=== PATIENT | male | born 1945 | race Caucasian/White ===

== ENCOUNTER → 2017-01-07 | Outpatient (CLI) | payer MEDICARE, BC ==
[2017-01-07 09:23] LABS: CH 30.9; CHCM 33.9; HCT 36.5 % (39.0-53.0); HGB 12.7 gm/dL (13.0-17.5); MCH 31.8 pg (25.0-35.0); MCHC 34.7 g/dL (31.0-37.0); MCV 91.6 fL (80.0-100.0); RBC 3.99 m/uL (4.30-5.90); WBC 5.8 k/uL (3.8-10.6)
[2017-01-07 09:44] LABS: Hemoglobin A1C 7.8 % (4.2-6.1)
== END | disposition home or self-care (01) ==
LOC: LABWHC1 08:05
PROVIDERS: ATTEND Psychiatry & Neurology Psychiatry
DX: Z51.81 Encounter for therapeutic drug level monitoring (principal); Z79.899 Other long term (current) drug therapy; E11.9 Type 2 diabetes mellitus without complications
CPT/HCPCS: 36415; 80164; 83036; 84460; 85027

== ENCOUNTER → 2017-04-18 | Outpatient (CLI) | payer MEDICARE, BC ==
--- NOTE | 2017-04-18 21:21 | CONS ---
DATE OF CONSULTATION: 04/18/2017 CONSULTATION/NEW PATIENT EVALUATION 71-year-old gentleman who has been evaluated in the sleep center for obstructive sleep apnea-hypopnea syndrome. HISTORY OF PRESENT ILLNESS/SLEEP-WAKE EVALUATION: Patient had been diagnosed with obstructive sleep apnea in [facility] around 35 years ago, after that underwent surgery on the throat and then was started on treatment with CPAP. Patient continued to have treatment CPAP last sleep study was done around 30 years ago. SLEEP SCHEDULE: The patient usual sleep scheduled from around 10:30 p.m. until 7:30 a.m. FALLING ASLEEP: Usually no problem with falling asleep. No TV in bedroom. DURING SLEEP: He sleeps on the side position. He wakes up from sleep 2 times with nocturia. DURING THE DAY/WAKE STATE: No significant sleepiness during the day. PAST MEDICAL HISTORY: Positive for Parkinson disease, bipolar disorder, hyperlipidemia, cervical spondylosis, diabetes and ( ). Medications: 1. Lamictal. 2. Depakote. 3. Tamsulosin. 4. Synthroid. 5. Drisdol. 6. Lovastatin. 7. Dulera. 8. Glimepiride. 9. Sinemet. 10. Tramadol. SOCIAL HISTORY: Negative for smoking. History of alcohol abuse in the past. Not using alcohol at the present time. FAMILY HISTORY: Heart problems, arthritis, cancer, snoring, bronchitis, diabetes, thyroid problems, and during the sleep, mental illness. REVIEW OF SYSTEMS: No fevers. No double vision. No recent chest pain. No shortness of breath. No abdominal pain. No bleeding episodes. No blood in urine. No seizure episodes. During physical exam, gentleman without distress. VITAL SIGNS: BP 143/75, HR 70, RR 16. Height 5 feet 11 inches. Weight 231.6. BMI 32.2. Neck 16 2/3 inches in circumference. HEENT: PERRLA, EOMI evaluation of oropharynx showed moderately low position of soft palate. No uvula. Very short distance between soft palate and posterior pharyngeal wall. Nasal septum slightly isometric. NECK: Supple. No JVD. Thyroid is not palpable. LUNGS: Clear to percussion and to auscultation. Good air exchange. No wheezing or rhonchi. HEART: Systolic murmur on aorta. ABDOMEN: Obese. Soft and nontender. Bowel sounds are present. No organomegaly appreciated. EXTREMITIES: 1+ bilateral ankle edema. No clubbing or cyanosis. Very minimal tremor of the fingers. FLANGE TURNER: Awake, alert, and oriented x3. Cranial nerves 2 to 7 intact. There is no fasciculation or atrophy noted. No focal deficits observed. Tfwzzd-[id number] normal at the present time. IMPRESSION: 1. Obstructive sleep apnea-hypopnea syndrome. Patient is on treatment with CPAP. Last study done about 30 years ago. Patient significantly changed his weight since previous study. Awakenings from sleep with nocturia. 2. Obesity. 3. Parkinson disease. 4. Status post uvulaectomy. 5. Status post tonsillectomy. 6. Hyperlipidemia. 7. Obesity. 8. Cervical spondylosis. 9. Diabetes mellitus. 10. Bipolar disorder. 11. Hypothyroidism. PLAN: 1. CPAP titration for re-evaluation of effective CPAP pressure at the present time. 2. Losing weight. 3. Sleep hygiene with regular time in bed for at least 8 hours. 4. No driving if feeling any sleepiness. Thank you very much for allowing me to participate in the management of your patient Sincerely, Anil Vargas MD, PhD, FAASM. Diplomat of [place] [employer], Sleep Medicine Board by [place] [employer] [place] [employer] Culinary Worker of [facility] [place]
== END ==
LOC: SLEEP 15:24
PROVIDERS: ATTEND Internal Medicine
DX: G47.33 Obstructive sleep apnea (adult) (pediatric) (principal); E66.9 Obesity, unspecified; E78.5 Hyperlipidemia, unspecified; M47.812 Spondylosis without myelopathy or radiculopathy, cervical region; E11.9 Type 2 diabetes mellitus without complications; E03.9 Hypothyroidism, unspecified; F31.9 Bipolar disorder, unspecified; G20 Parkinson's disease; Z98.890 Other specified postprocedural states; Z79.899 Other long term (current) drug therapy
CPT/HCPCS: 99211

== ENCOUNTER → 2017-05-24 | Outpatient (CLI) | payer MEDICARE, BC ==
[2017-05-24 08:36] LABS: Calcium 9.1 mg/dL (8.4-10.2); Potassium 4.7 mmol/L (3.5-5.1); Total Bilirubin 0.2 mg/dL (0.2-1.3)
[2017-05-24 08:44] LABS: CH 30.9; CHCM 33.8; HCT 36.1 % (39.0-53.0); HDW 2.83; MCH 30.5 pg (25.0-35.0); MCHC 33.2 g/dL (31.0-37.0); MCV 91.7 fL (80.0-100.0); RBC 3.94 m/uL (4.30-5.90); RDW 14.5 % (11.5-15.5); WBC 5.2 k/uL (3.8-10.6)
[2017-05-24 09:00] LABS: Appearance,Urine Clear (Clear); Bilirubin,Urine Negative (Negative); Glucose,Urine (UA) Negative (Negative); Ketones,Urine Negative (Negative); Leukocyte Esterase,Urine Negative (Negative); Nitrite,Urine Negative (Negative); PH, Urine 5.5 (5.0-8.0); Protein,Urine Negative (Negative); Specific Gravity,Urine 1.008 (1.001-1.035); UA Billing (MACRO vs. MICRO) CHEM; Urobilinogen,Urine <2.0 mg/dL (<2.0)
[2017-05-24 22:14] LABS: Hemoglobin A1C 6.5 % (4.2-6.1)
== END | disposition home or self-care (01) ==
LOC: LABWHC1 07:50
PROVIDERS: ATTEND Psychiatry & Neurology Psychiatry
DX: F31.60 Bipolar disorder, current episode mixed, unspecified (principal); E78.5 Hyperlipidemia, unspecified; E03.9 Hypothyroidism, unspecified
CPT/HCPCS: 36415; 80053; 80061; 81003; 83036; 84439; 84443; 85027

== ENCOUNTER → 2017-06-07 | Outpatient (CLI) | payer MEDICARE, BC ==
[2017-06-07 07:38] LABS: Appearance,Urine Clear (Clear); Bilirubin,Urine Negative (Negative); Glucose,Urine (UA) Negative (Negative); Ketones,Urine Negative (Negative); Leukocyte Esterase,Urine Negative (Negative); Nitrite,Urine Negative (Negative); PH, Urine 5.5 (5.0-8.0); Protein,Urine Negative (Negative); Specific Gravity,Urine 1.007 (1.001-1.035); UA Billing (MACRO vs. MICRO) CHEM; Urobilinogen,Urine <2.0 mg/dL (<2.0)
[2017-06-07 08:45] LABS: Basophils % (A) 1 %; CH 30.7; CHCM 33.6; Eosinophils # (A) 0.2 k/uL (0-0.7); Eosinophils % (A) 3 %; HCT 36.4 % (39.0-53.0); HGB 12.3 gm/dL (13.0-17.5); Luc # (Auto) 0.15; Luc % (Auto) 3; Lymphocytes # (A) 2.2 k/uL (1.0-4.8); Lymphocytes % (A) 42 %; MCHC 33.7 g/dL (31.0-37.0); MCV 91.8 fL (80.0-100.0); Mean Platelet Volume 6.9; Monocytes # (A) 0.3 k/uL (0-1.0); Monocytes % (A) 6 %; Neutrophils # (A) 2.4 k/uL (1.3-7.7); Neutrophils % (A) 46 %; RBC 3.96 m/uL (4.30-5.90); RDW 14.7 % (11.5-15.5); WBC 5.2 k/uL (3.8-10.6)
[2017-06-07 11:39] LABS: Calcium 9.4 mg/dL (8.4-10.2); Magnesium 2.2 mg/dL (1.6-2.3); Phosphorous 4.3 mg/dL (2.5-4.5); Potassium 4.9 mmol/L (3.5-5.1); Uric Acid 6.9 mg/dL (3.5-8.5)
[2017-06-07 11:51] LABS: % Iron Saturation 19.4 % (20-50)
== END | disposition home or self-care (01) ==
LOC: LABWHC1 06:53
PROVIDERS: ATTEND Nurse Practitioner Family
DX: N18.4 Chronic kidney disease, stage 4 (severe) (principal); E55.9 Vitamin D deficiency, unspecified; N25.81 Secondary hyperparathyroidism of renal origin; M10.9 Gout, unspecified; N39.0 Urinary tract infection, site not specified
CPT/HCPCS: 36415; 80048; 81003; 82306; 82728; 83540; 83550; 83735; 83970; 84100; 84550; 85025

== ENCOUNTER → 2017-09-20 | Outpatient (CLI) | payer MEDICARE, BC ==
[2017-09-20 08:38] LABS: Basophils % (A) 1 %; CH 30.5; Eosinophils # (A) 0.1 k/uL (0-0.7); Eosinophils % (A) 3 %; HCT 36.6 % (39.0-53.0); HDW 2.94; HGB 12.2 gm/dL (13.0-17.5); Luc # (Auto) 0.12; Luc % (Auto) 3; Lymphocytes # (A) 1.7 k/uL (1.0-4.8); Lymphocytes % (A) 36 %; MCHC 33.3 g/dL (31.0-37.0); Monocytes # (A) 0.3 k/uL (0-1.0); Monocytes % (A) 6 %; Neutrophils # (A) 2.5 k/uL (1.3-7.7); Neutrophils % (A) 53 %; RBC 4.07 m/uL (4.30-5.90); RDW 13.6 % (11.5-15.5); WBC 4.7 k/uL (3.8-10.6); WBC (Perox) 4.98
[2017-09-20 08:41] LABS: Appearance,Urine Clear (Clear); Bilirubin,Urine Negative (Negative); Glucose,Urine (UA) Negative (Negative); Ketones,Urine Negative (Negative); Leukocyte Esterase,Urine Negative (Negative); Nitrite,Urine Negative (Negative); Protein,Urine Negative (Negative); Specific Gravity,Urine 1.007 (1.001-1.035); UA Billing (MACRO vs. MICRO) CHEM; Urobilinogen,Urine <2.0 mg/dL (<2.0)
[2017-09-20 09:02] LABS: Calcium 9.3 mg/dL (8.4-10.2); Magnesium 2.1 mg/dL (1.6-2.3); Phosphorus 3.3 mg/dL (2.5-4.5); Total Bilirubin 0.2 mg/dL (0.2-1.3); Total Protein 6.3 g/dL (6.3-8.2); Uric Acid 6.5 mg/dL (3.5-8.5)
[2017-09-20 09:23] LABS: Prostate Specific Antigen 1.11 ng/mL (0.00-4.00)
[2017-09-20 14:57] LABS: Urine Creatinine 49.1 mg/dL
== END | disposition home or self-care (01) ==
LOC: LABWHC1 08:08
PROVIDERS: ATTEND Psychiatry & Neurology Psychiatry
DX: N18.3 Chronic kidney disease, stage 3 (moderate) (principal); G20 Parkinson's disease; E78.5 Hyperlipidemia, unspecified; E11.9 Type 2 diabetes mellitus without complications; N40.0 Benign prostatic hyperplasia without lower urinary tract symptoms; F31.60 Bipolar disorder, current episode mixed, unspecified; Z79.899 Other long term (current) drug therapy
CPT/HCPCS: 36415; 80053; 80061; 80164; 80175; 81003; 82043; 82306; 82550; 82570; 83036; 83735; 84100; 84153; 84439; 84443; 84550; 85025

== ENCOUNTER → 2017-10-02 | Outpatient (CLI) | payer MEDICARE, BC ==
--- NOTE | 2017-10-02 17:41 | PN ---
PROGRESS NOTE DATE OF SERVICE: 10/02/2017 72-year-old gentleman has been followed in Sleep Center for treatment of obstructive sleep apnea-hypopnea syndrome. The last CPAP titration done in 04/21/2017 and after that, I wrote patient prescription for new CPAP unit. Subsequently, he received new CPAP unit and now he came for followup visit. The patient is able to use his machine without any problems with relation to his mask pressure or humidity. He is using full-face mask. Edwards Sleepiness Scale today is 0. I checked patient's CPAP unit. Usage is 26/30 nights for more than 4 hours average 8.4 hours. Pressure in the range from 5-15. Most of the time pressure is 12 cm of water. Leak is only 4 L/minute which is perfect. Apnea-hypopnea index for the last month is 5.6, for the last 3 months is 5.4, for the last 6 months is 5.4. PHYSICAL EXAM: Patient in no distress. BP 137/69, HR 69, RR 16, weight 236.4, temperature 98.1, oxygen saturation on room 98%. Oropharynx low position of soft palate. ABDOMEN: Obese. Neck Supple, no JVD. Thyroid is not palpable. LUNGS Clear to percussion and to auscultation. Good air exchange. No wheezing or rhonchi. HEART S1, S2 regular. No gallops, or rubs. Slight systolic murmur. ABDOMEN Soft and nontender. Bowel sounds are present. No organomegaly appreciated. EXTREMITIES No clubbing or cyanosis. PAYROLL MANAGER Awake, alert, and oriented X3. Cranial nerves 2 to 7 intact. There is no fasciculation or atrophy. noted. No focal deficits observed. IMPRESSION: 1. Obstructive sleep apnea-hypopnea syndrome on control with CPAP at the pressure of 12 cm of water. Patient demonstrated good compliance with treatment benefitting from treatment. 2. Obesity. 3. Bipolar. 4. Parkinson disease. 5. Diabetes mellitus. 6. Hypothyroidism. 7. History of cervical spondylosis. 8. Status post uvulectomy. 9. Status post tonsillectomy. PLAN: 1. Continue treatment with CPAP every night for the whole night with the same pressure. 2. Losing weight. 3. Sleep hygiene with regular time in bed for at least 8 hours. 4. No driving if feeling sleepiness. Thank you very much for allowing me to participate in management of your patient. Sincerely. Anil Vargas MD, PhD, FAASM Diplomat of [place] [employer] [place] [employer] Flying Teacher of [facility] [place] MMISAK / CARLIE: [id number] /
== END | disposition home or self-care (01) ==
LOC: SLEEP 14:12
PROVIDERS: ATTEND Internal Medicine
DX: G47.33 Obstructive sleep apnea (adult) (pediatric) (principal); E66.9 Obesity, unspecified; F31.9 Bipolar disorder, unspecified; G20 Parkinson's disease; E11.9 Type 2 diabetes mellitus without complications; E03.9 Hypothyroidism, unspecified; Z98.890 Other specified postprocedural states

== ENCOUNTER 2017-10-24 09:33 | Day surgery (SDC) | payer MEDICARE, BC ==
[2017-10-23 13:27] VITALS: BMI 31.1
[2017-10-24 10:28] VITALS: RESP 16; TEMP 97.7
[2017-10-24] MEDS ORDERED: LACTATED RINGERS 1,000 ML IV ONE (10:29)
[2017-10-24 10:33] LABS: Glucose,Whole Blood 135 mg/dL (75-99)
[2017-10-24] MEDS ORDERED: PROPOFOL 10 MG/ML 20 ML VIAL IV ONE (11:04)
[2017-10-24] MEDS ORDERED: LIDOCAINE 1% INJ 10MG/ML (20 ML MDV) ONE (11:04)
--- NOTE | 2017-10-24 11:27 | P.PCN ---
Date of Procedure: 10/24/17 Procedure(s) Performed: BRIEF HISTORY: Patient is a 72-year-old pleasant white male, scheduled for an elective colonoscopy as a part of screening for colorectal neoplasia. PROCEDURE PERFORMED: Colonoscopy. PREOPERATIVE DIAGNOSIS: Screening for colon cancer. IV sedation per Anesthesia. PROCEDURE: After informed consent was obtained, the patient, was brought into the endoscopy unit. IV sedation was administered by Anesthesia under continuous monitoring. Digital rectal examination was normal. Initially the Olympus CF- 160 flexible video colonoscope was then inserted in the rectum, gradually advanced into the cecum without any difficulty. Careful examination was performed as the scope was gradually being withdrawn. Ileocecal valve and the appendiceal orifice were visualized and appeared normal. Prep was excellent. Mucosa of the cecum, appeared normal. In the ascending colon there were 2 polyps measuring 1 cm and 2 cm in size both of which were broad-based removed by piecemeal snare polypectomy. Following polypectomy there was some bleeding identified and hence a resolution clip was placed for good hemostasis. The rest of the ascending colon, appeared normal. In the transverse colon there was another 1 cm polyp removed by snare polypectomy. Rest of the transverse colon, descending colon, sigmoid colon, and rectum appeared normal. Moderate left sided diverticulosis seen. Retroflexion was performed in the rectum and no lesions were seen. The patient tolerated the procedure well. IMPRESSION: 1 cm and 2 cm broad-based polyps in the ascending colon status post piecemeal snare polypectomy, with some oozing status post resolution clip placement for hemostasis 1 cm transverse colon polyp serous was snare polypectomy Moderate left-sided diverticulosis RECOMMENDATIONS: Findings of this examination were discussed with the patient as well as a family. He was advised to follow with the biopsy results. If the biopsy shows an adenoma he can have a repeat colonoscopy in 2-3 years..
[2017-10-24 12:27] VITALS: BP 154/72; PULSE 62
== END 2017-10-24 12:39 | disposition home or self-care (01) ==
LOC: ORWHC2ENDO 09:33
PROVIDERS: ATTEND Internal Medicine Gastroenterology
DX: D12.2 Benign neoplasm of ascending colon (principal); D12.3 Benign neoplasm of transverse colon; K57.30 Diverticulosis of large intestine without perforation or abscess without bleeding; E78.5 Hyperlipidemia, unspecified; G47.33 Obstructive sleep apnea (adult) (pediatric); E07.9 Disorder of thyroid, unspecified; Z79.84 Long term (current) use of oral hypoglycemic drugs; Z79.899 Other long term (current) drug therapy
CPT/HCPCS: 88305; 45385; J2001; J2704; 45382

== ENCOUNTER → 2018-01-09 | Outpatient (CLI) | payer MEDICARE, BC ==
[2018-01-09 08:43] LABS: Basophils % (A) 1 %; Eosinophils # (A) 0.1 k/uL (0-0.7); Eosinophils % (A) 3 %; HCT 35.5 % (39.0-53.0); HGB 11.8 gm/dL (13.0-17.5); Lymphocytes # (A) 1.7 k/uL (1.0-4.8); Lymphocytes % (A) 37 %; MCH 29.5 pg (25.0-35.0); MCHC 33.2 g/dL (31.0-37.0); Mean Platelet Volume 7.1; Monocytes # (A) 0.3 k/uL (0-1.0); Monocytes % (A) 6 %; Neutrophils # (A) 2.4 k/uL (1.3-7.7); Neutrophils % (A) 52 %; Platelet Count 163 k/uL (150-450); RBC 3.99 m/uL (4.30-5.90); WBC 4.6 k/uL (3.8-10.6)
[2018-01-09 08:45] LABS: Appearance,Urine Clear (Clear); Bilirubin,Urine Negative (Negative); Blood,Urine Negative (Negative); Color,Urine Light Yellow; Glucose,Urine (UA) Negative (Negative); Ketones,Urine Negative (Negative); Leukocyte Esterase,Urine Negative (Negative); PH, Urine 5.5 (5.0-8.0); Protein,Urine Trace (Negative); Specific Gravity,Urine 1.009 (1.001-1.035); Urobilinogen,Urine <2.0 mg/dL (<2.0)
[2018-01-09 10:30] LABS: Albumin 3.8 g/dL (3.5-5.0); Calcium 9.7 mg/dL (8.4-10.2); Phosphorus 3.6 mg/dL (2.5-4.5); Potassium 4.7 mmol/L (3.5-5.1); Total Bilirubin 0.2 mg/dL (0.2-1.3); Total Protein 6.4 g/dL (6.3-8.2); Uric Acid 6.7 mg/dL (3.5-8.5)
[2018-01-09 10:36] LABS: Valproic Acid (Depakene) 47.9 ug/mL
[2018-01-09 16:55] LABS: Parathyroid Hormone Intact 126.3 pg/mL (14.0-72.0)
[2018-01-09 16:56] LABS: Iron Saturation 18.62 (15.00-50.00)
== END | disposition home or self-care (01) ==
LOC: LABWHC1 08:10
PROVIDERS: ATTEND Nurse Practitioner Family
DX: F31.9 Bipolar disorder, unspecified (principal); E78.5 Hyperlipidemia, unspecified; E11.22 Type 2 diabetes mellitus with diabetic chronic kidney disease; N18.4 Chronic kidney disease, stage 4 (severe); D63.1 Anemia in chronic kidney disease; M10.9 Gout, unspecified; N39.0 Urinary tract infection, site not specified; E55.9 Vitamin D deficiency, unspecified
CPT/HCPCS: 36415; 80053; 80061; 80164; 80175; 81003; 82550; 82728; 83540; 83550; 83735; 83970; 84100; 84550; 85025

== ENCOUNTER → 2018-04-25 | Outpatient (CLI) | payer MEDICARE, BC ==
[2018-04-25 10:34] LABS: Basophils # (A) 0.1 k/uL (0-0.2); Basophils % (A) 1 %; Eosinophils # (A) 0.1 k/uL (0-0.7); Eosinophils % (A) 2 %; HCT 38.9 % (39.0-53.0); HGB 12.8 gm/dL (13.0-17.5); Lymphocytes # (A) 1.9 k/uL (1.0-4.8); Lymphocytes % (A) 34 %; MCHC 32.9 g/dL (31.0-37.0); MCV 91.2 fL (80.0-100.0); Mean Platelet Volume 6.2; Monocytes # (A) 0.3 k/uL (0-1.0); Monocytes % (A) 6 %; Neutrophils # (A) 3.1 k/uL (1.3-7.7); Neutrophils % (A) 55 %; Platelet Count 183 k/uL (150-450); RBC 4.27 m/uL (4.30-5.90); RDW 14.5 % (11.5-15.5); WBC 5.6 k/uL (3.8-10.6)
[2018-04-25 10:41] LABS: Albumin 3.9 g/dL (3.5-5.0); Calcium 9.6 mg/dL (8.4-10.2); Magnesium 2.1 mg/dL (1.6-2.3); Phosphorus 3.7 mg/dL (2.5-4.5); Total Bilirubin 0.3 mg/dL (0.2-1.3); Total Protein 6.3 g/dL (6.3-8.2); Uric Acid 5.9 mg/dL (3.5-8.5)
[2018-04-25 10:46] LABS: Valproic Acid (Depakene) 41.2 ug/mL
[2018-04-25 10:59] LABS: Appearance,Urine Clear (Clear); Bilirubin,Urine Negative (Negative); Blood,Urine Negative (Negative); Color,Urine Light Yellow; Glucose,Urine (UA) Negative (Negative); Ketones,Urine Negative (Negative); Leukocyte Esterase,Urine Negative (Negative); Nitrite,Urine Negative (Negative); Protein,Urine Trace (Negative); T4, Free (Free Thyroxine) 0.9 ng/dL (0.78-2.19); Urobilinogen,Urine <2.0 mg/dL (<2.0)
[2018-04-25 17:13] LABS: Iron Saturation 30.06 (15.00-50.00)
[2018-04-25 17:21] LABS: Vitamin D 25 Hydroxy 46.4 ng/mL (30.0-100.0)
[2018-04-25 17:37] LABS: Parathyroid Hormone Intact 140.7 pg/mL (14.0-72.0)
[2018-04-25 18:32] LABS: Hemoglobin A1C 7.7 % (4.0-6.0)
== END | disposition home or self-care (01) ==
LOC: LABWHC1 09:32
PROVIDERS: ATTEND Psychiatry & Neurology Psychiatry
DX: E78.5 Hyperlipidemia, unspecified (principal); E11.22 Type 2 diabetes mellitus with diabetic chronic kidney disease; N18.4 Chronic kidney disease, stage 4 (severe); D63.1 Anemia in chronic kidney disease; F31.9 Bipolar disorder, unspecified; E55.9 Vitamin D deficiency, unspecified; N39.0 Urinary tract infection, site not specified; E21.3 Hyperparathyroidism, unspecified; M10.9 Gout, unspecified; F31.60 Bipolar disorder, current episode mixed, unspecified; E03.9 Hypothyroidism, unspecified; Z79.899 Other long term (current) drug therapy
CPT/HCPCS: 36415; 80053; 80061; 80164; 80175; 81003; 82306; 82550; 82728; 83036; 83540; 83550; 83735; 83970; 84100; 84439; 84443; 84550; 85025

== ENCOUNTER → 2018-05-29 | Outpatient (CLI) | payer MEDICARE, BC ==
--- NOTE | 2018-05-29 09:06 | US ---
EXAMINATION TYPE: US kidneys/renal and bladder DATE OF EXAM: 05/29/2018 COMPARISON: CLINICAL HISTORY: N184 CKD. Hx of left kidney simple cyst. abnormal labs. EXAM MEASUREMENTS: Right Kidney: 9.5 x 4.4 x 5.4 cm Left Kidney: 10.4 x 3.9 x 5.4 cm Right Kidney: No hydronephrosis or masses seen Left Kidney: Two cystic appearing lesions seen. 1- Mid cortical simple appearing cyst = 2.9 x 3.0 x 2 .6 cm. 2- lower pole in renal sinus= 1.5 x 1.4 x 1.3 cm Bladder: distended, wnl as visualized Bilateral Jets seen There is no evidence for hydronephrosis at this point in time. No nephrolithiasis is seen. No solid masses are identified. The urinary bladder is anechoic. Bilateral ureteral jets are seen. IMPRESSION: 1. Simple cyst left kidney.
== END | disposition home or self-care (01) ==
LOC: RADUSWWP 08:12
PROVIDERS: ATTEND Internal Medicine Nephrology
DX: N28.1 Cyst of kidney, acquired (principal); N18.4 Chronic kidney disease, stage 4 (severe)
CPT/HCPCS: 76770

== ENCOUNTER → 2018-06-23 | Outpatient (CLI) | payer MEDICARE, BC ==
[2018-06-23 10:14] LABS: HCT 34.3 % (39.0-53.0); HGB 11.8 gm/dL (13.0-17.5); MCH 30.6 pg (25.0-35.0); MCHC 34.4 g/dL (31.0-37.0); MCV 89.2 fL (80.0-100.0); Mean Platelet Volume 6.3; Platelet Count 162 k/uL (150-450); RBC 3.85 m/uL (4.30-5.90); RDW 14.1 % (11.5-15.5); WBC 4.5 k/uL (3.8-10.6)
[2018-06-23 10:30] LABS: Valproic Acid (Depakene) 61.5 ug/mL
== END | disposition home or self-care (01) ==
LOC: LABWHC1 09:16
PROVIDERS: ATTEND Psychiatry & Neurology Psychiatry
DX: F31.60 Bipolar disorder, current episode mixed, unspecified (principal); E03.9 Hypothyroidism, unspecified; Z79.899 Other long term (current) drug therapy
CPT/HCPCS: 36415; 80164; 82565; 84443; 85027

== ENCOUNTER → 2018-08-14 | Outpatient (CLI) | payer MEDICARE, BC ==
[2018-08-14 16:31] LABS: Basophils % (A) 1 %; Eosinophils # (A) 0.1 k/uL (0-0.7); Eosinophils % (A) 2 %; HCT 35.1 % (39.0-53.0); HGB 11.8 gm/dL (13.0-17.5); Lymphocytes # (A) 1.8 k/uL (1.0-4.8); Lymphocytes % (A) 35 %; MCH 29.9 pg (25.0-35.0); MCHC 33.7 g/dL (31.0-37.0); MCV 88.8 fL (80.0-100.0); Mean Platelet Volume 6.7; Monocytes # (A) 0.3 k/uL (0-1.0); Monocytes % (A) 5 %; Neutrophils # (A) 2.9 k/uL (1.3-7.7); Neutrophils % (A) 55 %; Platelet Count 165 k/uL (150-450); RBC 3.96 m/uL (4.30-5.90); RDW 14.2 % (11.5-15.5); WBC 5.3 k/uL (3.8-10.6)
[2018-08-14 16:42] LABS: Calcium 9.4 mg/dL (8.4-10.2)
== END | disposition home or self-care (01) ==
LOC: LABPAT 13:46
PROVIDERS: ATTEND Urology
DX: Z01.812 Encounter for preprocedural laboratory examination (principal); N40.1 Benign prostatic hyperplasia with lower urinary tract symptoms; E11.9 Type 2 diabetes mellitus without complications; N13.8 Other obstructive and reflux uropathy
CPT/HCPCS: 36415; 80048; 85025

== ENCOUNTER 2018-08-21 07:38 | Day surgery (SDC) | payer MEDICARE, BC ==
--- NOTE | 2018-08-17 08:54 | P.GSHP ---
History of Present Illness H&P Date: 08/17/18 Chief Complaint: Weak urinary stream The patient is a 73-year-old male with a long history of BPH. He has become increasingly bothered by his voiding symptoms. He reports a weak urinary stream with postvoid dribbling, hesitancy, and intermittency. Bladder emptying is adequate. He is currently taking Flomax, without benefit. - Cardiovascular Cardiovascular: Reports high blood pressure - Genitourinary (Male) Genitourinary: Reports as per HPI Past Medical History Past Medical History: Diabetes Mellitus, Hyperlipidemia, Sleep Apnea/CPAP/BIPAP , Thyroid Disorder History of Any Multi-Drug Resistant Organisms: None Reported Past Surgical History: Orthopedic Surgery, Tonsillectomy Additional Past Surgical History / Comment(s): left knee arthroscopy, left foot bone spur, cataract(not sure what eye), Past Anesthesia/Blood Transfusion Reactions: No Reported Reaction Smoking Status: Former smoker - Past Family History Father Family Medical History: Cancer Medications and Allergies Home Medications Medication Instructions Recorded Confirmed Type Divalproex [Depakote] 1,000 mg PO HS 01/29/16 10/23/17 History Levothyroxine Sodium [Synthroid] 200 mcg PO DAILY 01/29/16 10/24/17 History Lovastatin [Mevacor] 40 mg PO HS 01/29/16 10/23/17 History lamoTRIgine [LaMICtal] 200 mg PO DAILY 01/29/16 10/24/17 History traMADol HCl [Ultram] 50 mg PO Q6H PRN #30 tab 01/29/16 10/23/17 Rx Januvia(Dose Unknown) 1 tab PO 1200 10/23/17 10/24/17 History Levothyroxine Sodium [Synthroid] 100 mcg PO MOFR 10/23/17 10/24/17 History Sinement(Dose Unknown) 1 tab PO BID 10/23/17 10/23/17 History Tamsulosin [Flomax] 0.4 mg PO HS 10/23/17 10/23/17 History Allergies Allergy/AdvReac Type Severity Reaction Status Date / Time No Known Allergies Allergy Verified 10/23/17 13:20 Surgical - Exam - General well developed, well nourished, no distress - Neck no masses - Respiratory normal respiratory effort, clear to auscultation - Cardiovascular Rhythm: regular Abnormal Heart Sounds: no systolic murmur, no diastolic murmur, no rub, no S3 Gallop, no S4 Gallop, no click, no other - Abdomen Abdomen: soft, non tender, no guarding, no rigid, no rebound - Genitourinary normal penis with no external lesions, testicles non-tender - Rectum Rectum: normal sphincter tone, no masses, other (Prostate moderately enlarged and smooth) - Psychiatric oriented to time, oriented to person, oriented to place, speech is normal, memory intact Assessment and Plan (1) Enlarged prostate with lower urinary tract symptoms (LUTS) Status: Acute Code(s): N40.1 - BENIGN PROSTATIC HYPERPLASIA WITH LOWER URINARY TRACT SYMP SNOMED Code(s): 699911697 Plan: Cystoscopy, TURP: I discussed the options concerning surgery versus medication. I advised him with regard to TURP as opposed to minimally invasive procedures such as TUMT. TURP was also contrasted with TULVP. Potential risks were discussed, including anesthesia, bleeding, infection, retrograde ejaculation, incontinence, erectile dysfunction, and vesical neck contracture. It is anticipated that he may be admitted post-operatively, likely for one night. The patient expressed an understanding with regard to possible complications and outcome.
[2018-08-18 12:48] VITALS: BMI 30.5
[~2018-08-21 07:38] MED LIST: LACTATED RINGERS 1,000 ML IV SCH; ONDANSETRON 4 MG/2 ML VIAL IVP PRN; ceFAZolin IN SWFI 2 GM/20 ML SYRINGE IVP ONE
[2018-08-21] MEDS ORDERED: LIDOCAINE 1% 20 ML VIAL (10MG/ML) FOR IV START INTRADERMA ONE (08:03)
[2018-08-21 08:08] LABS: Glucose,Whole Blood 142 mg/dL (75-99)
[2018-08-21] MEDS ORDERED: SUCCINYLCHOLINE CHLORIDE VIAL 200 MG/10 ML VIAL IV ONE (10:14)
[2018-08-21] MEDS ORDERED: MIDAZOLAM 2 MG/2 ML VIAL ONE (10:14)
[2018-08-21] MEDS ORDERED: GLYCOPYRROLATE 0.2 MG/ML 2 ML VIAL ONE (10:14)
[2018-08-21] MEDS ORDERED: LIDOCAINE 1% INJ 10MG/ML (20 ML MDV) ONE (10:14)
[2018-08-21] MEDS ORDERED: PROPOFOL 10 MG/ML 20 ML VIAL IV ONE (10:14)
[2018-08-21] MEDS ORDERED: fentaNYL (PF) 50 MCG/ML 2 ML AMP ONE (10:14)
[2018-08-21] MEDS ORDERED: LACTATED RINGERS 1,000 ML IV ONE (10:49)
--- NOTE | 2018-08-21 12:18 | P.OP ---
Date of Procedure: 08/21/18 Preoperative Diagnosis: BPH with Obstruction Postoperative Diagnosis: Same Procedure(s) Performed: Cystoscopy, Bipolar Transurethral Resection of Prostate (TURP) Anesthesia: OZZIE Surgeon: Sahil Noguera Estimated Blood Loss (ml): 50 IV fluids (ml): 800 Pathology: other (Prostate chips) Condition: stable Disposition: PACU Indications for Procedure: The patient is a 73-year-old male with a long history of BPH. He has become increasingly bothered by his voiding symptoms. He reports a weak urinary stream with postvoid dribbling, hesitancy, and intermittency. Bladder emptying is adequate. He is currently taking Flomax, without benefit, and he has elected to undergo a TURP. Operative Findings: High median bar, lateral lobe obstruction. Description of Procedure: The patient was taken in the operating room and placed in the dorsolithotomy position. The external genitalia was prepped and draped sterilely. The 25- [place] ACMI resectoscope sheath was introduced into the bladder. The bladder was inspected. Both ureteral orifices were of normal anatomic location and configuration, and clear urine effluxed from both. No tumors or foreign bodies were seen. Examination of the prostate revealed complete obstruction with a bilobar configuration and a high median bar. Using the bipolar cutting loop, the lateral lobes were resected down to the surgical capsule. The floor of the prostate was then resected, proximal to the verumontanum. Lastly, any remaining anterior tissue was resected. The remaining apical tissue was then carefully resected. The resection was carried down to the surgical capsule in all 4 quadrants. The prostatic fossa was then carefully examined, and any areas of bleeding were controlled with electrocautery. A small capsular perforation was noted on the right, but no venous sinuses were exposed. Excellent hemostasis was attained. The resectoscope was withdrawn into the bulbous urethra. The external urinary sphincter remained intact. The prostatic fossa was open. The [employer] evacuator was used to remove all prostate chips from the bladder. These were saved and sent for pathologic examination. The resectoscope was removed, and a 20 [place] [employer] catheter was placed. The return was essentially clear. The patient tolerated the procedure well was taken to the recovery room in stable condition.
[2018-08-21 12:24] VITALS: TEMP 97.4
[2018-08-21 12:36] VITALS: RESP 16
[2018-08-21 12:45] LABS: Glucose,Whole Blood 150 mg/dL (75-99)
[2018-08-21 13:21] VITALS: BP 148/82
[2018-08-21 13:35] VITALS: PULSE 76
== END 2018-08-21 13:54 | disposition home or self-care (01) ==
LOC: OR 07:38
PROVIDERS: ATTEND Urology
DX: N40.1 Benign prostatic hyperplasia with lower urinary tract symptoms (principal); R39.12 Poor urinary stream; N39.43 Post-void dribbling; R39.11 Hesitancy of micturition; E11.9 Type 2 diabetes mellitus without complications; G47.30 Sleep apnea, unspecified; F19.20 Other psychoactive substance dependence, uncomplicated; E07.9 Disorder of thyroid, unspecified; Z87.891 Personal history of nicotine dependence; Z79.890 Hormone replacement therapy; Z79.899 Other long term (current) drug therapy
CPT/HCPCS: 88305; 52601; J2250; J0330; J2405; J2001; J3010; J2704; J0690

== ENCOUNTER → 2018-12-18 | Outpatient (CLI) | payer MEDICARE, BC ==
[2018-12-18 10:15] LABS: Appearance,Urine Clear (Clear); Bilirubin,Urine Negative (Negative); Blood,Urine Negative (Negative); Color,Urine Light Yellow; Glucose,Urine (UA) Negative (Negative); Ketones,Urine Negative (Negative); Leukocyte Esterase,Urine Negative (Negative); Nitrite,Urine Negative (Negative); Protein,Urine Negative (Negative); Specific Gravity,Urine 1.009 (1.001-1.035); Urobilinogen,Urine <2.0 mg/dL (<2.0)
[2018-12-18 10:17] LABS: Basophils % (A) 1 %; Eosinophils # (A) 0.1 k/uL (0-0.7); Eosinophils % (A) 2 %; HCT 37.2 % (39.0-53.0); Lymphocytes # (A) 1.2 k/uL (1.0-4.8); Lymphocytes % (A) 24 %; MCH 29.6 pg (25.0-35.0); MCHC 32.2 g/dL (31.0-37.0); Mean Platelet Volume 6.5; Monocytes # (A) 0.3 k/uL (0-1.0); Monocytes % (A) 7 %; Neutrophils # (A) 3.1 k/uL (1.3-7.7); Neutrophils % (A) 65 %; Platelet Count 160 k/uL (150-450); RBC 4.05 m/uL (4.30-5.90); RDW 14.4 % (11.5-15.5); WBC 4.8 k/uL (3.8-10.6)
[2018-12-18 16:18] LABS: Iron Saturation 21.67 (15.00-50.00)
[2018-12-18 16:24] LABS: Valproic Acid (Depakene) 44.8 ug/mL (50.0-100.0)
[2018-12-18 16:33] LABS: Carbon Dioxide 26.4 mmol/L (21.6-31.8); Magnesium 2.2 mg/dL (1.5-2.4); Phosphorus 4.4 mg/dL (2.4-5.1); Uric Acid 5.6 mg/dL (3.7-8.7)
[2018-12-18 16:34] LABS: Anion Gap 8.6 mmol/L (4.00-12.00); Calcium 9.3 mg/dL (8.7-10.3)
[2018-12-18 17:11] LABS: Parathyroid Hormone Intact 229.8 pg/mL (14.0-72.0)
== END | disposition home or self-care (01) ==
LOC: LABWHC1 09:16
PROVIDERS: ATTEND Nurse Practitioner Family
DX: F31.60 Bipolar disorder, current episode mixed, unspecified (principal); N18.4 Chronic kidney disease, stage 4 (severe); D63.1 Anemia in chronic kidney disease; E55.9 Vitamin D deficiency, unspecified; E21.3 Hyperparathyroidism, unspecified; M10.9 Gout, unspecified; N39.0 Urinary tract infection, site not specified
CPT/HCPCS: 36415; 80048; 80164; 81003; 82728; 83540; 83550; 83735; 83970; 84100; 84460; 84550; 85025

== ENCOUNTER → 2019-06-09 | Outpatient (CLI) | payer MEDICARE, BC ==
[2019-06-09 10:46] LABS: Appearance,Urine Clear (Clear); Bilirubin,Urine Negative (Negative); Blood,Urine Negative (Negative); Color,Urine Light Yellow; Glucose,Urine (UA) Negative (Negative); Ketones,Urine Negative (Negative); Leukocyte Esterase,Urine Negative (Negative); Nitrite,Urine Negative (Negative); Protein,Urine Trace (Negative); Urobilinogen,Urine <2.0 mg/dL (<2.0)
[2019-06-09 10:48] LABS: HCT 35.4 % (39.0-53.0); HGB 11.9 gm/dL (13.0-17.5); MCH 30.4 pg (25.0-35.0); MCHC 33.5 g/dL (31.0-37.0); MCV 90.8 fL (80.0-100.0); Mean Platelet Volume 6.7; Platelet Count 174 k/uL (150-450); RBC 3.89 m/uL (4.30-5.90); RDW 14.8 % (11.5-15.5); WBC 5.5 k/uL (3.8-10.6)
[2019-06-09 15:55] LABS: Iron Saturation 22.29 (15.00-50.00)
[2019-06-09 16:04] LABS: Vitamin D 25 Hydroxy 49.1 ng/mL (30.0-100.0)
[2019-06-09 16:12] LABS: Hemoglobin A1C 7.3 % (4.0-6.0)
[2019-06-09 16:14] LABS: African American GFR (CKD) 24.6 (60.0-200.0); Albumin 3.8 g/dL (3.80-4.90); Albumin/Globulin Ratio 1.9 (1.60-3.17); BUN/Creat Ratio 14.29 Ratio (12.00-20.00); Calcium 9.2 mg/dL (8.7-10.3); LDL Cholesterol,Calculated 78.4 mg/dL (0.0-131.0); Phosphorus 3.4 mg/dL (2.4-5.1); Potassium 4.5 mmol/L (3.5-5.5); Total Bilirubin 0.3 mg/dL (0.3-1.2); Total Protein 5.8 g/dL (6.2-8.2); Uric Acid 7.1 mg/dL (3.7-8.7); VLDL Calculation 60.6 mg/dL (5.00-40.00)
[2019-06-09 16:21] LABS: T4, Free (Free Thyroxine) 1.2 ng/dL (0.80-1.80)
[2019-06-09 17:48] LABS: Creatinine,Urine Random 64.2 mg/dL
[2019-06-09 18:22] LABS: Total Protein,Urine Random 16.2 mg/dL (0.0-13.5)
== END | disposition home or self-care (01) ==
LOC: LABWHC1 09:50
PROVIDERS: ATTEND Internal Medicine
DX: N39.0 Urinary tract infection, site not specified (principal); M10.9 Gout, unspecified; D64.9 Anemia, unspecified; E11.22 Type 2 diabetes mellitus with diabetic chronic kidney disease; N18.4 Chronic kidney disease, stage 4 (severe); E55.9 Vitamin D deficiency, unspecified; R80.9 Proteinuria, unspecified; E78.5 Hyperlipidemia, unspecified; E21.3 Hyperparathyroidism, unspecified; F31.60 Bipolar disorder, current episode mixed, unspecified; Z79.899 Other long term (current) drug therapy
CPT/HCPCS: 36415; 80053; 80061; 80164; 81003; 82306; 82570; 82728; 83036; 83540; 83550; 83735; 83970; 84100; 84156; 84439; 84443; 84550; 85027

== ENCOUNTER → 2019-10-14 | Outpatient (CLI) | payer MEDICARE, BC ==
[2019-10-14 08:59] LABS: Basophils % (A) 1 %; Eosinophils # (A) 0.2 k/uL (0-0.7); Eosinophils % (A) 3 %; HCT 35.6 % (39.0-53.0); HGB 12.1 gm/dL (13.0-17.5); Lymphocytes % (A) 41 %; MCV 91.1 fL (80.0-100.0); Mean Platelet Volume 6.6; Monocytes # (A) 0.2 k/uL (0-1.0); Monocytes % (A) 5 %; Neutrophils # (A) 2.3 k/uL (1.3-7.7); Neutrophils % (A) 48 %; Platelet Count 178 k/uL (150-450); RBC 3.91 m/uL (4.30-5.90); RDW 13.8 % (11.5-15.5); WBC 4.8 k/uL (3.8-10.6)
[2019-10-14 17:20] LABS: African American GFR (CKD) 24.5 (60.0-200.0); Albumin 3.9 g/dL (3.80-4.90); Albumin/Globulin Ratio 2.05 (1.60-3.17); Anion Gap 7.9 mmol/L (4.00-12.00); BUN/Creat Ratio 15.71 Ratio (12.00-20.00); Calcium 9.2 mg/dL (8.7-10.3); Carbon Dioxide 25.1 mmol/L (21.6-31.8); Chol/HDL Ratio 4.82; Globulin 1.9 g/dL (1.6-3.3); LDL Cholesterol,Calculated 77.8 mg/dL (0.0-131.0); Magnesium 2.2 mg/dL (1.5-2.4); Non-African American GFR(CKD) 21.1 (60.0-200.0); Phosphorus 3.8 mg/dL (2.4-5.1); Potassium 4.9 mmol/L (3.5-5.5); Total Bilirubin 0.2 mg/dL (0.3-1.2); Total Protein 5.8 g/dL (6.2-8.2); Uric Acid 6.7 mg/dL (3.7-8.7); VLDL Calculation 52.2 mg/dL (5.00-40.00)
[2019-10-14 17:29] LABS: T4, Free (Free Thyroxine) 0.8 ng/dL (0.80-1.80)
[2019-10-14 19:23] LABS: Hemoglobin A1C 7.5 % (4.0-6.0)
== END | disposition home or self-care (01) ==
LOC: LABWHC1 07:47
PROVIDERS: ATTEND Psychiatry & Neurology Psychiatry
DX: E78.5 Hyperlipidemia, unspecified (principal); E11.9 Type 2 diabetes mellitus without complications; N18.3 Chronic kidney disease, stage 3 (moderate); N40.0 Benign prostatic hyperplasia without lower urinary tract symptoms; E03.9 Hypothyroidism, unspecified
CPT/HCPCS: 36415; 80053; 80061; 80164; 82043; 82550; 82570; 83036; 83735; 83970; 84100; 84153; 84439; 84443; 84550; 85025

== ENCOUNTER 2019-11-11 07:06 | Day surgery (SDC) | payer MEDICARE, BC ==
[2019-11-06 11:26] VITALS: BMI 30.5
[~2019-11-11 07:06] MED LIST changes: +LIDOCAINE 1% 20 ML VIAL (10MG/ML) FOR IV START INTRADERMA PRN; -ONDANSETRON 4 MG/2 ML VIAL IVP PRN; -ceFAZolin IN SWFI 2 GM/20 ML SYRINGE IVP ONE
[2019-11-11 07:36] VITALS: TEMP 98.5
[2019-11-11 07:58] LABS: Glucose,Whole Blood 126 mg/dL (75-99)
[2019-11-11] MEDS ORDERED: PROPOFOL 10 MG/ML 20 ML VIAL IV ONE (08:00)
--- NOTE | 2019-11-11 08:17 | P.PCN ---
Date of Procedure: 11/11/19 Procedure(s) Performed: BRIEF HISTORY: Patient is a 74-year-old pleasant male, scheduled for an elective colonoscopy as a part of evaluation of prior history of colon polyps. Last colonoscopy was 3 years ago. PROCEDURE PERFORMED: Colonoscopy With snare polypectomy PREOPERATIVE DIAGNOSIS: History of colon polyps. IV sedation per Anesthesia. PROCEDURE: After informed consent was obtained, the patient, was brought into the endoscopy unit. IV sedation was administered by Anesthesia under continuous monitoring. Digital rectal examination was normal. Initially the Olympus CF-160 flexible video colonoscope was then inserted in the rectum, gradually advanced into the cecum without any difficulty. Careful examination was performed as the scope was gradually being withdrawn. Ileocecal valve and the appendiceal orifice were visualized and appeared normal. Prep was fair. Mucosa of the cecum, a ppeared normal. Descending colon there was a 1 cm flat polyp that was removed by snare polypectomy. Rest of theascending colon, transverse colon, descending colon, sigmoid colon, and rectum appeared normal. Retroflexion was performed in the rectum and no lesions were seen. The patient tolerated the procedure well. IMPRESSION: 1 cm flat ascending colon polyp status post polypectomy Moderate sigmoidal diverticulosis RECOMMENDATIONS: Findings of this examination were discussed with the patient as well as his family. he was advised to follow with the biopsy results. If the biopsy shows an adenoma he can have a repeat colonoscopy in 3-5 years
[2019-11-11 08:25] VITALS: RESP 18
[2019-11-11 08:57] VITALS: BP 136/77; PULSE 62
== END 2019-11-11 09:11 | disposition home or self-care (01) ==
LOC: ORWHC2ENDO 07:06
PROVIDERS: ATTEND Internal Medicine Gastroenterology
DX: Z12.11 Encounter for screening for malignant neoplasm of colon (principal); D12.2 Benign neoplasm of ascending colon; K57.30 Diverticulosis of large intestine without perforation or abscess without bleeding; Z86.010 Personal history of colon polyps; E78.5 Hyperlipidemia, unspecified; G47.33 Obstructive sleep apnea (adult) (pediatric); E11.9 Type 2 diabetes mellitus without complications; E07.9 Disorder of thyroid, unspecified; M19.90 Unspecified osteoarthritis, unspecified site; F41.9 Anxiety disorder, unspecified; F31.9 Bipolar disorder, unspecified; Z79.890 Hormone replacement therapy; Z87.891 Personal history of nicotine dependence; Z79.84 Long term (current) use of oral hypoglycemic drugs; Z79.899 Other long term (current) drug therapy; Z98.890 Other specified postprocedural states; Z99.89 Dependence on other enabling machines and devices
CPT/HCPCS: 93005; 88305; 45385; J2704

== ENCOUNTER → 2019-12-04 | Outpatient (CLI) | payer MEDICARE, BC ==
[2019-12-04 07:57] LABS: Basophils % (A) 1 %; Eosinophils # (A) 0.1 k/uL (0-0.7); Eosinophils % (A) 3 %; HCT 36.9 % (39.0-53.0); HGB 12.1 gm/dL (13.0-17.5); Lymphocytes % (A) 43 %; MCH 30.1 pg (25.0-35.0); MCHC 32.8 g/dL (31.0-37.0); MCV 91.7 fL (80.0-100.0); Mean Platelet Volume 6.8; Monocytes # (A) 0.3 k/uL (0-1.0); Monocytes % (A) 6 %; Neutrophils # (A) 2.1 k/uL (1.3-7.7); Neutrophils % (A) 45 %; Platelet Count 199 k/uL (150-450); RBC 4.02 m/uL (4.30-5.90); RDW 13.8 % (11.5-15.5); WBC 4.7 k/uL (3.8-10.6)
[2019-12-04 08:02] LABS: Appearance,Urine Clear (Clear); Bilirubin,Urine Negative (Negative); Blood,Urine Negative (Negative); Color,Urine Light Yellow; Glucose,Urine (UA) Negative (Negative); Ketones,Urine Negative (Negative); Leukocyte Esterase,Urine Negative (Negative); Nitrite,Urine Negative (Negative); Protein,Urine Negative (Negative); Specific Gravity,Urine 1.011 (1.001-1.035); Urobilinogen,Urine <2.0 mg/dL (<2.0)
[2019-12-04 11:31] LABS: % Iron Saturation 22.22 (15.00-50.00); African American GFR (CKD) 23.4 (60.0-200.0); Anion Gap 7.9 mmol/L (4.00-12.00); BUN/Creat Ratio 21.38 Ratio (12.00-20.00); Calcium 9.2 mg/dL (8.7-10.3); Carbon Dioxide 28.1 mmol/L (21.6-31.8); Magnesium 2.3 mg/dL (1.5-2.4); Non-African American GFR(CKD) 20.2 (60.0-200.0); Phosphorus 4.6 mg/dL (2.4-5.1); Potassium 4.9 mmol/L (3.5-5.5); Uric Acid 6.6 mg/dL (3.7-8.7)
[2019-12-04 11:41] LABS: Ferritin 88.9 ng/mL (22.0-322.0)
[2019-12-04 15:44] LABS: Creatinine,Urine Random 55.9 mg/dL
[2019-12-04 15:46] LABS: Total Protein,Urine Random 12.2 mg/dL (0.0-13.5)
== END | disposition home or self-care (01) ==
LOC: LABWHC1 07:20
PROVIDERS: ATTEND Nurse Practitioner Family
DX: E55.9 Vitamin D deficiency, unspecified (principal); N25.81 Secondary hyperparathyroidism of renal origin; M10.9 Gout, unspecified; N39.0 Urinary tract infection, site not specified; D63.1 Anemia in chronic kidney disease; N18.4 Chronic kidney disease, stage 4 (severe); R80.9 Proteinuria, unspecified
CPT/HCPCS: 36415; 80048; 81003; 82040; 82306; 82570; 82728; 83540; 83550; 83735; 83970; 84100; 84156; 84550; 85025

== ENCOUNTER 2019-12-31 22:28 | Observation (INO) | payer MEDICARE, BC ==
--- NOTE | 2019-12-31 22:54 | ED ---
Fall HPI - General Chief Complaint: Fall Stated Complaint: Fall Time Seen by Provider: 12/31/19 22:33 Source: EMS, RN notes reviewed, old records reviewed Mode of arrival: EMS - History of Present Illness Initial Comments: This is a 74-year-old male presents today for evaluation of fall. Patient was sent Symptoms appears the bed falling on his right hip he does have his head m ildly on the dresser stands The bed. Patient is complaining of severe right hip pain was initially amateur but the pain is increased and is not amateur now presented by EMS with an inability to walk reasonably left right hip severe right hip pain and no other injuries worsen patient did have a mild little bleeder on the back of his head, patient denies headaches and not on blood thinners MD Complaint: fall -: days(s) Fall From: standing, wheelchair When Fall Occurred: unsure Fall Witnessed: yes, by family Place Fall Occurred: home Loss of Consciousness: none Prolonged Down Time?: no Symptoms Prior to Fall: none Location: head, pelvis Location - Extremities: Right: Thigh Severity: moderate Severity scale (1-10): 5 Quality: burning Context: tripped/slipped Associated Symptoms: denies - Related Data Home Medications Medication Instructions Recorded Confirmed Divalproex [Depakote] 1,500 mg PO HS@1800 01/29/16 01/01/20 Levothyroxine Sodium [Synthroid] 200 mcg PO DAILY@0630 01/29/16 01/01/20 Lovastatin [Mevacor] 40 mg PO HS@1800 01/29/16 01/01/20 Carbidopa-Levodopa 25-100 mg 1 tab PO TID@0700,1200,1800 10/23/17 01/01/20 [Sinemet 25-100 mg] sitaGLIPtin [Januvia] 50 mg PO AC-LUNCH@1200 10/23/17 01/01/20 Glimepiride [Amaryl] 4 mg PO BID@0700,1800 08/20/18 01/01/20 Multivitamins, Thera [Multivitamin 1 tab PO DAILY@0700 08/20/18 01/01/20 (formulary)] lamoTRIgine [LaMICtal] 200 mg PO HS@1800 08/20/18 01/01/20 Escitalopram [Lexapro] 20 mg PO DAILY@0700 11/06/19 01/01/20 Cholecalciferol [Vitamin D3 (25 5,000 unit PO DAILY@0700 01/01/20 01/01/20 Mcg = 1000 Iu)] Previous Rx's Medication Instructions Recorded HYDROcodone/APAP 5-325MG [Rosamond 5] 1 each PO Q6HR PRN #12 tab 01/01/20 Allergies Allergy/AdvReac Type Severity Reaction Status Date / Time No Known Allergies Allergy Verified 01/01/20 07:41 Review of Systems ROS Statement: Those systems with pertinent positive or pertinent negative responses have been documented in the HPI. ROS Other: All systems not noted in ROS Statement are negative. Past Medical History Past Medical History: Diabetes Mellitus, Hyperlipidemia, Osteoarthritis (OA), Sleep Apnea/CPAP/BIPAP, Thyroid Disorder Additional Past Medical History / Comment(s): heart murmer, History of Any Multi-Drug Resistant Organisms: None Reported Past Surgical History: Orthopedic Surgery, Tonsillectomy Additional Past Surgical History / Comment(s): left knee arthroscopy, left foot bone spur, rt cataract, arthroscopy left shoulder, "bad" rt hip Past Anesthesia/Blood Transfusion Reactions: No Reported Reaction Past Psychological History: Anxiety, Bipolar, Depression Smoking Status: Former smoker Past Alcohol Use History: None Reported Past Drug Use History: None Reported - Past Family History Father Family Medical History: Cancer Mother Additional Family Medical History / Comment(s): Mother at age 74 from heart failure. Brother(s) Additional Family Medical History / Comment(s): Patient has one brother and one sister both have diabetes. Patient's 3 children with no major medical problems. General Exam Limitations: no limitations General appearance: alert, in no apparent distress Head exam: Present: atraumatic, normocephalic, normal inspection Eye exam: Present: normal appearance, PERRL, EOMI. Absent: scleral icterus, conjunctival injection, periorbital swelling ENT exam: Present: normal exam, mucous membranes moist Neck exam: Present: normal inspection. Absent: tenderness, meningismus, lymp hadenopathy Respiratory exam: Present: normal lung sounds bilaterally. Absent: respiratory distress, wheezes, rales, rhonchi, stridor Cardiovascular Exam: Present: regular rate, normal rhythm, normal heart sounds. Absent: systolic murmur, diastolic murmur, rubs, gallop, clicks GI/Abdominal exam: Present: soft, normal bowel sounds. Absent: distended, tenderness, guarding, rebound, rigid Extremities exam: Present: normal inspection, full ROM, normal capillary refill. Absent: tenderness, pedal edema, joint swelling, calf tenderness Back exam: Present: normal inspection Neurological exam: Present: alert, oriented X3, CN II-XII intact Psychiatric exam: Present: normal affect, normal mood Skin exam: Present: warm, dry, intact, normal color. Absent: rash Course Vital Signs 12/31/19 01/01/20 22:29 00:05 Temperature 99 F Pulse Rate 64 66 Respiratory 20 20 Rate Blood Pressure 136/71 138/63 O2 Sat by Pulse 97 96 Oximetry - Reevaluation(s) Reevaluation #1: 12/31/19 23:55 medical record is reviewed Reevaluation #2: 01/01/20 00:34 Patient is unable to ambulate - Consultations Consultation #1: Spoke with Dr. Orozco re admission he is agreeable Procedures - Bursa Procedures Consent Obtained: verbal consent Indications: injection only Side of Body: right Site of Procedure: trochanteric bursa XRAY Obtained: normal Antisepsis Used: Chlorhexidine Local Anesthetic Used: Lidocaine 1%, with Epi Amount of Anesthesia Used (mls): 6 Medication Injected: Methylprednisolone Acetate Lidocaine Added to Medication: Yes Patient Tolerated Procedure: well Complications: none - Laceration Laceration #1 Consent Obtained: verbal consent Site: scalp Size (cm): 2 Description: linear Depth: simple, single layer Type of Sutures: other (staple) Technique: simple, interrupted Patient Tolerated Procedure: well Medical Decision Making - Medical Decision Making 74 male DF for evaluation fall and right hip. Patient is CT is questionable hemarthrosis but no significant disease. Arthritis, patient is unable to ambulate will admit for pain control - Lab Data Result diagrams: 01/01/20 00:56 01/01/20 00:56 - EKG Data -: EKG Interpreted by Me (EKG shows sinus rhythm of 67, pO2 60, QRS 84, QTc 431) - Radiology Data Radiology results: report reviewed (X-ray right hip CT right hip negative for significant acute disease), image reviewed Disposition Clinical Impression: Fall, Right hip pain, Intractable pain, Unable to ambulate, Occipital scalp laceration Disposition: ADMITTED IP TO THIS HOSP Condition: Fair Is patient prescribed a controlled substance at d/c from ED?: No
--- NOTE | 2019-12-31 23:13 | XR ---
EXAMINATION TYPE: XR Hip RT and AP Pelvis DATE OF EXAM: 12/31/2019 COMPARISON: NONE HISTORY: Fall. Right hip pain TECHNIQUE: 3 views FINDINGS: Pelvic ring is intact. Proximal right femur and hip joint appear intact. Sacroiliac joints appear normal. There is no evidence of a fracture. IMPRESSION: Negative exam. No fracture.
[2019-12-31] MEDS ORDERED: LIDOCAINE 1%-EPI 1:100,000 20 ML VIAL SQ STA (23:21)
[2019-12-31] MEDS ORDERED: methylPREDNISolone ACETATE 80 MG/ML 1 ML VIAL INTRABURSA STA (23:21)
[2019-12-31] MEDS ORDERED: HYDROcodone/APAP 5-325MG 1 EACH TAB PO STA (23:22)
--- NOTE | 2020-01-01 00:24 | CT ---
EXAMINATION TYPE: CT hip RT wo con DATE OF EXAM: 01/01/2020 COMPARISON: None HISTORY: fall CT DLP: 787.1 mGycm Automated exposure control for dose reduction was used. Multiple axial sections were obtained from the mid ileum to the mid femur without contrast. The proximal femur is intact. There is no evidence of femoral fracture. There is minor spurring of th e acetabulum. Acetabulum is intact. The right sacroiliac joint appears normal. There is no evidence o f hip fracture. There is small hip joint effusion. There is soft tissue air anterior to the greater t rochanter of the femur probably from injection site. IMPRESSION: Minor osteoarthritis in the hip joint. No fracture seen. Small hip joint effusion. Fluid appears to h ave higher attenuation and hemarthrosis is possible.
[2020-01-01] MEDS ORDERED: MORPHINE SULFATE 4 MG/ML SYRINGE IV STA (00:30)
[2020-01-01] MEDS ORDERED: SODIUM CHLORIDE 0.9% 1,000 ML IV ONE (00:30)
[2020-01-01] MEDS ORDERED: SODIUM CHLORIDE 0.9% 1,000 ML IV STA ×2 (00:30)
[2020-01-01] MEDS ORDERED: MORPHINE SULFATE 2 MG/ML SYRINGE IVP PRN (00:30)
[2020-01-01 01:12] LABS: Basophils % (A) 0 %; Eosinophils # (A) 0.1 k/uL (0-0.7); Eosinophils % (A) 2 %; HCT 36.8 % (39.0-53.0); HGB 12.4 gm/dL (13.0-17.5); Lymphocytes # (A) 2.5 k/uL (1.0-4.8); Lymphocytes % (A) 41 %; MCHC 33.6 g/dL (31.0-37.0); MCV 89.5 fL (80.0-100.0); Mean Platelet Volume 6.6; Monocytes # (A) 0.3 k/uL (0-1.0); Monocytes % (A) 5 %; Neutrophils # (A) 2.9 k/uL (1.3-7.7); Neutrophils % (A) 48 %; Platelet Count 198 k/uL (150-450); RBC 4.11 m/uL (4.30-5.90)
[2020-01-01 01:17] LABS: Albumin 4.1 g/dL (3.5-5.0); Calcium 9.4 mg/dL (8.4-10.2); Magnesium 2.3 mg/dL (1.6-2.3); Phosphorus 3.9 mg/dL (2.5-4.5); Potassium 4.6 mmol/L (3.5-5.1); Total Bilirubin 0.1 mg/dL (0.2-1.3); Total Protein 6.8 g/dL (6.3-8.2)
[2020-01-01 01:24] LABS: INR 0.9 (<1.2); Prothrombin Time 9.7 sec (9.0-12.0)
[2020-01-01 01:27] LABS: Partial Thromboplastin Time 20.9 sec (22.0-30.0)
[2020-01-01 07:10] LABS: Glucose,Whole Blood 142 mg/dL (75-99)
[2020-01-01 08:00] VITALS: BP 146/72; PULSE 60; RESP 16; TEMP 98.4
--- NOTE | 2020-01-01 09:30 | P.CNOR ---
History of Present Illness - [facility] Consult date: 01/01/20 Consult reason: joint pain (Right hip) History of present illness: This is a 74-year-old male who is admitted through the emergency department yesterday with complaint of right hip pain. He states that he was playing with his cat while lying in bed and rolled out of the bed landing on his right hip. He had significant right hip pain and was admitted for further evaluation and workup for possible hip fracture. We're consulted for orthopedic evaluation. Past Medical History Past Medical History: Diabetes Mellitus, Hyperlipidemia, Osteoarthritis (OA), Sleep Apnea/CPAP/BIPAP, Thyroid Disorder Additional Past Medical History / Comment(s): heart murmer, diagnosed with DM 2 -3 years ago History of Any Multi-Drug Resistant Organisms: None Reported Past Surgical History: Orthopedic Surgery, Tonsillectomy Additional Past Surgical History / Comment(s): left knee arthroscopy, left foot bone spur, rt cataract, arthroscopy left shoulder, "bad" rt hip Past Anesthesia/Blood Transfusion Reactions: No Reported Reaction Past Psychological History: Anxiety, Bipolar, Depression Smoking Status: Former smoker Past Alcohol Use History: None Reported Additional Past Alcohol Use History / Comment(s): quit smoking 40 yrs ago, smoked for 20 yrs, 1 PPD Past Drug Use History: None Reported Additional Drug Use History / Comment(s): CBC oil daily to rt hip - Past Family History Father Family Medical History: Cancer Additional Family Medical History / Comment(s): lung cancer r/t smoking Medications and Allergies Home Medications Medication Instructions Recorded Confirmed Type Divalproex [Depakote] 1,500 mg PO HS@1800 01/29/16 01/01/20 History Levothyroxine Sodium [Synthroid] 200 mcg PO DAILY@0630 01/29/16 01/01/20 History Lovastatin [Mevacor] 40 mg PO HS@1800 01/29/16 01/01/20 History Carbidopa-Levodopa 25-100 mg 1 tab PO TID@0700,1200,1800 10/23/17 01/01/20 History [Sinemet 25-100] sitaGLIPtin [Januvia] 50 mg PO AC-LUNCH@1200 10/23/17 01/01/20 History Glimepiride [Amaryl] 4 mg PO BID@0700,1800 08/20/18 01/01/20 History Multivitamins, Thera [Multivitamin 1 tab PO DAILY@0700 08/20/18 01/01/20 History (formulary)] lamoTRIgine [LaMICtal] 200 mg PO HS@1800 08/20/18 01/01/20 History Escitalopram [Lexapro] 20 mg PO DAILY@0700 11/06/19 01/01/20 History Cholecalciferol [Vitamin D3 (25 5,000 unit PO DAILY@0700 01/01/20 01/01/20 History Mcg = 1000 Iu)] Allergies Allergy/AdvReac Type Severity Reaction Status Date / Time No Known Allergies Allergy Verified 01/01/20 07:41 Physical Examination This is a pleasant 74-year-old male in no acute distress. He is alert and oriented at this time. Exam of the head neck reveal no obvious deformity. There is one staple in place to the posterior aspect of the right side of the scalp. He has full cervical spine motion without difficulty or pain. No paraspinal musculature tenderness. Exam of the lower extremities reveals no obvious deformity. He does have difficulty raising the right leg in a chair. He is able to straight leg raise that with the left. There is mild hip irritability with internal and external rotation, more so with external rotation. Minimal pain with hip flexion. He has full foot and ankle motion without difficulty or pain. Neurovascular status to the lower extremities intact. Results X-ray and CT of the right hip reveal no obvious fracture. There is slight irregularity noted to the greater trochanter. Very mild, if any joint effusion right hip. - Labs Labs: Abnormal Lab Results - Last 24 Hours (Table) 01/01/20 01/01/20 01/01/20 Range/Units 00:56 00:56 00:56 RBC 4.11 L (4.30-5.90) m/uL Hgb 12.4 L (13.0-17.5) gm/dL Hct 36.8 L (39.0-53.0) % APTT 20.9 L (22.0-30.0) sec BUN 45 H (9-20) mg/dL Creatinine 2.97 H (0.66-1.25) mg/dL Glucose 139 H (74-99) mg/dL POC Glucose (mg/dL) (75-99) mg/dL Total Bilirubin 0.1 L (0.2-1.3) mg/dL AST 16 L (17-59) U/L 01/01/20 Range/Units 07:04 RBC (4.30-5.90) m/uL Hgb (13.0-17.5) gm/dL Hct (39.0-53.0) % APTT (22.0-30.0) sec BUN (9-20) mg/dL Creatinine (0.66-1.25) mg/dL Glucose (74-99) mg/dL POC Glucose (mg/dL) 142 H (75-99) mg/dL Total Bilirubin (0.2-1.3) mg/dL AST (17-59) U/L H & H 01/01/20 Range/Units 00:56 Hgb 12.4 L (13.0-17.5) gm/dL Hct 36.8 L (39.0-53.0) % Coagulation 01/01/20 Range/Units 00:56 INR 0.9 (<1.2) Result Diagrams: 01/01/20 00:56 01/01/20 00:56 Assessment and Plan (1) Fall Current Visit: Yes Status: Acute Code(s): W19.XXXA - UNSPECIFIED FALL, INITIAL ENCOUNTER SNOMED Code(s): 0235950 (2) Intractable pain Current Visit: Yes Status: Acute Code(s): R52 - PAIN, UNSPECIFIED SNOMED Code(s): 11267471 (3) Occipital scalp laceration Current Visit: Yes Status: Acute Code(s): S01.01XA - LACERATION WITHOUT FOREIGN BODY OF SCALP, INITIAL ENCOUNTER SNOMED Code(s): 536972932 (4) Right hip pain Current Visit: Yes Status: Acute Code(s): M25.551 - PAIN IN RIGHT HIP SNOMED Code(s): 33224671 Plan: The clinical and radiographic findings are discussed with the patient. It is discussed that at this time there is no distinct evidence of a hip fracture. Patient is okay with going home today. He will be nonweightbearing with use of a walker. He is to follow-up on Saturday for reevaluation and re-x-ray. It is discussed that if he continues to have pain we'll most likely obtain an MRI for more definitive evaluation.
[2020-01-01 11:50] LABS: Glucose,Whole Blood 144 mg/dL (75-99)
[2020-01-01] MEDS ORDERED: CARBIDOPA-LEVODOPA 25-100 MG 1 EACH TAB PO SCH (12:00)
[2020-01-01] MEDS ORDERED: LINAGLIPTIN 5 MG TABLET PO SCH (12:00)
[2020-01-01] MEDS ORDERED: INSULIN ASPART (NovoLOG) 100 UNIT/ML VIAL SQ SCH (12:30)
--- NOTE | 2020-01-01 12:44 | P.HPIM ---
History of Present Illness H&P Date: 01/01/20 Chief Complaint: Fall HISTORY AND PHYSICAL AND DISCHARGE SUMMARY: This is a 74-year-old male patient of Dr. Gerardo with past medical hi story of Parkinson's, obstructive sleep apnea, diabetes mellitus type 2, hyperlipidemia, hypothyroidism, generalized osteoarthritis. Patient states that he was petting his CAD and then got up to get out of bed and falling onto his right side and hit the right side of his head and right hip. He has had a previous injury to his right hip as well. He states it's difficult to walk due to pain. Patient came into [facility] emergency center for evaluation. EKG sinus rhythm with first-degree AV block and heart rate of 67. Temperature 90.9, heart rate 64, blood pressure 136/71 and pulse ox 97% on room air. Patient underwent a right trochanteric bursa steroid injection. Patient sustained a scalp laceration status post brian. Right hip x-ray and pelvis was negative exam, no fracture. CAT scan of the right hip revealed minor osteoarthritis and hip joint. No fracture seen. Small hip joint effusion. Fluid appears to have higher attenuation and hemarthrosis is possible. No convincing evidence of pathologic hip joint effusion and addendum. Patient placed on the observation unit and consult with orthopedics. Patient has been seen by orthopedics with recommendations for nonweightbearing on the right leg. Patient will have follow-up next week and if still painful, MRI may be done. Patient states he does have a walker for ambulation. He states he will obtain a toilette riser and shower chair as well. He does not feel he needs home care. Patient will be discharged home today in stable condition. Patient will be discharged home on [place] for 3 days. Map score of 110. Review of Systems Constitutional: Denies chills, Denies fatigue, Denies fever, Denies lethargy, Denies malaise, Denies poor appetite, Denies weakness Eyes: denies blurred vision, denies pain Ears, nose, mouth and throat: Denies dysphagia, Denies headache, Denies nasal congestion, Denies nasal discharge, Denies sore throat, Denies vertigo Cardiovascular: Denies chest pain, Denies decreased exercise tolerance, Denies dyspnea on exertion, Denies leg edema, Denies shortness of breath, Denies syncope Respiratory: Denies cough, Denies cough with sputum, Denies dyspnea, Denies excessive sputum, Denies hemoptysis, Denies respiratory infections, Denies wheezing Gastrointestinal: Denies abdominal pain, Denies diarrhea, Denies loss of appetite, Denies nausea, Denies vomiting Genitourinary: Denies dysuria, Denies urinary retention Musculoskeletal: Denies frequent falls, Denies gait dysfunction, Denies muscle weakness, Denies myalgias Musculoskeletal: right: hip pain, hip stiffness Integumentary: Reports wounds, Denies pruritus, Denies rash Neurological: Denies change in mentation, Denies change in speech, Denies numbness, Denies weakness Psychiatric: Denies anxiety, Denies depression Endocrine: Denies fatigue, Denies weight change Past Medical History Past Medical History: Diabetes Mellitus, Hyperlipidemia, Osteoarthritis (OA), Sleep Apnea/CPAP/BIPAP, Thyroid Disorder Additional Past Medical History / Comment(s): heart murmer, diagnosed with DM 2 -3 years ago History of Any Multi-Drug Resistant Organisms: None Reported Past Surgical History: Orthopedic Surgery, Tonsillectomy Additional Past Surgical History / Comment(s): left knee arthroscopy, left foot bone spur, rt cataract, arthroscopy left shoulder, "bad" rt hip Past Anesthesia/Blood Transfusion Reactions: No Reported Reaction Past Psychological History: Anxiety, Bipolar, Depression Smoking Status: Former smoker Past Alcohol Use History: None Reported Additional Past Alcohol Use History / Comment(s): quit smoking 40 yrs ago, smoked for 20 yrs, 1 PPD. Patient denies any alcohol use. Patient is single. Past Drug Use History: None Reported Additional Drug Use History / Comment(s): CBC oil daily to rt hip - Past Family History Father Family Medical History: Cancer Additional Family Medical History / Comment(s): Father at age 71 from lung cancer with history of diabetes. Mother Additional Family Medical History / Comment(s): Mother at age 74 from heart failure. Brother(s) Additional Family Medical History / Comment(s): Patient has one brother and one sister both have diabetes. Patient's 3 children with no major medical problems. Medications and Allergies Home Medications Medication Instructions Recorded Confirmed Type Divalproex [Depakote] 1,500 mg PO HS@1800 01/29/16 01/01/20 History Levothyroxine Sodium [Synthroid] 200 mcg PO DAILY@0630 01/29/16 01/01/20 History Lovastatin [Mevacor] 40 mg PO HS@1800 01/29/16 01/01/20 History Carbidopa-Levodopa 25-100 mg 1 tab PO TID@0700,1200,1800 10/23/17 01/01/20 History [Sinemet 25-100 mg] sitaGLIPtin [Januvia] 50 mg PO AC-LUNCH@1200 10/23/17 01/01/20 History Glimepiride [Amaryl] 4 mg PO BID@0700,1800 08/20/18 01/01/20 History Multivitamins, Thera [Multivitamin 1 tab PO DAILY@0700 08/20/18 01/01/20 History (formulary)] lamoTRIgine [LaMICtal] 200 mg PO HS@1800 08/20/18 01/01/20 History Escitalopram [Lexapro] 20 mg PO DAILY@0700 11/06/19 01/01/20 History Cholecalciferol [Vitamin D3 (25 5,000 unit PO DAILY@0700 01/01/20 01/01/20 History Mcg = 1000 Iu)] HYDROcodone/APAP 5-325MG [[place] 5] 1 each PO Q6HR PRN #12 tab 01/01/20 Rx Allergies Allergy/AdvReac Type Severity Reaction Status Date / Time No Known Allergies Allergy Verified 01/01/20 07:41 Physical Exam Vitals: Vital Signs Temp Pulse Pulse Resp BP BP Pulse Ox 01/01/20 07:00 98.4 F 60 16 146/72 96 01/01/20 02:22 98.0 F 64 18 154/71 97 01/01/20 00:05 66 20 138/63 96 12/31/19 22:29 99 F 64 20 136/71 97 Intake and Output 12/31/19 01/01/20 01/01/20 22:59 06:59 14:59 Other: Voiding Method Toilet Toilet # Voids 1 Weight 98.43 kg 98.43 kg Gen: This is a 74-year-old male. Patient is sitting in recliner appears to be comfortable and in no acute distress. HEENT: Head is atraumatic, normocephalic. Pupils equal, round. Sclerae is anicteric. NECK: Supple. No JVD. No lymphadenopathy. No thyromegaly. LUNGS: Clear to auscultation. No wheezes or rhonchi. No intercostal retractions. HEART: Regular rate and rhythm. No murmur. ABDOMEN: Soft. Bowel sounds are present. No masses. No tenderness. EXTREMITIES: No pedal edema. No calf tenderness. No obvious deformity. No shortening. NEUROLOGICAL: Patient is awake, alert and oriented x3. Cranial nerves 2 through 12 are grossly intact. Results CBC & Chem 7: 01/01/20 00:56 01/01/20 00:56 Labs: Abnormal Lab Results - Last 24 Hours (Table) 01/01/20 01/01/20 01/01/20 Range/Units 00:56 00:56 00:56 RBC 4.11 L (4.30-5.90) m/uL Hgb 12.4 L (13.0-17.5) gm/dL Hct 36.8 L (39.0-53.0) % APTT 20.9 L (22.0-30.0) sec BUN 45 H (9-20) mg/dL Creatinine 2.97 H (0.66-1.25) mg/dL Glucose 139 H (74-99) mg/dL POC Glucose (mg/dL) (75-99) mg/dL Total Bilirubin 0.1 L (0.2-1.3) mg/dL AST 16 L (17-59) U/L 01/01/20 Range/Units 07:04 RBC (4.30-5.90) m/uL Hgb (13.0-17.5) gm/dL Hct (39.0-53.0) % APTT (22.0-30.0) sec BUN (9-20) mg/dL Creatinine (0.66-1.25) mg/dL Glucose (74-99) mg/dL POC Glucose (mg/dL) 142 H (75-99) mg/dL Total Bilirubin (0.2-1.3) mg/dL AST (17-59) U/L Thrombosis Risk Factor Assmnt - DVT/VTE Prophylaxis DVT/VTE Prophylaxis: Low risk, early ambulation encouraged - Choose All That Apply Any of the Below Risk Factors Present?: Yes Each Factor Represents 1 point: Obesity (BMI >25) Other Risk Factors: Yes Each Risk Factor Represents 3 Points: Age 75 years or older Each Risk Factor Represents 5 Points: Hip, pelvis, or leg fracture (< 1 month) Thrombosis Risk Factor Assessment Total Risk Factor Score: 9 Thrombosis Risk Factor Assessment Level: High Risk Assessment and Plan Plan: 1. Fall with right hip pain, occipital scalp laceration. Patient placed on the MedSurg floor. He is status post steroid injection to the right hip and orth opedic consult ordered. 2. Intractable right hip pain. Orthopedic consult appreciated. Patient is to be nonweightbearing patient has a walker and will obtain toilet seat riser, shower chair. He denies need for home care. 3. Scalp laceration status post brian. Keep area clean and dry. 4. Diabetes mellitus type 2. Continue Januvia. 5. Parkinson's. Continue Sinemet. Patient placed as an observation status. Discharge plan: home Impression and plan of care have been directed as dictated by the signing physician. Marci Morrell nurse practitioner acting as scribe for signing ph ysician.
[2020-01-01] MEDS ORDERED: ATORVASTATIN 10 MG TAB PO SCH (18:00)
[2020-01-01] MEDS ORDERED: lamoTRIgine 100 MG TAB PO SCH (18:00)
[2020-01-01] MEDS ORDERED: DIVALPROEX 500 MG TABLET.DR PO SCH (18:00)
[2020-01-02] MEDS ORDERED: LEVOTHYROXINE 100 MCG TAB PO SCH (06:30)
[2020-01-02] MEDS ORDERED: ESCITALOPRAM 20 MG TAB PO SCH (07:00)
== END 2020-01-01 13:23 | disposition home or self-care (01) ==
LOC: EC 22:28 → 4SSUR 01-01 00:32
PROVIDERS: ADMIT Internal Medicine Geriatric Medicine; ATTEND Internal Medicine Geriatric Medicine
DX: M25.551 Pain in right hip (principal); M25.451 Effusion, right hip; S01.01XA Laceration without foreign body of scalp, initial encounter; W18.30XA Fall on same level, unspecified, initial encounter; Y92.009 Unspecified place in unspecified non-institutional (private) residence as the place of occurrence of the external cause; M15.0 Primary generalized (osteo)arthritis; E11.9 Type 2 diabetes mellitus without complications; E78.5 Hyperlipidemia, unspecified; G47.33 Obstructive sleep apnea (adult) (pediatric); Z99.89 Dependence on other enabling machines and devices; I44.0 Atrioventricular block, first degree; E03.9 Hypothyroidism, unspecified; G20 Parkinson's disease; R01.1 Cardiac murmur, unspecified; M77.9 Enthesopathy, unspecified; H26.9 Unspecified cataract; F41.9 Anxiety disorder, unspecified; Z87.891 Personal history of nicotine dependence; F31.9 Bipolar disorder, unspecified; R26.2 Difficulty in walking, not elsewhere classified; Z79.890 Hormone replacement therapy; Z79.84 Long term (current) use of oral hypoglycemic drugs; Z79.899 Other long term (current) drug therapy; Z90.89 Acquired absence of other organs; Z82.49 Family history of ischemic heart disease and other diseases of the circulatory system; Z83.3 Family history of diabetes mellitus; Z80.1 Family history of malignant neoplasm of trachea, bronchus and lung; Z98.41 Cataract extraction status, right eye
CPT/HCPCS: 12001; 20610; 99285; 93005; 97162; 80053; 83735; 84100; 85025; 85610; 85730; 73502; 73700; G0378; J2270; J1040

== ENCOUNTER → 2020-01-22 | Outpatient (CLI) | payer MEDICARE, BC ==
[2020-01-22 11:31] LABS: Basophils % (A) 0 %; Eosinophils % (A) 1 %; HCT 38.8 % (39.0-53.0); HGB 12.5 gm/dL (13.0-17.5); Lymphocytes # (A) 1.9 k/uL (1.0-4.8); Lymphocytes % (A) 51 %; MCH 30.1 pg (25.0-35.0); MCHC 32.3 g/dL (31.0-37.0); MCV 93.4 fL (80.0-100.0); Mean Platelet Volume 6.8; Monocytes # (A) 0.2 k/uL (0-1.0); Monocytes % (A) 6 %; Neutrophils # (A) 1.5 k/uL (1.3-7.7); Neutrophils % (A) 40 %; Platelet Count 116 k/uL (150-450); RBC 4.16 m/uL (4.30-5.90); RDW 14.2 % (11.5-15.5); WBC 3.8 k/uL (3.8-10.6)
[2020-01-22 16:26] LABS: African American GFR (CKD) 25.6 (60.0-200.0); Anion Gap 6.6 mmol/L (4.00-12.00); BUN/Creat Ratio 16.67 Ratio (12.00-20.00); Calcium 8.9 mg/dL (8.7-10.3); Carbon Dioxide 29.4 mmol/L (21.6-31.8); Chol/HDL Ratio 3.15; LDL Cholesterol,Calculated 49.8 mg/dL (0.0-131.0); Non-African American GFR(CKD) 22.1 (60.0-200.0); Potassium 5.4 mmol/L (3.5-5.5); Total Bilirubin 0.3 mg/dL (0.3-1.2); VLDL Calculation 34.2 mg/dL (5.00-40.00)
[2020-01-22 16:27] LABS: Valproic Acid (Depakene) 56.6 ug/mL (50.0-100.0)
[2020-01-22 19:31] LABS: Hemoglobin A1C 7.3 % (4.0-6.0)
== END | disposition home or self-care (01) ==
LOC: LABWHC1 09:53
PROVIDERS: ATTEND Psychiatry & Neurology Psychiatry
DX: E03.9 Hypothyroidism, unspecified (principal); E08.21 Diabetes mellitus due to underlying condition with diabetic nephropathy; E78.5 Hyperlipidemia, unspecified; F31.60 Bipolar disorder, current episode mixed, unspecified; Z79.899 Other long term (current) drug therapy
CPT/HCPCS: 36415; 80053; 80061; 80164; 83036; 84443; 85025

== ENCOUNTER → 2020-04-18 | Outpatient (CLI) | payer MEDICARE, BC ==
[2020-04-18 08:05] LABS: HCT 34.4 % (39.0-53.0); HGB 11.1 gm/dL (13.0-17.5); MCH 30.3 pg (25.0-35.0); MCHC 32.4 g/dL (31.0-37.0); MCV 93.3 fL (80.0-100.0); Mean Platelet Volume 6.7; Platelet Count 157 k/uL (150-450); RBC 3.68 m/uL (4.30-5.90); RDW 14.3 % (11.5-15.5); WBC 5.6 k/uL (3.8-10.6)
[2020-04-18 11:43] LABS: Hemoglobin A1C 6.3 % (4.0-6.0)
[2020-04-18 12:22] LABS: Valproic Acid (Depakene) 46.5 ug/mL (50.0-100.0)
[2020-04-18 12:29] LABS: African American GFR (CKD) 24.5 (60.0-200.0); Anion Gap 8.1 mmol/L (4.00-12.00); BUN/Creat Ratio 15.36 Ratio (12.00-20.00); Calcium 9.1 mg/dL (8.7-10.3); Carbon Dioxide 24.9 mmol/L (21.6-31.8); Non-African American GFR(CKD) 21.1 (60.0-200.0); Potassium 4.8 mmol/L (3.5-5.5)
[2020-04-18 12:37] LABS: T4, Free (Free Thyroxine) 1.1 ng/dL (0.80-1.80)
== END | disposition home or self-care (01) ==
LOC: LABWHC1 07:03
PROVIDERS: ATTEND Psychiatry & Neurology Psychiatry
DX: E11.9 Type 2 diabetes mellitus without complications (principal); F31.60 Bipolar disorder, current episode mixed, unspecified; Z79.899 Other long term (current) drug therapy
CPT/HCPCS: 36415; 80048; 80164; 83036; 84439; 84443; 85027

== ENCOUNTER → 2020-06-30 | Outpatient (CLI) | payer MEDICARE, BC ==
[2020-06-30 14:46] LABS: Appearance,Urine Clear (Clear); Bilirubin,Urine Negative (Negative); Blood,Urine Negative (Negative); Color,Urine Light Yellow; Glucose,Urine (UA) Trace (Negative); Ketones,Urine Negative (Negative); Leukocyte Esterase,Urine Negative (Negative); Nitrite,Urine Negative (Negative); Protein,Urine Negative (Negative); Specific Gravity,Urine 1.009 (1.001-1.035); Urobilinogen,Urine <2.0 mg/dL (<2.0)
[2020-06-30 14:48] LABS: Basophils % (A) 1 %; Eosinophils # (A) 0.1 k/uL (0-0.7); Eosinophils % (A) 2 %; HCT 37.7 % (39.0-53.0); HGB 12.4 gm/dL (13.0-17.5); Lymphocytes # (A) 2.2 k/uL (1.0-4.8); Lymphocytes % (A) 40 %; MCH 30.6 pg (25.0-35.0); MCV 92.8 fL (80.0-100.0); Mean Platelet Volume 6.7; Monocytes # (A) 0.2 k/uL (0-1.0); Monocytes % (A) 4 %; Neutrophils # (A) 2.7 k/uL (1.3-7.7); Neutrophils % (A) 51 %; Platelet Count 189 k/uL (150-450); RBC 4.06 m/uL (4.30-5.90); RDW 13.7 % (11.5-15.5); WBC 5.3 k/uL (3.8-10.6)
[2020-06-30 15:02] LABS: Protein/Creatinine Ratio,Urine 0.34
[2020-06-30 21:59] LABS: % Iron Saturation 17.07 (15.00-50.00); African American GFR (CKD) 20.1 (60.0-200.0); Albumin 3.9 g/dL (3.80-4.90); Anion Gap 8.1 mmol/L (4.00-12.00); BUN/Creat Ratio 12.73 Ratio (12.00-20.00); Calcium 9.2 mg/dL (8.7-10.3); Carbon Dioxide 27.9 mmol/L (21.6-31.8); Magnesium 2.4 mg/dL (1.5-2.4); Non-African American GFR(CKD) 17.3 (60.0-200.0); Phosphorus 3.3 mg/dL (2.4-5.1); Potassium 5.2 mmol/L (3.5-5.5); Uric Acid 6.2 mg/dL (3.7-8.7)
[2020-06-30 22:08] LABS: Ferritin 121.3 ng/mL (22.0-322.0)
== END | disposition home or self-care (01) ==
LOC: LABWHC1 14:08
PROVIDERS: ATTEND Nurse Practitioner Family
DX: N18.4 Chronic kidney disease, stage 4 (severe) (principal); D63.1 Anemia in chronic kidney disease; M10.9 Gout, unspecified; N39.0 Urinary tract infection, site not specified; R80.9 Proteinuria, unspecified
CPT/HCPCS: 36415; 80048; 81003; 82040; 82306; 82570; 82728; 83540; 83550; 83735; 83970; 84100; 84156; 84550; 85025

== ENCOUNTER → 2020-10-11 | Outpatient (CLI) | payer MEDICARE, BC ==
--- NOTE | 2020-10-11 14:33 | US ---
EXAMINATION TYPE: US kidneys/renal and bladder DATE OF EXAM: 10/11/2020 COMPARISON: US CLINICAL HISTORY: N18.4 CKD Stage 4. EXAM MEASUREMENTS: Right Kidney: 9.5 x 5.0 x 6.7 cm Left Kidney: 10.5 x 5.6 x 6.1 cm Right Kidney: Simple appearing exophytic cyst measures 1.3 x 1.2 x 1.3 cm Left Kidney: Simple cyst measures 3.1 x 2.7 x 3.5 cm Bladder: wnl Bilateral Jets seen: No IMPRESSION: Bilateral renal cysts
== END | disposition home or self-care (01) ==
LOC: RADUSWWP 13:11
PROVIDERS: ATTEND Internal Medicine Nephrology
DX: N28.1 Cyst of kidney, acquired (principal); N18.4 Chronic kidney disease, stage 4 (severe)
CPT/HCPCS: 76770

== ENCOUNTER → 2020-12-21 | Outpatient (CLI) | payer MEDICARE, BC ==
[2020-12-21 08:04] LABS: Appearance,Urine Clear (Clear); Bilirubin,Urine Negative (Negative); Blood,Urine Negative (Negative); Color,Urine Light Yellow; Glucose,Urine (UA) Negative (Negative); Ketones,Urine Negative (Negative); Leukocyte Esterase,Urine Negative (Negative); Nitrite,Urine Negative (Negative); Protein,Urine Negative (Negative); Urobilinogen,Urine <2.0 mg/dL (<2.0)
[2020-12-21 09:36] LABS: Creatinine,Urine Random 82.2 mg/dL; Protein/Creatinine Ratio,Urine 0.268
[2020-12-21 11:05] LABS: Basophils # (A) 0.05 X 10*3/uL (0.00-0.10); Basophils % (A) 0.9 %; Eosinophils # (A) 0.16 X 10*3/uL (0.04-0.35); Eosinophils % (A) 2.9 %; HCT 37.5 % (39.6-50.0); HGB 11.9 g/dL (13.0-17.0); Lymphocytes % (A) 46.7 %; MCH 30.2 pg (27.0-32.0); MCHC 31.7 g/dL (32.0-37.0); MCV 95.2 fL (80.0-97.0); Mean Platelet Volume 9.5 fL (9.5-12.2); Monocytes # (A) 0.48 X 10*3/uL (0.20-1.00); Monocytes % (A) 8.6 %; Neutrophils # (A) 2.26 X 10*3/uL (1.80-7.70); Neutrophils % (A) 40.5 %; Platelet Count 208 X 10*3/uL (140-440); RBC 3.94 X 10*6/uL (4.40-5.60); RDW 13.2 % (11.5-14.5); WBC 5.57 X 10*3/uL (4.50-10.00)
[2020-12-21 11:16] LABS: Valproic Acid (Depakene) 59.9 ug/mL (50.0-100.0)
[2020-12-21 11:24] LABS: T4, Free (Free Thyroxine) 1.2 ng/dL (0.80-1.80)
[2020-12-21 11:27] LABS: Ferritin 234.6 ng/mL (22.0-322.0)
[2020-12-21 12:37] LABS: % Iron Saturation 16.15 (15.00-50.00); African American GFR (CKD) 15.8 (60.0-200.0); Albumin 4.1 g/dL (3.80-4.90); Albumin/Globulin Ratio 2.41 (1.60-3.17); Anion Gap 8.7 mmol/L (4.00-12.00); BUN/Creat Ratio 10.5 Ratio (12.00-20.00); Bilirubin, Conjugated 0.2 mg/dL (0.20-0.40); Bilirubin,Unconjugated 0.1 mg/dL; Calcium 9.1 mg/dL (8.7-10.3); Carbon Dioxide 27.3 mmol/L (21.6-31.8); Chol/HDL Ratio 3.15; Globulin 1.7 g/dL (1.6-3.3); LDL Cholesterol,Calculated 58.2 mg/dL (0.0-131.0); Magnesium 2.2 mg/dL (1.5-2.4); Non-African American GFR(CKD) 13.6 (60.0-200.0); Phosphorus 3.6 mg/dL (2.4-5.1); Potassium 4.1 mmol/L (3.5-5.5); Total Bilirubin 0.3 mg/dL (0.2-1.2); Total Protein 5.8 g/dL (6.2-8.2); Uric Acid 6.1 mg/dL (3.7-8.7); VLDL Calculation 29.8 mg/dL (5.00-40.00)
[2020-12-21 16:33] LABS: Hemoglobin A1C 6.8 % (4.0-6.0)
== END | disposition home or self-care (01) ==
LOC: LABWHC1 07:23
PROVIDERS: ATTEND Internal Medicine
DX: E03.9 Hypothyroidism, unspecified (principal); E78.2 Mixed hyperlipidemia; N25.81 Secondary hyperparathyroidism of renal origin; E55.9 Vitamin D deficiency, unspecified; M10.9 Gout, unspecified; I12.9 Hypertensive chronic kidney disease with stage 1 through stage 4 chronic kidney disease, or unspecified chronic kidney disease; N18.4 Chronic kidney disease, stage 4 (severe); N39.0 Urinary tract infection, site not specified; D63.1 Anemia in chronic kidney disease; R80.9 Proteinuria, unspecified; E11.22 Type 2 diabetes mellitus with diabetic chronic kidney disease; F31.60 Bipolar disorder, current episode mixed, unspecified; Z79.899 Other long term (current) drug therapy
CPT/HCPCS: 36415; 80053; 80061; 80164; 80175; 81003; 82248; 82306; 82570; 82728; 83036; 83540; 83550; 83735; 83970; 84100; 84156; 84439; 84443; 84550; 85025

== ENCOUNTER 2020-12-29 06:00 | Emergency (ER) | payer MEDICARE, BC ==
[2020-12-29 06:06] VITALS: TEMP 98.7
[2020-12-29] MEDS ORDERED: DIPH,PERTUS(ACELL)TETVAC-LF 0.5 ML VIAL IM ONE (06:24)
[2020-12-29] MEDS ORDERED: LIDOCAINE 1%-EPI 1:100,000 20 ML VIAL SQ STA (06:24)
--- NOTE | 2020-12-29 06:28 | ED ---
General Adult HPI - General Chief complaint: Head Injury Stated complaint: Fall, head injury Source: patient Mode of arrival: ambulatory Limitations: no limitations - History of Present Illness Initial comments: 75-year-old male with a past medical history of diabetes, hyperlipidemia, presents to the emergency room for a chief of head injury. Patient rolled out of bed and hit his head on the edge of the bedside table. Patient states he caused a laceration to his forehead. He did not lose consciousness. He does not take blood thinners. He does admit to some mild neck stiffness but denies any severe pain. Patient also complains of left great toe pain. states he was unable to get his shoe on because of this. Denies any other injuries. Tetanus is not up-to-date as far as he is aware.Patient has no other complaints at this time including shortness of breath, chest pain, abdominal pain, nausea or vomiting, headache, or visual changes. - Related Data Home Medications Medication Instructions Recorded Confirmed Divalproex [Depakote] 1,500 mg PO HS@1800 01/29/16 01/01/20 Levothyroxine Sodium [Synthroid] 200 mcg PO DAILY@0630 01/29/16 01/01/20 Lovastatin [Mevacor] 40 mg PO HS@1800 01/29/16 01/01/20 Carbidopa-Levodopa 25-100 mg 1 tab PO TID@0700,1200,1800 10/23/17 01/01/20 [Sinemet 25-100 mg] sitaGLIPtin [Januvia] 50 mg PO AC-LUNCH@1200 10/23/17 01/01/20 Glimepiride [Amaryl] 4 mg PO BID@0700,1800 08/20/18 01/01/20 Multivitamins, Thera [Multivitamin 1 tab PO DAILY@0700 08/20/18 01/01/20 (formulary)] lamoTRIgine [LaMICtal] 200 mg PO HS@1800 08/20/18 01/01/20 Escitalopram [Lexapro] 20 mg PO DAILY@0700 11/06/19 01/01/20 Cholecalciferol [Vitamin D3 (25 5,000 unit PO DAILY@0700 01/01/20 01/01/20 Mcg = 1000 Iu)] Previous Rx's Medication Instructions Recorded HYDROcodone/APAP 5-325MG [[place] 5] 1 each PO Q6HR PRN #12 tab 01/01/20 Allergies Allergy/AdvReac Type Severity Reaction Status Date / Time No Known Allergies Allergy Verified 12/29/20 06:06 Review of Systems ROS Statement: Those systems with pertinent positive or pertinent negative responses have been documented in the HPI. ROS Other: All systems not noted in ROS Statement are negative. Past Medical History Past Medical History: Diabetes Mellitus, Hyperlipidemia, Osteoarthritis (OA), Sleep Apnea/CPAP/BIPAP, Thyroid Disorder Additional Past Medical History / Comment(s): heart murmer, History of Any Multi-Drug Resistant Organisms: None Reported Past Surgical History: Orthopedic Surgery, Tonsillectomy Additional Past Surgical History / Comment(s): left knee arthroscopy, left foot bone spur, rt cataract, arthroscopy left shoulder, "bad" rt hip Past Anesthesia/Blood Transfusion Reactions: No Reported Reaction Past Psychological History: Anxiety, Bipolar, Depression Smoking Status: Never smoker Past Alcohol Use History: None Reported Past Drug Use History: None Reported - Past Family History Father Family Medical History: Cancer Mother Additional Family Medical History / Comment(s): Mother at age 74 from heart failure. Brother(s) Additional Family Medical History / Comment(s): Patient has one brother and one sister both have diabetes. Patient's 3 children with no major medical problems. General Exam Limitations: no limitations General appearance: alert, in no apparent distress Head exam: Present: normocephalic. Absent: atraumatic (Patient has a 3 cm laceration noted on the left forehead) Eye exam: Present: normal appearance, PERRL, EOMI. Absent: scleral icterus, co njunctival injection ENT exam: Present: normal exam, mucous membranes moist Neck exam: Present: normal inspection, full ROM. Absent: tenderness Respiratory exam: Present: normal lung sounds bilaterally. Absent: respiratory distress, wheezes Cardiovascular Exam: Present: regular rate, normal rhythm, normal heart sounds GI/Abdominal exam: Present: soft, normal bowel sounds. Absent: distended, tenderness Neurological exam: Present: alert, oriented X3, other (GCS 15) Course Vital Signs 12/29/20 06:02 Temperature 98.7 F Pulse Rate 83 Respiratory 22 Rate Blood Pressure 158/89 O2 Sat by Pulse 97 Oximetry Procedures - Laceration Laceration #1 Consent Obtained: verbal consent Indication: laceration Site: face Size (cm): 4 Description: linear Depth: simple, single layer Anesthetic Used: lidocaine 1%, with epi Anesthesia Technique: local infiltration Amount (mls): 3 Pre-repair: wound explored, irrigated extensively, deep structures intact Type of Sutures: nylon Size of Sutures: 5-0 Number of Sutures: 5 Technique: simple, interrupted Patient Tolerated Procedure: well, no complications Medical Decision Making - Medical Decision Making Laceration was repaired. Tetanus was updated. CT brain shows no acute intracranial hemorrhage or midline shift. No acute fracture or dislocation evident. Suspect underlying DISH. XR shows no acute process of the left toe. At this time discussed care instructions for the laceration including infection prevention. Patient will follow-up with his doctor. He will return for any worsening symptoms. Disposition Clinical Impression: Fall, Laceration, Head injury, Toe pain, left Disposition: HOME SELF-CARE Condition: Good Instructions (If sedation given, give patient instructions): Laceration (ED), Head Injury (ED) Additional Instructions: Please keep the area clean with gentle soap and water. You may apply antibiotic ointment twice daily. Please monitor for signs of infection such as spreading or streaking redness, drainage, or fever and return if these occur. Otherwise return in 5 days for suture removal. Follow-up with your doctor in one to 2 days for a recheck. Is patient prescribed a controlled substance at d/c from ED?: No Referrals: Kimberly Gerardo MD [Primary Care Provider] - 1-2 days Time of Disposition: 07:29
--- NOTE | 2020-12-29 06:56 | CT ---
EXAMINATION TYPE: CT brain cspine wo con DATE OF EXAM: 12/29/2020 COMPARISON: NONE HISTORY: Fall injury with headache and neck pain. CT brain July 24, 2011. MRI brain August 23, 2011. CT DLP: 1504.3 mGycm. Automated Exposure Control for Dose Reduction was Utilized. TECHNIQUE: CT scan of the head and cervical spine are performed without contrast. FINDINGS: There is no acute intracranial hemorrhage or midline shift identified. Fairly moderate ve ntricular and sulcal prominence. Calderon-white matter differentiation maintained. The calvarium is inta ct. The globes are intact and the visualized sinuses are clear. Cervical spine is visualized in its entirety from C1 through upper thoracic levels and demonstrates s atisfactory alignment without evidence of acute fracture or dislocation. Prevertebral soft tissue ap pears within normal limits. The C1-C2 articulation is within normal limits on the coronal images. V ertebral body heights are maintained. Mild to moderate displaced narrowing C5-C6 level. Large anterio r bridging osteophytes noted with ill-defined suspect old osteophyte fracture C4-C5 level. Lung apice s show no pneumothorax. Spinal canal is preserved. Thyroid gland is atrophic or absent. IMPRESSION: 1. There is no acute fracture or dislocation evident in the cervical spine. Suspect underlying DISH. 2. No acute intracranial hemorrhage or midline shift is seen.
--- NOTE | 2020-12-29 07:15 | XR ---
EXAM: XR Left Toes, 2 or More Views CLINICAL HISTORY: ITS.REASON XR Reason: pain TECHNIQUE: Frontal, lateral and oblique views of the toes of the left foot. COMPARISON: No relevant prior studies available. FINDINGS: Bones/joints: Narrowing of the joint space in the first metatarsophalangeal joint. Mild narrowing of the interphalangeal joints. Small sclerotic lesion in the shaft of the fourth proximal phalanx, likely benign. No adjacent cortical irregularity or erosion. Small bony lesions with well corticated margin at the base of the cuboid likely benign and accessory ossicle. Slight deformity in the base of the fifth metatarsal bone likely chronic posttraumatic change No acute fracture. No dislocation. Soft tissues: Unremarkable. No radiopaque foreign body. Other findings: The heel of the foot excluded from the imaging field of view. IMPRESSION: 1. No gross acute bony abnormality. 2. Degenerative changes.
[2020-12-29 07:46] VITALS: BP 151/84; PULSE 75; RESP 18
== END 2020-12-29 07:43 | disposition home or self-care (01) ==
LOC: EC 06:00
DX: S01.81XA Laceration without foreign body of other part of head, initial encounter (principal); M79.675 Pain in left toe(s); Z23 Encounter for immunization; E11.9 Type 2 diabetes mellitus without complications; E78.5 Hyperlipidemia, unspecified; M19.90 Unspecified osteoarthritis, unspecified site; G47.30 Sleep apnea, unspecified; E07.9 Disorder of thyroid, unspecified; F41.9 Anxiety disorder, unspecified; F31.9 Bipolar disorder, unspecified; Z79.890 Hormone replacement therapy; Z79.84 Long term (current) use of oral hypoglycemic drugs; Z79.899 Other long term (current) drug therapy; Z99.89 Dependence on other enabling machines and devices; W22.03XA Walked into furniture, initial encounter; W06.XXXA Fall from bed, initial encounter; Y92.89 Other specified places as the place of occurrence of the external cause
CPT/HCPCS: 12013; 70450; 72125; 90471; 90715; 99284

== ENCOUNTER → 2021-06-26 | Outpatient (CLI) | payer MEDICARE, BC ==
[2021-06-26 15:54] LABS: Appearance,Urine Clear (Clear); Bilirubin,Urine Negative (Negative); Blood,Urine Negative (Negative); Color,Urine Light Yellow; Glucose,Urine (UA) Trace (Negative); Ketones,Urine Negative (Negative); Leukocyte Esterase,Urine Negative (Negative); Nitrite,Urine Negative (Negative); PH, Urine 6.5 (5.0-8.0); Protein,Urine Negative (Negative); Urobilinogen,Urine <2.0 mg/dL (<2.0)
[2021-06-26 16:03] LABS: Creatinine,Urine Random 67.3 mg/dL; Protein/Creatinine Ratio,Urine 0.342
[2021-06-26 22:44] LABS: Basophils # (A) 0.02 X 10*3/uL (0.00-0.10); Basophils % (A) 0.4 %; Eosinophils # (A) 0.04 X 10*3/uL (0.04-0.35); Eosinophils % (A) 0.8 %; HCT 36.3 % (39.6-50.0); HGB 11.7 g/dL (13.0-17.0); Lymphocytes # (A) 1.88 X 10*3/uL (0.90-5.00); Lymphocytes % (A) 36.6 %; MCH 30.3 pg (27.0-32.0); MCHC 32.2 g/dL (32.0-37.0); Mean Platelet Volume 9.3 fL (9.5-12.2); Monocytes # (A) 0.33 X 10*3/uL (0.20-1.00); Monocytes % (A) 6.4 %; Neutrophils # (A) 2.83 X 10*3/uL (1.80-7.70); Neutrophils % (A) 55.2 %; Platelet Count 176 X 10*3/uL (140-440); RBC 3.86 X 10*6/uL (4.40-5.60); RDW 13.3 % (11.5-14.5); WBC 5.13 X 10*3/uL (4.50-10.00)
[2021-06-27 03:44] LABS: % Iron Saturation 25.94 (15.00-50.00); African American GFR (CKD) 16.8 (60.0-200.0); Albumin 3.8 g/dL (3.80-4.90); Anion Gap 9.9 mmol/L (4.00-12.00); BUN/Creat Ratio 14.21 Ratio (12.00-20.00); Calcium 9.2 mg/dL (8.7-10.3); Carbon Dioxide 26.1 mmol/L (21.6-31.8); Magnesium 2.2 mg/dL (1.5-2.4); Non-African American GFR(CKD) 14.5 (60.0-200.0); Phosphorus 3.4 mg/dL (2.4-5.1); Potassium 4.6 mmol/L (3.5-5.5); Uric Acid 6.8 mg/dL (3.7-8.7)
== END | disposition home or self-care (01) ==
LOC: LABWHC1 15:12
PROVIDERS: ATTEND Nurse Practitioner Family
DX: N18.4 Chronic kidney disease, stage 4 (severe) (principal); M10.9 Gout, unspecified; D64.9 Anemia, unspecified; R80.9 Proteinuria, unspecified; R31.29 Other microscopic hematuria
CPT/HCPCS: 36415; 80048; 81003; 82040; 82570; 82728; 83540; 83550; 83735; 84100; 84156; 84550; 85025

== ENCOUNTER → 2021-07-20 | Outpatient (CLI) | payer MEDICARE, BC ==
[2021-07-21 05:11] LABS: African American GFR (CKD) 16.7 (60.0-200.0); Albumin 4.1 g/dL (3.80-4.90); Anion Gap 11.1 mmol/L (4.00-12.00); BUN/Creat Ratio 17.11 Ratio (12.00-20.00); Calcium 9.6 mg/dL (8.7-10.3); Carbon Dioxide 23.9 mmol/L (21.6-31.8); Non-African American GFR(CKD) 14.4 (60.0-200.0); Potassium 4.9 mmol/L (3.5-5.5)
== END | disposition home or self-care (01) ==
LOC: LABWHC1 11:47
PROVIDERS: ATTEND Nurse Practitioner Family
DX: N18.4 Chronic kidney disease, stage 4 (severe) (principal)
CPT/HCPCS: 36415; 80048; 82040

== ENCOUNTER → 2021-08-02 | Outpatient (CLI) | payer MEDICARE, BC ==
[2021-08-02 16:22] LABS: HCT 36.8 % (39.6-50.0); HGB 11.5 g/dL (13.0-17.0); MCH 29.5 pg (27.0-32.0); MCHC 31.3 g/dL (32.0-37.0); MCV 94.4 fL (80.0-97.0); Mean Platelet Volume 9.4 fL (9.5-12.2); Platelet Count 203 X 10*3/uL (140-440); RDW 14.1 % (11.5-14.5); WBC 5.34 X 10*3/uL (4.50-10.00)
== END | disposition home or self-care (01) ==
LOC: LABWHC1 08:09
PROVIDERS: ATTEND Psychiatry & Neurology Psychiatry
DX: F31.60 Bipolar disorder, current episode mixed, unspecified (principal); Z79.899 Other long term (current) drug therapy
CPT/HCPCS: 36415; 80164; 80175; 85027

== ENCOUNTER → 2021-10-04 | Outpatient (CLI) | payer MEDICARE, BC ==
[2021-10-04 11:18] LABS: Appearance,Urine Clear (Clear); Bilirubin,Urine Negative (Negative); Blood,Urine Negative (Negative); Color,Urine Light Yellow; Glucose,Urine (UA) Negative (Negative); Ketones,Urine Negative (Negative); Leukocyte Esterase,Urine Negative (Negative); Nitrite,Urine Negative (Negative); Protein,Urine Negative (Negative); Urobilinogen,Urine <2.0 mg/dL (<2.0)
[2021-10-04 11:37] LABS: Creatinine,Urine Random 57.3 mg/dL; Protein/Creatinine Ratio,Urine 0.401
[2021-10-04 15:03] LABS: Basophils # (A) 0.04 X 10*3/uL (0.00-0.10); Basophils % (A) 0.9 %; Eosinophils # (A) 0.06 X 10*3/uL (0.04-0.35); Eosinophils % (A) 1.4 %; HGB 11.8 g/dL (13.0-17.0); Lymphocytes # (A) 1.87 X 10*3/uL (0.90-5.00); Lymphocytes % (A) 42.4 %; MCH 30.9 pg (27.0-32.0); MCHC 32.8 g/dL (32.0-37.0); MCV 94.2 fL (80.0-97.0); Mean Platelet Volume 9.4 fL (9.5-12.2); Monocytes # (A) 0.39 X 10*3/uL (0.20-1.00); Monocytes % (A) 8.8 %; Neutrophils # (A) 2.01 X 10*3/uL (1.80-7.70); Neutrophils % (A) 45.6 %; Platelet Count 181 X 10*3/uL (140-440); RBC 3.82 X 10*6/uL (4.40-5.60); RDW 13.2 % (11.5-14.5); WBC 4.41 X 10*3/uL (4.50-10.00)
[2021-10-04 16:35] LABS: % Iron Saturation 19.51 (15.00-50.00); ALT 11 U/L (10-49); AST 18 U/L (14-35); African American GFR (CKD) 15.9 (60.0-200.0); Albumin 3.9 g/dL (3.8-4.9); Albumin/Globulin Ratio 1.73 (1.60-3.17); Alkaline Phosphatase 45 U/L (41-126); BUN/Creat Ratio 13.97 Ratio (12.00-20.00); Blood Urea Nitrogen 55.2 mg/dL (9.0-27.0); Calcium 9.6 mg/dL (8.7-10.3); Carbon Dioxide 23.7 mmol/L (20.0-27.5); Chloride 106 mmol/L (96-109); Chol/HDL Ratio 4.16 Ratio; Globulin 2.3 g/dL (1.6-3.3); Glucose 127 mg/dL (70-110); Iron 78 ug/dL (65-175); LDL Cholesterol,Calculated 66.5 mg/dL (0.0-131.0); Magnesium 2.6 mg/dL (1.5-2.4); Non-African American GFR(CKD) 13.7 (60.0-200.0); Phosphorus 4.1 mg/dL (2.4-5.1); Potassium 5.1 mmol/L (3.5-5.5); Sodium 142 mmol/L (135-145); Total Iron Binding Capacity 400 ug/dL (228-460); Total Protein 6.2 g/dL (6.2-8.2); Uric Acid 6.3 mg/dL (3.7-8.7)
[2021-10-04 21:16] LABS: Valproic Acid (Depakene) 48.3 ug/mL (50.0-100.0)
== END | disposition home or self-care (01) ==
LOC: LABWHC1 09:08
PROVIDERS: ATTEND Nurse Practitioner Family
DX: I12.9 Hypertensive chronic kidney disease with stage 1 through stage 4 chronic kidney disease, or unspecified chronic kidney disease (principal); E78.2 Mixed hyperlipidemia; E11.22 Type 2 diabetes mellitus with diabetic chronic kidney disease; F31.12 Bipolar disorder, current episode manic without psychotic features, moderate; M10.9 Gout, unspecified; D64.9 Anemia, unspecified; N25.81 Secondary hyperparathyroidism of renal origin; N18.4 Chronic kidney disease, stage 4 (severe); R31.29 Other microscopic hematuria; R50.9 Fever, unspecified
CPT/HCPCS: 36415; 80053; 80061; 80164; 81003; 82570; 82728; 83036; 83540; 83550; 83735; 83970; 84100; 84156; 84439; 84443; 84550; 85025

== ENCOUNTER → 2022-01-17 | Outpatient (CLI) | payer MEDICARE, BC ==
[2022-01-17 10:06] LABS: Appearance,Urine Clear (Clear); Bilirubin,Urine Negative (Negative); Blood,Urine Negative (Negative); Color,Urine Light Yellow; Glucose,Urine (UA) Negative (Negative); Ketones,Urine Negative (Negative); Leukocyte Esterase,Urine Negative (Negative); Nitrite,Urine Negative (Negative); Protein,Urine Negative (Negative); Urobilinogen,Urine <2.0 mg/dL (<2.0)
[2022-01-17 10:44] LABS: Creatinine,Urine Random 60.4 mg/dL; Protein/Creatinine Ratio,Urine 0.315
[2022-01-17 18:59] LABS: Basophils # (A) 0.05 X 10*3/uL (0.00-0.10); Basophils % (A) 0.8 %; Eosinophils % (A) 1.7 %; HCT 37.2 % (39.6-50.0); HGB 11.6 g/dL (13.0-17.0); Immature Grans, Automated 0.7 %; Lymphocytes # (A) 2.76 X 10*3/uL (0.90-5.00); Lymphocytes % (A) 46.6 %; MCH 30.2 pg (27.0-32.0); MCHC 31.2 g/dL (32.0-37.0); MCV 96.9 fL (80.0-97.0); Mean Platelet Volume 9.5 fL (9.5-12.2); Monocytes # (A) 0.47 X 10*3/uL (0.20-1.00); Monocytes % (A) 7.9 %; NRBC Per 100 WBC 0 /100 WBCS (0.0-0.0); Neutrophils % (A) 42.3 %; Platelet Count 186 X 10*3/uL (140-440); RBC 3.84 X 10*6/uL (4.40-5.60); RDW 13.6 % (11.5-14.5); WBC 5.92 X 10*3/uL (4.50-10.00)
[2022-01-18 00:29] LABS: % Iron Saturation 19.65 (15.00-50.00); African American GFR (CKD) 15.7 (60.0-200.0); Anion Gap 15.5 mmol/L (10.00-18.00); BUN/Creat Ratio 14.9 Ratio (12.00-20.00); Blood Urea Nitrogen 59.6 mg/dL (9.0-27.0); Calcium 10.3 mg/dL (8.7-10.3); Carbon Dioxide 20.3 mmol/L (20.0-27.5); Magnesium 2.5 mg/dL (1.5-2.4); Non-African American GFR(CKD) 13.5 (60.0-200.0); Phosphorus 4.8 mg/dL (2.4-5.1); Potassium 4.5 mmol/L (3.5-5.5); Uric Acid 5.6 mg/dL (3.7-8.7)
[2022-01-18 01:00] LABS: Albumin 3.9 g/dL (3.8-4.9)
== END | disposition home or self-care (01) ==
LOC: LABWHC1 08:54
PROVIDERS: ATTEND Internal Medicine Nephrology
DX: N25.81 Secondary hyperparathyroidism of renal origin (principal); E55.9 Vitamin D deficiency, unspecified; N18.5 Chronic kidney disease, stage 5; N39.0 Urinary tract infection, site not specified; D64.9 Anemia, unspecified; R80.9 Proteinuria, unspecified
CPT/HCPCS: 36415; 80048; 81003; 82040; 82306; 82570; 82728; 83540; 83550; 83735; 83970; 84100; 84156; 84550; 85025

== ENCOUNTER → 2022-02-13 | Outpatient (CLI) | payer MEDICARE, BC ==
[2022-02-13 23:59] LABS: Hepatitis A Antibody IgM Nonreactive (Nonreactive); Hepatitis B Core IgM Nonreactive (Nonreactive); Hepatitis B Surface Antigen Nonreactive (Nonreactive); Hepatitis C IgG Antibody Nonreactive (Nonreactive)
== END | disposition home or self-care (01) ==
LOC: LABWHC1 13:44
PROVIDERS: ATTEND Nurse Practitioner Family
DX: N18.5 Chronic kidney disease, stage 5 (principal)
CPT/HCPCS: 36415; 80074

== ENCOUNTER 2022-02-20 12:00 | Day surgery (SDC) | payer MEDICARE, BC ==
[2022-02-19 13:00] VITALS: BMI 27.8
[~2022-02-20 12:00] MED LIST changes: +ACETAMINOPHEN TAB 500 MG TAB PO PRN; +DEXAMETHASONE SOD PHOSPHATE 4 MG/ML 1 ML VIAL IV ONE; +HEPARIN SODIUM,PORCINE/PF 5,000 UNIT/0.5 ML SYRINGE SQ PRN; +HYDROmorphone 0.5 MG/0.5 ML SYRINGE IVP PRN; +LIDOCAINE 1% (10MG/ML) FOR IV START INTRADERMA PRN; -LIDOCAINE 1% 20 ML VIAL (10MG/ML) FOR IV START INTRADERMA PRN; +ONDANSETRON 4 MG/2 ML VIAL IVP ONE
[2022-02-20] MEDS ORDERED: SODIUM CHLORIDE 0.9% 1,000 ML IV ONE (12:23)
[2022-02-20 12:44] LABS: Glucose,Whole Blood 72 mg/dL (75-99)
[2022-02-20] MEDS ORDERED: DEXTROSE 50% SYRINGE 50 ML IVP ONE (12:44)
[2022-02-20 12:54] LABS: Basophils % (A) 1 %; Eosinophils # (A) 0.1 k/uL (0-0.7); Eosinophils % (A) 1 %; HCT 37.3 % (39.0-53.0); HGB 12.2 gm/dL (13.0-17.5); Lymphocytes # (A) 1.8 k/uL (1.0-4.8); Lymphocytes % (A) 40 %; MCHC 32.7 g/dL (31.0-37.0); MCV 94.8 fL (80.0-100.0); Monocytes # (A) 0.3 k/uL (0-1.0); Monocytes % (A) 7 %; Neutrophils # (A) 2.3 k/uL (1.3-7.7); Neutrophils % (A) 50 %; Platelet Count 202 k/uL (150-450); RBC 3.93 m/uL (4.30-5.90); RDW 13.6 % (11.5-15.5); WBC 4.5 k/uL (3.8-10.6)
[2022-02-20 12:55] LABS: Glucose,Whole Blood 142 mg/dL (75-99)
[2022-02-20] MEDS ORDERED: BUPIVACAINE (PF) 0.25% 30 ML VIAL SQ ONE ×2 (13:11→13:38)
[2022-02-20] MEDS ORDERED: MINERAL OIL 1 APPLIC/ML OIL MISCELLANE ONE ×2 (13:11→13:47)
[2022-02-20] MEDS ORDERED: PROPOFOL 10 MG/ML 20 ML VIAL IV ONE (13:15)
[2022-02-20] MEDS ORDERED: LIDOCAINE 1% INJ 10MG/ML (20 ML MDV) ONE (13:15)
[2022-02-20] MEDS ORDERED: fentaNYL (PF) 50 MCG/ML 2 ML AMP ONE (13:15)
--- NOTE | 2022-02-20 13:26 | P.GSHP ---
History of Present Illness H&P Date: 02/20/22 Chief Complaint: Renal failure 76-year-old male presents for peritoneal dialysis catheter placement. Patient was last seen in the office one year ago. Patient has had progressive weakness and some generalized edema as a result of his advancing kidney failure. No abdominal surgeries to speak of. No known hernias. Past Medical History Past Medical History: Diabetes Mellitus, Hyperlipidemia, Osteoarthritis (OA), Renal Disease, Sleep Apnea/CPAP/BIPAP, Thyroid Disorder Additional Past Medical History / Comment(s): Heart murmur, Parkinson's, "I sleep a lot", CPAP use. History of Any Multi-Drug Resistant Organisms: None Reported Past Surgical History: Orthopedic Surgery, Tonsillectomy Additional Past Surgical History / Comment(s): Left knee arthroscopy, left foot bone spur, right cataract, left shoulder arthroscopy. Past Anesthesia/Blood Transfusion Reactions: No Reported Reaction Past Psychological History: Anxiety, Bipolar, Depression Smoking Status: Former smoker Past Alcohol Use History: None Reported Additional Past Alcohol Use History / Comment(s): Quit smoking 25-30 yrs ago, smoked for 20 yrs, 1 PPD. Past Drug Use History: None Reported Additional Drug Use History / Comment(s): CBC oil occasionally. Aware no use 24 hrs prior to procedure. - Past Family History Father Family Medical History: Cancer Mother Additional Family Medical History / Comment(s): Mother at age 74 from heart failure. Brother(s) Additional Family Medical History / Comment(s): Patient has one brother and one sister both have diabetes. Patient's 3 children with no major medical problems. Medications and Allergies Home Medications Medication Instructions Recorded Confirmed Type Divalproex [Depakote] 1,500 mg PO HS 01/29/16 02/19/22 History Levothyroxine Sodium [Synthroid] 200 mcg PO QAM 01/29/16 02/19/22 History Lovastatin [Mevacor] 40 mg PO HS 01/29/16 02/19/22 History Carbidopa-Levodopa 25-100 mg 1 tab PO TID 10/23/17 02/19/22 History [Sinemet 25-100 mg] Glimepiride [Amaryl] 4 mg PO BID@1200,1800 08/20/18 02/19/22 History Escitalopram [Lexapro] 20 mg PO QAM 11/06/19 02/19/22 History HYDROcodone/APAP 5-325MG [Norden 5] 1 each PO Q6HR PRN #12 tab 01/01/20 02/19/22 Rx Cyanocobalamin (Vitamin B-12) 1,000 mcg PO QAM 02/19/22 02/19/22 History [Vitamin B-12] Fenofibrate 54 mg PO HS 02/19/22 02/19/22 History Folic Acid 0.8 mg PO DAILY 02/19/22 02/19/22 History Insulin Glargine,Hum.rec.anlog 16 units SQ HS 02/19/22 02/19/22 History [Toujeo Solostar] Tramadol (Unknown Dose) 1 tab PO BID PRN 02/19/22 02/19/22 History lamoTRIgine [LaMICtal] 150 mg PO HS 02/19/22 02/19/22 History sitaGLIPtin [Januvia] 25 mg PO AC-LUNCH 02/19/22 02/19/22 History Allergies Allergy/AdvReac Type Severity Reaction Status Date / Time No Known Allergies Allergy Verified 02/20/22 12:36 Surgical - Exam Vital Signs Temp Pulse Resp BP Pulse Ox 97.3 F L 68 18 158/73 97 02/20/22 12:30 02/20/22 12:30 02/20/22 12:30 02/20/22 12:30 02/20/22 12:30 Physical exam: General: Well-developed, well-nourished HEENT: Normocephalic, sclerae nonicteric Abdomen: Nontender, nondistended Extremities: No edema Neuro: Alert and oriented Results - Labs 02/20/22 12:51 Abnormal Lab Results - Last 24 Hours (Table) 02/20/22 02/20/22 02/20/22 Range/Units 12:40 12:51 12:53 RBC 3.93 L (4.30-5.90) m/uL Hgb 12.2 L (13.0-17.5) gm/dL Hct 37.3 L (39.0-53.0) % POC Glucose (mg/dL) 72 L 142 H (75-99) mg/dL Assessment and Plan (1) Renal failure Narrative/Plan: 76-year-old male with renal failure. We'll proceed with peritoneal dialysis catheter placement at this time. Risks of bleeding, infection, catheter malfunction, leak, abscess, peritonitis, hernia formation, poor function reviewed. He understands and wishes to proceed. Current Visit: Yes Status: Acute Code(s): N19 - UNSPECIFIED KIDNEY FAILURE SNOMED Code(s): 15108876
[2022-02-20] MEDS ORDERED: HYDROcodone/APAP 5-325MG 1 EACH TAB PO PRN (14:04)
[2022-02-20] MEDS ORDERED: NALOXONE 0.4 MG/ML 1 ML VIAL IV PRN (14:04)
[2022-02-20 14:15] VITALS: TEMP 97
--- NOTE | 2022-02-20 14:21 | P.OP ---
Date of Procedure: 02/20/22 Procedure(s) Performed: PREOPERATIVE DIAGNOSIS: Renal failure POSTOPERATIVE DIAGNOSIS: Same PROCEDURE: Peritoneal dialysis catheter insertion SURGEON: Ajay EBL: Minimal ANESTHESIA: General COMPLICATIONS: None OPERATIVE PROCEDURE: The patient was placed in the operative table in the supine position. The abdomen was prepped and draped in usual sterile fashion. A small vertical incision was made in the left periumbilical location. Dissection down through the subcutaneous tissues took place using electrocautery. The anterior rectus was divided vertically using the scalpel. The rectus was bluntly. The posterior rectus was visualized. An 0 Vicryl pursestring was placed. A small opening in the posterior rectus fascia and peritoneum took place using a Metzenbaum scissors. There were no adhesions to the suture that was placed. The pigtail catheter was advanced into the pelvis over a stylette. No resistance was met. The inner cuff was secured to the fascia using the 0 Vicryl pursestring that was placed. The catheter was tunneled to an exit site in the left lateral lower quadrant. The catheter was connected to the 1 L bag of saline and approximated 800 mL of saline was easily introduced into the peritoneal cavity. The fluid was then allowed to evacuate. The majority of the fluid was returned. The anterior rectus fascia was then reapproximated using a running 0 Vicryl stitch. The subcutaneous tissues reprepped using 3-0 Vicryl sutures and the skin using 4-0 Monocryl sutures. The outpatient dialysis adapter was applied to the end of the catheter. Sterile dressings were then applied after skin glue was placed over the incision. DISPOSITION: Stable to recovery room
[2022-02-20 15:14] VITALS: BP 145/80; PULSE 63; RESP 20
== END 2022-02-20 15:39 ==
LOC: OR 12:00
PROVIDERS: ATTEND Surgery
DX: N19 Unspecified kidney failure (principal); E11.36 Type 2 diabetes mellitus with diabetic cataract; E78.5 Hyperlipidemia, unspecified; G20 Parkinson's disease; G47.30 Sleep apnea, unspecified; M19.90 Unspecified osteoarthritis, unspecified site; Z79.84 Long term (current) use of oral hypoglycemic drugs; Z82.49 Family history of ischemic heart disease and other diseases of the circulatory system; Z83.3 Family history of diabetes mellitus; Z87.891 Personal history of nicotine dependence
CPT/HCPCS: 49421; 85025; C1752; J1100; J0690; J2405; J2001; J3010; J2704; J1644

== ENCOUNTER → 2022-05-18 | Outpatient (CLI) | payer MEDICARE, BC | END | disposition home or self-care (01) | LOC: LABWHC1 13:55 | PROVIDERS: ATTEND Psychiatry & Neurology Psychiatry | DX: I12.9 Hypertensive chronic kidney disease with stage 1 through stage 4 chronic kidney disease, or unspecified chronic kidney disease (principal); E11.22 Type 2 diabetes mellitus with diabetic chronic kidney disease; E03.9 Hypothyroidism, unspecified; F31.60 Bipolar disorder, current episode mixed, unspecified; N18.4 Chronic kidney disease, stage 4 (severe) | CPT/HCPCS: 36415; 80164; 80175 ==

== ENCOUNTER 2022-09-03 13:48 | Day surgery (SDC) | payer MEDICARE, BC ==
[2022-08-30 09:33] VITALS: BMI 27.1
[~2022-09-03 13:48] MED LIST changes: -DEXAMETHASONE SOD PHOSPHATE 4 MG/ML 1 ML VIAL IV ONE; -HYDROmorphone 0.5 MG/0.5 ML SYRINGE IVP PRN; -LACTATED RINGERS 1,000 ML IV SCH; -LIDOCAINE 1% (10MG/ML) FOR IV START INTRADERMA PRN; -ONDANSETRON 4 MG/2 ML VIAL IVP ONE
[2022-09-03] MEDS ORDERED: ONDANSETRON 4 MG/2 ML VIAL ONE (14:19)
[2022-09-03 14:41] VITALS: TEMP 97.2
[2022-09-03 14:47] LABS: Glucose,Whole Blood 106 mg/dL (70-110)
[2022-09-03] MEDS ORDERED: SODIUM CHLORIDE 0.9% 1,000 ML IV ONE (14:48)
[2022-09-03] MEDS ORDERED: DEXAMETHASONE SOD PHOSPHATE 4 MG/ML 1 ML VIAL IVP ONE (14:49)
[2022-09-03 14:52] LABS: Basophils % (A) 1 %; Eosinophils % (A) 1 %; HCT 30.2 % (39.0-53.0); Lymphocytes # (A) 2.1 k/uL (1.0-4.8); Lymphocytes % (A) 41 %; MCH 31.1 pg (25.0-35.0); MCHC 33.2 g/dL (31.0-37.0); MCV 93.7 fL (80.0-100.0); Mean Platelet Volume 7.9; Monocytes # (A) 0.2 k/uL (0-1.0); Monocytes % (A) 4 %; Neutrophils # (A) 2.6 k/uL (1.3-7.7); Neutrophils % (A) 51 %; Platelet Count 196 k/uL (150-450); RBC 3.23 m/uL (4.30-5.90); WBC 5.1 k/uL (3.8-10.6)
[2022-09-03 15:05] LABS: Calcium 9.3 mg/dL (8.4-10.2); Potassium 4.4 mmol/L (3.5-5.1)
--- NOTE | 2022-09-03 15:31 | P.GSHP ---
History of Present Illness H&P Date: 09/03/22 Chief Complaint: Renal failure 77-year-old male known to our service. He underwent dialysis catheter placement earlier this year. Unfortunately the patient during the training. Decided that that was too burdensome for him. He then switched to hemodialysis. Here today for catheter removal. Past Medical History Past Medical History: Diabetes Mellitus, Hearing Disorder / Deafness, Hyperlipidemia, Osteoarthritis (OA), Renal Disease, Sleep Apnea/CPAP/BIPAP, Thyroid Disorder Additional Past Medical History / Comment(s): Heart murmer, Parkinson's, CPAP use, hard of hearing. History of Any Multi-Drug Resistant Organisms: None Reported Past Surgical History: Orthopedic Surgery, Tonsillectomy Additional Past Surgical History / Comment(s): Bilateral knee surgery, left foot bone spur, right cataract removed, left shoulder arthroscopy, peritoneal dialysis catheter placed. Past Anesthesia/Blood Transfusion Reactions: No Reported Reaction Past Psychological History: Anxiety, Bipolar, Depression Smoking Status: Former smoker Past Alcohol Use History: None Reported Additional Past Alcohol Use History / Comment(s): Quit smoking 25-30 yrs ago, smoked for 20 yrs, 1 PPD. Past Drug Use History: None Reported Additional Drug Use History / Comment(s): CBD Oil occasionally to back. Aware no use 24 hrs prior to procedure. - Past Family History Father Family Medical History: Cancer Mother Additional Family Medical History / Comment(s): Mother at age 74 from heart failure. Brother(s) Additional Family Medical History / Comment(s): Patient has one brother and one sister both have diabetes. Patient's 3 children with no major medical problems. Medications and Allergies Home Medications Medication Instructions Recorded Confirmed Type Levothyroxine Sodium [Synthroid] 200 mcg PO QAM 01/29/16 08/30/22 History Lovastatin [Mevacor] 40 mg PO HS 01/29/16 08/30/22 History Escitalopram [Lexapro] 20 mg PO QAM 11/06/19 08/30/22 History Fenofibrate 54 mg PO HS 02/19/22 08/30/22 History Insulin Lispro [humaLOG Kwikpen] 0 unit SQ TID PRN 08/30/22 08/30/22 History glipiZIDE 20 mg PO BID 08/30/22 08/30/22 History Allergies Allergy/AdvReac Type Severity Reaction Status Date / Time No Known Allergies Allergy Verified 09/03/22 14:32 Surgical - Exam Vital Signs Temp Pulse Resp BP Pulse Ox 97.2 F L 72 16 136/67 95 09/03/22 14:40 09/03/22 14:40 09/03/22 14:40 09/03/22 14:40 09/03/22 14:40 Physical exam: General: Well-developed, well-nourished HEENT: Normocephalic, sclerae nonicteric Abdomen: Nontender, nondistended, peritoneal dialysis catheter in place Extremities: No edema Neuro: Alert and oriented Results - Labs 09/03/22 14:48 09/03/22 14:48 Abnormal Lab Results - Last 24 Hours (Table) 09/03/22 09/03/22 Range/Units 14:48 14:48 RBC 3.23 L (4.30-5.90) m/uL Hgb 10.0 L (13.0-17.5) gm/dL Hct 30.2 L (39.0-53.0) % BUN 40 H (9-20) mg/dL Creatinine 4.78 H (0.66-1.25) mg/dL Glucose 108 H (74-99) mg/dL Diabetes panel 09/03/22 Range/Units 14:48 Sodium 137 (137-145) mmol/L Potassium 4.4 (3.5-5.1) mmol/L Chloride 100 (98-107) mmol/L Carbon Dioxide 27 (22-30) mmol/L BUN 40 H (9-20) mg/dL Creatinine 4.78 H (0.66-1.25) mg/dL Glucose 108 H (74-99) mg/dL Calcium 9.3 (8.4-10.2) mg/dL Calcium panel 09/03/22 Range/Units 14:48 Calcium 9.3 (8.4-10.2) mg/dL Pituitary panel 09/03/22 Range/Units 14:48 Sodium 137 (137-145) mmol/L Potassium 4.4 (3.5-5.1) mmol/L Chloride 100 (98-107) mmol/L Carbon Dioxide 27 (22-30) mmol/L BUN 40 H (9-20) mg/dL Creatinine 4.78 H (0.66-1.25) mg/dL Glucose 108 H (74-99) mg/dL Calcium 9.3 (8.4-10.2) mg/dL Adrenal panel 09/03/22 Range/Units 14:48 Sodium 137 (137-145) mmol/L Potassium 4.4 (3.5-5.1) mmol/L Chloride 100 (98-107) mmol/L Carbon Dioxide 27 (22-30) mmol/L BUN 40 H (9-20) mg/dL Creatinine 4.78 H (0.66-1.25) mg/dL Glucose 108 H (74-99) mg/dL Calcium 9.3 (8.4-10.2) mg/dL Assessment and Plan (1) Renal failure Narrative/Plan: 77-year-old male with renal failure. We'll proceed with Port-A-Cath removal as time. Current Visit: No Status: Acute Code(s): N19 - UNSPECIFIED KIDNEY FAILURE SNOMED Code(s): 94961715
[2022-09-03] MEDS ORDERED: fentaNYL (PF) 50 MCG/ML 2 ML AMP ONE (15:46)
[2022-09-03] MEDS ORDERED: PROPOFOL 10 MG/ML 20 ML VIAL IV ONE (15:46)
[2022-09-03] MEDS ORDERED: KETAMINE 10 MG/ML 20 ML VIAL ONE (15:46)
[2022-09-03] MEDS ORDERED: LIDOCAINE 2% INJ 20 MG/ML (2 ML VIAL) ONE (15:46)
[2022-09-03] MEDS ORDERED: MIDAZOLAM 2 MG/2 ML VIAL ONE (15:46)
[2022-09-03] MEDS ORDERED: BUPIVACAINE (PF) 0.25% 30 ML VIAL SQ ONE ×3 (15:48→16:17)
[2022-09-03] MEDS ORDERED: traMADol 50 MG TAB PO PRN (16:27)
[2022-09-03] MEDS ORDERED: NALOXONE 0.4 MG/ML 1 ML VIAL IV PRN (16:27)
--- NOTE | 2022-09-03 16:29 | P.OP ---
Date of Procedure: 09/03/22 Procedure(s) Performed: PREOPERATIVE DIAGNOSIS: Renal failure POSTOPERATIVE DIAGNOSIS: Same PROCEDURE: PD cath removal SURGEON: Ajay EBL: 2 mL ANESTHESIA: Sedation and local COMPLICATIONS: None OPERATIVE PROCEDURE: Patient was placed in the supine position. The abdomen was prepped and draped in usual sterile fashion. The previous paramedian incision was re-incised after localizing the skin. The subcutaneous tissues were divided using electrocautery. Blunt dissection around the cuff that was present at the fascia and peritoneum took place. The cuff was fully mobilized. The catheter was removed from the perineal cavity. The outer cuff was dissected from the subcutaneous fascia using electrocautery. The catheter was cut on the other side of that cuff and the catheter was removed. The fascial defect was closed using a single [id number] 0 Vicryl stitch. The subcutaneous tissues were c losed using 3-0 Vicryl sutures and the skin using 4-0 Monocryl sutures. Skin glue and sterile dressings were applied. DISPOSITION: Stable to recovery room
[2022-09-03 16:43] LABS: Glucose,Whole Blood 92 mg/dL (70-110)
[2022-09-03 17:29] VITALS: RESP 20
[2022-09-03 17:38] VITALS: BP 140/70; PULSE 60
== END 2022-09-03 17:39 | disposition home or self-care (01) ==
LOC: OR 13:48
PROVIDERS: ATTEND Surgery
DX: N19 Unspecified kidney failure (principal); E78.5 Hyperlipidemia, unspecified; G47.30 Sleep apnea, unspecified; E07.9 Disorder of thyroid, unspecified; G20 Parkinson's disease; E11.36 Type 2 diabetes mellitus with diabetic cataract; Z90.89 Acquired absence of other organs; F31.9 Bipolar disorder, unspecified; Z86.59 Personal history of other mental and behavioral disorders; Z82.49 Family history of ischemic heart disease and other diseases of the circulatory system; Z83.3 Family history of diabetes mellitus; Z79.899 Other long term (current) drug therapy; Z79.84 Long term (current) use of oral hypoglycemic drugs
CPT/HCPCS: 80048; 85025; 49422; J2250; J1100; J0690; J2405; J3010; J2704; J1644; J2001

== ENCOUNTER 2023-01-30 04:34 | Inpatient (IN) | payer MEDICARE, BC ==
--- NOTE | 2023-01-30 05:45 | ED ---
General Adult HPI - General Chief complaint: Fall Stated complaint: Weakness Time Seen by Provider: 01/30/23 04:36 Source: patient, EMS, RN notes reviewed, old records reviewed Mode of arrival: EMS - History of Present Illness Initial comments: 77-year-old male presents for evaluation of fall. Patient fallen yesterday with minor head injury and fallen again today while trying to get into bed. Paramedics had been contacted and the patient was brought to the emergency department for evaluation. He has had some weakness. He states that he did not injure anything with the fall. No loss conscious. No anticoagulation. Paramedics had noted a skin tear to the right upper extremity. - Related Data Home Medications Medication Instructions Recorded Confirmed Levothyroxine Sodium [Synthroid] 200 mcg PO QAM 01/29/16 08/30/22 Lovastatin [Mevacor] 40 mg PO HS 01/29/16 08/30/22 Escitalopram [Lexapro] 20 mg PO QAM 11/06/19 08/30/22 Fenofibrate 54 mg PO HS 02/19/22 08/30/22 Insulin Lispro [humaLOG Kwikpen] 0 unit SQ TID PRN 08/30/22 08/30/22 glipiZIDE 20 mg PO BID 08/30/22 08/30/22 Allergies Allergy/AdvReac Type Severity Reaction Status Date / Time No Known Allergies Allergy Verified 09/03/22 14:32 Review of Systems ROS Statement: Those systems with pertinent positive or pertinent negative responses have been documented in the HPI. ROS Other: All systems not noted in ROS Statement are negative. Past Medical History Past Medical History: Diabetes Mellitus, Hearing Disorder / Deafness, Hyperlipidemia, Osteoarthritis (OA), Renal Disease, Sleep Apnea/CPAP/BIPAP, Thyroid Disorder Additional Past Medical History / Comment(s): Heart murmer, Parkinson's, CPAP use, hard of hearing. History of Any Multi-Drug Resistant Organisms: None Reported Past Surgical History: Orthopedic Surgery, Tonsillectomy Additional Past Surgical History / Comment(s): Bilateral knee surgery, left foot bone spur, right cataract removed, left shoulder arthroscopy, peritoneal dialysis catheter placed. Past Anesthesia/Blood Transfusion Reactions: No Reported Reaction Past Psychological History: Anxiety, Bipolar, Depression Smoking Status: Former smoker Past Alcohol Use History: None Reported Past Drug Use History: None Reported - Past Family History Father Family Medical History: Cancer Mother Additional Family Medical History / Comment(s): Mother at age 74 from heart failure. Brother(s) Additional Family Medical History / Comment(s): Patient has one brother and one sister both have diabetes. Patient's 3 children with no major medical problems. General Exam General appearance: alert, in no apparent distress Head exam: Present: atraumatic, normocephalic Eye exam: Present: normal appearance, PERRL ENT exam: Present: mucous membranes moist Neck exam: Present: normal inspection. Absent: tenderness, meningismus Respiratory exam: Present: normal lung sounds bilaterally. Absent: respiratory distress, wheezes Cardiovascular Exam: Present: regular rate, normal rhythm GI/Abdominal exam: Present: soft. Absent: distended, tenderness, guarding Neurological exam: Present: alert, oriented X3, CN II-XII intact. Absent: motor sensory deficit Psychiatric exam: Present: normal affect, normal mood Skin exam: Present: warm, dry Course Vital Signs 01/30/23 04:37 Temperature 97.2 F L Pulse Rate 68 Respiratory 16 Rate Blood Pressure 126/72 O2 Sat by Pulse 96 Oximetry EKG Findings - EKG Comments: EKG Findings:: EKG: Sinus rhythm rate of 63, NM interval 195, QRS duration 99, QTC 418, no ST segment elevation Medical Decision Making - Medical Decision Making Was pt. sent in by a medical professional or institution ([facility], [facility], urgent care, hospital, or long-term...) When possible be specific @ -[No] Did you speak to anyone other than the patient for history (EMS, parent, family, police, friend...)? What history was obtained from this source @ -EMS Did you review nursing and triage notes (agree or disagree)? Why? @ -[I reviewed and agree with nursing and triage notes] Were old charts reviewed (outside hosp., previous admission, EMS record, old EKG, old radiological studies, urgent care reports/EKG's, long-term records)? Report findings @ -[No old charts were reviewed] Differential Diagnosis (chest pain, altered mental status, abdominal pain women, abdominal pain men, vaginal bleeding, weakness, fever, dyspnea, syncope, headache, dizziness, GI bleed, back pain, seizure, CVA, palpatations, mental health, musculoskeletal)? @ -Differential Weakness: Hypoglycemia, shock, sepsis, hyponatremia, anemia, infection, HI, ETOH, adverse medicine reaction, overdose, stroke, this is not meant to be an all-inclusive list. EKG interpreted by me (3pts min.). @ -[As above] X-rays interpreted by me (1pt min.). @ -[None done] CT interpreted by me (1pt min.). @ -CT performed, showing volume loss and chronic changes without acute findings U/S interpreted by me (1pt. min.). @ -[None done] What testing was considered but not performed or refused? (CT, X-rays, U/S, labs)? Why? @ -[None] What meds were considered but not given or refused? Why? @ -[None] Did you discuss the management of the patient with other professionals (professionals i.e. , PA, [employer], lab, RT, psych nurse, director of social services, marriage therapist, teacher, chief sustainability officer, case mgr)? Give summary @ -Case discussed with Dr. Gerardo, will admit Was smoking cessation discussed for >3mins.? @ -[No] Was critical care preformed (if so, how long)? @ -[No] Were there social determinants of health that impacted care today? How? (Homelessness, low income, unemployed, alcoholism, drug addiction, transportation, low edu. Level, literacy, decrease access to med. care, half-way, rehab)? @ -[No] Was there de-escalation of care discussed even if they declined (Discuss DNR or withdrawal of care, Hospice)? DNR status @ -[No] What co-morbidities impacted this encounter? (DM, HTN, Smoking, COPD, CAD, Cancer, CVA, ARF, Chemo, Hep., AIDS, mental health diagnosis, sleep apnea, morbid obesity)? @ -[None] Was patient admitted / discharged? Hospital course, mention meds given and route, prescriptions, significant lab abnormalities, going to OR and other pertinent info. @ -77-year-old male with increased weakness, multiple falls. History of Parkinson's. Patient has nonfocal exam but does have generalized weakness. Vital signs are stable. He has chronic stable lab abnormalities. He missed hemodialysis yesterday due to weakness. Patient will be admitted with nephrology on consult. Undiagnosed new problem with uncertain prognosis? @ -[No] Drug Therapy requiring intensive monitoring for toxicity (Heparin, Nitro, Insulin, Cardizem)? @ -[No] Were any procedures done? @ -[No] Diagnosis/symptom? @ -End-stage renal disease, weakness, Parkinson's Acute, or Chronic, or Acute on Chronic? @ -Acute on chronic Uncomplicated (without systemic symptoms) or Complicated (systemic symptoms)? @ -Complicated Side effects of treatment? @ -[No] Exacerbation, Progression, or Severe Exacerbation? @ -[No] Poses a threat to life or bodily function? How? (Chest pain, USA, HI, pneumonia, PE, COPD, DKA, ARF, appy, cholecystitis, CVA, Diverticulitis, Homicidal, Suicidal, threat to staff... and all critical care pts) @ -[Yes, progressive weakness, multiple falls, risk of traumatic injury] - Lab Data Result diagrams: 01/30/23 05:46 01/30/23 05:46 Lab Results 01/30/23 01/30/23 Range/Units 05:46 05:46 WBC 3.8 (3.8-10.6) k/uL RBC 3.55 L (4.30-5.90) m/uL Hgb 11.5 L (13.0-17.5) gm/dL Hct 33.8 L (39.0-53.0) % MCV 95.3 (80.0-100.0) fL MCH 32.4 (25.0-35.0) pg MCHC 34.0 (31.0-37.0) g/dL RDW 15.1 (11.5-15.5) % Plt Count 160 (150-450) k/uL MPV 7.3 Neutrophils % 45 % Lymphocytes % 43 % Monocytes % 8 % Eosinophils % 1 % Basophils % 0 % Neutrophils # 1.7 (1.3-7.7) k/uL Lymphocytes # 1.7 (1.0-4.8) k/uL Monocytes # 0.3 (0-1.0) k/uL Eosinophils # 0.0 (0-0.7) k/uL Basophils # 0.0 (0-0.2) k/uL Sodium 133 L (137-145) mmol/L Potassium 5.3 H (3.5-5.1) mmol/L Chloride 99 (98-107) mmol/L Carbon Dioxide 26 (22-30) mmol/L Anion Gap 8 mmol/L BUN 70 H (9-20) mg/dL Creatinine 5.22 H (0.66-1.25) mg/dL Est GFR (CKD-EPI)AfAm 11 (>60 ml/min/1.73 sqM) Est GFR (CKD-EPI)NonAf 10 (>60 ml/min/1.73 sqM) Glucose 103 H (74-99) mg/dL Calcium 8.6 (8.4-10.2) mg/dL Total Bilirubin 0.6 (0.2-1.3) mg/dL AST 30 (17-59) U/L ALT 7 (4-49) U/L Alkaline Phosphatase 46 (38-126) U/L Total Protein 5.4 L (6.3-8.2) g/dL Albumin 2.9 L (3.5-5.0) g/dL Disposition Clinical Impression: Unable to ambulate, ESRD (end stage renal disease) Disposition: ADMITTED IP TO THIS [facility] Condition: Stable Is patient prescribed a controlled substance at d/c from ED?: No Referrals: Kimberly Gerardo MD [Primary Care Provider] - 1-2 days Time of Disposition: 06:38
--- NOTE | 2023-01-30 05:49 | CT ---
EXAMINATION TYPE: CT brain wo con DATE OF EXAM: 01/30/2023 COMPARISON: 12/29/2020 HISTORY: WEAKNESS, FALL CT DLP: 1239.6 mGycm Automated exposure control for dose reduction was used. Images obtained of the brain with no contrast. There is cerebral cortical atrophy. There is no mass effect nor midline shift. No sign of intracrania l hemorrhage. The calvarium is intact. There is normal aeration of the mastoid sinuses. IMPRESSION: Cerebral atrophy. No acute intracranial abnormality. No change.
[2023-01-30 06:01] LABS: Basophils % (A) 0 %; Eosinophils % (A) 1 %; HCT 33.8 % (39.0-53.0); HGB 11.5 gm/dL (13.0-17.5); Lymphocytes # (A) 1.7 k/uL (1.0-4.8); Lymphocytes % (A) 43 %; MCH 32.4 pg (25.0-35.0); MCV 95.3 fL (80.0-100.0); Mean Platelet Volume 7.3; Monocytes # (A) 0.3 k/uL (0-1.0); Monocytes % (A) 8 %; Neutrophils # (A) 1.7 k/uL (1.3-7.7); Neutrophils % (A) 45 %; Platelet Count 160 k/uL (150-450); RBC 3.55 m/uL (4.30-5.90); RDW 15.1 % (11.5-15.5); WBC 3.8 k/uL (3.8-10.6)
[2023-01-30 06:11] LABS: Albumin 2.9 g/dL (3.5-5.0); Calcium 8.6 mg/dL (8.4-10.2); Potassium 5.3 mmol/L (3.5-5.1); Total Bilirubin 0.6 mg/dL (0.2-1.3); Total Protein 5.4 g/dL (6.3-8.2)
[2023-01-30] MEDS ORDERED: ACETAMINOPHEN TAB 325 MG TAB PO PRN (06:39)
[2023-01-30] MEDS ORDERED: NALOXONE 0.4 MG/ML 1 ML VIAL IV PRN (06:39)
[2023-01-30 08:15] LABS: Glucose,Whole Blood 80 mg/dL (70-110)
[2023-01-30 11:24] LABS: Glucose,Whole Blood 97 mg/dL (70-110)
--- NOTE | 2023-01-30 11:27 | P.NPCON ---
History of Present Illness - Reason for Consult end stage renal disease - History of Present Illness Patient is a 77-year-old male with end-stage renal disease on hemodialysis on a Saturday schedule. Patient was admitted to the hospital with history of fall 2. Patient's family reports that he fell on 01/28/2023. It appears that he tripped with a walker. Patient was able to get up at that time. Patient did not go for dialysis yesterday on 01/29/2023 as he was feeling weak. 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 Blood pressure has not been low Patient denies any fevers chills nausea vomiting abdominal pain diarrhea chest pain or cough. Mentation appears intact. No significant numbness or weakness reported. Patient does have significant urine output. Potassium was 5.3 and BUN was 70 with creatinine 5.2. Review of Systems As per HPI Past Medical History Past Medical History: Diabetes Mellitus, Hearing Disorder / Deafness, H yperlipidemia, Osteoarthritis (OA), Renal Disease, Sleep Apnea/CPAP/BIPAP, Thyroid Disorder Additional Past Medical History / Comment(s): Heart murmer, Parkinson's, CPAP use, hard of hearing. History of Any Multi-Drug Resistant Organisms: None Reported Past Surgical History: Orthopedic Surgery, Tonsillectomy Additional Past Surgical History / Comment(s): Bilateral knee surgery, left foot bone spur, right cataract removed, left shoulder arthroscopy, peritoneal dialysis catheter placed. Past Anesthesia/Blood Transfusion Reactions: No Reported Reaction Past Psychological History: Anxiety, Bipolar, Depression Smoking Status: Former smoker Past Alcohol Use History: None Reported Past Drug Use History: None Reported - Past Family History Father Family Medical History: Cancer Mother Additional Family Medical History / Comment(s): Mother at age 74 from heart failure. Brother(s) Additional Family Medical History / Comment(s): Patient has one brother and one sister both have diabetes. Patient's 3 children with no major medical problems. Medications and Allergies Home Medications Medication Instructions Recorded Confirmed Type Levothyroxine Sodium [Synthroid] 200 mcg PO DAILY 01/29/16 01/30/23 History Lovastatin [Mevacor] 40 mg PO HS 01/29/16 01/30/23 History Escitalopram [Lexapro] 20 mg PO QAM 11/06/19 01/30/23 History Fenofibrate 54 mg PO HS 02/19/22 01/30/23 History Insulin Lispro [humaLOG Kwikpen] See Protocol SQ AC-TID PRN 08/30/22 01/30/23 History Carbidopa/Levodopa 1 tab PO QID 01/30/23 01/30/23 History [Carbidopa-Levodopa 25-100 Tab] Cyanocobalamin (Vitamin B-12) 1,000 mcg PO DAILY 01/30/23 01/30/23 History [Vitamin B-12] Divalproex ER [Depakote ER] 1,500 mg PO DAILY 01/30/23 01/30/23 History Ferrous Sulfate [Feosol] 325 mg PO DAILY 01/30/23 01/30/23 History Folic Acid 0.4 mg PO DAILY 01/30/23 01/30/23 History Ketoconazole 2% Cream [Nizoral 2%] 1 applic TOPICAL DAILY 01/30/23 01/30/23 History Levothyroxine Sodium [Synthroid] 50 mcg PO MOTUWETHFRSA 01/30/23 01/30/23 History Levothyroxine Sodium [Synthroid] 75 mcg PO YUN 01/30/23 01/30/23 History Lidocaine-Prilocaine Cream [Emla 1 applic TOPICAL DIRECTED 01/30/23 01/30/23 History Cream 2.5%/2.5%] lamoTRIgine [LaMICtal] 150 mg PO DAILY 01/30/23 01/30/23 History Allergies Allergy/AdvReac Type Severity Reaction Status Date / Time No Known Allergies Allergy Verified 09/03/22 14:32 Physical Exam Vitals: Vital Signs Temp Pulse Pulse Resp BP BP Pulse Ox 01/30/23 10:56 97.5 F L 59 L 18 154/68 98 01/30/23 07:50 97.2 F L 64 16 144/73 99 01/30/23 07:36 64 16 144/73 99 01/30/23 04:37 97.2 F L 68 16 126/72 96 Intake and Output 01/29/23 01/30/23 01/30/23 22:59 06:59 14:59 Other: Weight 81.647 kg On examination patient is awake, comfortable, no acute distress. 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 End-stage renal disease on hemodialysis on a Saturday schedule. Patient missed his treatment yesterday we will dialyze him today and then again tomorrow 2. History of falls, etiology unclear. No evidence of hypotension. CT of the brain was negative. Patient does have Parkinson's disease. 3. CK D mineral bone disorder 4. Mild hyperkalemia associated with end-stage renal disease Plan: Hemodialysis today and then again in a.m. Consider neurology consult
[2023-01-30 16:26] LABS: Glucose,Whole Blood 130 mg/dL (70-110)
[2023-01-30] MEDS ORDERED: LIDOCAINE-PRILOCAINE 2.5-2.5% CREAM 5 GM TUBE TOPICAL PRN (16:45)
[2023-01-30] MEDS: INSULIN ASPART (NovoLOG) 100 UNIT/ML VIAL SQ SCH ×2 (17:30→21:05)
[2023-01-30] MEDS: lamoTRIgine 100 MG TAB PO SCH (17:45)
[2023-01-30] MEDS: FOLIC ACID 1 MG TAB PO SCH (17:45)
[2023-01-30] MEDS: CARBIDOPA-LEVODOPA 25-100 MG 1 EACH TAB PO SCH ×2 (17:45→21:05)
[2023-01-30] MEDS: DIVALPROEX ER 500 MG TAB.ER.24H PO SCH (17:45)
[2023-01-30] MEDS: ESCITALOPRAM 20 MG TAB PO SCH (17:45)
[2023-01-30] MEDS: FERROUS SULFATE 325 MG TAB PO SCH (17:45)
[2023-01-30 18:38] LABS: Valproic Acid (Depakene) 48.9 ug/mL
[2023-01-30 20:26] LABS: Glucose,Whole Blood 259 mg/dL (70-110)
--- NOTE | 2023-01-30 20:51 | US ---
EXAMINATION TYPE: US carotid duplex BILAT DATE OF EXAM: 01/30/2023 COMPARISON: NONE CLINICAL HISTORY: dizziness. dizziness TECHNIQUE: Carotid duplex ultrasound examination. Indirect Doppler criteria was utilized. FINDINGS: EXAM MEASUREMENTS: RIGHT: Peak Systolic Velocity (PSV) cm/sec ----- Right CCA: 92.9 ----- Right ICA: 110.4 ----- Right ECA: 85.7 ICA/CCA ratio: 1.2 RIGHT: End Diastole cm/sec ----- Right CCA: 15.9 ----- Right ICA: 26.0 ----- Right ECA: 10.0 LEFT: Peak Systolic Velocity (PSV) cm/sec ----- Left CCA: 72.5 ----- Left ICA: 87.1 ----- Left ECA: 100.0 ICA/CCA ratio: 1.2 LEFT: End Diastole cm/sec ----- Left CCA: 17.6 ----- Left ICA: 20.8 ----- Left ECA: 9.5 VERTEBRALS (direction of flow): Right Vertebral: Antegrade Left Vertebral: Antegrade Rhythm: Normal FINANCIAL SERVICES ASSISTANT NOTES: Mild amount of plaque visualized in bilateral bulbs IMPRESSION: There is antegrade flow in the vertebral arteries. The images and measurements suggest less than 25% stenosis in both internal carotid arteries. Criteria for Assigning % of Stenosis / Diameter reduction (Estimation based on the indirect measurements of the internal carotid artery velocities (ICA PSV). 1. Normal (no stenosis)=ICA PSV < 125 cm/s: ratio < 2.0: ICA EDV<40 cm/s. 2. Less than 50% stenosis=ICA PSV < 125 cm/s: ratio < 2.0: ICA EDV<40 cm/s. 3. 50 to 69% stenosis=ICA PSV of 125 to 230 cm/s: ration 2.0 ? 4.0: ICA EDV 40-100 cm/s. 4. Greater than 70% stenosis to near occlusion= ICA PSV > 230 cm/s: ratio > 4.0: ICA EDV > 100 cm/s. 5. Near occlusion= ICA PSV velocities may be low or undetectable: variable ratio and ICA EDV. 6. Total occlusion=unable to detect flow.
[2023-01-30] MEDS: FENOFIBRATE 54 MG TAB PO SCH (21:05)
[2023-01-30] MEDS: ATORVASTATIN 10 MG TAB PO SCH (21:05)
[2023-01-30] MEDS: HEPARIN SODIUM,PORCINE/PF 5,000 UNIT/0.5 ML SYRINGE SQ SCH (21:05)
[2023-01-31 06:15] LABS: Glucose,Whole Blood 102 mg/dL (70-110)
[2023-01-31] MEDS: INSULIN ASPART (NovoLOG) 100 UNIT/ML VIAL SQ SCH ×4 (06:18→21:07)
[2023-01-31] MEDS: LEVOTHYROXINE 100 MCG TAB PO SCH (06:25)
[2023-01-31] MEDS: LEVOTHYROXINE 50 MCG TAB PO SCH (06:25)
[2023-01-31] MEDS: DIVALPROEX ER 500 MG TAB.ER.24H PO SCH (09:44)
[2023-01-31] MEDS: FERROUS SULFATE 325 MG TAB PO SCH (09:45)
[2023-01-31] MEDS: FOLIC ACID 1 MG TAB PO SCH (09:45)
[2023-01-31] MEDS: CARBIDOPA-LEVODOPA 25-100 MG 1 EACH TAB PO SCH ×4 (09:45→21:07)
[2023-01-31] MEDS: lamoTRIgine 100 MG TAB PO SCH (09:46)
[2023-01-31] MEDS: ESCITALOPRAM 20 MG TAB PO SCH (09:47)
[2023-01-31] MEDS: CYANOCOBALAMIN 500 MCG TAB PO SCH (09:50)
[2023-01-31] MEDS: HEPARIN SODIUM,PORCINE/PF 5,000 UNIT/0.5 ML SYRINGE SQ SCH ×2 (09:50→21:06)
[2023-01-31 09:58] LABS: African American GFR (CKD) 16.6 (60.0-200.0); Albumin 3.2 g/dL (3.8-4.9); Albumin/Globulin Ratio 1.65 (1.60-3.17); Anion Gap 12.2 mmol/L (10.00-18.00); BUN/Creat Ratio 8.39 Ratio (12.00-20.00); Blood Urea Nitrogen 31.8 mg/dL (9.0-27.0); Carbon Dioxide 25.4 mmol/L (20.0-27.5); Globulin 1.9 g/dL (1.6-3.3); Non-African American GFR(CKD) 14.3 (60.0-200.0); Potassium 4.6 mmol/L (3.5-5.5); Total Bilirubin 0.3 mg/dL (0.30-1.20); Total Protein 5.1 g/dL (6.2-8.2)
[2023-01-31 10:40] LABS: Basophils # (A) 0.03 X 10*3/uL (0.00-0.10); Basophils % (A) 0.7 %; Eosinophils # (A) 0 X 10*3/uL (0.04-0.35); Eosinophils % (A) 0 %; HCT 34.2 % (39.6-50.0); HGB 10.9 g/dL (13.0-17.0); Immature Grans, Automated 0.7 %; Lymphocytes # (A) 1.35 X 10*3/uL (0.90-5.00); Lymphocytes % (A) 32.3 %; MCH 31.1 pg (27.0-32.0); MCHC 31.9 g/dL (32.0-37.0); MCV 97.4 fL (80.0-97.0); Monocytes # (A) 0.34 X 10*3/uL (0.20-1.00); Monocytes % (A) 8.1 %; NRBC Per 100 WBC 0 /100 WBCS (0.0-0.0); Neutrophils # (A) 2.43 X 10*3/uL (1.80-7.70); Neutrophils % (A) 58.2 %; Platelet Count 131 X 10*3/uL (140-440); RBC 3.51 X 10*6/uL (4.40-5.60); RDW 15.4 % (11.5-14.5); WBC 4.18 X 10*3/uL (4.50-10.00)
[2023-01-31] MEDS: CLOTRIMAZOLE 1% CREAM 30 GM TUBE TOPICAL SCH (10:49)
[2023-01-31 11:45] LABS: Glucose,Whole Blood 152 mg/dL (70-110)
--- NOTE | 2023-01-31 11:52 | P.CNNES ---
History of Present Illness Consult date: 01/31/23 Requesting physician: Kimberly Gerardo Reason for Consult: fall/parkinson's History of Present Illness: This is a 77-year-old gentleman with history of Parkinson's disease, DM, ESR on dialysis, Sleep apnea, hypothyroidism, bipolar who presented to the emergency department for falls. History is limited but according to patient he stated that the recently he has fallen 3 times but denies any loss of conscious. He feels his balance has been off. He stated that he walks with a walker. He has a history of Parkinson but he could not tell me how long the symptoms has been going on for and he is on carbidopa levodopa 34028 tablet 4 times a day and he felt was started about 2-3 month ago but does not feel there is any benefit to the medication. He does not see any improvement after taking the medication. He stated that his primary has referred him to a neurologist for his Parkinson's disease. According to the patient and he was diagnosed with Parkinson's by his primary care physician. Patient denies any loss of consciousness with these falls. He had a small head injury but again no loss of conscious. Denies of any focal weakness. It seems that he missed dialysis yesterday because of his weakness. I personally called the primary attending and he stated that the patient had the Parkinson's disease for years for now and the has been having generalized weakness since dialysis for the past 1 year. For the Parkinson's the primary is treating him with Sinemet and notifying the daughter to go up on his medicine. Patient is on Depakote 1500mg daily and Lamictal 150mg daily for bipolar. He was on [place] in past for bipolar. Some other workup during his hospital visit consisted of: Sodium is 133, potassium 5.3, creatinine is 5. due to BUN 70, initial serum glucoses 103, AST and ALT is within normal limits. Vitamin B-12 is 1367 folate is more than 20. Valproic level is 48.9. Carotid duplex was reported as there is antegrade flow in the vertebral arteries. The images and measurements suggest less than 25% stenosis of both internal carotid arteries. Detailed brain is reported as cerebral atrophy. No acute intracranial abnormality. No change. I personally reviewed the CT and there is no acute or subacute ischemia, no significant large and encephalomalacia or any bleed noted. I feel the patient has generalized atrophy and the ventricles do not seem more enlarged compared to atrophy. Review of Systems Review of system: The 12 point system was reviewed and apparent positive and negative per HPI. Past Medical History Past Medical History: Diabetes Mellitus, Hearing Disorder / Deafness, Hyperl ipidemia, Osteoarthritis (OA), Renal Disease, Sleep Apnea/CPAP/BIPAP, Thyroid Disorder Additional Past Medical History / Comment(s): Heart murmer, Parkinson's, CPAP use, hard of hearing. History of Any Multi-Drug Resistant Organisms: None Reported Past Surgical History: Orthopedic Surgery, Tonsillectomy Additional Past Surgical History / Comment(s): Bilateral knee surgery, left foot bone spur, right cataract removed, left shoulder arthroscopy, peritoneal dialysis catheter placed. Past Anesthesia/Blood Transfusion Reactions: No Reported Reaction Past Psychological History: Anxiety, Bipolar, Depression Smoking Status: Former smoker Past Alcohol Use History: None Reported Past Drug Use History: None Reported - Past Family History Father Family Medical History: Cancer Mother Additional Family Medical History / Comment(s): Mother at age 74 from heart failure. Brother(s) Additional Family Medical History / Comment(s): Patient has one brother and one sister both have diabetes. Patient's 3 children with no major medical problems. Medications and Allergies Home Medications Medication Instructions Recorded Confirmed Type Levothyroxine Sodium [Synthroid] 200 mcg PO DAILY 01/29/16 01/30/23 History Lovastatin [Mevacor] 40 mg PO HS 01/29/16 01/30/23 History Escitalopram [Lexapro] 20 mg PO QAM 11/06/19 01/30/23 History Fenofibrate 54 mg PO HS 02/19/22 01/30/23 History Insulin Lispro [humaLOG Kwikpen] See Protocol SQ AC-TID PRN 08/30/22 01/30/23 History Carbidopa/Levodopa 1 tab PO QID 01/30/23 01/30/23 History [Carbidopa-Levodopa 25-100 Tab] Cyanocobalamin (Vitamin B-12) 1,000 mcg PO DAILY 01/30/23 01/30/23 History [Vitamin B-12] Divalproex ER [Depakote ER] 1,500 mg PO DAILY 01/30/23 01/30/23 History Ferrous Sulfate [Feosol] 325 mg PO DAILY 01/30/23 01/30/23 History Folic Acid 0.4 mg PO DAILY 01/30/23 01/30/23 History Ketoconazole 2% Cream [Nizoral 2%] 1 applic TOPICAL DAILY 01/30/23 01/30/23 History Levothyroxine Sodium [Synthroid] 50 mcg PO MOTUWETHFRSA 01/30/23 01/30/23 History Levothyroxine Sodium [Synthroid] 75 mcg PO YUN 01/30/23 01/30/23 History Lidocaine-Prilocaine Cream [Emla 1 applic TOPICAL DIRECTED 01/30/23 01/30/23 History Cream 2.5%/2.5%] lamoTRIgine [LaMICtal] 150 mg PO DAILY 01/30/23 01/30/23 History Allergies Allergy/AdvReac Type Severity Reaction Status Date / Time No Known Allergies Allergy Verified 09/03/22 14:32 Physical Examination - Vital Signs Vital Signs: Vital Signs Temp Pulse Resp BP Pulse Ox 01/31/23 08:22 97.3 F L 61 17 168/70 98 01/31/23 07:25 65 16 01/31/23 02:08 97.4 F L 65 16 112/58 99 01/30/23 20:18 18 01/30/23 19:31 98.3 F 55 L 17 117/70 97 01/30/23 16:22 98.4 F 66 18 137/74 01/30/23 13:52 97.4 F L 60 19 125/59 98 Intake and Output 01/30/23 01/31/23 01/31/23 22:59 06:59 14:59 Intake Total 400 Output Total 1400 0 Balance -1000 0 Intake: Hemodialysis 400 Output: Urine 0 Hemodialysis 1400 Other: Voiding Method Toilet Toilet # Voids 6 GENERAL: The patient is lying in bed and is not in acute distress. CHEST: The heart rate is regular rate rhythm. LUNG: Clear to auscultation bilaterally no wheezing noted throughout. Not labored breathing. ABDOMEN/GI: Bowel sounds present in all 4 quadrants. No tenderness to palpation throughout. NEUROLOGICAL: Higher mental function: The patient is awake, alert, oriented to self, place and time. Patient is following commands. No aphasia and no neglect. Cranial nerves: The pupils are round, equal and reactive to light. Visual salgado are full to confrontation throughout. Extraocular movement is intact no nystagmus is noted. Facial sensation is normal to touch throughout. The facial strength is normal throughout. Has head and mouth tremor. Hearing is moder ately decreased bilaterally to hand rub. Tongue is midline and moved [id number] without any difficulty. No dysarthria is noted. Shoulder shrug is normal bilaterally. Has resting tremor of the right upper extremity. Also has tremor with extension of bilateral arms. Motor: Gait is with slight assistance but has stooped postures and has shuffling gait. The strength is limited but lifting all extremities above gravity without focality. Normal tone and bulk. Cerebellum: Normal finger to nose bilaterally. Sensation: Sensation is normal to touch throughout. Reflexes (right/left): 1+ throughout. Plantars are downgoing bilaterally. Results - Laboratory Findings CBC and BMP: 01/31/23 07:15 01/31/23 07:15 Abnormal Lab Findings: Abnormal Labs 01/30/23 01/30/23 01/30/23 05:46 05:46 16:24 WBC RBC 3.55 L Hgb 11.5 L Hct 33.8 L MCV MCHC RDW Plt Count MPV Eosinophils # Sodium 133 L Potassium 5.3 H BUN 70 H Creatinine 5.22 H Est GFR (CKD-EPI)AfAm Est GFR (CKD-EPI)NonAf BUN/Creatinine Ratio Glucose 103 H POC Glucose (mg/dL) 130 H ALT Total Protein 5.4 L Albumin 2.9 L Vitamin B12 01/30/23 01/30/23 01/31/23 17:35 20:23 07:15 WBC 4.18 L RBC 3.51 L Hgb 10.9 L Hct 34.2 L MCV 97.4 H MCHC 31.9 L RDW 15.4 H Plt Count 131 L MPV 9.0 L Eosinophils # 0 L Sodium Potassium BUN Creatinine Est GFR (CKD-EPI)AfAm Est GFR (CKD-EPI)NonAf BUN/Creatinine Ratio Glucose POC Glucose (mg/dL) 259 H ALT Total Protein Albumin Vitamin B12 1367.0 H 01/31/23 07:15 WBC RBC Hgb Hct MCV MCHC RDW Plt Count MPV Eosinophils # Sodium Potassium BUN 31.8 H Creatinine 3.8 H Est GFR (CKD-EPI)AfAm 16.6 L Est GFR (CKD-EPI)NonAf 14.3 L BUN/Creatinine Ratio 8.39 L Glucose POC Glucose (mg/dL) ALT 7 L Total Protein 5.1 L Albumin 3.2 L Vitamin B12 Assessment and Plan Assessment: This is a 77-year-old gentleman with history of Parkinson's disease, bipolar, end-stage renal disease on dialysis who presented because of falls and generalized weakness. Falls due to his Parkinson's disease. As well as I feel the patient has medication that would increase his tremors such as high dose of Depakote (for Bipolar) Parkinson's disease for years and the patient does not feel there is any benefit to the medication he is currently on End-stage renal disease on dialysis Generalized weakness and primary feels for past one year since ESRD on dialysis Hypothyroidism Bipolar Hypothyroidism Polypharmacy Plan: I went down on Depakote from 2834-6375 mg ER daily and can consider going down to 1000mg in a few days to assess no worsening in bipolar and improvement in tremor. Can consider going up on Lamicta He is currently on Sinemet 25-100mg 1 tab QID (home dose). I will not make changes to assess if any improvement with Depakote. If not, then will consider going to 25-250 dose 1 tab tid. I ordered MRI Brain w/o Patient had a recent thyroid lab testing in January 2023 and the TSH was elevated. He is on Synthroid and we'll defer the management to the primary team PT and OT are consulted We'll defer the rest of medical management to primary team Recommend the patient follow up with a neurologist outpatient within 1-2 weeks The plan was discussed with the patient's primary attending. Thank you for the consultation Time with Patient: Greater than 30
--- NOTE | 2023-01-31 12:27 | P.PN ---
Subjective Patient is seen for follow-up for end-stage renal disease. He is maintained on a Saturday schedule. Patient was admitted to the hospital with history of falls. No hypotension noted. Patient was dialyzed yesterday with 1.4 L of UF. He is scheduled for hemodialysis again today as it is his regular scheduled day. Neurology has been consulted. Objective - Vital Signs Vital signs: Vital Signs Temp 97.3 F L 01/31/23 08:22 Pulse 61 01/31/23 08:22 Resp 17 01/31/23 08:22 BP 168/70 01/31/23 08:22 Pulse Ox 98 01/31/23 08:22 FiO2 Intake & Output 01/30/23 01/31/23 01/31/23 18:59 06:59 18:59 Intake Total 400 Output Total 1400 0 Balance -1000 0 Weight 81.647 kg Intake: Hemodialysis 400 Output: Urine 0 Hemodialysis 1400 Other: Voiding Method Toilet Toilet # Voids 6 6 - Exam On examination patient is awake, comfortable, no acute distress. 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 - Labs CBC & Chem 7: 01/31/23 07:15 01/31/23 07:15 Labs: Abnormal Lab Results - Last 24 Hours (Table) 01/30/23 01/30/23 01/30/23 Range/Units 16:24 17:35 20:23 WBC (4.50-10.00) X 10*3/uL RBC (4.40-5.60) X 10*6/uL Hgb (13.0-17.0) g/dL Hct (39.6-50.0) % MCV (80.0-97.0) fL MCHC (32.0-37.0) g/dL RDW (11.5-14.5) % Plt Count (140-440) X 10*3/uL MPV (9.5-12.2) fL Eosinophils # (0.04-0.35) X 10*3/uL BUN (9.0-27.0) mg/dL Creatinine (0.6-1.5) mg/dL Est GFR (CKD-EPI)AfAm (60.0-200.0) Est GFR (CKD-EPI)NonAf (60.0-200.0) BUN/Creatinine Ratio (12.00-20.00) Ratio POC Glucose (mg/dL) 130 H 259 H (70-110) mg/dL ALT (10-49) U/L Total Protein (6.2-8.2) g/dL Albumin (3.8-4.9) g/dL Vitamin B12 1367.0 H (200.0-944.0) pg/mL 01/31/23 01/31/23 01/31/23 Range/Units 07:15 07:15 11:44 WBC 4.18 L (4.50-10.00) X 10*3/uL RBC 3.51 L (4.40-5.60) X 10*6/uL Hgb 10.9 L (13.0-17.0) g/dL Hct 34.2 L (39.6-50.0) % MCV 97.4 H (80.0-97.0) fL MCHC 31.9 L (32.0-37.0) g/dL RDW 15.4 H (11.5-14.5) % Plt Count 131 L (140-440) X 10*3/uL MPV 9.0 L (9.5-12.2) fL Eosinophils # 0 L (0.04-0.35) X 10*3/uL BUN 31.8 H (9.0-27.0) mg/dL Creatinine 3.8 H (0.6-1.5) mg/dL Est GFR (CKD-EPI)AfAm 16.6 L (60.0-200.0) Est GFR (CKD-EPI)NonAf 14.3 L (60.0-200.0) BUN/Creatinine Ratio 8.39 L (12.00-20.00) Ratio POC Glucose (mg/dL) 152 H (70-110) mg/dL ALT 7 L (10-49) U/L Total Protein 5.1 L (6.2-8.2) g/dL Albumin 3.2 L (3.8-4.9) g/dL Vitamin B12 (200.0-944.0) pg/mL Assessment and Plan Assessment: 1. End-stage renal disease on hemodialysis on a Saturday schedule. Status post dialysis yesterday as patient had missed his outpatient treatment the day before. 2. History of falls, etiology unclear. No evidence of hypotension. CT of the brain was negative. Patient does have Parkinson's disease. 3. CK D mineral bone disorder 4. Mild hyperkalemia associated with end-stage renal disease Plan: Repeat hemodialysis today with no significant ultrafiltration. Encourage increased oral intake Follow-up on workup from neurology
[2023-01-31 16:29] LABS: Glucose,Whole Blood 99 mg/dL (70-110)
[2023-01-31 20:49] LABS: Glucose,Whole Blood 172 mg/dL (70-110)
[2023-01-31] MEDS: ATORVASTATIN 10 MG TAB PO SCH (21:07)
[2023-01-31] MEDS: FENOFIBRATE 54 MG TAB PO SCH (21:08)
[2023-02-01 06:53] LABS: Glucose,Whole Blood 89 mg/dL (70-110)
[2023-02-01] MEDS: LEVOTHYROXINE 100 MCG TAB PO SCH (07:08)
[2023-02-01] MEDS: LEVOTHYROXINE 50 MCG TAB PO SCH (07:08)
[2023-02-01] MEDS: INSULIN ASPART (NovoLOG) 100 UNIT/ML VIAL SQ SCH ×4 (07:14→20:48)
[2023-02-01] MEDS: CARBIDOPA-LEVODOPA 25-100 MG 1 EACH TAB PO SCH ×4 (09:31→20:48)
[2023-02-01] MEDS: FERROUS SULFATE 325 MG TAB PO SCH (09:31)
[2023-02-01] MEDS: lamoTRIgine 100 MG TAB PO SCH (09:31)
[2023-02-01] MEDS: FOLIC ACID 1 MG TAB PO SCH (09:31)
[2023-02-01] MEDS: DIVALPROEX ER 250 MG TAB.ER.24H PO SCH (09:32)
[2023-02-01] MEDS: CYANOCOBALAMIN 500 MCG TAB PO SCH (09:32)
[2023-02-01] MEDS: ESCITALOPRAM 20 MG TAB PO SCH (09:32)
[2023-02-01] MEDS: CLOTRIMAZOLE 1% CREAM 30 GM TUBE TOPICAL SCH (09:33)
[2023-02-01] MEDS: HEPARIN SODIUM,PORCINE/PF 5,000 UNIT/0.5 ML SYRINGE SQ SCH ×2 (09:33→20:48)
--- NOTE | 2023-02-01 12:15 | P.PN ---
Subjective Progress Note Date: 02/01/23 The patient is seen at bedside and feels about the same. Objective - Vital Signs Vital signs: Vital Signs Temp 98.4 F 02/01/23 07:27 Pulse 83 02/01/23 07:27 Resp 16 02/01/23 09:30 BP 134/73 02/01/23 07:27 Pulse Ox 97 02/01/23 07:27 FiO2 Intake & Output 01/31/23 02/01/23 02/01/23 18:59 06:59 18:59 Intake Total 850 118 Output Total 1400 Balance -550 118 Intake: Oral 450 118 Hemodialysis 400 Output: Hemodialysis 1400 Other: Voiding Method Toilet Toilet Toilet # Voids 4 - Exam GENERAL: The patient is lying in bed and is not in acute distress. NEUROLOGICAL: Higher mental function: The patient is awake, alert, oriented to self, place and time. Patient is following commands. No aphasia and no neglect. Cranial nerves: The pupils are round, equal and reactive to light. Visual salgado are full to confrontation throughout. Extraocular movement is intact no nystagmus is noted. Facial sensation is normal to touch throughout. The facial strength is normal throughout. Has head and mouth tremor. Hearing is moderately decreased bilaterally to hand rub. Tongue is midline and moved [id number] without any difficulty. No dysarthria is noted. Shoulder shrug is normal bilaterally. Has resting tremor of the right upper extremity. Also has tremor with extension of bilateral arms. Motor: Gait is with slight assistance but has stooped postures and has shuffling gait. The strength is limited but lifting all extremities above gravity without focality. Normal tone and bulk. Cerebellum: Normal finger to nose bilaterally. Sensation: Sensation is normal to touch throughout. Reflexes (right/left): 1+ throughout. Plantars are downgoing bilaterally. Some other workup during his hospital visit consisted of: Vitamin B-12 is 1367 folate is more than 20. Valproic level is 48.9. Carotid duplex was reported as there is antegrade flow in the vertebral arteries. The images and measurements suggest less than 25% stenosis of both internal carotid arteries. Detailed brain is reported as cerebral atrophy. No acute intracranial abnormality. No change. I personally reviewed the CT and there is no acute or subacute ischemia, no significant large and encephalomalacia or any bleed noted. I feel the patient has generalized atrophy and the ventricles do not seem more enlarged compared to atrophy. - Labs CBC & Chem 7: 01/31/23 07:15 01/31/23 07:15 Labs: Abnormal Lab Results - Last 24 Hours (Table) 01/31/23 Range/Units 20:47 POC Glucose (mg/dL) 172 H (70-110) mg/dL Assessment and Plan Assessment: This is a 77-year-old gentleman with history of Parkinson's disease, bipolar, end-stage renal disease on dialysis who presented because of falls and generali zed weakness. Falls due to his Parkinson's disease. As well as I feel the patient has medication that would increase his tremors such as high dose of Depakote (for Bipolar) Parkinson's disease for years and the patient does not feel there is any benefit to the medication he is currently on End-stage renal disease on dialysis Generalized weakness and primary feels for past one year since ESRD on dialysis. But this also be attributed to his other factors in addition in addition to dialysis. Hypothyroidism Bipolar Hypothyroidism Polypharmacy Plan: I went down on Depakote from 1500 to 1250 mg ER daily on 01/31/23 and can consider going down to 1000mg in a few days to assess no worsening in bipolar and improvement in tremor. Can consider going up on Lamictal if needed. He is currently on Sinemet 25-100mg 1 tab QID (home dose). I will not make changes to assess if any improvement with Depakote. If not, then will consider going to 25-250 dose 1 tab tid. I ordered MRI Brain w/o and is pending. Patient had a recent thyroid lab testing in January 2023 and the TSH was elevated. He is on Synthroid and we'll defer the management to the primary team PT and OT are consulted We'll defer the rest of medical management to primary team Recommend the patient follow up with a neurologist outpatient within 1-2 weeks The plan was discussed with the patient and nursing assistance. Time with Patient: Less than 30
--- NOTE | 2023-02-01 12:37 | P.HPIM ---
History of Present Illness H&P Date: 01/30/23 HISTORY OF PRESENT ILLNESS This is a 77 year old male patient with past medical history of hypertension, hyperlipidemia, hypothyroidism, diabetes mellitus type 2, end-stage renal disease on hemodialysis Saturday, Parkinson's disease, bipolar disorder. Patient had a fall yesterday and ended up hitting his head that had another fall on 01/30. He denies having any loss of consciousness. Patient was brought into the emergency center by EMS for further evaluation. His initial vital signs were stable. Patient missed his dialysis on 01/29 due to weakness. EKG sinus rhythm with no acute ST changes. WBC 3.8. Hemoglobin 11.5, platelet count 160. Sodium 133, potassium 5.3, BUN 78 creatinine 5.22. Chloride 99, CO2 26. Blood sugar 103. Calcium 8.6. Total bilirubin 0.6, AST 30, ALT 7, alkaline phosphatase 46. Vitamin B12 1367. Folate greater than 20. Valproic acid 48.9. Treponema pallidum antibody nonreactive. Influenza A, influenza B, RSV, Covid 19 not detected. CAT scan of the brain showed cerebral atrophy. No acute intracranial abnormality. Patient admitted to the [facility] floor consult in place with nephrology and neurology. Patient has been maintained on his home medications. REVIEW OF SYSTEMS Constitutional: No fever, no chills, no night sweats. No weight change. Reported weakness, fatigue. No daytime sleepiness. EENT: No headache. No nasal drainage or congestion. No epistaxis. No sore throat. Lungs: No shortness of breath, cough, no sputum production. No wheezing. Cardiovascular: No chest pain, no lower extremity edema. No palpitations. No paroxysmal nocturnal dyspnea. No orthopnea. No lightheadedness or dizziness. No syncopal episodes. Abdominal: No abdominal pain. No nausea, vomiting. No diarrhea. No constipation. No bloody or tarry stools. No loss of appetite. Genitourinary: No dysuria, increased frequency, urgency. No urinary retention. Musculoskeletal: No myalgias. Reported muscle weakness, reported gait dysfunction with chronic shuffling gait secondary to Parkinson's, reported frequent falls. No back pain. No neck pain. Integumentary: No wounds, no lesions. No rash or pruritus. No unusual bruising. No change in hair or nails. Neurologic: No aphasia. No facial droop. No change in mentation. No head injury. No headache. No paralysis. No paresthesia. Psychiatric: Reported depression. No anxiety. Endocrine: No abnormal blood sugars. No weight change. No excessive sweating or thirst. No cold intolerance. MEDICAL HISTORY Hypertension Hyperlipidemia Hypothyroidism Diabetes mellitus type 2 End-stage renal disease on hemodialysis Saturday Parkinson's disease Bipolar disorder. SURGICAL HISTORY Left knee arthroscopically Left foot bone spur Left cataract surgery Left shoulder arthroscopically Right arm AV fistula Right groin Mg catheter. SOCIAL HISTORY Patient was a smoker one pack per day for 20 years ago quit 40 years ago. No alcohol use, no illicit drug use or marijuana use. He lives alone in senior housing. He normally uses a rolling walker for ambulation FAMILY HISTORY Father at age 73 from lung cancer with history of diabetes. Mother at age 74 from CHF. Brother is alive with diabetes. Sister is alive with diabetes. Patient has 2 daughters with no major medical problems. PHYSICAL EXAMINATION Gen: This is a 77-year-old male. He is resting in bed appears to be fairly comfortable. HEENT: Head is atraumatic, normocephalic. Pupils equal, round. Sclerae is anicteric. NECK: Supple. No JVD. No lymphadenopathy. No thyromegaly. LUNGS: Clear to auscultation. No wheezes or rhonchi. No intercostal retractions. HEART: Regular rate and rhythm. 2/6 systolic murmur at the left sternal border, no S3, no S4. ABDOMEN: Soft. Bowel sounds are present. No masses. No tenderness. EXTREMITIES: No pedal edema. No calf tenderness. Dorsalis pedis posterior bilaterally NEUROLOGICAL: Patient is awake, alert and oriented x3. Cranial nerves 2 through 12 are grossly intact. Deep tendon reflexes 2+ symmetrical ASSESSMENT AND PLAN 1. Increasing weakness, multiple falls multifactorial secondary to worsening Parkinson's disease, missing dialysis treatment. 2. End-stage renal disease on Saturday. Patient missed dialysis treatment on 01/29. Consult with Dr. Scott veliz. Patient is scheduled for hemodialysis today and again tomorrow.. 3. Hyperkalemia secondary to end-stage renal disease. Monitor potassium. 4. Parkinson's disease. Consult with neurology. Patient is currently on Sinemet [id number] milligrams 4 times daily. 5. Hypertension. Patient not currently on medications. No documented episodes of hypotension 6. Hyperlipidemia. Continue atorvastatin 10 mg at bedtime, fenofibrate 54 mg at bedtime. 7. Hypothyroidism. Continue levothyroxine 200 g daily and 50 g Saturday through Saturday and 75 g on Saturday. TSH on 01/07 was 8.9, free T4 normal at 1.02. 8. Diabetes mellitus type 2. With recent A1c 7.0. Continue NovoLog scale before meals and at bedtime. 9. Bipolar disorder. Patient is on Depakote. 10. 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 Continue ferrous sulfate 325 mg daily. 11. DVT prophylaxis. Heparin subcu 5000 units every 12 hours. 12. GI prophylaxis. Pepcid daily Patient will be admitted to the hospital for a minimum of 2 night stay. DISCHARGE PLAN Most likely return home as patient is declining rehab or home care services.. Impression and plan of care have been directed as dictated by the signing physician. Marci Morrell nurse practitioner acting as scribe for signing physician. Past Medical History Past Medical History: Diabetes Mellitus, Hearing Disorder / Deafness, Hyperlipidemia, Osteoarthritis (OA), Renal Disease, Sleep Apnea/CPAP/BIPAP, Thyroid Disorder Additional Past Medical History / Comment(s): Heart murmer, Parkinson's, CPAP use, hard of hearing. History of Any Multi-Drug Resistant Organisms: None Reported Past Surgical History: Orthopedic Surgery, Tonsillectomy Additional Past Surgical History / Comment(s): Bilateral knee surgery, left foot bone spur, right cataract removed, left shoulder arthroscopy, peritoneal dialysis catheter placed. Past Anesthesia/Blood Transfusion Reactions: No Reported Reaction Past Psychological History: Anxiety, Bipolar, Depression Smoking Status: Former smoker Past Alcohol Use History: None Reported Past Drug Use History: None Reported - Past Family History Father Family Medical History: Cancer Mother Additional Family Medical History / Comment(s): Mother at age 74 from heart failure. Brother(s) Additional Family Medical History / Comment(s): Patient has one brother and one sister both have diabetes. Patient's 3 children with no major medical problems. Medications and Allergies Home Medications Medication Instructions Recorded Confirmed Type Levothyroxine Sodium [Synthroid] 200 mcg PO DAILY 01/29/16 01/30/23 History Lovastatin [Mevacor] 40 mg PO HS 01/29/16 01/30/23 History Escitalopram [Lexapro] 20 mg PO QAM 11/06/19 01/30/23 History Fenofibrate 54 mg PO HS 02/19/22 01/30/23 History Insulin Lispro [humaLOG Kwikpen] See Protocol SQ AC-TID PRN 08/30/22 01/30/23 History Carbidopa/Levodopa 1 tab PO QID 01/30/23 01/30/23 History [Carbidopa-Levodopa 25-100 Tab] Cyanocobalamin (Vitamin B-12) 1,000 mcg PO DAILY 01/30/23 01/30/23 History [Vitamin B-12] Divalproex ER [Depakote ER] 1,500 mg PO DAILY 01/30/23 01/30/23 History Ferrous Sulfate [Feosol] 325 mg PO DAILY 01/30/23 01/30/23 History Folic Acid 0.4 mg PO DAILY 01/30/23 01/30/23 History Ketoconazole 2% Cream [Nizoral 2%] 1 applic TOPICAL DAILY 01/30/23 01/30/23 History Levothyroxine Sodium [Synthroid] 50 mcg PO MOTUWETHFRSA 01/30/23 01/30/23 Histo ry Levothyroxine Sodium [Synthroid] 75 mcg PO YUN 01/30/23 01/30/23 History Lidocaine-Prilocaine Cream [Emla 1 applic TOPICAL DIRECTED 01/30/23 01/30/23 History Cream 2.5%/2.5%] lamoTRIgine [LaMICtal] 150 mg PO DAILY 01/30/23 01/30/23 History Allergies Allergy/AdvReac Type Severity Reaction Status Date / Time No Known Allergies Allergy Verified 09/03/22 14:32 Physical Exam Vitals: Vital Signs Temp Pulse Pulse Resp BP BP Pulse Ox 01/30/23 10:56 97.5 F L 59 L 18 154/68 98 01/30/23 07:50 97.2 F L 64 16 144/73 99 01/30/23 07:36 64 16 144/73 99 01/30/23 04:37 97.2 F L 68 16 126/72 96 Intake and Output 01/29/23 01/30/23 01/30/23 22:59 06:59 14:59 Other: Weight 81.647 kg Results CBC & Chem 7: 01/31/23 07:15 01/31/23 07:15 Labs: Abnormal Lab Results - Last 24 Hours (Table) 01/30/23 01/30/23 Range/Units 05:46 05:46 RBC 3.55 L (4.30-5.90) m/uL Hgb 11.5 L (13.0-17.5) gm/dL Hct 33.8 L (39.0-53.0) % Sodium 133 L (137-145) mmol/L Potassium 5.3 H (3.5-5.1) mmol/L BUN 70 H (9-20) mg/dL Creatinine 5.22 H (0.66-1.25) mg/dL Glucose 103 H (74-99) mg/dL Total Protein 5.4 L (6.3-8.2) g/dL Albumin 2.9 L (3.5-5.0) g/dL
--- NOTE | 2023-02-01 12:42 | P.PN ---
Subjective Progress Note Date: 01/31/23 HISTORY OF PRESENT ILLNESS This is a 77 year old male patient with past medical history of hypertension, hyperlipidemia, hypothyroidism, diabetes mellitus type 2, end-stage renal diseas e on hemodialysis Saturday, Parkinson's disease, bipolar disorder. Patient had a fall yesterday and ended up hitting his head that had another fall on 01/30. He denies having any loss of consciousness. Patient was brought into the emergency center by EMS for further evaluation. His initial vital signs were stable. Patient missed his dialysis on 01/29 due to weakness. EKG sinus rhythm with no acute ST changes. WBC 3.8. Hemoglobin 11.5, platelet count 160. Sodium 133, potassium 5.3, BUN 78 creatinine 5.22. Chloride 99, CO2 26. Blood sugar 103. Calcium 8.6. Total bilirubin 0.6, AST 30, ALT 7, alkaline phosphatase 46. Vitamin B12 1367. Folate greater than 20. Valproic acid 48.9. Treponema pallidum antibody nonreactive. Influenza A, influenza B, RSV, Covid 19 not detected. CAT scan of the brain showed cerebral atrophy. No acute intracranial abnormality. Patient admitted to the [facility] floor consult in place with nephrology and neurology. Patient has been maintained on his home medications. 01/31: Patient has been seen by therapies with recommendations for subacute rehab or home care but patient has declined need for either. Patient underwent dialysis yesterday and is scheduled for a second dialysis treatment today. Neurology has decreased Depakote from 1500 mg to 1250 mg daily and may consider going down to 1000 mg in a few days to assess if there is worsening bipolar and improvement of tremor. May consider going up on the Lamictal. No changes were made to his Sinemet. MRI of the brain has been ordered Carotid ultrasound reveals less than 25% stenosis of both internal carotid arteries. REVIEW OF SYSTEMS Constitutional: No fever, no chills, no night sweats. No weight change. Reported weakness, fatigue. No daytime sleepiness. EENT: No headache. No nasal drainage or congestion. No epistaxis. No sore throat. Lungs: No shortness of breath, cough, no sputum production. No wheezing. Cardiovascular: No chest pain, no lower extremity edema. No palpitations. No paroxysmal nocturnal dyspnea. No orthopnea. No lightheadedness or dizziness. No syncopal episodes. Abdominal: No abdominal pain. No nausea, vomiting. No diarrhea. No constipation. No bloody or tarry stools. No loss of appetite. Genitourinary: No dysuria, increased frequency, urgency. No urinary retention. Musculoskeletal: No myalgias. Reported muscle weakness, reported gait dysfunction with chronic shuffling gait secondary to Parkinson's, reported frequent falls. No back pain. No neck pain. Integumentary: No wounds, no lesions. No rash or pruritus. No unusual bruising. No change in hair or nails. Neurologic: No aphasia. No facial droop. No change in mentation. No head injury. No headache. No paralysis. No paresthesia. Psychiatric: Reported depression. No anxiety. Endocrine: No abnormal blood sugars. No weight change. No excessive sweating or thirst. No cold intolerance. PHYSICAL EXAMINATION Gen: This is a 77-year-old male. He is resting in bed appears to be fairly comfortable. HEENT: Head is atraumatic, normocephalic. Pupils equal, round. Sclerae is anicteric. NECK: Supple. No JVD. No lymphadenopathy. No thyromegaly. LUNGS: Clear to auscultation. No wheezes or rhonchi. No intercostal retractions. HEART: Regular rate and rhythm. 2/6 systolic murmur at the left sternal border, no S3, no S4. ABDOMEN: Soft. Bowel sounds are present. No masses. No tenderness. EXTREMITIES: No pedal edema. No calf tenderness. Dorsalis pedis posterior bilaterally NEUROLOGICAL: Patient is awake, alert and oriented x3. Cranial nerves 2 through 12 are grossly intact. Deep tendon reflexes 2+ symmetrical ASSESSMENT AND PLAN 1. Increasing weakness, multiple falls multifactorial secondary to worsening Parkinson's disease, missing dialysis treatment. 2. End-stage renal disease on Saturday. Patient missed dialysis treatment on 01/29. Consult with Dr. Scott veliz. Patient is scheduled for hemodialysis today.. 3. Hyperkalemia secondary to end-stage renal disease. Monitor potassium. 4. Parkinson's disease. Consult with neurology. Patient is currently on Sinemet 55764 milligrams 4 times daily. Follow-up with outpatient neurologist in 1-2 weeks. 5. Hypertension. Patient not currently on medications. No documented episodes of hypotension 6. Hyperlipidemia. Continue atorvastatin 10 mg at bedtime, fenofibrate 54 mg at bedtime. 7. Hypothyroidism. Continue levothyroxine 200 g daily and 50 g Saturday through Saturday and 75 g on Saturday. TSH on 01/07 was 8.9, free T4 normal at 1.02. 8. Diabetes mellitus type 2. With recent A1c 7.0. Continue NovoLog scale before meals and at bedtime. 9. Bipolar disorder. Patient is on Depakote decreased to 1250 mg by neurology. 10. 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 Continue ferrous sulfate 325 mg daily. 11. DVT prophylaxis. Heparin subcu 5000 units every 12 hours. 12. GI prophylaxis. Pepcid daily DISCHARGE PLAN Most likely return home as patient is declining rehab or home care services.. Impression and plan of care have been directed as dictated by the signing physician. Marci Morrell nurse practitioner acting as scribe for signing physician. Objective - Vital Signs Vital signs: Vital Signs Temp 97.3 F L 01/31/23 08:22 Pulse 61 01/31/23 08:22 Resp 17 01/31/23 08:22 BP 168/70 01/31/23 08:22 Pulse Ox 98 01/31/23 08:22 FiO2 Intake & Output 01/30/23 01/31/23 01/31/23 18:59 06:59 18:59 Intake Total 400 Output Total 1400 0 Balance -1000 0 Weight 81.647 kg Intake: Hemodialysis 400 Output: Urine 0 Hemodialysis 1400 Other: Voiding Method Toilet Toilet # Voids 6 6 - Labs CBC & Chem 7: 01/31/23 07:15 01/31/23 07:15 Labs: Abnormal Lab Results - Last 24 Hours (Table) 01/30/23 01/30/23 01/30/23 Range/Units 16:24 17:35 20:23 WBC (4.50-10.00) X 10*3/uL RBC (4.40-5.60) X 10*6/uL Hgb (13.0-17.0) g/dL Hct (39.6-50.0) % MCV (80.0-97.0) fL MCHC (32.0-37.0) g/dL RDW (11.5-14.5) % Plt Count (140-440) X 10*3/uL MPV (9.5-12.2) fL Eosinophils # (0.04-0.35) X 10*3/uL BUN (9.0-27.0) mg/dL Creatinine (0.6-1.5) mg/dL Est GFR (CKD-EPI)AfAm (60.0-200.0) Est GFR (CKD-EPI)NonAf (60.0-200.0) BUN/Creatinine Ratio (12.00-20.00) Ratio POC Glucose (mg/dL) 130 H 259 H (70-110) mg/dL ALT (10-49) U/L Total Protein (6.2-8.2) g/dL Albumin (3.8-4.9) g/dL Vitamin B12 1367.0 H (200.0-944.0) pg/mL 01/31/23 01/31/23 01/31/23 Range/Units 07:15 07:15 11:44 WBC 4.18 L (4.50-10.00) X 10*3/uL RBC 3.51 L (4.40-5.60) X 10*6/uL Hgb 10.9 L (13.0-17.0) g/dL Hct 34.2 L (39.6-50.0) % MCV 97.4 H (80.0-97.0) fL MCHC 31.9 L (32.0-37.0) g/dL RDW 15.4 H (11.5-14.5) % Plt Count 131 L (140-440) X 10*3/uL MPV 9.0 L (9.5-12.2) fL Eosinophils # 0 L (0.04-0.35) X 10*3/uL BUN 31.8 H (9.0-27.0) mg/dL Creatinine 3.8 H (0.6-1.5) mg/dL Est GFR (CKD-EPI)AfAm 16.6 L (60.0-200.0) Est GFR (CKD-EPI)NonAf 14.3 L (60.0-200.0) BUN/Creatinine Ratio 8.39 L (12.00-20.00) Ratio POC Glucose (mg/dL) 152 H (70-110) mg/dL ALT 7 L (10-49) U/L Total Protein 5.1 L (6.2-8.2) g/dL Albumin 3.2 L (3.8-4.9) g/dL Vitamin B12 (200.0-944.0) pg/mL
[2023-02-01 13:26] LABS: Glucose,Whole Blood 217 mg/dL (70-110)
--- NOTE | 2023-02-01 13:43 | MR ---
EXAMINATION TYPE: MR brain wo con DATE OF EXAM: 02/01/2023 COMPARISON: CT brain 2 days ago HISTORY: Multiple falls, tremors. TECHNIQUE: Multiplanar, multisequence imaging of the brain and brainstem is performed without IV cont rast. FINDINGS: Diffusion weighted images demonstrate no evidence of a recent infarct or other diffusion abnormality. There is moderate ventricular and sulcal prominence. Mild T2 hyperintensity in the periventricular wh ite matter is seen. Midline structures demonstrate normal morphology. The craniocervical junction appears within normal limits. Normal vascular flow voids are present. Right-sided global aphakia is seen. Paranasal sinuses are clear. IMPRESSION: Moderate diffuse cerebral atrophy and mild chronic small vessel ischemic change. No MRI e vidence for a recent infarct.
--- NOTE | 2023-02-01 13:51 | CA ---
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 LV Systolic Volume MOD 4C 15.5 cm??? LV Ejection Fraction MOD 4C 76.7 % LV Diastolic Length 4C 7.7 cm LV Systolic Length 4C 6.0 cm LA Volume 42.4 cm??? 18 - 58 / 22 - 52 cm??? M-MODE Aortic Root Diameter MM 3.4 cm AV Cusp Separation MM 1.7 cm DOPPLER AV Peak Velocity 193.5 cm/s AV Peak Gradient 15.0 mmHg LVOT Peak Velocity 99.0 cm/s LVOT Peak Gradient 3.9 mmHg MV Area PHT 3.1 cm??? Mitral E Point Velocity 95.6 cm/s Mitral A Point Velocity 126.3 cm/s Mitral E to A Ratio 0.8 MV Deceleration Time 244.7 ms FINDINGS Left Ventricle Left ventricular hypertrophy. Left ventricular cavity size normal. Grade 1 diastolic dysfunction. Left ventricular ejection fraction is estimated at 60-65 %. Right Ventricle Normal right ventricular size and function. Right ventricular systolic pressure within normal limits. Right Atrium Normal right atrial size. Left Atrium Normal left atrial size. Mitral Valve Structurally normal mitral valve. No mitral regurgitation. No mitral stenosis. Aortic Valve Trileaflet aortic valve. Aortic valve sclerosis. No aortic regurgitation. No aortic stenosis. Tricuspid Valve Structurally normal tricuspid valve. No tricuspid regurgitation. Pulmonic Valve Structurally normal pulmonic valve. No pulmonic regurgitation. Pericardium No pericardial or pleural effusion. Aorta Aortic dilatation at the level of the sinuses of valsalva (root). Proximal ascending aorta (tube) normal. CONCLUSIONS Left ventricular ejection fraction 60-65% No mitral regurgitation No tricuspid regurgitation No pericardial effusion Previewed by: Dr. Migel Mcgregor DO (Electronically Signed) Final Date: 01 February 2023 13:51
--- NOTE | 2023-02-01 13:52 | P.PN ---
Subjective Progress Note Date: 02/01/23 HISTORY OF PRESENT ILLNESS This is a 77 year old male patient with past medical history of hypertension, hyperlipidemia, hypothyroidism, diabetes mellitus type 2, end-stage renal diseas e on hemodialysis Saturday, Parkinson's disease, bipolar disorder. Patient had a fall yesterday and ended up hitting his head that had another fall on 01/30. He denies having any loss of consciousness. Patient was brought into the emergency center by EMS for further evaluation. His initial vital signs were stable. Patient missed his dialysis on 01/29 due to weakness. EKG sinus rhythm with no acute ST changes. WBC 3.8. Hemoglobin 11.5, platelet count 160. Sodium 133, potassium 5.3, BUN 78 creatinine 5.22. Chloride 99, CO2 26. Blood sugar 103. Calcium 8.6. Total bilirubin 0.6, AST 30, ALT 7, alkaline phosphatase 46. Vitamin B12 1367. Folate greater than 20. Valproic acid 48.9. Treponema pallidum antibody nonreactive. Influenza A, influenza B, RSV, Covid 19 not detected. CAT scan of the brain showed cerebral atrophy. No acute intracranial abnormality. Patient admitted to the [facility] floor consult in place with nephrology and neurology. Patient has been maintained on his home medications. 01/31: Patient has been seen by therapies with recommendations for subacute rehab or home care but patient has declined need for either. Patient underwent dialysis yesterday and is scheduled for a second dialysis treatment today. Neurology has decreased Depakote from 1500 mg to 1250 mg daily and may consider going down to 1000 mg in a few days to assess if there is worsening bipolar and improvement of tremor. May consider going up on the Lamictal. No changes were made to his Sinemet. MRI of the brain has been ordered Carotid ultrasound reveals less than 25% stenosis of both internal carotid arteries. 02/01: MRI of the brain reveals moderate diffuse cerebral atrophy and mild chronic small vessel ischemic change. No evidence of recent infarct. Patient seen and followed by neurology. Neurology may decrease Depakote down to about thousand milligrams in a few days and going up on Lamictal if needed. Continue Sinemet at same dose. Plan for neurology follow-up in one to 2 weeks outpatient. REVIEW OF SYSTEMS Constitutional: No fever, no chills, no night sweats. No weight change. Reported weakness, fatigue. No daytime sleepiness. EENT: No headache. No nasal drainage or congestion. No epistaxis. No sore throat. Lungs: No shortness of breath, cough, no sputum production. No wheezing. Cardiovascular: No chest pain, no lower extremity edema. No palpitations. No paroxysmal nocturnal dyspnea. No orthopnea. No lightheadedness or dizziness. No syncopal episodes. Abdominal: No abdominal pain. No nausea, vomiting. No diarrhea. No constipation. No bloody or tarry stools. No loss of appetite. Genitourinary: No dysuria, increased frequency, urgency. No urinary retention. Musculoskeletal: No myalgias. Reported muscle weakness, reported gait dysfunction with chronic shuffling gait secondary to Parkinson's, reported frequent falls. No back pain. No neck pain. Integumentary: No wounds, no lesions. No rash or pruritus. No unusual bruising. No change in hair or nails. Neurologic: No aphasia. No facial droop. No change in mentation. No head injury. No headache. No paralysis. No paresthesia. Psychiatric: Reported depression. No anxiety. Endocrine: No abnormal blood sugars. No weight change. No excessive sweating or thirst. No cold intolerance. PHYSICAL EXAMINATION Gen: This is a 77-year-old male. He is resting in bed appears to be fairly comfortable. HEENT: Head is atraumatic, normocephalic. Pupils equal, round. Sclerae is anicteric. NECK: Supple. No JVD. No lymphadenopathy. No thyromegaly. LUNGS: Clear to auscultation. No wheezes or rhonchi. No intercostal retractions. HEART: Regular rate and rhythm. 2/6 systolic murmur at the left sternal border, no S3, no S4. ABDOMEN: Soft. Bowel sounds are present. No masses. No tenderness. EXTREMITIES: No pedal edema. No calf tenderness. Dorsalis pedis posterior bilaterally NEUROLOGICAL: Patient is awake, alert and oriented x3. Cranial nerves 2 through 12 are grossly intact. Deep tendon reflexes 2+ symmetrical ASSESSMENT AND PLAN 1. Increasing weakness, multiple falls multifactorial secondary to worsening Parkinson's disease, missing dialysis treatment. 2. End-stage renal disease on Saturday. Patient missed dialysis treatment on 01/29. Consult with Dr. Chavez appreciated. Patient is scheduled for hemodialysis today.. 3. Hyperkalemia secondary to end-stage renal disease. Monitor potassium. 4. Parkinson's disease. Consult with neurology. Patient is currently on Sinemet 92059 milligrams 4 times daily. Follow-up with outpatient neurologist in 1-2 weeks. 5. Hypertension. Patient not currently on medications. No documented episodes of hypotension 6. Hyperlipidemia. Continue atorvastatin 10 mg at bedtime, fenofibrate 54 mg at bedtime. 7. Hypothyroidism. Continue levothyroxine 200 g daily and 50 g Saturday through Saturday and 75 g on Saturday. TSH on 01/07 was 8.9, free T4 normal at 1.02. 8. Diabetes mellitus type 2. With recent A1c 7.0. Continue NovoLog scale before meals and at bedtime. 9. Bipolar disorder. Patient is on Depakote decreased to 1250 mg by neurology. 10. 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 Continue ferrous sulfate 325 mg daily. 11. DVT prophylaxis. Heparin subcu 5000 units every 12 hours. 12. GI prophylaxis. Pepcid daily DISCHARGE PLAN Most likely return home as patient is declining rehab or home care services although therapy is recommending. Impression and plan of care have been directed as dictated by the signing physician. Marci Morrell nurse practitioner acting as scribe for signing physician. Objective - Vital Signs Vital signs: Vital Signs Temp 97.7 F 02/01/23 13:26 Pulse 73 02/01/23 13:26 Resp 16 02/01/23 13:26 BP 123/67 02/01/23 13:26 Pulse Ox 96 02/01/23 13:26 FiO2 Intake & Output 01/31/23 02/01/23 02/01/23 18:59 06:59 18:59 Intake Total 850 118 Output Total 1400 Balance -550 118 Intake: Oral 450 118 Hemodialysis 400 Output: Hemodialysis 1400 Other: Voiding Method Toilet Toilet Toilet # Voids 4 - Labs CBC & Chem 7: 02/03/23 03:56 02/03/23 03:56 Labs: Abnormal Lab Results - Last 24 Hours (Table) 01/31/23 02/01/23 Range/Units 20:47 13:24 POC Glucose (mg/dL) 172 H 217 H (70-110) mg/dL
--- NOTE | 2023-02-01 15:58 | P.PN ---
Subjective Patient is seen for follow-up for end-stage renal disease. He is maintained on a Saturday schedule. Patient was admitted to the hospital with history of falls. No hypotension noted. Neurology has been consulted. Meds for Parkinson's disease being adjusted. Objective - Vital Signs Vital signs: Vital Signs Temp 97.7 F 02/01/23 13:26 Pulse 73 02/01/23 13:26 Resp 16 02/01/23 13:26 BP 123/67 02/01/23 13:26 Pulse Ox 96 02/01/23 13:26 FiO2 Intake & Output 01/31/23 02/01/23 02/01/23 18:59 06:59 18:59 Intake Total 850 118 200 Output Total 1400 Balance -550 118 200 Intake: Oral 450 118 200 Hemodialysis 400 Output: Hemodialysis 1400 Other: Voiding Method Toilet Toilet Toilet # Voids 4 - Exam On examination patient is awake, comfortable, no acute distress. Alert oriented 3 Examination of the heart S1 and S2 Examination of the lungs bilateral breath sounds are heard next and abdomen is soft nontender Examination of the lower extremity shows no edema [employer] exam grossly intact - Labs CBC & Chem 7: 01/31/23 07:15 01/31/23 07:15 Labs: Abnormal Lab Results - Last 24 Hours (Table) 01/31/23 02/01/23 Range/Units 20:47 13:24 POC Glucose (mg/dL) 172 H 217 H (70-110) mg/dL Assessment and Plan Assessment: 1. End-stage renal disease on hemodialysis on a Saturday schedule. 2. History of falls, etiology unclear. No evidence of hypotension. CT of the brain was negative. Patient does have Parkinson's disease. 3. CK D mineral bone disorder 4. Mild hyperkalemia associated with end-stage renal disease Plan: HD in am.
[2023-02-01 20:39] LABS: Glucose,Whole Blood 189 mg/dL (70-110)
[2023-02-01] MEDS: FENOFIBRATE 54 MG TAB PO SCH (20:48)
[2023-02-01] MEDS: ATORVASTATIN 10 MG TAB PO SCH (20:48)
[2023-02-02] MEDS: LEVOTHYROXINE 50 MCG TAB PO SCH (06:15)
[2023-02-02] MEDS: LEVOTHYROXINE 100 MCG TAB PO SCH (06:15)
[2023-02-02 06:17] LABS: Glucose,Whole Blood 116 mg/dL (70-110)
[2023-02-02] MEDS: INSULIN ASPART (NovoLOG) 100 UNIT/ML VIAL SQ SCH ×4 (08:41→21:02)
[2023-02-02] MEDS: FERROUS SULFATE 325 MG TAB PO SCH (08:44)
[2023-02-02] MEDS: FAMOTIDINE 20 MG TAB PO SCH (08:44)
[2023-02-02] MEDS: lamoTRIgine 100 MG TAB PO SCH (08:44)
[2023-02-02] MEDS: CYANOCOBALAMIN 500 MCG TAB PO SCH (08:45)
[2023-02-02] MEDS: CARBIDOPA-LEVODOPA 25-100 MG 1 EACH TAB PO SCH ×4 (08:46→21:02)
[2023-02-02] MEDS: FOLIC ACID 1 MG TAB PO SCH (08:46)
[2023-02-02] MEDS: CLOTRIMAZOLE 1% CREAM 30 GM TUBE TOPICAL SCH (08:46)
[2023-02-02] MEDS: HEPARIN SODIUM,PORCINE/PF 5,000 UNIT/0.5 ML SYRINGE SQ SCH ×2 (08:47→21:02)
[2023-02-02] MEDS: DIVALPROEX ER 250 MG TAB.ER.24H PO SCH (08:50)
[2023-02-02] MEDS: ESCITALOPRAM 20 MG TAB PO SCH (08:50)
[2023-02-02 09:00] LABS: Basophils # (A) 0.03 X 10*3/uL (0.00-0.10); Basophils % (A) 0.7 %; Eosinophils # (A) 0.05 X 10*3/uL (0.04-0.35); Eosinophils % (A) 1.1 %; HGB 10.5 g/dL (13.0-17.0); Immature Grans, Automated 0.7 %; Lymphocytes # (A) 2.16 X 10*3/uL (0.90-5.00); Lymphocytes % (A) 49.4 %; MCH 30.8 pg (27.0-32.0); MCHC 31.8 g/dL (32.0-37.0); MCV 96.8 fL (80.0-97.0); Mean Platelet Volume 9.6 fL (9.5-12.2); Monocytes # (A) 0.53 X 10*3/uL (0.20-1.00); Monocytes % (A) 12.1 %; NRBC Per 100 WBC 0 /100 WBCS (0.0-0.0); Neutrophils # (A) 1.57 X 10*3/uL (1.80-7.70); Platelet Count 112 X 10*3/uL (140-440); RBC 3.41 X 10*6/uL (4.40-5.60); RDW 15.4 % (11.5-14.5); WBC 4.37 X 10*3/uL (4.50-10.00)
[2023-02-02 09:30] LABS: African American GFR (CKD) 13.9 (60.0-200.0); Albumin/Globulin Ratio 1.5 (1.60-3.17); Anion Gap 8.8 mmol/L (10.00-18.00); BUN/Creat Ratio 6.98 Ratio (12.00-20.00); Blood Urea Nitrogen 30.7 mg/dL (9.0-27.0); Calcium 8.9 mg/dL (8.7-10.3); Carbon Dioxide 27.2 mmol/L (20.0-27.5); Potassium 4.6 mmol/L (3.5-5.5); Total Bilirubin 0.3 mg/dL (0.30-1.20)
--- NOTE | 2023-02-02 12:06 | P.PN ---
Subjective Progress Note Date: 02/02/23 HISTORY OF PRESENT ILLNESS This is a 77 year old male patient with past medical history of hypertension, hyperlipidemia, hypothyroidism, diabetes mellitus type 2, end-stage renal diseas e on hemodialysis Saturday, Parkinson's disease, bipolar disorder. Patient had a fall yesterday and ended up hitting his head that had another fall on 01/30. He denies having any loss of consciousness. Patient was brought into the emergency center by EMS for further evaluation. His initial vital signs were stable. Patient missed his dialysis on 01/29 due to weakness. EKG sinus rhythm with no acute ST changes. WBC 3.8. Hemoglobin 11.5, platelet count 160. Sodium 133, potassium 5.3, BUN 78 creatinine 5.22. Chloride 99, CO2 26. Blood sugar 103. Calcium 8.6. Total bilirubin 0.6, AST 30, ALT 7, alkaline phosphatase 46. Vitamin B12 1367. Folate greater than 20. Valproic acid 48.9. Treponema pallidum antibody nonreactive. Influenza A, influenza B, RSV, Covid 19 not detected. CAT scan of the brain showed cerebral atrophy. No acute intracranial abnormality. Patient admitted to the [facility] floor consult in place with nephrology and neurology. Patient has been maintained on his home medications. 01/31: Patient has been seen by therapies with recommendations for subacute rehab or home care but patient has declined need for either. Patient underwent dialysis yesterday and is scheduled for a second dialysis treatment today. Neurology has decreased Depakote from 1500 mg to 1250 mg daily and may consider going down to 1000 mg in a few days to assess if there is worsening bipolar and improvement of tremor. May consider going up on the Lamictal. No changes were made to his Sinemet. MRI of the brain has been ordered Carotid ultrasound reveals less than 25% stenosis of both internal carotid arteries. 02/01: MRI of the brain reveals moderate diffuse cerebral atrophy and mild chronic small vessel ischemic change. No evidence of recent infarct. Patient seen and followed by neurology. Neurology may decrease Depakote down to about thousand milligrams in a few days and going up on Lamictal if needed. Continue Sinemet at same dose. Plan for neurology follow-up in one to 2 weeks outpatient. 02/02: Patient is laying down in bed in no apparent distress, he has been followed by physical therapy and occupational therapy he was seen in consultation by neurology recommended to decrease the dose of Depakote I would not decrease belo w 1250 mg ,and increased siemt 25/100 mg po qid continue the dose of Lamictal , follow-up with the patient very closely, patient at this time is going for dialysis today, he is doing a bit better, we'll continue to follow the patient very closely. Hopefully home in the next 24 hours. REVIEW OF SYSTEMS Constitutional: No fever, no chills, no night sweats. No weight change. Reported weakness, fatigue. No daytime sleepiness. EENT: No headache. No nasal drainage or congestion. No epistaxis. No sore throat. Lungs: No shortness of breath, cough, no sputum production. No wheezing. Cardiovascular: No chest pain, no lower extremity edema. No palpitations. No paroxysmal nocturnal dyspnea. No orthopnea. No lightheadedness or dizziness. No syncopal episodes. Abdominal: No abdominal pain. No nausea, vomiting. No diarrhea. No constipation. No bloody or tarry stools. No loss of appetite. Genitourinary: No dysuria, increased frequency, urgency. No urinary retention. Musculoskeletal: No myalgias. Reported muscle weakness, reported gait dysfunction with chronic shuffling gait secondary to Parkinson's, reported frequent falls. No back pain. No neck pain. Integumentary: No wounds, no lesions. No rash or pruritus. No unusual bruising. No change in hair or nails. Neurologic: No aphasia. No facial droop. No change in mentation. No head injury. No headache. No paralysis. No paresthesia. Psychiatric: Reported depression. No anxiety. Endocrine: No abnormal blood sugars. No weight change. No excessive sweating or thirst. No cold intolerance. PHYSICAL EXAMINATION Gen: This is a 77-year-old male. He is resting in bed appears to be fairly comfortable. HEENT: Head is atraumatic, normocephalic. Pupils equal, round. Sclerae is anicteric. NECK: Supple. No JVD. No lymphadenopathy. No thyromegaly. LUNGS: Clear to auscultation. No wheezes or rhonchi. No intercostal retractions. HEART: Regular rate and rhythm. 2/6 systolic murmur at the left sternal border, no S3, no S4. ABDOMEN: Soft. Bowel sounds are present. No masses. No tenderness. EXTREMITIES: No pedal edema. No calf tenderness. Dorsalis pedis posterior bilaterally NEUROLOGICAL: Patient is awake, alert and oriented x3. Cranial nerves 2 through 12 are grossly intact. Deep tendon reflexes 2+ symmetrical ASSESSMENT AND PLAN 1. Increasing weakness, multiple falls multifactorial secondary to worsening Parkinson's disease, continue and increase Sinemet to 25/100 orally 4 times every day, continue to monitor the patient very closely. 2. End-stage renal disease on Saturday. Patient missed dialysis treatment on 01/29. Consult with Dr. Scott veliz. Patient is scheduled for hemodialysis today.. 3. Hyperkalemia secondary to end-stage renal disease. Monitor potassium. 4. Parkinson's disease. Consult with neurology. Patient is currently on Sinemet 76968 milligrams 4 times daily. Follow-up with outpatient neurologist in 1-2 weeks. 5. Hypertension. Patient not currently on medications. No documented episodes of hypotension 6. Hyperlipidemia. Continue atorvastatin 10 mg at bedtime, fenofibrate 54 mg at bedtime. 7. Hypothyroidism. Continue levothyroxine 200 g daily and 50 g Saturday through Saturday and 75 g on Saturday. TSH on 01/07 was 8.9, free T4 normal at 1.02. 8. Diabetes mellitus type 2. With recent A1c 7.0. Continue NovoLog scale before meals and at bedtime. 9. Bipolar disorder. Patient is on Depakote decreased to 1250 mg by neurology. 10. 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 Continue ferrous sulfate 325 mg daily. 11. DVT prophylaxis. Heparin subcu 5000 units every 12 hours. 12. GI prophylaxis. Pepcid daily 13. Patient can be discharged home tomorrow morning. DISCHARGE PLAN Most likely return home as patient is declining rehab or home care services.. Objective - Vital Signs Vital signs: Vital Signs Temp 97.1 F L 02/02/23 08:00 Pulse 56 L 02/02/23 08:00 Resp 17 02/02/23 08:00 BP 134/73 02/02/23 08:00 Pulse Ox 96 02/02/23 08:00 FiO2 Intake & Output 02/01/23 02/02/23 02/02/23 18:59 06:59 18:59 Intake Total 400 Balance 400 Intake: Oral 400 Other: Voiding Method Toilet Toilet Urinal # Voids 2 2 # Bowel Movements 0 - Labs CBC & Chem 7: 02/02/23 05:26 02/02/23 05:26 Labs: Abnormal Lab Results - Last 24 Hours (Table) 02/01/23 02/01/23 02/02/23 Range/Units 13:24 20:38 05:26 WBC 4.37 L (4.50-10.00) X 10*3/uL RBC 3.41 L (4.40-5.60) X 10*6/uL Hgb 10.5 L (13.0-17.0) g/dL Hct 33.0 L (39.6-50.0) % MCHC 31.8 L (32.0-37.0) g/dL RDW 15.4 H (11.5-14.5) % Plt Count 112 L (140-440) X 10*3/uL Neutrophils # 1.57 L (1.80-7.70) X 10*3/uL Anion Gap (10.00-18.00) mmol/L BUN (9.0-27.0) mg/dL Creatinine (0.6-1.5) mg/dL Est GFR (CKD-EPI)AfAm (60.0-200.0) Est GFR (CKD-EPI)NonAf (60.0-200.0) BUN/Creatinine Ratio (12.00-20.00) Ratio Glucose (70-110) mg/dL POC Glucose (mg/dL) 217 H 189 H (70-110) mg/dL ALT (10-49) U/L Total Protein (6.2-8.2) g/dL Albumin (3.8-4.9) g/dL Albumin/Globulin Ratio (1.60-3.17) g/dL 02/02/23 02/02/23 Range/Units 05:26 06:16 WBC (4.50-10.00) X 10*3/uL RBC (4.40-5.60) X 10*6/uL Hgb (13.0-17.0) g/dL Hct (39.6-50.0) % MCHC (32.0-37.0) g/dL RDW (11.5-14.5) % Plt Count (140-440) X 10*3/uL Neutrophils # (1.80-7.70) X 10*3/uL Anion Gap 8.80 L (10.00-18.00) mmol/L BUN 30.7 H (9.0-27.0) mg/dL Creatinine 4.4 H (0.6-1.5) mg/dL Est GFR (CKD-EPI)AfAm 13.9 L (60.0-200.0) Est GFR (CKD-EPI)NonAf 12.0 L (60.0-200.0) BUN/Creatinine Ratio 6.98 L (12.00-20.00) Ratio Glucose 115 H (70-110) mg/dL POC Glucose (mg/dL) 116 H (70-110) mg/dL ALT 8 L (10-49) U/L Total Protein 5.0 L (6.2-8.2) g/dL Albumin 3.0 L (3.8-4.9) g/dL Albumin/Globulin Ratio 1.50 L (1.60-3.17) g/dL
[2023-02-02 12:33] LABS: Glucose,Whole Blood 125 mg/dL (70-110)
--- NOTE | 2023-02-02 13:30 | P.PN ---
Subjective Progress Note Date: 02/02/23 The patient is sitting in a recliner chair and feels about the same. She stated that he's been having tremor like this for the last close to 9 years possibly. Objective - Vital Signs Vital signs: Vital Signs Temp 97.1 F L 02/02/23 08:00 Pulse 56 L 02/02/23 08:00 Resp 17 02/02/23 08:00 BP 134/73 02/02/23 08:00 Pulse Ox 96 02/02/23 08:00 FiO2 Intake & Output 02/01/23 02/02/23 02/02/23 18:59 06:59 18:59 Intake Total 400 300 Balance 400 300 Intake: Oral 400 300 Other: Voiding Method Toilet Toilet Urinal # Voids 2 2 # Bowel Movements 0 - Exam GENERAL: The patient is lying in bed and is not in acute distress. NEUROLOGICAL: Higher mental function: The patient is awake, alert, oriented to self, place and time. Patient is following commands. No aphasia and no neglect. Cranial nerves: The pupils are round, equal and reactive to light. Visual salgado are full to confrontation throughout. Extraocular movement is intact no nystagmus is noted. Facial sensation is normal to touch throughout. The facial strength is normal throughout. Has head and mouth tremor. Hearing is moderately decreased bilaterally to hand rub. Tongue is midline and moved [id number] without any difficulty. No dysarthria is noted. Shoulder shrug is normal bilaterally. Has resting tremor of the right upper extremity. Also has tremor with extension of bilateral arms. Motor: G. The strength is limited but lifting all extremities above gravity without focality. Normal tone and bulk. Has tremor with extending his hands and attempting to grab things. Has mild tremor of left upper at rest. Cerebellum: Normal finger to nose bilaterally. Sensation: Sensation is normal to touch throughout. Reflexes (right/left): 1+ throughout. Plantars are downgoing bilaterally. Some other workup during his hospital visit consisted of: Vitamin B-12 is 1367 folate is more than 20. Valproic level is 48.9. Carotid duplex was reported as there is antegrade flow in the vertebral arteries. The images and measurements suggest less than 25% stenosis of both internal carotid arteries. CT brain is reported as cerebral atrophy. No acute intracranial abnormality. No change. I personally reviewed the CT and there is no acute or subacute ischemia, no significant large and encephalomalacia or any bleed noted. I feel the patient has generalized atrophy and the ventricles do not seem more enlarged compared to atrophy. MR the brain is reported as moderate diffuse cerebral atrophy and chronic small vessel ischemic change. No MRI evidence for recent infarct. I personally reviewed the brain and there is no acute subacute ischemia. - Labs CBC & Chem 7: 02/02/23 05:26 02/02/23 05:26 Labs: Abnormal Lab Results - Last 24 Hours (Table) 02/01/23 02/01/23 02/02/23 Range/Units 13:24 20:38 05:26 WBC 4.37 L (4.50-10.00) X 10*3/uL RBC 3.41 L (4.40-5.60) X 10*6/uL Hgb 10.5 L (13.0-17.0) g/dL Hct 33.0 L (39.6-50.0) % MCHC 31.8 L (32.0-37.0) g/dL RDW 15.4 H (11.5-14.5) % Plt Count 112 L (140-440) X 10*3/uL Neutrophils # 1.57 L (1.80-7.70) X 10*3/uL Anion Gap (10.00-18.00) mmol/L BUN (9.0-27.0) mg/dL Creatinine (0.6-1.5) mg/dL Est GFR (CKD-EPI)AfAm (60.0-200.0) Est GFR (CKD-EPI)NonAf (60.0-200.0) BUN/Creatinine Ratio (12.00-20.00) Ratio Glucose (70-110) mg/dL POC Glucose (mg/dL) 217 H 189 H (70-110) mg/dL ALT (10-49) U/L Total Protein (6.2-8.2) g/dL Albumin (3.8-4.9) g/dL Albumin/Globulin Ratio (1.60-3.17) g/dL 02/02/23 02/02/23 02/02/23 Range/Units 05:26 06:16 12:32 WBC (4.50-10.00) X 10*3/uL RBC (4.40-5.60) X 10*6/uL Hgb (13.0-17.0) g/dL Hct (39.6-50.0) % MCHC (32.0-37.0) g/dL RDW (11.5-14.5) % Plt Count (140-440) X 10*3/uL Neutrophils # (1.80-7.70) X 10*3/uL Anion Gap 8.80 L (10.00-18.00) mmol/L BUN 30.7 H (9.0-27.0) mg/dL Creatinine 4.4 H (0.6-1.5) mg/dL Est GFR (CKD-EPI)AfAm 13.9 L (60.0-200.0) Est GFR (CKD-EPI)NonAf 12.0 L (60.0-200.0) BUN/Creatinine Ratio 6.98 L (12.00-20.00) Ratio Glucose 115 H (70-110) mg/dL POC Glucose (mg/dL) 116 H 125 H (70-110) mg/dL ALT 8 L (10-49) U/L Total Protein 5.0 L (6.2-8.2) g/dL Albumin 3.0 L (3.8-4.9) g/dL Albumin/Globulin Ratio 1.50 L (1.60-3.17) g/dL Assessment and Plan Assessment: This is a 77-year-old gentleman with history of Parkinson's disease, bipolar, end-stage renal disease on dialysis who presented because of falls and generalized weakness. Falls due to his Parkinson's disease. As well as I feel the patient has medication that would increase his tremors such as high dose of Depakote (for Bipolar) Parkinson's disease for years and the patient does not feel there is any benefit to the medication he is currently on ?component of essential tremor (since feels tremors are with action and not rest) End-stage renal disease on dialysis Generalized weakness and primary feels for past one year since ESRD on dialysis. But this also be attributed to his other factors in addition in addition to dialysis. Hypothyroidism Bipolar Hypothyroidism Polypharmacy Plan: I started him on Primidone 25mg bid and will see if any benefit to ?essential tremor (since feels tremors are with rest and not action). And by tomorrow will go up to 50mg bid and assess movement. Recommend Gallito scan as outpatient to assess if truly essential vs Parkinson's disease. I went down on Depakote from 1500 to 1250 mg ER daily on 01/31/23 and can consider going down to 1000mg in a few days to assess no worsening in bipolar and improvement in tremor. Can consider going up on Lamictal if needed. He is currently on Sinemet 25-100mg 1 tab QID (home dose). I will not make changes to assess if any improvement with Depakote. If not, then will consider going to 25-250 dose 1 tab tid. Patient had a recent thyroid lab testing in January 2023 and the TSH was elevated. He is on Synthroid and we'll defer the management to the primary team PT and OT are consulted We'll defer the rest of medical management to primary team Recommend the patient follow up with a neurologist outpatient within 1-2 weeks The plan was discussed with the patient. Time with Patient: Less than 30
[2023-02-02] MEDS: PRIMIDONE 25 MG TAB PO SCH ×2 (15:29→21:02)
--- NOTE | 2023-02-02 15:29 | P.PN ---
Subjective Progress Note Date: 02/02/23 Follow-up for ESRD. Objective - Vital Signs Vital signs: Vital Signs Temp 98.2 F 02/02/23 14:00 Pulse 62 02/02/23 14:00 Resp 18 02/02/23 14:00 BP 129/89 02/02/23 14:00 Pulse Ox 98 02/02/23 14:00 FiO2 Intake & Output 02/01/23 02/02/23 02/02/23 18:59 06:59 18:59 Intake Total 400 300 Balance 400 300 Intake: Oral 400 300 Other: Voiding Method Toilet Toilet Toilet Urinal Urinal # Voids 2 2 # Bowel Movements 0 - Exam No acute distress S1-S2 heard Decreased breath sounds No edema - Labs CBC & Chem 7: 02/02/23 05:26 02/02/23 05:26 Labs: Abnormal Lab Results - Last 24 Hours (Table) 02/01/23 02/02/23 02/02/23 Range/Units 20:38 05:26 05:26 WBC 4.37 L (4.50-10.00) X 10*3/uL RBC 3.41 L (4.40-5.60) X 10*6/uL Hgb 10.5 L (13.0-17.0) g/dL Hct 33.0 L (39.6-50.0) % MCHC 31.8 L (32.0-37.0) g/dL RDW 15.4 H (11.5-14.5) % Plt Count 112 L (140-440) X 10*3/uL Neutrophils # 1.57 L (1.80-7.70) X 10*3/uL Anion Gap 8.80 L (10.00-18.00) mmol/L BUN 30.7 H (9.0-27.0) mg/dL Creatinine 4.4 H (0.6-1.5) mg/dL Est GFR (CKD-EPI)AfAm 13.9 L (60.0-200.0) Est GFR (CKD-EPI)NonAf 12.0 L (60.0-200.0) BUN/Creatinine Ratio 6.98 L (12.00-20.00) Ratio Glucose 115 H (70-110) mg/dL POC Glucose (mg/dL) 189 H (70-110) mg/dL ALT 8 L (10-49) U/L Total Protein 5.0 L (6.2-8.2) g/dL Albumin 3.0 L (3.8-4.9) g/dL Albumin/Globulin Ratio 1.50 L (1.60-3.17) g/dL 02/02/23 02/02/23 Range/Units 06:16 12:32 WBC (4.50-10.00) X 10*3/uL RBC (4.40-5.60) X 10*6/uL Hgb (13.0-17.0) g/dL Hct (39.6-50.0) % MCHC (32.0-37.0) g/dL RDW (11.5-14.5) % Plt Count (140-440) X 10*3/uL Neutrophils # (1.80-7.70) X 10*3/uL Anion Gap (10.00-18.00) mmol/L BUN (9.0-27.0) mg/dL Creatinine (0.6-1.5) mg/dL Est GFR (CKD-EPI)AfAm (60.0-200.0) Est GFR (CKD-EPI)NonAf (60.0-200.0) BUN/Creatinine Ratio (12.00-20.00) Ratio Glucose (70-110) mg/dL POC Glucose (mg/dL) 116 H 125 H (70-110) mg/dL ALT (10-49) U/L Total Protein (6.2-8.2) g/dL Albumin (3.8-4.9) g/dL Albumin/Globulin Ratio (1.60-3.17) g/dL Assessment and Plan Assessment: #1 ESRD TTS #2 history of falls unclear etiology. No evidence of hypotension. CT head negative #3 metabolic bone disease #5 anemia with chronic kidney disease #6 mild hyperkalemia resolved. Plan: #1 hemodialysis today as per outpatient schedule. #2 ESRD medications
[2023-02-02 16:43] LABS: Glucose,Whole Blood 124 mg/dL (70-110)
[2023-02-02 20:46] LABS: Glucose,Whole Blood 317 mg/dL (70-110)
[2023-02-02] MEDS: FENOFIBRATE 54 MG TAB PO SCH (21:02)
[2023-02-02] MEDS: ATORVASTATIN 10 MG TAB PO SCH (21:02)
[2023-02-03 05:26] LABS: Glucose,Whole Blood 110 mg/dL (70-110)
[2023-02-03] MEDS: INSULIN ASPART (NovoLOG) 100 UNIT/ML VIAL SQ SCH ×4 (05:42→21:09)
[2023-02-03] MEDS ORDERED: LEVOTHYROXINE 75 MCG TAB PO SCH (06:30)
[2023-02-03] MEDS ORDERED: LEVOTHYROXINE 50 MCG TAB PO SCH (06:30)
[2023-02-03] MEDS: LEVOTHYROXINE 100 MCG TAB PO SCH (06:34)
[2023-02-03 09:12] LABS: African American GFR (CKD) 19.7 (60.0-200.0); Albumin 2.9 g/dL (3.8-4.9); Albumin/Globulin Ratio 1.4 (1.60-3.17); Anion Gap 8.7 mmol/L (10.00-18.00); BUN/Creat Ratio 6.35 Ratio (12.00-20.00); Blood Urea Nitrogen 20.9 mg/dL (9.0-27.0); Calcium 8.7 mg/dL (8.7-10.3); Total Bilirubin 0.3 mg/dL (0.30-1.20); Total Protein 4.9 g/dL (6.2-8.2)
[2023-02-03 09:21] LABS: Basophils # (A) 0.03 X 10*3/uL (0.00-0.10); Basophils % (A) 0.7 %; Eosinophils # (A) 0.06 X 10*3/uL (0.04-0.35); Eosinophils % (A) 1.4 %; HCT 33.1 % (39.6-50.0); HGB 10.8 g/dL (13.0-17.0); Lymphocytes # (A) 1.62 X 10*3/uL (0.90-5.00); Lymphocytes % (A) 38.5 %; MCH 31.8 pg (27.0-32.0); MCHC 32.6 g/dL (32.0-37.0); MCV 97.4 fL (80.0-97.0); Monocytes # (A) 0.57 X 10*3/uL (0.20-1.00); Monocytes % (A) 13.5 %; NRBC Per 100 WBC 0 /100 WBCS (0.0-0.0); Neutrophils # (A) 1.89 X 10*3/uL (1.80-7.70); Neutrophils % (A) 44.9 %; Platelet Count 119 X 10*3/uL (140-440); RDW 15.1 % (11.5-14.5); WBC 4.21 X 10*3/uL (4.50-10.00)
[2023-02-03 11:21] LABS: Glucose,Whole Blood 133 mg/dL (70-110)
[2023-02-03] MEDS: FAMOTIDINE 20 MG TAB PO SCH (11:27)
[2023-02-03] MEDS: FERROUS SULFATE 325 MG TAB PO SCH (11:28)
[2023-02-03] MEDS: FOLIC ACID 1 MG TAB PO SCH (11:28)
[2023-02-03] MEDS: ESCITALOPRAM 20 MG TAB PO SCH (11:28)
[2023-02-03] MEDS: CYANOCOBALAMIN 500 MCG TAB PO SCH (11:28)
[2023-02-03] MEDS: lamoTRIgine 100 MG TAB PO SCH (11:29)
[2023-02-03] MEDS: DIVALPROEX ER 250 MG TAB.ER.24H PO SCH (11:30)
[2023-02-03] MEDS: CARBIDOPA-LEVODOPA 25-100 MG 1 EACH TAB PO SCH ×2 (11:30→13:55)
[2023-02-03] MEDS: PRIMIDONE 25 MG TAB PO SCH (11:33)
[2023-02-03] MEDS: HEPARIN SODIUM,PORCINE/PF 5,000 UNIT/0.5 ML SYRINGE SQ SCH ×2 (11:34→21:10)
[2023-02-03] MEDS: CLOTRIMAZOLE 1% CREAM 30 GM TUBE TOPICAL SCH (11:36)
--- NOTE | 2023-02-03 12:14 | P.PN ---
Subjective Progress Note Date: 02/03/23 HISTORY OF PRESENT ILLNESS This is a 77 year old male patient with past medical history of hypertension, hyperlipidemia, hypothyroidism, diabetes mellitus type 2, end-stage renal diseas e on hemodialysis Saturday, Parkinson's disease, bipolar disorder. Patient had a fall yesterday and ended up hitting his head that had another fall on 01/30. He denies having any loss of consciousness. Patient was brought into the emergency center by EMS for further evaluation. His initial vital signs were stable. Patient missed his dialysis on 01/29 due to weakness. EKG sinus rhythm with no acute ST changes. WBC 3.8. Hemoglobin 11.5, platelet count 160. Sodium 133, potassium 5.3, BUN 78 creatinine 5.22. Chloride 99, CO2 26. Blood sugar 103. Calcium 8.6. Total bilirubin 0.6, AST 30, ALT 7, alkaline phosphatase 46. Vitamin B12 1367. Folate greater than 20. Valproic acid 48.9. Treponema pallidum antibody nonreactive. Influenza A, influenza B, RSV, Covid 19 not detected. CAT scan of the brain showed cerebral atrophy. No acute intracranial abnormality. Patient admitted to the [facility] floor consult in place with nephrology and neurology. Patient has been maintained on his home medications. 01/31: Patient has been seen by therapies with recommendations for subacute rehab or home care but patient has declined need for either. Patient underwent dialysis yesterday and is scheduled for a second dialysis treatment today. Neurology has decreased Depakote from 1500 mg to 1250 mg daily and may consider going down to 1000 mg in a few days to assess if there is worsening bipolar and improvement of tremor. May consider going up on the Lamictal. No changes were made to his Sinemet. MRI of the brain has been ordered Carotid ultrasound reveals less than 25% stenosis of both internal carotid arteries. 02/01: MRI of the brain reveals moderate diffuse cerebral atrophy and mild chronic small vessel ischemic change. No evidence of recent infarct. Patient seen and followed by neurology. Neurology may decrease Depakote down to about thousand milligrams in a few days and going up on Lamictal if needed. Continue Sinemet at same dose. Plan for neurology follow-up in one to 2 weeks outpatient. 02/02: Patient is laying down in bed in no apparent distress, he has been followed by physical therapy and occupational therapy he was seen in consultation by neurology recommended to decrease the dose of Depakote I would not decrease belo w 1250 mg ,and increased siemt 25/100 mg po qid continue the dose of Lamictal , follow-up with the patient very closely, patient at this time is going for dialysis today, he is doing a bit better, we'll continue to follow the patient very closely. Hopefully home in the next 24 hours. 02/03: Patient is laying down in bed using his CPAP machine, he is denying any chest pain, shortness breath, he was dialyzed yesterday, I believe the patient is in agreement to go for a snf at this time, we'll consult licensed social worker for possible [facility] snf rehab tomorrow morning, he shouldn't is to be maintained on the current treatment plan, he will continue to have physical therapy because of recurrent falls and because underlying Parkinson disease. REVIEW OF SYSTEMS Constitutional: No fever, no chills, no night sweats. No weight change. Reported weakness, fatigue. No daytime sleepiness. EENT: No headache. No nasal drainage or congestion. No epistaxis. No sore throat. Lungs: No shortness of breath, cough, no sputum production. No wheezing. Cardiovascular: No chest pain, no lower extremity edema. No palpitations. No paroxysmal nocturnal dyspnea. No orthopnea. No lightheadedness or dizziness. No syncopal episodes. Abdominal: No abdominal pain. No nausea, vomiting. No diarrhea. No constipation. No bloody or tarry stools. No loss of appetite. Genitourinary: No dysuria, increased frequency, urgency. No urinary retention. Musculoskeletal: No myalgias. Reported muscle weakness, reported gait dysfunction with chronic shuffling gait secondary to Parkinson's, reported frequent falls. No back pain. No neck pain. Integumentary: No wounds, no lesions. No rash or pruritus. No unusual bruising. No change in hair or nails. Neurologic: No aphasia. No facial droop. No change in mentation. No head injury. No headache. No paralysis. No paresthesia. Psychiatric: Reported depression. No anxiety. Endocrine: No abnormal blood sugars. No weight change. No excessive sweating or thirst. No cold intolerance. PHYSICAL EXAMINATION Gen: This is a 77-year-old male. He is resting in bed appears to be fairly comfortable. HEENT: Head is atraumatic, normocephalic. Pupils equal, round. Sclerae is anicteric. NECK: Supple. No JVD. No lymphadenopathy. No thyromegaly. LUNGS: Clear to auscultation. No wheezes or rhonchi. No intercostal retractions. HEART: Regular rate and rhythm. 2/ systolic murmur at the left sternal border, no S3, no S4. ABDOMEN: Soft. Bowel sounds are present. No masses. No tenderness. EXTREMITIES: No pedal edema. No calf tenderness. Dorsalis pedis posterior bilaterally NEUROLOGICAL: Patient is awake, alert and oriented x3. Cranial nerves 2 through 12 are grossly intact. Deep tendon reflexes 2+ symmetrical ASSESSMENT AND PLAN 1. Increasing weakness, multiple falls multifactorial secondary to worsening Parkinson's disease, continue and increase Sinemet to 25/100 orally 4 times every day, continue to monitor the patient very closely. 2. End-stage renal disease on Saturday. Patient missed dialysis treatment on 01/29. Consult with Dr. Scott veliz. Patient is scheduled for hemodialysis today.. 3. Hyperkalemia secondary to end-stage renal disease. Monitor potassium. 4. Parkinson's disease. Consult with neurology. Patient is currently on Sinemet 84582 milligrams 4 times daily. Follow-up with outpatient neurologist in 1-2 weeks. 5. Hypertension. Patient not currently on medications. No documented episodes of hypotension 6. Hyperlipidemia. Continue atorvastatin 10 mg at bedtime, fenofibrate 54 mg at bedtime. 7. Hypothyroidism. Continue levothyroxine 200 g daily and 50 g Saturday through Saturday and 75 g on Saturday. TSH on 01/07 was 8.9, free T4 normal at 1.02. 8. Diabetes mellitus type 2. With recent A1c 7.0. Continue NovoLog scale before meals and at bedtime. 9. Bipolar disorder. Patient is on Depakote decreased to 1250 mg by neurology. 10. 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 Continue ferrous sulfate 325 mg daily. 11. DVT prophylaxis. Heparin subcu 5000 units every 12 hours. 12. GI prophylaxis. Pepcid daily 13. Patient will be discharged to [facility] tomorrow morning. Objective - Vital Signs Vital signs: Vital Signs Temp 98.1 F 02/03/23 08:00 Pulse 57 L 02/03/23 08:00 Resp 17 02/03/23 08:00 BP 121/65 02/03/23 08:00 Pulse Ox 98 02/03/23 08:00 FiO2 Intake & Output 02/02/23 02/03/23 02/03/23 18:59 06:59 18:59 Intake Total 300 Output Total 200 Balance 100 Intake: Oral 300 Output: Urine 200 Other: Voiding Method Toilet Urinal Urinal # Voids 3 # Bowel Movements 1 1 - Labs CBC & Chem 7: 02/03/23 03:56 02/03/23 03:56 Labs: Abnormal Lab Results - Last 24 Hours (Table) 02/02/23 02/02/23 02/02/23 Range/Units 12:32 16:42 20:45 WBC (4.50-10.00) X 10*3/uL RBC (4.40-5.60) X 10*6/uL Hgb (13.0-17.0) g/dL Hct (39.6-50.0) % MCV (80.0-97.0) fL RDW (11.5-14.5) % Plt Count (140-440) X 10*3/uL Carbon Dioxide (20.0-27.5) mmol/L Anion Gap (10.00-18.00) mmol/L Creatinine (0.6-1.5) mg/dL Est GFR (CKD-EPI)AfAm (60.0-200.0) Est GFR (CKD-EPI)NonAf (60.0-200.0) BUN/Creatinine Ratio (12.00-20.00) Ratio POC Glucose (mg/dL) 125 H 124 H 317 H (70-110) mg/dL ALT (10-49) U/L Total Protein (6.2-8.2) g/dL Albumin (3.8-4.9) g/dL Albumin/Globulin Ratio (1.60-3.17) g/dL 02/03/23 02/03/23 02/03/23 Range/Units 03:56 03:56 11:20 WBC 4.21 L (4.50-10.00) X 10*3/uL RBC 3.40 L (4.40-5.60) X 10*6/uL Hgb 10.8 L (13.0-17.0) g/dL Hct 33.1 L (39.6-50.0) % MCV 97.4 H (80.0-97.0) fL RDW 15.1 H (11.5-14.5) % Plt Count 119 L (140-440) X 10*3/uL Carbon Dioxide 32.0 H (20.0-27.5) mmol/L Anion Gap 8.70 L (10.00-18.00) mmol/L Creatinine 3.3 H (0.6-1.5) mg/dL Est GFR (CKD-EPI)AfAm 19.7 L (60.0-200.0) Est GFR (CKD-EPI)NonAf 17.0 L (60.0-200.0) BUN/Creatinine Ratio 6.35 L (12.00-20.00) Ratio POC Glucose (mg/dL) 133 H (70-110) mg/dL ALT 7 L (10-49) U/L Total Protein 4.9 L (6.2-8.2) g/dL Albumin 2.9 L (3.8-4.9) g/dL Albumin/Globulin Ratio 1.40 L (1.60-3.17) g/dL
--- NOTE | 2023-02-03 14:12 | P.PN ---
Subjective Progress Note Date: 02/03/23 The patient is seen at bedside slightly better if any. Otherwise denies any new neurological issues. Objective - Vital Signs Vital signs: Vital Signs Temp 98.1 F 02/03/23 08:00 Pulse 57 L 02/03/23 08:00 Resp 17 02/03/23 08:00 BP 121/65 02/03/23 08:00 Pulse Ox 98 02/03/23 08:00 FiO2 Intake & Output 02/02/23 02/03/23 02/03/23 18:59 06:59 18:59 Intake Total 300 Output Total 200 Balance 100 Intake: Oral 300 Output: Urine 200 Other: Voiding Method Toilet Urinal Urinal # Voids 3 # Bowel Movements 1 1 - Exam GENERAL: The patient is lying in bed and is not in acute distress. NEUROLOGICAL: Higher mental function: The patient is awake, alert, oriented to self, place and time. Patient is following commands. No aphasia and no neglect. Cranial nerves: The pupils are round, equal and reactive to light. Visual salgado are full to confrontation throughout. Extraocular movement is intact no nystagmus is noted. Facial sensation is normal to touch throughout. The facial strength is normal throughout. Has head and mouth tremor. Hearing is moderately decreased bilaterally to hand rub. Tongue is midline and moved [id number] without any difficulty. No dysarthria is noted. Shoulder shrug is normal bilaterally. Has resting tremor of the right upper extremity. Also has tremor with extension of bilateral arms. Motor: G. The strength is limited but lifting all extremities above gravity without focality. Normal tone and bulk. Has tremor with extending his hands and attempting to grab things. Has mild tremor of left upper at rest. Cerebellum: Normal finger to nose bilaterally. Sensation: Sensation is normal to touch throughout. Reflexes (right/left): 1+ throughout. Plantars are downgoing bilaterally. Some other workup during his hospital visit consisted of: Vitamin B-12 is 1367 folate is more than 20. Valproic level is 48.9. Carotid duplex was reported as there is antegrade flow in the vertebral arteries. The images and measurements suggest less than 25% stenosis of both internal carotid arteries. CT brain is reported as cerebral atrophy. No acute intracranial abnormality. No change. I personally reviewed the CT and there is no acute or subacute ischemia, no significant large and encephalomalacia or any bleed noted. I feel the patient has generalized atrophy and the ventricles do not seem more enlarged compared to atrophy. MR the brain is reported as moderate diffuse cerebral atrophy and chronic small vessel ischemic change. No MRI evidence for recent infarct. I personally reviewed the brain and there is no acute subacute ischemia. - Labs CBC & Chem 7: 02/03/23 03:56 02/03/23 03:56 Labs: Abnormal Lab Results - Last 24 Hours (Table) 02/02/23 02/02/23 02/03/23 Range/Units 16:42 20:45 03:56 WBC 4.21 L (4.50-10.00) X 10*3/uL RBC 3.40 L (4.40-5.60) X 10*6/uL Hgb 10.8 L (13.0-17.0) g/dL Hct 33.1 L (39.6-50.0) % MCV 97.4 H (80.0-97.0) fL RDW 15.1 H (11.5-14.5) % Plt Count 119 L (140-440) X 10*3/uL Carbon Dioxide (20.0-27.5) mmol/L Anion Gap (10.00-18.00) mmol/L Creatinine (0.6-1.5) mg/dL Est GFR (CKD-EPI)AfAm (60.0-200.0) Est GFR (CKD-EPI)NonAf (60.0-200.0) BUN/Creatinine Ratio (12.00-20.00) Ratio POC Glucose (mg/dL) 124 H 317 H (70-110) mg/dL ALT (10-49) U/L Total Protein (6.2-8.2) g/dL Albumin (3.8-4.9) g/dL Albumin/Globulin Ratio (1.60-3.17) g/dL 02/03/23 02/03/23 Range/Units 03:56 11:20 WBC (4.50-10.00) X 10*3/uL RBC (4.40-5.60) X 10*6/uL Hgb (13.0-17.0) g/dL Hct (39.6-50.0) % MCV (80.0-97.0) fL RDW (11.5-14.5) % Plt Count (140-440) X 10*3/uL Carbon Dioxide 32.0 H (20.0-27.5) mmol/L Anion Gap 8.70 L (10.00-18.00) mmol/L Creatinine 3.3 H (0.6-1.5) mg/dL Est GFR (CKD-EPI)AfAm 19.7 L (60.0-200.0) Est GFR (CKD-EPI)NonAf 17.0 L (60.0-200.0) BUN/Creatinine Ratio 6.35 L (12.00-20.00) Ratio POC Glucose (mg/dL) 133 H (70-110) mg/dL ALT 7 L (10-49) U/L Total Protein 4.9 L (6.2-8.2) g/dL Albumin 2.9 L (3.8-4.9) g/dL Albumin/Globulin Ratio 1.40 L (1.60-3.17) g/dL Assessment and Plan Assessment: This is a 77-year-old gentleman with history of Parkinson's disease, bipolar, end-stage renal disease on dialysis who presented because of falls and generalized weakness. Falls due to his Parkinson's disease. As well as I feel the patient has medication that would increase his tremors such as high dose of Depakote (for Bipolar) Parkinson's disease for years and the patient does not feel there is any benefit to the medication he is currently on End-stage renal disease on dialysis Generalized weakness and primary feels for past one year since ESRD on dialysis. But this also be attributed to his other factors in addition in addition to dialysis. Hypothyroidism Bipolar Hypothyroidism Polypharmacy Plan: He is currently on Sinemet 25-100mg 1 tab QID (home dose) and stopped and started him on 25-250 dose 1 tab tid. Recommend Gallito scan as outpatient to assess if truly essential vs Parkinson's disease. I feel his symptoms are more Parkinson's disease. No need for Primidone at this time since felt more Parkinson's disase. I went down on Depakote from 1500 to 1250 mg ER daily on 01/31/23 and can consider going down to 1000mg in a few days to assess no worsening in bipolar and improvement in tremor. Can consider going up on Lamictal if needed. Patient had a recent thyroid lab testing in January 2023 and the TSH was elevated. He is on Synthroid and we'll defer the management to the primary team PT and OT are consulted We'll defer the rest of medical management to primary team Recommend the patient follow up with a neurologist outpatient within 1-2 weeks The plan was discussed with the patient. Dr. Everett will start neurology service tomorrow A.M. Time with Patient: Less than 30
--- NOTE | 2023-02-03 16:02 | P.PN ---
Subjective Progress Note Date: 02/03/23 Follow-up for ESRD. Objective - Vital Signs Vital signs: Vital Signs Temp 98.8 F 02/03/23 14:00 Pulse 67 02/03/23 14:00 Resp 18 02/03/23 14:00 BP 106/61 02/03/23 14:00 Pulse Ox 98 02/03/23 14:00 FiO2 Intake & Output 02/02/23 02/03/23 02/03/23 18:59 06:59 18:59 Intake Total 300 Output Total 200 Balance 100 Intake: Oral 300 Output: Urine 200 Other: Voiding Method Toilet Urinal Urinal # Voids 3 # Bowel Movements 1 1 - Exam No acute distress S1-S2 heard Decreased breath sounds No edema - Labs CBC & Chem 7: 02/03/23 03:56 02/03/23 03:56 Labs: Abnormal Lab Results - Last 24 Hours (Table) 02/02/23 02/02/23 02/03/23 Range/Units 16:42 20:45 03:56 WBC 4.21 L (4.50-10.00) X 10*3/uL RBC 3.40 L (4.40-5.60) X 10*6/uL Hgb 10.8 L (13.0-17.0) g/dL Hct 33.1 L (39.6-50.0) % MCV 97.4 H (80.0-97.0) fL RDW 15.1 H (11.5-14.5) % Plt Count 119 L (140-440) X 10*3/uL Carbon Dioxide (20.0-27.5) mmol/L Anion Gap (10.00-18.00) mmol/L Creatinine (0.6-1.5) mg/dL Est GFR (CKD-EPI)AfAm (60.0-200.0) Est GFR (CKD-EPI)NonAf (60.0-200.0) BUN/Creatinine Ratio (12.00-20.00) Ratio POC Glucose (mg/dL) 124 H 317 H (70-110) mg/dL ALT (10-49) U/L Total Protein (6.2-8.2) g/dL Albumin (3.8-4.9) g/dL Albumin/Globulin Ratio (1.60-3.17) g/dL 02/03/23 02/03/23 Range/Units 03:56 11:20 WBC (4.50-10.00) X 10*3/uL RBC (4.40-5.60) X 10*6/uL Hgb (13.0-17.0) g/dL Hct (39.6-50.0) % MCV (80.0-97.0) fL RDW (11.5-14.5) % Plt Count (140-440) X 10*3/uL Carbon Dioxide 32.0 H (20.0-27.5) mmol/L Anion Gap 8.70 L (10.00-18.00) mmol/L Creatinine 3.3 H (0.6-1.5) mg/dL Est GFR (CKD-EPI)AfAm 19.7 L (60.0-200.0) Est GFR (CKD-EPI)NonAf 17.0 L (60.0-200.0) BUN/Creatinine Ratio 6.35 L (12.00-20.00) Ratio POC Glucose (mg/dL) 133 H (70-110) mg/dL ALT 7 L (10-49) U/L Total Protein 4.9 L (6.2-8.2) g/dL Albumin 2.9 L (3.8-4.9) g/dL Albumin/Globulin Ratio 1.40 L (1.60-3.17) g/dL Assessment and Plan Assessment: #1 ESRD TTS #2 history of falls unclear etiology. No evidence of hypotension. CT head negative #3 metabolic bone disease #5 anemia with chronic kidney disease #6 mild hyperkalemia resolved. Plan: #1 hemodialysis yesterday as per outpatient schedule. Next treatment on Saturday #2 ESRD medications
[2023-02-03 16:44] LABS: Glucose,Whole Blood 176 mg/dL (70-110)
[2023-02-03] MEDS: CARBIDOPA-LEVODOPA 25-250 MG 1 EACH TAB PO SCH (17:40)
[2023-02-03] MEDS: ATORVASTATIN 10 MG TAB PO SCH (21:09)
[2023-02-03] MEDS: FENOFIBRATE 54 MG TAB PO SCH (21:10)
[2023-02-03 21:15] LABS: Glucose,Whole Blood 293 mg/dL (70-110)
[2023-02-04 03:20] VITALS: TEMP 98.2
[2023-02-04] MEDS: LEVOTHYROXINE 50 MCG TAB PO SCH (05:35)
[2023-02-04] MEDS: LEVOTHYROXINE 100 MCG TAB PO SCH (05:35)
[2023-02-04] MEDS: INSULIN ASPART (NovoLOG) 100 UNIT/ML VIAL SQ SCH ×2 (06:22→12:05)
[2023-02-04 06:23] LABS: Glucose,Whole Blood 108 mg/dL (70-110)
[2023-02-04 07:37] VITALS: BP 127/74; PULSE 60; RESP 16
[2023-02-04] MEDS: CYANOCOBALAMIN 500 MCG TAB PO SCH (08:08)
[2023-02-04] MEDS: FOLIC ACID 1 MG TAB PO SCH (08:09)
[2023-02-04] MEDS: lamoTRIgine 100 MG TAB PO SCH (08:09)
[2023-02-04] MEDS: FERROUS SULFATE 325 MG TAB PO SCH (08:09)
[2023-02-04] MEDS: ESCITALOPRAM 20 MG TAB PO SCH (08:10)
[2023-02-04] MEDS: FAMOTIDINE 20 MG TAB PO SCH (08:10)
[2023-02-04] MEDS: CARBIDOPA-LEVODOPA 25-250 MG 1 EACH TAB PO SCH ×2 (08:10→12:05)
[2023-02-04] MEDS: DIVALPROEX ER 250 MG TAB.ER.24H PO SCH (08:12)
[2023-02-04] MEDS: HEPARIN SODIUM,PORCINE/PF 5,000 UNIT/0.5 ML SYRINGE SQ SCH (08:12)
[2023-02-04] MEDS: CLOTRIMAZOLE 1% CREAM 30 GM TUBE TOPICAL SCH (08:13)
--- NOTE | 2023-02-04 10:33 | P.DS ---
Providers Date of admission: 01/30/23 06:39 Expected date of discharge: 02/04/23 Attending physician: Kimberly Gerardo Consults: 01/30/23 06:39 Consult Physician Routine Consulting Provider: Jinny Chavez Consult Reason/Comments: esrd Do you want consulting provider notified?: Yes 01/30/23 16:43 Consult Physician Routine Consulting Provider: Kang Maurer Consult Reason/Comments: Falls/Parkinson Do you want consulting provider notified?: Yes Primary care physician: Kimberly Gerardo Hospital Course: HISTORY OF PRESENT ILLNESS This is a 77 year old male patient with past medical history of hypertension, hyperlipidemia, hypothyroidism, diabetes mellitus type 2, end-stage renal disease on hemodialysis Saturday, Parkinson's disease, bipolar disorder. Patient had a fall yesterday and ended up hitting his head that had another fall on 01/30. He denies having any loss of consciousness. Patient was brought into the emergency center by EMS for further evaluation. His initial vital signs were stable. Patient missed his dialysis on 01/29 due to weakness. EKG sinus rhythm with no acute ST changes. WBC 3.8. Hemoglobin 11.5, platelet count 160. Sodium 133, potassium 5.3, BUN 78 creatinine 5.22. Chloride 99, CO2 26. Blood sugar 103. Calcium 8.6. Total bilirubin 0.6, AST 30, ALT 7, alkaline phosphatase 46. Vitamin B12 1367. Folate greater than 20. Valproic acid 48.9. Treponema pallidum antibody nonreactive. Influenza A, influenza B, RSV, Covid 19 not detected. CAT scan of the brain showed cerebral atrophy. No acute intracranial abnormality. Patient admitted to the [facility] floor consult in place with nephrology and neurology. Patient has been maintained on his home medications. 01/31: Patient has been seen by therapies with recommendations for subacute rehab or home care but patient has declined need for either. Patient underwent dialysis yesterday and is scheduled for a second dialysis treatment today. Neurology has decreased Depakote from 1500 mg to 1250 mg daily and may consider going down to 1000 mg in a few days to assess if there is worsening bipolar and improvement of tremor. May consider going up on the Lamictal. No changes were made to his Sinemet. MRI of the brain has been ordered Carotid ultrasound reveals less than 25% stenosis of both internal carotid arteries. 02/01: MRI of the brain reveals moderate diffuse cerebral atrophy and mild chronic small vessel ischemic change. No evidence of recent infarct. Patient seen and followed by neurology. Neurology may decrease Depakote down to about thousand milligrams in a few days and going up on Lamictal if needed. Continue Sinemet at same dose. Plan for neurology follow-up in one to 2 weeks outpatient. 02/02: Patient is laying down in bed in no apparent distress, he has been followed by physical therapy and occupational therapy he was seen in consultation by neurology recommended to decrease the dose of Depakote I would not decrease below 1250 mg ,and increased siemt 25/100 mg po qid continue the dose of Lamictal , follow-up with the patient very closely, patient at this time is going for dialysis today, he is doing a bit better, we'll continue to follow the patient very closely. Hopefully home in the next 24 hours. 02/03: Patient is laying down in bed using his CPAP machine, he is denying any chest pain, shortness breath, he was dialyzed yesterday, I believe the patient is in agreement to go for a skilled nursing at this time, we'll consult psychotherapist social worker for possible [facility] skilled nursing rehab tomorrow morning, he shouldn't is to be maintained on the current treatment plan, he will continue to have physical therapy because of recurrent falls and because underlying Parkinson disease. 02/04: Patient is back on his normal dialysis schedule and next treatment is scheduled for tomorrow. No new neurological issues or concerns from neurology. Patient's home medications have been adjusted by neurology to include Sinemet and Depakote. Patient to follow-up with his neurologist in 1-2 weeks outpatient. Patient has been accepted at [facility] and will be discharged today in stable condition. DISCHARGE DIAGNOSES 1. Increasing weakness, multiple falls multifactorial secondary to worsening Parkinson's disease. 2. End-stage renal disease on HD Saturday. 3. Hyperkalemia secondary to end-stage renal disease. 4. Parkinson's disease. 5. Hypertension. 6. Hyperlipidemia. 7. Hypothyroidism. Recheck TSH in a couple weeks 8. Diabetes mellitus type 2. With recent A1c 7.0. 9. Bipolar disorder. 10. 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 Patient will be discharged to [facility] Greater than 35 minutes was utilized and coordinating patient's discharge. Impression and plan of care have been directed as dictated by the signing physician. Marci Morrell nurse practitioner acting as scribe for signing physician. Patient Condition at Discharge: Stable Plan - Discharge Summary Discharge Rx Participant: No New Discharge Prescriptions: New Carbidopa-Levodopa 25-250 mg [Sinemet 25-250 mg] 1 each PO TID@08,13,18 tab Acetaminophen Tab [Tylenol] 650 mg PO Q6HR PRN tab PRN Reason: Mild Pain Or Fever > 100.5 Continue Lovastatin [Mevacor] 40 mg PO HS Levothyroxine Sodium [Synthroid] 200 mcg PO DAILY Escitalopram [Lexapro] 20 mg PO QAM Fenofibrate 54 mg PO HS Ferrous Sulfate [Iron (65 MG Elemental)] 325 mg PO DAILY Folic Acid 0.4 mg PO DAILY Levothyroxine Sodium [Synthroid] 50 mcg PO MOTUWETHFRSA Insulin Lispro [humaLOG Kwikpen] See Protocol SQ AC-TID PRN PRN Reason: Blood Sugar - High Ketoconazole 2% Cream [Nizoral 2%] 1 applic TOPICAL DAILY lamoTRIgine [LaMICtal] 150 mg PO DAILY Lidocaine-Prilocaine Cream [Emla Cream 2.5%/2.5%] 1 applic TOPICAL DIRECTED Levothyroxine Sodium [Synthroid] 75 mcg PO YUN Cyanocobalamin (Vitamin B-12) [Vitamin B-12] 1,000 mcg PO DAILY Changed Divalproex ER [Depakote ER] 1,250 mg PO DAILY #0 Discontinued Carbidopa/Levodopa [Carbidopa-Levodopa 25-100 Tab] 1 tab PO QID Discharge Medication List Levothyroxine Sodium [Synthroid] 200 mcg PO DAILY 01/29/16 [History] Lovastatin [Mevacor] 40 mg PO HS 01/29/16 [History] Escitalopram [Lexapro] 20 mg PO QAM 11/06/19 [History] Fenofibrate 54 mg PO HS 02/19/22 [History] Insulin Lispro [humaLOG Kwikpen] See Protocol SQ AC-TID PRN 08/30/22 [History] Cyanocobalamin (Vitamin B-12) [Vitamin B-12] 1,000 mcg PO DAILY 01/30/23 [History] Ferrous Sulfate [Iron (65 MG Elemental)] 325 mg PO DAILY 01/30/23 [History] Folic Acid 0.4 mg PO DAILY 01/30/23 [History] Ketoconazole 2% Cream [Nizoral 2%] 1 applic TOPICAL DAILY 01/30/23 [History] Levothyroxine Sodium [Synthroid] 50 mcg PO MOTUWETHFRSA 01/30/23 [History] Levothyroxine Sodium [Synthroid] 75 mcg PO YUN 01/30/23 [History] Lidocaine-Prilocaine Cream [Emla Cream 2.5%/2.5%] 1 applic TOPICAL DIRECTED 01/30/23 [History] lamoTRIgine [LaMICtal] 150 mg PO DAILY 01/30/23 [History] Acetaminophen Tab [Tylenol] 650 mg PO Q6HR PRN tab 02/04/23 [Rx] Carbidopa-Levodopa 25-250 mg [Sinemet 25-250 mg] 1 each PO TID@08,13,18 tab 02/04/23 [Rx] Divalproex ER [Depakote ER] 1,250 mg PO DAILY #0 02/04/23 [Rx] Follow up Appointment(s)/Referral(s): Kimberly Gerardo MD [Primary Care Provider] - 1 Week (AT [facility]) Discharge Disposition: TRANSFER TO SNF/F
--- NOTE | 2023-02-04 10:34 | P.PN ---
Subjective Progress Note Date: 02/04/23 Patient initially seen by Dr. Kang Maurer. Please refer to his note for details. I would defer impression and plan to Dr. Kang Maurer report. Patient is a 77-year-old male came to the hospital with possible Parkinson's. Dr. Kang Maurer has increased the dose of Sinemet from 25/100 to 50/250 3 times a day. Patient is tolerating medication well, offers no side effects. He is sleeping with his CPAP on. I woke him up, and he appeared comfortable. Offered no complaints. He is doing well with the higher dose of Sinemet. Some other workup during his hospital visit consisted of: Vitamin B-12 is 1367 folate is more than 20. Valproic level is 48.9. Carotid duplex was reported as there is antegrade flow in the vertebral arteries. The images and measurements suggest less than 25% stenosis of both internal carotid arteries. CT brain is reported as cerebral atrophy. No acute intracranial abnormality. No change. MR the brain is reported as moderate diffuse cerebral atrophy and chronic small vessel ischemic change. No MRI evidence for recent infarct. I personally reviewed the brain and there is no acute subacute ischemia. I agree there is evidence of significant generalized atrophy, with no significant prominence of the ventricles. No acute process. Objective - Vital Signs Vital signs: Vital Signs Temp 98.2 F 02/04/23 03:19 Pulse 60 02/04/23 07:00 Resp 16 02/04/23 07:00 BP 127/74 02/04/23 07:00 Pulse Ox 98 02/04/23 07:00 FiO2 Intake & Output 02/03/23 02/04/23 02/04/23 18:59 06:59 18:59 Output Total 350 Balance -350 Output: Urine 350 Other: Voiding Method Urinal # Voids 3 - Exam Patient's tone appears normal. No significant tremors. - Labs CBC & Chem 7: 02/03/23 03:56 02/03/23 03:56 Labs: Abnormal Lab Results - Last 24 Hours (Table) 02/03/23 02/03/23 02/03/23 Range/Units 11:20 16:43 21:07 POC Glucose (mg/dL) 133 H 176 H 293 H (70-110) mg/dL Assessment and Plan Assessment: This is a 77-year-old gentleman with history of Parkinson's disease, bipolar, end-stage renal disease on dialysis who presented because of falls and generalized weakness. Falls due to his Parkinson's disease. As well as I feel the patient has medication that would increase his tremors such as high dose of Depakote (for Bipolar) Parkinson's disease for years and the patient does not feel there is any benefit to the medication he is currently on End-stage renal disease on dialysis Generalized weakness and primary feels for past one year since ESRD on dialysis. But this also be attributed to his other factors in addition in addition to dialysis. Hypothyroidism Bipolar Hypothyroidism Polypharmacy Plan: He is currently on Sinemet 25-100mg 1 tab QID (home dose). Dr. Kang Maurer has increased dose and started him on Sinemet 25-250 dose 1 tab tid. Patient is tolerating higher dose of medication well. Recommend Gallito scan as outpatient to assess if truly essential vs Parkinson's disease. I feel his symptoms are more Parkinson's disease. No need for Primidone at this time since felt more Parkinson's disase. I went down on Depakote from 1500 to 1250 mg ER daily on 01/31/23 and can consider going down to 1000mg in a few days to assess no worsening in bipolar and improvement in tremor. Can consider going up on Lamictal if needed. Patient had a recent thyroid lab testing in January 2023 and the TSH was elevated. He is on Synthroid and we'll defer the management to the primary team PT and OT are consulted We'll defer the rest of medical management to primary team Recommend the patient follow up with a neurologist outpatient within 1-2 weeks Patient going to rehab facility later today.
--- NOTE | 2023-02-04 10:59 | P.PN ---
Subjective Patient is seen in follow-up for end-stage renal disease. Resting in bed. Denies chest pain or shortness of breath. No problems with dialysis and Saturday. Vital signs are stable. General: No acute distress. HEENT: Head exam is unremarkable. Wearing CPAP. LUNGS: No audible rhonchi or wheezes. HEART: Rate and Rhythm are regular. ABDOMEN: No distention. Nontender. EXTREMITITES: No edema. Objective - Vital Signs Vital signs: Vital Signs Temp 98.2 F 02/04/23 03:19 Pulse 60 02/04/23 07:00 Resp 16 02/04/23 10:11 BP 127/74 02/04/23 07:00 Pulse Ox 98 02/04/23 07:00 FiO2 Intake & Output 02/03/23 02/04/23 02/04/23 18:59 06:59 18:59 Output Total 350 Balance -350 Output: Urine 350 Other: Voiding Method Urinal Urinal # Voids 3 - Labs CBC & Chem 7: 02/03/23 03:56 02/03/23 03:56 Labs: Abnormal Lab Results - Last 24 Hours (Table) 02/03/23 02/03/23 02/03/23 Range/Units 11:20 16:43 21:07 POC Glucose (mg/dL) 133 H 176 H 293 H (70-110) mg/dL Assessment and Plan Plan: Assessment: 1. End-stage renal disease maintained on hemodialysis on Saturday schedule. 2. History of falls. 3. Anemia of chronic kidney disease. Hemoglobin at goal. Plan: Hemodialysis tomorrow. Plan for discharge today.
[2023-02-04 11:42] LABS: Glucose,Whole Blood 158 mg/dL (70-110)
== END 2023-02-04 14:06 | DRG 56 ==
LOC: EC 04:34 → 4SSUR 06:39
PROVIDERS: ADMIT Internal Medicine; ATTEND Internal Medicine
PROC: 5A1D70Z Performance of Urinary Filtration, Intermittent, Less than 6 Hours Per Day (ICD-10-PCS; principal; 2023-01-30)
PROC: B246ZZ4 Ultrasonography of Right and Left Heart, Transesophageal (ICD-10-PCS; 2023-01-31)
DX: G20 Parkinson's disease (principal); N18.6 End stage renal disease; I12.0 Hypertensive chronic kidney disease with stage 5 chronic kidney disease or end stage renal disease; Z20.822 Contact with and (suspected) exposure to COVID-19; D63.1 Anemia in chronic kidney disease; R29.6 Repeated falls; R53.1 Weakness; Z91.81 History of falling; E03.9 Hypothyroidism, unspecified; E11.22 Type 2 diabetes mellitus with diabetic chronic kidney disease; E87.5 Hyperkalemia; E78.5 Hyperlipidemia, unspecified; Z79.890 Hormone replacement therapy; F31.9 Bipolar disorder, unspecified; F41.9 Anxiety disorder, unspecified; G25.0 Essential tremor; H91.90 Unspecified hearing loss, unspecified ear; M89.8X9 Other specified disorders of bone, unspecified site; S09.90XA Unspecified injury of head, initial encounter; S41.111A Laceration without foreign body of right upper arm, initial encounter; W19.XXXA Unspecified fall, initial encounter; Z79.4 Long term (current) use of insulin; G31.89 Other specified degenerative diseases of nervous system; I08.1 Rheumatic disorders of both mitral and tricuspid valves; D63.8 Anemia in other chronic diseases classified elsewhere; R01.1 Cardiac murmur, unspecified; Z79.899 Other long term (current) drug therapy; Z98.42 Cataract extraction status, left eye; Z83.3 Family history of diabetes mellitus; Z99.2 Dependence on renal dialysis
CPT/HCPCS: 36415; 70450; 70551; 80053; 80164; 82607; 82746; 85025; 85652; 86780; 87635; 87636; 90935; 93005; 93306; 93880; 99285

== ENCOUNTER 2023-06-21 14:24 | Emergency (ER) | payer MEDICARE, BC ==
--- NOTE | 2023-06-21 16:37 | XR ---
EXAMINATION TYPE: XR foot complete RT DATE OF EXAM: 06/21/2023 4:32 PM INDICATION: Patient age:Male; 77 years old; Reason for study: injury; COMPARISON: None TECHNIQUE: The right foot was examined in the AP, oblique, and lateral projections. FINDINGS: Multifocal degeneration changes throughout the joints of the foot most pronounced in the in terphalangeal joints and the intertarsal joints. There is calcaneal plantar spurring present. No evidence of any acute osseous pathology. No evidence of soft tissue swelling. Joints are preserve d. IMPRESSION: 1. No evidence of acute fracture. 2. Moderate multilevel focal degeneration changes of the joints of the foot.
--- NOTE | 2023-06-21 16:47 | XR ---
EXAMINATION TYPE: XR Hip RT and AP Pelvis DATE OF EXAM: 06/21/2023 4:32 PM INDICATION: Patient age:Male; 77 years old; Reason for study: fall, pain; PHH. COMPARISON: 12/31/2019 TECHNIQUE: The right hip was examined in the frontal and lateral projections and a AP pelvis. FINDINGS: No evidence for acute process, joint dislocation or significant soft tissue swelling. Osteo phyte formation of the superior acetabulum of the hips. There is joint space narrowing. Multilevel de generation changes of the spine. Left lower abdomen and pelvic surgical clips. Well corticated body o f the ischium likely from hamstring tendinopathy versus prior injury. IMPRESSION: 1. No evidence for acute process. 2. Mild to moderate hip osteoarthrosis. This has mildly progressed from prior in 2019.
[2023-06-21] MEDS ORDERED: LIDOCAINE 5% PATCH TOPICAL STA (17:31)
[2023-06-21] MEDS ORDERED: ACET/COD 300 MG/30 MG STARTER PACK 6 TAB BTL PO STA (17:31)
--- NOTE | 2023-06-21 17:38 | ED ---
Fall HPI - General Chief Complaint: Fall Stated Complaint: right foot injury Time Seen by Provider: 06/21/23 16:06 Source: patient Mode of arrival: ambulatory - History of Present Illness Initial Comments: Patient is 77-year-old male who presents the emergency department for right leg and foot pain after fall 4 days ago. Patient fell out of bed while sleeping. He landed on his right leg. He denies hitting his head. No blood use. No headache, visual symptoms, nausea, vomiting. Patient has bruising and pain to the top of right foot. He has pain to his right inner thigh which worsens with walking. He denies numbness and tingling. Taking Tylenol and Motrin with some relief - Related Data Home Medications Medication Instructions Recorded Confirmed Levothyroxine Sodium [Synthroid] 200 mcg PO DAILY 01/29/16 01/30/23 Lovastatin [Mevacor] 40 mg PO HS 01/29/16 01/30/23 Escitalopram [Lexapro] 20 mg PO QAM 11/06/19 01/30/23 Fenofibrate 54 mg PO HS 02/19/22 01/30/23 Insulin Lispro [humaLOG Kwikpen] See Protocol SQ AC-TID PRN 08/30/22 01/30/23 Cyanocobalamin (Vitamin B-12) 1,000 mcg PO DAILY 01/30/23 01/30/23 [Vitamin B-12] Ferrous Sulfate [Iron (65 MG 325 mg PO DAILY 01/30/23 01/30/23 Elemental)] Folic Acid 0.4 mg PO DAILY 01/30/23 01/30/23 Ketoconazole 2% Cream [Nizoral 2%] 1 applic TOPICAL DAILY 01/30/23 01/30/23 Levothyroxine Sodium [Synthroid] 50 mcg PO MOTUWETHFRSA 01/30/23 01/30/23 Levothyroxine Sodium [Synthroid] 75 mcg PO YUN 01/30/23 01/30/23 Lidocaine-Prilocaine Cream [Emla 1 applic TOPICAL DIRECTED 01/30/23 01/30/23 Cream 2.5%/2.5%] lamoTRIgine [LaMICtal] 150 mg PO DAILY 01/30/23 01/30/23 Previous Rx's Medication Instructions Recorded Acetaminophen Tab [Tylenol] 650 mg PO Q6HR PRN tab 02/04/23 Carbidopa-Levodopa 25-250 mg 1 each PO TID@08,,18 tab 02/04/23 [Sinemet 25-250 mg] Divalproex ER [Depakote ER] 1,250 mg PO DAILY #0 02/04/23 Lidocaine 5% Patch [Lidoderm 5% 1 patch TOPICAL DAILY PRN #7 patch 06/21/23 Patch] Allergies Allergy/AdvReac Type Severity Reaction Status Date / Time No Known Allergies Allergy Verified 06/21/23 15:26 Review of Systems ROS Statement: Those systems with pertinent positive or pertinent negative responses have been documented in the HPI. ROS Other: All systems not noted in ROS Statement are negative. Past Medical History Past Medical History: Diabetes Mellitus, Hearing Disorder / Deafness, Hyperlipidemia, Osteoarthritis (OA), Renal Disease, Sleep Apnea/CPAP/BIPAP, Thyroid Disorder Additional Past Medical History / Comment(s): Heart murmer, Parkinson's, CPAP use, hard of hearing. History of Any Multi-Drug Resistant Organisms: None Reported Past Surgical History: Orthopedic Surgery, Tonsillectomy Additional Past Surgical History / Comment(s): Bilateral knee surgery, left foot bone spur, right cataract removed, left shoulder arthroscopy, peritoneal dialysis catheter placed. Past Anesthesia/Blood Transfusion Reactions: No Reported Reaction Past Psychological History: Anxiety, Bipolar, Depression Smoking Status: Former smoker Past Alcohol Use History: None Reported Past Drug Use History: None Reported - Past Family History Father Family Medical History: Cancer Mother Additional Family Medical History / Comment(s): Mother at age 74 from heart failure. Brother(s) Additional Family Medical History / Comment(s): Patient has one brother and one sister both have diabetes. Patient's 3 children with no major medical problems. General Exam Limitations: no limitations General appearance: alert Eye exam: Present: normal appearance, PERRL, EOMI. Absent: scleral icterus, conjunctival injection, periorbital swelling Respiratory exam: Present: normal lung sounds bilaterally. Absent: respiratory distress, wheezes, rales, rhonchi, stridor Cardiovascular Exam: Present: regular rate, normal rhythm, normal heart sounds. Absent: systolic murmur, diastolic murmur, rubs, gallop, clicks Extremities exam: Present: full ROM, tenderness (Right inner thigh, dorsal right middle foot. Neurovascularly intact. Full range of motion), normal capillary refill, other (Ecchymosis dorsal aspect of right midfoot) Neurological exam: Present: alert Psychiatric exam: Present: normal affect, normal mood Skin exam: Present: warm, dry, intact, normal color. Absent: rash Course Vital Signs 06/21/23 17:51 Temperature 97.8 F Pulse Rate 71 Respiratory 18 Rate Blood Pressure 134/79 O2 Sat by Pulse 99 Oximetry Medical Decision Making - Medical Decision Making Was pt. sent in by a medical professional or institution (DIANE Richard, LEAD WEB DEVELOPER, urgent care, hospital, or long term...) When possible be specific @ -No Did you speak to anyone other than the patient for history (EMS, parent, family, police, friend...)? What history was obtained from this source @ -No Did you review nursing and triage notes (agree or disagree)? Why? @ -I reviewed and agree with nursing and triage notes Were old charts reviewed (outside hosp., previous admission, EMS record, old EKG, old radiological studies, urgent care reports/EKG's, long term records)? Report findings @ -No old charts were reviewed Differential Diagnosis (chest pain, altered mental status, abdominal pain women, abdominal pain men, vaginal bleeding, weakness, fever, dyspnea, syncope, headache, dizziness, GI bleed, back pain, seizure, CVA, palpatations, mental health)? @ -Right foot fracture, right foot sprain, leg strain. This list is not meant to be all-inclusive EKG interpreted by me (3pts min.). @ -As above X-rays interpreted by me (1pt min.). @ -Right hip and pelvis x-ray shows no evidence of acute process. Right foot x-ray shows no evidence of fracture. CT interpreted by me (1pt min.). @ -None done U/S interpreted by me (1pt. min.). @ -None done What testing was considered but not performed or refused? (CT, X-rays, U/S, labs)? Why? @ -None What meds were considered but not given or refused? Why? @ -None Did you discuss the management of the patient with other professionals (professionals i.e. DIANE Richard, LEAD WEB DEVELOPER, lab, RT, psych nurse, social insurance specialist, military lawyer, teacher, student officer, child welfare caseworker)? Give summary @ -No Was smoking cessation discussed for >3mins.? @ -No Was critical care preformed (if so, how long)? @ -No Were there social determinants of health that impacted care today? How? (Homelessness, low income, unemployed, alcoholism, drug addiction, transportation, low edu. Level, literacy, decrease access to med. care, prison, rehab)? @ -No Was there de-escalation of care discussed even if they declined (Discuss DNR or withdrawal of care, Hospice)? DNR status @ -No What co-morbidities impacted this encounter? (DM, HTN, Smoking, COPD, CAD, Cancer, CVA, ARF, Chemo, Hep., AIDS, mental health diagnosis, sleep apnea, morbid obesity)? @ -None Was patient admitted / discharged? Hospital course, mention meds given and route, prescriptions, significant lab abnormalities, going to OR and other pertinent info. @ -Patient presenting with leg and foot pain after fall. X-ray interpreted by myself no evidence of right hip, pelvis, foot fracture. I suspect right foot sprain and strain of right groin. Patient is neurovascularly intact. He does have full range of motion. Gait observed and normal. Pain controlled. Results discussed with patient. We discussed symptomatic care in detail. Patient will be discharged with Tylenol 3 starter pack for pain. We discussed sedating properties of Tylenol 3. Patient states his daughter is at home to help him recover. He has an appointment with his primary care provider tomorrow. Patient discharged in stable condition Undiagnosed new problem with uncertain prognosis? @ -No Drug Therapy requiring intensive monitoring for toxicity (Heparin, Nitro, Insulin, Cardizem)? @ -No Were any procedures done? @ -No Diagnosis/symptom? @Right foot sprain, right groin strain Acute, or Chronic, or Acute on Chronic? @ -[Acute Uncomplicated (without systemic symptoms) or Complicated (systemic symptoms)? @ -Uncomplicated Side effects of treatment? @ -No] Exacerbation, Progression, or Severe Exacerbation? @ -[No] Poses a threat to life or bodily function? How? (Chest pain, USA, MT, pneumonia, PE, COPD, DKA, ARF, appy, cholecystitis, CVA, Diverticulitis, Homicidal, Suicidal, threat to staff... and all critical care pts) @No Dr. Jameson is my attending Disposition Clinical Impression: Right foot sprain, Strain of right groin Disposition: HOME SELF-CARE Condition: Good Instructions (If sedation given, give patient instructions): Fall Prevention for Older Adults (ED), P.R.I.C.E. Treatment (ED) Additional Instructions: Continue to alternate Tylenol and Motrin for pain. Save Tylenol 3 for severe pain. Do not drink alcohol or operate machinery while taking Tylenol 3 as it can cause drowsiness. Please use help standing and walking while on Tylenol 3 due to its sedating effects. Use lidocaine patch as needed for pain. Apply war m compress to injury. Follow-up with primary care provider in 1-2 days. Return to the emergency department experience new, concerning, or worsening symptoms Prescriptions: Lidocaine 5% Patch [Lidoderm 5% Patch] 1 patch TOPICAL DAILY PRN #7 patch PRN Reason: Pain Is patient prescribed a controlled substance at d/c from ED?: No Referrals: Kimberly Gerardo MD [Primary Care Provider] - 1-2 days
[2023-06-21 17:52] VITALS: BP 134/79; PULSE 71; RESP 18; TEMP 97.8
== END 2023-06-21 18:04 | disposition home or self-care (01) ==
LOC: EC 14:24
DX: S93.601A Unspecified sprain of right foot, initial encounter (principal); S39.011A Strain of muscle, fascia and tendon of abdomen, initial encounter; E11.36 Type 2 diabetes mellitus with diabetic cataract; E78.5 Hyperlipidemia, unspecified; M16.11 Unilateral primary osteoarthritis, right hip; E07.9 Disorder of thyroid, unspecified; F41.9 Anxiety disorder, unspecified; F31.9 Bipolar disorder, unspecified; Z87.891 Personal history of nicotine dependence; Z79.890 Hormone replacement therapy; Z79.4 Long term (current) use of insulin; Z79.899 Other long term (current) drug therapy; W06.XXXA Fall from bed, initial encounter
CPT/HCPCS: 73502; 99284

== ENCOUNTER → 2023-06-25 | Outpatient (CLI) | payer MEDICARE, BC ==
--- NOTE | 2023-06-25 12:28 | CT ---
EXAMINATION TYPE: CT lumbar spine wo con CT DLP: 978 mGycm, Automated exposure control for dose reduction was used. DATE OF EXAM: 06/25/2023 12:04 PM COMPARISON: MRI lumbar spine 11/30/2022. CLINICAL INDICATION:Male, 77 years old with history of M43.16 SPONDYLOLISIS; PHH, spondylosis TECHNIQUE: Multiple axial images were obtained from the midportion of T11 through the sacroiliac jimmy nts. Soft tissue and bone windows in coronal and sagittal planes were obtained and reviewed. FINDINGS: Alignment: There are 5 lumbar type vertebral bodies within normal alignment. Bone: No evidence of fracture is identified. Degenerative changes of both SI joints. Discs: Multilevel Schmorl's nodes identified. Multilevel degenerative disc disease with disc space na rrowing, endplate sclerosis, vacuum disc disease, and anterior osteophytosis. T12-L1: No spinal canal or neural foraminal stenosis is identified. L1-L2: Minimal broad-based disc bulge without significant effacement of the anterior thecal sac. Bila teral facet arthropathy. The neural foramen are patent bilaterally. L2-L3: Broad-based disc bulge with bilateral ligament of flavum buckling facet arthropathy contributi ng to mild central canal stenosis. Mild bilateral neural foraminal stenosis. L3-L4: Broad-based disc bulge with ligamentum flavum buckling and bilateral facet arthropathy contrib ely [place] to moderate central canal stenosis. Mild to moderate bilateral neural foraminal stenosis. L4-L5: Broad-based disc bulge with ligamentum flavum buckling and bilateral facet arthropathy contri bute to hktk-[id number] central canal stenosis. Moderate bilateral neural foraminal stenosis. L5-S1: Eccentric left disc bulge with mild effacement of anterior thecal sac. Bilateral facet arthrop athy. Moderate bilateral neural foraminal stenosis. Other: Atherosclerotic calcification of the aorta and its branches. Bilateral renal cysts. Largest vi sualized within the inferior pole the left kidney measures up to 2.3 cm. IMPRESSION: 1. No evidence of fracture of the lumbar spine. 2. Moderate multilevel degenerative disc disease and facet arthropathy as described above. This is mo st prominent at L3-L4 and L4-L5
== END | disposition home or self-care (01) ==
LOC: RADCTMAIN 11:41
PROVIDERS: ATTEND Orthopaedic Surgery
DX: M51.36 Other intervertebral disc degeneration, lumbar region (principal); M47.816 Spondylosis without myelopathy or radiculopathy, lumbar region; M43.16 Spondylolisthesis, lumbar region; M99.73 Connective tissue and disc stenosis of intervertebral foramina of lumbar region; M99.74 Connective tissue and disc stenosis of intervertebral foramina of sacral region; M48.061 Spinal stenosis, lumbar region without neurogenic claudication
CPT/HCPCS: 72131

== ENCOUNTER 2023-07-01 20:11 | Emergency (ER) | payer MEDICARE, BC ==
[2023-07-01 20:19] VITALS: RESP 18; TEMP 98.5
[2023-07-01 21:57] LABS: Basophils % (A) 0 %; Eosinophils % (A) 1 %; HCT 34.5 % (39.0-53.0); HGB 11.4 gm/dL (13.0-17.5); Lymphocytes # (A) 0.6 k/uL (1.0-4.8); Lymphocytes % (A) 17 %; MCHC 32.9 g/dL (31.0-37.0); MCV 94.3 fL (80.0-100.0); Mean Platelet Volume 7.2; Monocytes # (A) 0.1 k/uL (0-1.0); Monocytes % (A) 3 %; Neutrophils # (A) 2.9 k/uL (1.3-7.7); Neutrophils % (A) 77 %; Platelet Count 154 k/uL (150-450); RBC 3.66 m/uL (4.30-5.90); RDW 14.2 % (11.5-15.5); WBC 3.8 k/uL (3.8-10.6)
[2023-07-01 22:03] LABS: ALT 8 U/L (4-49); AST 24 U/L (17-59); African American GFR (CKD) 18 (>60 ml/min/1.73 sqM); Albumin 3.3 g/dL (3.5-5.0); Alkaline Phosphatase 62 U/L (38-126); Anion Gap 5 mmol/L; Blood Urea Nitrogen 48 mg/dL (9-20); Calcium 8.9 mg/dL (8.4-10.2); Carbon Dioxide 36 mmol/L (22-30); Chloride 93 mmol/L (98-107); Glucose 318 mg/dL (74-99); Non-African American GFR(CKD) 16 (>60 ml/min/1.73 sqM); Potassium 4.6 mmol/L (3.5-5.1); Sodium 134 mmol/L (137-145); Total Bilirubin 0.4 mg/dL (0.2-1.3); Total Protein 6.1 g/dL (6.3-8.2)
[2023-07-01] MEDS ORDERED: KETOROLAC 15 MG/ML 1 ML VIAL IVP STA (23:19)
[2023-07-01] MEDS ORDERED: MORPHINE SULFATE 2 MG/ML SYRINGE IVP STA (23:19)
--- NOTE | 2023-07-02 00:17 | CT ---
EXAMINATION TYPE: CT abdomen pelvis wo con DATE OF EXAM: 07/02/2023 HISTORY: 2-3 days stabbing right flank pain,hx of kidney failure, currently on dialysis CT DLP: 787 mGycm. Automated Exposure Control for Dose Reduction was Utilized. TECHNIQUE: CT scan of the abdomen and pelvis is performed without oral or IV contrast. COMPARISON: NONE FINDINGS: Within the limitations of a non-contrast study, the following observations are made. LUNG BASES: Bilateral gynecomastia is seen. Focal calcification at level of the aortic valve is noted LIVER/GB: No significant abnormality is appreciated. PANCREAS: No significant abnormality is seen. SPLEEN: No significant abnormality is seen. ADRENALS: No significant abnormality is seen. KIDNEYS: Cortical thinning bilaterally with scattered simple-appearing thin-walled cysts. Findings co nsistent with product of chronic medical renal disease. There is 2 mm nonobstructing calculus midpole right kidney coronal image 68. No hydronephrosis is seen bilaterally. BOWEL: Appendix within normal limits for base of cecum. Diffuse colonic diverticulosis. No convincing CT evidence for acute diverticulitis. Moderate fecal prominence in the rectum. No abnormal small or large bowel dilatation. GENITAL ORGANS: No gross abnormality seen. LYMPH NODES: No greater than 1cm abdominal or pelvic lymph nodes are appreciated. OSSEOUS STRUCTURES: Moderate narrowing and spurring about both hip joints. Some narrowing in the bila teral sacroiliac joints. Multilevel spurring and some bridging osteophytes in the thoracolumbar spine . Multilevel disc space narrowing with multilevel vacuum disc phenomenon. OTHER: Moderate calcified plaque of the aorta extends into branch vessels. IMPRESSION: 1. There is 2 mm nonobstructing right renal calculus. No hydronephrosis or obstructing renal calculi seen bilaterally. Evidence of chronic medical renal disease is noted bilaterally. 2. Diffuse colonic diverticulosis without convincing CT evidence for acute diverticulitis. 3. No acute finding clearly seen on this study to account for patient's symptoms of stabbing right-si ded flank pain.
[2023-07-02] MEDS ORDERED: MORPHINE SULFATE 2 MG/ML SYRINGE IVP STA (00:39)
--- NOTE | 2023-07-02 00:54 | ED ---
General Adult HPI - General Chief complaint: Back Pain/Injury Stated complaint: Back pain Time Seen by Provider: 07/01/23 22:44 Source: patient, RN notes reviewed, old records reviewed Mode of arrival: wheelchair Limitations: no limitations - History of Present Illness Initial comments: Patient is a 77-year-old male presents emergency Department complaining of right flank pain. Started 2 days ago. Does have history of chronic lower back pain. Denies any lower extremity numbness, saddle anesthesias, urinary or bowel incontinence or retention. Does have a history of ESRD, Parkinson's. Receives dialysis and has not missed any runs. He relates with a walker at baseline. States the pain has not really move much from his right flank. Worse with movement as well as on palpation. Denies any constipation or diarrhea. Denies any chest pain, shortness breath, cough, fevers, chills. No other acute complaints at this time. Presents complaining of the 2 days of pain. Workup was started in triage. - Related Data Home Medications Medication Instructions Recorded Confirmed Levothyroxine Sodium [Synthroid] 200 mcg PO DAILY 01/29/16 01/30/23 Lovastatin [Mevacor] 40 mg PO HS 01/29/16 01/30/23 Escitalopram [Lexapro] 20 mg PO QAM 11/06/19 01/30/23 Fenofibrate 54 mg PO HS 02/19/22 01/30/23 Insulin Lispro [humaLOG Kwikpen] See Protocol SQ AC-TID PRN 08/30/22 01/30/23 Cyanocobalamin (Vitamin B-12) 1,000 mcg PO DAILY 01/30/23 01/30/23 [Vitamin B-12] Ferrous Sulfate [Iron (65 MG 325 mg PO DAILY 01/30/23 01/30/23 Elemental)] Folic Acid 0.4 mg PO DAILY 01/30/23 01/30/23 Ketoconazole 2% Cream [Nizoral 2%] 1 applic TOPICAL DAILY 01/30/23 01/30/23 Levothyroxine Sodium [Synthroid] 50 mcg PO MOTUWETHFRSA 01/30/23 01/30/23 Levothyroxine Sodium [Synthroid] 75 mcg PO YUN 01/30/23 01/30/23 Lidocaine-Prilocaine Cream [Emla 1 applic TOPICAL DIRECTED 01/30/23 01/30/23 Cream 2.5%/2.5%] lamoTRIgine [LaMICtal] 150 mg PO DAILY 01/30/23 01/30/23 Previous Rx's Medication Instructions Recorded Acetaminophen Tab [Tylenol] 650 mg PO Q6HR PRN tab 02/04/23 Carbidopa-Levodopa 25-250 mg 1 each PO TID@08,13,18 tab 02/04/23 [Sinemet 25-250 mg] Divalproex ER [Depakote ER] 1,250 mg PO DAILY #0 02/04/23 Lidocaine 5% Patch [Lidoderm 5% 1 patch TOPICAL DAILY PRN #7 patch 06/21/23 Patch] Cyclobenzaprine [Flexeril] 5 mg PO BID PRN 7 Days #14 tablet 07/02/23 Allergies Allergy/AdvReac Type Severity Reaction Status Date / Time No Known Allergies Allergy Verified 06/21/23 15:26 Review of Systems ROS Statement: Those systems with pertinent positive or pertinent negative responses have been documented in the HPI. Review of Systems: CONST: Denies fever EYES: Denies blurry vision ENT: Denies nasal congestion C/V: Denies Chest pain RESP: Denies shortness of breath GI: Endorses right flank pain : Denies dysuria SKIN: Denies rash. MSK: Denies joint pain. NEURO: Denies headache ROS Other: All systems not noted in ROS Statement are negative. Past Medical History Past Medical History: Diabetes Mellitus, Hearing Disorder / Deafness, Hyperlipidemia, Osteoarthritis (OA), Renal Disease, Sleep Apnea/CPAP/BIPAP, Thyroid Disorder Additional Past Medical History / Comment(s): Heart murmer, Parkinson's, CPAP use, hard of hearing. History of Any Multi-Drug Resistant Organisms: None Reported Past Surgical History: Orthopedic Surgery, Tonsillectomy Additional Past Surgical History / Comment(s): Bilateral knee surgery, left foot bone spur, right cataract removed, left shoulder arthroscopy, peritoneal dialysis catheter placed. Past Anesthesia/Blood Transfusion Reactions: No Reported Reaction Past Psychological History: Anxiety, Bipolar, Depression Smoking Status: Former smoker Past Alcohol Use History: None Reported Past Drug Use History: None Reported - Past Family History Father Family Medical History: Cancer Mother Additional Family Medical History / Comment(s): Mother at age 74 from heart failure. Brother(s) Additional Family Medical History / Comment(s): Patient has one brother and one sister both have diabetes. Patient's 3 children with no major medical problems. General Exam - General Exam Comments Initial Comments: General: Appears in mild distress. HEAD: Normal with no signs of head trauma. EYES: PERRLA, EOMI, conjunctiva normal, no discharge. ENT: Hearing grossly intact, normal oropharynx. RESPIRATORY: Clear breath sounds bilaterally. No wheezes, rales, or rhonchi. C/V: Regular rate and rhythm. S1 and S2 auscultated, no edema, peripheral pulses 2+ and intact throughout ABD: Abdomen soft, nondistended. Non-tender to palpation in the right flank. No guarding. No rebound tenderness. No peritoneal signs. EXT: Normal range of motion, no obvious deformity SKIN: No rashes or lesions observed on exposed skin. NEURO: Alert and oriented 4. Limitations: no limitations Course Vital Signs 07/01/23 20:16 Temperature 98.5 F Pulse Rate 68 Respiratory 18 Rate Blood Pressure 102/51 O2 Sat by Pulse 98 Oximetry Medical Decision Making - Medical Decision Making Was pt. sent in by a medical professional or institution (, PA, GENERATION TECHNICIAN, urgent care, hospital, or half-way...) When possible be specific @ -No Did you speak to anyone other than the patient for history (EMS, parent, family, police, friend...)? What history was obtained from this source @ -No Did you review nursing and triage notes (agree or disagree)? Why? @ -I reviewed and agree with nursing and triage notes Were old charts reviewed (outside hosp., previous admission, EMS record, old EKG, old radiological studies, urgent care reports/EKG's, half-way records)? Report findings @ -No old charts were reviewed Differential Diagnosis (chest pain, altered mental status, abdominal pain women, abdominal pain men, vaginal bleeding, weakness, fever, dyspnea, syncope, headache, dizziness, GI bleed, back pain, seizure, CVA, palpatations, mental health, musculoskeletal)? @ -Differential Abdominal Pain Men: Appendicitis, cholecystitis, diverticulosis, ischemic bowel, pancreatitis, hepatitis, UTI, gastroenteritis, AAA, incarcerated hernia, bowel obstruction, constipation, inflammatory bowel, hepatitis, peptic ulcer disease, splenic infarction, perforated viscus, testicular torsion, this is not meant to be an all-inclusive list EKG interpreted by me (3pts min.). @ -None done X-rays interpreted by me (1pt min.). @ -None done CT interpreted by me (1pt min.). @ -CT reveals intrarenal kidney stone but no passing stone or other acute process to expand the patient's right flank pain. U/S interpreted by me (1pt. min.). @ -None done What testing was considered but not performed or refused? (CT, X-rays, U/S, labs)? Why? @ -None What meds were considered but not given or refused? Why? @ -None Did you discuss the management of the patient with other professionals (professionals i.e. , PA, GENERATION TECHNICIAN, lab, RT, psych nurse, medical social worker, country printer apprentice, teacher, county health officer, senior case manager)? Give summary @ -No Was smoking cessation discussed for >3mins.? @ -No Was critical care preformed (if so, how long)? @ -No Were there social determinants of health that impacted care today? How? (Homelessness, low income, unemployed, alcoholism, drug addiction, transportation, low edu. Level, literacy, decrease access to med. care, senior living, rehab)? @ -No Was there de-escalation of care discussed even if they declined (Discuss DNR or withdrawal of care, Hospice)? DNR status @ -No What co-morbidities impacted this encounter? (DM, HTN, Smoking, COPD, CAD, Cancer, CVA, ARF, Chemo, Hep., AIDS, mental health diagnosis, sleep apnea, morbid obesity)? @ -None Was patient admitted / discharged? Hospital course, mention meds given and route, prescriptions, significant lab abnormalities, going to OR and other pertinent info. @ -Based on the patient's presentation and physical exam, I'm concerned for abdominal process for patient's current symptoms. We will obtain abdominal laboratory studies as well as a CT to evaluate for kidney stone. Patient was in agreement this plan. He will receive IV morphine and Toradol. Patient was in agreement with this plan. Vital signs within acceptable limits. Patient last received dialysis today. History studies are remarkable for chronic anemia with a hemoglobin of 11.4. Patient has an elevated BUN/creatinine setting of CK D. Mildly hyperglycemic as well. No obvious acute findings on labs. Urine is still pending. CT imaging shows no obvious source for the patient's current symptoms. I updated the patient. Analgesia medications appear to work. I would still like to obtain a urinalysis at this time and patient was in agreement with the plan. Disposition is pending UA. Urinalysis returned clean. We discussed the results. Diagnosis is abdominal pain of unknown etiology, as well as likely muscle strain. Discussed analgesia for home and patient is requesting muscle relaxers which will be provided I will also provide him with a starter pack of Tylenol 3. We discussed taking one of these or the other but not both. He was in agreement with the plan. Strict return precautions discussed. I will provide the patient with a prescription for Flexeril. I instructed the patient to follow up with their PCP in the next 1-3 days. I explained that the patient should return to the emergency department if they experience any worsening symptoms. Strict return precautions were discussed with the patient. The patient expressed understanding of these instructions. I answered all questions that the patient had. The patient was discharged home in good condition with their prescriptions and follow up information. Undiagnosed new problem with uncertain prognosis? @ -No Drug Therapy requiring intensive monitoring for toxicity (Heparin, Nitro, Insulin, Cardizem)? @ -No Were any procedures done? @ -No Diagnosis/symptom? @ -Abdominal pain of unknown etiology, muscle strain Acute, or Chronic, or Acute on Chronic? @ -Acute Uncomplicated (without systemic symptoms) or Complicated (systemic symptoms)? @ -Uncomplicated Side effects of treatment? @ -none Exacerbation, Progression, or Severe Exacerbation] @ -no Poses a threat to life or bodily function? @ -no - Lab Data Result diagrams: 07/01/23 21:15 07/01/23 21:15 Lab Results 07/01/23 07/01/23 07/02/23 Range/Units 21:15 21:15 00:46 WBC 3.8 (3.8-10.6) k/uL RBC 3.66 L (4.30-5.90) m/uL Hgb 11.4 L (13.0-17.5) gm/dL Hct 34.5 L (39.0-53.0) % MCV 94.3 (80.0-100.0) fL MCH 31.0 (25.0-35.0) pg MCHC 32.9 (31.0-37.0) g/dL RDW 14.2 (11.5-15.5) % Plt Count 154 (150-450) k/uL MPV 7.2 Neutrophils % 77 % Lymphocytes % 17 % Monocytes % 3 % Eosinophils % 1 % Basophils % 0 % Neutrophils # 2.9 (1.3-7.7) k/uL Lymphocytes # 0.6 L (1.0-4.8) k/uL Monocytes # 0.1 (0-1.0) k/uL Eosinophils # 0.0 (0-0.7) k/uL Basophils # 0.0 (0-0.2) k/uL Sodium 134 L (137-145) mmol/L Potassium 4.6 (3.5-5.1) mmol/L Chloride 93 L (98-107) mmol/L Carbon Dioxide 36 H (22-30) mmol/L Anion Gap 5 mmol/L BUN 48 H (9-20) mg/dL Creatinine 3.54 H (0.66-1.25) mg/dL Est GFR (CKD-EPI)AfAm 18 (>60 ml/min/1.73 sqM) Est GFR (CKD-EPI)NonAf 16 (>60 ml/min/1.73 sqM) Glucose 318 H (74-99) mg/dL Calcium 8.9 (8.4-10.2) mg/dL Total Bilirubin 0.4 (0.2-1.3) mg/dL AST 24 (17-59) U/L ALT 8 (4-49) U/L Alkaline Phosphatase 62 (38-126) U/L Total Protein 6.1 L (6.3-8.2) g/dL Albumin 3.3 L (3.5-5.0) g/dL Urine Color Yellow Urine Appearance Clear (Clear) Urine pH 6.5 (5.0-8.0) Ur Specific [place] 1.013 (1.001-1.035) Urine Protein 1+ H (Negative) Urine Glucose (UA) 3+ H (Negative) Urine Ketones Negative (Negative) Urine Blood Negative (Negative) Urine Nitrite Negative (Negative) Urine Bilirubin Negative (Negative) Urine Urobilinogen <2.0 (<2.0) mg/dL Ur Leukocyte Esterase Negative (Negative) Urine WBC 1 (0-5) /hpf Hyaline Casts 1 (0-2) /lpf Urine Mucus Rare H (None) /hpf Disposition Clinical Impression: Muscle strain, Abdominal pain of unknown etiology Disposition: HOME SELF-CARE Condition: Good Instructions (If sedation given, give patient instructions): Muscle Strain (ED), Abdominal Pain (ED) Prescriptions: Cyclobenzaprine [Flexeril] 5 mg PO BID PRN 7 Days #14 tablet PRN Reason: Pain Is patient prescribed a controlled substance at d/c from ED?: No Referrals: Kimberly Gerardo MD [Primary Care Provider] - 1-2 days Time of Disposition: 02:04
[2023-07-02 01:21] LABS: Appearance,Urine Clear (Clear); Bilirubin,Urine Negative (Negative); Blood,Urine Negative (Negative); Color,Urine Yellow; Glucose,Urine (UA) 3+ (Negative); Hyaline Casts,Urine 1 /lpf (0-2); Ketones,Urine Negative (Negative); Leukocyte Esterase,Urine Negative (Negative); Mucus,Urine Rare /hpf; Nitrite,Urine Negative (Negative); PH, Urine 6.5 (5.0-8.0); Protein,Urine 1+ (Negative); Specific Gravity,Urine 1.013 (1.001-1.035); Urobilinogen,Urine <2.0 mg/dL (<2.0); WBC,Urine 1 /hpf (0-5)
[2023-07-02] MEDS ORDERED: ACET/COD 300 MG/30 MG STARTER PACK 6 TAB BTL PO STA (02:09)
[2023-07-02 02:22] VITALS: BP 117/59; PULSE 62
== END 2023-07-02 02:22 | disposition home or self-care (01) ==
LOC: EC 20:11
DX: S39.011A Strain of muscle, fascia and tendon of abdomen, initial encounter (principal); N20.0 Calculus of kidney; E11.22 Type 2 diabetes mellitus with diabetic chronic kidney disease; E11.36 Type 2 diabetes mellitus with diabetic cataract; N18.6 End stage renal disease; E07.9 Disorder of thyroid, unspecified; E78.5 Hyperlipidemia, unspecified; F31.9 Bipolar disorder, unspecified; F41.9 Anxiety disorder, unspecified; Z79.4 Long term (current) use of insulin; Z79.890 Hormone replacement therapy; Z79.899 Other long term (current) drug therapy; Z87.891 Personal history of nicotine dependence; Z99.2 Dependence on renal dialysis; X58.XXXA Exposure to other specified factors, initial encounter
CPT/HCPCS: 36415; 80053; 85025; 81001; 74176; 99284; 96374; 96375; 96376; J2270 ×2; J1885

== ENCOUNTER 2023-07-09 12:39 | Inpatient (IN) | payer MEDICARE, BC ==
[2023-07-09] MEDS ORDERED: SODIUM CHLORIDE 0.9% 1,000 ML IV STA (13:04)
[2023-07-09] MEDS ORDERED: KETOROLAC 15 MG/ML 1 ML VIAL IVP STA (13:04)
--- NOTE | 2023-07-09 13:06 | ED ---
General Adult HPI - General Chief complaint: Back Pain/Injury Stated complaint: Back pain Time Seen by Provider: 07/09/23 12:54 Source: patient, RN notes reviewed, old records reviewed Mode of arrival: ambulatory Limitations: no limitations - History of Present Illness Initial comments: Patient is a pleasant 77-year-old male presenting to the emergency department with concerns for back pain. Patient has had symptoms over the past week, worse again the past couple of days. Patient does have Parkinson's. Patient has a couple of falls. No significant injury from the falls. No new weakness however patient is having difficulty with walking secondary to pain and Parkinson's. Patient does live alone. No fever. No urinary symptoms. Discomfort is right lower back. Patient states he was here a week ago and diagnosed with a kidney stone. Patient does have history of chronic back pain as well. Back pain increases with position changes and movement. - Related Data Home Medications Medication Instructions Recorded Confirmed Levothyroxine Sodium [Synthroid] 200 mcg PO DAILY 01/29/16 01/30/23 Lovastatin [Mevacor] 40 mg PO HS 01/29/16 01/30/23 Escitalopram [Lexapro] 20 mg PO QAM 11/06/19 01/30/23 Fenofibrate 54 mg PO HS 02/19/22 01/30/23 Insulin Lispro [humaLOG Kwikpen] See Protocol SQ AC-TID PRN 08/30/22 01/30/23 Cyanocobalamin (Vitamin B-12) 1,000 mcg PO DAILY 01/30/23 01/30/23 [Vitamin B-12] Ferrous Sulfate [Iron (65 MG 325 mg PO DAILY 01/30/23 01/30/23 Elemental)] Folic Acid 0.4 mg PO DAILY 01/30/23 01/30/23 Ketoconazole 2% Cream [Nizoral 2%] 1 applic TOPICAL DAILY 01/30/23 01/30/23 Levothyroxine Sodium [Synthroid] 50 mcg PO [id number] 01/30/23 01/30/23 Levothyroxine Sodium [Synthroid] 75 mcg PO YUN 01/30/23 01/30/23 Lidocaine-Prilocaine Cream [Emla 1 applic TOPICAL DIRECTED 01/30/23 01/30/23 Cream 2.5%/2.5%] lamoTRIgine [LaMICtal] 150 mg PO DAILY 01/30/23 01/30/23 Previous Rx's Medication Instructions Recorded Acetaminophen Tab [Tylenol] 650 mg PO Q6HR PRN tab 02/04/23 Carbidopa-Levodopa 25-250 mg 1 each PO TID@08,,18 tab 02/04/23 [Sinemet 25-250 mg] Divalproex ER [Depakote ER] 1,250 mg PO DAILY #0 02/04/23 Lidocaine 5% Patch [Lidoderm 5% 1 patch TOPICAL DAILY PRN #7 patch 06/21/23 Patch] Cyclobenzaprine [Flexeril] 5 mg PO BID PRN 7 Days #14 tablet 07/02/23 Allergies Allergy/AdvReac Type Severity Reaction Status Date / Time No Known Allergies Allergy Verified 07/09/23 12:47 Review of Systems ROS Statement: Those systems with pertinent positive or pertinent negative responses have been documented in the HPI. ROS Other: All systems not noted in ROS Statement are negative. Constitutional: Denies: fever Eyes: Denies: eye pain ENT: Denies: ear pain Respiratory: Denies: cough Cardiovascular: Denies: chest pain Endocrine: Denies: fatigue Gastrointestinal: Denies: abdominal pain Genitourinary: Denies: dysuria Musculoskeletal: Reports: as per HPI, back pain Past Medical History Past Medical History: Diabetes Mellitus, Hearing Disorder / Deafness, Hyperlipidemia, Osteoarthritis (OA), Renal Disease, Sleep Apnea/CPAP/BIPAP, Thyroid Disorder Additional Past Medical History / Comment(s): Heart murmer, Parkinson's, CPAP use, hard of hearing. History of Any Multi-Drug Resistant Organisms: None Reported Past Surgical History: Orthopedic Surgery, Tonsillectomy Additional Past Surgical History / Comment(s): Bilateral knee surgery, left foot bone spur, right cataract removed, left shoulder arthroscopy, peritoneal dialysis catheter placed. Past Anesthesia/Blood Transfusion Reactions: No Reported Reaction Past Psychological History: Anxiety, Bipolar, Depression Smoking Status: Former smoker Past Alcohol Use History: None Reported Past Drug Use History: None Reported - Past Family History Father Family Medical History: Cancer Mother Additional Family Medical History / Comment(s): Mother at age 74 from heart failure. Brother(s) Additional Family Medical History / Comment(s): Patient has one brother and one sister both have diabetes. Patient's 3 children with no major medical problems. General Exam Limitations: no limitations General appearance: alert, in no apparent distress Head exam: Present: normocephalic Eye exam: Present: normal appearance Neck exam: Present: normal inspection Respiratory exam: Present: normal lung sounds bilaterally Cardiovascular Exam: Present: regular rate, normal rhythm GI/Abdominal exam: Present: soft. Absent: tenderness Extremities exam: Present: normal inspection Back exam: Present: CVA tenderness (R) (Below the right CVA) Neurological exam: Present: alert Psychiatric exam: Present: normal affect, normal mood Skin exam: Present: normal color Course Vital Signs 07/09/23 12:43 Temperature 98.0 F Pulse Rate 66 Respiratory 17 Rate Blood Pressure 111/57 O2 Sat by Pulse 98 Oximetry Medical Decision Making - Medical Decision Making Was pt. sent in by a medical professional or institution (, PA, SENIOR PAYROLL MANAGER, urgent care, hospital, or senior living...) When possible be specific @ -No Did you speak to anyone other than the patient for history (EMS, parent, family, police, friend...)? What history was obtained from this source @ -Family is present and helps provide history as patient somewhat is a poor historian. Did you review nursing and triage notes (agree or disagree)? Why? @ -I reviewed and agree with nursing and triage notes Were old charts reviewed (outside hosp., previous admission, EMS record, old EKG, old radiological studies, urgent care reports/EKG's, senior living records)? Report findings @ -No old charts were reviewed Differential Diagnosis (chest pain, altered mental status, abdominal pain women, abdominal pain men, vaginal bleeding, weakness, fever, dyspnea, syncope, headache, dizziness, GI bleed, back pain, seizure, CVA, palpatations, mental health, musculoskeletal)? @ -Differential Weakness: Hypoglycemia, shock, sepsis, hyponatremia, anemia, infection, LA, ETOH, adverse medicine reaction, overdose, stroke, this is not meant to be an all-inclusive list. EKG interpreted by me (3pts min.). @ -As above X-rays interpreted by me (1pt min.). @ -Chest x-ray KUB did not reveal acute abnormality CT interpreted by me (1pt min.). @ -None done U/S interpreted by me (1pt. min.). @ -Report reviewed What testing was considered but not performed or refused? (CT, X-rays, U/S, labs)? Why? @ -None What meds were considered but not given or refused? Why? @ -None Did you discuss the management of the patient with other professionals (professionals i.e. , PA, SENIOR PAYROLL MANAGER, lab, RT, psych nurse, hospice social worker, leasing associate, teacher, consumer safety officer, rehabilitation case coordinator)? Give summary @ -Case was [address] Gerardo who will admit his patient. He will also come evaluate. Was smoking cessation discussed for >3mins.? @ -No Was critical care preformed (if so, how long)? @ -No Were there social determinants of health that impacted care today? How? (Homelessness, low income, unemployed, alcoholism, drug addiction, transportation, low edu. Level, literacy, decrease access to med. care, nursing home, re hab)? @ -Patient does live on his own Was there de-escalation of care discussed even if they declined (Discuss DNR or withdrawal of care, Hospice)? DNR status @ -No What co-morbidities impacted this encounter? (DM, HTN, Smoking, COPD, CAD, Cancer, CVA, ARF, Chemo, Hep., AIDS, mental health diagnosis, sleep apnea, morbid obesity)? @ -History of Parkinson's Was patient admitted / discharged? Hospital course, mention meds given and route, prescriptions, significant lab abnormalities, going to OR and other pertinent info. @ -Patient reevaluated and was feeling better. Patient later reevaluated and states his pain is returned and states at this point that he never got any better. Family is present and voiced concerns regarding patient being at home. They state patient has fallen 3 times in the last 4 days. They are interested in looking at rehab/placement. Undiagnosed new problem with uncertain prognosis? @ -No Drug Therapy requiring intensive monitoring for toxicity (Heparin, Nitro, Insulin, Cardizem)? @ -No Were any procedures done? @ -No Diagnosis/symptom? @ -Back pain, weakness Acute, or Chronic, or Acute on Chronic? @ -. Acute on Chronic, acute Uncomplicated (without systemic symptoms) or Complicated (systemic symptoms)? @ -default Side effects of treatment? @ -No Exacerbation, Progression, or Severe Exacerbation? @ -No Poses a threat to life or bodily function? How? (Chest pain, USA, LA, pneumonia, PE, COPD, DKA, ARF, appy, cholecystitis, CVA, Diverticulitis, Homicidal, Suicidal, threat to staff... and all critical care pts) @ -No - Lab Data Result diagrams: 07/09/23 14:00 07/09/23 14:00 Lab Results 07/09/23 07/09/23 Range/Units 14:00 14:00 WBC 4.1 (3.8-10.6) k/uL RBC 3.46 L (4.30-5.90) m/uL Hgb 10.8 L (13.0-17.5) gm/dL Hct 31.7 L (39.0-53.0) % MCV 91.7 (80.0-100.0) fL MCH 31.2 (25.0-35.0) pg MCHC 34.1 (31.0-37.0) g/dL RDW 14.7 (11.5-15.5) % Plt Count 119 L (150-450) k/uL MPV 7.4 Neutrophils % 58 % Lymphocytes % 34 % Monocytes % 6 % Eosinophils % 1 % Basophils % 0 % Neutrophils # 2.4 (1.3-7.7) k/uL Lymphocytes # 1.4 (1.0-4.8) k/uL Monocytes # 0.2 (0-1.0) k/uL Eosinophils # 0.1 (0-0.7) k/uL Basophils # 0.0 (0-0.2) k/uL Sodium 133 L (137-145) mmol/L Potassium 4.3 (3.5-5.1) mmol/L Chloride 97 L (98-107) mmol/L Carbon Dioxide 25 (22-30) mmol/L Anion Gap 11 mmol/L BUN 97 H (9-20) mg/dL Creatinine 7.03 H* (0.66-1.25) mg/dL Est GFR (CKD-EPI)AfAm 8 (>60 ml/min/1.73 sqM) Est GFR (CKD-EPI)NonAf 7 (>60 ml/min/1.73 sqM) Glucose 179 H (74-99) mg/dL Calcium 8.7 (8.4-10.2) mg/dL Total Bilirubin 0.4 (0.2-1.3) mg/dL AST 27 (17-59) U/L ALT 10 (4-49) U/L Alkaline Phosphatase 54 (38-126) U/L Total Protein 5.5 L (6.3-8.2) g/dL Albumin 3.1 L (3.5-5.0) g/dL Amylase 60 (30-110) U/L Lipase 582 H (23-300) U/L Disposition Clinical Impression: Weakness, Back pain Disposition: ADMITTED IP TO THIS HOSP Is patient prescribed a controlled substance at d/c from ED?: No Referrals: Kimberly Gerardo MD [Primary Care Provider] - 1-2 days Time of Disposition: 17:49
[2023-07-09 14:07] LABS: Basophils % (A) 0 %; Eosinophils # (A) 0.1 k/uL (0-0.7); Eosinophils % (A) 1 %; HCT 31.7 % (39.0-53.0); HGB 10.8 gm/dL (13.0-17.5); Lymphocytes # (A) 1.4 k/uL (1.0-4.8); Lymphocytes % (A) 34 %; MCH 31.2 pg (25.0-35.0); MCHC 34.1 g/dL (31.0-37.0); MCV 91.7 fL (80.0-100.0); Mean Platelet Volume 7.4; Monocytes # (A) 0.2 k/uL (0-1.0); Monocytes % (A) 6 %; Neutrophils # (A) 2.4 k/uL (1.3-7.7); Neutrophils % (A) 58 %; Platelet Count 119 k/uL (150-450); RBC 3.46 m/uL (4.30-5.90); RDW 14.7 % (11.5-15.5); WBC 4.1 k/uL (3.8-10.6)
--- NOTE | 2023-07-09 14:32 | XR ---
EXAMINATION TYPE: XR chest 2V DATE OF EXAM: 07/09/2023 COMPARISON: 07/24/2011 HISTORY: 77-year-old male with back pain and flank pain TECHNIQUE: AP and lateral views FINDINGS: The cardiomediastinal silhouette, aorta, and pulmonary vasculature are within normal limits. Lungs an d pleural spaces are clear. IMPRESSION: No acute cardiopulmonary process.
[2023-07-09 14:34] LABS: ALT 10 U/L (4-49); AST 27 U/L (17-59); African American GFR (CKD) 8 (>60 ml/min/1.73 sqM); Albumin 3.1 g/dL (3.5-5.0); Alkaline Phosphatase 54 U/L (38-126); Amylase 60 U/L (30-110); Anion Gap 11 mmol/L; Blood Urea Nitrogen 97 mg/dL (9-20); Calcium 8.7 mg/dL (8.4-10.2); Carbon Dioxide 25 mmol/L (22-30); Chloride 97 mmol/L (98-107); Glucose 179 mg/dL (74-99); Lipase 582 U/L (23-300); Non-African American GFR(CKD) 7 (>60 ml/min/1.73 sqM); Potassium 4.3 mmol/L (3.5-5.1); Sodium 133 mmol/L (137-145); Total Bilirubin 0.4 mg/dL (0.2-1.3); Total Protein 5.5 g/dL (6.3-8.2)
--- NOTE | 2023-07-09 14:41 | XR ---
EXAMINATION TYPE: XR KUB DATE OF EXAM: 07/09/2023 Comparison: None Clinical History: 77-year-old male abdominal pain Findings: Nonobstructive bowel gas pattern. Mild to moderate stool burden. No suspicious calcifications seen. S upine imaging limited for assessment of free air. Lung bases are clear. Impression: Nonobstructive bowel gas pattern. Mild to moderate stool burden.
--- NOTE | 2023-07-09 17:03 | US ---
EXAMINATION TYPE: US gallbladder DATE OF EXAM: 07/09/2023 COMPARISON: Correlation CT 07/01/2023 CLINICAL INDICATION: Male, 77 years old with history of Also evaluate pancreas, pain; RUQ pain TECHNIQUE: Multiple sonographic images of the right upper quadrant are obtained. FINDINGS: EXAM MEASUREMENTS: Liver Length: 15.0 cm Gallbladder Wall: 0.2 cm CBD: 0.6 cm Right Kidney: 8.5x5.0x5.0 cm Pancreas: Prominent duct: 0.2 cm. Tail obscured by overlying bowel gas Liver: Homogeneous appearance. No focal lesion seen. Gallbladder: Over distended: 10.2x4.5x5.8cm. No gallstones, wall thickening, or surrounding fluid. Evidence for sonographic Andersen's sign: No CBD: upper limits Right Kidney: Anechoic area superior pole: 1.4x1.3x1.2cm. There is an oval hypoechoic area at the lo wer pole measuring 2.6 x 2.5 x 1.5 cm, possible prominent cortical lobulation rather than mass for wh ich short interval follow-up is recommended. Limited evaluation due to bowel gas and body habitus. N o hydronephrosis. IMPRESSION: 1. Hydropic gallbladder may be due to fasting state. No gallstones or axillary findings of acute chol ecystitis. 2. Bile duct upper limits of normal at 6 mm, acceptable given patient's age. 3. A 2.6 cm rounded area of possible cortical lobulation versus mass lower pole right kidney. Three-m onth follow-up ultrasound to exclude a mass here. Alternatively, contrast-enhanced renal mass protoco l CT or MRI can be performed.
[2023-07-09] MEDS ORDERED: MORPHINE SULFATE 4 MG/ML SYRINGE IVP STA (17:44)
[2023-07-09] MEDS ORDERED: NALOXONE 0.4 MG/ML 1 ML VIAL IV PRN (17:46)
[2023-07-09] MEDS ORDERED: ACETAMINOPHEN TAB 325 MG TAB PO PRN ×2 (17:46→19:07)
[2023-07-09] MEDS ORDERED: IBUPROFEN 400 MG TAB PO PRN (17:46)
[2023-07-09 18:14] LABS: Appearance,Urine Clear (Clear); Bilirubin,Urine Negative (Negative); Blood,Urine Small (Negative); Color,Urine Light Yellow; Glucose,Urine (UA) Trace (Negative); Ketones,Urine Negative (Negative); Leukocyte Esterase,Urine Negative (Negative); Mucus,Urine Rare /hpf; Nitrite,Urine Negative (Negative); PH, Urine 5.5 (5.0-8.0); Protein,Urine Trace (Negative); RBC,Urine 6 /hpf (0-5); Specific Gravity,Urine 1.013 (1.001-1.035); Urobilinogen,Urine <2.0 mg/dL (<2.0); WBC,Urine 2 /hpf (0-5)
[2023-07-09] MEDS ORDERED: LIDOCAINE 5% PATCH TOPICAL PRN (19:07)
[2023-07-09] MEDS ORDERED: CYCLOBENZAPRINE 5 MG TAB PO PRN (19:07)
[2023-07-09] MEDS ORDERED: LIDOCAINE-PRILOCAINE 2.5-2.5% CREAM 5 GM TUBE TOPICAL PRN (19:15)
[2023-07-09 20:55] LABS: Glucose,Whole Blood 101 mg/dL (70-110)
[2023-07-09] MEDS: INSULIN ASPART (NovoLOG) 100 UNIT/ML VIAL SQ SCH (21:03)
[2023-07-09] MEDS: ATORVASTATIN 10 MG TAB PO SCH (21:57)
[2023-07-09] MEDS: FENOFIBRATE 54 MG TAB PO SCH (21:57)
[2023-07-09] MEDS: HEPARIN SODIUM,PORCINE 5,000 UNIT/ML 1 ML VIAL SQ SCH (22:04)
[2023-07-10] MEDS: LEVOTHYROXINE 100 MCG TAB PO SCH (05:29)
[2023-07-10] MEDS: LEVOTHYROXINE 50 MCG TAB PO SCH (05:33)
[2023-07-10 07:44] LABS: Glucose,Whole Blood 77 mg/dL (70-110)
[2023-07-10] MEDS: INSULIN ASPART (NovoLOG) 100 UNIT/ML VIAL SQ SCH ×4 (08:02→20:23)
[2023-07-10] MEDS ORDERED: DIVALPROEX ER 500 MG TAB.ER.24H PO SCH (09:00)
[2023-07-10] MEDS ORDERED: DIVALPROEX ER 250 MG TAB.ER.24H PO SCH (09:00)
[2023-07-10] MEDS: CARBIDOPA-LEVODOPA 25-250 MG 1 EACH TAB PO SCH ×4 (09:39→19:56)
[2023-07-10] MEDS: CYANOCOBALAMIN 500 MCG TAB PO SCH (09:39)
[2023-07-10] MEDS: ESCITALOPRAM 20 MG TAB PO SCH (09:40)
[2023-07-10] MEDS: FERROUS SULFATE 325 MG TAB PO SCH (09:40)
[2023-07-10] MEDS: FOLIC ACID 1 MG TAB PO SCH (09:40)
[2023-07-10] MEDS: HEPARIN SODIUM,PORCINE 5,000 UNIT/ML 1 ML VIAL SQ SCH ×2 (09:40→19:57)
[2023-07-10] MEDS: lamoTRIgine 100 MG TAB PO SCH (09:40)
[2023-07-10] MEDS: MORPHINE SULFATE 4 MG/ML SYRINGE IV PRN (09:54)
--- NOTE | 2023-07-10 12:07 | P.NPCON ---
History of Present Illness - Reason for Consult end stage renal disease - History of Present Illness Reason for consultation: End-stage renal disease History of present illness: Patient is a 77-year-old male seen in consultation for end-stage renal disease. He is maintained on hemodialysis on Saturday schedule. Last treatment was on Saturday. Patient missed Saturday's treatment due to not feeling well. Patient states he's been having back pain. He does have history of Parkinson's. Patient has also been falling. Patient also states he's concerned about a kidney stone. He denies fever or chills. Blood pressure stable. He does admit to making urine. Chest x-ray was negative. Questionable kidney mass noted on gallbladder ultrasound. CAT scan dated 07/02/2023 showed simple cysts in the kidneys and a 2 mm nonobstructing right kidney. No hydronephrosis was noted. He is currently resting in bed. Oral intake fair. UA not suggestive of UTI. Vital signs are stable. General: No acute distress. HEENT: Head exam is unremarkable. LUNGS: No audible rhonchi diuresis. HEART: Rate and Rhythm are regular. ABDOMEN: Nontender. EXTREMITITES: No edema. Past Medical History Past Medical History: Diabetes Mellitus, Hearing Disorder / Deafness, Hyperlipidemia, Osteoarthritis (OA), Renal Disease, Sleep Apnea/CPAP/BIPAP, Thyroid Disorder Additional Past Medical History / Comment(s): Heart murmer, Parkinson's, CPAP u se, hard of hearing. History of Any Multi-Drug Resistant Organisms: None Reported Past Surgical History: Orthopedic Surgery, Tonsillectomy Additional Past Surgical History / Comment(s): Bilateral knee surgery, left foot bone spur, right cataract removed, left shoulder arthroscopy, peritoneal dialysis catheter placed. Past Anesthesia/Blood Transfusion Reactions: No Reported Reaction Past Psychological History: Anxiety, Bipolar, Depression Smoking Status: Former smoker Past Alcohol Use History: None Reported Additional Past Alcohol Use History / Comment(s): Quit smoking 25-30 yrs ago, smoked for 20 yrs, 1 PPD. Past Drug Use History: None Reported Additional Drug Use History / Comment(s): CBD Oil occasionally to back. Aware no use 24 hrs prior to procedure. - Past Family History Father Family Medical History: Cancer Mother Additional Family Medical History / Comment(s): Mother at age 74 from heart failure. Brother(s) Additional Family Medical History / Comment(s): Patient has one brother and one sister both have diabetes. Patient's 3 children with no major medical problems. Medications and Allergies Home Medications Medication Instructions Recorded Confirmed Type Levothyroxine Sodium [Synthroid] 200 mcg PO DAILY 01/29/16 07/09/23 History Lovastatin [Mevacor] 40 mg PO HS 01/29/16 07/09/23 History Escitalopram [Lexapro] 20 mg PO DAILY 11/06/19 07/09/23 History Fenofibrate 54 mg PO HS 02/19/22 07/09/23 History Insulin Lispro [humaLOG Kwikpen] See Protocol SQ AC-TID 08/30/22 07/09/23 History Ferrous Sulfate [Iron (65 MG 325 mg PO DAILY 01/30/23 07/09/23 History Elemental)] Lidocaine-Prilocaine Cream [Emla 1 applic TOPICAL DIRECTED PRN 01/30/23 07/09/23 History Cream 2.5%/2.5%] lamoTRIgine [LaMICtal] 150 mg PO DAILY 01/30/23 07/09/23 History Acetaminophen/Diphenhydramine 1 tab PO HS 07/09/23 07/09/23 History [Tylenol PM 500-25mg] Carbidopa-Levodopa 25-250 mg 1 tab PO TID 07/09/23 07/09/23 History [Sinemet 25-250] Divalproex Sodium [Depakote] 1,000 mg PO HS 07/09/23 07/09/23 History Divalproex [Depakote] 250 mg PO HS 07/09/23 07/09/23 History Ibuprofen [Motrin Ib] 600 mg PO DAILY PRN 07/09/23 07/09/23 History Lidocaine 5% Patch [Lidoderm] 1 patch TRANSDERM DAILY PRN 07/09/23 07/09/23 History Allergies Allergy/AdvReac Type Severity Reaction Status Date / Time No Known Allergies Allergy Verified 07/09/23 19:39 Physical Exam Vitals: Vital Signs Temp Pulse Pulse Resp BP BP Pulse Ox 07/10/23 07:43 98.1 F 63 16 120/68 98 07/10/23 02:08 98.6 F 63 18 122/53 97 07/09/23 22:25 98.3 F 60 18 146/78 97 07/09/23 20:16 58 L 16 131/80 98 07/09/23 18:16 98.1 F 61 16 110/58 96 07/09/23 12:43 98.0 F 66 17 111/57 98 Intake and Output 07/09/23 07/10/23 07/10/23 22:59 06:59 14:59 Other: Voiding Method Toilet Toilet # Voids 2 Weight 80.739 kg Results - Lab Results Most recent lab results Calcium 8.7 mg/dL (8.4-10.2) 07/09/23 14:00 07/09/23 14:00 07/09/23 14:00 Assessment and Plan Plan: Assessment: 1. End-stage renal disease maintained on hemodialysis on Saturday schedule via right upper extremity AV fistula. 2. Generalized weakness with recurrent falls. 3. Chronic diastolic CHF. 4. Anemia of chronic kidney disease. Plan: Hemodialysis today. Check iron studies. Check phosphorus level. Thank you for the consultation. I will continue to follow the patient with you during his hospital stay.
[2023-07-10 12:20] LABS: Glucose,Whole Blood 76 mg/dL (70-110)
[2023-07-10 13:12] LABS: ALT 10 U/L (4-49); African American GFR (CKD) 7 (>60 ml/min/1.73 sqM); Albumin 2.9 g/dL (3.5-5.0); Albumin/Globulin Ratio 1.1; Anion Gap 15 mmol/L; Carbon Dioxide 21 mmol/L (22-30); Chloride 103 mmol/L (98-107); Globulin 2.7 g/dL; Glucose 77 mg/dL (74-99); Lipase 84 U/L (23-300); Non-African American GFR(CKD) 6 (>60 ml/min/1.73 sqM); Phosphorus 6.8 mg/dL (2.5-4.5); Sodium 139 mmol/L (137-145); Total Bilirubin 0.8 mg/dL (0.2-1.3); Total Protein 5.6 g/dL (6.3-8.2)
[2023-07-10 13:29] LABS: Glucose,Whole Blood 106 mg/dL (70-110)
[2023-07-10 13:42] VITALS: BMI 24.1
[2023-07-10 13:47] LABS: Calcium 9.4 mg/dL (8.4-10.2)
[2023-07-10 13:50] LABS: Blood Urea Nitrogen 106 mg/dL (9-20)
[2023-07-10 13:56] LABS: AST 31 U/L (17-59); Alkaline Phosphatase 44 U/L (38-126)
[2023-07-10] MEDS ORDERED: LIDOCAINE 5% PATCH TOPICAL PRN (15:48)
[2023-07-10 16:03] LABS: % Iron Saturation 64.63 (15.00-50.00)
--- NOTE | 2023-07-10 16:06 | P.HPIM ---
History of Present Illness H&P Date: 07/09/23 Chief Complaint: Falls/ back pain HISTORY OF PRESENT ILLNESS This is a 77 year old male patient with past medical history of hypertension, hyperlipidemia, hypothyroidism, diabetes mellitus type 2, end-stage renal disease on hemodialysis Saturday, Parkinson's disease, bipolar disorder, patient has been having issues with weakness in both legs and has been falling alot over the past three days, he went to his daughter in [place] and he fe ll using his walker Saturday and Saturday and Saturday night after he went back home he had partial hemodialysis on saturday and he was supposed to see this t since he is not doing better after 2 epidurals and he is getting relief from pain management, patient has visited the ER recently on 07/02/2023 for right flank pain and had CT scan of the Abdomen and pelvis that did nor show evidence of any hydronephrosis , surprisingly his lipase was slightly elevated and now with more elevation patient underwent US of the Abdomen that showed hydropic gallbladder and prominent CBD at 6 mm no evidence of cholecystitis and there was 2.5 cm rounded area at the lower pole of the right kidney likely Lobulation can not rule out mass , it was recommended to continue with monitoring with MRI as outpatient REVIEW OF SYSTEMS Constitutional: No fever, no chills, no night sweats. No weight change. Reported weakness, fatigue. No daytime sleepiness. HEENT: No headache. No nasal drainage or congestion. No epistaxis. No sore throat. Lungs: No shortness of breath, cough, no sputum production. No wheezing. Cardiovascular: No chest pain, no lower extremity edema. No palpitations. No paroxysmal nocturnal dyspnea. No orthopnea. No lightheadedness or dizziness. No syncopal episodes. Abdominal: positive for abdominal pain. No nausea, vomiting. No diarrhea. pos itive for constipation. No bloody or tarry stools. positive for loss of appetite. Genitourinary: No dysuria, increased frequency, urgency. No urinary retention. Musculoskeletal: No myalgias. Reported muscle weakness, reported gait dysfunction with chronic shuffling gait secondary to Parkinson's, reported frequent falls. positive for back pain and neck pain. Integumentary: No wounds, no lesions. No rash or pruritus. positive for bruising. No change in hair or nails. Neurologic: No aphasia. No facial droop. No change in mentation. No head injury. No headache. No paralysis. No paresthesia. Psychiatric: Reported depression. No anxiety. Endocrine: No abnormal blood sugars. No weight change. No excessive sweating or thirst. No cold intolerance. MEDICAL HISTORY Hypertension Hyperlipidemia Hypothyroidism Diabetes mellitus type 2 End-stage renal disease on hemodialysis Saturday Parkinson's disease Bipolar disorder. SURGICAL HISTORY Left knee arthroscopically Left foot bone spur Left cataract surgery Left shoulder arthroscopically Right arm AV fistula Right groin Mg catheter. SOCIAL HISTORY Patient was a smoker one pack per day for 20 years ago quit 40 years ago. No alcohol use, no illicit drug use or marijuana use. He lives alone in senior housing. He normally uses a rolling walker for ambulation FAMILY HISTORY Father at age 73 from lung cancer with history of diabetes. Mother at age 74 from CHF. Brother is alive with diabetes. Sister is alive with diabetes. Patient has 2 daughters with no major medical problems. PHYSICAL EXAMINATION Gen: This is a 77-year-old male. He is resting in bed appears to be fairly comfortable. HEENT: Head is atraumatic, normocephalic. Pupils equal, round. Sclerae is anicteric. NECK: Supple. No JVD. No lymphadenopathy. No thyromegaly. LUNGS: Clear to auscultation. No wheezes or rhonchi. No intercostal retractions. HEART: Regular rate and rhythm. 2/6 systolic murmur at the left sternal border, no S3, no S4. ABDOMEN: Soft, mild tenderness in the midepigastric to right upper quadrant area Bowel sounds are present. No masses.. EXTREMITIES: No pedal edema. No calf tenderness. Dorsalis pedis posterior bilaterally NEUROLOGICAL: Patient is awake, alert and oriented x3. Cranial nerves 2 through 12 are grossly intact. Deep tendon reflexes 2+ symmetrical, muscle power 2/5 in the left lower extremity 4/5 in the right lower extremity and 4/5 in bilateral upper extremities. ASSESSMENT AND PLAN 1. Recurrent falls with acute on chronic back pain. we will continue with Flexeril 5 mg orally bid along with Tramadol 50 mg po q 6 h as needed, Morphine ordered for severe pain, PT and OT consult along with group social worker consult for discharge planning. 2. End-stage renal disease on Saturday. Patient missed dialysis treatment on 01/29. Consult with Dr. Scott veliz. Patient is scheduled for hemodialysis today and again tomorrow.. 3. Hdropic Gallbladder with elevated Lipase . CT scan few days ago did not show evidence of pancreatitis, besides there was no Gallsrones, we will continue to monitor 4. Parkinson's disease. Consult with neurology. Patient is currently on Sinemet 29817 milligrams 3 times daily. 5. Hypertension. Patient not currently on medications. No documented episodes of hypotension 6. Hyperlipidemia. Continue atorvastatin 10 mg at bedtime, fenofibrate 54 mg at bedtime. 7. Hypothyroidism. Continue levothyroxine 200 g daily and 50 g Saturday through Saturday and 75 g on Saturday. TSH on 01/07 was 8.9, free T4 normal at 1.02. 8. Diabetes mellitus type 2. With recent A1c 7.0. Continue NovoLog scale before meals and at bedtime. 9. Bipolar disorder. Patient is on Depakote 1250 mg po qhs and we will continue with Lamictal 150 mg po daily and Lexparo 20 mg po daily 10. 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 Continue ferrous sulfate 325 mg daily. 11. DVT prophylaxis. Heparin subcu 5000 units every 12 hours. 12. GI prophylaxis. Pepcid 20 mg po daily Patient will be admitted to the hospital for a minimum of 2 night stay. Past Medical History Past Medical History: Diabetes Mellitus, Hearing Disorder / Deafness, Hyperlipidemia, Osteoarthritis (OA), Renal Disease, Sleep Apnea/CPAP/BIPAP, Thyroid Disorder Additional Past Medical History / Comment(s): Heart murmer, Parkinson's, CPAP u se, hard of hearing. History of Any Multi-Drug Resistant Organisms: None Reported Past Surgical History: Orthopedic Surgery, Tonsillectomy Additional Past Surgical History / Comment(s): Bilateral knee surgery, left foot bone spur, right cataract removed, left shoulder arthroscopy, peritoneal dialysis catheter placed. Past Anesthesia/Blood Transfusion Reactions: No Reported Reaction Past Psychological History: Anxiety, Bipolar, Depression Smoking Status: Former smoker Past Alcohol Use History: None Reported Past Drug Use History: None Reported - Past Family History Father Family Medical History: Cancer Mother Additional Family Medical History / Comment(s): Mother at age 74 from heart failure. Brother(s) Additional Family Medical History / Comment(s): Patient has one brother and one sister both have diabetes. Patient's 3 children with no major medical problems. Medications and Allergies Home Medications Medication Instructions Recorded Confirmed Type Levothyroxine Sodium [Synthroid] 200 mcg PO DAILY 01/29/16 07/09/23 History Lovastatin [Mevacor] 40 mg PO HS 01/29/16 07/09/23 History Escitalopram [Lexapro] 20 mg PO DAILY 11/06/19 07/09/23 History Fenofibrate 54 mg PO HS 02/19/22 07/09/23 History Insulin Lispro [humaLOG Kwikpen] See Protocol SQ AC-TID 08/30/22 07/09/23 History Ferrous Sulfate [Iron (65 MG 325 mg PO DAILY 01/30/23 07/09/23 History Elemental)] Lidocaine-Prilocaine Cream [Emla 1 applic TOPICAL DIRECTED PRN 01/30/23 07/09/23 History Cream 2.5%/2.5%] lamoTRIgine [LaMICtal] 150 mg PO DAILY 01/30/23 07/09/23 History Acetaminophen/Diphenhydramine 1 tab PO HS 07/09/23 07/09/23 History [Tylenol PM 500-25mg] Carbidopa-Levodopa 25-250 mg 1 tab PO TID 07/09/23 07/09/23 History [Sinemet 25-250] Divalproex Sodium [Depakote] 1,000 mg PO HS 07/09/23 07/09/23 History Divalproex [Depakote] 250 mg PO HS 07/09/23 07/09/23 History Ibuprofen [Motrin Ib] 600 mg PO DAILY PRN 07/09/23 07/09/23 History Lidocaine 5% Patch [Lidoderm] 1 patch TRANSDERM DAILY PRN 07/09/23 07/09/23 History Allergies Allergy/AdvReac Type Severity Reaction Status Date / Time No Known Allergies Allergy Verified 07/09/23 19:39 Physical Exam Vitals: Vital Signs Temp Pulse Resp BP Pulse Ox 07/09/23 18:16 98.1 F 61 16 110/58 96 07/09/23 12:43 98.0 F 66 17 111/57 98 Intake and Output 07/09/23 07/09/23 07/09/23 06:59 14:59 22:59 Other: Weight 80.739 kg Results CBC & Chem 7: 07/09/23 14:00 07/10/23 06:31 Labs: Abnormal Lab Results - Last 24 Hours (Table) 07/09/23 07/09/23 07/09/23 Range/Units 14:00 14:00 17:39 RBC 3.46 L (4.30-5.90) m/uL Hgb 10.8 L (13.0-17.5) gm/dL Hct 31.7 L (39.0-53.0) % Plt Count 119 L (150-450) k/uL Sodium 133 L (137-145) mmol/L Chloride 97 L (98-107) mmol/L BUN 97 H (9-20) mg/dL Creatinine 7.03 H* (0.66-1.25) mg/dL Glucose 179 H (74-99) mg/dL Total Protein 5.5 L (6.3-8.2) g/dL Albumin 3.1 L (3.5-5.0) g/dL Lipase 582 H (23-300) U/L Urine Protein Trace H (Negative) Urine Glucose (UA) Trace H (Negative) Urine Blood Small H (Negative) Urine RBC 6 H (0-5) /hpf Urine Mucus Rare H (None) /hpf
[2023-07-10] MEDS: ACETAMINOPHEN TAB 500 MG TAB PO SCH (19:56)
[2023-07-10] MEDS: ATORVASTATIN 10 MG TAB PO SCH (19:56)
[2023-07-10] MEDS: FENOFIBRATE 54 MG TAB PO SCH (19:56)
[2023-07-10] MEDS: diphenhydrAMINE 25 MG CAP PO SCH (19:56)
[2023-07-10] MEDS: DIVALPROEX 500 MG TABLET.DR PO SCH (19:57)
[2023-07-10] MEDS: DIVALPROEX 250 MG TABLET.DR PO SCH (19:57)
[2023-07-10 20:04] LABS: Glucose,Whole Blood 162 mg/dL (70-110)
[2023-07-11] MEDS: LEVOTHYROXINE 50 MCG TAB PO SCH (05:44)
[2023-07-11] MEDS: LEVOTHYROXINE 100 MCG TAB PO SCH (05:44)
[2023-07-11 07:38] LABS: Glucose,Whole Blood 64 mg/dL (70-110)
[2023-07-11] MEDS: INSULIN ASPART (NovoLOG) 100 UNIT/ML VIAL SQ SCH ×4 (07:49→21:19)
[2023-07-11 07:55] LABS: Glucose,Whole Blood 84 mg/dL (70-110)
[2023-07-11] MEDS: FERROUS SULFATE 325 MG TAB PO SCH (08:08)
[2023-07-11] MEDS: CARBIDOPA-LEVODOPA 25-250 MG 1 EACH TAB PO SCH ×3 (08:08→21:19)
[2023-07-11] MEDS: lamoTRIgine 100 MG TAB PO SCH (08:08)
[2023-07-11] MEDS: ESCITALOPRAM 20 MG TAB PO SCH (08:08)
[2023-07-11] MEDS: FOLIC ACID 1 MG TAB PO SCH (08:08)
[2023-07-11] MEDS: HEPARIN SODIUM,PORCINE 5,000 UNIT/ML 1 ML VIAL SQ SCH ×2 (08:09→19:51)
[2023-07-11] MEDS: CYANOCOBALAMIN 500 MCG TAB PO SCH (08:09)
--- NOTE | 2023-07-11 09:18 | XR ---
EXAMINATION TYPE: XR thoracic spine 2V DATE OF EXAM: 07/11/2023 COMPARISON: 01/29/2016 HISTORY: Pain TECHNIQUE: 3 views submitted FINDINGS: Alignment is anatomic. There is no compression deformities. Multilevel hypertrophic and degenerative change. Correlate for diffuse idiopathic skeletal hyperostosis. Diffuse idiopathic skeletal hyperost osis. Hypertrophic degenerative changes are seen involving the visualized lower cervical spine. IMPRESSION: 1. Multilevel moderate degenerative disc disease correlate for DISH
--- NOTE | 2023-07-11 09:33 | XR ---
EXAM TYPE: LUMBAR SPINE X RAY SERIES COMPARISON: NONE HISTORY: Pain TECHNIQUE: 4 views are submitted. FINDINGS: Alignment is anatomic. The pedicles are intact. The transverse processes are intact. There is diff use osteopenia with multilevel hypertrophic and degenerative changes of the spine most marked at L5-S 1. Facet arthropathy. Bilateral foraminal management. Vascular calcifications seen. IMPRESSION: 1. Diffuse osteopenia with multilevel degenerative disc disease facet arthropathy. Suspect multilevel foraminal encroachment.
--- NOTE | 2023-07-11 09:57 | P.CNOR ---
History of Present Illness - [facility] Consult date: 07/11/23 Requesting physician: Kimberly Gerardo Consult reason: low back pain History of present illness: History of Presenting Illness Patient is a pleasant 77-year-old male who presented to the ER due to increased back pain. Patient is known to our services. He was seen in our office 06/25/23. Patient was to have follow up appt with Dr. Echols today in office. Since his last office visit patient went to [place] to stay with his daughter and has had x3 falls over the past weekend. He is normally ambulatory with a walker and lives alone. Patient has a past medical history of hypertension, hyperlipidemia, hypothyroidism, diabetes mellitus type 2, end-stage renal disease on hemodialysis Saturday, Parkinson's disease, and bipolar disor kyle. Past Orthopedic history of bilateral knee replacement, left heel bone spur, and left shoulder arthroscopy. Patient reports a dull burning lumbar pain that has been ongoing for 30 years and progressing over the past 2 years. He states that recently he has had an increase of uncontrolled pain over the past week and frequent falls. Patient denies any radicular symptoms or numbness/tingling to the bilateral lower extremities. Patient does state he has intermittent shooting pain into bilatera l groin. Mr. Short symptoms are exacerbated with prolonged ambulation and changing position from sitting to standing. Patient does have a history of Parkinson's as well and with his symptoms it is making it very difficult for him to complete many of his daily tasks. For his symptoms, the patient has been taking Tylenol 3, lidocaine patches, and Motrin. For treatment of his symptoms, patient has trialed PT with exacerbation of his symptoms and has also had x2 KENNEY of the lumbar spine through PM&R without relief. Otherwise the patient denies any f/c/sob/cp, no bladder or bowel retention/incontinence, no perineal numbness/tingling. CT of the Lumbar spine taken on 06/25/23 demonstrates moderate multilevel degenerative disc disease and facet arthropathy. This is most prominent at L3-L4 and L4-L5. No evidence of fractures of the lumbar spine. XR of the lumbar spine taken 07/11/23 demonstrates diffuse osteopenia and multilevel facet arthropathy. XR of the thoracic spine taken on 07/11/23 demonstrates multilevel moderate degenerative disc disease correlate for DISH. Review of Systems Pertinent positives and negatives as discussed in HPI, a complete review of systems was performed and all other systems are negative. Physical Examination General: The patient is awake and alert, in no acute distress Skin: Skin is warm and dry with no obvious rashes or lesions. Eye: Pupils are equal, round and reactive to light, extra-ocular movements are intact; there is normal conjunctiva bilaterally. Neck: The neck is supple, there is no tenderness and ROM intact. Cardiovascular: There is a regular rate and rhythm. No murmur, rub or gallop is appreciated. Respiratory: Lungs are clear to auscultation, respirations are non-labored, breath sounds are equal. Gastrointestinal: Soft, non-distended, non-tender abdomen. Back: There is mild tenderness to palpation in the midline lumbar region. There is no obvious deformity. Musculoskeletal: Shoulder abduction 5/5, elbow flexors 5/5, wrist dorsiflexors 5/5. finger abductor 5/5, vpk teacher 5/5, hip flexor 4/5, knee flexor 5/5, ankle dorsiflexor 5/5, ankle plantarflexion 5/5 and extensor hallucis 5/5. Neurological: CN 2-12 intact. There are no obvious motor or sensory deficits. Movement and coordination equal and intact. Sensory exam to light touch intact C5-T1 and intact from L2-S1. Reflexes 2/4 in bilateral upper and lower extremities. Negative Hoffmans, babinski, and clonus signs. Psychiatric: Cooperative, appropriate mood & affect, normal judgment. Assessment and Plan Lumbar spondylosis Multilevel bilateral foraminal stenosis Mechanical low back pain Frequent falls Multiple complex comorbidities At this time we do not recommend any emergent/urgent orthopedic surgical intervention. Recommend to continue with conservative measures at this time. Optimize pain control and have patient follow up outpatient in our office with Dr. Echols. 2. Appreciate medical management 3. Pain management - Continue with IV and Oral pain medications, patient may benefit from trail of steroids. 4. GI prophylaxis - per medicine 5. DVT prophylaxis - Heparin 6. PT/OT - weightbearing as tolerated with a walker as needed. 7. Appreciate consult I reviewed and discussed this case with my attending Dr. Echols, whom has reviewed this chart and films and is in agreement with assessment and plan of care as outlined above. I have personally seen and examined the patient, performed the documentation and the assessment and plan as written. Number of minutes spent on the visit: 20m. Past Medical History Past Medical History: Diabetes Mellitus, Hearing Disorder / Deafness, Hyperlipidemia, Osteoarthritis (OA), Renal Disease, Sleep Apnea/CPAP/BIPAP, Thyroid Disorder Additional Past Medical History / Comment(s): Heart murmer, Parkinson's, CPAP use, hard of hearing. History of Any Multi-Drug Resistant Organisms: None Reported Past Surgical History: Orthopedic Surgery, Tonsillectomy Additional Past Surgical History / Comment(s): Bilateral knee surgery, left foot bone spur, right cataract removed, left shoulder arthroscopy, peritoneal dialysis catheter placed. Past Anesthesia/Blood Transfusion Reactions: No Reported Reaction Past Psychological History: Anxiety, Bipolar, Depression Smoking Status: Former smoker Past Alcohol Use History: None Reported Past Drug Use History: None Reported - Past Family History Father Family Medical History: Cancer Mother Additional Family Medical History / Comment(s): Mother at age 74 from heart failure. Brother(s) Additional Family Medical History / Comment(s): Patient has one brother and one sister both have diabetes. Patient's 3 children with no major medical problems. Medications and Allergies Home Medications Medication Instructions Recorded Confirmed Type Levothyroxine Sodium [Synthroid] 200 mcg PO DAILY 01/29/16 07/09/23 History Lovastatin [Mevacor] 40 mg PO HS 01/29/16 07/09/23 History Escitalopram [Lexapro] 20 mg PO DAILY 11/06/19 07/09/23 History Fenofibrate 54 mg PO HS 02/19/22 07/09/23 History Insulin Lispro [humaLOG Kwikpen] See Protocol SQ AC-TID 08/30/22 07/09/23 History Ferrous Sulfate [Iron (65 MG 325 mg PO DAILY 01/30/23 07/09/23 History Elemental)] Lidocaine-Prilocaine Cream [Emla 1 applic TOPICAL DIRECTED PRN 01/30/23 07/09/23 History Cream 2.5%/2.5%] lamoTRIgine [LaMICtal] 150 mg PO DAILY 01/30/23 07/09/23 History Acetaminophen/Diphenhydramine 1 tab PO HS 07/09/23 07/09/23 History [Tylenol PM 500-25mg] Carbidopa-Levodopa 25-250 mg 1 tab PO TID 07/09/23 07/09/23 History [Sinemet 25-250] Divalproex Sodium [Depakote] 1,000 mg PO HS 07/09/23 07/09/23 History Divalproex [Depakote] 250 mg PO HS 07/09/23 07/09/23 History Ibuprofen [Motrin Ib] 600 mg PO DAILY PRN 07/09/23 07/09/23 History Lidocaine 5% Patch [Lidoderm] 1 patch TRANSDERM DAILY PRN 07/09/23 07/09/23 History Allergies Allergy/AdvReac Type Severity Reaction Status Date / Time No Known Allergies Allergy Verified 07/09/23 19:39 Results - Labs Labs: Abnormal Lab Results - Last 24 Hours (Table) 07/10/23 07/10/23 07/10/23 Range/Units 06:31 13:25 20:02 Potassium 6.0 H (3.5-5.1) mmol/L Carbon Dioxide 21 L (22-30) mmol/L BUN 106 H* (9-20) mg/dL Creatinine 7.55 H* (0.66-1.25) mg/dL POC Glucose (mg/dL) 162 H (70-110) mg/dL Phosphorus 6.8 H (2.5-4.5) mg/dL Iron 190 H (65-175) UG/DL % Saturation 64.63 H (15.00-50.00) Ferritin 1427.0 H (22.0-322.0) ng/mL Total Protein 5.6 L (6.3-8.2) g/dL Albumin 2.9 L (3.5-5.0) g/dL 07/11/23 Range/Units 07:31 Potassium (3.5-5.1) mmol/L Carbon Dioxide (22-30) mmol/L BUN (9-20) mg/dL Creatinine (0.66-1.25) mg/dL POC Glucose (mg/dL) 64 L (70-110) mg/dL Phosphorus (2.5-4.5) mg/dL Iron (65-175) UG/DL % Saturation (15.00-50.00) Ferritin (22.0-322.0) ng/mL Total Protein (6.3-8.2) g/dL Albumin (3.5-5.0) g/dL H & H 09/05/23 Range/Units 14:00 Hgb 10.8 L (13.0-17.5) gm/dL Hct 31.7 L (39.0-53.0) % Result Diagrams: 07/09/23 14:00 07/10/23 06:31
--- NOTE | 2023-07-11 11:25 | P.PN ---
Subjective Patient is seen in follow-up for end-stage renal disease. He is maintained on hemodialysis on Saturday schedule. No problems with dialysis yesterday. Complains of back discomfort. Vital signs are stable. General: No acute distress. HEENT: Head exam is unremarkable. LUNGS: No audible rhonchi or wheezes. HEART: Rate and Rhythm are regular. ABDOMEN: Nontender. EXTREMITITES: No edema. Objective - Vital Signs Vital signs: Vital Signs Temp 98 F 07/11/23 09:51 Pulse 55 L 07/11/23 09:51 Resp 16 07/11/23 09:51 BP 121/63 07/11/23 09:51 Pulse Ox 94 L 07/11/23 08:00 FiO2 Intake & Output 07/10/23 07/11/23 07/11/23 18:59 06:59 18:59 Intake Total 240 300 Output Total 141 473 7414 Balance 40 -300 -3200 Weight 80.739 kg Intake: Intake, IV Titration 240 Amount Sodium Chloride 0.9% 1, 240 000 ml @ 75 mls/hr IV . [id number] STA Rx#:[id number] Hemodialysis 300 Output: Urine 200 300 Hemodialysis 3500 Other: Voiding Method Toilet Toilet Toilet - Labs CBC & Chem 7: 07/09/23 14:00 07/10/23 06:31 Labs: Abnormal Lab Results - Last 24 Hours (Table) 07/10/23 07/10/23 07/10/23 Range/Units 06:31 13:25 20:02 Potassium 6.0 H (3.5-5.1) mmol/L Carbon Dioxide 21 L (22-30) mmol/L BUN 106 H* (9-20) mg/dL Creatinine 7.55 H* (0.66-1.25) mg/dL POC Glucose (mg/dL) 162 H (70-110) mg/dL Phosphorus 6.8 H (2.5-4.5) mg/dL Iron 190 H (65-175) UG/DL % Saturation 64.63 H (15.00-50.00) Ferritin 1427.0 H (22.0-322.0) ng/mL Total Protein 5.6 L (6.3-8.2) g/dL Albumin 2.9 L (3.5-5.0) g/dL 07/11/23 Range/Units 07:31 Potassium (3.5-5.1) mmol/L Carbon Dioxide (22-30) mmol/L BUN (9-20) mg/dL Creatinine (0.66-1.25) mg/dL POC Glucose (mg/dL) 64 L (70-110) mg/dL Phosphorus (2.5-4.5) mg/dL Iron (65-175) UG/DL % Saturation (15.00-50.00) Ferritin (22.0-322.0) ng/mL Total Protein (6.3-8.2) g/dL Albumin (3.5-5.0) g/dL Assessment and Plan Plan: Assessment: 1. End-stage renal disease maintained on hemodialysis on Saturday schedule via right upper extremity AV fistula. 2. Generalized weakness with recurrent falls. 3. Chronic diastolic CHF. 4. Anemia of chronic kidney disease. Iron replete. 5. Chronic kidney disease mineral bone disease. Phosphorous 6.8 dated 07/10/2023. 6. Back pain. Lumbar spondylosis, bilateral foraminal stenosis noted. Orthopedic surgery following. No surgeries plan. Plan: Hemodialysis tomorrow. Add Renvela with meals. Check potassium level today.
[2023-07-11 11:48] LABS: Glucose,Whole Blood 173 mg/dL (70-110)
[2023-07-11] MEDS: SEVELAMER 800 MG TAB PO SCH ×2 (12:27→17:44)
[2023-07-11 13:02] LABS: Basophils % (A) 0 %; Eosinophils # (A) 0.1 k/uL (0-0.7); Eosinophils % (A) 2 %; HCT 29.4 % (39.0-53.0); HGB 9.8 gm/dL (13.0-17.5); Lymphocytes # (A) 1.1 k/uL (1.0-4.8); Lymphocytes % (A) 42 %; MCH 31.2 pg (25.0-35.0); MCHC 33.4 g/dL (31.0-37.0); MCV 93.4 fL (80.0-100.0); Mean Platelet Volume 7.5; Monocytes # (A) 0.2 k/uL (0-1.0); Monocytes % (A) 7 %; Neutrophils # (A) 1.3 k/uL (1.3-7.7); Neutrophils % (A) 47 %; Platelet Count 114 k/uL (150-450); RBC 3.14 m/uL (4.30-5.90); RDW 14.5 % (11.5-15.5); WBC 2.6 k/uL (3.8-10.6)
--- NOTE | 2023-07-11 13:04 | P.PN ---
Subjective Progress Note Date: 07/10/23 HISTORY OF PRESENT ILLNESS This is a 77 year old male patient with past medical history of hypertension, hyperlipidemia, hypothyroidism, diabetes mellitus type 2, end-stage renal diseas e on hemodialysis Saturday, Parkinson's disease, bipolar disorder, patient has been having issues with weakness in both legs and has been falling alot over the past three days, he went to his daughter in [place] and he fell using his walker Saturday and Saturday and Saturday night after he went back home he had partial hemodialysis on saturday and he was supposed to see this t since he is not doing better after 2 epidurals and he is getting relief from pain management, patient has visited the ER recently on 07/02/2023 for right flank pain and had CT scan of the Abdomen and pelvis that did nor show evidence of any hydronephrosis , surprisingly his lipase was slight ly elevated and now with more elevation patient underwent US of the Abdomen that showed hydropic gallbladder and prominent CBD at 6 mm no evidence of cholecystitis and there was 2.5 cm rounded area at the lower pole of the right kidney likely Lobulation can not rule out mass , it was recommended to continue with monitoring with MRI as outpatient 07/10: patient is lying down in bed continues to have severe pain with ambulation and not able to participate in PT due to tremendous pain, he is getting dialysis, hi son at the bedside and his daughter were through [facility], we will check X-rays of the lumbar and thoracic spine to rule out any fractures and we will consult spine surgery as the patient is not able to move at all, we will start Nepro bid for protin intake, we will continue with current treatment plan , likely will need rehabilitation REVIEW OF SYSTEMS Constitutional: No fever, no chills, no night sweats. No weight change. Reported weakness, fatigue. No daytime sleepiness. HEENT: No headache. No nasal drainage or congestion. No epistaxis. No sore throat. Lungs: No shortness of breath, cough, no sputum production. No wheezing. Cardiovascular: No chest pain, no lower extremity edema. No palpitations. No paroxysmal nocturnal dyspnea. No orthopnea. No lightheadedness or dizziness. No syncopal episodes. Abdominal: positive for abdominal pain. No nausea, vomiting. No diarrhea. positive for constipation. No bloody or tarry stools. positive for loss of appetite. Genitourinary: No dysuria, increased frequency, urgency. No urinary retention. Musculoskeletal: No myalgias. Reported muscle weakness, reported gait dysfunction with chronic shuffling gait secondary to Parkinson's, reported frequent falls. positive for back pain and neck pain. Integumentary: No wounds, no lesions. No rash or pruritus. positive for bruising. No change in hair or nails. Neurologic: No aphasia. No facial droop. No change in mentation. No head injury. No headache. No paralysis. No paresthesia. Psychiatric: Reported depression. No anxiety. Endocrine: No abnormal blood sugars. No weight change. No excessive sweating or thirst. No cold intolerance. PHYSICAL EXAMINATION Gen: This is a 77-year-old male. He is resting in bed appears to be fairly comfortable. HEENT: Head is atraumatic, normocephalic. Pupils equal, round. Sclerae is anicteric. NECK: Supple. No JVD. No lymphadenopathy. No thyromegaly. LUNGS: Clear to auscultation. No wheezes or rhonchi. No intercostal retractions. HEART: Regular rate and rhythm. 2/6 systolic murmur at the left sternal border, no S3, no S4. ABDOMEN: Soft, mild tenderness in the midepigastric to right upper quadrant area Bowel sounds are present. No masses.. EXTREMITIES: No pedal edema. No calf tenderness. Dorsalis pedis posterior bilaterally NEUROLOGICAL: Patient is awake, alert and oriented x3. Cranial nerves 2 through 12 are grossly intact. Deep tendon reflexes 2+ symmetrical, muscle power 2/5 in the left lower extremity 4/5 in the right lower extremity and 4/5 in bilateral upper extremities. ASSESSMENT AND PLAN 1. Recurrent falls with acute on chronic back pain. we will continue with Flexeril 5 mg orally bid along with Tramadol 50 mg po q 6 h as needed, Morphine ordered for severe pain, PT and OT consult along with secondary social studies teacher consult for discharge planning, we will check lumbar and thoracic spine X-rays and we will consult spine surgery 2. End-stage renal disease on Saturday. Patient missed dialysis treatment on 01/29. Consult with Dr. Chavez appreciated. Patient is scheduled for hemodialysis today and again tomorrow.. 3. Hdropic Gallbladder with elevated Lipase . CT scan few days ago did not show evidence of pancreatitis, besides there was no Gallsrones, we will continue to monitor 4. Parkinson's disease. Consult with neurology. Patient is currently on Sinemet 03157 milligrams 3 times daily. 5. Hypertension. Patient not currently on medications. No documented episodes of hypotension 6. Hyperlipidemia. Continue atorvastatin 10 mg at bedtime, fenofibrate 54 mg at bedtime. 7. Hypothyroidism. Continue levothyroxine 200 g daily and 50 g Saturday through Saturday and 75 g on Saturday. TSH on 01/07 was 8.9, free T4 normal at 1.02. 8. Diabetes mellitus type 2. With recent A1c 7.0. Continue NovoLog scale before meals and at bedtime. 9. Bipolar disorder. Patient is on Depakote 1250 mg po qhs and we will continue with Lamictal 150 mg po daily and Lexparo 20 mg po daily 10. 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 Continue ferrous sulfate 325 mg daily. 11. DVT prophylaxis. Heparin subcu 5000 units every 12 hours. 12. GI prophylaxis. Pepcid 20 mg po daily 13. Medical debility. will require sub-Acute rehabilitation Objective - Vital Signs Vital signs: Vital Signs Temp 97.9 F 07/11/23 12:32 Pulse 62 07/11/23 12:32 Resp 20 07/11/23 12:32 BP 111/60 07/11/23 12:32 Pulse Ox 94 L 07/11/23 12:32 FiO2 Intake & Output 07/10/23 07/11/23 07/11/23 18:59 06:59 18:59 Intake Total 240 300 Output Total 595 461 8404 Balance 40 -300 -3200 Weight 80.739 kg Intake: Intake, IV Titration 240 Amount Sodium Chloride 0.9% 1, 240 000 ml @ 75 mls/hr IV . [id number] STA Rx#:[id number] Hemodialysis 300 Output: Urine 200 300 Hemodialysis 3500 Other: Voiding Method Toilet Toilet Toilet - Labs CBC & Chem 7: 07/09/23 14:00 07/11/23 11:40 Labs: Abnormal Lab Results - Last 24 Hours (Table) 07/10/23 07/10/23 07/10/23 Range/Units 06:31 13:25 20:02 Potassium 6.0 H (3.5-5.1) mmol/L Carbon Dioxide 21 L (22-30) mmol/L BUN 106 H* (9-20) mg/dL Creatinine 7.55 H* (0.66-1.25) mg/dL POC Glucose (mg/dL) 162 H (70-110) mg/dL Phosphorus 6.8 H (2.5-4.5) mg/dL Iron 190 H (65-175) UG/DL % Saturation 64.63 H (15.00-50.00) Ferritin 1427.0 H (22.0-322.0) ng/mL Total Protein 5.6 L (6.3-8.2) g/dL Albumin 2.9 L (3.5-5.0) g/dL 07/11/23 07/11/23 Range/Units 07:31 11:47 Potassium (3.5-5.1) mmol/L Carbon Dioxide (22-30) mmol/L BUN (9-20) mg/dL Creatinine (0.66-1.25) mg/dL POC Glucose (mg/dL) 64 L 173 H (70-110) mg/dL Phosphorus (2.5-4.5) mg/dL Iron (65-175) UG/DL % Saturation (15.00-50.00) Ferritin (22.0-322.0) ng/mL Total Protein (6.3-8.2) g/dL Albumin (3.5-5.0) g/dL
[2023-07-11 16:49] LABS: Glucose,Whole Blood 169 mg/dL (70-110)
[2023-07-11] MEDS: ACETAMINOPHEN TAB 500 MG TAB PO SCH (19:50)
[2023-07-11] MEDS: DIVALPROEX 500 MG TABLET.DR PO SCH (19:50)
[2023-07-11] MEDS: ATORVASTATIN 10 MG TAB PO SCH (19:51)
[2023-07-11] MEDS: DIVALPROEX 250 MG TABLET.DR PO SCH (19:52)
[2023-07-11] MEDS: diphenhydrAMINE 25 MG CAP PO SCH (19:52)
[2023-07-11] MEDS: FENOFIBRATE 54 MG TAB PO SCH (19:52)
[2023-07-11 20:41] LABS: Glucose,Whole Blood 217 mg/dL (70-110)
[2023-07-12] MEDS: LEVOTHYROXINE 100 MCG TAB PO SCH (05:51)
[2023-07-12] MEDS: LEVOTHYROXINE 50 MCG TAB PO SCH (05:51)
[2023-07-12 07:15] LABS: Glucose,Whole Blood 85 mg/dL (70-110)
[2023-07-12] MEDS: INSULIN ASPART (NovoLOG) 100 UNIT/ML VIAL SQ SCH ×4 (07:35→20:49)
[2023-07-12] MEDS: MORPHINE SULFATE 4 MG/ML SYRINGE IV PRN (08:10)
[2023-07-12] MEDS: CYANOCOBALAMIN 500 MCG TAB PO SCH (08:11)
[2023-07-12] MEDS: FOLIC ACID 1 MG TAB PO SCH (08:11)
[2023-07-12] MEDS: ESCITALOPRAM 20 MG TAB PO SCH (08:11)
[2023-07-12] MEDS: SEVELAMER 800 MG TAB PO SCH ×3 (08:11→18:03)
[2023-07-12] MEDS: FERROUS SULFATE 325 MG TAB PO SCH (08:11)
[2023-07-12] MEDS: HEPARIN SODIUM,PORCINE 5,000 UNIT/ML 1 ML VIAL SQ SCH ×2 (08:11→20:50)
[2023-07-12] MEDS: lamoTRIgine 100 MG TAB PO SCH (08:11)
[2023-07-12] MEDS: CARBIDOPA-LEVODOPA 25-250 MG 1 EACH TAB PO SCH ×3 (08:11→20:50)
--- NOTE | 2023-07-12 11:12 | P.PN ---
Subjective Patient is seen in follow-up for end-stage renal disease. He is maintained on hemodialysis on Saturday schedule. Tolerating dialysis well. No active complaints. Vital signs are stable. General: No acute distress. HEENT: Head exam is unremarkable. LUNGS: No audible rhonchi or wheezes. HEART: Rate and Rhythm are regular. ABDOMEN: Nontender. EXTREMITITES: No edema. Objective - Vital Signs Vital signs: Vital Signs Temp 98.4 F 07/12/23 07:21 Pulse 68 07/12/23 07:21 Resp 18 07/12/23 07:21 BP 130/73 07/12/23 07:21 Pulse Ox 96 07/12/23 07:21 FiO2 Intake & Output 07/11/23 07/12/23 07/12/23 18:59 06:59 18:59 Intake Total 300 Output Total 3500 Balance -3200 Intake: Hemodialysis 300 Output: Hemodialysis 3500 Other: Voiding Method Toilet Toilet Toilet # Voids 3 1 - Labs CBC & Chem 7: 07/11/23 12:00 07/11/23 11:40 Labs: Abnormal Lab Results - Last 24 Hours (Table) 07/11/23 07/11/23 07/11/23 Range/Units 11:47 12:00 16:47 WBC 2.6 L (3.8-10.6) k/uL RBC 3.14 L (4.30-5.90) m/uL Hgb 9.8 L (13.0-17.5) gm/dL Hct 29.4 L (39.0-53.0) % Plt Count 114 L (150-450) k/uL POC Glucose (mg/dL) 173 H 169 H (70-110) mg/dL 07/11/23 Range/Units 20:40 WBC (3.8-10.6) k/uL RBC (4.30-5.90) m/uL Hgb (13.0-17.5) gm/dL Hct (39.0-53.0) % Plt Count (150-450) k/uL POC Glucose (mg/dL) 217 H (70-110) mg/dL Assessment and Plan Plan: Assessment: 1. End-stage renal disease maintained on hemodialysis on Saturday schedule via right upper extremity AV fistula. 2. Generalized weakness with recurrent falls. 3. Chronic diastolic CHF. 4. Anemia of chronic kidney disease. Iron replete. 5. Chronic kidney disease mineral bone disease. Phosphorous 6.8 dated 07/10/2023.. 6. Back pain. Lumbar spondylosis, bilateral foraminal stenosis noted. Orthopedic surgery following. No surgeries planned. Plan: Currently seen while undergoing hemodialysis. Add Parviz.
[2023-07-12] MEDS ORDERED: DARBEPOETIN ALFA 40 MCG/0.4 ML SYRINGE SQ SCH (12:00)
[2023-07-12 12:38] LABS: Glucose,Whole Blood 112 mg/dL (70-110)
--- NOTE | 2023-07-12 15:44 | P.PN ---
Subjective Progress Note Date: 07/11/23 HISTORY OF PRESENT ILLNESS This is a 77 year old male patient with past medical history of hypertension, hyperlipidemia, hypothyroidism, diabetes mellitus type 2, end-stage renal diseas e on hemodialysis Saturday, Parkinson's disease, bipolar disorder, patient has been having issues with weakness in both legs and has been falling alot over the past three days, he went to his daughter in [place] and he fell using his walker Saturday and Saturday and Saturday night after he went back home he had partial hemodialysis on saturday and he was supposed to see this since he is not doing better after 2 epidurals and he is getting relief from pain management, patient has visited the ER recently on 07/02/2023 for right flank pain and had CT scan of the Abdomen and pelvis that did nor show evidence of any hydronephrosis , surprisingly his lipase was slight ly elevated and now with more elevation patient underwent US of the Abdomen that showed hydropic gallbladder and prominent CBD at 6 mm no evidence of cholecystitis and there was 2.5 cm rounded area at the lower pole of the right kidney likely Lobulation can not rule out mass , it was recommended to continue with monitoring with MRI as outpatient 07/10: patient is lying down in bed continues to have severe pain with ambulation and not able to participate in PT due to tremendous pain, he is getting dialysis, hi son at the bedside and his daughter were through [facility], we will check X-rays of the lumbar and thoracic spine to rule out any fractures and we will consult spine surgery as the patient is not able to move at all, we will start Nepro bid for protin intake, we will continue with current treatment plan , likely will need rehabilitation 07/11: Patient is lying down in bed , continues to have isues with severe back pain reviewed X-rays there is no fractures but significant DDD with spinal stenosis along with DISH, no plan for surgical intervention at this point, we will continue with current pain management and we will continue to work with PT and OT and possible ECF REVIEW OF SYSTEMS Constitutional: No fever, no chills, no night sweats. No weight change. Reported weakness, fatigue. No daytime sleepiness. HEENT: No headache. No nasal drainage or congestion. No epistaxis. No sore throat. Lungs: No shortness of breath, cough, no sputum production. No wheezing. Cardiovascular: No chest pain, no lower extremity edema. No palpitations. No paroxysmal nocturnal dyspnea. No orthopnea. No lightheadedness or dizziness. No syncopal episodes. Abdominal: positive for abdominal pain. No nausea, vomiting. No diarrhea. positive for constipation. No bloody or tarry stools. positive for loss of appetite. Genitourinary: No dysuria, increased frequency, urgency. No urinary retention. Musculoskeletal: No myalgias. Reported muscle weakness, reported gait dysfunction with chronic shuffling gait secondary to Parkinson's, reported frequent falls. positive for back pain and neck pain. Integumentary: No wounds, no lesions. No rash or pruritus. positive for bruising. No change in hair or nails. Neurologic: No aphasia. No facial droop. No change in mentation. No head injury. No headache. No paralysis. No paresthesia. Psychiatric: Reported depression. No anxiety. Endocrine: No abnormal blood sugars. No weight change. No excessive sweating or thirst. No cold intolerance. PHYSICAL EXAMINATION Gen: This is a 77-year-old male. He is resting in bed appears to be fairly comfortable. HEENT: Head is atraumatic, normocephalic. Pupils equal, round. Sclerae is anicteric. NECK: Supple. No JVD. No lymphadenopathy. No thyromegaly. LUNGS: Clear to auscultation. No wheezes or rhonchi. No intercostal retractions. HEART: Regular rate and rhythm. 2/6 systolic murmur at the left sternal border, no S3, no S4. ABDOMEN: Soft, mild tenderness in the midepigastric to right upper quadrant area Bowel sounds are present. No masses.. EXTREMITIES: No pedal edema. No calf tenderness. Dorsalis pedis posterior bilaterally NEUROLOGICAL: Patient is awake, alert and oriented x3. Cranial nerves 2 through 12 are grossly intact. Deep tendon reflexes 2+ symmetrical, muscle power 2/5 in the left lower extremity 4/5 in the right lower extremity and 4/5 in bilateral upper extremities. ASSESSMENT AND PLAN 1. Recurrent falls with acute on chronic back pain. we will continue with Flexeril 5 mg orally bid along with Tramadol 50 mg po q 6 h as needed, Morphine ordered for severe pain, PT and OT consult along with director social service consult for discharge planning, X-rays were reviewed and spine surgery consult is in place 2. End-stage renal disease on Saturday. Patient missed dialysis treatment on 01/29. Consult with Dr. Scott veliz. Patient is scheduled for hemodialysis today and again tomorrow.. 3. Hdropic Gallbladder with elevated Lipase . CT scan few days ago did not show evidence of pancreatitis, besides there was no Gallsrones, we will continue to m onitor 4. Parkinson's disease. Consult with neurology. Patient is currently on Sinemet 81004 milligrams 3 times daily. 5. Hypertension. Patient not currently on medications. No documented episodes of hypotension 6. Hyperlipidemia. Continue atorvastatin 10 mg at bedtime, fenofibrate 54 mg at bedtime. 7. Hypothyroidism. Continue levothyroxine 200 g daily and 50 g Saturday through Saturday and 75 g on Saturday. TSH on 01/07 was 8.9, free T4 normal at 1.02. 8. Diabetes mellitus type 2. With recent A1c 7.0. Continue NovoLog scale before meals and at bedtime. 9. Bipolar disorder. Patient is on Depakote 1250 mg po qhs and we will continue with Lamictal 150 mg po daily and Lexparo 20 mg po daily 10. 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 Continue ferrous sulfate 325 mg daily. 11. DVT prophylaxis. Heparin subcu 5000 units every 12 hours. 12. GI prophylaxis. Pepcid 20 mg po daily 13. Medical debility. will require sub-Acute rehabilitation Objective - Vital Signs Vital signs: Vital Signs Temp 97.9 F 07/11/23 12:32 Pulse 62 07/11/23 12:32 Resp 20 07/11/23 12:32 BP 111/60 07/11/23 12:32 Pulse Ox 94 L 07/11/23 12:32 FiO2 Intake & Output 07/10/23 07/11/23 07/11/23 18:59 06:59 18:59 Intake Total 240 300 Output Total 263 250 3780 Balance 40 -300 -3200 Weight 80.739 kg Intake: Intake, IV Titration 240 Amount Sodium Chloride 0.9% 1, 240 000 ml @ 75 mls/hr IV . [id number] STA Rx#:[id number] Hemodialysis 300 Output: Urine 200 300 Hemodialysis 3500 Other: Voiding Method Toilet Toilet Toilet - Labs CBC & Chem 7: 07/11/23 12:00 07/11/23 11:40 Labs: Abnormal Lab Results - Last 24 Hours (Table) 07/10/23 07/10/23 07/10/23 Range/Units 06:31 13:25 20:02 WBC (3.8-10.6) k/uL RBC (4.30-5.90) m/uL Hgb (13.0-17.5) gm/dL Hct (39.0-53.0) % Plt Count (150-450) k/uL Potassium 6.0 H (3.5-5.1) mmol/L Carbon Dioxide 21 L (22-30) mmol/L BUN 106 H* (9-20) mg/dL Creatinine 7.55 H* (0.66-1.25) mg/dL POC Glucose (mg/dL) 162 H (70-110) mg/dL Phosphorus 6.8 H (2.5-4.5) mg/dL Iron 190 H (65-175) UG/DL % Saturation 64.63 H (15.00-50.00) Ferritin 1427.0 H (22.0-322.0) ng/mL Total Protein 5.6 L (6.3-8.2) g/dL Albumin 2.9 L (3.5-5.0) g/dL 07/11/23 07/11/23 07/11/23 Range/Units 07:31 11:47 12:00 WBC 2.6 L (3.8-10.6) k/uL RBC 3.14 L (4.30-5.90) m/uL Hgb 9.8 L (13.0-17.5) gm/dL Hct 29.4 L (39.0-53.0) % Plt Count 114 L (150-450) k/uL Potassium (3.5-5.1) mmol/L Carbon Dioxide (22-30) mmol/L BUN (9-20) mg/dL Creatinine (0.66-1.25) mg/dL POC Glucose (mg/dL) 64 L 173 H (70-110) mg/dL Phosphorus (2.5-4.5) mg/dL Iron (65-175) UG/DL % Saturation (15.00-50.00) Ferritin (22.0-322.0) ng/mL Total Protein (6.3-8.2) g/dL Albumin (3.5-5.0) g/dL
[2023-07-12 18:09] LABS: Glucose,Whole Blood 224 mg/dL (70-110)
[2023-07-12] MEDS: traMADol 50 MG TAB PO PRN (18:19)
[2023-07-12 20:20] LABS: Glucose,Whole Blood 150 mg/dL (70-110)
[2023-07-12] MEDS: DIVALPROEX 250 MG TABLET.DR PO SCH (20:50)
[2023-07-12] MEDS: FENOFIBRATE 54 MG TAB PO SCH (20:50)
[2023-07-12] MEDS: DIVALPROEX 500 MG TABLET.DR PO SCH (20:50)
[2023-07-12] MEDS: diphenhydrAMINE 25 MG CAP PO SCH (20:50)
[2023-07-12] MEDS: ATORVASTATIN 10 MG TAB PO SCH (20:50)
[2023-07-12] MEDS: ACETAMINOPHEN TAB 500 MG TAB PO SCH (20:50)
[2023-07-12] MEDS ORDERED: ONDANSETRON 4 MG/2 ML VIAL IVP PRN (21:43)
[2023-07-13] MEDS: LEVOTHYROXINE 100 MCG TAB PO SCH (06:08)
[2023-07-13] MEDS: LEVOTHYROXINE 50 MCG TAB PO SCH (06:08)
[2023-07-13 07:56] LABS: Glucose,Whole Blood 83 mg/dL (70-110)
[2023-07-13 07:58] LABS: Basophils % (A) 0 %; Eosinophils # (A) 0.1 k/uL (0-0.7); Eosinophils % (A) 1 %; HCT 31.4 % (39.0-53.0); HGB 10.4 gm/dL (13.0-17.5); Lymphocytes # (A) 1.2 k/uL (1.0-4.8); Lymphocytes % (A) 30 %; MCH 31.2 pg (25.0-35.0); MCHC 32.9 g/dL (31.0-37.0); MCV 94.8 fL (80.0-100.0); Monocytes # (A) 0.3 k/uL (0-1.0); Monocytes % (A) 7 %; Neutrophils # (A) 2.5 k/uL (1.3-7.7); Neutrophils % (A) 61 %; Platelet Count 108 k/uL (150-450); RBC 3.32 m/uL (4.30-5.90); RDW 14.6 % (11.5-15.5); WBC 4.2 k/uL (3.8-10.6)
[2023-07-13] MEDS: INSULIN ASPART (NovoLOG) 100 UNIT/ML VIAL SQ SCH ×4 (08:34→21:16)
[2023-07-13] MEDS: lamoTRIgine 100 MG TAB PO SCH (08:39)
[2023-07-13] MEDS: CYANOCOBALAMIN 500 MCG TAB PO SCH (08:39)
[2023-07-13] MEDS: HEPARIN SODIUM,PORCINE 5,000 UNIT/ML 1 ML VIAL SQ SCH ×2 (08:39→21:16)
[2023-07-13 08:40] LABS: ALT <6 U/L (4-49); AST 27 U/L (17-59); African American GFR (CKD) 15 (>60 ml/min/1.73 sqM); Albumin 2.7 g/dL (3.5-5.0); Albumin/Globulin Ratio 1.1; Alkaline Phosphatase 56 U/L (38-126); Anion Gap 4 mmol/L; Blood Urea Nitrogen 33 mg/dL (9-20); Calcium 8.7 mg/dL (8.4-10.2); Carbon Dioxide 33 mmol/L (22-30); Chloride 96 mmol/L (98-107); Globulin 2.5 g/dL; Glucose 108 mg/dL (74-99); Non-African American GFR(CKD) 13 (>60 ml/min/1.73 sqM); Potassium 4.8 mmol/L (3.5-5.1); Sodium 133 mmol/L (137-145); Total Bilirubin 0.5 mg/dL (0.2-1.3); Total Protein 5.2 g/dL (6.3-8.2)
[2023-07-13] MEDS: SEVELAMER 800 MG TAB PO SCH ×3 (08:40→17:23)
[2023-07-13] MEDS: FOLIC ACID 1 MG TAB PO SCH (08:40)
[2023-07-13] MEDS: FERROUS SULFATE 325 MG TAB PO SCH (08:40)
[2023-07-13] MEDS: CARBIDOPA-LEVODOPA 25-250 MG 1 EACH TAB PO SCH ×3 (08:40→21:15)
[2023-07-13] MEDS: ESCITALOPRAM 20 MG TAB PO SCH (08:40)
--- NOTE | 2023-07-13 11:47 | P.PN ---
Subjective Progress Note Date: 07/12/23 HISTORY OF PRESENT ILLNESS This is a 77 year old male patient with past medical history of hypertension, hyperlipidemia, hypothyroidism, diabetes mellitus type 2, end-stage renal diseas e on hemodialysis Saturday, Parkinson's disease, bipolar disorder, patient has been having issues with weakness in both legs and has been falling alot over the past three days, he went to his daughter in [place] and he fell using his walker Saturday and Saturday and Saturday night after he went back home he had partial hemodialysis on saturday and he was supposed to see this since he is not doing better after 2 epidurals and he is getting relief from pain management, patient has visited the ER recently on 07/02/2023 for right flank pain and had CT scan of the Abdomen and pelvis that did nor show evidence of any hydronephrosis , surprisingly his lipase was slight ly elevated and now with more elevation patient underwent US of the Abdomen that showed hydropic gallbladder and prominent CBD at 6 mm no evidence of cholecystitis and there was 2.5 cm rounded area at the lower pole of the right kidney likely Lobulation can not rule out mass , it was recommended to continue with monitoring with MRI as outpatient 07/10: patient is lying down in bed continues to have severe pain with ambulation and not able to participate in PT due to tremendous pain, he is getting dialysis, hi son at the bedside and his daughter were through [facility], we will check X-rays of the lumbar and thoracic spine to rule out any fractures and we will consult spine surgery as the patient is not able to move at all, we will start Nepro bid for protin intake, we will continue with current treatment plan , likely will need rehabilitation 07/11: Patient is lying down in bed , continues to have isues with severe back pain reviewed X-rays there is no fractures but significant DDD with spinal stenosis along with DISH, no plan for surgical intervention at this point, we will continue with current pain management and we will continue to work with PT and OT and possible ECF. 07/12: Patient is feeling better today, he sat up at the edge of the bed and we will see if patient can be transferred to [facility] on the [address] in [place], if not will be on Saturday after HD, we will continue with current treatment paln, spine surgery not planing for any surgical intervention at this point and we will continue with conservative management along with PT REVIEW OF SYSTEMS Constitutional: No fever, no chills, no night sweats. No weight change. Reported weakness, fatigue. No daytime sleepiness. HEENT: No headache. No nasal drainage or congestion. No epistaxis. No sore throat. Lungs: No shortness of breath, cough, no sputum production. No wheezing. Cardiovascular: No chest pain, no lower extremity edema. No palpitations. No paroxysmal nocturnal dyspnea. No orthopnea. No lightheadedness or dizziness. No syncopal episodes. Abdominal: positive for abdominal pain. No nausea, vomiting. No diarrhea. positive for constipation. No bloody or tarry stools. positive for loss of appetite. Genitourinary: No dysuria, increased frequency, urgency. No urinary retention. Musculoskeletal: No myalgias. Reported muscle weakness, reported gait dysfunction with chronic shuffling gait secondary to Parkinson's, reported frequent falls. positive for back pain and neck pain. Integumentary: No wounds, no lesions. No rash or pruritus. positive for bruising. No change in hair or nails. Neurologic: No aphasia. No facial droop. No change in mentation. No head injury. No headache. No paralysis. No paresthesia. Psychiatric: Reported depression. No anxiety. Endocrine: No abnormal blood sugars. No weight change. No excessive sweating or thirst. No cold intolerance. PHYSICAL EXAMINATION Gen: This is a 77-year-old male. He is resting in bed appears to be fairly comfortable. HEENT: Head is atraumatic, normocephalic. Pupils equal, round. Sclerae is anicteric. NECK: Supple. No JVD. No lymphadenopathy. No thyromegaly. LUNGS: Clear to auscultation. No wheezes or rhonchi. No intercostal retractions. HEART: Regular rate and rhythm. 2/6 systolic murmur at the left sternal border, no S3, no S4. ABDOMEN: Soft, mild tenderness in the midepigastric to right upper quadrant area Bowel sounds are present. No masses.. EXTREMITIES: No pedal edema. No calf tenderness. Dorsalis pedis posterior bilaterally NEUROLOGICAL: Patient is awake, alert and oriented x3. Cranial nerves 2 through 12 are grossly intact. Deep tendon reflexes 2+ symmetrical, muscle power 2/5 in the left lower extremity 4/5 in the right lower extremity and 4/5 in bilateral upper extremities. ASSESSMENT AND PLAN 1. Recurrent falls with acute on chronic back pain. we will continue with Flexeril 5 mg orally bid along with Tramadol 50 mg po q 6 h as needed, Morphine ordered for severe pain, PT and OT consult along with web content & social media manager consult for discharge planning, X-rays were reviewed and spine surgery consult is in place 2. End-stage renal disease on Saturday. Patient missed dialysis treatment on 01/29. Consult with Dr. Scott veliz. Patient is scheduled for hemodialysis today and again tomorrow.. 3. Hdropic Gallbladder with elevated Lipase . CT scan few days ago did not show evidence of pancreatitis, besides there was no Gallsrones, we will continue to monitor 4. Parkinson's disease. Consult with neurology. Patient is currently on Sinemet 45383 milligrams 3 times daily. 5. Hypertension. Patient not currently on medications. No documented episodes of hypotension 6. Hyperlipidemia. Continue atorvastatin 10 mg at bedtime, fenofibrate 54 mg at bedtime. 7. Hypothyroidism. Continue levothyroxine 200 g daily and 50 g Saturday through Saturday and 75 g on Saturday. TSH on 01/07 was 8.9, free T4 normal at 1.02. 8. Diabetes mellitus type 2. With recent A1c 7.0. Continue NovoLog scale before meals and at bedtime. 9. Bipolar disorder. Patient is on Depakote 1250 mg po qhs and we will continue with Lamictal 150 mg po daily and Lexparo 20 mg po daily 10. 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 Continue ferrous sulfate 325 mg daily. 11. DVT prophylaxis. Heparin subcu 5000 units every 12 hours. 12. GI prophylaxis. Pepcid 20 mg po daily 13. Medical debility. will require sub-Acute rehabilitation hopefully tomorrow or Saturday Objective - Vital Signs Vital signs: Vital Signs Temp 98 F 07/12/23 11:30 Pulse 62 07/12/23 11:30 Resp 18 07/12/23 11:30 BP 101/52 07/12/23 11:30 Pulse Ox 96 07/12/23 11:30 FiO2 Intake & Output 07/11/23 07/12/23 07/12/23 18:59 06:59 18:59 Intake Total 300 Output Total 3500 Balance -3200 Weight 80.739 kg Intake: Hemodialysis 300 Output: Hemodialysis 3500 Other: Voiding Method Toilet Toilet Toilet # Voids 3 1 - Labs CBC & Chem 7: 07/13/23 06:50 07/13/23 06:50 Labs: Abnormal Lab Results - Last 24 Hours (Table) 07/11/23 07/11/23 07/12/23 Range/Units 16:47 20:40 12:36 POC Glucose (mg/dL) 169 H 217 H 112 H (70-110) mg/dL
[2023-07-13 12:44] LABS: Glucose,Whole Blood 171 mg/dL (70-110)
--- NOTE | 2023-07-13 13:17 | P.PN ---
Subjective Progress Note Date: 07/13/23 Follow-up for ESRD Objective - Vital Signs Vital signs: Vital Signs Temp 97.9 F 07/13/23 07:49 Pulse 82 07/13/23 07:49 Resp 19 07/13/23 07:49 BP 145/63 07/13/23 07:49 Pulse Ox 95 07/13/23 07:49 FiO2 Intake & Output 07/12/23 07/13/23 07/13/23 18:59 06:59 18:59 Intake Total 300 Output Total 2200 Balance -1900 Weight 80.739 kg Intake: Hemodialysis 300 Output: Hemodialysis 2200 Other: Voiding Method Toilet Toilet Toilet # Voids 3 1 1 # Bowel Movements 1 - Exam No acute distress S1-S2 heard Decreased breath sounds No edema - Labs CBC & Chem 7: 07/13/23 06:50 07/13/23 06:50 Labs: Abnormal Lab Results - Last 24 Hours (Table) 07/12/23 07/12/23 07/13/23 Range/Units 18:08 20:15 06:50 RBC 3.32 L (4.30-5.90) m/uL Hgb 10.4 L (13.0-17.5) gm/dL Hct 31.4 L (39.0-53.0) % Plt Count 108 L (150-450) k/uL Sodium (137-145) mmol/L Chloride (98-107) mmol/L Carbon Dioxide (22-30) mmol/L BUN (9-20) mg/dL Creatinine (0.66-1.25) mg/dL Glucose (74-99) mg/dL POC Glucose (mg/dL) 224 H 150 H (70-110) mg/dL Total Protein (6.3-8.2) g/dL Albumin (3.5-5.0) g/dL 07/13/23 07/13/23 Range/Units 06:50 12:43 RBC (4.30-5.90) m/uL Hgb (13.0-17.5) gm/dL Hct (39.0-53.0) % Plt Count (150-450) k/uL Sodium 133 L (137-145) mmol/L Chloride 96 L (98-107) mmol/L Carbon Dioxide 33 H (22-30) mmol/L BUN 33 H (9-20) mg/dL Creatinine 4.03 H (0.66-1.25) mg/dL Glucose 108 H (74-99) mg/dL POC Glucose (mg/dL) 171 H (70-110) mg/dL Total Protein 5.2 L (6.3-8.2) g/dL Albumin 2.7 L (3.5-5.0) g/dL Assessment and Plan Assessment: #1 ESRD MWF schedule #2 generalized weakness with recurrent falls #3 chronic diastolic CHF #4 anemia with chronic kidney disease #5 metabolic bone disease Plan: #1 hemodialysis Treatment on Saturday as per outpatient schedule
[2023-07-13 17:19] LABS: Glucose,Whole Blood 154 mg/dL (70-110)
[2023-07-13 20:51] LABS: Glucose,Whole Blood 77 mg/dL (70-110)
[2023-07-13] MEDS: ACETAMINOPHEN TAB 500 MG TAB PO SCH (21:15)
[2023-07-13] MEDS: DIVALPROEX 500 MG TABLET.DR PO SCH (21:15)
[2023-07-13] MEDS: diphenhydrAMINE 25 MG CAP PO SCH (21:15)
[2023-07-13] MEDS: ATORVASTATIN 10 MG TAB PO SCH (21:15)
[2023-07-13] MEDS: FENOFIBRATE 54 MG TAB PO SCH (21:16)
[2023-07-13] MEDS: DIVALPROEX 250 MG TABLET.DR PO SCH (21:16)
[2023-07-14 02:13] LABS: Glucose,Whole Blood 111 mg/dL (70-110)
[2023-07-14] MEDS ORDERED: LEVOTHYROXINE 75 MCG TAB PO SCH (06:30)
[2023-07-14] MEDS: LEVOTHYROXINE 100 MCG TAB PO SCH (06:32)
[2023-07-14 07:35] LABS: Glucose,Whole Blood 118 mg/dL (70-110)
--- NOTE | 2023-07-14 08:17 | P.PN ---
Subjective Progress Note Date: 07/14/23 HISTORY OF PRESENT ILLNESS This is a 77 year old male patient with past medical history of hypertension, hyperlipidemia, hypothyroidism, diabetes mellitus type 2, end-stage renal diseas e on hemodialysis Saturday, Parkinson's disease, bipolar disorder, patient has been having issues with weakness in both legs and has been falling alot over the past three days, he went to his daughter in [place] and he fell using his walker Saturday and Saturday and Saturday night after he went back home he had partial hemodialysis on saturday and he was supposed to see this since he is not doing better after 2 epidurals and he is getting relief from pain management, patient has visited the ER recently on 07/02/2023 for right flank pain and had CT scan of the Abdomen and pelvis that did nor show evidence of any hydronephrosis , surprisingly his lipase was slight ly elevated and now with more elevation patient underwent US of the Abdomen that showed hydropic gallbladder and prominent CBD at 6 mm no evidence of cholecystitis and there was 2.5 cm rounded area at the lower pole of the right kidney likely Lobulation can not rule out mass , it was recommended to continue with monitoring with MRI as outpatient 07/10: patient is lying down in bed continues to have severe pain with ambulation and not able to participate in PT due to tremendous pain, he is getting dialysis, hi son at the bedside and his daughter were through [facility], we will check X-rays of the lumbar and thoracic spine to rule out any fractures and we will consult spine surgery as the patient is not able to move at all, we will start Nepro bid for protin intake, we will continue with current treatment plan , likely will need rehabilitation 07/11: Patient is lying down in bed , continues to have isues with severe back pain reviewed X-rays there is no fractures but significant DDD with spinal stenosis along with DISH, no plan for surgical intervention at this point, we will continue with current pain management and we will continue to work with PT and OT and possible ECF. 07/12: Patient is feeling better today, he sat up at the edge of the bed and we will see if patient can be transferred to [facility] on [facility] [address] in AM, if not will be on Saturday after HD, we will continue with current treatment paln, spine surgery not planing for any surgical intervention at this point and we will continue with conservative management along with PT 07/13: Patient is lying down in bed in no acute distress, feels better , pain is controlled, we will continue with current treatment plan and we will plan for ECF on Saturday REVIEW OF SYSTEMS Constitutional: No fever, no chills, no night sweats. No weight change. Reported weakness, fatigue. No daytime sleepiness. HEENT: No headache. No nasal drainage or congestion. No epistaxis. No sore throat. Lungs: No shortness of breath, cough, no sputum production. No wheezing. Cardiovascular: No chest pain, no lower extremity edema. No palpitations. No paroxysmal nocturnal dyspnea. No orthopnea. No lightheadedness or dizziness. No syncopal episodes. Abdominal: positive for abdominal pain. No nausea, vomiting. No diarrhea. positive for constipation. No bloody or tarry stools. positive for loss of appetite. Genitourinary: No dysuria, increased frequency, urgency. No urinary retention. Musculoskeletal: No myalgias. Reported muscle weakness, reported gait dysfunction with chronic shuffling gait secondary to Parkinson's, reported frequent falls. positive for back pain and neck pain. Integumentary: No wounds, no lesions. No rash or pruritus. positive for bruising. No change in hair or nails. Neurologic: No aphasia. No facial droop. No change in mentation. No head injury. No headache. No paralysis. No paresthesia. Psychiatric: Reported depression. No anxiety. Endocrine: No abnormal blood sugars. No weight change. No excessive sweating or thirst. No cold intolerance. PHYSICAL EXAMINATION Gen: This is a 77-year-old male. He is resting in bed appears to be fairly comfortable. HEENT: Head is atraumatic, normocephalic. Pupils equal, round. Sclerae is ani cteric. NECK: Supple. No JVD. No lymphadenopathy. No thyromegaly. LUNGS: Clear to auscultation. No wheezes or rhonchi. No intercostal retractions. HEART: Regular rate and rhythm. 2/6 systolic murmur at the left sternal border, no S3, no S4. ABDOMEN: Soft, mild tenderness in the midepigastric to right upper quadrant area Bowel sounds are present. No masses.. EXTREMITIES: No pedal edema. No calf tenderness. Dorsalis pedis posterior bilaterally NEUROLOGICAL: Patient is awake, alert and oriented x3. Cranial nerves 2 through 12 are grossly intact. Deep tendon reflexes 2+ symmetrical, muscle power 2/5 in the left lower extremity 4/5 in the right lower extremity and 4/5 in bilateral upper extremities. ASSESSMENT AND PLAN 1. Recurrent falls with acute on chronic back pain. we will continue with Flexeril 5 mg orally bid along with Tramadol 50 mg po q 6 h as needed, Morphine ordered for severe pain, PT and OT consult along with social work instructor consult for discharge planning, X-rays were reviewed and spine surgery consult is in place 2. End-stage renal disease on Saturday. Patient missed dialysis treatment on 01/29. Consult with Dr. Chavez appreciated. Patient is scheduled for hemodialysis today and again tomorrow.. 3. Hdropic Gallbladder with elevated Lipase . CT scan few days ago did not show evidence of pancreatitis, besides there was no Gallsrones, we will continue to monitor 4. Parkinson's disease. Consult with neurology. Patient is currently on Sinemet 49750 milligrams 3 times daily. 5. Hypertension. Patient not currently on medications. No documented episodes of hypotension 6. Hyperlipidemia. Continue atorvastatin 10 mg at bedtime, fenofibrate 54 mg at bedtime. 7. Hypothyroidism. Continue levothyroxine 200 g daily and 50 g Saturday through Saturday and 75 g on Saturday. TSH on 01/07 was 8.9, free T4 normal at 1.02. 8. Diabetes mellitus type 2. With recent A1c 7.0. Continue NovoLog scale before meals and at bedtime. 9. Bipolar disorder. Patient is on Depakote 1250 mg po qhs and we will continue with Lamictal 150 mg po daily and Lexparo 20 mg po daily 10. 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 Continue ferrous sulfate 325 mg daily. 11. DVT prophylaxis. Heparin subcu 5000 units every 12 hours. 12. GI prophylaxis. Pepcid 20 mg po daily 13. Medical debility. will require sub-Acute rehabilitation hopefully tomorrow or Saturday Objective - Vital Signs Vital signs: Vital Signs Temp 98.9 F 07/14/23 02:00 Pulse 81 07/14/23 02:00 Resp 16 07/14/23 02:00 BP 134/71 07/14/23 02:00 Pulse Ox 95 07/14/23 02:00 FiO2 Intake & Output 07/13/23 07/14/23 07/14/23 18:59 06:59 18:59 Output Total 200 Balance -200 Output: Urine 200 Other: Voiding Method Toilet Toilet # Voids 2 1 - Labs CBC & Chem 7: 07/13/23 06:50 07/13/23 06:50 Labs: Abnormal Lab Results - Last 24 Hours (Table) 07/13/23 07/13/23 07/13/23 Range/Units 06:50 12:43 17:18 Sodium 133 L (137-145) mmol/L Chloride 96 L (98-107) mmol/L Carbon Dioxide 33 H (22-30) mmol/L BUN 33 H (9-20) mg/dL Creatinine 4.03 H (0.66-1.25) mg/dL Glucose 108 H (74-99) mg/dL POC Glucose (mg/dL) 171 H 154 H (70-110) mg/dL Total Protein 5.2 L (6.3-8.2) g/dL Albumin 2.7 L (3.5-5.0) g/dL 07/14/23 07/14/23 Range/Units 02:12 07:32 Sodium (137-145) mmol/L Chloride (98-107) mmol/L Carbon Dioxide (22-30) mmol/L BUN (9-20) mg/dL Creatinine (0.66-1.25) mg/dL Glucose (74-99) mg/dL POC Glucose (mg/dL) 111 H 118 H (70-110) mg/dL Total Protein (6.3-8.2) g/dL Albumin (3.5-5.0) g/dL
[2023-07-14] MEDS: INSULIN ASPART (NovoLOG) 100 UNIT/ML VIAL SQ SCH ×4 (09:36→21:04)
[2023-07-14] MEDS: lamoTRIgine 100 MG TAB PO SCH (09:40)
[2023-07-14] MEDS: FOLIC ACID 1 MG TAB PO SCH (09:40)
[2023-07-14] MEDS: CYANOCOBALAMIN 500 MCG TAB PO SCH (09:40)
[2023-07-14] MEDS: SEVELAMER 800 MG TAB PO SCH ×3 (09:40→17:38)
[2023-07-14] MEDS: FERROUS SULFATE 325 MG TAB PO SCH (09:41)
[2023-07-14] MEDS: HEPARIN SODIUM,PORCINE 5,000 UNIT/ML 1 ML VIAL SQ SCH ×2 (09:41→21:07)
[2023-07-14] MEDS: CARBIDOPA-LEVODOPA 25-250 MG 1 EACH TAB PO SCH ×3 (09:41→21:07)
[2023-07-14] MEDS: ESCITALOPRAM 20 MG TAB PO SCH (09:41)
--- NOTE | 2023-07-14 10:47 | P.PN ---
Subjective Progress Note Date: 07/14/23 HISTORY OF PRESENT ILLNESS This is a 77 year old male patient with past medical history of hypertension, hyperlipidemia, hypothyroidism, diabetes mellitus type 2, end-stage renal diseas e on hemodialysis Saturday, Parkinson's disease, bipolar disorder, patient has been having issues with weakness in both legs and has been falling alot over the past three days, he went to his daughter in [place] and he fell using his walker Saturday and Saturday and Saturday night after he went back home he had partial hemodialysis on saturday and he was supposed to see this since he is not doing better after 2 epidurals and he is getting relief from pain management, patient has visited the ER recently on 07/02/2023 for right flank pain and had CT scan of the Abdomen and pelvis that did nor show evidence of any hydronephrosis , surprisingly his lipase was slight ly elevated and now with more elevation patient underwent US of the Abdomen that showed hydropic gallbladder and prominent CBD at 6 mm no evidence of cholecystitis and there was 2.5 cm rounded area at the lower pole of the right kidney likely Lobulation can not rule out mass , it was recommended to continue with monitoring with MRI as outpatient 07/10: patient is lying down in bed continues to have severe pain with ambulation and not able to participate in PT due to tremendous pain, he is getting dialysis, hi son at the bedside and his daughter were through [facility], we will check X-rays of the lumbar and thoracic spine to rule out any fractures and we will consult spine surgery as the patient is not able to move at all, we will start Nepro bid for protin intake, we will continue with current treatment plan , likely will need rehabilitation 07/11: Patient is lying down in bed , continues to have isues with severe back pain reviewed X-rays there is no fractures but significant DDD with spinal stenosis along with DISH, no plan for surgical intervention at this point, we will continue with current pain management and we will continue to work with PT and OT and possible ECF. 07/12: Patient is feeling better today, he sat up at the edge of the bed and we will see if patient can be transferred to [facility] on [address] in AM, if not will be on Saturday after HD, we will continue with current treatment paln, spine surgery not planing for any surgical intervention at this point and we will continue with conservative management along with PT 07/13: Patient is lying down in bed in no acute distress, feels better , pain is controlled, we will continue with current treatment plan and we will plan for ECF on Saturday 07/14: Patient is laying down in bed in no apparent distress, he has slept well last night, he denies any chest pain, shortness breath, he has no abdominal pain, he is tolerating treatment well, he is using Nepro twice every day, he appears to be a bit stronger, social economist is on the case, patient will likely be transferred to [facility] on the [address] on Saturday after dialysis REVIEW OF SYSTEMS Constitutional: No fever, no chills, no night sweats. No weight change. Reported weakness, fatigue. No daytime sleepiness. HEENT: No headache. No nasal drainage or congestion. No epistaxis. No sore throat. Lungs: No shortness of breath, cough, no sputum production. No wheezing. Cardiovascular: No chest pain, no lower extremity edema. No palpitations. No paroxysmal nocturnal dyspnea. No orthopnea. No lightheadedness or dizziness. No syncopal episodes. Abdominal: positive for abdominal pain. No nausea, vomiting. No diarrhea. positive for constipation. No bloody or tarry stools. positive for loss of appetite. Genitourinary: No dysuria, increased frequency, urgency. No urinary retention. Musculoskeletal: No myalgias. Reported muscle weakness, reported gait dysfunction with chronic shuffling gait secondary to Parkinson's, reported frequent falls. positive for back pain and neck pain. Integumentary: No wounds, no lesions. No rash or pruritus. positive for bruising. No change in hair or nails. Neurologic: No aphasia. No facial droop. No change in mentation. No head injury. No headache. No paralysis. No paresthesia. Psychiatric: Reported depression. No anxiety. Endocrine: No abnormal blood sugars. No weight change. No excessive sweating or thirst. No cold intolerance. PHYSICAL EXAMINATION Gen: This is a 77-year-old male. He is resting in bed appears to be fairly comfortable. HEENT: Head is atraumatic, normocephalic. Pupils equal, round. Sclerae is anicteric. NECK: Supple. No JVD. No lymphadenopathy. No thyromegaly. LUNGS: Clear to auscultation. No wheezes or rhonchi. No intercostal retractions. HEART: Regular rate and rhythm. 2/6 systolic murmur at the left sternal border, no S3, no S4. ABDOMEN: Soft, mild tenderness in the midepigastric to right upper quadrant area Bowel sounds are present. No masses.. EXTREMITIES: No pedal edema. No calf tenderness. Dorsalis pedis posterior bilaterally NEUROLOGICAL: Patient is awake, alert and oriented x3. Cranial nerves 2 through 12 are grossly intact. Deep tendon reflexes 2+ symmetrical, muscle power 2/5 in the left lower extremity 4/5 in the right lower extremity and 4/5 in bilateral upper extremities. ASSESSMENT AND PLAN 1. Recurrent falls with acute on chronic back pain. we will continue with Flexeril 5 mg orally bid along with Tramadol 50 mg po q 6 h as needed, Morphine ordered for severe pain, PT and OT consult along with social economist consult for discharge planning, X-rays were reviewed and spine surgery consult is in place 2. End-stage renal disease on Saturday. Patient missed dialysis treatment on 01/29. Consult with Dr. Chavez appreciated. Patient is sc heduled for hemodialysis today and again tomorrow.. 3. Hdropic Gallbladder with elevated Lipase . CT scan few days ago did not show evidence of pancreatitis, besides there was no Gallsrones, we will continue to monitor 4. Parkinson's disease. Consult with neurology. Patient is currently on Sin emet 65580 milligrams 3 times daily. 5. Hypertension. Patient not currently on medications. No documented episodes of hypotension 6. Hyperlipidemia. Continue atorvastatin 10 mg at bedtime, fenofibrate 54 mg at bedtime. 7. Hypothyroidism. Continue levothyroxine 200 g daily and 50 g Saturday through Saturday and 75 g on Saturday. TSH on 01/07 was 8.9, free T4 normal at 1.02. 8. Diabetes mellitus type 2. With recent A1c 7.0. Continue NovoLog scale before meals and at bedtime. 9. Bipolar disorder. Patient is on Depakote 1250 mg po qhs and we will continue with Lamictal 150 mg po daily and Lexparo 20 mg po daily 10. 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 Continue ferrous sulfate 325 mg daily. 11. DVT prophylaxis. Heparin subcu 5000 units every 12 hours. 12. GI prophylaxis. Pepcid 20 mg po daily 13. Medical debility. will require sub-Acute rehabilitation hopefully tomorrow or Saturday Objective - Vital Signs Vital signs: Vital Signs Temp 98.9 F 07/14/23 02:00 Pulse 81 07/14/23 02:00 Resp 16 07/14/23 02:00 BP 134/71 07/14/23 02:00 Pulse Ox 95 07/14/23 02:00 FiO2 Intake & Output 07/13/23 07/14/23 07/14/23 18:59 06:59 18:59 Output Total 200 Balance -200 Output: Urine 200 Other: Voiding Method Toilet Toilet # Voids 2 1 - Labs CBC & Chem 7: 07/13/23 06:50 07/13/23 06:50 Labs: Abnormal Lab Results - Last 24 Hours (Table) 07/13/23 07/13/23 07/13/23 Range/Units 06:50 12:43 17:18 Sodium 133 L (137-145) mmol/L Chloride 96 L (98-107) mmol/L Carbon Dioxide 33 H (22-30) mmol/L BUN 33 H (9-20) mg/dL Creatinine 4.03 H (0.66-1.25) mg/dL Glucose 108 H (74-99) mg/dL POC Glucose (mg/dL) 171 H 154 H (70-110) mg/dL Total Protein 5.2 L (6.3-8.2) g/dL Albumin 2.7 L (3.5-5.0) g/dL 07/14/23 07/14/23 Range/Units 02:12 07:32 Sodium (137-145) mmol/L Chloride (98-107) mmol/L Carbon Dioxide (22-30) mmol/L BUN (9-20) mg/dL Creatinine (0.66-1.25) mg/dL Glucose (74-99) mg/dL POC Glucose (mg/dL) 111 H 118 H (70-110) mg/dL Total Protein (6.3-8.2) g/dL Albumin (3.5-5.0) g/dL
[2023-07-14 12:29] LABS: Glucose,Whole Blood 89 mg/dL (70-110)
--- NOTE | 2023-07-14 14:02 | P.PN ---
Subjective Progress Note Date: 07/14/23 Follow-up for ESRD Objective - Vital Signs Vital signs: Vital Signs Temp 97.9 F 07/14/23 07:35 Pulse 61 07/14/23 07:35 Resp 17 07/14/23 08:00 BP 101/51 07/14/23 07:35 Pulse Ox 97 07/14/23 07:35 FiO2 Intake & Output 07/13/23 07/14/23 07/14/23 18:59 06:59 18:59 Output Total 200 Balance -200 Output: Urine 200 Other: Voiding Method Toilet Toilet Toilet # Voids 2 1 - Exam No acute distress S1-S2 heard Decreased breath sounds No edema - Labs CBC & Chem 7: 07/13/23 06:50 07/13/23 06:50 Labs: Abnormal Lab Results - Last 24 Hours (Table) 07/13/23 07/14/23 07/14/23 Range/Units 17:18 02:12 07:32 POC Glucose (mg/dL) 154 H 111 H 118 H (70-110) mg/dL Assessment and Plan Assessment: #1 ESRD MWF schedule #2 generalized weakness with recurrent falls #3 chronic diastolic CHF #4 anemia with chronic kidney disease #5 metabolic bone disease Plan: #1 Hemodialysis tomorrow. #2 ESRD medications
[2023-07-14 17:17] LABS: Glucose,Whole Blood 130 mg/dL (70-110)
[2023-07-14 20:00] LABS: Glucose,Whole Blood 107 mg/dL (70-110)
[2023-07-14] MEDS: ACETAMINOPHEN TAB 500 MG TAB PO SCH (21:06)
[2023-07-14] MEDS: diphenhydrAMINE 25 MG CAP PO SCH (21:06)
[2023-07-14] MEDS: DIVALPROEX 250 MG TABLET.DR PO SCH (21:07)
[2023-07-14] MEDS: ATORVASTATIN 10 MG TAB PO SCH (21:07)
[2023-07-14] MEDS: FENOFIBRATE 54 MG TAB PO SCH (21:07)
[2023-07-14] MEDS: DIVALPROEX 500 MG TABLET.DR PO SCH (21:20)
[2023-07-15] MEDS: LEVOTHYROXINE 50 MCG TAB PO SCH (05:51)
[2023-07-15] MEDS: LEVOTHYROXINE 100 MCG TAB PO SCH (05:51)
[2023-07-15 07:30] LABS: Glucose,Whole Blood 66 mg/dL (70-110)
[2023-07-15] MEDS: INSULIN ASPART (NovoLOG) 100 UNIT/ML VIAL SQ SCH ×2 (07:31→12:08)
[2023-07-15 07:53] LABS: Glucose,Whole Blood 76 mg/dL (70-110)
[2023-07-15] MEDS: lamoTRIgine 100 MG TAB PO SCH (08:48)
[2023-07-15] MEDS: SEVELAMER 800 MG TAB PO SCH ×2 (08:49→14:06)
[2023-07-15] MEDS: CARBIDOPA-LEVODOPA 25-250 MG 1 EACH TAB PO SCH ×2 (08:49→15:54)
[2023-07-15] MEDS: HEPARIN SODIUM,PORCINE 5,000 UNIT/ML 1 ML VIAL SQ SCH (08:49)
[2023-07-15] MEDS: FERROUS SULFATE 325 MG TAB PO SCH (08:49)
[2023-07-15] MEDS: CYANOCOBALAMIN 500 MCG TAB PO SCH (08:49)
[2023-07-15] MEDS: FOLIC ACID 1 MG TAB PO SCH (08:49)
[2023-07-15] MEDS: ESCITALOPRAM 20 MG TAB PO SCH (08:50)
[2023-07-15] MEDS: traMADol 50 MG TAB PO PRN ×2 (09:19→15:53)
[2023-07-15] MEDS: MORPHINE SULFATE 4 MG/ML SYRINGE IV PRN (10:53)
[2023-07-15 12:05] LABS: Glucose,Whole Blood 118 mg/dL (70-110)
[2023-07-15 14:17] VITALS: BP 129/66; PULSE 75; RESP 18; TEMP 98.1
--- NOTE | 2023-07-15 19:30 | P.PN ---
Subjective Patient is seen for f/u for ESRD. Doing well Seen on HD. Tolerating treatment well. C/o back pain. Better by laying on side. Objective - Vital Signs Vital signs: Vital Signs Temp 98.1 F 07/15/23 14:15 Pulse 75 07/15/23 14:15 Resp 18 07/15/23 14:15 BP 129/66 07/15/23 14:15 Pulse Ox 97 07/15/23 11:47 FiO2 Intake & Output 07/15/23 07/15/23 07/16/23 06:59 18:59 06:59 Intake Total 320 400 Output Total 2550 Balance 320 -2150 Intake: Oral 320 Hemodialysis 400 Output: Urine 150 Hemodialysis 2400 Other: Voiding Method Diaper Urinal Incontinent Diaper Incontinent # Voids 2 - Exam Awake, comfortable. No distress. No edema noted. Abdomen is soft. [employer] CASHIER exam grossly intact. - Labs CBC & Chem 7: 07/13/23 06:50 07/13/23 06:50 Labs: Abnormal Lab Results - Last 24 Hours (Table) 07/15/23 07/15/23 Range/Units 07:21 12:03 POC Glucose (mg/dL) 66 L 118 H (70-110) mg/dL Assessment and Plan Assessment: #1 ESRD MWF schedule #2 generalized weakness with recurrent falls #3 chronic diastolic CHF #4 anemia with chronic kidney disease #5 metabolic bone disease Plan: Continue HD on MWF schedule.
[2023-07-15 23:10] LABS: Hepatitis B Surface Antigen Nonreactive
[2023-07-15 23:55] LABS: Hepatitis B Surface AB- Quant 3.5 mIU/mL
== END 2023-07-15 16:55 | DRG 551 ==
LOC: EC 12:39 → 5NMEDONC 17:46
PROVIDERS: ADMIT Internal Medicine; ATTEND Internal Medicine
DX: M47.816 Spondylosis without myelopathy or radiculopathy, lumbar region (principal); N18.6 End stage renal disease; I50.32 Chronic diastolic (congestive) heart failure; I13.2 Hypertensive heart and chronic kidney disease with heart failure and with stage 5 chronic kidney disease, or end stage renal disease; M85.80 Other specified disorders of bone density and structure, unspecified site; M89.8X9 Other specified disorders of bone, unspecified site; N28.1 Cyst of kidney, acquired; R29.6 Repeated falls; H91.90 Unspecified hearing loss, unspecified ear; G89.29 Other chronic pain; G20 Parkinson's disease; F41.9 Anxiety disorder, unspecified; F31.9 Bipolar disorder, unspecified; E78.5 Hyperlipidemia, unspecified; E03.9 Hypothyroidism, unspecified; E11.22 Type 2 diabetes mellitus with diabetic chronic kidney disease; D63.1 Anemia in chronic kidney disease; Z96.653 Presence of artificial knee joint, bilateral; Z79.890 Hormone replacement therapy; Z79.899 Other long term (current) drug therapy; Z80.1 Family history of malignant neoplasm of trachea, bronchus and lung; Z82.49 Family history of ischemic heart disease and other diseases of the circulatory system; Z83.3 Family history of diabetes mellitus; Z98.42 Cataract extraction status, left eye; Z99.2 Dependence on renal dialysis
CPT/HCPCS: 36415; 71046; 72070; 72100; 74018; 76705; 80053; 81001; 82150; 82728; 83540; 83550; 83690; 84100; 84132; 85025; 86706; 87340; 90935; 96361; 96372; 96374; 96375; 99285

== ENCOUNTER 2023-07-24 01:55 | Emergency (ER) | payer MEDICARE, BC ==
--- NOTE | 2023-07-24 03:04 | ED ---
General Adult HPI - General Chief complaint: Urogenital Stated complaint: Back Pain Time Seen by Provider: 07/24/23 01:58 Source: EMS Mode of arrival: EMS - History of Present Illness Initial comments: Dictation was produced using [employer] dictation software. please excuse any grammatical, word or spelling errors. Chief Complaint: 78-year-old male presents to the ER for abdominal pain History of Present Illness: 78-year-old male presents from the group home for abdominal pain. Patient is a poor historian states that he's been having constant lower abdominal pain. He thinks he has a kidney stone. He has no history of kidney stones. Denies any fevers. No nausea or vomiting. States pain is to his left lower quadrant suprapubic area. Nonradiating. The ROS documented in this emergency department record has been reviewed and confirmed by me. Those systems with pertinent positive or negative responses have been documented in the HPI. All other systems are other negative and/or noncontributory. - Related Data Home Medications Medication Instructions Recorded Confirmed Levothyroxine Sodium [Synthroid] 200 mcg PO DAILY 01/29/16 07/09/23 Lovastatin [Mevacor] 40 mg PO HS 01/29/16 07/09/23 Escitalopram [Lexapro] 20 mg PO DAILY 11/06/19 07/09/23 Fenofibrate 54 mg PO HS 02/19/22 07/09/23 Insulin Lispro [humaLOG Kwikpen] See Protocol SQ AC-TID 08/30/22 07/09/23 Ferrous Sulfate [Iron (65 MG 325 mg PO DAILY 01/30/23 07/09/23 Elemental)] Lidocaine-Prilocaine Cream [Emla 1 applic TOPICAL DIRECTED PRN 01/30/23 07/09/23 Cream 2.5%/2.5%] lamoTRIgine [LaMICtal] 150 mg PO DAILY 01/30/23 07/09/23 Acetaminophen/Diphenhydramine 1 tab PO HS 07/09/23 07/09/23 [Tylenol PM 500-25mg] Carbidopa-Levodopa 25-250 mg 1 tab PO TID 07/09/23 07/09/23 [Sinemet 25-250 mg] Divalproex Sodium [Depakote] 1,000 mg PO HS 07/09/23 07/09/23 Divalproex [Depakote] 250 mg PO HS 07/09/23 07/09/23 Ibuprofen [Motrin Ib] 600 mg PO DAILY PRN 07/09/23 07/09/23 Lidocaine 5% Patch [Lidoderm 5% 1 patch TRANSDERM DAILY PRN 07/09/23 07/09/23 Patch] Previous Rx's Medication Instructions Recorded Acetaminophen Tab [Tylenol] 650 mg PO Q6HR PRN tab 07/15/23 Cyanocobalamin [Vitamin B-12] 1,000 mcg PO DAILY tab 07/15/23 Cyclobenzaprine [Flexeril] 5 mg PO BID PRN #0 tab 07/15/23 Folic Acid 1 mg PO DAILY tab 07/15/23 Levothyroxine Sodium [Synthroid] 50 mcg PO MoTuWeThFrSa@0630 tab 07/15/23 Levothyroxine Sodium [Synthroid] 75 mcg PO Nava@0630 tab 07/15/23 Sevelamer [Renvela] 800 mg PO TID-W/MEALS #90 tab 07/15/23 traMADol HCl [Ultram] 50 mg PO Q6H PRN #12 tab 07/15/23 Docusate [Colace] 100 mg PO DAILY PRN #12 capsule 07/24/23 Allergies Allergy/AdvReac Type Severity Reaction Status Date / Time No Known Allergies Allergy Verified 07/24/23 02:10 Review of Systems ROS Statement: Those systems with pertinent positive or pertinent negative responses have been documented in the HPI. ROS Other: All systems not noted in ROS Statement are negative. Past Medical History Past Medical History: Diabetes Mellitus, Hearing Disorder / Deafness, Hyperlipidemia, Osteoarthritis (OA), Renal Disease, Sleep Apnea/CPAP/BIPAP, Thyroid Disorder Additional Past Medical History / Comment(s): Heart murmer, Parkinson's, CPAP use, hard of hearing. History of Any Multi-Drug Resistant Organisms: None Reported Past Surgical History: Orthopedic Surgery, Tonsillectomy Additional Past Surgical History / Comment(s): Bilateral knee surgery, left foot bone spur, right cataract removed, left shoulder arthroscopy, peritoneal dialysis catheter placed. Past Anesthesia/Blood Transfusion Reactions: No Reported Reaction Past Psychological History: Anxiety, Bipolar, Depression Smoking Status: Former smoker Past Alcohol Use History: None Reported Past Drug Use History: None Reported - Past Family History Father Family Medical History: Cancer Mother Additional Family Medical History / Comment(s): Mother at age 74 from heart failure. Brother(s) Additional Family Medical History / Comment(s): Patient has one brother and one sister both have diabetes. Patient's 3 children with no major medical problems. General Exam - General Exam Comments Initial Comments: PHYSICAL EXAM: General Impression: Alert and oriented x3, not in acute distress HEENT: Normocephalic atraumatic, extra-ocular movements intact, pupils equal and reactive to light bilaterally, mucous membranes moist. Cardiovascular: Heart regular rate and rhythm Chest: Able to complete full sentences, no retractions, no tachypnea Abdomen: abdomen soft, suprapubic and left lower quadrant palpatory tenderness non-distended, no organomegaly Musculoskeletal: Pulses present and equal in all extremities, no peripheral edema Motor: no focal deficits noted Neurological: CN II-XII grossly intact, no focal motor or sensory deficits noted Skin: Intact with no visualized rashes Psych: Normal affect and mood Course Vital Signs 07/24/23 07/24/23 02:04 06:00 Temperature 98.5 F 98.1 F Pulse Rate 76 85 Respiratory 19 16 Rate Blood Pressure 159/71 135/74 O2 Sat by Pulse 96 97 Oximetry Medical Decision Making - Medical Decision Making Was pt. sent in by a medical professional or institution (DIANE Richard, SPLINE ROLLING MACHINE JOB SETTER, urgent care, hospital, or group home...) When possible be specific @ -No Did you speak to anyone other than the patient for history (EMS, parent, family, police, friend...)? What history was obtained from this source @ -No Did you review nursing and triage notes (agree or disagree)? Why? @ -I reviewed and agree with nursing and triage notes Were old charts reviewed (outside hosp., previous admission, EMS record, old EKG, old radiological studies, urgent care reports/EKG's, group home records)? Report findings @ -No old charts were reviewed Differential Diagnosis (chest pain, altered mental status, abdominal pain women, abdominal pain men, vaginal bleeding, musculoskeletal, weakness, fever, dyspnea, syncope, headache, dizziness, GI bleed, back pain, seizure, CVA, palpatations, mental health)? @ -Differential Abdominal Pain Men: Appendicitis, cholecystitis, diverticulosis, ischemic bowel, pancreatitis, hepatitis, UTI, gastroenteritis, AAA, incarcerated hernia, bowel obstruction, constipation, inflammatory bowel, hepatitis, peptic ulcer disease, splenic infarction, perforated viscus, testicular torsion, this is not meant to be an all-inclusive list EKG interpreted by me (3pts min.). @ -None done X-rays interpreted by me (1pt min.). @ -None done CT interpreted by me (1pt min.). @ -CT of the abdomen and pelvis shows no intra-abdominal infections or intra- abdominal acute processes. U/S interpreted by me (1pt. min.). @ -None done What testing was considered but not performed or refused? (CT, X-rays, U/S, labs)? Why? @ -None What meds were considered but not given or refused? Why? @ -None Did you discuss the management of the patient with other professionals (professionals i.e. , PA, SPLINE ROLLING MACHINE JOB SETTER, lab, RT, psych nurse, social worker aide, veterinary technologist, teacher, technology officer, comp field case manager)? Give summary @ -Discussed with Dr. Coombs regarding patient's dialysis status. It is advised that patient needs to go to dialysis today when he was exposed to IV contrast Was smoking cessation discussed for >3mins.? @ -No Was critical care preformed (if so, how long)? @ -No Were there social determinants of health that impacted care today? How? (Homelessness, low income, unemployed, alcoholism, drug addiction, transportatio n, low edu. Level, literacy, decrease access to med. care, skilled nursing, rehab)? @ -No Was there de-escalation of care discussed even if they declined (Discuss DNR or withdrawal of care, Hospice)? DNR status @ -No What co-morbidities impacted this encounter? (DM, HTN, Smoking, COPD, CAD, Cancer, CVA, ARF, Chemo, Hep., AIDS, mental health diagnosis, sleep apnea, morbid obesity)? @ -None Was patient admitted / discharged? Hospital course, mention meds given and route, prescriptions, significant lab abnormalities, going to OR and other pertinent info. @ -8-year-old male presents emergency department for acute abdominal pain. Vital signs stable. Patient is well-appearing at the bedside. Laboratory evaluation shows no leukocytosis. Hemoglobin 9.3. Metabolic panel within acceptable limits for dialysis patient. He does have 27 white blood cells. Patient had a large bowel movement at the bedside with significant improvement of his symptoms. Likely patient's symptoms are secondary to stool burden. Case is discussed with supervisor cold rolling recommended that patient would've dialysis today. Urine cultures pending Undiagnosed new problem with uncertain prognosis? @ -No Drug Therapy requiring intensive monitoring for toxicity (Heparin, Nitro, Insulin, Cardizem)? @ -No Were any procedures done? @ -No Diagnosis/symptom? Acute, or Chronic, or Acute on Chronic? Uncomplicated (without systemic symptoms) or Complicated (systemic symptoms)? @ -Abdominal pain Side effects of treatment? @ -No Exacerbation, Progression, or Severe Exacerbation? @ -No Poses a threat to life or bodily function? How? (Chest pain, [place], HI, pneumonia, PE, COPD, DKA, ARF, appy, cholecystitis, CVA, Diverticulitis, Homicidal, Suicidal, threat to staff... and all critical care pts) @ -No - Lab Data Result diagrams: 07/24/23 03:10 07/24/23 03:10 Lab Results 07/24/23 07/24/23 07/24/23 Range/Units 03:10 03:10 06:00 WBC 9.7 (3.8-10.6) k/uL RBC 3.02 L (4.30-5.90) m/uL Hgb 9.3 L (13.0-17.5) gm/dL Hct 27.7 L (39.0-53.0) % MCV 91.8 (80.0-100.0) fL MCH 30.9 (25.0-35.0) pg MCHC 33.6 (31.0-37.0) g/dL RDW 15.4 (11.5-15.5) % Plt Count 264 D (150-450) k/uL MPV 7.1 Neutrophils % 74 % Lymphocytes % 18 % Monocytes % 6 % Eosinophils % 0 % Basophils % 0 % Neutrophils # 7.2 (1.3-7.7) k/uL Lymphocytes # 1.8 (1.0-4.8) k/uL Monocytes # 0.6 (0-1.0) k/uL Eosinophils # 0.0 (0-0.7) k/uL Basophils # 0.0 (0-0.2) k/uL Sodium 131 L (137-145) mmol/L Potassium 3.8 (3.5-5.1) mmol/L Chloride 95 L (98-107) mmol/L Carbon Dioxide 31 H (22-30) mmol/L Anion Gap 5 mmol/L BUN 33 H (9-20) mg/dL Creatinine 3.40 H (0.66-1.25) mg/dL Est GFR (CKD-EPI)AfAm 19 (>60 ml/min/1.73 sqM) Est GFR (CKD-EPI)NonAf 16 (>60 ml/min/1.73 sqM) Glucose 191 H (74-99) mg/dL Calcium 8.5 (8.4-10.2) mg/dL Total Bilirubin 0.5 (0.2-1.3) mg/dL AST 28 (17-59) U/L ALT 8 (4-49) U/L Alkaline Phosphatase 60 (38-126) U/L Total Protein 5.1 L (6.3-8.2) g/dL Albumin 2.5 L (3.5-5.0) g/dL Lipase 38 (23-300) U/L Urine Color Yellow Urine Appearance Cloudy (Clear) Urine pH 6.0 (5.0-8.0) Ur Specific [place] 1.013 (1.001-1.035) Urine Protein 1+ H (Negative) Urine Glucose (UA) Negative (Negative) Urine Ketones Trace H (Negative) Urine Blood Trace H (Negative) Urine Nitrite Negative (Negative) Urine Bilirubin Negative (Negative) Urine Urobilinogen 4.0 (<2.0) mg/dL Ur Leukocyte Esterase Small H (Negative) Urine RBC 1 (0-5) /hpf Urine WBC 27 H (0-5) /hpf Ur Squamous Epith Cells <1 (0-4) /hpf Urine Bacteria Few H (None) /hpf Disposition Clinical Impression: Abdominal pain Disposition: HOME SELF-CARE Instructions (If sedation given, give patient instructions): Abdominal Pain (ED) Additional Instructions: Go to dialysis today at your usual times. Prescriptions: Docusate [Colace] 100 mg PO DAILY PRN #12 capsule PRN Reason: Constipation Is patient prescribed a controlled substance at d/c from ED?: No Referrals: Kimberly Gerardo MD [Primary Care Provider] - 1-2 days Time of Disposition: 06:47
[2023-07-24 03:30] LABS: ALT 8 U/L (4-49); AST 28 U/L (17-59); African American GFR (CKD) 19 (>60 ml/min/1.73 sqM); Albumin 2.5 g/dL (3.5-5.0); Alkaline Phosphatase 60 U/L (38-126); Anion Gap 5 mmol/L; Blood Urea Nitrogen 33 mg/dL (9-20); Calcium 8.5 mg/dL (8.4-10.2); Carbon Dioxide 31 mmol/L (22-30); Chloride 95 mmol/L (98-107); Glucose 191 mg/dL (74-99); Lipase 38 U/L (23-300); Non-African American GFR(CKD) 16 (>60 ml/min/1.73 sqM); Potassium 3.8 mmol/L (3.5-5.1); Sodium 131 mmol/L (137-145); Total Bilirubin 0.5 mg/dL (0.2-1.3); Total Protein 5.1 g/dL (6.3-8.2)
[2023-07-24] MEDS ORDERED: MORPHINE SULFATE 4 MG/ML SYRINGE IV STA (03:48)
[2023-07-24 03:52] LABS: Basophils % (A) 0 %; Eosinophils % (A) 0 %; HCT 27.7 % (39.0-53.0); HGB 9.3 gm/dL (13.0-17.5); Lymphocytes # (A) 1.8 k/uL (1.0-4.8); Lymphocytes % (A) 18 %; MCH 30.9 pg (25.0-35.0); MCHC 33.6 g/dL (31.0-37.0); MCV 91.8 fL (80.0-100.0); Mean Platelet Volume 7.1; Monocytes # (A) 0.6 k/uL (0-1.0); Monocytes % (A) 6 %; Neutrophils # (A) 7.2 k/uL (1.3-7.7); Neutrophils % (A) 74 %; RBC 3.02 m/uL (4.30-5.90); RDW 15.4 % (11.5-15.5); WBC 9.7 k/uL (3.8-10.6)
[2023-07-24 04:03] LABS: Platelet Count 264 k/uL (150-450)
[2023-07-24 06:23] LABS: Appearance,Urine Cloudy (Clear); Bacteria,Urine Few /hpf; Bilirubin,Urine Negative (Negative); Blood,Urine Trace (Negative); Color,Urine Yellow; Glucose,Urine (UA) Negative (Negative); Ketones,Urine Trace (Negative); Leukocyte Esterase,Urine Small (Negative); Nitrite,Urine Negative (Negative); Protein,Urine 1+ (Negative); RBC,Urine 1 /hpf (0-5); Specific Gravity,Urine 1.013 (1.001-1.035); Squamous Epithelial Cell,Urine <1 /hpf (0-4); WBC,Urine 27 /hpf (0-5)
[2023-07-24 06:32] VITALS: TEMP 98.1
--- NOTE | 2023-07-24 06:33 | CT ---
EXAM: CT Abdomen and Pelvis Without Intravenous Contrast CLINICAL HISTORY: ITS.REASON CT Reason: lower abdominal pain, suspect diverticulitis TECHNIQUE: Axial computed tomography images of the abdomen and pelvis without intravenous contrast. CTDI is 12.4 mGy and DLP is 767.4 mGy-cm. This CT exam was performed using one or more of the following dose reduction techniques: automated exposure control, adjustment of the mA and/or kV according to patient size, and/or use of iterative reconstruction technique. COMPARISON: No relevant prior studies available. FINDINGS: Limitations: Limited evaluation in the absence of contrast. Lung bases: Small left pleural effusion with adjacent airspace disease which may relate to compressive atelectasis. Left pleural effusion may be due to volume overload from heart very given cardiomegaly. Heart: Cardiomegaly with pericardial effusion measuring 8 mm. Findings may be due to heart failure. ABDOMEN: Liver: Unremarkable. Gallbladder and bile ducts: Unremarkable. No calcified stones. No ductal dilation. Pancreas: Unremarkable. No ductal dilation. Spleen: Unremarkable. No splenomegaly. Adrenals: Unremarkable. No mass. Kidneys and ureters: No evidence of radiopaque renal calculi or signs of collecting system dilatation. Simple bilateral renal cysts. No follow-up of these simple cysts is necessary. Stomach and bowel: No evidence of bowel obstruction. Rectal vault distention measuring up to 8.3 cm with active defecation. Adjacent stranding noted. Stercoral colitis is not excluded. Consider disimpaction. Colonic diverticulosis without evidence of diverticulitis. PELVIS: Appendix: Normal appendix. Bladder: Diffuse bladder wall thickening. Findings can be seen with cystitis. Consider correlation with laboratory values. No stones. Reproductive: Poorly visualized prostate. ABDOMEN and PELVIS: Intraperitoneal space: Unremarkable. No free air. No significant fluid collection. Bones/joints: Degenerative changes in the spine. 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 No acute fracture. No dislocation. Soft tissues: Unremarkable. Vasculature: Atherosclerotic disease. No abdominal aortic aneurysm. Lymph nodes: Unremarkable. No enlarged lymph nodes. IMPRESSION: 1. Limited evaluation in the absence of contrast. 2. No evidence of radiopaque renal calculi or signs of collecting system dilatation. 3. Diffuse bladder wall thickening. Findings can be seen with cystitis. Consider correlation with laboratory values. 4. Rectal vault distention measuring up to 8.3 cm with active defecation. Adjacent stranding noted. Stercoral colitis is not excluded. Consider disimpaction. 5. Small left pleural effusion with adjacent airspace disease which may relate to compressive atelectasis. Left pleural effusion may be due to volume overload from heart very given cardiomegaly. 6. Cardiomegaly with pericardial effusion measuring 8 mm. Findings may be due to heart failure. 7. Other incidental findings as described in the body of report.
[2023-07-24 07:44] VITALS: BP 111/58; PULSE 70; RESP 18
== END 2023-07-24 08:50 | disposition home or self-care (01) ==
LOC: EC 01:55
DX: R10.30 Lower abdominal pain, unspecified (principal); E11.9 Type 2 diabetes mellitus without complications; E78.5 Hyperlipidemia, unspecified; E07.9 Disorder of thyroid, unspecified; G47.30 Sleep apnea, unspecified; F41.9 Anxiety disorder, unspecified; F31.9 Bipolar disorder, unspecified; Z87.891 Personal history of nicotine dependence; Z79.4 Long term (current) use of insulin; Z79.899 Other long term (current) drug therapy; Z79.890 Hormone replacement therapy
CPT/HCPCS: 99284; 96374; 36415; 93005; 80053; 83690; 85025; 81001; 74176; J2270

== ENCOUNTER 2023-11-06 08:43 | Observation (INO) | payer MEDICARE, BC ==
--- NOTE | 2023-11-06 09:14 | ED ---
General Adult HPI - General Chief complaint: Fall Stated complaint: Fall Time Seen by Provider: 11/06/23 08:51 Source: EMS, RN notes reviewed Mode of arrival: EMS Limitations: no limitations - History of Present Illness Initial comments: Patient is a 78-year-old male presented to the emergency room today by EMS, the chief complaint of a fall that occurred middle night. does admit that he was trying to make his way to the bathroom using his walker when it got caught causing him to fall down. He states that he did injure his back. States was unable to get up. Patient's daughter at bedside stating that she received a phone call from his dialysis center and was how she needed to check up on him. States that approximate down on the ground EMS was called and he was unable to get up. Does admit to increased lower back pain. He denies any injuries specifically to extremity's. States he does not member striking his head or losing conscious. Patient is not on any blood thinners. Patient is on dialysis on Saturday, Saturday, Saturday. Daughter also stating that he misses dialysis on Saturday. Patient denies any other complaints or symptoms currently. Patient denies any recent fever, chills, shortness of breath, chest pain, back pain, abdominal pain, nausea or vomiting, headaches or visual changes, or any other complaints. - Related Data Home Medications Medication Instructions Recorded Confirmed Levothyroxine Sodium [Synthroid] 200 mcg PO DAILY 01/29/16 07/09/23 Lovastatin [Mevacor] 40 mg PO HS 01/29/16 07/09/23 Escitalopram [Lexapro] 20 mg PO DAILY 11/06/19 07/09/23 Fenofibrate 54 mg PO HS 02/19/22 07/09/23 Insulin Lispro [humaLOG Kwikpen] See Protocol SQ AC-TID 08/30/22 07/09/23 Ferrous Sulfate [Iron (65 MG 325 mg PO DAILY 01/30/23 07/09/23 Elemental)] Lidocaine-Prilocaine Cream [Emla 1 applic TOPICAL DIRECTED PRN 01/30/23 07/09/23 Cream 2.5%/2.5%] lamoTRIgine [LaMICtal] 150 mg PO DAILY 01/30/23 07/09/23 Acetaminophen/Diphenhydramine 1 tab PO HS 07/09/23 07/09/23 [Tylenol PM 500-25mg] Carbidopa-Levodopa 25-250 mg 1 tab PO TID 07/09/23 07/09/23 [Sinemet 25-250 mg] Divalproex Sodium [Depakote] 1,000 mg PO HS 07/09/23 07/09/23 Divalproex [Depakote] 250 mg PO HS 07/09/23 07/09/23 Ibuprofen [Motrin Ib] 600 mg PO DAILY PRN 07/09/23 07/09/23 Lidocaine 5% Patch [Lidoderm 5% 1 patch TRANSDERM DAILY PRN 07/09/23 07/09/23 Patch] Previous Rx's Medication Instructions Recorded Acetaminophen Tab [Tylenol] 650 mg PO Q6HR PRN tab 07/15/23 Cyanocobalamin [Vitamin B-12] 1,000 mcg PO DAILY tab 07/15/23 Cyclobenzaprine [Flexeril] 5 mg PO BID PRN #0 tab 07/15/23 Folic Acid 1 mg PO DAILY tab 07/15/23 Levothyroxine Sodium [Synthroid] 50 mcg PO MoTuWeThFrSa@0630 tab 07/15/23 Levothyroxine Sodium [Synthroid] 75 mcg PO Nava@0630 tab 07/15/23 Sevelamer [Renvela] 800 mg PO TID-W/MEALS #90 tab 07/15/23 traMADol HCl [Ultram] 50 mg PO Q6H PRN #12 tab 07/15/23 Docusate [Colace] 100 mg PO DAILY PRN #12 capsule 07/24/23 Allergies Allergy/AdvReac Type Severity Reaction Status Date / Time No Known Allergies Allergy Verified 11/06/23 08:49 Review of Systems ROS Statement: Those systems with pertinent positive or pertinent negative responses have been documented in the HPI. ROS Other: All systems not noted in ROS Statement are negative. Past Medical History Past Medical History: Diabetes Mellitus, Hearing Disorder / Deafness, Hyperlipidemia, Osteoarthritis (OA), Renal Disease, Sleep Apnea/CPAP/BIPAP, Thyroid Disorder Additional Past Medical History / Comment(s): Heart murmer, Parkinson's, CPAP use, hard of hearing. History of Any Multi-Drug Resistant Organisms: None Reported Past Surgical History: Orthopedic Surgery, Tonsillectomy Additional Past Surgical History / Comment(s): Bilateral knee surgery, left foot bone spur, right cataract removed, left shoulder arthroscopy, peritoneal dialysis catheter placed. Past Anesthesia/Blood Transfusion Reactions: No Reported Reaction Past Psychological History: Anxiety, Bipolar, Depression Smoking Status: Former smoker Past Alcohol Use History: None Reported Past Drug Use History: None Reported - Past Family History Father Family Medical History: Cancer Mother Additional Family Medical History / Comment(s): Mother at age 74 from heart failure. Brother(s) Additional Family Medical History / Comment(s): Patient has one brother and one sister both have diabetes. Patient's 3 children with no major medical problems. General Exam - General Exam Comments Initial Comments: General: The patient is awake and alert, in no distress, and does not appear a cutely ill. Eye: Pupils are equal, round and reactive to light, extra-ocular movements are intact. No nystagmus. There is normal conjunctiva bilaterally. No signs of icterus. Ears, nose, mouth and throat: There are moist mucous membranes and no oral lesions. Neck: The neck is supple, there is no tenderness or JVD. Cardiovascular: There is a regular rate and rhythm. Respiratory: Lungs are clear to auscultation, respirations are non-labored, breath sounds are equal. Gastrointestinal: Abdomen soft nontender. No rebound, guarding. Musculoskeletal: No appearance of cervical, thoracic or lumbar spine. Does have tenderness mid thoracic down through the lumbar. Pain reproduced with movements of bending and turning. Neurological: A&O x 3. CN II-XII intact, There are no obvious motor or sensory deficits. Coordination appears grossly intact. Speech is normal. Skin: Skin is warm and dry and no rashes or lesions are noted. Psychiatric: Cooperative, appropriate mood & affect, normal judgment. Limitations: no limitations Course Vital Signs 11/06/23 11/06/23 11/06/23 08:46 08:54 10:49 Temperature 97.0 F L 98 F Pulse Rate 80 77 67 Respiratory 18 16 16 Rate Blood Pressure 153/79 153/79 122/67 O2 Sat by Pulse 100 100 97 Oximetry Medical Decision Making - Medical Decision Making ]History was obtained from patient/Nurse/Family Initial assessment and chief complaint: Fall, back pain Chronic conditions affecting care: CKD, hypertension, hyperlipidemia, Social determinants affecting care: None Differential diagnosis included, but not limited to: Fracture, contusion, disc herniation, strain Any imaging that may have been performed was also reviewed. I did an independent interpretation of the patient's imaging. My interpretation of chest x-ray, shoulder x-ray, pelvis were reviewed shows no evidence of fracture, dislocation. With acute abnormalities. Patient 78-year-old male was presented to the emergency room today by EMS, the chief complaint fall. He was down on the ground for 6 hours after a trip and fall to make his way to the bathroom. Patient does admit to pain in her lower back. CT of the head, neck, thoracic and lumbar spine were reviewed were negative for any acute abnormality. Also had x-ray of the left shoulder and a chest x-ray which were unremarkable along with pelvis. The patient's blood work as been reviewed. Does have a history of chronic kidney disease and his creatinine is elevated as he misses dialysis. The patient was given IV pain medication of morphine here in emergency room. Still having significant pain worse with movements. He is resting comfortable if he lays still per patient. Patient will be admitted for intractable back pain as he does live at home by himself. Unable to care for himself. Case discussed with his family physician Dr. Gerardo was accepted admission. Consult for nephrology has been placed on his. For dialysis. Patient family wear and plan states understanding and agreement. - Lab Data Result diagrams: 11/06/23 09:13 11/06/23 09:13 Lab Results 11/06/23 11/06/23 Range/Units 09:13 09:13 WBC 6.1 (3.8-10.6) k/uL RBC 3.95 L (4.30-5.90) m/uL Hgb 12.6 L (13.0-17.5) gm/dL Hct 37.5 L (39.0-53.0) % MCV 95.0 (80.0-100.0) fL MCH 32.0 (25.0-35.0) pg MCHC 33.7 (31.0-37.0) g/dL RDW 14.3 (11.5-15.5) % Plt Count 133 L (150-450) k/uL MPV 7.5 Neutrophils % 76 % Lymphocytes % 17 % Monocytes % 5 % Eosinophils % 1 % Basophils % 0 % Neutrophils # 4.6 (1.3-7.7) k/uL Lymphocytes # 1.0 (1.0-4.8) k/uL Monocytes # 0.3 (0-1.0) k/uL Eosinophils # 0.0 (0-0.7) k/uL Basophils # 0.0 (0-0.2) k/uL Sodium 142 (137-145) mmol/L Potassium 4.5 (3.5-5.1) mmol/L Chloride 102 (98-107) mmol/L Carbon Dioxide 24 (22-30) mmol/L Anion Gap 16 mmol/L BUN 103 H* (9-20) mg/dL Creatinine 6.38 H (0.66-1.25) mg/dL Est GFR (CKD-EPI)AfAm 9 (>60 ml/min/1.73 sqM) Est GFR (CKD-EPI)NonAf 8 (>60 ml/min/1.73 sqM) Glucose 124 H (74-99) mg/dL Calcium 8.8 (8.4-10.2) mg/dL Creatine Kinase 170 (55-170) U/L Disposition Clinical Impression: Intractable back pain, Fall, CKD (chronic kidney disease) Disposition: ADMITTED IP TO THIS [facility] Condition: Stable Referrals: None,Stated [REFERRING] - 1-2 days Time of Disposition: 12:40
[2023-11-06] MEDS ORDERED: MORPHINE SULFATE 4 MG/ML SYRINGE IV STA (09:18)
[2023-11-06 09:42] LABS: Basophils % (A) 0 %; Eosinophils % (A) 1 %; HCT 37.5 % (39.0-53.0); HGB 12.6 gm/dL (13.0-17.5); Lymphocytes % (A) 17 %; MCHC 33.7 g/dL (31.0-37.0); Mean Platelet Volume 7.5; Monocytes # (A) 0.3 k/uL (0-1.0); Monocytes % (A) 5 %; Neutrophils # (A) 4.6 k/uL (1.3-7.7); Neutrophils % (A) 76 %; Platelet Count 133 k/uL (150-450); RBC 3.95 m/uL (4.30-5.90); RDW 14.3 % (11.5-15.5); WBC 6.1 k/uL (3.8-10.6)
[2023-11-06 10:02] LABS: African American GFR (CKD) 9 (>60 ml/min/1.73 sqM); Anion Gap 16 mmol/L; Calcium 8.8 mg/dL (8.4-10.2); Carbon Dioxide 24 mmol/L (22-30); Chloride 102 mmol/L (98-107); Creatine Kinase 170 U/L (55-170); Glucose 124 mg/dL (74-99); Non-African American GFR(CKD) 8 (>60 ml/min/1.73 sqM); Potassium 4.5 mmol/L (3.5-5.1); Sodium 142 mmol/L (137-145)
[2023-11-06 10:26] LABS: Blood Urea Nitrogen 103 mg/dL (9-20)
--- NOTE | 2023-11-06 10:40 | XR ---
EXAMINATION TYPE: XR shoulder complete LT DATE OF EXAM: 11/06/2023 10:33 AM CLINICAL INDICATION:Male, 78 years old with history of fall; [facility] COMPARISON: 01/29/2016 TECHNIQUE: XR shoulder complete LT; shoulder was examined in AP, internally rotated and scapular Y p rojections. FINDINGS: No evidence of acute osseous pathology, joint dislocation, or soft tissue swelling. The remaining po rtions of the visualized chest are unremarkable. Degeneration changes of the left acromion and distal clavicle. Mild osteophyte formation also present of the glenoid. IMPRESSION: 1. No acute osseous pathology. 2. Moderate left shoulder osteoarthrosis which has progressed from prior.
--- NOTE | 2023-11-06 10:42 | XR ---
EXAMINATION TYPE: XR pelvis AP view DATE OF EXAM: 11/06/2023 10:22 AM CLINICAL INDICATION:Male, 78 years old with history of fall; [facility] COMPARISON: None TECHNIQUE: The pelvis was examined in a single projection. FINDINGS: There is no evidence of fracture or dislocation. There is no soft tissue abnormality. No a bnormal calcifications are present. The spine appears intact. The hips appear intact. Osteophyte form ation of the superior acetabulum bilaterally with mild joint space narrowing. Multilevel degeneration changes spine with osteophyte formation. Surgical clips project over the left abdomen. IMPRESSION: 1. No acute osseous pathology. 2. Moderate bilateral hip osteoporosis.
--- NOTE | 2023-11-06 10:43 | XR ---
EXAMINATION TYPE: XR chest 1V portable DATE OF EXAM: 11/06/2023 10:22 AM CLINICAL INDICATION:Male, 78 years old with history of fall; COMPARISON: Chest radiographs from 07/09/2023. TECHNIQUE: XR chest 1V portable Frontal view of the chest. FINDINGS: Lungs/Pleura: There is no evidence of pleural effusion, focal consolidation, or pneumothorax. Pulmonary vascularity: Unremarkable. Heart/mediastinum: Cardiomediastinal silhouette is unremarkable. Musculoskeletal: No acute osseous pathology. IMPRESSION: No acute cardiopulmonary disease/process.
--- NOTE | 2023-11-06 11:01 | CT ---
EXAMINATION TYPE: CT brain cspine wo con DATE OF EXAM: 11/06/2023 COMPARISON: Prior trauma CT December 29, 2020 HISTORY: Fall from be this am CT DLP: 1650 mGycm. Automated Exposure Control for Dose Reduction was Utilized. TECHNIQUE: CT scan of the head and cervical spine are performed without contrast. FINDINGS: There is no acute intracranial hemorrhage or midline shift identified. Moderate ventricul ar and sulcal prominence redemonstrated. Shrestha-white matter differentiation is preserved. The calvariu m is intact. The globes are intact and the visualized sinuses are clear. Cervical spine is visualized in its entirety from C1 through upper thoracic levels and demonstrates s atisfactory alignment without evidence of acute fracture or dislocation. Prevertebral soft tissue ap pears within normal limits. The C1-C2 articulation is within normal limits on the coronal images. V ertebral body heights are maintained. Moderate disc space narrowing at C5-C6 level is redemonstrated. Anterior bridging osteophytes demonstrated extending into the upper thoracic spine similar to prior. Review of axial images redemonstrates multilevel uncovertebral facet degenerative changes bilaterall y. Thyroid gland is hypoplastic or surgically absent. Lung apices are clear without pneumothorax. IMPRESSION: 1. There is no acute fracture or dislocation evident in the cervical spine. 2. No acute intracranial hemorrhage or midline shift is seen. No significant change from prior trauma CT.
--- NOTE | 2023-11-06 11:04 | CT ---
EXAMINATION TYPE: CT thor lumbar spine wo con DATE OF EXAM: 11/06/2023 COMPARISON: Prior CT lumbar spine June 25, 2023 HISTORY: Fall from bed this am CT DLP: 1499.8 mGycm Automated exposure control for dose reduction was used. FINDINGS: Thoracolumbar spine shows some straightening on sagittal images without acute displaced fracture. The re are bridging osteophytes throughout the thoracic spine seen. Vertebral body heights are preserved. [id number] multilevel disc space narrowing in the thoracic spine with areas of disc calcificat ion are noted. There are 5 lumbar type vertebra redemonstrated vertebral body heights and disc space heights are maintained and the lumbar spine. Moderate multilevel anterior and lateral spurring is see n. Prominent Schmorl nodes involving inferior L2 and both superior and inferior L4 endplates are rede monstrated. Spinal canal is preserved. Visualized ribs are intact. Axial images show some cortical th inning with thin mac persists in both kidneys consistent with product of chronic medical renal dise ase. Scattered colonic diverticula are partially imaged. IMPRESSION: No acute fracture or dislocation in the thoracolumbar spine.
[2023-11-06] MEDS ORDERED: ONDANSETRON 4 MG/2 ML VIAL IVP PRN (12:35)
[2023-11-06] MEDS ORDERED: NALOXONE 0.4 MG/ML 1 ML VIAL IV PRN (12:35)
[2023-11-06] MEDS: MORPHINE SULFATE 4 MG/ML SYRINGE IV PRN ×2 (14:10→22:46)
[2023-11-06] MEDS ORDERED: IBUPROFEN 800 MG TAB PO PRN (17:59)
[2023-11-06] MEDS ORDERED: CYCLOBENZAPRINE 5 MG TAB PO PRN (17:59)
[2023-11-06] MEDS ORDERED: traMADol 50 MG TAB PO PRN (17:59)
[2023-11-06] MEDS ORDERED: MIDODRINE 5 MG TAB PO PRN (17:59)
[2023-11-06] MEDS ORDERED: polyethylene glycoL 3350 17 GM POWD.PACK PO SCH (18:00)
[2023-11-06] MEDS ORDERED: DIVALPROEX 500 MG TABLET.DR PO SCH (21:00)
[2023-11-06] MEDS ORDERED: MIRTAZAPINE 15 MG TAB PO SCH (21:00)
[2023-11-06] MEDS ORDERED: DIVALPROEX 250 MG TABLET.DR PO SCH (21:00)
[2023-11-06] MEDS: CARBIDOPA-LEVODOPA 25-250 MG 1 EACH TAB PO SCH (22:45)
[2023-11-06] MEDS: HEPARIN SODIUM,PORCINE 5,000 UNIT/ML 1 ML VIAL SQ SCH (22:46)
[2023-11-06] MEDS ORDERED: DEXTROSE 50% SYRINGE 50 ML IVP PRN ×2 (23:17)
[2023-11-06 23:21] LABS: Glucose,Whole Blood 154 mg/dL (70-110)
[2023-11-07 04:17] LABS: Hepatitis B Surface Antigen Nonreactive
[2023-11-07 05:30] LABS: Hepatitis B Surface AB- Quant 3.5 mIU/mL
[2023-11-07] MEDS: INSULIN ASPART (NovoLOG) 100 UNIT/ML VIAL SQ SCH ×2 (06:19→12:45)
[2023-11-07 06:28] LABS: Glucose,Whole Blood 120 mg/dL (70-110)
[2023-11-07] MEDS ORDERED: LEVOTHYROXINE 100 MCG TAB PO SCH (06:30)
--- NOTE | 2023-11-07 08:43 | P.HPIM ---
History of Present Illness H&P Date: 11/06/23 Chief Complaint: Intractable back pain HISTORY OF PRESENT ILLNESS This is a 77 year old male patient with past medical history of hypertension, hyperlipidemia, hypothyroidism, diabetes mellitus type 2, end-stage renal disease on hemodialysis Saturday, Parkinson's disease, bipolar disorder, patient was doing fine after he was admitted to [facility] for physical therapy rehabilitation last time he was in the hospital back in [facility] 2022, he has been using a walker on a regular basis, patient did have a lot of adjustment in his home to accommodate his disabilities, apparently the patient woke up at 2:00 in the morning to try to go to the bathroom he forgot to put his Lifeline on him, he tripped with we'll of the walker and landed on the floor he tried so hard to get up but he couldn't he stayed in the floor for 6 hours, until finally managed to get some help, patient was brought into the ER at [facility] and he was evaluated by multiple testing including computed tomography scan of the brain and cervical spine and thoracic spine, no evidence of any acute fractures were found however the patient was admitted to the hospital because he has missed dialysis and he started on hemodialysis tonight, patient also was started on morphine for pain control, he was restarted back and his tramadol as well as muscle relaxer, he'll be seen in consultation by physical therapy and he'll likely be discharged home in the next 24 hours. REVIEW OF SYSTEMS Constitutional: No fever, no chills, no night sweats. No weight change. Reported weakness, fatigue. No daytime sleepiness. HEENT: No headache. No nasal drainage or congestion. No epistaxis. No sore throat. Lungs: No shortness of breath, cough, no sputum production. No wheezing. Cardiovascular: No chest pain, no lower extremity edema. No palpitations. No paroxysmal nocturnal dyspnea. No orthopnea. No lightheadedness or dizziness. No syncopal episodes. Abdominal: positive for abdominal pain. No nausea, vomiting. No diarrhea. positive for constipation. No bloody or tarry stools. positive for loss of appetite. Genitourinary: No dysuria, increased frequency, urgency. No urinary retention. Musculoskeletal: No myalgias. Reported muscle weakness, reported gait dysfunction with chronic shuffling gait secondary to Parkinson's, reported frequent falls. positive for back pain and neck pain. Integumentary: No wounds, no lesions. No rash or pruritus. positive for bruising. No change in hair or nails. Neurologic: No aphasia. No facial droop. No change in mentation. No head injury. No headache. No paralysis. No paresthesia. Psychiatric: Reported depression. No anxiety. Endocrine: No abnormal blood sugars. No weight change. No excessive sweating or thirst. No cold intolerance. MEDICAL HISTORY Hypertension Hyperlipidemia Hypothyroidism Diabetes mellitus type 2 End-stage renal disease on hemodialysis Saturday Parkinson's disease Bipolar disorder. SURGICAL HISTORY Left knee arthroscopically Left foot bone spur Left cataract surgery Left shoulder arthroscopically Right arm AV fistula Right groin Mg catheter. SOCIAL HISTORY Patient was a smoker one pack per day for 20 years ago quit 40 years ago. No alcohol use, no illicit drug use or marijuana use. He lives alone in senior housing. He normally uses a rolling walker for ambulation FAMILY HISTORY Father at age 73 from lung cancer with history of diabetes. Mother at age 74 from CHF. Brother is alive with diabetes. Sister is alive with diabetes. Patient has 2 daughters with no major medical problems. PHYSICAL EXAMINATION Gen: This is a 77-year-old male. He is resting in bed appears to be fairly comfortable. HEENT: Head is atraumatic, normocephalic. Pupils equal, round. Sclerae is anicteric. NECK: Supple. No JVD. No lymphadenopathy. No thyromegaly. LUNGS: Clear to auscultation. No wheezes or rhonchi. No intercostal retractions. HEART: Regular rate and rhythm. 2/6 systolic murmur at the left sternal border, no S3, no S4. ABDOMEN: Soft, non tender Bowel sounds are present. No masses.. EXTREMITIES: No pedal edema. No calf tenderness. Dorsalis pedis posterior bilaterally NEUROLOGICAL: Patient is awake, alert and oriented x3. Cranial nerves 2 through 12 are grossly intact. Deep tendon reflexes 2+ symmetrical, muscle power 4/5 in bilateral upper and lower extremities ASSESSMENT AND PLAN 1. Recurrent falls with acute on chronic back pain. we will continue with Flexeril 5 mg orally bid along with Tramadol 50 mg po q 6 h as needed, Morphine ordered for severe pain, PT and OT consult along with director social welfare consult for discharge planning. 2. End-stage renal disease on Saturday. Patient missed dialysis treatment. Consult with Dr. Scott veliz. Patient is scheduled for hemodialysis today 3. Parkinson's disease. Consult with neurology. Patient is currently on Sinemet 87287 milligrams 3 times daily. 4. Hypertension. Patient not currently on medications. No documented episodes of hypotension 5. Hyperlipidemia. Continue atorvastatin 10 mg at bedtime, fenofibrate 54 mg at bedtime. 6. Hypothyroidism. Continue levothyroxine 200 g daily . 7. Diabetes mellitus type 2. With recent A1c 7.0. Continue NovoLog scale before meals and at bedtime. 8. Bipolar disorder. Patient is on Depakote 1250 mg po qhs and we will continue with Lamictal 150 mg po daily and Lexparo 20 mg po daily 9. 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 Continue ferrous sulfate 325 mg daily. 10. DVT prophylaxis. Heparin subcu 5000 units every 12 hours. 11. GI prophylaxis. Pepcid 20 mg po daily 12. Observation 13. No code 14. Home in the next 24 hours. Past Medical History Past Medical History: Diabetes Mellitus, Hearing Disorder / Deafness, H yperlipidemia, Osteoarthritis (OA), Renal Disease, Sleep Apnea/CPAP/BIPAP, Thyroid Disorder Additional Past Medical History / Comment(s): Heart murmer, Parkinson's, CPAP use, hard of hearing. History of Any Multi-Drug Resistant Organisms: None Reported Past Surgical History: Orthopedic Surgery, Tonsillectomy Additional Past Surgical History / Comment(s): Bilateral knee surgery, left foot bone spur, right cataract removed, left shoulder arthroscopy, peritoneal dialysis catheter placed. Past Anesthesia/Blood Transfusion Reactions: No Reported Reaction Past Psychological History: Anxiety, Bipolar, Depression Smoking Status: Former smoker Past Alcohol Use History: None Reported Past Drug Use History: None Reported - Past Family History Father Family Medical History: Cancer Mother Additional Family Medical History / Comment(s): Mother at age 74 from heart failure. Brother(s) Additional Family Medical History / Comment(s): Patient has one brother and one sister both have diabetes. Patient's 3 children with no major medical problems. Medications and Allergies Home Medications Medication Instructions Recorded Confirmed Type Levothyroxine Sodium [Synthroid] 200 mcg PO DAILY 01/29/16 11/06/23 History Escitalopram [Lexapro] 20 mg PO DAILY 11/06/19 11/06/23 History Fenofibrate 54 mg PO W/SUPPER 02/19/22 11/06/23 History lamoTRIgine [LaMICtal] 150 mg PO W/SUPPER 01/30/23 11/06/23 History Carbidopa-Levodopa 25-250 mg 1 tab PO TID 07/09/23 11/06/23 History [Sinemet 25-250 mg] Divalproex Sodium [Depakote] 1,000 mg PO HS 07/09/23 11/06/23 History Divalproex [Depakote] 250 mg PO HS 07/09/23 11/06/23 History Ibuprofen [Motrin Ib] 800 mg PO DAILY PRN 07/09/23 11/06/23 History Cyanocobalamin [Vitamin B-12] 1,000 mcg PO DAILY tab 07/15/23 11/06/23 Rx Cyclobenzaprine [Flexeril] 5 mg PO BID PRN #0 tab 07/15/23 11/06/23 Rx traMADol HCl [Ultram] 50 mg PO Q6H PRN #12 tab 07/15/23 11/06/23 Rx Folic Acid 0.4 mg PO DAILY 11/06/23 11/06/23 History Lovastatin [Mevacor] 40 mg PO W/SUPPER 11/06/23 11/06/23 History Midodrine HCl [ProAmatine] 10 mg PO DIRECTED PRN 11/06/23 11/06/23 History Mirtazapine 7.5 mg PO HS 11/06/23 11/06/23 History Psyllium Husk [Metamucil] 0.4 gm PO SUTUTHSA 11/06/23 11/06/23 History Sevelamer [Renvela] 800 mg PO AC-TID 11/06/23 11/06/23 History polyethylene glycoL 3350 [Miralax] 17 gm PO MOWEFR 11/06/23 11/06/23 History Allergies Allergy/AdvReac Type Severity Reaction Status Date / Time No Known Allergies Allergy Verified 11/06/23 13:08 Physical Exam Vitals: Vital Signs Temp Pulse Resp BP Pulse Ox 11/06/23 14:03 97.9 F 67 16 147/76 97 11/06/23 10:49 98 F 67 16 122/67 97 11/06/23 08:54 77 16 153/79 100 11/06/23 08:46 97.0 F L 80 18 153/79 100 Intake and Output 11/06/23 11/06/23 11/06/23 06:59 14:59 22:59 Other: Weight 81.647 kg Results CBC & Chem 7: 11/06/23 09:13 11/06/23 09:13 Labs: Abnormal Lab Results - Last 24 Hours (Table) 11/06/23 11/06/23 Range/Units 09:13 09:13 RBC 3.95 L (4.30-5.90) m/uL Hgb 12.6 L (13.0-17.5) gm/dL Hct 37.5 L (39.0-53.0) % Plt Count 133 L (150-450) k/uL BUN 103 H* (9-20) mg/dL Creatinine 6.38 H (0.66-1.25) mg/dL Glucose 124 H (74-99) mg/dL
--- NOTE | 2023-11-07 08:44 | P.DS ---
Providers Date of admission: 11/06/23 12:32 Expected date of discharge: 11/07/23 Attending physician: Kimberly Gerardo Consults: 11/06/23 12:35 Consult Physician Routine Consulting Provider: Jinny Chavez Consult Reason/Comments: CKD, dialysis Do you want consulting provider notified?: Yes Primary care physician: Kimberly Gerardo Hospital Course: HISTORY OF PRESENT ILLNESS This is a 77 year old male patient with past medical history of hypertension, hyperlipidemia, hypothyroidism, diabetes mellitus type 2, end-stage renal disease on hemodialysis Saturday, Parkinson's disease, bipolar disorder, patient was doing fine after he was admitted to [facility] for physical therapy rehabilitation last time he was in the hospital back in July 2023, he has been using a walker on a regular basis, patient did have a lot of adjustment in his home to accommodate his disabilities, apparently the patient woke up at 2:00 in the morning to try to go to the bathroom he forgot to put his Lifeline on him, he tripped with we'll of the walker and landed on the floor he tried so hard to get up but he couldn't he stayed in the floor for 6 hours, until finally managed to get some help, patient was brought into the ER at [facility] and he was evaluated by multiple testing including computed tomography scan of the brain and cervical spine and thoracic spine, no evidence of any acute fractures were found however the patient was admitted to the hospital because he has missed dialysis and he started on hemodialysis tonight, patient also was started on morphine for pain control, he was restarted back and his tramadol as well as muscle relaxer, he'll be seen in consultation by physical therapy and he'll likely be discharged home in the next 24 hours. Discharge diagnoses: 1. Recurrent falls with acute on chronic back pain. 2. End-stage renal disease on Saturday. 3. Parkinson's disease. 4. Hypertension. 5. Hyperlipidemia. 6. Hypothyroidism. 7. Diabetes mellitus type 2. With recent A1c 7.0. 8. Bipolar disorder. 9. 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 Patient Condition at Discharge: Stable Plan - Discharge Summary Discharge Rx Participant: No New Discharge Prescriptions: No Action Levothyroxine Sodium [Synthroid] 200 mcg PO DAILY Escitalopram [Lexapro] 20 mg PO DAILY Fenofibrate 54 mg PO W/SUPPER Divalproex Sodium [Depakote] 1,000 mg PO HS Carbidopa-Levodopa 25-250 mg [Sinemet 25-250 mg] 1 tab PO TID Ibuprofen [Motrin Ib] 800 mg PO DAILY PRN PRN Reason: Pain Cyanocobalamin [Vitamin B-12] 1,000 mcg PO DAILY tab polyethylene glycoL 3350 [Miralax] 17 gm PO MOWEFR Folic Acid 0.4 mg PO DAILY Psyllium Husk [Metamucil] 0.4 gm PO SUTUTHSA lamoTRIgine [LaMICtal] 150 mg PO W/SUPPER Divalproex [Depakote] 250 mg PO HS Cyclobenzaprine [Flexeril] 5 mg PO BID PRN #0 tab PRN Reason: Pain traMADol HCl [Ultram] 50 mg PO Q6H PRN #12 tab PRN Reason: Moderate Pain (Scale 4 To 6) Sevelamer [Renvela] 800 mg PO AC-TID Lovastatin [Mevacor] 40 mg PO W/SUPPER Midodrine HCl [ProAmatine] 10 mg PO DIRECTED PRN PRN Reason: before dialysis Mirtazapine 7.5 mg PO HS Discharge Medication List Levothyroxine Sodium [Synthroid] 200 mcg PO DAILY 01/29/16 [History] Escitalopram [Lexapro] 20 mg PO DAILY 11/06/19 [History] Fenofibrate 54 mg PO W/SUPPER 02/19/22 [History] lamoTRIgine [LaMICtal] 150 mg PO W/SUPPER 01/30/23 [History] Carbidopa-Levodopa 25-250 mg [Sinemet 25-250 mg] 1 tab PO TID 07/09/23 [History] Divalproex Sodium [Depakote] 1,000 mg PO HS 07/09/23 [History] Divalproex [Depakote] 250 mg PO HS 07/09/23 [History] Ibuprofen [Motrin Ib] 800 mg PO DAILY PRN 07/09/23 [History] Cyanocobalamin [Vitamin B-12] 1,000 mcg PO DAILY tab 07/15/23 [Rx] Cyclobenzaprine [Flexeril] 5 mg PO BID PRN #0 tab 07/15/23 [Rx] traMADol HCl [Ultram] 50 mg PO Q6H PRN #12 tab 07/15/23 [Rx] Folic Acid 0.4 mg PO DAILY 11/06/23 [History] Lovastatin [Mevacor] 40 mg PO W/SUPPER 11/06/23 [History] Midodrine HCl [ProAmatine] 10 mg PO DIRECTED PRN 11/06/23 [History] Mirtazapine 7.5 mg PO HS 11/06/23 [History] Psyllium Husk [Metamucil] 0.4 gm PO SUTUTHSA 11/06/23 [History] Sevelamer [Renvela] 800 mg PO AC-TID 11/06/23 [History] polyethylene glycoL 3350 [Miralax] 17 gm PO MOWEFR 11/06/23 [History] Follow up Appointment(s)/Referral(s): None,Stated [REFERRING] - 1-2 days
[2023-11-07] MEDS ORDERED: CYANOCOBALAMIN 500 MCG TAB PO SCH (09:00)
[2023-11-07] MEDS ORDERED: ESCITALOPRAM 20 MG TAB PO SCH (09:00)
[2023-11-07] MEDS ORDERED: PSYLLIUM HUSK 100% 6 GM PACKET PO SCH (09:00)
[2023-11-07] MEDS ORDERED: FOLIC ACID 1 MG TAB PO SCH (09:00)
[2023-11-07 09:05] VITALS: BP 95/55; PULSE 69; RESP 16; TEMP 98.1
[2023-11-07 09:08] LABS: ALT <5 U/L (10-49); AST 26 U/L (14-35); Albumin 3.4 g/dL (3.8-4.9); Albumin/Globulin Ratio 1.62 Ratio (1.60-3.17); Alkaline Phosphatase 60 U/L (41-126); BUN/Creat Ratio 10.88 Ratio (12.00-20.00); Blood Urea Nitrogen 45.7 mg/dL (9.0-27.0); Calcium 8.9 mg/dL (8.7-10.3); Carbon Dioxide 25.1 mmol/L (21.6-31.8); Chloride 105 mmol/L (96-109); Globulin 2.1 g/dL (1.6-3.3); Glucose 148 mg/dL (70-110); Potassium 4.4 mmol/L (3.5-5.5); Sodium 143 mmol/L (135-145); Total Bilirubin 0.3 mg/dL (0.3-1.2); Total Protein 5.5 g/dL (6.2-8.2)
[2023-11-07 09:17] LABS: Basophils # (A) 0.02 X 10*3/uL (0.00-0.10); Basophils % (A) 0.5 %; Eosinophils # (A) 0.04 X 10*3/uL (0.04-0.35); HCT 36.9 % (39.6-50.0); HGB 11.8 g/dL (13.0-17.0); Lymphocytes # (A) 1.29 X 10*3/uL (0.90-5.00); Lymphocytes % (A) 30.6 %; MCH 31.1 pg (27.0-32.0); MCV 97.1 FL (80.0-97.0); Mean Platelet Volume 9.4 FL (9.5-12.2); Monocytes # (A) 0.29 X 10*3/uL (0.20-1.00); Monocytes % (A) 6.9 %; NRBC Per 100 WBC 0 X 10*3/uL (0.00-0.01); Neutrophils # (A) 2.55 X 10*3/uL (1.80-7.70); Neutrophils % (A) 60.5 %; Platelet Count 99 X 10*3/uL (140-440); RDW 13.7 % (11.5-14.5); WBC 4.21 X 10*3/uL (4.50-10.00)
[2023-11-07] MEDS: HEPARIN SODIUM,PORCINE 5,000 UNIT/ML 1 ML VIAL SQ SCH (09:40)
[2023-11-07] MEDS: SEVELAMER 800 MG TAB PO SCH ×2 (09:41→12:01)
[2023-11-07] MEDS: CARBIDOPA-LEVODOPA 25-250 MG 1 EACH TAB PO SCH (09:41)
--- NOTE | 2023-11-07 12:08 | P.NPCON ---
History of Present Illness - Reason for Consult end stage renal disease - History of Present Illness Reason for consultation: End-stage renal disease History of present illness: Patient is a 78-year-old male seen in consultation for end-stage renal disease. He is maintained on hemodialysis on Saturday schedule. Patient came to the hospital after he sustained a fall. Patient states he was going to the bathroom using his walker. He subsequently tripped and fell. He denies losing consciousness. Patient states he was weak and couldn't get up and was on the floor for about 6 hours. No vomiting or diarrhea. No fever or chills. No chest pain or shortness of breath. Patient states he lives at home alone. Imaging showed no fracture or dislocation. Resting in bed. Patient did go to hemodialysis yesterday and is scheduled to receive his next treatment tomorrow. Vital signs are stable. General: No acute distress. HEENT: Head exam is unremarkable. LUNGS: No audible rhonchi or wheezes. HEART: Rate and Rhythm are regular. ABDOMEN: Nontender. EXTREMITITES: No edema. Past Medical History Past Medical History: Diabetes Mellitus, Hearing Disorder / Deafness, Hyperlipidemia, Osteoarthritis (OA), Renal Disease, Sleep Apnea/CPAP/BIPAP, Thyroid Disorder Additional Past Medical History / Comment(s): Heart murmer, Parkinson's, CPAP use, hard of hearing. History of Any Multi-Drug Resistant Organisms: None Reported Past Surgical History: Orthopedic Surgery, Tonsillectomy Additional Past Surgical History / Comment(s): Bilateral knee surgery, left foot bone spur, right cataract removed, left shoulder arthroscopy, peritoneal dialysis catheter placed. Past Anesthesia/Blood Transfusion Reactions: No Reported Reaction Past Psychological History: Anxiety, Bipolar, Depression Smoking Status: Former smoker Past Alcohol Use History: None Reported Past Drug Use History: None Reported - Past Family History Father Family Medical History: Cancer Mother Additional Family Medical History / Comment(s): Mother at age 74 from heart failure. Brother(s) Additional Family Medical History / Comment(s): Patient has one brother and one sister both have diabetes. Patient's 3 children with no major medical problems. Medications and Allergies Home Medications Medication Instructions Recorded Confirmed Type Levothyroxine Sodium [Synthroid] 200 mcg PO DAILY 01/28/11/06/23 History Escitalopram [Lexapro] 20 mg PO DAILY 11/06/19 11/06/23 History Fenofibrate 54 mg PO W/SUPPER 02/19/22 11/06/23 History lamoTRIgine [LaMICtal] 150 mg PO W/SUPPER 01/30/23 11/06/23 History Carbidopa-Levodopa 25-250 mg 1 tab PO TID 07/09/23 11/06/23 History [Sinemet 25-250 mg] Divalproex Sodium [Depakote] 1,000 mg PO HS 07/09/23 11/06/23 History Divalproex [Depakote] 250 mg PO HS 07/09/23 11/06/23 History Ibuprofen [Motrin Ib] 800 mg PO DAILY PRN 07/09/23 11/06/23 History Cyanocobalamin [Vitamin B-12] 1,000 mcg PO DAILY tab 07/15/23 11/06/23 Rx Cyclobenzaprine [Flexeril] 5 mg PO BID PRN #0 tab 07/15/23 11/06/23 Rx traMADol HCl [Ultram] 50 mg PO Q6H PRN #12 tab 07/15/23 11/06/23 Rx Folic Acid 0.4 mg PO DAILY 11/06/23 11/06/23 History Lovastatin [Mevacor] 40 mg PO W/SUPPER 11/06/23 11/06/23 History Midodrine HCl [ProAmatine] 10 mg PO DIRECTED PRN 11/06/23 11/06/23 History Mirtazapine 7.5 mg PO HS 11/06/23 11/06/23 History Psyllium Husk [Metamucil] 0.4 gm PO SUTUTHSA 11/06/23 11/06/23 History Sevelamer [Renvela] 800 mg PO AC-TID 11/06/23 11/06/23 History polyethylene glycoL 3350 [Miralax] 17 gm PO MOWEFR 11/06/23 11/06/23 History Allergies Allergy/AdvReac Type Severity Reaction Status Date / Time No Known Allergies Allergy Verified 11/06/23 13:08 Physical Exam Vitals: Vital Signs Temp Pulse Pulse Pulse Resp BP BP 11/07/23 07:00 98.1 F 69 16 95/55 11/07/23 02:17 97.9 F 66 15 99/54 11/06/23 21:50 98.0 F 79 16 129/71 11/06/23 21:17 98.5 F 86 18 114/71 11/06/23 21:16 97.6 F 72 18 109/68 11/06/23 20:00 68 18 120/65 11/06/23 16:00 97.5 F L 114/62 11/06/23 14:03 97.9 F 67 16 147/76 11/06/23 14:00 16 Pulse Ox 11/07/23 07:00 96 11/07/23 02:17 94 L 11/06/23 21:50 98 11/06/23 21:17 96 11/06/23 21:16 11/06/23 20:00 96 11/06/23 16:00 96 11/06/23 14:03 97 11/06/23 14:00 Intake and Output 11/06/23 11/07/23 11/07/23 22:59 06:59 14:59 Intake Total 500 118 Output Total 1500 100 Balance -1000 18 Intake: Oral 118 Hemodialysis 500 Output: Urine 100 Hemodialysis 1500 Other: Voiding Method Urinal Weight 81.647 kg Results - Lab Results Most recent lab results Calcium 8.9 mg/dL (8.7-10.3) 11/07/23 04:44 11/07/23 04:54 11/07/23 04:44 Assessment and Plan Plan: Assessment: 1. End-stage renal disease maintained on hemodialysis on Saturday schedule. 2. Status post fall. No acute fractures noted. 3. Chronic kidney disease mineral bone disease maintained on Renvela. 4. Diabetes mellitus. Plan: Hemodialysis tomorrow. Possible discharge today. Thank you for the consultation. I will continue to follow the patient with you during his hospital stay.
[2023-11-07 12:27] LABS: Glucose,Whole Blood 132 mg/dL (70-110)
[2023-11-07] MEDS ORDERED: lamoTRIgine 100 MG TAB PO SCH (17:30)
[2023-11-07] MEDS ORDERED: FENOFIBRATE 54 MG TAB PO SCH (17:30)
[2023-11-07] MEDS ORDERED: ATORVASTATIN 10 MG TAB PO SCH (17:30)
== END 2023-11-07 16:00 | disposition home health service (06) ==
LOC: EC 08:43 → 6NMEDSUR 12:32
PROVIDERS: ADMIT Internal Medicine; ATTEND Internal Medicine
DX: M54.50 Low back pain, unspecified (principal); G89.29 Other chronic pain; R29.6 Repeated falls; E78.5 Hyperlipidemia, unspecified; G47.30 Sleep apnea, unspecified; G20.A1 Parkinson's disease without dyskinesia, without mention of fluctuations; F31.9 Bipolar disorder, unspecified; F41.9 Anxiety disorder, unspecified; E11.22 Type 2 diabetes mellitus with diabetic chronic kidney disease; I12.0 Hypertensive chronic kidney disease with stage 5 chronic kidney disease or end stage renal disease; N18.6 End stage renal disease; D63.1 Anemia in chronic kidney disease; M89.8X9 Other specified disorders of bone, unspecified site; E03.9 Hypothyroidism, unspecified; Z87.891 Personal history of nicotine dependence; Z99.2 Dependence on renal dialysis; Z79.4 Long term (current) use of insulin; Z79.890 Hormone replacement therapy; Z79.899 Other long term (current) drug therapy
CPT/HCPCS: 96376 ×2; 96372 ×2; 96374; 99285; 36415; 93005; 97162; 80053; 80048; 82550; 85025 ×2; 86706; 87340; 83036; 72170; 73030; 71045; 72128; 72125; 72131; 70450; G0378 ×2; G0257; J2270; J1644 ×2; 90935

== ENCOUNTER → 2023-11-14 | Outpatient (CLI) | payer MEDICARE, BC ==
[2023-11-14 13:00] VITALS: BP 99/65; PULSE 70; RESP 16
--- NOTE | 2023-11-14 14:55 | P.PAINPG ---
PQRS Measure Charge Sheet Comment: HISTORY OF PRESENT ILLNESS: A 78 yr old wheelchair bound male w daughter at side as a referral from Dr Echols presents today w severe and chronic LBP > 10 yrs secondary to DDD, spondylosis and facet arthropathy without myelopathy for evaluation. Pt states pain level is provoked at 10 /10 in intensity, constant, localized in the lower lumbar spine, predominantly axial, sharp in character w occasional shooting pain towards the back of the LEs. Pain is provoked by standing from a sitting position. Pain is alleviated by PT x 5 wks in Sep 2023, heat, medications (Tramadol), Lidocaine topical, use of a wheelchair for ambulatory assistance, repositioning and rest. Oswestry axial pain score at 36. PMH: OA, NIDDM II, Hearing Disorder, Hyperlipidemia, CKD, ISAÍAS, Hypothyroid Disorder, Parkinson's Disease, MDD/ Anxiety/ Bipolar Disorder PSH: BL Knee Arthroscopy, L Foot Surgery, R Cataract Extraction, L Shoulder Arthroscopy, Tonsillectomy, Peritoneal Dialysis SH: Former tobacco user, No ETOH abuse, No illicit drug use FH: Fa- CA. Mo- CHF, at age 73. Bro- DM. Sis- DM. Children x3- No Reported History All: See list Meds: See list REVIEW OF ORGAN SYSTEMS: CONSTITUTIONAL: No fevers or chills. No recent weight loss. NEUROLOGICAL: + numbness and tingling along the distal extremities. No seizure disorders or headaches. MUSCULOSKELETAL: + pain PSYCHIATRIC: Denies current depression or suicidal thoughts. Physical Examinations : Constitutional : Cooperative , not in acute distress . Neurologic : Cranial nerve II to XII intact. No focal neurological deficits. Psychiatric : alert & oriented x 3. Matching mood & appropriate affect. Judgment & insight intact. Musculoskeletal : Cervical Spine Motor strength in the deltoid and biceps: Normal right side. Normal Left side Motor strength biceps and the wrist extensors: Normal right side . Normal left side Motor strength in the triceps muscle: Normal right side. Normal left side Deep tendon reflexes: Normal at the biceps. Normal at Brachioradialis. Normal at triceps Vertebral body tenderness to deep palpation over Cervical facet loading test: positive bilaterally Spurling test: positive bilaterally Neck distraction test: positive bilaterally Kassy sign: positive bilaterally Lumbar spine Motor strength lower extremities ,thigh and legs 5/5 Right side , 5/5 Left side Deep tendon reflexes : Normal Knee Jerk. Normal Ankle Jerk Vertebral body tenderness over Johnson Test positive Lumbar facet Loading Test: positive Right / positive Left L4-L5, L5-S1 Range of motion of the lumbar spine Flexion 30 degrees, extension 10 degrees Straight Leg Raise test: Left/ Right positive at degrees Yany test: positive right / positive left. Severe tenderness over the Sacroiliac joint on the Right / Left sides Gaenslen test: positive bilaterally Seated flexion test: positive bilat erally. Sacral spine : Severe tenderness over the Sacroiliac joint: right side / left side Range of motion: Flexion of the lumbar spine <60 degrees Range of motion: Extension of the lumbar spine <20 degrees Gaenslen's Test positive Yany test: positive right side / left side Thigh Thrust Test Sacral Thrust Test Imaging: CT noncontrast of the lumbar spine from 06/25/23 reviewed Assessment/ Plan : Lumbar DDD Recommendation of BL MBB L4-L5, L5-S1 #1. Pain at a series of injections for optimal pain relief. Risks, benefits of procedure discussed and patient verbalized understanding. Admits to anti- coagulant use or medical history of diabetes. Protocol for discontinuation/ continuation of medications stewart procedure discussed. Minimal anesthesia provided, if clinically indicated, consisting of Versed and Fentanyl. All questions answered. I have spent greater than 30 minutes on patient care today. Dr Garcia was available by phone for the evaluation of this patient. The time was used to review the medical records including relevant urine studies and Prescription history (MAPs), review of the available imaging, evaluation and examination of the patient, coordination of care with the medical staff and if applicable referring physicians, as well as creation of the medical record PQRS Narrative: Smoking Status Former smoker Home Medications: Ambulatory Orders Levothyroxine Sodium [Synthroid] 200 mcg PO DAILY 01/29/16 Escitalopram [Lexapro] 20 mg PO DAILY 11/06/19 Fenofibrate 54 mg PO W/SUPPER 02/19/22 lamoTRIgine [LaMICtal] 150 mg PO W/SUPPER 01/30/23 Carbidopa-Levodopa 25-250 mg [Sinemet 25-250 mg] 1 tab PO TID 07/09/23 Divalproex Sodium [Depakote] 1,000 mg PO HS 07/09/23 Divalproex [Depakote] 250 mg PO HS 07/09/23 Ibuprofen [Motrin Ib] 800 mg PO DAILY PRN 07/09/23 Cyanocobalamin [Vitamin B-12] 1,000 mcg PO DAILY tab 07/15/23 Cyclobenzaprine [Flexeril] 5 mg PO BID PRN #0 tab 07/15/23 traMADol HCl [Ultram] 50 mg PO Q6H PRN #12 tab 07/15/23 Folic Acid 0.4 mg PO DAILY 11/06/23 Lovastatin [Mevacor] 40 mg PO W/SUPPER 11/06/23 Midodrine HCl [ProAmatine] 10 mg PO DIRECTED PRN 11/06/23 Mirtazapine 7.5 mg PO HS 11/06/23 Psyllium Husk [Metamucil] 0.4 gm PO SUTUTHSA 11/06/23 Sevelamer [Renvela] 800 mg PO AC-TID 11/06/23 polyethylene glycoL 3350 [Miralax] 17 gm PO MOWEFR 11/06/23 Controlled Substance Measures - Controlled Substance Measures Is patient prescribed a controlled substance at discharge?: No
== END ==
LOC: PNWHC3 12:03
PROVIDERS: ATTEND Specialist
DX: M51.37 Other intervertebral disc degeneration, lumbosacral region (principal); M47.817 Spondylosis without myelopathy or radiculopathy, lumbosacral region; M19.90 Unspecified osteoarthritis, unspecified site; E78.5 Hyperlipidemia, unspecified; G47.33 Obstructive sleep apnea (adult) (pediatric); F41.9 Anxiety disorder, unspecified; F31.9 Bipolar disorder, unspecified; E11.22 Type 2 diabetes mellitus with diabetic chronic kidney disease; N18.9 Chronic kidney disease, unspecified; E03.9 Hypothyroidism, unspecified; Z86.69 Personal history of other diseases of the nervous system and sense organs; Z87.891 Personal history of nicotine dependence; Z79.890 Hormone replacement therapy
CPT/HCPCS: 99211

== ENCOUNTER 2023-12-03 08:49 | Day surgery (SDC) | payer MEDICARE, BC ==
[~2023-12-03 08:49] MED LIST changes: -ACETAMINOPHEN TAB 500 MG TAB PO PRN; -HEPARIN SODIUM,PORCINE/PF 5,000 UNIT/0.5 ML SYRINGE SQ PRN; +LACTATED RINGERS 1,000 ML IV SCH
[2023-12-03] MEDS ORDERED: SODIUM CHLORIDE 0.9% 1,000 ML IV ONE (09:29)
[2023-12-03 09:35] LABS: Glucose,Whole Blood 147 mg/dL (70-110)
[2023-12-03 09:47] VITALS: RESP 16; TEMP 97.8
[2023-12-03] MEDS ORDERED: ROPIVACAINE 5MG/ML 20ML VIAL ONE (09:47)
[2023-12-03] MEDS ORDERED: methylPREDNISolone ACETATE 40 MG/ML 1 ML VIAL ONE (09:47)
[2023-12-03] MEDS ORDERED: fentaNYL (PF) 50 MCG/ML 2 ML AMP ONE (09:47)
[2023-12-03] MEDS ORDERED: MIDAZOLAM 2 MG/2 ML VIAL ONE (09:47)
--- NOTE | 2023-12-03 09:59 | P.PCN ---
Date of Procedure: 12/03/23 Procedure(s) Performed: PREOPERATIVE DIAGNOSIS : 1- Lumbar spondylosis with Facet Arthropathy with out myelopathy . 2- Lumber degenerative disc disease POSTOPERATIVE DIAGNOSIS: 1- Lumbar spondylosis with Facet Arthropathy without myelopathy . 2- Lumber degenerative disc disease PROCEDURE: Diagnostic bilateral L3 , L4 , and L5 medial branch block under fluoroscopy guidance(fluoroscopy images available in the radiology Department ) ( To target the facet joint between Bilateral L4-5 , and L5-S1 )#1st ANESTHESIA: moderate sedation with intravenous Versed 1 mg and Fentanyl 50 mcg.( sedation started at 09:47, ended at 09:56 ) EBL: Minimal COMPLICATION: None PROCEDURE INDICATION: Chronic low back pain secondary to Facet arthropathy unresponsive to conservative treatment. PROCEDURE DESCRIPTION: the patient was seen and identified in the preop holding area , risks and benefits and possible complications of the procedure and alternative were discussed with the patient, and the patient agreed to proceed with the procedure and signed the consent and vital signs monitored during the procedure and fluoroscopy was used to maximize the benefit and accuracy of the needle placement, and sedation was given to decrease patient anxiety, patient was taken to the procedure room and placed in prone position vital signs monitored in the back prepped with chlorhexidine X3 then under strict sterile technique using a right oblique fluoroscopy ,the junction of the transverse process and the superior articulating process of the right L3 , L4 , and L5 vertebra which corresponding to the fluoroscopy image of the eye of the Didier dog on the block side for the medial branches and subsequently , after local infiltration of skin and subcu tissuies with Ropivacaine 0.5 % , one mL at each level ,then 22-gauge Quincke-type needles , 3 needle was used , each one of them placed at the junction of the base of the transverse process and the superior articular process at the appropriate level, and the needle was advanced until the periosteum contacted, needle placement confirmed with AP oblique and lateral view and after appropriate needle placement confirmed, and after negative aspiration for heme and CSF and there was no paresthesia 1-1/2 mL of Ropivacaine 0.5% mixed with 20 mg Depo-Medrol , then half mL injected at each level after negative aspiration the needle subsequently removed and the same procedure repeated for the left side at left side at L3 , L4 and L5 levels. At the end of the procedure and the needles removed and a bandage applied after the skin was cleaned the cleaning solution patient taken to recovery room in stable condition and monitors in the recovery room for 20-30 minutes and discharged home in stable condition after discharge criteria met and patient will follow up with the pain clinic in 2-4 weeks
[2023-12-03] MEDS ORDERED: LACTATED RINGERS 1,000 ML IV ONE (10:05)
[2023-12-03 10:25] LABS: Glucose,Whole Blood 144 mg/dL (70-110)
[2023-12-03 10:44] VITALS: BP 121/67; PULSE 60
--- NOTE | 2023-12-03 11:19 | FL ---
EXAMINATION TYPE: FL guided pain mgmt statistic DATE OF EXAM: 12/03/[address] Peace Facet Block DAP- 0.87018 mGycm2. Fluoro- 6sec 4 images submitted.
== END 2023-12-03 10:53 | disposition home or self-care (01) ==
LOC: ORPAIN 08:49
PROVIDERS: ATTEND Specialist
DX: M47.816 Spondylosis without myelopathy or radiculopathy, lumbar region (principal); G89.29 Other chronic pain
CPT/HCPCS: 64493; 64494 ×2; J2250; J1030; J3010; J2795

== ENCOUNTER → 2023-12-30 | Outpatient (CLI) | payer MEDICARE, BC ==
--- NOTE | 2023-12-30 14:57 | P.PAINPG ---
PQRS Measure Charge Sheet Comment: HISTORY OF PRESENT ILLNESS: A 78 yr old wheelchair bound male w daughter at side presents today w severe and chronic LBP > 10 yrs secondary to DDD, spondylosis and facet arthropathy without myelopathy for evaluation s/p BL MBB L3-L5 #1. Pt states he experienced 0 % pain relief s/p procedure. Pt states pain level is provoked at 10 /10 in intensity, constant, localized in the lower lumbar spine, predominantly axial, sharp in character w occasional shooting pain towards the back of the LEs. Pain is provoked by standing from a sitting position. Pain is alleviated by PT x 5 wks in Sep 2023, heat, medications, topical, use of a wheelchair for ambulatory assistance, repositioning and rest. He states he was told he is not a surgical candidate. Oswestry axial pain score at 36. Interventional procedures include BL MBB L3-L5 x1 Medications include Tramadol, Lidocaine REVIEW OF ORGAN SYSTEMS: CONSTITUTIONAL: No fevers or chills. No recent weight loss. NEUROLOGICAL: + numbness and tingling along the distal extremities. No seizure disorders or headaches. MUSCULOSKELETAL: + pain PSYCHIATRIC: Denies current depression or suicidal thoughts. Physical Examinations : Constitutional : Cooperative , not in acute distress . Neurologic : Cranial nerve II to XII intact. No focal neurological deficits. Psychiatric : alert & oriented x 3. Matching mood & appropriate affect. Judgment & insight intact. Musculoskeletal : Cervical Spine Motor strength in the deltoid and biceps: Normal right side. Normal Left side Motor strength biceps and the wrist extensors: Normal right side . Normal left side Motor strength in the triceps muscle: Normal right side. Normal left side Deep tendon reflexes: Normal at the biceps. Normal at Brachioradialis. Normal at triceps Vertebral body tenderness to deep palpation over Cervical facet loading test: positive bilaterally Spurling test: positive bilaterally Neck distraction test: positive bilaterally Kassy sign: positive bilaterally Lumbar spine Motor strength lower extremities ,thigh and legs 5/5 Right side , 5/5 Left side Deep tendon reflexes : Normal Knee Jerk. Normal Ankle Jerk Vertebral body tenderness over Johnson Test positive Lumbar facet Loading Test: positive Right / positive Left L4-L5, L5-S1 Range of motion of the lumbar spine Flexion 30 degrees, extension 10 degrees Straight Leg Raise test: Left/ Right positive at degrees Yany test: positive right / positive left. Severe tenderness over the Sacroiliac joint on the Right / Left sides Nicolasalen test: positive bilaterally Seated flexion test: positive bilaterally. Sacral spine : Severe tenderness over the Sacroiliac joint: right side / left side Range of motion: Flexion of the lumbar spine <60 degrees Range of motion: Extension of the lumbar spine <20 degrees Gaenslen's Test positive Yany test: positive right side / left side Thigh Thrust Test Sacral Thrust Test Imaging: CT noncontrast of the lumbar spine from 06/25/23 reviewed Assessment/ Plan : Lumbar DDD Recommendation of medication management. Tyl #3 #120 w 1 RF. Will discontinue Tramadol (Ultram). Narcotic/ Opiate agreement entered 12/30/23. Use, side effects, adverse reactions and safe storage discussed. All questions answered. I have spent greater than 30 minutes on patient care today. Dr Garcia was available by phone for the evaluation of this patient. The time was used to review the medical records including relevant urine studies and Prescription history (MAPs), review of the available imaging, evaluation and examination of the patient, coordination of care with the medical staff and if applicable referring physicians, as well as creation of the medical record - Pain Location Bilateral Lower Back Non-Pharmacological Interventions: Heat, Inactivity, Physical Therapy, Position/Reposition, Relaxation Technique Pharmacological Interventions: Block, Epidural, PRN Medication, Scheduled Medication PQRS Narrative: Smoking Status Former smoker Hx Alcohol Use (MH) No Home Medications: Ambulatory Orders Levothyroxine Sodium [Synthroid] 200 mcg PO DAILY 01/29/16 Escitalopram [Lexapro] 20 mg PO DAILY 11/06/19 Fenofibrate 54 mg PO W/SUPPER 02/19/22 lamoTRIgine [LaMICtal] 150 mg PO W/SUPPER 01/30/23 Carbidopa-Levodopa 25-250 mg [Sinemet 25-250 mg] 1 tab PO TID 07/09/23 Divalproex Sodium [Depakote] 1,000 mg PO HS 07/09/23 Divalproex [Depakote] 250 mg PO HS 07/09/23 Ibuprofen [Motrin Ib] 800 mg PO DAILY PRN 07/09/23 Cyanocobalamin [Vitamin B-12] 1,000 mcg PO DAILY tab 07/15/23 Cyclobenzaprine [Flexeril] 5 mg PO BID PRN #0 tab 07/15/23 Folic Acid 0.4 mg PO DAILY 11/06/23 Lovastatin [Mevacor] 40 mg PO W/SUPPER 11/06/23 Midodrine HCl [ProAmatine] 10 mg PO DIRECTED PRN 11/06/23 Mirtazapine 7.5 mg PO HS 11/06/23 Psyllium Husk [Metamucil] 0.4 gm PO SUTUTHSA 11/06/23 polyethylene glycoL 3350 [Miralax] 17 gm PO MOWEFR 11/06/23 Calcium Acetate 667 mg PO DAILY 11/29/23 Ferrous Sulfate [Feosol] 325 mg PO DAILY 11/29/23 Acetaminophen-Codeine 300-30mg [Tylenol w/codeine #3] 1 tab PO QID 30 Days #120 tablet 12/30/23 Controlled Substance Measures - Controlled Substance Measures Is patient prescribed a controlled substance at discharge?: Yes When asked, does pt state using other controlled substances?: Yes If prescribed controlled substance>3 days was MAPS reviewed?: Yes If Rx opioid, was Start Talking consent form obtained?: Yes Was information provided regarding opioid addiction?: Yes
[2023-12-30 15:12] VITALS: BP 116/73; PULSE 84; RESP 16
== END ==
LOC: PNWHC3 14:27
PROVIDERS: ATTEND Specialist
DX: M47.816 Spondylosis without myelopathy or radiculopathy, lumbar region (principal); M51.36 Other intervertebral disc degeneration, lumbar region; Z87.891 Personal history of nicotine dependence
CPT/HCPCS: 99211

== ENCOUNTER 2024-01-23 12:07 | Emergency (ER) | payer MEDICARE, BC ==
[2024-01-23] MEDS: MORPHINE SULFATE 4 MG/ML SYRINGE IM STA (12:35)
--- NOTE | 2024-01-23 13:37 | XR ---
EXAMINATION TYPE: XR ribs LT w pa chest xray DATE OF EXAM: 01/23/2024 COMPARISON: NONE HISTORY: Pain TECHNIQUE: Frontal view the chest and 4 views of left ribs obtained FINDINGS: widening of the AC joint likely chronic with hypertrophic arthropathy. Calcification along the humeral head can be seen with calcific tendinosis. Diffuse osteopenia. Minimal atelectasis or tiny left-sided pleural effusion. Pleural-based thickening along the lateral left rib cage. No definite acute displaced rib fracture. IMPRESSION: 1. No definite acute displaced rib fracture. 2. Left lower lobe consolidation and pleural thickening or tiny effusion is similar to prior x-ray.
[2024-01-23 13:55] VITALS: RESP 18
--- NOTE | 2024-01-23 14:05 | ED ---
Fall HPI - General Chief Complaint: Fall Stated Complaint: fall Time Seen by Provider: 01/23/24 12:16 Source: patient, family, RN notes reviewed Mode of arrival: wheelchair Limitations: no limitations - History of Present Illness Initial Comments: 78-year-old male presents emergency department chief complaint of a fall. This happened on Saturday lost his balance. He has bruising on his left side of his ribs. Denies any head injury no loss conscious. Patient states the pain is worse today. He did complete his dialysis. Patient denies any lower extremity weakness or injuries. - Related Data Home Medications Medication Instructions Recorded Confirmed Levothyroxine Sodium [Synthroid] 200 mcg PO DAILY 01/29/16 12/30/23 Escitalopram [Lexapro] 20 mg PO DAILY 11/06/19 12/30/23 Fenofibrate 54 mg PO W/SUPPER 02/19/22 12/30/23 lamoTRIgine [LaMICtal] 150 mg PO W/SUPPER 01/30/23 12/30/23 Carbidopa-Levodopa 25-250 mg 1 tab PO TID 07/09/23 12/30/23 [Sinemet 25-250 mg] Divalproex Sodium [Depakote] 1,000 mg PO HS 07/09/23 12/30/23 Divalproex [Depakote] 250 mg PO HS 07/09/23 12/30/23 Ibuprofen [Motrin Ib] 800 mg PO DAILY PRN 07/09/23 12/30/23 Folic Acid 0.4 mg PO DAILY 11/06/23 12/30/23 Lovastatin [Mevacor] 40 mg PO W/SUPPER 11/06/23 12/30/23 Midodrine HCl [ProAmatine] 10 mg PO DIRECTED PRN 11/06/23 12/30/23 Mirtazapine 7.5 mg PO HS 11/06/23 12/30/23 Psyllium Husk [Metamucil] 0.4 gm PO SUTUTHSA 11/06/23 12/30/23 polyethylene glycoL 3350 [Miralax] 17 gm PO MOWEFR 11/06/23 12/30/23 Calcium Acetate 667 mg PO DAILY 11/29/23 12/30/23 Ferrous Sulfate [Feosol] 325 mg PO DAILY 11/29/23 12/30/23 Previous Rx's Medication Instructions Recorded Cyanocobalamin [Vitamin B-12] 1,000 mcg PO DAILY tab 07/15/23 Cyclobenzaprine [Flexeril] 5 mg PO BID PRN #0 tab 07/15/23 Acetaminophen-Codeine 300-30mg 1 tab PO QID 30 Days #120 tablet 12/30/23 [Tylenol w/codeine #3] traMADol HCl [Ultram] 50 mg PO Q6H PRN #12 tab 01/23/24 Allergies Allergy/AdvReac Type Severity Reaction Status Date / Time No Known Allergies Allergy Verified 12/30/23 14:54 Review of Systems ROS Statement: Those systems with pertinent positive or pertinent negative responses have been documented in the HPI. ROS Other: All systems not noted in ROS Statement are negative. Past Medical History Past Medical History: Diabetes Mellitus, Hearing Disorder / Deafness, Hyperlipidemia, Osteoarthritis (OA), Renal Disease, Sleep Apnea/CPAP/BIPAP, Thyroid Disorder Additional Past Medical History / Comment(s): Heart murmer, Parkinson's, CPAP use, hard of hearing. dailysis MWF , right arm fistula, History of Any Multi-Drug Resistant Organisms: None Reported Past Surgical History: Orthopedic Surgery, Tonsillectomy Additional Past Surgical History / Comment(s): Bilateral knee surgery, left foot bone spur, right cataract removed, left shoulder arthroscopy, peritoneal dialysis catheter placed now removed. fistula placement for dialysis Past Anesthesia/Blood Transfusion Reactions: No Reported Reaction Additional Past Anesthesia/Blood Transfusion Reaction / Comment(s): slow to wake and glucose tends to drop Past Psychological History: Anxiety, Bipolar, Depression Smoking Status: Former smoker Past Alcohol Use History: None Reported Past Drug Use History: None Reported - Past Family History Father Family Medical History: Cancer Mother Additional Family Medical History / Comment(s): Mother at age 74 from heart failure. Brother(s) Additional Family Medical History / Comment(s): Patient has one brother and one sister both have diabetes. Patient's 3 children with no major medical problems. General Exam Limitations: no limitations General appearance: alert, in no apparent distress Head exam: Present: atraumatic, normocephalic, normal inspection Respiratory exam: Present: normal lung sounds bilaterally, chest wall tenderness (Left). Absent: respiratory distress, wheezes, rales, rhonchi, stridor Cardiovascular Exam: Present: regular rate, normal rhythm, normal heart sounds. Absent: systolic murmur, diastolic murmur, rubs, gallop, clicks GI/Abdominal exam: Present: soft, normal bowel sounds. Absent: distended, tenderness, guarding, rebound, rigid Extremities exam: Present: normal inspection, full ROM, normal capillary refill. Absent: tenderness, pedal edema, joint swelling, calf tenderness Back exam: Present: full ROM. Absent: tenderness, paraspinal tenderness, vertebral tenderness Course Vital Signs 01/23/24 01/23/24 12:12 13:27 Temperature 98.7 F Pulse Rate 67 55 L Respiratory 16 18 Rate Blood Pressure 117/67 104/58 O2 Sat by Pulse 98 98 Oximetry Medical Decision Making - Medical Decision Making Was pt. sent in by a medical professional or institution (, PA, ANTIQUE JEWELRY REPAIRER, urgent care, hospital, or skilled nursing...) When possible be specific @ -No Did you speak to anyone other than the patient for history (EMS, parent, family, police, friend...)? What history was obtained from this source @ -No Did you review nursing and triage notes (agree or disagree)? Why? @ -I reviewed and agree with nursing and triage notes Were old charts reviewed (outside hosp., previous admission, EMS record, old EKG, old radiological studies, urgent care reports/EKG's, skilled nursing records)? Report findings @ -No old charts were reviewed Differential Diagnosis (chest pain, altered mental status, abdominal pain women, abdominal pain men, vaginal bleeding, weakness, fever, dyspnea, syncope, headache, dizziness, GI bleed, back pain, seizure, CVA, palpatations, mental health, musculoskeletal)? @ -Rib contusion, rib fracture, pneumothorax, fall EKG interpreted by me (3pts min.). @ -[None X-rays interpreted by me (1pt min.). @ -X-ray left rib series with chest showing no acute process no rib fracture similar findings of pleural effusion on the left CT interpreted by me (1pt min.). @ -None done U/S interpreted by me (1pt. min.). @ -None done What testing was considered but not performed or refused? (CT, X-rays, U/S, labs)? Why? @ -None What meds were considered but not given or refused? Why? @ -None Did you discuss the management of the patient with other professionals (professionals i.e. , PA, ANTIQUE JEWELRY REPAIRER, lab, RT, psych nurse, social studies teacher, transport aircrewman, teacher, senior credit officer, corrections caseworker)? Give summary @ -No Was smoking cessation discussed for >3mins.? @ -No Was critical care preformed (if so, how long)? @ -No Were there social determinants of health that impacted care today? How? (Homelessness, low income, unemployed, alcoholism, drug addiction, transportation, low edu. Level, literacy, decrease access to med. care, retirement, rehab)? @ -No Was there de-escalation of care discussed even if they declined (Discuss DNR or withdrawal of care, Hospice)? DNR status @ -No What co-morbidities impacted this encounter? (DM, HTN, Smoking, COPD, CAD, Cancer, CVA, ARF, Chemo, Hep., AIDS, mental health diagnosis, sleep apnea, morbid obesity)? @ -None Was patient admitted / discharged? Hospital course, mention meds given and route, prescriptions, significant lab abnormalities, going to OR and other pertinent info. @ -Discharged x-rays were negative for acute process. Patient has a left-sided rib contusion patient provided analgesics I did discuss with son and patient regarding at home analgesics. They have decided on tramadol for at home we did discuss return parameters. Undiagnosed new problem with uncertain prognosis? @ -No Drug Therapy requiring intensive monitoring for toxicity (Heparin, Nitro, Insulin, Cardizem)? @ -No Were any procedures done? @ -No Diagnosis/symptom? @ -Fall rib contusion Acute, or Chronic, or Acute on Chronic? @ -[Acute Uncomplicated (without systemic symptoms) or Complicated (systemic symptoms)? @ -Uncomplicated Side effects of treatment? @ -No Exacerbation, Progression, or Severe Exacerbation? @ -No Poses a threat to life or bodily function? How? (Chest pain, [place], [place], pneumonia, PE, COPD, DKA, ARF, appy, cholecystitis, CVA, Diverticulitis, Homicidal, Suicidal, threat to staff... and all critical care pts) @ -No Disposition Clinical Impression: Fall, Contusion of rib on left side Disposition: HOME SELF-CARE Condition: Stable Instructions (If sedation given, give patient instructions): Rib Contusion (ED) Additional Instructions: Please return to the Emergency Department if symptoms worsen or any other concerns. Prescriptions: traMADol HCl [Ultram] 50 mg PO Q6H PRN #12 tab PRN Reason: Pain Is patient prescribed a controlled substance at d/c from ED?: Yes When asked, does pt state using other controlled substances?: No If prescribed controlled substance>3 days was MAPS reviewed?: Prescribed <3 Days If opioid is for acute pain is fill amount 7 days or less?: Yes If Rx opioid, was Start Talking consent form obtained?: Yes Referrals: Kimberly Gerardo MD [Primary Care Provider] - 1-2 days Time of Disposition: 14:04
[2024-01-23 14:33] VITALS: BP 110/68; PULSE 58; TEMP 98.2
== END 2024-01-23 14:27 | disposition home or self-care (01) ==
LOC: EC 12:07
DX: S20.212A Contusion of left front wall of thorax, initial encounter (principal); Z87.891 Personal history of nicotine dependence; W18.30XA Fall on same level, unspecified, initial encounter
CPT/HCPCS: 71101; 99284; 96372; J2270

== ENCOUNTER 2024-01-27 05:47 | Inpatient (IN) | payer MEDICARE, BC ==
--- NOTE | 2024-01-27 06:29 | ED ---
Back Pain [facility] - General Chief Complaint: Back Pain/Injury Stated Complaint: Weakness Time Seen by Provider: 01/27/24 05:57 Source: patient, family, EMS, RN notes reviewed Mode of arrival: EMS Limitations: no limitations - History of Present Illness Initial Comments: This is a 78-year-old male who presents to the emergency department for pain in the back and over the left rib cage. Patient has a longstanding history of chronic back pain and follows with the pain clinic. 1 to 2 weeks ago he had a fall and injured his lower back, which further exacerbated the problem. He was evaluated here 4 days ago and had negative imaging at that time. His pain was well-controlled in the emergency department before discharge home. He was given a prescription for tramadol, which has not been effective. His son states that he had also been given a prescription for Tylenol #3 by pain management. Has also tried Flexeril. States that most of these medications put him to sleep, but do not help very much with the pain. He is on hemodialysis Saturday, Saturday, and Saturday. He missed his dialysis session on Saturday, 3 days ago. He is also supposed to go to dialysis again today. He missed dialysis 3 days ago due to his increasing pain. It is also becoming increasingly difficult to take a deep breath. Family is concerned about him missing too much dialysis and that he is starting to swell. Additionally, he is getting progressively more weak. Especially due to his pain. He lives with his family and uses a walker. However, states that they are unable to get him to the bathroom at this point and would like to look into getting him placed in a senior care. MD Complaint: back pain - Related Data Home Medications Medication Instructions Recorded Confirmed Levothyroxine Sodium [Synthroid] 200 mcg PO AC-BRKFST 01/29/16 01/27/24 Escitalopram [Lexapro] 20 mg PO DAILY 11/06/19 01/27/24 Fenofibrate 54 mg PO W/SUPPER 02/19/22 01/27/24 lamoTRIgine [LaMICtal] 150 mg PO W/SUPPER 01/30/23 01/27/24 Carbidopa-Levodopa 25-250 mg 1 tab PO QID 07/09/23 01/27/24 [Sinemet 25-250 mg] Divalproex Sodium [Depakote] 1,000 mg PO W/SUPPER 07/09/23 01/27/24 Divalproex [Depakote] 250 mg PO W/SUPPER 07/09/23 01/27/24 Folic Acid 0.4 mg PO Q2D 11/06/23 01/27/24 Lovastatin [Mevacor] 40 mg PO W/SUPPER 11/06/23 01/27/24 Midodrine HCl [ProAmatine] 10 mg PO MOWEFR PRN 11/06/23 01/27/24 Mirtazapine 7.5 mg PO HS 11/06/23 01/27/24 Ferrous Sulfate [Feosol] 325 mg PO DAILY 11/29/23 01/27/24 Calcium Acetate 667mg Caps 1,334 mg PO AC-TID 01/27/24 01/27/24 Folic Acid 0.8 mg PO Q2D 01/27/24 01/27/24 Lactulose 20 gm PO DAILY PRN 01/27/24 01/27/24 Lidocaine-Prilocaine Cream [Emla 1 applic TOPICAL MOWEFR PRN 01/27/24 01/27/24 Cream 2.5%/2.5%] Omeprazole 20 mg PO DAILY 01/27/24 01/27/24 Previous Rx's Medication Instructions Recorded Cyanocobalamin [Vitamin B-12] 1,000 mcg PO DAILY tab 07/15/23 Allergies Allergy/AdvReac Type Severity Reaction Status Date / Time No Known Allergies Allergy Verified 01/27/24 13:57 Review of Systems ROS Statement: Those systems with pertinent positive or pertinent negative responses have been documented in the HPI. ROS Other: All systems not noted in ROS Statement are negative. Past Medical History Past Medical History: Diabetes Mellitus, Hearing Disorder / Deafness, Hyperlipidemia, Osteoarthritis (OA), Renal Disease, Sleep Apnea/CPAP/BIPAP, Thyroid Disorder Additional Past Medical History / Comment(s): Heart murmer, Parkinson's, CPAP use, hard of hearing. dailysis MWF , right arm fistula, History of Any Multi-Drug Resistant Organisms: None Reported Past Surgical History: Orthopedic Surgery, Tonsillectomy Additional Past Surgical History / Comment(s): Bilateral knee surgery, left foot bone spur, right cataract removed, left shoulder arthroscopy, peritoneal dialysis catheter placed now removed. fistula placement for dialysis Past Anesthesia/Blood Transfusion Reactions: No Reported Reaction Additional Past Anesthesia/Blood Transfusion Reaction / Comment(s): slow to wake and glucose tends to drop Past Psychological History: Anxiety, Bipolar, Depression Smoking Status: Former smoker Past Alcohol Use History: None Reported Past Drug Use History: None Reported - Past Family History Father Family Medical History: Cancer Mother Additional Family Medical History / Comment(s): Mother at age 74 from heart failure. Brother(s) Additional Family Medical History / Comment(s): Patient has one brother and one sister both have diabetes. Patient's 3 children with no major medical problems. General Exam Limitations: no limitations General appearance: alert, in no apparent distress Head exam: Present: atraumatic, normocephalic, normal inspection Respiratory exam: Present: normal lung sounds bilaterally, chest wall tenderness (Left lower rib cage). Absent: respiratory distress, wheezes, rales, rhonchi, stridor Cardiovascular Exam: Present: regular rate, normal rhythm, normal heart sounds. Absent: systolic murmur, diastolic murmur, rubs, gallop, clicks Neurological exam: Present: alert, oriented X3, CN II-XII intact Psychiatric exam: Present: normal affect, normal mood Course Vital Signs 01/27/24 01/27/24 01/27/24 05:56 06:10 07:49 Temperature 98.6 F Pulse Rate 60 Pulse Rate [ 65 Dermatology Physician Assistant ] Respiratory 20 22 16 Rate Blood Pressure 137/71 O2 Sat by Pulse 96 Oximetry 01/27/24 01/27/24 01/27/24 08:00 13:01 14:15 Temperature 96.1 F L Pulse Rate 54 L 55 L 53 L Pulse Rate [ 54 L Dermatology Physician Assistant ] Respiratory 17 18 18 Rate Blood Pressure 123/62 141/72 136/76 O2 Sat by Pulse 96 95 Oximetry Medical Decision Making - Medical Decision Making This is a 78-year-old male who presents to the emergency department for increasing back pain/left rib cage pain. Was pt. sent in by a medical professional or institution? @ -No Did you speak to anyone other than the patient for history? @ -No Did you review nursing and triage notes? @ -Yes, and I agree, it is accurate with regards to the patient's symptoms. Were old charts reviewed? @ -X-ray of the chest and left rib cage from 01/23/24 demonstrating no definitive fractures. Differential Diagnosis? @ -Differential Back Pain: Strain, zoster, cauda equina syndrome, epidural abscess, vertebral oste omyelitis, discitis, fracture, subluxation, disc herniation, DJD, spinal stenosis, dissection, AAA, pancreatitis, peptic ulcer disease, pyelonephritis, kidney stone, this is not meant to be an all-inclusive list. EKG interpreted by me (3pts min.)? @ -Not obtained X-rays interpreted by me (1pt min.)? @ -Not obtained CT interpreted by me (1pt min.)? @ -CT scan of the chest obtained. My interpretation identifies no evidence of any rib fractures. U/S interpreted by me (1pt. min.)? @ -Not obtained What testing was considered but not performed? (CT, X-rays, U/S, labs)? Why? @ -None What meds were considered but not given? Why? @ -None Did you discuss the management of the patient with other professionals? @ -Yes, Dr. Gerardo, who accepts the patient for admission. Did you reconcile home meds? @ -Yes Was smoking cessation discussed for >3mins.? @ -No Was critical care preformed (if so, how long)? @ -No Were there social determinants of health that impacted care today? How? (Homelessness, low income, unemployed, alcoholism, drug addiction, transportation, low edu. Level, literacy, decrease access to med. care, alf, re hab)? @ -No Was there de-escalation of care discussed even if they declined? (Discuss DNR or withdrawal of care, Hospice)? @ -No What co-morbidities impacted this encounter? (DM, HTN, Smoking, COPD, CAD, Cancer, CVA, Hep., AIDS, mental health diagnosis, sleep apnea, morbid obesity)? @ -DM, ESRD on dialysis, HLD Was patient admitted / discharged? @ -Admitted. Lab work demonstrates elevated creatinine of 8.36 and eGFR of 5, consistent with patient's missed dialysis. Potassium is within normal limits. Urinalysis negative for signs of infection. COVID, influenza, and RSV testing negative. Given the previously negative chest x-ray, we obtained a CT scan of the chest to evaluate for any potential rib fractures. No rib fractures were identified. He has small left pleural effusions and compressive atelectasis on the left, which is consistent with prior imaging. Pain well-controlled in the emergency department. We then tried to stand the patient up with a walker. Despite the assistance of several staff members, he was unable to move around and do more than stand for a short period of time, when he then fell back into the bed. Given the progressive weakness and in the patient's current state, he was not in a position where he would go home safely. Patient subsequently admitted to medicine for further management of weakness. Consult placed for nephrology regarding end-stage renal disease on dialysis. Consult placed for PT/OT as well regarding the weakness. Undiagnosed new problem with uncertain prognosis? @ -None Drug Therapy requiring intensive monitoring for toxicity (Heparin, Nitro, Insulin, Cardizem)? @ -None Were any procedures done? @ -None Diagnosis/symptom? @ -Fall, left rib contusion, weakness Acute, or Chronic, or Acute on Chronic? @ -Acute Uncomplicated (without systemic symptoms) or Complicated (systemic symptoms)? @ -Complicated Side effects of treatment? @ -None Exacerbation, Progression, or Severe Exacerbation] @ -Progression Poses a threat to life or bodily function? @ -The pain and weakness are limiting his ability to function. This case was discussed in detail with the attending ED physician, Dr. Haywood. Presentation, findings, and treatment plan discussed in detail as well. - Lab Data Result diagrams: 01/27/24 07:10 01/27/24 07:10 Lab Results 01/27/24 01/27/24 01/27/24 Range/Units 07:10 07:10 07:10 WBC 6.1 (3.8-10.6) k/uL RBC 3.45 L (4.30-5.90) m/uL Hgb 11.4 L (13.0-17.5) gm/dL Hct 35.1 L (39.0-53.0) % MCV 101.8 H (80.0-100.0) fL MCH 33.2 (25.0-35.0) pg MCHC 32.6 (31.0-37.0) g/dL RDW 14.8 (11.5-15.5) % Plt Count 147 L (150-450) k/uL MPV 7.4 Neutrophils % 70 % Lymphocytes % 20 % Monocytes % 8 % Eosinophils % 0 % Basophils % 1 % Neutrophils # 4.2 (1.3-7.7) k/uL Lymphocytes # 1.2 (1.0-4.8) k/uL Monocytes # 0.5 (0-1.0) k/uL Eosinophils # 0.0 (0-0.7) k/uL Basophils # 0.0 (0-0.2) k/uL Macrocytosis Slight Sodium 133 L (137-145) mmol/L Potassium 4.9 (3.5-5.1) mmol/L Chloride 97 L (98-107) mmol/L Carbon Dioxide 25 (22-30) mmol/L Anion Gap 11 mmol/L BUN 98 H (9-20) mg/dL Creatinine 8.36 H* (0.66-1.25) mg/dL Est GFR (CKD-EPI)AfAm 6 (>60 ml/min/1.73 sqM) Est GFR (CKD-EPI)NonAf 5 (>60 ml/min/1.73 sqM) Glucose 96 (74-99) mg/dL Calcium 8.3 L (8.4-10.2) mg/dL Total Bilirubin 0.7 (0.2-1.3) mg/dL AST 25 (17-59) U/L ALT <6 (4-49) U/L Alkaline Phosphatase 60 (38-126) U/L Total Protein 5.4 L (6.3-8.2) g/dL Albumin 2.9 L (3.5-5.0) g/dL Urine Color Colorless Urine Appearance Clear (Clear) Urine pH 7.0 (5.0-8.0) Ur Specific [place] 1.011 (1.001-1.035) Urine Protein 1+ H (Negative) Urine Glucose (UA) Negative (Negative) Urine Ketones Negative (Negative) Urine Blood Trace H (Negative) Urine Nitrite Negative (Negative) Urine Bilirubin Negative (Negative) Urine Urobilinogen <2.0 (<2.0) mg/dL Ur Leukocyte Esterase Negative (Negative) Urine RBC <1 (0-5) /hpf Urine WBC 1 (0-5) /hpf Urine Mucus Rare H (None) /hpf Influenza Type A (PCR) (Not Detectd) Influenza Type B (PCR) (Not Detectd) RSV (PCR) (Not Detectd) SARS-CoV-2 (PCR) (Not Detectd) 01/27/24 Range/Units 07:10 WBC (3.8-10.6) k/uL RBC (4.30-5.90) m/uL Hgb (13.0-17.5) gm/dL Hct (39.0-53.0) % MCV (80.0-100.0) fL MCH (25.0-35.0) pg MCHC (31.0-37.0) g/dL RDW (11.5-15.5) % Plt Count (150-450) k/uL MPV Neutrophils % % Lymphocytes % % Monocytes % % Eosinophils % % Basophils % % Neutrophils # (1.3-7.7) k/uL Lymphocytes # (1.0-4.8) k/uL Monocytes # (0-1.0) k/uL Eosinophils # (0-0.7) k/uL Basophils # (0-0.2) k/uL Macrocytosis Sodium (137-145) mmol/L Potassium (3.5-5.1) mmol/L Chloride (98-107) mmol/L Carbon Dioxide (22-30) mmol/L Anion Gap mmol/L BUN (9-20) mg/dL Creatinine (0.66-1.25) mg/dL Est GFR (CKD-EPI)AfAm (>60 ml/min/1.73 sqM) Est GFR (CKD-EPI)NonAf (>60 ml/min/1.73 sqM) Glucose (74-99) mg/dL Calcium (8.4-10.2) mg/dL Total Bilirubin (0.2-1.3) mg/dL AST (17-59) U/L ALT (4-49) U/L Alkaline Phosphatase (38-126) U/L Total Protein (6.3-8.2) g/dL Albumin (3.5-5.0) g/dL Urine Color Urine Appearance (Clear) Urine pH (5.0-8.0) Ur Specific [place] (1.001-1.035) Urine Protein (Negative) Urine Glucose (UA) (Negative) Urine Ketones (Negative) Urine Blood (Negative) Urine Nitrite (Negative) Urine Bilirubin (Negative) Urine Urobilinogen (<2.0) mg/dL Ur Leukocyte Esterase (Negative) Urine RBC (0-5) /hpf Urine WBC (0-5) /hpf Urine Mucus (None) /hpf Influenza Type A (PCR) Not Detected (Not Detectd) Influenza Type B (PCR) Not Detected (Not Detectd) RSV (PCR) Not Detected (Not Detectd) SARS-CoV-2 (PCR) Not Detected (Not Detectd) - Radiology Data Radiology results: report reviewed, image reviewed Disposition Clinical Impression: Weakness, Cannot walk, ESRD on dialysis Disposition: ADMITTED IP TO THIS [facility] Time of Disposition: 12:13
[2024-01-27] MEDS: LIDOCAINE 4% PATCH TOPICAL ONE (07:13)
[2024-01-27] MEDS: ORPHENADRINE 30 MG/ML 2 ML VIAL IVP STA (07:14)
[2024-01-27] MEDS: MORPHINE SULFATE 2 MG/ML SYRINGE IVP STA (07:14)
[2024-01-27 07:29] LABS: Basophils % (A) 1 %; Eosinophils % (A) 0 %; HCT 35.1 % (39.0-53.0); HGB 11.4 gm/dL (13.0-17.5); Lymphocytes # (A) 1.2 k/uL (1.0-4.8); Lymphocytes % (A) 20 %; MCH 33.2 pg (25.0-35.0); MCHC 32.6 g/dL (31.0-37.0); MCV 101.8 fL (80.0-100.0); Macrocytosis Slight; Mean Platelet Volume 7.4; Monocytes # (A) 0.5 k/uL (0-1.0); Monocytes % (A) 8 %; Neutrophils # (A) 4.2 k/uL (1.3-7.7); Neutrophils % (A) 70 %; Platelet Count 147 k/uL (150-450); RBC 3.45 m/uL (4.30-5.90); RDW 14.8 % (11.5-15.5); WBC 6.1 k/uL (3.8-10.6)
[2024-01-27 07:30] LABS: Appearance,Urine Clear (Clear); Bilirubin,Urine Negative (Negative); Blood,Urine Trace (Negative); Color,Urine Colorless; Glucose,Urine (UA) Negative (Negative); Ketones,Urine Negative (Negative); Leukocyte Esterase,Urine Negative (Negative); Mucus,Urine Rare /hpf; Nitrite,Urine Negative (Negative); Protein,Urine 1+ (Negative); RBC,Urine <1 /hpf (0-5); Specific Gravity,Urine 1.011 (1.001-1.035); Urobilinogen,Urine <2.0 mg/dL (<2.0); WBC,Urine 1 /hpf (0-5)
[2024-01-27 07:46] LABS: ALT <6 U/L (4-49); AST 25 U/L (17-59); African American GFR (CKD) 6 (>60 ml/min/1.73 sqM); Albumin 2.9 g/dL (3.5-5.0); Alkaline Phosphatase 60 U/L (38-126); Anion Gap 11 mmol/L; Blood Urea Nitrogen 98 mg/dL (9-20); Calcium 8.3 mg/dL (8.4-10.2); Carbon Dioxide 25 mmol/L (22-30); Chloride 97 mmol/L (98-107); Glucose 96 mg/dL (74-99); Non-African American GFR(CKD) 5 (>60 ml/min/1.73 sqM); Potassium 4.9 mmol/L (3.5-5.1); Sodium 133 mmol/L (137-145); Total Bilirubin 0.7 mg/dL (0.2-1.3); Total Protein 5.4 g/dL (6.3-8.2)
--- NOTE | 2024-01-27 08:24 | CT ---
EXAMINATION TYPE: CT chest wo con CT DLP: 463.2 mGycm, Automated exposure control for dose reduction was used. DATE OF EXAM: 01/27/2024 7:38 AM COMPARISON: Rib plain films 01/23/2024 . CLINICAL INDICATION:Male, 78 years old with history of Fall, left rib cage pain; PHH, Fall, Lt rib pa in TECHNIQUE: Multiple axial images were obtained through the chest. Sagittal and coronal reformats were created for review. Contrast used: mL of (None if empty) Oral contrast used: (None if empty) FINDINGS: Examination limited by lack of IV contrast. LUNGS/ PLEURA: Small left and trace right pleural effusions, of near fluid density. No pneumothorax. Subsegmental atelectasis adjacent to the effusions, greater on the left. No definite evidence of acut e lung injury in the aerated lungs. Some pleural fluid tracks within the left oblique fissure. AIRWAY: Central airways are patent. LOWER NECK: No significant findings. Thyroid not in the field of view. MEDIASTINUM: No evidence of enlarged mediastinal nodes.. No hematoma or free gas. HEART: Mild to moderate cardiomegaly. Moderate to severe coronary artery calcification and/or stents. No appreciable pericardial effusion. VASCULATURE: Moderate atherosclerotic calcifications of the aorta and branches, to include the aorti c valve. Ascending aorta is up to 3.6 CM, descending is up to 2.8 CM. Aorta is considered ectatic in the ascending segment. Pulmonary trunk measures 3 CM. Pulmonary trunk is borderline enlarged, this can be seen with pulmonar y hypertension. SOFT TISSUES/LYMPH NODES: Unremarkable soft tissues. No axillary adenopathy. UPPER ABDOMEN: No definite acute abnormalities. Partially seen nodules involving both kidneys, probab ly cysts but its are not fully seen or characterized. The visualized portion of the gallbladder appea rs distended without calcified stones evident. No evidence of pericholecystic inflammation. The CBD i s mildly prominent measuring up to 7.4 mm, however may be normal for patient age. MUSCULOSKELETAL: No evidence of acute rib or other fracture. Degenerative changes of the thoracic spi ne with predominantly anterior marginal osteophytes. Some flowing anterior syndesmophytes are seen in the lower cervical and upper thoracic region, the appearance suggests DISH. 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 Moderate degenera tive changes of the shoulders. IMPRESSION: 1. No evidence of acute rib or other fracture in the chest. 2. No pneumothorax. 3. Small left and trace right pleural effusions. 4. Compressive atelectasis adjacent to the effusions, left more than right. Otherwise no evidence of acute traumatic lung injury.
[2024-01-27] MEDS: CAPSAICIN 0.025% CREAM 60 GM TUBE TOPICAL STA (10:41)
[2024-01-27] MEDS: DICLOFENAC SODIUM GEL 100 GM TUBE TOPICAL STA (10:41)
[2024-01-27] MEDS ORDERED: NALOXONE 0.4 MG/ML 1 ML VIAL IV PRN (12:13)
[2024-01-27] MEDS ORDERED: ONDANSETRON 4 MG/2 ML VIAL IVP PRN (12:20)
--- NOTE | 2024-01-27 14:12 | P.NPCON ---
History of Present Illness - Reason for Consult end stage renal disease - History of Present Illness Reason for consultation: ESRD HPI: 78 y/o M seen in renal consultation for ESRD. He is maintained on HD MWF schedule. Patient was seen and examined in the ER. Patient underwent HD last on Saturday but he cut the treatment short. He missed Saturday's treatment due to pain. Patient is quite lethargic and poor historian at this time. Son-in-law is present at bedside. Patient lives by himself and sustained a fall last Saturday. He was evaluated at this facility and imaging was negative. He continues to have back pain and has been feeling weak. No dizziness or syncopal episodes. Family is concerned of him living alone and asking about potential rehab. Hemodynamically stable. Vital signs stable. NC/AT. Regular rate and rhythm. Abdomen non-tender. No edema. Past Medical History Past Medical History: Diabetes Mellitus, Hearing Disorder / Deafness, Hyperli pidemia, Osteoarthritis (OA), Renal Disease, Sleep Apnea/CPAP/BIPAP, Thyroid Disorder Additional Past Medical History / Comment(s): Heart murmer, Parkinson's, CPAP use, hard of hearing. dailysis MWF , right arm fistula, History of Any Multi-Drug Resistant Organisms: None Reported Past Surgical History: Orthopedic Surgery, Tonsillectomy Additional Past Surgical History / Comment(s): Bilateral knee surgery, left foot bone spur, right cataract removed, left shoulder arthroscopy, peritoneal dialysis catheter placed now removed. fistula placement for dialysis Past Anesthesia/Blood Transfusion Reactions: No Reported Reaction Additional Past Anesthesia/Blood Transfusion Reaction / Comment(s): slow to wake and glucose tends to drop Past Psychological History: Anxiety, Bipolar, Depression Smoking Status: Former smoker Past Alcohol Use History: None Reported Past Drug Use History: None Reported - Past Family History Father Family Medical History: Cancer Mother Additional Family Medical History / Comment(s): Mother at age 74 from heart failure. Brother(s) Additional Family Medical History / Comment(s): Patient has one brother and one sister both have diabetes. Patient's 3 children with no major medical problems. Medications and Allergies Home Medications Medication Instructions Recorded Confirmed Type Levothyroxine Sodium [Synthroid] 200 mcg PO AC-BRKFST 01/29/16 01/27/24 History Escitalopram [Lexapro] 20 mg PO DAILY 11/06/19 01/27/24 History Fenofibrate 54 mg PO W/SUPPER 02/19/22 01/27/24 History lamoTRIgine [LaMICtal] 150 mg PO W/SUPPER 01/30/23 01/27/24 History Carbidopa-Levodopa 25-250 mg 1 tab PO QID 07/09/23 01/27/24 History [Sinemet 25-250 mg] Divalproex Sodium [Depakote] 1,000 mg PO W/SUPPER 07/09/23 01/27/24 History Divalproex [Depakote] 250 mg PO W/SUPPER 07/09/23 01/27/24 History Cyanocobalamin [Vitamin B-12] 1,000 mcg PO DAILY tab 07/15/23 01/27/24 Rx Folic Acid 0.4 mg PO Q2D 11/06/23 01/27/24 History Lovastatin [Mevacor] 40 mg PO W/SUPPER 11/06/23 01/27/24 History Midodrine HCl [ProAmatine] 10 mg PO MOWEFR PRN 11/06/23 01/27/24 History Mirtazapine 7.5 mg PO HS 11/06/23 01/27/24 History Ferrous Sulfate [Feosol] 325 mg PO DAILY 11/29/23 01/27/24 History Calcium Acetate 667mg Caps 1,334 mg PO AC-TID 01/27/24 01/27/24 History Folic Acid 0.8 mg PO Q2D 01/27/24 01/27/24 History Lactulose 20 gm PO DAILY PRN 01/27/24 01/27/24 History Lidocaine-Prilocaine Cream [Emla 1 applic TOPICAL MOWEFR PRN 01/27/24 01/27/24 History Cream 2.5%/2.5%] Omeprazole 20 mg PO DAILY 01/27/24 01/27/24 History Allergies Allergy/AdvReac Type Severity Reaction Status Date / Time No Known Allergies Allergy Verified 01/27/24 05:56 Physical Exam Vitals: Vital Signs Temp Pulse Pulse Resp BP Pulse Ox 01/27/24 13:01 55 L 18 141/72 95 01/27/24 08:00 96.1 F L 54 L 54 L 17 123/62 96 01/27/24 07:49 65 16 03/25/24 06:10 22 01/27/24 05:56 98.6 F 60 20 137/71 96 Intake and Output 01/26/24 01/27/24 01/27/24 22:59 06:59 14:59 Intake Total 30 Balance 30 Intake: IV 30 Invasive Line 1 30 Other: Weight 83.552 kg Results - Lab Results Most recent lab results Calcium 8.3 mg/dL (8.4-10.2) L 01/27/24 07:10 01/27/24 07:10 01/27/24 07:10 Assessment and Plan Plan: Assessment: 1. ESRD on HD MWF schedule. 2. Debility. 3. S/p fall last week. 4. Chronic hypotension maintained on midodrine as needed. 5. CKD-MBD. 6. DM. Plan: HD today. Check phosphorus level. Thank you for the consultation. I will continue to follow the patient with you during his hospital stay.
[2024-01-27] MEDS ORDERED: MIDODRINE 5 MG TAB PO PRN (15:49)
[2024-01-27] MEDS ORDERED: LIDOCAINE-PRILOCAINE 2.5-2.5% CREAM 5 GM TUBE TOPICAL PRN (15:49)
[2024-01-27] MEDS ORDERED: LACTULOSE 200 GM/300 ML (FROM 1/2 GAL JUG) PO PRN (15:49)
[2024-01-27] MEDS ORDERED: NON FORMULARY DRUG (Folic Acid [Folic Acid] 0.8 MG Capsule) PO SCH (16:00)
[2024-01-27] MEDS: ACETAMINOPHEN TAB 325 MG TAB PO PRN (17:04)
[2024-01-27] MEDS: CALCIUM ACETATE 667 MG TAB PO SCH (17:06)
[2024-01-27] MEDS: FENOFIBRATE 54 MG TAB PO SCH (17:06)
[2024-01-27] MEDS: DIVALPROEX 250 MG TABLET.DR PO SCH (17:06)
[2024-01-27] MEDS: DIVALPROEX 500 MG TABLET.DR PO SCH (17:08)
[2024-01-27] MEDS: CARBIDOPA-LEVODOPA 25-250 MG 1 EACH TAB PO SCH (17:08)
[2024-01-27] MEDS: lamoTRIgine 100 MG TAB PO SCH (17:08)
[2024-01-27] MEDS: FOLIC ACID 1 MG TAB PO SCH (17:08)
[2024-01-27] MEDS: ATORVASTATIN 10 MG TAB PO SCH (17:09)
--- NOTE | 2024-01-27 17:42 | P.HPIM ---
History of Present Illness H&P Date: 01/27/24 Chief Complaint: Recurrent falls intractable low back pain. HISTORY OF PRESENT ILLNESS This is a 78 year old male patient with past medical history of hypertension, hyperlipidemia, hypothyroidism, diabetes mellitus type 2, end-stage renal disease on hemodialysis Saturday and Saturday, Parkinson's disease, bipolar disorder, patient was doing fine after he was admitted to [facility] for physical therapy rehabilitation last time he was in the hospital back in July 2023, he has been using a walker on a regular basis, patient did have a lot of adjustment in his home to accommodate his disabilities, apparently the patient has been falling at home because he loses his balance and he was seen and evaluated in my office he was placed on Tylenol No. 3 for pain control which made him extremely weak and encephalopathic so he was taken off of that and he was placed back on tramadol for to help his pain control without relief apparently the patient apparently the patient was seen in the emergency department about 4 days ago after he had fallen to his back that made him more symptomatic with left sided rib pain as well, at that time his pain got better in the emergency department he was sent home after he had multiple x-rays that they were all negative for acute fracture but did show evidence of significant spondylosis of the lumbar spine, patient at this time was not able to ambulate using even a walker so he was brought into the emergency department at [facility] today and he had a CT scan of the chest that did not show evidence of rib fractures it did show compressive atelectasis with small bilateral pleural effusion, patient eventually ended up getting pain management, the tried to ambulate the patient in the ER but the patient could not even stand up on his own, he fell down right away, the decision was made to keep the patient in the hospital with physical therapy evaluation, and try to get the patient into subacute rehabilitation as the patient is not able to to carry out activities of daily living, beside that the patient is living with a family member and they are not able to get him to the bathroom because of significant pain in gait dysfunction, and he had missed his dialysis 3 days ago and they were concerned about him missing the dialysis more often due to his pain management.. REVIEW OF SYSTEMS Constitutional: No fever, no chills, no night sweats. No weight change. Reported weakness, fatigue. No daytime sleepiness. HEENT: No headache. No nasal drainage or congestion. No epistaxis. No sore throat. Lungs: No shortness of breath, cough, no sputum production. No wheezing. Cardiovascular: No chest pain, no lower extremity edema. No palpitations. No p aroxysmal nocturnal dyspnea. No orthopnea. No lightheadedness or dizziness. No syncopal episodes. Abdominal: positive for abdominal pain. No nausea, vomiting. No diarrhea. positive for constipation. No bloody or tarry stools. positive for loss of appetite. Genitourinary: No dysuria, increased frequency, urgency. No urinary retention. Musculoskeletal: No myalgias. Reported muscle weakness, reported gait dysfunction with chronic shuffling gait secondary to Parkinson's, reported frequent falls. positive for back pain and neck pain. Integumentary: No wounds, no lesions. No rash or pruritus. positive for bruising. No change in hair or nails. Neurologic: No aphasia. No facial droop. No change in mentation. No head injury. No headache. No paralysis. No paresthesia. Psychiatric: Reported depression. No anxiety. Endocrine: No abnormal blood sugars. No weight change. No excessive sweating or thirst. No cold intolerance. MEDICAL HISTORY Hypertension Hyperlipidemia Hypothyroidism Diabetes mellitus type 2 End-stage renal disease on hemodialysis Saturday Parkinson's disease Bipolar disorder. SURGICAL HISTORY Left knee arthroscopically Left foot bone spur Left cataract surgery Left shoulder arthroscopically Right arm AV fistula Right groin Mg catheter. SOCIAL HISTORY Patient was a smoker one pack per day for 20 years ago quit 40 years ago. No alcohol use, no illicit drug use or marijuana use. He lives alone in senior housing. He normally uses a rolling walker for ambulation FAMILY HISTORY Father at age 73 from lung cancer with history of diabetes. Mother at age 74 from CHF. Brother is alive with diabetes. Sister is alive with diabetes. Patient has 2 daughters with no major medical problems. PHYSICAL EXAMINATION Gen: This is a 78-year-old male. He is resting in bed appears to be fairly comfortable. HEENT: Head is atraumatic, normocephalic. Pupils equal, round. Sclerae is anicteric. NECK: Supple. No JVD. No lymphadenopathy. No thyromegaly. LUNGS: Clear to auscultation. No wheezes or rhonchi. No intercostal retractions. HEART: Regular rate and rhythm. 2/6 systolic murmur at the left sternal border, no S3, no S4. ABDOMEN: Soft, non tender Bowel sounds are present. No masses.. EXTREMITIES: No pedal edema. No calf tenderness. Dorsalis pedis posterior bilaterally NEUROLOGICAL: Patient is awake, alert and oriented x2. Cranial nerves 2 through 12 are grossly intact. Deep tendon reflexes 2+ symmetrical, muscle power 3/5 in bilateral upper and lower extremities ASSESSMENT AND PLAN 1. Recurrent falls with acute on chronic back pain. we will start the patient on hydrocodone acetaminophen 7.5/325 mg orally every 8 hours as needed, I will start the patient on baclofen 5 mg orally twice every day, physical therapy and Occupational Therapy evaluation, discontinue Tylenol 3 and tramadol as the were ineffective. 2. End-stage renal disease on Saturday and Saturday patient missed dialysis treatment. Consult with Dr. Scott veliz. Patient is scheduled for hemodialysis today 3. Parkinson's disease. Consult with neurology. Patient is currently on Sinemet 01610 milligrams 4 times daily. 4. Hypertension. Patient not currently on medications. No documented episodes of hypotension 5. Hyperlipidemia. Continue atorvastatin 10 mg at bedtime, fenofibrate 54 mg at bedtime. 6. Hypothyroidism. Continue levothyroxine 200 g daily . 7. Diabetes mellitus type 2. With recent A1c 7.0. Continue NovoLog scale before meals and at bedtime. 8. Bipolar disorder. Patient is on Depakote 1250 mg po qhs and we will continue with Lamictal 150 mg po daily and Lexparo 20 mg po daily 9. 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 Continue ferrous sulfate 325 mg daily. 10. DVT prophylaxis. Heparin subcu 5000 units every 12 hours. 11. GI prophylaxis. Pepcid 20 mg po daily 12. Orthostatic hypotension continue patient on midodrine 10 mg orally Saturday and Saturday prior to dialysis. 13. No code. 14. Admit to inpatient, estimated length of stay 2 midnights Past Medical History Past Medical History: Diabetes Mellitus, Hearing Disorder / Deafness, Hyperlipidemia, Osteoarthritis (OA), Renal Disease, Sleep Apnea/CPAP/BIPAP, Thyroid Disorder Additional Past Medical History / Comment(s): Heart murmer, Parkinson's, CPAP use, hard of hearing. dailysis MWF , right arm fistula, History of Any Multi-Drug Resistant Organisms: None Reported Past Surgical History: Orthopedic Surgery, Tonsillectomy Additional Past Surgical History / Comment(s): Bilateral knee surgery, left foot bone spur, right cataract removed, left shoulder arthroscopy, peritoneal dialysis catheter placed now removed. fistula placement for dialysis Past Anesthesia/Blood Transfusion Reactions: No Reported Reaction Additional Past Anesthesia/Blood Transfusion Reaction / Comment(s): slow to wake and glucose tends to drop Past Psychological History: Anxiety, Bipolar, Depression Smoking Status: Former smoker Past Alcohol Use History: None Reported Past Drug Use History: None Reported - Past Family History Father Family Medical History: Cancer Mother Additional Family Medical History / Comment(s): Mother at age 74 from heart failure. Brother(s) Additional Family Medical History / Comment(s): Patient has one brother and one sister both have diabetes. Patient's 3 children with no major medical problems. Medications and Allergies Home Medications Medication Instructions Recorded Confirmed Type Levothyroxine Sodium [Synthroid] 200 mcg PO AC-BRKFST 01/29/16 01/27/24 History Escitalopram [Lexapro] 20 mg PO DAILY 11/06/19 01/27/24 History Fenofibrate 54 mg PO W/SUPPER 02/19/22 01/27/24 History lamoTRIgine [LaMICtal] 150 mg PO W/SUPPER 01/30/23 01/27/24 History Carbidopa-Levodopa 25-250 mg 1 tab PO QID 07/09/23 01/27/24 History [Sinemet 25-250 mg] Divalproex Sodium [Depakote] 1,000 mg PO W/SUPPER 07/09/23 01/27/24 History Divalproex [Depakote] 250 mg PO W/SUPPER 07/09/23 01/27/24 History Cyanocobalamin [Vitamin B-12] 1,000 mcg PO DAILY tab 07/15/23 01/27/24 Rx Folic Acid 0.4 mg PO Q2D 11/06/23 01/27/24 History Lovastatin [Mevacor] 40 mg PO W/SUPPER 11/06/23 01/27/24 History Midodrine HCl [ProAmatine] 10 mg PO MOWEFR PRN 11/06/23 01/27/24 History Mirtazapine 7.5 mg PO HS 11/06/23 01/27/24 History Ferrous Sulfate [Feosol] 325 mg PO DAILY 11/29/23 01/27/24 History Calcium Acetate 667mg Caps 1,334 mg PO AC-TID 01/27/24 01/27/24 History Folic Acid 0.8 mg PO Q2D 01/27/24 01/27/24 History Lactulose 20 gm PO DAILY PRN 01/27/24 01/27/24 History Lidocaine-Prilocaine Cream [Emla 1 applic TOPICAL MOWEFR PRN 01/27/24 01/27/24 History Cream 2.5%/2.5%] Omeprazole 20 mg PO DAILY 01/27/24 01/27/24 History Allergies Allergy/AdvReac Type Severity Reaction Status Date / Time No Known Allergies Allergy Verified 01/27/24 13:57 Physical Exam Vitals: Vital Signs Temp Pulse Pulse Resp BP Pulse Ox 01/27/24 14:15 53 L 18 136/76 01/27/24 13:01 55 L 18 141/72 95 01/27/24 08:00 96.1 F L 54 L 54 L 17 123/62 96 01/27/24 07:49 65 16 01/27/24 06:10 22 01/27/24 05:56 98.6 F 60 20 137/71 96 Intake and Output 01/27/24 01/27/24 01/27/24 06:59 14:59 22:59 Intake Total 30 Balance 30 Intake: IV 30 Invasive Line 1 30 Other: Weight 83.552 kg Results CBC & Chem 7: 01/27/24 07:10 01/27/24 07:10 Labs: Abnormal Lab Results - Last 24 Hours (Table) 01/27/24 01/27/24 01/27/24 Range/Units 07:10 07:10 07:10 RBC 3.45 L (4.30-5.90) m/uL Hgb 11.4 L (13.0-17.5) gm/dL Hct 35.1 L (39.0-53.0) % MCV 101.8 H (80.0-100.0) fL Plt Count 147 L (150-450) k/uL Sodium 133 L (137-145) mmol/L Chloride 97 L (98-107) mmol/L BUN 98 H (9-20) mg/dL Creatinine 8.36 H* (0.66-1.25) mg/dL Calcium 8.3 L (8.4-10.2) mg/dL Total Protein 5.4 L (6.3-8.2) g/dL Albumin 2.9 L (3.5-5.0) g/dL Urine Protein 1+ H (Negative) Urine Blood Trace H (Negative) Urine Mucus Rare H (None) /hpf
[2024-01-27] MEDS: MIRTAZAPINE 15 MG TAB PO SCH (21:03)
[2024-01-27] MEDS: HEPARIN SODIUM,PORCINE 5,000 UNIT/ML 1 ML VIAL SQ SCH (21:03)
[2024-01-28] MEDS: PANTOPRAZOLE 40 MG TABLET PO SCH (08:09)
[2024-01-28] MEDS: FERROUS SULFATE 325 MG TAB PO SCH (08:09)
[2024-01-28] MEDS: CYANOCOBALAMIN 500 MCG TAB PO SCH (08:09)
[2024-01-28] MEDS: ESCITALOPRAM 20 MG TAB PO SCH (08:10)
[2024-01-28] MEDS: LEVOTHYROXINE 100 MCG TAB PO SCH (08:10)
--- NOTE | 2024-01-28 10:42 | P.PN ---
Subjective Patient is seen in follow-up for end-stage renal disease. He is maintained on hemodialysis on Saturday schedule. No problems with dialysis yesterday. Resting in bed. Somewhat confused. Vital signs are stable. General: No acute distress. HEENT: Head exam is unremarkable. LUNGS: No audible rhonchi or wheezes. HEART: Rate and Rhythm are regular. ABDOMEN: Nontender. EXTREMITITES: No edema. Objective - Vital Signs Vital signs: Vital Signs Temp 98.2 F 01/28/24 07:00 Pulse 63 01/28/24 08:00 Resp 16 01/28/24 07:00 BP 143/76 01/28/24 07:00 Pulse Ox 97 01/28/24 07:00 FiO2 Intake & Output 01/27/24 01/28/24 01/28/24 18:59 06:59 18:59 Intake Total 630 Output Total 1700 Balance -1070 Weight 83.552 kg Intake: IV 30 Invasive Line 1 30 Hemodialysis 600 Output: Hemodialysis 1700 Other: # Voids 1 - Labs CBC & Chem 7: 01/27/24 07:10 01/27/24 07:10 Assessment and Plan Plan: Assessment: 1. ESRD on HD MWF schedule. 2. Debility. 3. S/p fall last week. 4. Chronic hypotension maintained on midodrine as needed. 5. 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 6. DM. Plan: Hemodialysis tomorrow. Check phosphorus level.
[2024-01-28 11:48] LABS: ALT <5 U/L (10-49); AST 24 U/L (14-35); Albumin 3.2 g/dL (3.8-4.9); Albumin/Globulin Ratio 1.39 Ratio (1.60-3.17); Alkaline Phosphatase 66 U/L (41-126); BUN/Creat Ratio 9.64 Ratio (12.00-20.00); Blood Urea Nitrogen 56.9 mg/dL (9.0-27.0); Calcium 8.9 mg/dL (8.7-10.3); Carbon Dioxide 28.9 mmol/L (21.6-31.8); Chloride 94 mmol/L (96-109); Globulin 2.3 g/dL (1.6-3.3); Glucose 81 mg/dL (70-110); Potassium 4.8 mmol/L (3.5-5.5); Sodium 136 mmol/L (135-145); Total Bilirubin 0.5 mg/dL (0.3-1.2); Total Protein 5.5 g/dL (6.2-8.2)
[2024-01-28 12:15] LABS: Basophils # (A) 0.03 X 10*3/uL (0.00-0.10); Basophils % (A) 0.7 %; Eosinophils # (A) 0.04 X 10*3/uL (0.04-0.35); HCT 35.7 % (39.6-50.0); HGB 11.6 g/dL (13.0-17.0); Lymphocytes # (A) 1.46 X 10*3/uL (0.90-5.00); Lymphocytes % (A) 35.2 %; MCHC 32.5 g/dL (32.0-37.0); MCV 101.4 FL (80.0-97.0); Monocytes # (A) 0.37 X 10*3/uL (0.20-1.00); Monocytes % (A) 8.9 %; NRBC Per 100 WBC 0 X 10*3/uL (0.00-0.01); Neutrophils # (A) 2.23 X 10*3/uL (1.80-7.70); Neutrophils % (A) 53.7 %; Platelet Count 99 X 10*3/uL (140-440); RBC 3.52 X 10*6/uL (4.40-5.60); RDW 14.9 % (11.5-14.5); WBC 4.15 X 10*3/uL (4.50-10.00)
[2024-01-28] MEDS: BACLOFEN 10 MG TAB PO PRN (14:29)
--- NOTE | 2024-01-28 18:47 | P.PN ---
Subjective Progress Note Date: 01/28/24 HISTORY OF PRESENT ILLNESS This is a 78 year old male patient with past medical history of hypertension, hyperlipidemia, hypothyroidism, diabetes mellitus type 2, end-stage renal diseas e on hemodialysis Saturday and Saturday, Parkinson's disease, bipolar disorder, patient was doing fine after he was admitted to [facility] for physical therapy rehabilitation last time he was in the hospital back in July 2023, he has been using a walker on a regular basis, patient did have a lot of adjustment in his home to accommodate his disabilities, apparently the patient has been falling at home because he loses his balance and he was seen and evaluated in my office he was placed on Tylenol No. 3 for pain control which made him extremely weak and encephalopathic so he was taken off of that and he was placed back on tramadol for to help his pain control without relief apparently the patient apparently the patient was seen in the emergency department about 4 days ago after he had fallen to his back that made him more symptomatic with left sided rib pain as well, at that time his pain got better in the emergency department he was sent home after he had multiple x-rays that they were all negative for acute fracture but did show evidence of significant spondylosis of the lumbar spine, patient at this time was not able to ambulate using even a walker so he was brought into the emergency department at [facility] today and he had a CT scan of the chest that did not show evidence of rib fractures it did show compressive atelectasis with small bilateral pleural effusion, patient eventually ended up getting pain management, the tried to ambulate the patient in the ER but the patient could not even stand up on his own, he fell down right away, the decision was made to keep the patient in the hospital with physical therapy evaluation, and try to get the patient into subacute rehabilitation as the patient is not able to to carry out activities of daily living, beside that the patient is living with a family member and they are not able to get him to the bathroom because of significant pain in gait dysfunction, and he had missed his dialysis 3 days ago and they were concerned about him missing the dialysis more often due to his pain management.. REVIEW OF SYSTEMS Constitutional: No fever, no chills, no night sweats. No weight change. Reported weakness, fatigue. No daytime sleepiness. HEENT: No headache. No nasal drainage or congestion. No epistaxis. No sore throat. Lungs: No shortness of breath, cough, no sputum production. No wheezing. Cardiovascular: No chest pain, no lower extremity edema. No palpitations. No paroxysmal nocturnal dyspnea. No orthopnea. No lightheadedness or dizziness. No syncopal episodes. Abdominal: positive for abdominal pain. No nausea, vomiting. No diarrhea. positive for constipation. No bloody or tarry stools. positive for loss of appetite. Genitourinary: No dysuria, increased frequency, urgency. No urinary retention. Musculoskeletal: No myalgias. Reported muscle weakness, reported gait dysfunction with chronic shuffling gait secondary to Parkinson's, reported frequent falls. positive for back pain and neck pain. Integumentary: No wounds, no lesions. No rash or pruritus. positive for bruising. No change in hair or nails. Neurologic: No aphasia. No facial droop. No change in mentation. No head injury. No headache. No paralysis. No paresthesia. Psychiatric: Reported depression. No anxiety. Endocrine: No abnormal blood sugars. No weight change. No excessive sweating or thirst. No cold intolerance. MEDICAL HISTORY Hypertension Hyperlipidemia Hypothyroidism Diabetes mellitus type 2 End-stage renal disease on hemodialysis Saturday Parkinson's disease Bipolar disorder. SURGICAL HISTORY Left knee arthroscopically Left foot bone spur Left cataract surgery Left shoulder arthroscopically Right arm AV fistula Right groin Mg catheter. SOCIAL HISTORY Patient was a smoker one pack per day for 20 years ago quit 40 years ago. No alcohol use, no illicit drug use or marijuana use. He lives alone in senior housing. He normally uses a rolling walker for ambulation FAMILY HISTORY Father at age 73 from lung cancer with history of diabetes. Mother at age 74 from CHF. Brother is alive with diabetes. Sister is alive with jodi munoz. Patient has 2 daughters with no major medical problems. PHYSICAL EXAMINATION Gen: This is a 78-year-old male. He is resting in bed appears to be fairly comfortable. HEENT: Head is atraumatic, normocephalic. Pupils equal, round. Sclerae is anicteric. NECK: Supple. No JVD. No lymphadenopathy. No thyromegaly. LUNGS: Clear to auscultation. No wheezes or rhonchi. No intercostal retractions. HEART: Regular rate and rhythm. 2/6 systolic murmur at the left sternal border, no S3, no S4. ABDOMEN: Soft, non tender Bowel sounds are present. No masses.. EXTREMITIES: No pedal edema. No calf tenderness. Dorsalis pedis posterior bilaterally NEUROLOGICAL: Patient is awake, alert and oriented x2. Cranial nerves 2 through 12 are grossly intact. Deep tendon reflexes 2+ symmetrical, muscle power 3/5 in bilateral upper and lower extremities ASSESSMENT AND PLAN 1. Recurrent falls with acute on chronic back pain. we will start the patient on hydrocodone acetaminophen 7.5/325 mg orally every 8 hours as needed, I will start the patient on baclofen 5 mg orally twice every day, physical therapy and Occupational Therapy evaluation, trying to get the patient to [facility] for physical therapy and rehabilitation in the next 24 hours. 2. End-stage renal disease on Saturday and Saturday patient missed dialysis treatment. Patient did get hemodialysis yesterday he will get that tomorrow morning. 3. Parkinson's disease. Consult with neurology. Patient is currently on Sinemet 51510 milligrams 4 times daily. 4. Hypertension. Patient not currently on medications. No documented episodes of hypotension 5. Hyperlipidemia. Continue atorvastatin 10 mg at bedtime, fenofibrate 54 mg at bedtime. 6. Hypothyroidism. Continue levothyroxine 200 g daily . 7. Diabetes mellitus type 2. With recent A1c 7.0. Continue NovoLog scale before meals and at bedtime. 8. Bipolar disorder. Patient is on Depakote 1250 mg po qhs and we will continue with Lamictal 150 mg po daily and Lexparo 20 mg po daily 9. 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 Continue ferrous sulfate 325 mg daily. 10. DVT prophylaxis. Heparin subcu 5000 units every 12 hours. 11. GI prophylaxis. Pepcid 20 mg po daily 12. Orthostatic hypotension continue patient on midodrine 10 mg orally Saturday and Saturday prior to dialysis. 13. Full code Objective - Vital Signs Vital signs: Vital Signs Temp 97.4 F L 01/28/24 16:40 Pulse 61 01/28/24 16:40 Resp 18 01/28/24 16:41 BP 109/67 01/28/24 16:40 Pulse Ox 97 01/28/24 16:40 FiO2 Intake & Output 03/25/24 03/26/24 03/26/24 18:59 06:59 18:59 Intake Total 630 118 Output Total 1700 Balance -1070 118 Weight 83.552 kg Intake: IV 30 Invasive Line 1 30 Oral 118 Hemodialysis 600 Output: Hemodialysis 1700 Other: Voiding Method Diaper # Voids 1 2 # Bowel Movements 1 - Labs CBC & Chem 7: 01/28/24 08:18 01/28/24 08:18 Labs: Abnormal Lab Results - Last 24 Hours (Table) 01/28/24 01/28/24 01/28/24 Range/Units 08:18 08:18 08:18 WBC 4.15 L (4.50-10.00) X 10*3/uL RBC 3.52 L (4.40-5.60) X 10*6/uL Hgb 11.6 L (13.0-17.0) g/dL Hct 35.7 L (39.6-50.0) % MCV 101.4 H (80.0-97.0) FL MCH 33.0 H (27.0-32.0) pg RDW 14.9 H (11.5-14.5) % Plt Count 99 L (140-440) X 10*3/uL Chloride 94 L (96-109) mmol/L Anion Gap 13.10 H (4.00-12.00) mmol/L BUN 56.9 H (9.0-27.0) mg/dL Creatinine 5.9 H (0.6-1.5) mg/dL Est GFR (CKD-EPI) 9 L (>=60) BUN/Creatinine Ratio 9.64 L (12.00-20.00) Ratio Phosphorus 5.7 H (2.4-5.1) mg/dL ALT <5 L (10-49) U/L Total Protein 5.5 L (6.2-8.2) g/dL Albumin 3.2 L (3.8-4.9) g/dL Albumin/Globulin Ratio 1.39 L (1.60-3.17) Ratio
[2024-01-29 11:11] LABS: Basophils # (A) 0.03 X 10*3/uL (0.00-0.10); Basophils % (A) 0.9 %; Eosinophils # (A) 0.03 X 10*3/uL (0.04-0.35); Eosinophils % (A) 0.9 %; HCT 36.3 % (39.6-50.0); HGB 11.7 g/dL (13.0-17.0); Lymphocytes # (A) 1.52 X 10*3/uL (0.90-5.00); Lymphocytes % (A) 47.8 %; MCH 32.6 pg (27.0-32.0); MCHC 32.2 g/dL (32.0-37.0); MCV 101.1 FL (80.0-97.0); Mean Platelet Volume 9.4 FL (9.5-12.2); Monocytes # (A) 0.28 X 10*3/uL (0.20-1.00); Monocytes % (A) 8.8 %; NRBC Per 100 WBC 0 X 10*3/uL (0.00-0.01); Neutrophils # (A) 1.29 X 10*3/uL (1.80-7.70); Neutrophils % (A) 40.7 %; Platelet Count 107 X 10*3/uL (140-440); RBC 3.59 X 10*6/uL (4.40-5.60); RDW 14.7 % (11.5-14.5); WBC 3.18 X 10*3/uL (4.50-10.00)
[2024-01-29 11:30] LABS: ALT <5 U/L (10-49); AST 20 U/L (14-35); Albumin 3.4 g/dL (3.8-4.9); Albumin/Globulin Ratio 1.55 Ratio (1.60-3.17); Alkaline Phosphatase 65 U/L (41-126); BUN/Creat Ratio 10.21 Ratio (12.00-20.00); Blood Urea Nitrogen 68.4 mg/dL (9.0-27.0); Calcium 8.5 mg/dL (8.7-10.3); Carbon Dioxide 28.9 mmol/L (21.6-31.8); Chloride 94 mmol/L (96-109); Globulin 2.2 g/dL (1.6-3.3); Glucose 90 mg/dL (70-110); Potassium 4.3 mmol/L (3.5-5.5); Sodium 135 mmol/L (135-145); Total Bilirubin 0.4 mg/dL (0.3-1.2); Total Protein 5.6 g/dL (6.2-8.2)
--- NOTE | 2024-01-29 12:03 | P.PN ---
Subjective Patient is seen in follow-up for end-stage renal disease. He is maintained on hemodialysis on Saturday schedule. Tolerating dialysis well. Hemodynamically stable. Resting in bed. Vital signs are stable. General: No acute distress. HEENT: Head exam is unremarkable. LUNGS: No audible rhonchi or wheezes. HEART: Rate and Rhythm are regular. ABDOMEN: Nontender. EXTREMITITES: No edema. Objective - Vital Signs Vital signs: Vital Signs Temp 97.9 F 01/29/24 07:00 Pulse 62 01/29/24 07:00 Resp 16 01/29/24 07:00 BP 146/85 01/29/24 07:00 Pulse Ox 94 L 01/29/24 07:00 FiO2 Intake & Output 01/28/24 01/29/24 01/29/24 18:59 06:59 18:59 Intake Total 118 Output Total 300 Balance 118 -300 Intake: Oral 118 Output: Urine 300 Other: Voiding Method Diaper Diaper Diaper External Catheter External Catheter # Voids 2 0 # Bowel Movements 1 - Labs CBC & Chem 7: 01/29/24 06:31 01/29/24 06:31 Labs: Abnormal Lab Results - Last 24 Hours (Table) 01/28/24 01/28/24 01/29/24 Range/Units 08:18 08:18 06:31 WBC 4.15 L 3.18 L (4.50-10.00) X 10*3/uL RBC 3.52 L 3.59 L (4.40-5.60) X 10*6/uL Hgb 11.6 L 11.7 L (13.0-17.0) g/dL Hct 35.7 L 36.3 L (39.6-50.0) % MCV 101.4 H 101.1 H (80.0-97.0) FL MCH 33.0 H 32.6 H (27.0-32.0) pg RDW 14.9 H 14.7 H (11.5-14.5) % Plt Count 99 L 107 L (140-440) X 10*3/uL MPV 9.4 L (9.5-12.2) FL Neutrophils # 1.29 L (1.80-7.70) X 10*3/uL Eosinophils # 0.03 L (0.04-0.35) X 10*3/uL Chloride (96-109) mmol/L Anion Gap (4.00-12.00) mmol/L BUN (9.0-27.0) mg/dL Creatinine (0.6-1.5) mg/dL Est GFR (CKD-EPI) (>=60) BUN/Creatinine Ratio (12.00-20.00) Ratio Calcium (8.7-10.3) mg/dL Phosphorus 5.7 H (2.4-5.1) mg/dL ALT (10-49) U/L Total Protein (6.2-8.2) g/dL Albumin (3.8-4.9) g/dL Albumin/Globulin Ratio (1.60-3.17) Ratio 01/29/24 Range/Units 06:31 WBC (4.50-10.00) X 10*3/uL RBC (4.40-5.60) X 10*6/uL Hgb (13.0-17.0) g/dL Hct (39.6-50.0) % MCV (80.0-97.0) FL MCH (27.0-32.0) pg RDW (11.5-14.5) % Plt Count (140-440) X 10*3/uL MPV (9.5-12.2) FL Neutrophils # (1.80-7.70) X 10*3/uL Eosinophils # (0.04-0.35) X 10*3/uL Chloride 94 L (96-109) mmol/L Anion Gap 12.10 H (4.00-12.00) mmol/L BUN 68.4 H (9.0-27.0) mg/dL Creatinine 6.7 H (0.6-1.5) mg/dL Est GFR (CKD-EPI) 8 L (>=60) BUN/Creatinine Ratio 10.21 L (12.00-20.00) Ratio Calcium 8.5 L (8.7-10.3) mg/dL Phosphorus (2.4-5.1) mg/dL ALT <5 L (10-49) U/L Total Protein 5.6 L (6.2-8.2) g/dL Albumin 3.4 L (3.8-4.9) g/dL Albumin/Globulin Ratio 1.55 L (1.60-3.17) Ratio Assessment and Plan Plan: Assessment: 1. ESRD on HD MWF schedule. 2. Debility. 3. S/p fall last week. 4. Chronic hypotension maintained on midodrine as needed. 5. 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 Phosphorus level 5.7 dated January 28, 2024. 6. DM. Plan: Currently seen while undergoing hemodialysis. Subacute rehab upon discharge.
[2024-01-29 14:18] LABS: Glucose,Whole Blood 86 mg/dL (70-110)
[2024-01-30] MEDS: HYDROcodone/APAP 7.5-325MG 1 EACH TAB PO PRN (04:03)
--- NOTE | 2024-01-30 12:09 | P.PN ---
Subjective Patient is seen in follow-up for end-stage renal disease. He is maintained on hemodialysis on Saturday schedule. No problems with dialysis yesterday. Hemodynamically stable. Resting in bed. No active complaints. Vital signs are stable. General: No acute distress. HEENT: Head exam is unremarkable. LUNGS: No audible rhonchi or wheezes. HEART: Rate and Rhythm are regular. ABDOMEN: Nontender. EXTREMITITES: No edema. Objective - Vital Signs Vital signs: Vital Signs Temp 97.7 F 01/30/24 06:52 Pulse 56 L 01/30/24 06:52 Resp 18 01/30/24 06:52 BP 137/63 01/30/24 06:52 Pulse Ox 99 01/30/24 06:52 FiO2 Intake & Output 01/29/24 01/30/24 01/30/24 18:59 06:59 18:59 Intake Total 800 Output Total 2468 Balance -1668 Intake: Hemodialysis 800 Output: Hemodialysis 2468 Other: Voiding Method Diaper Diaper Diaper External Catheter External Catheter External Catheter - Labs CBC & Chem 7: 01/29/24 06:31 01/29/24 06:31 Assessment and Plan Plan: Assessment: 1. ESRD on HD MWF schedule. 2. Debility. 3. S/p fall last week. 4. Chronic hypotension maintained on midodrine as needed. 5. 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 Phosphorus level 5.7 dated January 28, 2024. 6. DM. Plan: Hemodialysis tomorrow. Subacute rehab upon discharge.
[2024-01-30] MEDS: LACTULOSE 20 GM/30 ML CUP PO PRN (12:17)
--- NOTE | 2024-01-30 13:07 | P.PN ---
Subjective Progress Note Date: 01/29/24 HISTORY OF PRESENT ILLNESS This is a 78 year old male patient with past medical history of hypertension, hyperlipidemia, hypothyroidism, diabetes mellitus type 2, end-stage renal diseas e on hemodialysis Saturday and Saturday, Parkinson's disease, bipolar disorder, patient was doing fine after he was admitted to [facility] for physical therapy rehabilitation last time he was in the hospital back in July 2023, he has been using a walker on a regular basis, patient did have a lot of adjustment in his home to accommodate his disabilities, apparently the patient has been falling at home because he loses his balance and he was seen and evaluated in my office he was placed on Tylenol No. 3 for pain control which made him extremely weak and encephalopathic so he was taken off of that and he was placed back on tramadol for to help his pain control without relief apparently the patient apparently the patient was seen in the emergency department about 4 days ago after he had fallen to his back that made him more symptomatic with left sided rib pain as well, at that time his pain got better in the emergency department he was sent home after he had multiple x-rays that they were all negative for acute fracture but did show evidence of significant spondylosis of the lumbar spine, patient at this time was not able to ambulate using even a walker so he was brought into the emergency department at [facility] today and he had a CT scan of the chest that did not show evidence of rib fractures it did show compressive atelectasis with small bilateral pleural effusion, patient eventually ended up getting pain management, the tried to ambulate the patient in the ER but the patient could not even stand up on his own, he fell down right away, the decision was made to keep the patient in the hospital with physical therapy evaluation, and try to get the patient into subacute rehabilitation as the patient is not able to to carry out activities of daily living, beside that the patient is living with a family member and they are not able to get him to the bathroom because of significant pain in gait dysfunction, and he had missed his dialysis 3 days ago and they were concerned about him missing the dialysis more often due to his pain management.. 01/27: Patient is sitting up in bed he just ate lunch, he is feeling better today, he denies any severe pain in the lumbar spine, he was ambulated to go to the bathroom with the help of 2 people in the walker, he continues to be somewhat weaker in both lower extremities, he is getting dialysis tomorrow morning, he has been tolerating baclofen 5 mg orally twice every day as well as [place] for pain control, will continue to work with physical therapy, patient will likely need to go for subacute rehabilitation at [facility]. 01/28: Patient will be getting hemodialysis today, patient was seen and evaluated by physical therapy, patient will likely need to be transferred to subacute rehabilitation for physical therapy and rehabilitation due to a balance issue due to his Parkinson as well as significant spondylolisthesis of the lumbar spine with significant spinal stenosis, continue current pain management at this time, continue muscle relaxer, patient is not a candidate for any surgical intervention I would believe that the patient would benefit from subacute rehabilitation at this point to avoid any complications such as hip fracture or even intracranial bleed from falling. REVIEW OF SYSTEMS Constitutional: No fever, no chills, no night sweats. No weight change. Reported weakness, fatigue. No daytime sleepiness. HEENT: No headache. No nasal drainage or congestion. No epistaxis. No sore throat. Lungs: No shortness of breath, cough, no sputum production. No wheezing. Cardiovascular: No chest pain, no lower extremity edema. No palpitations. No paroxysmal nocturnal dyspnea. No orthopnea. No lightheadedness or dizziness. No syncopal episodes. Abdominal: positive for abdominal pain. No nausea, vomiting. No diarrhea. positive for constipation. No bloody or tarry stools. positive for loss of appetite. Genitourinary: No dysuria, increased frequency, urgency. No urinary retention. Musculoskeletal: No myalgias. Reported muscle weakness, reported gait dysfunction with chronic shuffling gait secondary to Parkinson's, reported frequent falls. positive for back pain and neck pain. Integumentary: No wounds, no lesions. No rash or pruritus. positive for bruising. No change in hair or nails. Neurologic: No aphasia. No facial droop. No change in mentation. No head injury. No headache. No paralysis. No paresthesia. Psychiatric: Reported depression. No anxiety. Endocrine: No abnormal blood sugars. No weight change. No excessive sweating or thirst. No cold intolerance. PHYSICAL EXAMINATION Gen: This is a 78-year-old male. He is resting in bed appears to be fairly comfortable. HEENT: Head is atraumatic, normocephalic. Pupils equal, round. Sclerae is anicteric. NECK: Supple. No JVD. No lymphadenopathy. No thyromegaly. LUNGS: Clear to auscultation. No wheezes or rhonchi. No intercostal r etractions. HEART: Regular rate and rhythm. 2/6 systolic murmur at the left sternal border, no S3, no S4. ABDOMEN: Soft, non tender Bowel sounds are present. No masses.. EXTREMITIES: No pedal edema. No calf tenderness. Dorsalis pedis posterior bilaterally NEUROLOGICAL: Patient is awake, alert and oriented x2. Cranial nerves 2 through 12 are grossly intact. Deep tendon reflexes 2+ symmetrical, muscle power 3/5 in bilateral upper and lower extremities ASSESSMENT AND PLAN 1. Recurrent falls with acute on chronic back pain. we will start the patient on hydrocodone acetaminophen 7.5/325 mg orally every 8 hours as needed, I will start the patient on baclofen 5 mg orally twice every day, physical therapy and Occupational Therapy evaluation, trying to get the patient to [facility] for physical therapy and rehabilitation in the next 24 hours. 2. End-stage renal disease on Saturday and Saturday patient missed dialysis treatment. Patient did get hemodialysis yesterday he will get that tomorrow morning. 3. Parkinson's disease. Consult with neurology. Patient is currently on Sinemet 42314 milligrams 4 times daily. 4. Hypertension. Patient not currently on medications. No documented episodes of hypotension 5. Hyperlipidemia. Continue atorvastatin 10 mg at bedtime, fenofibrate 54 mg at bedtime. 6. Hypothyroidism. Continue levothyroxine 200 g daily . 7. Diabetes mellitus type 2. With recent A1c 7.0. Continue NovoLog scale before meals and at bedtime. 8. Bipolar disorder. Patient is on Depakote 1250 mg po qhs and we will continue with Lamictal 150 mg po daily and Lexparo 20 mg po daily 9. 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 Continue ferrous sulfate 325 mg daily. 10. DVT prophylaxis. Heparin subcu 5000 units every 12 hours. 11. GI prophylaxis. Pepcid 20 mg po daily 12. Orthostatic hypotension continue patient on midodrine 10 mg orally Saturday and Saturday prior to dialysis. 13. We will plan to go to [facility] on Saturday Objective - Vital Signs Vital signs: Vital Signs Temp 97.7 F 01/29/24 12:37 Pulse 66 01/29/24 12:37 Resp 18 01/29/24 12:37 BP 152/81 01/29/24 12:37 Pulse Ox 94 L 01/29/24 07:00 FiO2 Intake & Output 01/28/24 01/29/24 01/29/24 18:59 06:59 18:59 Intake Total 118 800 Output Total 300 2468 Balance 118 300 -1665 Intake: Oral 118 Hemodialysis 800 Output: Urine 300 Hemodialysis 2468 Other: Voiding Method Diaper Diaper Diaper External Catheter External Catheter # Voids 2 0 # Bowel Movements 1 - Labs CBC & Chem 7: 01/29/24 06:31 01/29/24 06:31 Labs: Abnormal Lab Results - Last 24 Hours (Table) 01/28/24 01/29/24 01/29/24 Range/Units 08:18 06:31 06:31 WBC 3.18 L (4.50-10.00) X 10*3/uL RBC 3.59 L (4.40-5.60) X 10*6/uL Hgb 11.7 L (13.0-17.0) g/dL Hct 36.3 L (39.6-50.0) % MCV 101.1 H (80.0-97.0) FL MCH 32.6 H (27.0-32.0) pg RDW 14.7 H (11.5-14.5) % Plt Count 107 L (140-440) X 10*3/uL MPV 9.4 L (9.5-12.2) FL Neutrophils # 1.29 L (1.80-7.70) X 10*3/uL Eosinophils # 0.03 L (0.04-0.35) X 10*3/uL Chloride 94 L (96-109) mmol/L Anion Gap 12.10 H (4.00-12.00) mmol/L BUN 68.4 H (9.0-27.0) mg/dL Creatinine 6.7 H (0.6-1.5) mg/dL Est GFR (CKD-EPI) 8 L (>=60) BUN/Creatinine Ratio 10.21 L (12.00-20.00) Ratio Calcium 8.5 L (8.7-10.3) mg/dL Phosphorus 5.7 H (2.4-5.1) mg/dL ALT <5 L (10-49) U/L Total Protein 5.6 L (6.2-8.2) g/dL Albumin 3.4 L (3.8-4.9) g/dL Albumin/Globulin Ratio 1.55 L (1.60-3.17) Ratio
--- NOTE | 2024-01-30 13:08 | P.PN ---
Subjective Progress Note Date: 01/30/24 HISTORY OF PRESENT ILLNESS This is a 78 year old male patient with past medical history of hypertension, hyperlipidemia, hypothyroidism, diabetes mellitus type 2, end-stage renal diseas e on hemodialysis Saturday and Saturday, Parkinson's disease, bipolar disorder, patient was doing fine after he was admitted to [facility] for physical therapy rehabilitation last time he was in the hospital back in July 2023, he has been using a walker on a regular basis, patient did have a lot of adjustment in his home to accommodate his disabilities, apparently the patient has been falling at home because he loses his balance and he was seen and evaluated in my office he was placed on Tylenol No. 3 for pain control which made him extremely weak and encephalopathic so he was taken off of that and he was placed back on tramadol for to help his pain control without relief apparently the patient apparently the patient was seen in the emergency department about 4 days ago after he had fallen to his back that made him more symptomatic with left sided rib pain as well, at that time his pain got better in the emergency department he was sent home after he had multiple x-rays that they were all negative for acute fracture but did show evidence of significant spondylosis of the lumbar spine, patient at this time was not able to ambulate using even a walker so he was brought into the emergency department at [facility] today and he had a CT scan of the chest that did not show evidence of rib fractures it did show compressive atelectasis with small bilateral pleural effusion, patient eventually ended up getting pain management, the tried to ambulate the patient in the ER but the patient could not even stand up on his own, he fell down right away, the decision was made to keep the patient in the hospital with physical therapy evaluation, and try to get the patient into subacute rehabilitation as the patient is not able to to carry out activities of daily living, beside that the patient is living with a family member and they are not able to get him to the bathroom because of significant pain in gait dysfunction, and he had missed his dialysis 3 days ago and they were concerned about him missing the dialysis more often due to his pain management.. 01/27: Patient is sitting up in bed he just ate lunch, he is feeling better today, he denies any severe pain in the lumbar spine, he was ambulated to go to the bathroom with the help of 2 people in the walker, he continues to be somewhat weaker in both lower extremities, he is getting dialysis tomorrow morning, he has been tolerating baclofen 5 mg orally twice every day as well as [place] for pain control, will continue to work with physical therapy, patient will likely need to go for subacute rehabilitation at [facility]. 01/28: Patient will be getting hemodialysis today, patient was seen and evaluated by physical therapy, patient will likely need to be transferred to subacute rehabilitation for physical therapy and rehabilitation due to a balance issue due to his Parkinson as well as significant spondylolisthesis of the lumbar spine with significant spinal stenosis, continue current pain management at this time, continue muscle relaxer, patient is not a candidate for any surgical intervention I would believe that the patient would benefit from subacute rehabilitation at this point to avoid any complications such as hip fracture or even intracranial bleed from falling. 01/29: Patient is sitting up in bed is feeling a lot better today, he continues to use a walker and two-person assist to go to the bathroom, his pain is better in the lower back however is feeling the pain in both hips, he denies any chest pain, or shortness of breath, he scheduled to go for dialysis tomorrow morning, he just had a bowel movement, will continue with current bowel regimen, patient will benefit from subacute rehabilitation at [facility] hopefully will plan for this after dialysis tomorrow morning. REVIEW OF SYSTEMS Constitutional: No fever, no chills, no night sweats. No weight change. Reported weakness, fatigue. No daytime sleepiness. HEENT: No headache. No nasal drainage or congestion. No epistaxis. No sore throat. Lungs: No shortness of breath, cough, no sputum production. No wheezing. Cardiovascular: No chest pain, no lower extremity edema. No palpitations. No paroxysmal nocturnal dyspnea. No orthopnea. No lightheadedness or dizziness. No syncopal episodes. Abdominal: positive for abdominal pain. No nausea, vomiting. No diarrhea. positive for constipation. No bloody or tarry stools. positive for loss of appetite. Genitourinary: No dysuria, increased frequency, urgency. No urinary retention. Musculoskeletal: No myalgias. Reported muscle weakness, reported gait dysfunction with chronic shuffling gait secondary to Parkinson's, reported frequent falls. positive for back pain and neck pain. Integumentary: No wounds, no lesions. No rash or pruritus. positive for bruising. No change in hair or nails. Neurologic: No aphasia. No facial droop. No change in mentation. No head injury. No headache. No paralysis. No paresthesia. Psychiatric: Reported depression. No anxiety. Endocrine: No abnormal blood sugars. No weight change. No excessive sweating or thirst. No cold intolerance. PHYSICAL EXAMINATION Gen: This is a 78-year-old male. He is resting in bed appears to be fairly comfortable. HEENT: Head is atraumatic, normocephalic. Pupils equal, round. Sclerae is anicteric. NECK: Supple. No JVD. No lymphadenopathy. No thyromegaly. LUNGS: Clear to auscultation. No wheezes or rhonchi. No intercostal retractions. HEART: Regular rate and rhythm. 2/6 systolic murmur at the left sternal border, no S3, no S4. ABDOMEN: Soft, non tender Bowel sounds are present. No masses.. EXTREMITIES: No pedal edema. No calf tenderness. Dorsalis pedis posterior bilaterally NEUROLOGICAL: Patient is awake, alert and oriented x2. Cranial nerves 2 through 12 are grossly intact. Deep tendon reflexes 2+ symmetrical, muscle power 3/5 in bilateral upper and lower extremities ASSESSMENT AND PLAN 1. Recurrent falls with acute on chronic back pain. we will start the patient on hydrocodone acetaminophen 7.5/325 mg orally every 8 hours as needed, I will start the patient on baclofen 5 mg orally twice every day, physical therapy and Occupational Therapy evaluation, trying to get the patient to [facility] for physical therapy and rehabilitation in the next 24 hours. 2. End-stage renal disease on Saturday and Saturday patient missed dialysis treatment. Patient did get hemodialysis yesterday he will get that tomorrow morning. 3. Parkinson's disease. Consult with neurology. Patient is currently on Sinemet 08595 milligrams 4 times daily. 4. Hypertension. Patient not currently on medications. No documented episodes of hypotension 5. Hyperlipidemia. Continue atorvastatin 10 mg at bedtime, fenofibrate 54 mg at bedtime. 6. Hypothyroidism. Continue levothyroxine 200 g daily . 7. Diabetes mellitus type 2. With recent A1c 7.0. Continue NovoLog scale before meals and at bedtime. 8. Bipolar disorder. Patient is on Depakote 1250 mg po qhs and we will continue with Lamictal 150 mg po daily and Lexparo 20 mg po daily 9. 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 Continue ferrous sulfate 325 mg daily. 10. DVT prophylaxis. Heparin subcu 5000 units every 12 hours. 11. GI prophylaxis. Pepcid 20 mg po daily 12. Orthostatic hypotension continue patient on midodrine 10 mg orally Saturday and Saturday prior to dialysis. 13. We will plan to go to [facility] on Saturday 14. Continue with the physical therapy evaluation, the plan is to send him to [facility] tomorrow morning after dialysis. 15. Patient is full code. Objective - Vital Signs Vital signs: Vital Signs Temp 97.7 F 01/30/24 06:52 Pulse 56 L 01/30/24 06:52 Resp 18 01/30/24 06:52 BP 137/63 01/30/24 06:52 Pulse Ox 99 01/30/24 06:52 FiO2 Intake & Output 01/29/24 01/30/24 01/30/24 18:59 06:59 18:59 Intake Total 800 Output Total 2468 Balance -1668 Intake: Hemodialysis 800 Output: Hemodialysis 2468 Other: Voiding Method Diaper Diaper Diaper External Catheter External Catheter External Catheter - Labs CBC & Chem 7: 01/29/24 06:31 01/29/24 06:31
[2024-01-31 08:06] LABS: Basophils % (A) 1 %; Eosinophils # (A) 0.1 k/uL (0-0.7); Eosinophils % (A) 2 %; HCT 34.7 % (39.0-53.0); HGB 11.2 gm/dL (13.0-17.5); Lymphocytes % (A) 42 %; MCHC 32.2 g/dL (31.0-37.0); MCV 102.3 fL (80.0-100.0); Macrocytosis Slight; Monocytes # (A) 0.5 k/uL (0-1.0); Monocytes % (A) 10 %; Neutrophils # (A) 2.1 k/uL (1.3-7.7); Neutrophils % (A) 44 %; Platelet Count 103 k/uL (150-450); RBC 3.39 m/uL (4.30-5.90); RDW 14.5 % (11.5-15.5); WBC 4.7 k/uL (3.8-10.6)
[2024-01-31 08:24] LABS: ALT <6 U/L (4-49); AST 23 U/L (17-59); African American GFR (CKD) 9 (>60 ml/min/1.73 sqM); Albumin 2.7 g/dL (3.5-5.0); Alkaline Phosphatase 72 U/L (38-126); Anion Gap 10 mmol/L; Blood Urea Nitrogen 50 mg/dL (9-20); Calcium 8.5 mg/dL (8.4-10.2); Carbon Dioxide 30 mmol/L (22-30); Chloride 93 mmol/L (98-107); Globulin 2.6 g/dL; Glucose 85 mg/dL (74-99); Non-African American GFR(CKD) 8 (>60 ml/min/1.73 sqM); Potassium 4.1 mmol/L (3.5-5.1); Sodium 133 mmol/L (137-145); Total Bilirubin 0.5 mg/dL (0.2-1.3); Total Protein 5.3 g/dL (6.3-8.2)
[2024-01-31 12:15] VITALS: RESP 18
--- NOTE | 2024-01-31 12:30 | P.DS ---
Providers Date of admission: 01/28/24 08:47 Expected date of discharge: 01/31/24 Attending physician: Kimberly Gerardo Consults: 01/27/24 12:20 Consult Physician Urgent Consulting Provider: Tai Coombs Consult Reason/Comments: ESRD on dialysis, missed dialysis Do you want consulting provider notified?: Yes Primary care physician: Kimberly Gerardo Hospital Course: HISTORY OF PRESENT ILLNESS This is a 78 year old male patient with past medical history of hypertension, hyperlipidemia, hypothyroidism, diabetes mellitus type 2, end-stage renal disease on hemodialysis Saturday and Saturday, Parkinson's disease, bipolar disorder, patient was doing fine after he was admitted to [facility] for physical therapy rehabilitation last time he was in the hospital back in July 2023, he has been using a walker on a regular basis, patient did have a lot of adjustment in his home to accommodate his disabilities, apparently the patient has been falling at home because he loses his balance and he was seen and evaluated in my office he was placed on Tylenol No. 3 for pain control which made him extremely weak and encephalopathic so he was taken off of that and he was placed back on tramadol for to help his pain control without relief apparently the patient apparently the patient was seen in the emergency department about 4 days ago after he had fallen to his back that made him more symptomatic with left sided rib pain as well, at that time his pain got better in the emergency department he was sent home after he had multiple x-rays that they were all negative for acute fracture but did show evidence of significant spondylosis of the lumbar spine, patient at this time was not able to ambulate using even a walker so he was brought into the emergency department at [facility] today and he had a CT scan of the chest that did not show evidence of rib fractures it did show compressive atelectasis with small bilateral pleural effusion, patient eventually ended up getting pain management, the tried to ambulate the patient in the ER but the patient could not even stand up on his own, he fell down right away, the decision was made to keep the patient in the hospital with physical therapy evaluation, and try to get the patient into subacute rehabilitation as the patient is not able to to carry out activities of daily living, beside that the patient is living with a family member and they are not able to get him to the bathroom because of significant pain in gait dysfunction, and he had missed his dialysis 3 days ago and they were concerned about him missing the dialysis more often due to his pain management.. 01/27: Patient is sitting up in bed he just ate lunch, he is feeling better today, he denies any severe pain in the lumbar spine, he was ambulated to go to the bathroom with the help of 2 people in the walker, he continues to be somewhat weaker in both lower extremities, he is getting dialysis tomorrow morning, he has been tolerating baclofen 5 mg orally twice every day as well as [place] for pain control, will continue to work with physical therapy, patient will likely need to go for subacute rehabilitation at [facility]. 01/28: Patient will be getting hemodialysis today, patient was seen and evaluated by physical therapy, patient will likely need to be transferred to subacute rehabilitation for physical therapy and rehabilitation due to a balance issue due to his Parkinson as well as significant spondylolisthesis of the lumbar spine with significant spinal stenosis, continue current pain management at this time, continue muscle relaxer, patient is not a candidate for any surgical intervention I would believe that the patient would benefit from subacute rehabilitation at this point to avoid any complications such as hip fracture or even intracranial bleed from falling. 01/29: Patient is sitting up in bed is feeling a lot better today, he continues to use a walker and two-person assist to go to the bathroom, his pain is better in the lower back however is feeling the pain in both hips, he denies any chest pain, or shortness of breath, he scheduled to go for dialysis tomorrow morning, he just had a bowel movement, will continue with current bowel regimen, patient will benefit from subacute rehabilitation at [facility] hopefully will plan for this after dialysis tomorrow morning. 01/30: Patient received hemodialysis this morning. Patient states he is feeling better today however is receiving [place] every 6 hours for generalized pain. Patient is clear for discharge to [facility] for rehab. Discharge diagnoses: 1. Recurrent falls with acute on chronic back pain. 2. End-stage renal disease on Saturday and Saturday patient missed dialysis treatment. 3. Parkinson's disease. 4. Hypertension. 5. Hyperlipidemia. 6. Hypothyroidism. 7. Diabetes mellitus type 2. 8. Bipolar disorder. 9. 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 10. Orthostatic hypotension . Plan - Discharge Summary New Discharge Prescriptions: New Baclofen [Lioresal] 5 mg PO BID PRN tab PRN Reason: Muscle Spasm Continue Levothyroxine Sodium [Synthroid] 200 mcg PO AC-BRKFST Escitalopram [Lexapro] 20 mg PO DAILY Fenofibrate 54 mg PO W/SUPPER Divalproex Sodium [Depakote] 1,000 mg PO W/SUPPER Carbidopa-Levodopa 25-250 mg [Sinemet 25-250 mg] 1 tab PO QID Cyanocobalamin [Vitamin B-12] 1,000 mcg PO DAILY tab Folic Acid 0.4 mg PO Q2D Ferrous Sulfate [Iron (65 MG Elemental)] 325 mg PO DAILY Calcium Acetate 667mg Caps 1,334 mg PO AC-TID HYDROcodone/APAP 7.5-325MG [[place] 7.5-325] 1 tab PO Q6HR PRN #12 tab PRN Reason: Pain lamoTRIgine [LaMICtal] 150 mg PO W/SUPPER Divalproex [Depakote] 250 mg PO W/SUPPER Lovastatin [Mevacor] 40 mg PO W/SUPPER Midodrine HCl [ProAmatine] 10 mg PO MOWEFR PRN PRN Reason: before dialysis Mirtazapine 7.5 mg PO HS Lactulose 20 gm PO DAILY PRN PRN Reason: Constipation Folic Acid 0.8 mg PO Q2D Omeprazole 20 mg PO DAILY Lidocaine-Prilocaine Cream [Emla Cream 2.5%/2.5%] 1 applic TOPICAL MOWEFR PRN PRN Reason: AVF access Discharge Medication List Levothyroxine Sodium [Synthroid] 200 mcg PO AC-BRKFST 01/29/16 [History] Escitalopram [Lexapro] 20 mg PO DAILY 11/06/19 [History] Fenofibrate 54 mg PO W/SUPPER 02/19/22 [History] lamoTRIgine [LaMICtal] 150 mg PO W/SUPPER 01/30/23 [History] Carbidopa-Levodopa 25-250 mg [Sinemet 25-250 mg] 1 tab PO QID 07/09/23 [History] Divalproex Sodium [Depakote] 1,000 mg PO W/SUPPER 07/09/23 [History] Divalproex [Depakote] 250 mg PO W/SUPPER 07/09/23 [History] Cyanocobalamin [Vitamin B-12] 1,000 mcg PO DAILY tab 07/15/23 [Rx] Folic Acid 0.4 mg PO Q2D 11/06/23 [History] Lovastatin [Mevacor] 40 mg PO W/SUPPER 11/06/23 [History] Midodrine HCl [ProAmatine] 10 mg PO MOWEFR PRN 11/06/23 [History] Mirtazapine 7.5 mg PO HS 11/06/23 [History] Ferrous Sulfate [Iron (65 MG Elemental)] 325 mg PO DAILY 11/29/23 [History] Calcium Acetate 667mg Caps 1,334 mg PO AC-TID 01/27/24 [History] Folic Acid 0.8 mg PO Q2D 01/27/24 [History] Lactulose 20 gm PO DAILY PRN 01/27/24 [History] Lidocaine-Prilocaine Cream [Emla Cream 2.5%/2.5%] 1 applic TOPICAL MOWEFR PRN 01/27/24 [History] Omeprazole 20 mg PO DAILY 01/27/24 [History] Baclofen [Lioresal] 5 mg PO BID PRN tab 01/31/24 [Rx] HYDROcodone/APAP 7.5-325MG [[place] 7.5-325] 1 tab PO Q6HR PRN #12 tab 01/31/24 [Rx] Follow up Appointment(s)/Referral(s): Kimberly Gerardo MD [Primary Care Provider] - 1-2 days [facility] [NON-STAFF] - As Needed ([id number] at [id number]) Discharge Disposition: TRANSFER TO SNF/ECF
--- NOTE | 2024-01-31 13:17 | P.PN ---
Subjective Patient is seen in follow-up for end-stage renal disease. He is maintained on hemodialysis on Saturday schedule. Tolerating dialysis well. Hemodynamically stable. Resting in bed. No active complaints. Vital signs are stable. General: No acute distress. HEENT: Head exam is unremarkable. LUNGS: No audible rhonchi or wheezes. HEART: Rate and Rhythm are regular. ABDOMEN: Nontender. EXTREMITITES: No edema. Objective - Vital Signs Vital signs: Vital Signs Temp 98.4 F 01/31/24 11:50 Pulse 74 01/31/24 11:50 Resp 18 01/31/24 11:50 BP 112/72 01/31/24 11:50 Pulse Ox 97 01/31/24 07:10 FiO2 Intake & Output 01/30/24 01/31/24 01/31/24 18:59 06:59 18:59 Intake Total 400 Output Total 500 2000 Balance -500 -1600 Intake: Hemodialysis 400 Output: Urine 500 Hemodialysis 2000 Other: Voiding Method Diaper Diaper Diaper External Catheter External Catheter External Catheter - Labs CBC & Chem 7: 01/31/24 06:11 01/31/24 06:11 Labs: Abnormal Lab Results - Last 24 Hours (Table) 01/31/24 01/31/24 Range/Units 06:11 06:11 RBC 3.39 L (4.30-5.90) m/uL Hgb 11.2 L (13.0-17.5) gm/dL Hct 34.7 L (39.0-53.0) % MCV 102.3 H (80.0-100.0) fL Plt Count 103 L (150-450) k/uL Sodium 133 L (137-145) mmol/L Chloride 93 L (98-107) mmol/L BUN 50 H (9-20) mg/dL Creatinine 6.44 H (0.66-1.25) mg/dL Total Protein 5.3 L (6.3-8.2) g/dL Albumin 2.7 L (3.5-5.0) g/dL Assessment and Plan Plan: Assessment: 1. ESRD on HD MWF schedule. 2. Debility. 3. S/p fall last week. 4. Chronic hypotension maintained on midodrine as needed. 5. 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 Phosphorus level 5.7 dated January 28, 2024. 6. DM. Plan: Currently seen while undergoing hemodialysis. Next treatment on Saturday. Subacute rehab upon discharge. Potential discharge today.
[2024-01-31 14:43] VITALS: BP 144/94; PULSE 73
[2024-01-31 15:19] VITALS: TEMP 97.8
== END 2024-01-31 17:08 | DRG 551 ==
LOC: EC 05:47 → 6NMEDSUR 13:23 → OBSVTOIN 01-28 08:47
PROVIDERS: ADMIT Internal Medicine; ATTEND Internal Medicine
PROC: 5A1D70Z Performance of Urinary Filtration, Intermittent, Less than 6 Hours Per Day (ICD-10-PCS; principal; 2024-01-29)
DX: M47.896 Other spondylosis, lumbar region (principal); N18.6 End stage renal disease; J98.11 Atelectasis; I12.0 Hypertensive chronic kidney disease with stage 5 chronic kidney disease or end stage renal disease; R29.6 Repeated falls; F31.9 Bipolar disorder, unspecified; F41.9 Anxiety disorder, unspecified; G20.A1 Parkinson's disease without dyskinesia, without mention of fluctuations; R53.81 Other malaise; E03.9 Hypothyroidism, unspecified; G89.29 Other chronic pain; I95.1 Orthostatic hypotension; S20.212A Contusion of left front wall of thorax, initial encounter; D63.1 Anemia in chronic kidney disease; W19.XXXA Unspecified fall, initial encounter; Z99.2 Dependence on renal dialysis; Z79.890 Hormone replacement therapy; E78.5 Hyperlipidemia, unspecified; E11.22 Type 2 diabetes mellitus with diabetic chronic kidney disease; H91.90 Unspecified hearing loss, unspecified ear; Z79.899 Other long term (current) drug therapy; Z82.49 Family history of ischemic heart disease and other diseases of the circulatory system; Z98.42 Cataract extraction status, left eye; M89.8X8 Other specified disorders of bone, other site; M19.90 Unspecified osteoarthritis, unspecified site
CPT/HCPCS: 36415; 71250; 80053; 81001; 84100; 85025; 87636; 90935; 96372; 96374; 96375; 99285

== ENCOUNTER 2024-03-25 20:10 | Inpatient (IN) | payer MEDICARE, BC ==
--- NOTE | 2024-03-25 20:47 | ED ---
General Adult HPI - General Chief complaint: Fall Stated complaint: Fall Time Seen by Provider: 03/25/24 20:26 Source: patient, family Mode of arrival: ambulatory Limitations: no limitations - History of Present Illness Initial comments: Dictation was produced using [employer] dictation software. please excuse any grammatical, word or spelling errors. Chief Complaint: 78-year-old male presents emergency department with fall History of Present Illness: 78-year-old male he states that he tripped over his own feet landed on his right knee and right hip. Patient was able to get up. Apparently he had missed dialysis appointments the previous 2 visits. Patient denies any head injury. Denies any anticoagulation use. The ROS documented in this emergency department record has been reviewed and confirmed by me. Those systems with pertinent positive or negative responses have been documented in the HPI. All other systems are other negative and/or noncontributory. - Related Data Home Medications Medication Instructions Recorded Confirmed Levothyroxine Sodium [Synthroid] 200 mcg PO AC-BRKFST 01/29/16 01/27/24 Escitalopram [Lexapro] 20 mg PO DAILY 11/06/19 01/27/24 Fenofibrate 54 mg PO W/SUPPER 02/19/22 01/27/24 lamoTRIgine [LaMICtal] 150 mg PO W/SUPPER 01/30/23 01/27/24 Carbidopa-Levodopa 25-250 mg 1 tab PO QID 07/09/23 01/27/24 [Sinemet 25-250 mg] Divalproex Sodium [Depakote] 1,000 mg PO W/SUPPER 07/09/23 01/27/24 Divalproex [Depakote] 250 mg PO W/SUPPER 07/09/23 01/27/24 Folic Acid 0.4 mg PO Q2D 11/06/23 01/27/24 Lovastatin [Mevacor] 40 mg PO W/SUPPER 11/06/23 01/27/24 Midodrine HCl [ProAmatine] 10 mg PO MOWEFR PRN 11/06/23 01/27/24 Mirtazapine 7.5 mg PO HS 11/06/23 01/27/24 Ferrous Sulfate [Iron (65 MG 325 mg PO DAILY 11/29/23 01/27/24 Elemental)] Calcium Acetate 667mg Caps 1,334 mg PO AC-TID 01/27/24 01/27/24 Folic Acid 0.8 mg PO Q2D 01/27/24 01/27/24 Lactulose 20 gm PO DAILY PRN 01/27/24 01/27/24 Lidocaine-Prilocaine Cream [Emla 1 applic TOPICAL MOWEFR PRN 01/27/24 01/27/24 Cream 2.5%/2.5%] Omeprazole 20 mg PO DAILY 01/27/24 01/27/24 Previous Rx's Medication Instructions Recorded Cyanocobalamin [Vitamin B-12] 1,000 mcg PO DAILY tab 07/15/23 Baclofen [Lioresal] 5 mg PO BID PRN tab 01/31/24 HYDROcodone/APAP 7.5-325MG [[place] 1 tab PO Q6HR PRN #12 tab 01/31/24 7.5-325] Allergies Allergy/AdvReac Type Severity Reaction Status Date / Time No Known Allergies Allergy Verified 01/27/24 13:57 Review of Systems ROS Statement: Those systems with pertinent positive or pertinent negative responses have been documented in the HPI. ROS Other: All systems not noted in ROS Statement are negative. Past Medical History Past Medical History: Diabetes Mellitus, Hearing Disorder / Deafness, Hyperlipidemia, Osteoarthritis (OA), Renal Disease, Sleep Apnea/CPAP/BIPAP, Thyroid Disorder Additional Past Medical History / Comment(s): Heart murmer, Parkinson's, CPAP use, hard of hearing. dailysis MWF , right arm fistula, History of Any Multi-Drug Resistant Organisms: None Reported Past Surgical History: Orthopedic Surgery, Tonsillectomy Additional Past Surgical History / Comment(s): Bilateral knee surgery, left foot bone spur, right cataract removed, left shoulder arthroscopy, peritoneal dialysis catheter placed now removed. fistula placement for dialysis Past Anesthesia/Blood Transfusion Reactions: No Reported Reaction Additional Past Anesthesia/Blood Transfusion Reaction / Comment(s): slow to wake and glucose tends to drop Past Psychological History: Anxiety, Bipolar, Depression Smoking Status: Former smoker Past Alcohol Use History: None Reported Past Drug Use History: None Reported - Past Family History Father Family Medical History: Cancer Mother Additional Family Medical History / Comment(s): Mother at age 74 from heart failure. Brother(s) Additional Family Medical History / Comment(s): Patient has one brother and one sister both have diabetes. Patient's 3 children with no major medical problems. General Exam - General Exam Comments Initial Comments: PHYSICAL EXAM: General Impression: Alert and oriented x3, not in acute distress HEENT: Normocephalic atraumatic, extra-ocular movements intact, pupils equal and reactive to light bilaterally, mucous membranes moist. Cardiovascular: Heart regular rate and rhythm Chest: Able to complete full sentences, no retractions, no tachypnea Abdomen: abdomen soft, non-tender, non-distended, no organomegaly Musculoskeletal: Pulses present and equal in all extremities, no peripheral edema Motor: no focal deficits noted Neurological: CN II-XII grossly intact, no focal motor or sensory deficits noted Skin: Intact with no visualized rashes Psych: Normal affect and mood Limitations: no limitations Course Vital Signs 03/25/24 20:19 Temperature 98.3 F Pulse Rate 67 Respiratory 19 Rate Blood Pressure 120/66 O2 Sat by Pulse 99 Oximetry EKG Findings - EKG Comments: EKG Findings:: My EKG interpretation: Ventricular rate 62, sinus rhythm,. 182, cures 89, QTc 422. No TN prolongation, no QTC prolongation, no ST or T-wave changes noted. EKG compared to November 06, 2023 showing no changes. Overall, this EKG is unremarkable Medical Decision Making - Medical Decision Making Was pt. sent in by a medical professional or institution ([facility] Richard, SPOUT TENDER, urgent care, hospital, or detention...) When possible be specific @ -No Did you speak to anyone other than the patient for history (EMS, parent, family, police, friend...)? What history was obtained from this source @ -Some history obtained from son at the bedside Did you review nursing and triage notes (agree or disagree)? Why? @ -I reviewed and agree with nursing and triage notes Were old charts reviewed (outside hosp., previous admission, EMS record, old EKG, old radiological studies, urgent care reports/EKG's, detention records)? Report findings @ -No old charts were reviewed Differential Diagnosis (chest pain, altered mental status, abdominal pain women, abdominal pain men, vaginal bleeding, musculoskeletal, weakness, fever, dyspnea, syncope, headache, dizziness, GI bleed, back pain, seizure, CVA, palpatations, mental health)? @ -Differential Weakness: Hypoglycemia, shock, sepsis, hyponatremia, anemia, infection, OR, ETOH, adverse medicine reaction, overdose, stroke, this is not meant to be an all-inclusive list. EKG interpreted by me (3pts min.). @ -As above X-rays interpreted by me (1pt min.). @ -X-ray of the knee and hip shows no acute processes CT interpreted by me (1pt min.). @ -None done U/S interpreted by me (1pt. min.). @ -None done What testing was considered but not performed or refused? (CT, X-rays, U/S, labs)? Why? @ -None What meds were considered but not given or refused? Why? @ -None Did you discuss the management of the patient with other professionals (professionals i.e. , PA, SPOUT TENDER, lab, RT, psych nurse, director social service, automotive sales executive, teacher, commissioned fire officer, manager case management)? Give summary @ -Case discussed with hospitalist for admission Was smoking cessation discussed for >3mins.? @ -No Was critical care preformed (if so, how long)? @ -No Were there social determinants of health that impacted care today? How? (Homelessness, low income, unemployed, alcoholism, drug addiction, transportation, low edu. Level, literacy, decrease access to med. care, assisted, rehab)? @ -No Was there de-escalation of care discussed even if they declined (Discuss DNR or withdrawal of care, Hospice)? DNR status @ -No What co-morbidities impacted this encounter? (DM, HTN, Smoking, COPD, CAD, Cancer, CVA, ARF, Chemo, Hep., AIDS, mental health diagnosis, sleep apnea, morbid obesity)? @ -None Was patient admitted / discharged? Hospital course, mention meds given and route, prescriptions, significant lab abnormalities, going to OR and other pertinent info. @ -78-year-old male presents emergency department after trip and fall. He hurt his knee and his hip. X-rays are negative for any acute processes. Patient states that he is unable to stand up due to the pain. Patient lives at home by himself he does not have anyone to help care for him. Son and patient would prefer that he be admitted to the hospital. Patient be admitted with consultation to nephrology, orthopedic surgery and social work. Undiagnosed new problem with uncertain prognosis? @ -No Drug Therapy requiring intensive monitoring for toxicity (Heparin, Nitro, Insulin, Cardizem)? @ -No Were any procedures done? @ -No Diagnosis/symptom? Acute, or Chronic, or Acute on Chronic? Uncomplicated (without systemic symptoms) or Complicated (systemic symptoms)? @ -Gravely disabled Side effects of treatment? @ -No Exacerbation, Progression, or Severe Exacerbation? @ -No Poses a threat to life or bodily function? How? (Chest pain, USA, OR, pneumonia, PE, COPD, DKA, ARF, appy, cholecystitis, CVA, Diverticulitis, Homicidal, Suicidal, threat to staff... and all critical care pts) @ -yes - Lab Data Result diagrams: 03/25/24 20:42 03/25/24 20:42 Lab Results 03/25/24 03/25/24 Range/Units 20:42 20:42 WBC 4.4 (3.8-10.6) k/uL RBC 3.71 L (4.30-5.90) m/uL Hgb 12.0 L (13.0-17.5) gm/dL Hct 37.2 L (39.0-53.0) % MCV 100.2 H (80.0-100.0) fL MCH 32.5 (25.0-35.0) pg MCHC 32.4 (31.0-37.0) g/dL RDW 15.0 (11.5-15.5) % Plt Count 125 L (150-450) k/uL MPV 8.2 Neutrophils % 63 % Lymphocytes % 25 % Monocytes % 9 % Eosinophils % 1 % Basophils % 1 % Neutrophils # 2.8 (1.3-7.7) k/uL Lymphocytes # 1.1 (1.0-4.8) k/uL Monocytes # 0.4 (0-1.0) k/uL Eosinophils # 0.1 (0-0.7) k/uL Basophils # 0.0 (0-0.2) k/uL Macrocytosis Slight Sodium 135 L (137-145) mmol/L Potassium 4.6 (3.5-5.1) mmol/L Chloride 101 (98-107) mmol/L Carbon Dioxide 18 L (22-30) mmol/L Anion Gap 16 mmol/L BUN 130 H* (9-20) mg/dL Creatinine 7.59 H* (0.66-1.25) mg/dL Est GFR (CKD-EPI)AfAm 7 (>60 ml/min/1.73 sqM) Est GFR (CKD-EPI)NonAf 6 (>60 ml/min/1.73 sqM) Glucose 122 H (74-99) mg/dL Calcium 8.6 (8.4-10.2) mg/dL Magnesium 2.5 H (1.6-2.3) mg/dL Disposition Clinical Impression: Gravely disabled Disposition: ADMITTED IP TO THIS HOSP Condition: Fair Referrals: Kimberly Gerardo MD [Primary Care Provider] - 1-2 days Decision Time: 22:22
[2024-03-25 21:17] LABS: African American GFR (CKD) 7 (>60 ml/min/1.73 sqM); Anion Gap 16 mmol/L; Calcium 8.6 mg/dL (8.4-10.2); Carbon Dioxide 18 mmol/L (22-30); Chloride 101 mmol/L (98-107); Glucose 122 mg/dL (74-99); Magnesium 2.5 mg/dL (1.6-2.3); Non-African American GFR(CKD) 6 (>60 ml/min/1.73 sqM); Potassium 4.6 mmol/L (3.5-5.1); Sodium 135 mmol/L (137-145)
[2024-03-25 21:19] LABS: Basophils % (A) 1 %; Eosinophils # (A) 0.1 k/uL (0-0.7); Eosinophils % (A) 1 %; HCT 37.2 % (39.0-53.0); Lymphocytes # (A) 1.1 k/uL (1.0-4.8); Lymphocytes % (A) 25 %; MCH 32.5 pg (25.0-35.0); MCHC 32.4 g/dL (31.0-37.0); MCV 100.2 fL (80.0-100.0); Macrocytosis Slight; Mean Platelet Volume 8.2; Monocytes # (A) 0.4 k/uL (0-1.0); Monocytes % (A) 9 %; Neutrophils # (A) 2.8 k/uL (1.3-7.7); Neutrophils % (A) 63 %; Platelet Count 125 k/uL (150-450); RBC 3.71 m/uL (4.30-5.90); WBC 4.4 k/uL (3.8-10.6)
[2024-03-25 21:30] LABS: Blood Urea Nitrogen 130 mg/dL (9-20)
--- NOTE | 2024-03-25 22:11 | XR ---
EXAMINATION TYPE: XR Hip RT and AP Pelvis DATE OF EXAM: 03/25/2024 COMPARISON: 06/21/2023 HISTORY: Fall, pain right hip TECHNIQUE: AP pelvis FINDINGS: Femoral heads articulate with the acetabulum. Symphysis pubis and sacroiliac joints are nor mal. Normal bowel gas is present. IMPRESSION: 1. No acute osseous abnormality post trauma.
--- NOTE | 2024-03-25 22:11 | XR ---
EXAMINATION TYPE: XR knee limited RT DATE OF EXAM: 03/25/2024 COMPARISON: 11/26/2011 HISTORY: Fall TECHNIQUE: 2 view right knee FINDINGS: There is narrowing of the medial lateral compartment joint spaces. No joint effusion is harmeet dent. No acute fracture or dislocation evident. IMPRESSION: 1. No acute osseous abnormality to the right knee
[2024-03-25] MEDS ORDERED: NALOXONE 0.4 MG/ML 1 ML VIAL IV PRN (22:20)
[2024-03-26] MEDS ORDERED: LACTULOSE 20 GM/30 ML CUP PO PRN (02:15)
[2024-03-26] MEDS: FOLIC ACID 1 MG TAB PO SCH ×2 (03:28→09:07)
[2024-03-26] MEDS: HYDROcodone/APAP 7.5-325MG 1 EACH TAB PO PRN (03:37)
[2024-03-26 08:05] LABS: Glucose,Whole Blood 93 mg/dL (70-110)
[2024-03-26] MEDS ORDERED: LIDOCAINE-PRILOCAINE 2.5-2.5% CREAM 5 GM TUBE TOPICAL PRN (09:00)
[2024-03-26] MEDS: CYANOCOBALAMIN 500 MCG TAB PO SCH (09:07)
[2024-03-26] MEDS: FERROUS SULFATE 325 MG TAB PO SCH (09:07)
[2024-03-26] MEDS: PANTOPRAZOLE 40 MG TABLET PO SCH (09:07)
[2024-03-26] MEDS: LEVOTHYROXINE 100 MCG TAB PO SCH (09:07)
[2024-03-26] MEDS: CALCIUM ACETATE 667 MG TAB PO SCH (09:07)
[2024-03-26] MEDS: ESCITALOPRAM 20 MG TAB PO SCH (09:08)
[2024-03-26] MEDS: CARBIDOPA-LEVODOPA 25-250 MG 1 EACH TAB PO SCH (09:08)
--- NOTE | 2024-03-26 10:28 | P.NPCON ---
History of Present Illness - Reason for Consult end stage renal disease - History of Present Illness Reason for consultation: End-stage renal disease History of present illness: Patient is a 78-year-old male seen in renal consultation for end-stage renal disease. He is maintained on hemodialysis on Saturday schedule. Patient missed hemodialysis Saturday and Saturday. Patient states Saturday he was having diarrhea and did not feel well. Patient says Saturday he came to the hospital because he fell. Patient states he fell by tripping on his pants. He denies hitting his head or losing consciousness. Hemodynamically stable. Denies chest pain or shortness of breath. No vomiting or diarrhea. Potassium level 4.6 on admission. Scheduled to undergo dialysis today. States diarrhea is now resolved as well. Vital signs are stable. General: No acute distress. HEENT: Head exam is unremarkable. LUNGS: No audible rhonchi or wheezes. HEART: Rate and Rhythm are regular. ABDOMEN: Nontender. EXTREMITITES: Trace edema. Past Medical History Past Medical History: Diabetes Mellitus, Hearing Disorder / Deafness, Hyperlipidemia, Osteoarthritis (OA), Renal Disease, Sleep Apnea/CPAP/BIPAP, Thyroid Disorder Additional Past Medical History / Comment(s): Heart murmur, Parkinson's, CPAP use, hard of hearing; dailysis MWF, right arm fistula History of Any Multi-Drug Resistant Organisms: None Reported Past Surgical History: Orthopedic Surgery, Tonsillectomy Additional Past Surgical History / Comment(s): Bilateral knee surgery, left foot bone spur, right cataract removed, left shoulder arthroscopy, peritoneal dialysis catheter placed now removed. fistula placement for dialysis Past Anesthesia/Blood Transfusion Reactions: Previous Problems w/ Anesthesia Additional Past Anesthesia/Blood Transfusion Reaction / Comment(s): slow to wake and glucose tends to drop Past Psychological History: Anxiety, Bipolar, Depression Smoking Status: Former smoker Past Alcohol Use History: None Reported Additional Past Alcohol Use History / Comment(s): Quit smoking 25-30 yrs ago, smoked for 20 yrs, 1 PPD. Past Drug Use History: None Reported Additional Drug Use History / Comment(s): CBD Oil occasionally to back. Aware no use 24 hrs prior to procedure. - Past Family History Father Family Medical History: Cancer Mother Additional Family Medical History / Comment(s): Mother at age 74 from heart failure. Brother(s) Additional Family Medical History / Comment(s): Patient has one brother and one sister both have diabetes. Patient's 3 children with no major medical problems. Medications and Allergies Home Medications Medication Instructions Recorded Confirmed Type Levothyroxine Sodium [Synthroid] 200 mcg PO AC-BRKFST 01/29/16 03/26/24 History Escitalopram [Lexapro] 20 mg PO DAILY 11/06/19 03/26/24 History Fenofibrate 54 mg PO W/SUPPER 02/19/22 03/26/24 History lamoTRIgine [LaMICtal] 150 mg PO W/SUPPER 01/30/23 03/26/24 History Carbidopa-Levodopa 25-250 mg 1 tab PO QID 07/09/23 03/26/24 History [Sinemet 25-250 mg] Divalproex Sodium [Depakote] 1,000 mg PO W/SUPPER 07/09/23 03/26/24 History Divalproex [Depakote] 250 mg PO W/SUPPER 07/09/23 03/26/24 History Folic Acid 0.8 mg PO DAILY 11/06/23 03/26/24 History Lovastatin [Mevacor] 40 mg PO W/SUPPER 11/06/23 03/26/24 History Midodrine HCl [ProAmatine] 10 mg PO MOWEFR PRN 11/06/23 03/26/24 History Mirtazapine 7.5 mg PO HS 11/06/23 03/26/24 History Ferrous Sulfate [Iron (65 MG 325 mg PO DAILY 11/29/23 03/26/24 History Elemental)] Calcium Acetate 667mg Caps 667 mg PO AC-TID 01/27/24 03/26/24 History Omeprazole 20 mg PO DAILY 01/27/24 03/26/24 History Cyanocobalamin (Vitamin B-12) 1,000 mcg PO DAILY 03/26/24 03/26/24 History [Vitamin B-12] Cyclobenzaprine [Flexeril] 5 mg PO HS PRN 03/26/24 03/26/24 History Allergies Allergy/AdvReac Type Severity Reaction Status Date / Time No Known Allergies Allergy Verified 03/26/24 09:08 Physical Exam Vitals: Vital Signs Temp Pulse Pulse Resp BP BP Pulse Ox 03/26/24 07:39 97.9 F 65 14 115/58 98 03/26/24 03:30 77 16 03/26/24 02:00 98 F 77 16 125/69 92 L 03/25/24 23:55 97.8 F 75 16 163/74 97 03/25/24 23:04 98.1 F 78 18 139/71 99 03/25/24 20:19 98.3 F 67 19 120/66 99 Intake and Output 03/25/24 03/26/24 03/26/24 22:59 06:59 14:59 Intake Total 300 Output Total 450 Balance -150 Intake: Oral 300 Output: Urine 450 Other: Voiding Method Urinal Urinal # Voids 2 Weight 79.379 kg 79.379 kg Results - Lab Results Most recent lab results Calcium 8.6 mg/dL (8.4-10.2) 03/25/24 20:42 Magnesium 2.5 mg/dL (1.6-2.3) H 03/25/24 20:42 03/25/24 20:42 03/25/24 20:42 Assessment and Plan Plan: Assessment: 1. End-stage renal disease maintained on hemodialysis on Saturday ay schedule. Missed Saturday and Wednesdays treatment. 2. Status post fall. No acute fractures noted. 3. Metabolic acidosis secondary to chronic kidney disease and missed dialysis treatment. Expect improvement postdialysis. 4. Chronic kidney disease mineral bone disease maintained on PhosLo. Plan: Hemodialysis today and again tomorrow. Stressed compliance with hemodialysis treatments outpatient. Maintain midodrine as needed. Thank you for the consultation. I will continue to follow the patient with you during his hospital stay.
[2024-03-26 11:58] LABS: Glucose,Whole Blood 108 mg/dL (70-110)
--- NOTE | 2024-03-26 13:26 | P.CNOR ---
History of Present Illness - [facility] Consult date: 03/26/24 Consult reason: joint pain (Right knee pain, right hip pain) History of present illness: Patient is a 78-year-old male who presented to [facility] on 03/25/2024 after falling. Apparently the patient was walking and lost his balance when he fell landing on his right knee and right hip. Patient was able to get up after the fall. Patient did come to the hospital for further evaluation. Multiple imaging and lab tests were done. Images of both the right hip and right knee demonstrated no acute fractures or dislocations. Lab values did demonstrate severely elevated creatinine, he has end-stage renal disease and receives dialysis 3 days a week, apparently has missed the last few sessions. Patient was admitted under internal medicine, our orthopedic team was consulted for the right lower extremity symptoms. Patient was evaluated on the medical/surgical floor. Patient was resting in bed receiving dialysis. He appears to be in no acute distress. Patient notes most discomfort over the anterior aspect of the right knee. He does have some vague right hip pain. Patient has not been out of bed since being in the hospital. Denies any previous surgery to the right hip. He denies any pain to the lower leg, including foot or ankle at this time. He denies any left lower extremity symptoms at this time. He denies any bilateral upper extremity symptoms at this time. He denies any numbness or tingling to the right lower extremity. He denies any new onset cervical, thoracic or lumbar pain. Review of Systems Constitutional: Reports as per HPI Past Medical History Past Medical History: Diabetes Mellitus, Hearing Disorder / Deafness, Hyperlipidemia, Osteoarthritis (OA), Renal Disease, Sleep Apnea/CPAP/BIPAP, Thyroid Disorder Additional Past Medical History / Comment(s): Heart murmur, Parkinson's, CPAP use, hard of hearing; dailysis MWF, right arm fistula History of Any Multi-Drug Resistant Organisms: None Reported Past Surgical History: Orthopedic Surgery, Tonsillectomy Additional Past Surgical History / Comment(s): Bilateral knee surgery, left foot bone spur, right cataract removed, left shoulder arthroscopy, peritoneal dialysis catheter placed now removed. fistula placement for dialysis Past Anesthesia/Blood Transfusion Reactions: Previous Problems w/ Anesthesia Additional Past Anesthesia/Blood Transfusion Reaction / Comm: slow to wake and glucose tends to drop Past Psychological History: Anxiety, Bipolar, Depression Smoking Status: Former smoker Past Alcohol Use History: None Reported Additional Past Alcohol Use History / Comment(s): Quit smoking 25-30 yrs ago, smoked for 20 yrs, 1 PPD. Past Drug Use History: None Reported Additional Drug Use History / Comment(s): CBD Oil occasionally to back. Aware no use 24 hrs prior to procedure. - Past Family History Father Family Medical History: Cancer Mother Additional Family Medical History / Comment(s): Mother at age 74 from heart failure. Brother(s) Additional Family Medical History / Comment(s): Patient has one brother and one sister both have diabetes. Patient's 3 children with no major medical problems. Medications and Allergies Home Medications Medication Instructions Recorded Confirmed Type Levothyroxine Sodium [Synthroid] 200 mcg PO AC-BRKFST 01/29/16 03/26/24 History Escitalopram [Lexapro] 20 mg PO DAILY 11/06/19 03/26/24 History Fenofibrate 54 mg PO W/SUPPER 02/19/22 03/26/24 History lamoTRIgine [LaMICtal] 150 mg PO W/SUPPER 01/30/23 03/26/24 History Carbidopa-Levodopa 25-250 mg 1 tab PO QID 07/09/23 03/26/24 History [Sinemet 25-250 mg] Divalproex Sodium [Depakote] 1,000 mg PO W/SUPPER 07/09/23 03/26/24 History Divalproex [Depakote] 250 mg PO W/SUPPER 07/09/23 03/26/24 History Folic Acid 0.8 mg PO DAILY 11/06/23 03/26/24 History Lovastatin [Mevacor] 40 mg PO W/SUPPER 11/06/23 03/26/24 History Midodrine HCl [ProAmatine] 10 mg PO MOWEFR PRN 11/06/23 03/26/24 History Mirtazapine 7.5 mg PO HS 11/06/23 03/26/24 History Ferrous Sulfate [Iron (65 MG 325 mg PO DAILY 11/29/23 03/26/24 History Elemental)] Calcium Acetate 667mg Caps 667 mg PO AC-TID 01/27/24 03/26/24 History Omeprazole 20 mg PO DAILY 01/27/24 03/26/24 History Cyanocobalamin (Vitamin B-12) 1,000 mcg PO DAILY 03/26/24 03/26/24 History [Vitamin B-12] Cyclobenzaprine [Flexeril] 5 mg PO HS PRN 03/26/24 03/26/24 History Allergies Allergy/AdvReac Type Severity Reaction Status Date / Time No Known Allergies Allergy Verified 03/26/24 09:08 Physical Examination Right lower extremity: No obvious open lesions or sores are visualized throughout the extremity. There is no obvious areas of erythema Mild swelling present over the prepatellar bursa involving the right knee. No effusion is appreciated on exam Patient demonstrates tenderness with palpation to the prepatellar bursa. He is nontender along the medial and lateral joint line. Patient is nontender along the greater trochanter with palpation. Patient demonstrates no tenderness with palpation to the lower leg, this to include tibia or fibular shaft, foot or ankle Patient is able to extend and flex the hip with minimal difficulty, internal and external rotation reproduces no groin pain. Patient is able to extend and flex the knee with no difficulty. Patient is stable to both varus and valgus force. Plantarflexion, dorsiflexion, EHL, FHL are intact Calf is soft, no tenderness with palpation Sensory exam to light touch throughout the extremity is intact Dorsalis pedis pulse 2+ Results - Labs Labs: Abnormal Lab Results - Last 24 Hours (Table) 03/25/24 03/25/24 Range/Units 20:42 20:42 RBC 3.71 L (4.30-5.90) m/uL Hgb 12.0 L (13.0-17.5) gm/dL Hct 37.2 L (39.0-53.0) % MCV 100.2 H (80.0-100.0) fL Plt Count 125 L (150-450) k/uL Sodium 135 L (137-145) mmol/L Carbon Dioxide 18 L (22-30) mmol/L BUN 130 H* (9-20) mg/dL Creatinine 7.59 H* (0.66-1.25) mg/dL Glucose 122 H (74-99) mg/dL Magnesium 2.5 H (1.6-2.3) mg/dL H & H 03/25/24 Range/Units 20:42 Hgb 12.0 L (13.0-17.5) gm/dL Hct 37.2 L (39.0-53.0) % Result Diagrams: 03/25/24 20:42 03/25/24 20:42 - Diagnostic results Hip x-ray: report reviewed, image reviewed (AP pelvis along with AP and lateral views of the right hip were reviewed along with reports. Images demonstrate no acute fractures or dislocations. There are moderate osteoarthritic changes of the hip, this to include joint space loss and subchondral sclerosis) Knee x-ray: report reviewed, image reviewed (X-rays and reports were reviewed of the right knee. No acute fractures or dislocations appreciated. Mild osteoarthritic changes appreciated more along the medial joint, this to include joint space loss and subchondral sclerosis) Assessment and Plan Assessment: Right knee pain Right knee prepatellar bursal swelling Right knee osteoarthritis Right hip pain Right hip osteoarthritis Status post fall from standing Multiple medical comorbidities Plan: I was able to discuss the case, this to include both physical exam findings and imaging studies and my attending Dr. Garcia. No emergent orthopedic surgical intervention is recommended at this time With regards to the right knee, he definitely has swelling and inflammation to the prepatellar bursal region on the right knee. Recommend conservative measures, this to include icing the area. Patient can also utilize Tylenol. Patient can weight-bear as tolerated, recommend use of a walker at all times. Hip pain at this time seems very stable, likely exacerbation of the patient's right hip osteoarthritis. GI and DVT prophylaxis per primary medical service Patient would benefit from PT/OT evaluation Weight-bear as tolerated with walker Other medical specialty recommendations appreciated Discharge planning: On orthopedic standpoint patient remained stable, no emergent surgical intervention is recommended. Based on how patient does with therapy and his ADLs may benefit from short stay at subacute rehab. Please contact our orthopedic service with any further questions regarding this patient. Time with Patient: Less than 30
[2024-03-26] MEDS: MIDODRINE 5 MG TAB PO PRN (14:04)
[2024-03-26 17:07] LABS: Glucose,Whole Blood 82 mg/dL (70-110)
[2024-03-26] MEDS: ATORVASTATIN 10 MG TAB PO SCH (17:52)
[2024-03-26] MEDS: DIVALPROEX 500 MG TABLET.DR PO SCH (17:52)
[2024-03-26] MEDS: lamoTRIgine 100 MG TAB PO SCH (17:52)
[2024-03-26] MEDS: FENOFIBRATE 54 MG TAB PO SCH (17:55)
--- NOTE | 2024-03-26 18:34 | P.HPIM ---
History of Present Illness H&P Date: 03/26/24 Chief Complaint: Fall at home with right knee pain missed dialysis HISTORY OF PRESENT ILLNESS This is a 78 year old male patient with past medical history of hypertension, hyperlipidemia, hypothyroidism, diabetes mellitus type 2, end-stage renal disease on hemodialysis Saturday and Saturday, Parkinson's disease, bipolar disorder, patient was doing fine after he was admitted to [facility] for physical therapy rehabilitation last time he was in the hospital back in July 2023, he has been using a walker on a regular basis, patient did have a lot of adjustment in his home to accommodate his disabilities, apparently the patient has been falling at home because he loses his balance due to Parkinson disease, patient apparently was trying to go to the bathroom yesterday and he lost his balance and landed on the right knee and right hip, he was able to get up from the floor, his son brought him to the emergency department for evaluation, apparently the patient had missed dialysis on Saturday and he did not do dialysis on Saturday because he was in the ER, patient had a battery of testing and laboratory evaluation that showed no evidence of acute fracture, he was seen in consultation by orthopedic surgery who recommended conservative management, he was also seen by nephrology and he is undergoing hemodialysis at the time of evaluation, patient stated that he had diarrhea on Saturday that is why he did not go to dialysis, but he fell on Saturday so he came to the ER for evaluation, patient will be seen in consultation by physical therapy and Occupational Therapy, social work supervisor consultation for discharge planning, patient may benefit from short stay in subacute rehabilitation. REVIEW OF SYSTEMS Constitutional: No fever, no chills, no night sweats. No weight change. Reported weakness, fatigue. No daytime sleepiness. HEENT: No headache. No nasal drainage or congestion. No epistaxis. No sore throat. Lungs: No shortness of breath, cough, no sputum production. No wheezing. Cardiovascular: No chest pain, no lower extremity edema. No palpitations. No paroxysmal nocturnal dyspnea. No orthopnea. No lightheadedness or dizziness. No syncopal episodes. Abdominal: positive for abdominal pain. No nausea, vomiting. Had diarrhea. positive for constipation. No bloody or tarry stools. positive for loss of appetite. Genitourinary: No dysuria, increased frequency, urgency. No urinary retention. Musculoskeletal: No myalgias. Reported muscle weakness, reported gait dysfunction with chronic shuffling gait secondary to Parkinson's, reported frequent falls. positive for back pain and neck pain. Positive for right knee pain right hip pain. Integumentary: No wounds, no lesions. No rash or pruritus. positive for bruising. No change in hair or nails. Neurologic: No aphasia. No facial droop. No change in mentation. No head injury. No headache. No paralysis. No paresthesia. Psychiatric: Reported depression. No anxiety. Endocrine: No abnormal blood sugars. No weight change. No excessive sweating or thirst. No cold intolerance. MEDICAL HISTORY Hypertension Hyperlipidemia Hypothyroidism Diabetes mellitus type 2 End-stage renal disease on hemodialysis Saturday Parkinson's disease Bipolar disorder. SURGICAL HISTORY Left knee arthroscopically Left foot bone spur Left cataract surgery Left shoulder arthroscopically Right arm AV fistula Right groin Mg catheter. SOCIAL HISTORY Patient was a smoker one pack per day for 20 years ago quit 40 years ago. No alcohol use, no illicit drug use or marijuana use. He lives alone in senior housing. He normally uses a rolling walker for ambulation FAMILY HISTORY Father at age 73 from lung cancer with history of diabetes. Mother at age 74 from CHF. Brother is alive with diabetes. Sister is alive with diabetes. Patient has 2 daughters with no major medical problems. PHYSICAL EXAMINATION Gen: This is a 78-year-old male. He is resting in bed appears to be fairly comfortable. HEENT: Head is atraumatic, normocephalic. Pupils equal, round. Sclerae is anicteric. NECK: Supple. No JVD. No lymphadenopathy. No thyromegaly. LUNGS: Clear to auscultation. No wheezes or rhonchi. No intercostal retractions. HEART: Regular rate and rhythm. 2/6 systolic murmur at the left sternal border, no S3, no S4. ABDOMEN: Soft, non tender Bowel sounds are present. No masses.. EXTREMITIES: No pedal edema. No calf tenderness. Dorsalis pedis posterior bilaterally NEUROLOGICAL: Patient is awake, alert and oriented x2. Cranial nerves 2 through 12 are grossly intact. Deep tendon reflexes 2+ symmetrical, muscle power 3/5 in bilateral upper and lower extremities ASSESSMENT AND PLAN 1. Recurrent falls with acute pain in the right knee and the right hip, no evidence of fracture likely related to prepatellar bursitis. And osteoarthritis of both knee and hip, orthopedic surgery evaluated the patient recommended conservative management, patient will be seen and evaluated by physical therapy and Occupational Therapy, he may benefit from a short stay at subacute rehabilitation, continue Tylenol for pain control, continue tramadol as needed. 2. End-stage renal disease on Saturday and Saturday patient missed dialysis treatment twice consult with Dr. Scott veliz. Patient is getting hemodialysis today 3. Parkinson's disease. Consult with neurology. Patient is currently on Sinemet 40692 milligrams 4 times daily. 4. Hypertension and hypertensive cardiovascular disease. Patient not currently on medications. No documented episodes of hypotension 5. Hyperlipidemia. Continue atorvastatin 10 mg at bedtime, fenofibrate 54 mg at bedtime. 6. Hypothyroidism. Continue levothyroxine 200 g daily . 7. Diabetes mellitus type 2. With recent A1c 7.0. Continue NovoLog scale before meals and at bedtime. 8. Bipolar disorder. Patient is on Depakote 1250 mg po qhs and we will continue with Lamictal 150 mg po daily and Lexparo 20 mg po daily 9. 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 Continue ferrous sulfate 325 mg daily. 10. DVT prophylaxis. Heparin subcu 5000 units every 12 hours. 11. GI prophylaxis. Pepcid 20 mg po daily 12. Orthostatic hypotension continue patient on midodrine 10 mg orally Saturday and Saturday prior to dialysis. 13. No code. 14. Admit to inpatient, estimated length of stay 2 midnights Past Medical History Past Medical History: Diabetes Mellitus, Hearing Disorder / Deafness, Hyperlipidemia, Osteoarthritis (OA), Renal Disease, Sleep Apnea/CPAP/BIPAP, Thyroid Disorder Additional Past Medical History / Comment(s): Heart murmur, Parkinson's, CPAP use, hard of hearing; dailysis MWF, right arm fistula History of Any Multi-Drug Resistant Organisms: None Reported Past Surgical History: Orthopedic Surgery, Tonsillectomy Additional Past Surgical History / Comment(s): Bilateral knee surgery, left foot bone spur, right cataract removed, left shoulder arthroscopy, peritoneal dialysis catheter placed now removed. fistula placement for dialysis Past Anesthesia/Blood Transfusion Reactions: Previous Problems w/ Anesthesia Additional Past Anesthesia/Blood Transfusion Reaction / Comment(s): slow to wake and glucose tends to drop Past Psychological History: Anxiety, Bipolar, Depression Smoking Status: Former smoker Past Alcohol Use History: None Reported Additional Past Alcohol Use History / Comment(s): Quit smoking 25-30 yrs ago, smoked for 20 yrs, 1 PPD. Past Drug Use History: None Reported Additional Drug Use History / Comment(s): CBD Oil occasionally to back. Aware no use 24 hrs prior to procedure. - Past Family History Father Family Medical History: Cancer Mother Additional Family Medical History / Comment(s): Mother at age 74 from heart failure. Brother(s) Additional Family Medical History / Comment(s): Patient has one brother and one sister both have diabetes. Patient's 3 children with no major medical problems. Medications and Allergies Home Medications Medication Instructions Recorded Confirmed Type Levothyroxine Sodium [Synthroid] 200 mcg PO AC-BRKFST 01/29/16 03/26/24 History Escitalopram [Lexapro] 20 mg PO DAILY 11/06/19 03/26/24 History Fenofibrate 54 mg PO W/SUPPER 02/19/22 03/26/24 History lamoTRIgine [LaMICtal] 150 mg PO W/SUPPER 01/30/23 03/26/24 History Carbidopa-Levodopa 25-250 mg 1 tab PO QID 07/09/23 03/26/24 History [Sinemet 25-250 mg] Divalproex Sodium [Depakote] 1,000 mg PO W/SUPPER 07/09/23 03/26/24 History Divalproex [Depakote] 250 mg PO W/SUPPER 07/09/23 03/26/24 History Folic Acid 0.8 mg PO DAILY 11/06/23 03/26/24 History Lovastatin [Mevacor] 40 mg PO W/SUPPER 11/06/23 03/26/24 History Midodrine HCl [ProAmatine] 10 mg PO MOWEFR PRN 11/06/23 03/26/24 History Mirtazapine 7.5 mg PO HS 11/06/23 03/26/24 History Ferrous Sulfate [Iron (65 MG 325 mg PO DAILY 11/29/23 03/26/24 History Elemental)] Calcium Acetate 667mg Caps 667 mg PO AC-TID 01/27/24 03/26/24 History Omeprazole 20 mg PO DAILY 01/27/24 03/26/24 History Cyanocobalamin (Vitamin B-12) 1,000 mcg PO DAILY 03/26/24 03/26/24 History [Vitamin B-12] Cyclobenzaprine [Flexeril] 5 mg PO HS PRN 03/26/24 03/26/24 History Allergies Allergy/AdvReac Type Severity Reaction Status Date / Time No Known Allergies Allergy Verified 03/26/24 09:08 Physical Exam Vitals: Vital Signs Temp Pulse Pulse Resp BP BP Pulse Ox 03/26/24 12:48 98.0 F 63 16 127/68 100 03/26/24 07:39 97.9 F 65 14 115/58 98 03/26/24 03:30 77 16 03/26/24 02:00 98 F 77 16 125/69 92 L 03/25/24 23:55 97.8 F 75 16 163/74 97 03/25/24 23:04 98.1 F 78 18 139/71 99 03/25/24 20:19 98.3 F 67 19 120/66 99 Intake and Output 03/25/24 03/26/24 03/26/24 22:59 06:59 14:59 Intake Total 300 Output Total 450 300 Balance -150 -300 Intake: Oral 300 Output: Urine 450 300 Other: Voiding Method Urinal Urinal # Voids 2 Weight 79.379 kg 79.379 kg Results CBC & Chem 7: 03/25/24 20:42 03/25/24 20:42 Labs: Abnormal Lab Results - Last 24 Hours (Table) 03/25/24 03/25/24 Range/Units 20:42 20:42 RBC 3.71 L (4.30-5.90) m/uL Hgb 12.0 L (13.0-17.5) gm/dL Hct 37.2 L (39.0-53.0) % MCV 100.2 H (80.0-100.0) fL Plt Count 125 L (150-450) k/uL Sodium 135 L (137-145) mmol/L Carbon Dioxide 18 L (22-30) mmol/L BUN 130 H* (9-20) mg/dL Creatinine 7.59 H* (0.66-1.25) mg/dL Glucose 122 H (74-99) mg/dL Magnesium 2.5 H (1.6-2.3) mg/dL Thrombosis Risk Factor Assmnt - Choose All That Apply Any of the Below Risk Factors Present?: Yes Each Factor Represents 1 point: Medical pt on bed rest Other Risk Factors: Yes Each Risk Factor Represents 3 Points: Age 75 years or older Other congenital or acquired thrombophilia - If yes, enter type in comment: No Thrombosis Risk Factor Assessment Total Risk Factor Score: 4 Thrombosis Risk Factor Assessment Level: Moderate Risk
[2024-03-26] MEDS: DIVALPROEX 250 MG TABLET.DR PO SCH (19:11)
[2024-03-26] MEDS: MIRTAZAPINE 15 MG TAB PO SCH (20:04)
[2024-03-26] MEDS: HEPARIN SODIUM,PORCINE 5,000 UNIT/ML 1 ML VIAL SQ SCH (20:05)
[2024-03-27 08:27] LABS: Basophils % (A) 1 %; Eosinophils # (A) 0.1 k/uL (0-0.7); Eosinophils % (A) 2 %; HCT 37.6 % (39.0-53.0); HGB 12.1 gm/dL (13.0-17.5); Lymphocytes % (A) 50 %; MCH 32.3 pg (25.0-35.0); MCHC 32.2 g/dL (31.0-37.0); MCV 100.2 fL (80.0-100.0); Macrocytosis Slight; Mean Platelet Volume 7.9; Monocytes # (A) 0.3 k/uL (0-1.0); Monocytes % (A) 7 %; Neutrophils # (A) 1.6 k/uL (1.3-7.7); Neutrophils % (A) 40 %; Platelet Count 116 k/uL (150-450); RBC 3.75 m/uL (4.30-5.90); RDW 14.7 % (11.5-15.5)
[2024-03-27 08:50] LABS: ALT <6 U/L (4-49); AST 31 U/L (17-59); African American GFR (CKD) 15 (>60 ml/min/1.73 sqM); Albumin 2.9 g/dL (3.5-5.0); Albumin/Globulin Ratio 1.1; Alkaline Phosphatase 79 U/L (38-126); Anion Gap 5 mmol/L; Blood Urea Nitrogen 55 mg/dL (9-20); Carbon Dioxide 31 mmol/L (22-30); Chloride 100 mmol/L (98-107); Globulin 2.7 g/dL; Glucose 68 mg/dL (74-99); Non-African American GFR(CKD) 13 (>60 ml/min/1.73 sqM); Sodium 136 mmol/L (137-145); Total Bilirubin 0.9 mg/dL (0.2-1.3); Total Protein 5.6 g/dL (6.3-8.2)
[2024-03-27] MEDS: BACLOFEN 10 MG TAB PO PRN (08:58)
--- NOTE | 2024-03-27 11:46 | P.PN ---
Subjective Patient is seen in follow-up for end-stage renal disease. He is maintained on hemodialysis on Saturday schedule. Completed hemodialysis yesterday without any problems. No active complaints at this time. Vital signs are stable. General: No acute distress. HEENT: Head exam is unremarkable. LUNGS: No audible rhonchi or wheezes. HEART: Rate and Rhythm are regular. ABDOMEN: Nontender. EXTREMITITES: No edema. Objective - Vital Signs Vital signs: Vital Signs Temp 97.8 F 03/27/24 08:00 Pulse 61 03/27/24 08:00 Resp 16 03/27/24 08:00 BP 125/69 03/27/24 08:00 Pulse Ox 99 03/27/24 08:00 FiO2 Intake & Output 03/26/24 03/27/24 03/27/24 18:59 06:59 18:59 Intake Total 500 240 Output Total 2300 100 Balance -1800 140 Intake: Oral 240 Hemodialysis 500 Output: Urine 300 100 Hemodialysis 2000 Other: Voiding Method Urinal Urinal Urinal # Voids 2 - Labs CBC & Chem 7: 03/27/24 07:04 03/27/24 07:04 Labs: Abnormal Lab Results - Last 24 Hours (Table) 03/27/24 03/27/24 Range/Units 07:04 07:04 RBC 3.75 L (4.30-5.90) m/uL Hgb 12.1 L (13.0-17.5) gm/dL Hct 37.6 L (39.0-53.0) % MCV 100.2 H (80.0-100.0) fL Plt Count 116 L (150-450) k/uL Sodium 136 L (137-145) mmol/L Carbon Dioxide 31 H (22-30) mmol/L BUN 55 H (9-20) mg/dL Creatinine 4.16 H (0.66-1.25) mg/dL Glucose 68 L (74-99) mg/dL Total Protein 5.6 L (6.3-8.2) g/dL Albumin 2.9 L (3.5-5.0) g/dL Assessment and Plan Plan: Assessment: 1. End-stage renal disease maintained on hemodialysis on Saturday schedule. Missed Saturday and Wednesdays treatment. 2. Status post fall. No acute fractures noted. 3. Metabolic acidosis secondary to chronic kidney disease and missed dialysis treatment. Resolved postdialysis. 4. Chronic kidney disease mineral bone disease maintained on PhosLo. Plan: Hemodialysis today today. Stressed compliance with hemodialysis treatments outpatient. Maintain midodrine as needed.
--- NOTE | 2024-03-27 15:44 | P.PN ---
Subjective Progress Note Date: 03/27/24 HISTORY OF PRESENT ILLNESS This is a 78 year old male patient with past medical history of hypertension, hyperlipidemia, hypothyroidism, diabetes mellitus type 2, end-stage renal diseas e on hemodialysis Saturday and Saturday, Parkinson's disease, bipolar disorder, patient was doing fine after he was admitted to [facility] for physical therapy rehabilitation last time he was in the hospital back in July 2023, he has been using a walker on a regular basis, patient did have a lot of adjustment in his home to accommodate his disabilities, apparently the patient has been falling at home because he loses his balance due to Parkinson disease, patient apparently was trying to go to the bathroom yesterday and he lost his balance and landed on the right knee and right hip, he was able to get up from the floor, his son brought him to the emergency department for e valuation, apparently the patient had missed dialysis on Saturday and he did not do dialysis on Saturday because he was in the ER, patient had a battery of testing and laboratory evaluation that showed no evidence of acute fracture, he was seen in consultation by orthopedic surgery who recommended conservative management, he was also seen by nephrology and he is undergoing hemodialysis at the time of evaluation, patient stated that he had diarrhea on Saturday that is why he did not go to dialysis, but he fell on Saturday so he came to the ER for evaluation, patient will be seen in consultation by physical therapy and Occupational Therapy, clinical social work aide consultation for discharge planning, patient may benefit from short stay in subacute rehabilitation. 03/27: Patient is lying down in bed in no apparent distress, he is receiving hemodialysis today, he denies any chest pain, shortness of breath, his metabolic acidosis is better after dialysis, he denies any abdominal pain, nausea or vomiting, he continues to have significant pain in the right knee, he continues to need quite a bit of help ambulating, is not safe for the patient to be home at this point in time, physical therapy and Occupational Therapy to work with the patient, I believe the patient will require to go for subacute genet abilitation for short-term. REVIEW OF SYSTEMS Constitutional: No fever, no chills, no night sweats. No weight change. Reported weakness, fatigue. No daytime sleepiness. HEENT: No headache. No nasal drainage or congestion. No epistaxis. No sore throat. Lungs: No shortness of breath, cough, no sputum production. No wheezing. Cardiovascular: No chest pain, no lower extremity edema. No palpitations. No paroxysmal nocturnal dyspnea. No orthopnea. No lightheadedness or dizziness. No syncopal episodes. Abdominal: positive for abdominal pain. No nausea, vomiting. Had diarrhea. positive for constipation. No bloody or tarry stools. positive for loss of appetite. Genitourinary: No dysuria, increased frequency, urgency. No urinary retention. Musculoskeletal: No myalgias. Reported muscle weakness, reported gait dysfunction with chronic shuffling gait secondary to Parkinson's, reported frequent falls. positive for back pain and neck pain. Positive for right knee pain right hip pain. Integumentary: No wounds, no lesions. No rash or pruritus. positive for bruising. No change in hair or nails. Neurologic: No aphasia. No facial droop. No change in mentation. No head injury. No headache. No paralysis. No paresthesia. Psychiatric: Reported depression. No anxiety. Endocrine: No abnormal blood sugars. No weight change. No excessive sweating or thirst. No cold intolerance. PHYSICAL EXAMINATION Gen: This is a 78-year-old male. He is resting in bed appears to be fairly comfortable. HEENT: Head is atraumatic, normocephalic. Pupils equal, round. Sclerae is anicteric. NECK: Supple. No JVD. No lymphadenopathy. No thyromegaly. LUNGS: Clear to auscultation. No wheezes or rhonchi. No intercostal retractions . HEART: Regular rate and rhythm. 2/6 systolic murmur at the left sternal border, no S3, no S4. ABDOMEN: Soft, non tender Bowel sounds are present. No masses.. EXTREMITIES: No pedal edema. No calf tenderness. Dorsalis pedis posterior bilaterally NEUROLOGICAL: Patient is awake, alert and oriented x2. Cranial nerves 2 through 12 are grossly intact. Deep tendon reflexes 2+ symmetrical, muscle power 3/5 in bilateral upper and lower extremities ASSESSMENT AND PLAN 1. Recurrent falls with acute pain in the right knee and the right hip, no evidence of fracture likely related to prepatellar bursitis. And osteoarthritis of both knee and hip, orthopedic surgery evaluated the patient recommended conservative management, patient will be seen and evaluated by physical therapy and Occupational Therapy, he may benefit from a short stay at subacute rehabilitation, continue Tylenol for pain control, continue tramadol as needed. 2. End-stage renal disease on Saturday and Saturday patient missed dialysis treatment twice consult with Dr. Stephanie veliz. Patient is getting hemodialysis today 3. Parkinson's disease. Consult with neurology. Patient is currently on Sinemet 92965 milligrams 4 times daily. 4. Hypertension and hypertensive cardiovascular disease. Patient not currently on medications. No documented episodes of hypotension 5. Hyperlipidemia. Continue atorvastatin 10 mg at bedtime, fenofibrate 54 mg at bedtime. 6. Hypothyroidism. Continue levothyroxine 200 g daily . 7. Diabetes mellitus type 2. With recent A1c 7.0. Continue NovoLog scale before meals and at bedtime. 8. Bipolar disorder. Patient is on Depakote 1250 mg po qhs and we will continue with Lamictal 150 mg po daily and Lexparo 20 mg po daily 9. 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 Continue ferrous sulfate 325 mg daily. 10. DVT prophylaxis. Heparin subcu 5000 units every 12 hours. 11. GI prophylaxis. Pepcid 20 mg po daily 12. Orthostatic hypotension continue patient on midodrine 10 mg orally Saturday and Saturday prior to dialysis. 13. No code. Objective - Vital Signs Vital signs: Vital Signs Temp 97.4 F L 03/27/24 13:12 Pulse 56 L 03/27/24 13:12 Resp 18 03/27/24 13:12 BP 114/67 03/27/24 13:12 Pulse Ox 98 03/27/24 13:12 FiO2 Intake & Output 03/26/24 03/27/24 03/27/24 18:59 06:59 18:59 Intake Total 500 240 Output Total 2300 100 Balance -1800 140 Intake: Oral 240 Hemodialysis 500 Output: Urine 300 100 Hemodialysis 2000 Other: Voiding Method Urinal Urinal Urinal # Voids 2 - Labs CBC & Chem 7: 03/27/24 07:04 03/27/24 07:04 Labs: Abnormal Lab Results - Last 24 Hours (Table) 03/27/24 03/27/24 Range/Units 07:04 07:04 RBC 3.75 L (4.30-5.90) m/uL Hgb 12.1 L (13.0-17.5) gm/dL Hct 37.6 L (39.0-53.0) % MCV 100.2 H (80.0-100.0) fL Plt Count 116 L (150-450) k/uL Sodium 136 L (137-145) mmol/L Carbon Dioxide 31 H (22-30) mmol/L BUN 55 H (9-20) mg/dL Creatinine 4.16 H (0.66-1.25) mg/dL Glucose 68 L (74-99) mg/dL Total Protein 5.6 L (6.3-8.2) g/dL Albumin 2.9 L (3.5-5.0) g/dL
[2024-03-28] MEDS: FOLIC ACID 1 MG TAB PO SCH (08:57)
[2024-03-28 10:48] LABS: Basophils % (A) 1 %; Eosinophils # (A) 0.1 k/uL (0-0.7); Eosinophils % (A) 2 %; HCT 39.4 % (39.0-53.0); HGB 12.5 gm/dL (13.0-17.5); Lymphocytes # (A) 1.3 k/uL (1.0-4.8); Lymphocytes % (A) 43 %; MCH 32.6 pg (25.0-35.0); MCHC 31.7 g/dL (31.0-37.0); Macrocytosis Slight; Mean Platelet Volume 7.2; Monocytes # (A) 0.2 k/uL (0-1.0); Monocytes % (A) 6 %; Neutrophils # (A) 1.3 k/uL (1.3-7.7); Neutrophils % (A) 45 %; Platelet Count 132 k/uL (150-450); RBC 3.82 m/uL (4.30-5.90); RDW 14.3 % (11.5-15.5); WBC 2.9 k/uL (3.8-10.6)
[2024-03-28 11:01] LABS: ALT <6 U/L (4-49); AST 28 U/L (17-59); African American GFR (CKD) 18 (>60 ml/min/1.73 sqM); Albumin/Globulin Ratio 1.2; Alkaline Phosphatase 77 U/L (38-126); Anion Gap 6 mmol/L; Blood Urea Nitrogen 31 mg/dL (9-20); Calcium 8.9 mg/dL (8.4-10.2); Carbon Dioxide 29 mmol/L (22-30); Chloride 100 mmol/L (98-107); Globulin 2.5 g/dL; Glucose 185 mg/dL (74-99); Non-African American GFR(CKD) 15 (>60 ml/min/1.73 sqM); Potassium 3.6 mmol/L (3.5-5.1); Sodium 135 mmol/L (137-145); Total Bilirubin 0.9 mg/dL (0.2-1.3); Total Protein 5.5 g/dL (6.3-8.2)
--- NOTE | 2024-03-28 11:39 | P.PN ---
Subjective Patient is seen in follow-up for end-stage renal disease. He is maintained on hemodialysis on Saturday schedule. Completed hemodialysis yesterday without any problems. No active complaints at this time. Vital signs are stable. General: No acute distress. HEENT: Head exam is unremarkable. LUNGS: No audible rhonchi or wheezes. HEART: Rate and Rhythm are regular. ABDOMEN: Nontender. EXTREMITITES: No edema. Objective - Vital Signs Vital signs: Vital Signs Temp 97.7 F 03/28/24 08:22 Pulse 57 L 03/28/24 08:22 Resp 17 03/28/24 08:22 BP 113/59 03/28/24 08:22 Pulse Ox 97 03/28/24 08:22 FiO2 Intake & Output 03/27/24 03/28/24 03/28/24 18:59 06:59 18:59 Intake Total 740 Output Total 1700 200 Balance -960 -200 Intake: Oral 240 Hemodialysis 500 Output: Urine 200 200 Hemodialysis 1500 Other: Voiding Method Urinal Urinal Urinal # Voids 1 1 - Labs CBC & Chem 7: 03/28/24 10:27 03/28/24 10:27 Labs: Abnormal Lab Results - Last 24 Hours (Table) 03/28/24 03/28/24 Range/Units 10:27 10:27 WBC 2.9 L (3.8-10.6) k/uL RBC 3.82 L (4.30-5.90) m/uL Hgb 12.5 L (13.0-17.5) gm/dL MCV 103.0 H (80.0-100.0) fL Plt Count 132 L (150-450) k/uL Sodium 135 L (137-145) mmol/L BUN 31 H (9-20) mg/dL Creatinine 3.54 H (0.66-1.25) mg/dL Glucose 185 H (74-99) mg/dL Total Protein 5.5 L (6.3-8.2) g/dL Albumin 3.0 L (3.5-5.0) g/dL Assessment and Plan Plan: Assessment: 1. End-stage renal disease maintained on hemodialysis on Saturday schedule. Missed Saturday and Wednesdays treatment. 2. Status post fall. No acute fractures noted. 3. Metabolic acidosis secondary to chronic kidney disease and missed dialysis treatment. Resolved postdialysis. 4. Chronic kidney disease mineral bone disease maintained on PhosLo. Plan: Hemodialysis Saturday. Stressed compliance with hemodialysis treatments outpatient. Maintain midodrine as needed.
--- NOTE | 2024-03-28 13:43 | P.PN ---
Subjective Progress Note Date: 03/28/24 This is a 78 year old male patient with past medical history of hypertension, hyperlipidemia, hypothyroidism, diabetes mellitus type 2, end-stage renal disease on hemodialysis Saturday and Saturday, Parkinson's disease, bipolar disorder, patient was doing fine after he was admitted to [facility] for physical therapy rehabilitation last time he was in the hospital back in July 2023, he has been using a walker on a regular basis, patient did have a lot of adjustment in his home to accommodate his disabilities, apparently the patient has been falling at home because he loses his balance due to Parkinson disease, patient apparently was trying to go to the bathroom yesterday and he lost his balance and landed on the right knee and right hip, he was able to get up from the floor, his son brought him to the emergency department for evaluation, apparently the patient had missed dialysis on Saturday and he did not do dialysis on Saturday because he was in the ER, patient had a battery of testing and laboratory evaluation that showed no evidence of acute fracture, he was seen in consultation by orthopedic surgery who recommended conservative management, he was also seen by nephrology and he is undergoing hemodialysis at the time of evaluation, patient stated that he had diarrhea on Saturday that is why he did not go to dialysis, but he fell on Saturday so he came to the ER for evaluation, patient will be seen in consultation by physical therapy and Occupational Therapy, social worker masters consultation for discharge planning, patient may benefit from short stay in subacute rehabilitation. 03/27: Patient is lying down in bed in no apparent distress, he is receiving h emodialysis today, he denies any chest pain, shortness of breath, his metabolic acidosis is better after dialysis, he denies any abdominal pain, nausea or vomiting, he continues to have significant pain in the right knee, he continues to need quite a bit of help ambulating, is not safe for the patient to be home at this point in time, physical therapy and Occupational Therapy to work with the patient, I believe the patient will require to go for subacute rehabilitation for short-term 03/28. Patient seen and examined. Still complaining of lethargy and weakness. Patient is a fall risk. REVIEW OF SYSTEMS: CONSTITUTIONAL: No fever, no malaise,. CARDIOVASCULAR: No chest pain, no palpitations, no syncope. PULMONARY: No shortness of breath, no cough, GASTROINTESTINAL: No diarrhea, no nausea, no vomiting, no abdominal pain. NEUROLOGICAL: No headaches, no weakness, PHYSICAL EXAMINATION: GENERAL: The patient is alert and oriented x3, not in any acute distress. Well developed, well nourished. HEENT: Pupils are round and equally reacting to light. EOMI. No scleral icterus. No conjunctival pallor. Normocephalic, atraumatic. No pharyngeal erythema. No thyromegaly. CARDIOVASCULAR: S1 and S2 present. No murmurs, rubs, or gallops. PULMONARY: Chest is clear to auscultation, no wheezing or crackles. ABDOMEN: Soft, nontender, nondistended, normoactive bowel sounds. No palpable organomegaly. MUSCULOSKELETAL: No joint swelling or deformity. EXTREMITIES: No cyanosis, clubbing, or pedal edema. NEUROLOGICAL: Gross neurological examination did not reveal any focal deficits. SKIN: No rashes. Assessment and plan 1. Recurrent falls with acute pain in the right knee and the right hip, no evidence of fracture likely related to prepatellar bursitis. And osteoarthritis of both knee and hip, orthopedic surgery evaluated the patient recommended conservative management, continue pain management PT and OT recommend rehab 2. End-stage renal disease on Saturday and Saturday; continue dialysis per nephrology 3. Parkinson's disease. Patient is currently on Sinemet [id number] milligrams 4 times daily. 4. Hypertension and hypertensive cardiovascular disease. Patient not currently on medications. No documented episodes of hypotension 5. Hyperlipidemia. Continue atorvastatin 10 mg at bedtime, fenofibrate 54 mg at bedtime. 6. Hypothyroidism. Continue levothyroxine 200 g daily . 7. Diabetes mellitus type 2. With recent A1c 7.0. Continue NovoLog scale before meals and at bedtime. 8. Bipolar disorder. Patient is on Depakote 1250 mg po qhs and we will continue with Lamictal 150 mg po daily and Lexparo 20 mg po daily 9. 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 Continue ferrous sulfate 325 mg daily. 10. DVT prophylaxis. Heparin subcu 5000 units every 12 hours. 11. GI prophylaxis. Pepcid 20 mg po daily 12. Orthostatic hypotension continue patient on midodrine 10 mg orally Saturday and Saturday prior to dialysis. Labs and medication were reviewed.. Continue same treatment. Continue with symptomatic treatment. Resume home medication. Monitor labs and vitals. DVT and GI prophylaxis. Further recommendations as per clinical course of the patient Dictation was produced using [employer] dictation software. please excuse any grammatical, word or spelling errors. Objective - Vital Signs Vital signs: Vital Signs Temp 97.7 F 03/28/24 08:22 Pulse 57 L 03/28/24 08:22 Resp 17 03/28/24 08:22 BP 113/59 03/28/24 08:22 Pulse Ox 97 03/28/24 08:22 FiO2 Intake & Output 03/27/24 03/28/24 03/28/24 18:59 06:59 18:59 Intake Total 740 Output Total 1700 200 Balance -960 -200 Intake: Oral 240 Hemodialysis 500 Output: Urine 200 200 Hemodialysis 1500 Other: Voiding Method Urinal Urinal Urinal # Voids 1 1 - Labs CBC & Chem 7: 03/28/24 10:27 03/28/24 10:27 Labs: Abnormal Lab Results - Last 24 Hours (Table) 03/28/24 03/28/24 Range/Units 10:27 10:27 WBC 2.9 L (3.8-10.6) k/uL RBC 3.82 L (4.30-5.90) m/uL Hgb 12.5 L (13.0-17.5) gm/dL MCV 103.0 H (80.0-100.0) fL Plt Count 132 L (150-450) k/uL Sodium 135 L (137-145) mmol/L BUN 31 H (9-20) mg/dL Creatinine 3.54 H (0.66-1.25) mg/dL Glucose 185 H (74-99) mg/dL Total Protein 5.5 L (6.3-8.2) g/dL Albumin 3.0 L (3.5-5.0) g/dL
--- NOTE | 2024-03-29 10:54 | P.PN ---
Subjective Patient is seen in follow-up for end-stage renal disease. He is maintained on hemodialysis on Saturday schedule. Resting in bed. No active complaints at this time. Vital signs are stable. General: No acute distress. HEENT: Head exam is unremarkable. LUNGS: No audible rhonchi or wheezes. HEART: Rate and Rhythm are regular. ABDOMEN: Nontender. EXTREMITITES: No edema. Objective - Vital Signs Vital signs: Vital Signs Temp 97.5 F L 03/29/24 07:19 Pulse 52 L 03/29/24 07:19 Resp 16 03/29/24 07:19 BP 135/68 03/29/24 07:19 Pulse Ox 98 03/29/24 07:19 FiO2 Intake & Output 03/28/24 03/29/24 03/29/24 18:59 06:59 18:59 Other: Voiding Method Urinal Urinal Urinal # Voids 2 2 # Bowel Movements 1 0 - Labs CBC & Chem 7: 03/28/24 10:27 03/28/24 10:27 Labs: Abnormal Lab Results - Last 24 Hours (Table) 03/28/24 Range/Units 10:27 Sodium 135 L (137-145) mmol/L BUN 31 H (9-20) mg/dL Creatinine 3.54 H (0.66-1.25) mg/dL Glucose 185 H (74-99) mg/dL Total Protein 5.5 L (6.3-8.2) g/dL Albumin 3.0 L (3.5-5.0) g/dL Assessment and Plan Plan: Assessment: 1. End-stage renal disease maintained on hemodialysis on Saturday schedule. Missed Saturday and Wednesdays treatment. 2. Status post fall. No acute fractures noted. 3. Metabolic acidosis secondary to chronic kidney disease and missed dialysis treatment. Resolved postdialysis. 4. Chronic kidney disease mineral bone disease maintained on PhosLo. Plan: Hemodialysis Saturday. Stressed compliance with hemodialysis treatments outpatient. Maintain midodrine as needed.
--- NOTE | 2024-03-29 13:03 | P.PN ---
Subjective Progress Note Date: 03/29/24 This is a 78 year old male patient with past medical history of hypertension, hyperlipidemia, hypothyroidism, diabetes mellitus type 2, end-stage renal disease on hemodialysis Saturday and Saturday, Parkinson's disease, bipolar disorder, patient was doing fine after he was admitted to [facility] for physical therapy rehabilitation last time he was in the hospital back in July 2023, he has been using a walker on a regular basis, patient did have a lot of adjustment in his home to accommodate his disabilities, apparently the patient has been falling at home because he loses his balance due to Parkinson disease, patient apparently was trying to go to the bathroom yesterday and he lost his balance and landed on the right knee and right hip, he was able to get up from the floor, his son brought him to the emergency department for evaluation, apparently the patient had missed dialysis on Saturday and he did not do dialysis on Saturday because he was in the ER, patient had a battery of testing and laboratory evaluation that showed no evidence of acute fracture, he was seen in consultation by orthopedic surgery who recommended conservative management, he was also seen by nephrology and he is undergoing hemodialysis at the time of evaluation, patient stated that he had diarrhea on Saturday that is why he did not go to dialysis, but he fell on Saturday so he came to the ER for evaluation, patient will be seen in consultation by physical therapy and Occupational Therapy, mental health social worker consultation for discharge planning, patient may benefit from short stay in subacute rehabilitation. 03/27: Patient is lying down in bed in no apparent distress, he is receiving h emodialysis today, he denies any chest pain, shortness of breath, his metabolic acidosis is better after dialysis, he denies any abdominal pain, nausea or vomiting, he continues to have significant pain in the right knee, he continues to need quite a bit of help ambulating, is not safe for the patient to be home at this point in time, physical therapy and Occupational Therapy to work with the patient, I believe the patient will require to go for subacute rehabilitation for short-term 03/28. Patient seen and examined. Still complaining of lethargy and weakness. Patient is a fall risk. 03/29. Patient seen and examined.Vital signs this morning temperature 97.5, heart rate 52, respirations 16, blood pressure 135/68. States he feels better. REVIEW OF SYSTEMS: CONSTITUTIONAL: No fever, no malaise,. CARDIOVASCULAR: No chest pain, no palpitations, no syncope. PULMONARY: No shortness of breath, no cough, GASTROINTESTINAL: No diarrhea, no nausea, no vomiting, no abdominal pain. NEUROLOGICAL: No headaches, no weakness, PHYSICAL EXAMINATION: GENERAL: The patient is alert and oriented x3, not in any acute distress. Well developed, well nourished. HEENT: Pupils are round and equally reacting to light. EOMI. No scleral icterus. No conjunctival pallor. Normocephalic, atraumatic. No pharyngeal erythema. No thyromegaly. CARDIOVASCULAR: S1 and S2 present. No murmurs, rubs, or gallops. PULMONARY: Chest is clear to auscultation, no wheezing or crackles. ABDOMEN: Soft, nontender, nondistended, normoactive bowel sounds. No palpable organomegaly. MUSCULOSKELETAL: No joint swelling or deformity. EXTREMITIES: No cyanosis, clubbing, or pedal edema. NEUROLOGICAL: Gross neurological examination did not reveal any focal deficits. SKIN: No rashes. Assessment and plan 1. Recurrent falls with acute pain in the right knee and the right hip, no evidence of fracture likely related to prepatellar bursitis. And osteoarthritis of both knee and hip, orthopedic surgery evaluated the patient recommended conservative management, continue pain management PT and OT recommend rehab 2. End-stage renal disease on Saturday and Saturday; continue dialysis per nephrology 3. Parkinson's disease. Patient is currently on Sinemet [id number] milligrams 4 times daily. 4. Hypertension and hypertensive cardiovascular disease. Monitor vital signs, not on blood pressure medication at this time 5. Hyperlipidemia. Continue atorvastatin 10 mg at bedtime, fenofibrate 54 mg at bedtime. 6. Hypothyroidism. Continue levothyroxine 200 g daily . 7. Diabetes mellitus type 2. With recent A1c 7.0. Continue NovoLog scale before meals and at bedtime. 8. Bipolar disorder. Patient is on Depakote 1250 mg po qhs and we will continue with Lamictal 150 mg po daily and Lexparo 20 mg po daily 9. 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 Continue ferrous sulfate 325 mg daily. 10. DVT prophylaxis. Heparin subcu 5000 units every 12 hours. 11. GI prophylaxis. Pepcid 20 mg po daily 12. Orthostatic hypotension continue patient on midodrine 10 mg orally Saturday and Saturday prior to dialysis. Labs and medication were reviewed.. Continue same treatment. Continue with symptomatic treatment. Resume home medication. Monitor labs and vitals. DVT and GI prophylaxis. Further recommendations as per clinical course of the patient Dictation was produced using [employer] dictation software. please excuse any grammatical, word or spelling errors. Objective - Vital Signs Vital signs: Vital Signs Temp 97.5 F L 03/29/24 07:19 Pulse 52 L 03/29/24 07:19 Resp 16 03/29/24 07:19 BP 135/68 03/29/24 07:19 Pulse Ox 98 03/29/24 07:19 FiO2 Intake & Output 03/28/24 03/29/24 03/29/24 18:59 06:59 18:59 Other: Voiding Method Urinal Urinal # Voids 2 2 # Bowel Movements 1 0 - Labs CBC & Chem 7: 03/28/24 10:27 03/28/24 10:27 Labs: Abnormal Lab Results - Last 24 Hours (Table) 03/28/24 03/28/24 Range/Units 10:27 10:27 WBC 2.9 L (3.8-10.6) k/uL RBC 3.82 L (4.30-5.90) m/uL Hgb 12.5 L (13.0-17.5) gm/dL MCV 103.0 H (80.0-100.0) fL Plt Count 132 L (150-450) k/uL Sodium 135 L (137-145) mmol/L BUN 31 H (9-20) mg/dL Creatinine 3.54 H (0.66-1.25) mg/dL Glucose 185 H (74-99) mg/dL Total Protein 5.5 L (6.3-8.2) g/dL Albumin 3.0 L (3.5-5.0) g/dL
--- NOTE | 2024-03-30 11:46 | P.PN ---
Subjective Patient is seen in follow-up for end-stage renal disease. He is maintained on hemodialysis on Saturday schedule. Resting in bed. No active complaints at this time. Tolerating dialysis well. Vital signs are stable. General: No acute distress. HEENT: Head exam is unremarkable. LUNGS: No audible rhonchi or wheezes. HEART: Rate and Rhythm are regular. ABDOMEN: Nontender. EXTREMITITES: No edema. Objective - Vital Signs Vital signs: Vital Signs Temp 98 F 03/30/24 06:43 Pulse 56 L 03/30/24 06:43 Resp 17 03/30/24 06:43 BP 155/78 03/30/24 06:43 Pulse Ox 100 03/30/24 06:43 FiO2 Intake & Output 03/29/24 03/30/24 03/30/24 18:59 06:59 18:59 Output Total 100 Balance -100 Output: Urine 100 Other: Voiding Method Urinal Urinal Urinal # Voids 3 0 # Bowel Movements 0 - Labs CBC & Chem 7: 03/28/24 10:27 03/28/24 10:27 Assessment and Plan Plan: Assessment: 1. End-stage renal disease maintained on hemodialysis on Saturday schedule. Missed Saturday and Wednesdays treatment. 2. Status post fall. No acute fractures noted. 3. Metabolic acidosis secondary to chronic kidney disease and missed dialysis treatment. Resolved postdialysis. 4. Chronic kidney disease mineral bone disease maintained on PhosLo. Plan: Currently seen while undergoing hemodialysis. Stressed compliance with hemodialysis treatments outpatient. Maintain midodrine as needed. Potential rehab upon discharge.
--- NOTE | 2024-03-30 14:27 | P.PN ---
Subjective Progress Note Date: 03/30/24 This is a 78 year old male patient with past medical history of hypertension, hyperlipidemia, hypothyroidism, diabetes mellitus type 2, end-stage renal disease on hemodialysis Saturday and Saturday, Parkinson's disease, bipolar disorder, patient was doing fine after he was admitted to [facility] for physical therapy rehabilitation last time he was in the hospital back in July 2023, he has been using a walker on a regular basis, patient did have a lot of adjustment in his home to accommodate his disabilities, apparently the patient has been falling at home because he loses his balance due to Parkinson disease, patient apparently was trying to go to the bathroom yesterday and he lost his balance and landed on the right knee and right hip, he was able to get up from the floor, his son brought him to the emergency department for evaluation, apparently the patient had missed dialysis on Saturday and he did not do dialysis on Saturday because he was in the ER, patient had a battery of testing and laboratory evaluation that showed no evidence of acute fracture, he was seen in consultation by orthopedic surgery who recommended conservative management, he was also seen by nephrology and he is undergoing hemodialysis at the time of evaluation, patient stated that he had diarrhea on Saturday that is why he did not go to dialysis, but he fell on Saturday so he came to the ER for evaluation, patient will be seen in consultation by physical therapy and Occupational Therapy, director of social services consultation for discharge planning, patient may benefit from short stay in subacute rehabilitation. 03/27: Patient is lying down in bed in no apparent distress, he is receiving h emodialysis today, he denies any chest pain, shortness of breath, his metabolic acidosis is better after dialysis, he denies any abdominal pain, nausea or vomiting, he continues to have significant pain in the right knee, he continues to need quite a bit of help ambulating, is not safe for the patient to be home at this point in time, physical therapy and Occupational Therapy to work with the patient, I believe the patient will require to go for subacute rehabilitation for short-term 03/28. Patient seen and examined. Still complaining of lethargy and weakness. Patient is a fall risk. 03/29. Patient seen and examined.Vital signs this morning temperature 97.5, heart rate 52, respirations 16, blood pressure 135/68. States he feels better. 03/30. Patient seen examined. Patient is waiting on placement to rehab facility REVIEW OF SYSTEMS: CONSTITUTIONAL: No fever, no malaise,. CARDIOVASCULAR: No chest pain, no palpitations, no syncope. PULMONARY: No shortness of breath, no cough, GASTROINTESTINAL: No diarrhea, no nausea, no vomiting, no abdominal pain. NEUROLOGICAL: No headaches, no weakness, PHYSICAL EXAMINATION: GENERAL: The patient is alert and oriented x3, not in any acute distress. Well developed, well nourished. HEENT: Pupils are round and equally reacting to light. EOMI. No scleral icterus. No conjunctival pallor. Normocephalic, atraumatic. No pharyngeal erythema. No thyromegaly. CARDIOVASCULAR: S1 and S2 present. No murmurs, rubs, or gallops. PULMONARY: Chest is clear to auscultation, no wheezing or crackles. ABDOMEN: Soft, nontender, nondistended, normoactive bowel sounds. No palpable organomegaly. MUSCULOSKELETAL: No joint swelling or deformity. EXTREMITIES: No cyanosis, clubbing, or pedal edema. NEUROLOGICAL: Gross neurological examination did not reveal any focal deficits. SKIN: No rashes. Assessment and plan 1. Recurrent falls with acute pain in the right knee and the right hip, no evidence of fracture likely related to prepatellar bursitis. And osteoarthritis of both knee and hip, orthopedic surgery evaluated the patient recommended conservative management, continue pain management PT and OT recommend rehab 2. End-stage renal disease on Saturday and Saturday; continue dialysis per nephrology 3. Parkinson's disease. Patient is currently on Sinemet [id number] milligrams 4 t imes daily. 4. Hypertension and hypertensive cardiovascular disease. Monitor vital signs, not on blood pressure medication at this time 5. Hyperlipidemia. Continue atorvastatin 10 mg at bedtime, fenofibrate 54 mg at bedtime. 6. Hypothyroidism. Continue levothyroxine 200 g daily . 7. Diabetes mellitus type 2. With recent A1c 7.0. Continue NovoLog scale before meals and at bedtime. 8. Bipolar disorder. Patient is on Depakote 1250 mg po qhs and we will continue with Lamictal 150 mg po daily and Lexparo 20 mg po daily 9. 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 Continue ferrous sulfate 325 mg daily. 10. DVT prophylaxis. Heparin subcu 5000 units every 12 hours. 11. GI prophylaxis. Pepcid 20 mg po daily 12. Orthostatic hypotension continue patient on midodrine 10 mg orally Saturday and Saturday prior to dialysis. Labs and medication were reviewed.. Continue same treatment. Continue with symptomatic treatment. Resume home medication. Monitor labs and vitals. DVT and GI prophylaxis. Further recommendations as per clinical course of the feliz toledo Dictation was produced using [employer] dictation software. please excuse any grammatical, word or spelling errors. Objective - Vital Signs Vital signs: Vital Signs Temp 97.9 F 03/30/24 12:44 Pulse 55 L 03/30/24 12:44 Resp 16 03/30/24 12:44 BP 128/65 03/30/24 12:44 Pulse Ox 98 03/30/24 12:44 FiO2 Intake & Output 03/29/24 03/30/24 03/30/24 18:59 06:59 18:59 Intake Total 400 Output Total 100 1400 Balance -100 -1000 Intake: Hemodialysis 400 Output: Urine 100 Hemodialysis 1400 Other: Voiding Method Urinal Urinal Urinal # Voids 3 0 # Bowel Movements 0 - Labs CBC & Chem 7: 03/28/24 10:27 03/28/24 10:27
--- NOTE | 2024-03-31 13:52 | P.DS ---
Providers Date of admission: 03/25/24 22:20 Expected date of discharge: 04/01/24 Attending physician: Kimberly Gerardo Consults: 03/25/24 22:17 Consult Physician Routine Consulting Provider: Tai Coombs Consult Reason/Comments: esrd Do you want consulting provider notified?: Yes 03/25/24 22:18 Consult Physician Routine Consulting Provider: Eduar Garcia Consult Reason/Comments: knee pain Do you want consulting provider notified?: Yes Primary care physician: Kimberly Gerardo Hospital Course: This is a 78 year old male patient with past medical history of hypertension, hyperlipidemia, hypothyroidism, diabetes mellitus type 2, end-stage renal disease on hemodialysis Saturday and Saturday, Parkinson's disease, bipolar disorder, patient was doing fine after he was admitted to [facility] for physical therapy rehabilitation last time he was in the hospital back in July 2023, he has been using a walker on a regular basis, patient did have a lot of adjustment in his home to accommodate his disabilities, apparently the patient has been falling at home because he loses his balance due to Parkinson disease, patient apparently was trying to go to the bathroom yesterday and he lost his balance and landed on the right knee and right hip, he was able to get up from the floor, his son brought him to the emergency department for evaluation, apparently the patient had missed dialysis on Saturday and he did not do dialysis on Saturday because he was in the ER, patient had a battery of testing and laboratory evaluation that showed no evidence of acute fracture, he was seen in consultation by orthopedic surgery who recommended conservative management, he was also seen by nephrology and he is undergoing hemodialysis at the time of evaluation, patient stated that he had diarrhea on Saturday that is why he did not go to dialysis, but he fell on Saturday so he came to the ER for evaluation, patient will be seen in consultation by physical therapy and Occupational Therapy, director of social services consultation for discharge planning, patient may benefit from short stay in subacute rehabilitation. 03/27: Patient is lying down in bed in no apparent distress, he is receiving hemodialysis today, he denies any chest pain, shortness of breath, his metabolic acidosis is better after dialysis, he denies any abdominal pain, nausea or vomiting, he continues to have significant pain in the right knee, he continues to need quite a bit of help ambulating, is not safe for the patient to be home at this point in time, physical therapy and Occupational Therapy to work with the patient, I believe the patient will require to go for subacute rehabilitation for short-term 03/28: Patient seen and examined. Still complaining of lethargy and weakness. Patient is a fall risk. 03/29: Patient seen and examined.Vital signs this morning temperature 97.5, heart rate 52, respirations 16, blood pressure 135/68. States he feels better. 03/30: Patient seen examined. Patient is waiting on placement to rehab facility 03/31: Patient sitting up in chair eating lunch at this time, denies any pain. Patient denies chest pain, shortness of breath. Spoke with social work and patient is ready for discharge to [facility] for physical therapy. 04/01: Patient was kept in the hospital for another 24 hours, because patient developed to have a significant nausea and intractable vomiting that happened immediately after dinner, so he was kept in the hospital for another 24 hours for observation, laboratory evaluation did not reveal any acute abnormalities, his lipase was negative amylase was negative, his laboratory evaluation except for his renal disease was normal, patient was seen today on hemodialysis, he is getting his dialysis before he gets transferred, he was a bit hypotensive patient was given 1 dose of midodrine while he was in hemodialysis, and the patient can be discharged or transferred to [facility] after hemodialysis is done if vital signs are stable. DISCHARGE DIAGNOSES: 1. Recurrent falls with acute pain in the right knee and the right hip, no evidence of fracture likely related to prepatellar bursitis. 2. End-stage renal disease on Saturday and Saturday. 3. Parkinson's disease. 4. Hypertension and hypertensive cardiovascular disease. 5. Hyperlipidemia. 6. Hypothyroidism. 7. Diabetes mellitus type 2. 8. Bipolar disorder. 9. 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 10. Orthostatic hypotension. Impression and plan of care have been directed as dictated by the signing physician. Zaira Silver, nurse practitioner acting as scribe for signing physician. Patient Condition at Discharge: Fair Plan - Discharge Summary New Discharge Prescriptions: New Baclofen [Lioresal] 5 mg PO BID PRN 30 Days #60 tab PRN Reason: Muscle Spasm Continue Levothyroxine Sodium [Synthroid] 200 mcg PO AC-BRKFST Escitalopram [Lexapro] 20 mg PO DAILY Fenofibrate 54 mg PO W/SUPPER Divalproex Sodium [Depakote] 1,000 mg PO W/SUPPER Carbidopa-Levodopa 25-250 mg [Sinemet 25-250 mg] 1 tab PO QID Folic Acid 0.8 mg PO DAILY Ferrous Sulfate [Iron (65 MG Elemental)] 325 mg PO DAILY Calcium Acetate 667mg Caps 667 mg PO AC-TID lamoTRIgine [LaMICtal] 150 mg PO W/SUPPER Divalproex [Depakote] 250 mg PO W/SUPPER Lovastatin [Mevacor] 40 mg PO W/SUPPER Midodrine HCl [ProAmatine] 10 mg PO MOWEFR PRN PRN Reason: before dialysis Mirtazapine 7.5 mg PO HS Omeprazole 20 mg PO DAILY Cyanocobalamin (Vitamin B-12) [Vitamin B-12] 1,000 mcg PO DAILY Discontinued Cyclobenzaprine [Flexeril] 5 mg PO HS PRN PRN Reason: Muscle Spasm Discharge Medication List Levothyroxine Sodium [Synthroid] 200 mcg PO AC-BRKFST 01/29/16 [History] Escitalopram [Lexapro] 20 mg PO DAILY 11/06/19 [History] Fenofibrate 54 mg PO W/SUPPER 02/19/22 [History] lamoTRIgine [LaMICtal] 150 mg PO W/SUPPER 01/30/23 [History] Carbidopa-Levodopa 25-250 mg [Sinemet 25-250 mg] 1 tab PO QID 07/09/23 [History] Divalproex Sodium [Depakote] 1,000 mg PO W/SUPPER 07/09/23 [History] Divalproex [Depakote] 250 mg PO W/SUPPER 07/09/23 [History] Folic Acid 0.8 mg PO DAILY 11/06/23 [History] Lovastatin [Mevacor] 40 mg PO W/SUPPER 11/06/23 [History] Midodrine HCl [ProAmatine] 10 mg PO MOWEFR PRN 11/06/23 [History] Mirtazapine 7.5 mg PO HS 11/06/23 [History] Ferrous Sulfate [Iron (65 MG Elemental)] 325 mg PO DAILY 11/29/23 [History] Calcium Acetate 667mg Caps 667 mg PO AC-TID 01/27/24 [History] Omeprazole 20 mg PO DAILY 01/27/24 [History] Cyanocobalamin (Vitamin B-12) [Vitamin B-12] 1,000 mcg PO DAILY 03/26/24 [History] Baclofen [Lioresal] 5 mg PO BID PRN 30 Days #60 tab 03/31/24 [Rx] Follow up Appointment(s)/Referral(s): Kimberly Gerardo MD [Primary Care Provider] - 1-2 days Patient Instructions/Handouts: Baclofen (By mouth) Discharge Disposition: TRANSFER TO SNF/ECF
[2024-03-31] MEDS: ONDANSETRON 4 MG TAB PO PRN (16:23)
[2024-03-31 19:06] LABS: HCT 41.8 % (39.0-53.0); HGB 12.8 gm/dL (13.0-17.5); MCH 31.5 pg (25.0-35.0); MCHC 30.7 g/dL (31.0-37.0); MCV 102.8 fL (80.0-100.0); Macrocytosis Slight; Mean Platelet Volume 7.6; Platelet Count 150 k/uL (150-450); RBC 4.06 m/uL (4.30-5.90); RDW 14.2 % (11.5-15.5); WBC 5.2 k/uL (3.8-10.6)
--- NOTE | 2024-03-31 19:13 | P.PN ---
Subjective Patient is seen for follow-up for end-stage renal disease. No significant complaints today. Plans for discharge to rehab. Tolerated treatment well yesterday. Objective - Vital Signs Vital signs: Vital Signs Temp 98.3 F 03/31/24 12:12 Pulse 68 03/31/24 12:12 Resp 16 03/31/24 12:12 BP 110/67 03/31/24 12:12 Pulse Ox 97 03/31/24 12:12 FiO2 Intake & Output 03/31/24 03/31/24 04/01/24 06:59 18:59 06:59 Intake Total 590 Balance 590 Intake: Oral 590 Other: Voiding Method Urinal Urinal # Voids 3 # Bowel Movements 1 - Exam Patient is awake, comfortable, no acute distress. Examination of the heart S1 and S2 Examination of the lungs bilateral breath sounds are heard Abdomen is soft nontender Examination of lower extremities shows no significant edema HEAD COACH exam grossly intact - Labs CBC & Chem 7: 03/31/24 18:41 03/28/24 10:27 Labs: Abnormal Lab Results - Last 24 Hours (Table) 03/31/24 Range/Units 18:41 RBC 4.06 L (4.30-5.90) m/uL Hgb 12.8 L (13.0-17.5) gm/dL MCV 102.8 H (80.0-100.0) fL MCHC 30.7 L (31.0-37.0) g/dL Assessment and Plan Assessment: 1. End-stage renal disease maintained on hemodialysis on Saturday schedule. Missed Saturday and Wednesdays treatment. Status post make-up treatment during hospitalization. 2. Status post fall. No acute fractures noted. 3. Metabolic acidosis secondary to chronic kidney disease and missed dialysis treatment. Resolved postdialysis. 4. Chronic kidney disease mineral bone disease maintained on PhosLo. Plan: Hemodialysis in a.m. Encourage increase oral intake Midodrine with hemodialysis for low blood pressure.
[2024-03-31 19:15] LABS: African American GFR (CKD) 12 (>60 ml/min/1.73 sqM); Anion Gap 11 mmol/L; Blood Urea Nitrogen 47 mg/dL (9-20); Carbon Dioxide 26 mmol/L (22-30); Chloride 98 mmol/L (98-107); Glucose 158 mg/dL (74-99); Potassium 4.2 mmol/L (3.5-5.1); Sodium 135 mmol/L (137-145)
[2024-03-31 19:16] LABS: ALT 6 U/L (4-49); AST 24 U/L (17-59); Albumin 3.6 g/dL (3.5-5.0); Albumin/Globulin Ratio 1.3; Alkaline Phosphatase 94 U/L (38-126); Amylase 55 U/L (30-110); Calcium 9.7 mg/dL (8.4-10.2); Globulin 2.8 g/dL; LDH 147 U/L (120-246); Lipase 153 U/L (23-300); Non-African American GFR(CKD) 10 (>60 ml/min/1.73 sqM); Total Bilirubin 0.8 mg/dL (0.2-1.3); Total Protein 6.4 g/dL (6.3-8.2)
--- NOTE | 2024-03-31 19:47 | XR ---
EXAMINATION TYPE: XR abdomen 2V DATE OF EXAM: 03/31/2024 6:22 PM CLINICAL INDICATION:Male, 78 years old with history of abdominal pain; [facility] COMPARISON: None. TECHNIQUE: Supine and upright views of the abdomen were obtained. FINDINGS: The bowel gas pattern is nonspecific without dilated loops of small or large bowel. Fecal m aterial and gas are demonstrated throughout the colon and rectum. There is no evidence for organomeg rosalina or pneumoperitoneum. The osseous structures appear intact with degenerative changes noted. No p athologic calcifications are indicated. IMPRESSION: Nonspecific, nonobstructive bowel gas pattern. No free air detected. If concern persists, recommend followup radiographs or CT.
[2024-03-31 21:39] LABS: Glucose,Whole Blood 122 mg/dL (70-110)
[2024-04-01 07:39] LABS: Glucose,Whole Blood 122 mg/dL (70-110)
[2024-04-01 12:04] LABS: Glucose,Whole Blood 96 mg/dL (70-110)
[2024-04-01 16:13] VITALS: BMI 23.7
[2024-04-01 17:11] LABS: Glucose,Whole Blood 124 mg/dL (70-110)
[2024-04-01 20:08] VITALS: BP 123/72; PULSE 58; RESP 18; TEMP 98.3
--- NOTE | 2024-04-01 22:49 | P.PN ---
Subjective Patient is seen for follow-up for end-stage renal disease. No significant complaints today. Plans for discharge to rehab. Objective - Vital Signs Vital signs: Vital Signs Temp 98.3 F 04/01/24 19:25 Pulse 58 L 04/01/24 19:25 Resp 18 04/01/24 19:25 BP 123/72 04/01/24 19:25 Pulse Ox 96 04/01/24 13:10 FiO2 Intake & Output 04/01/24 04/01/24 04/02/24 06:59 18:59 06:59 Intake Total 590 400 Output Total 200 2400 Balance 390 -2000 Weight 79.379 kg Intake: Oral 590 Hemodialysis 400 Output: Urine 200 Hemodialysis 2400 Other: Voiding Method Urinal Urinal - Exam Patient is awake, comfortable, no acute distress. Examination of lower extremities shows no significant edema [employer] exam grossly intact - Labs CBC & Chem 7: 03/31/24 18:41 03/31/24 18:41 Labs: Abnormal Lab Results - Last 24 Hours (Table) 04/01/24 04/01/24 Range/Units 07:29 17:09 POC Glucose (mg/dL) 122 H 124 H (70-110) mg/dL Assessment and Plan Assessment: 1. End-stage renal disease maintained on hemodialysis on Saturday schedule. Missed Saturday and Wednesdays treatment. Status post make-up treatment during hospitalization. 2. Status post fall. No acute fractures noted. 3. Metabolic acidosis secondary to chronic kidney disease and missed dialysis treatment. Resolved postdialysis. 4. Chronic kidney disease mineral bone disease maintained on PhosLo. Plan: Hemodialysis today. Encourage increase oral intake Midodrine with hemodialysis for low blood pressure.
--- NOTE | 2024-04-02 18:41 | P.PN ---
Subjective Progress Note Date: 04/01/24 HISTORY OF PRESENT ILLNESS This is a 78 year old male patient with past medical history of hypertension, hyperlipidemia, hypothyroidism, diabetes mellitus type 2, end-stage renal diseas e on hemodialysis Saturday and Saturday, Parkinson's disease, bipolar disorder, patient was doing fine after he was admitted to [facility] for physical therapy rehabilitation last time he was in the hospital back in July 2023, he has been using a walker on a regular basis, patient did have a lot of adjustment in his home to accommodate his disabilities, apparently the patient has been falling at home because he loses his balance due to Parkinson disease, patient apparently was trying to go to the bathroom yesterday and he lost his balance and landed on the right knee and right hip, he was able to get up from the floor, his son brought him to the emergency department for e valuation, apparently the patient had missed dialysis on Saturday and he did not do dialysis on Saturday because he was in the ER, patient had a battery of testing and laboratory evaluation that showed no evidence of acute fracture, he was seen in consultation by orthopedic surgery who recommended conservative management, he was also seen by nephrology and he is undergoing hemodialysis at the time of evaluation, patient stated that he had diarrhea on Saturday that is why he did not go to dialysis, but he fell on Saturday so he came to the ER for evaluation, patient will be seen in consultation by physical therapy and Occupational Therapy, social media assistant consultation for discharge planning, patient may benefit from short stay in subacute rehabilitation. 03/27: Patient is lying down in bed in no apparent distress, he is receiving hemodialysis today, he denies any chest pain, shortness of breath, his metabolic acidosis is better after dialysis, he denies any abdominal pain, nausea or vomiting, he continues to have significant pain in the right knee, he continues to need quite a bit of help ambulating, is not safe for the patient to be home at this point in time, physical therapy and Occupational Therapy to work with the patient, I believe the patient will require to go for subacute genet abilitation for short-term. 04/01: Patient is laying down in bed in no apparent distress, apparently his blood pressure is a bit lower, he just started on hemodialysis, I told the nursing staff to give the patient a dose of midodrine, we will continue with his hemodialysis and after he has done from his dialysis if the symptoms are stable the patient can be transferred to [facility] and rehabilitation, for the patient to participate in physical therapy and Occupational Therapy as recommended by PT due to his significant pain in the right knee. And due to his Parkinson and balance disorder. REVIEW OF SYSTEMS Constitutional: No fever, no chills, no night sweats. No weight change. Reported weakness, fatigue. No daytime sleepiness. HEENT: No headache. No nasal drainage or congestion. No epistaxis. No sore throat. Lungs: No shortness of breath, cough, no sputum production. No wheezing. Cardiovascular: No chest pain, no lower extremity edema. No palpitations. No paroxysmal nocturnal dyspnea. No orthopnea. No lightheadedness or dizziness. No syncopal episodes. Abdominal: positive for abdominal pain. No nausea, vomiting. Had diarrhea. positive for constipation. No bloody or tarry stools. positive for loss of appetite. Genitourinary: No dysuria, increased frequency, urgency. No urinary retention. Musculoskeletal: No myalgias. Reported muscle weakness, reported gait dysfunction with chronic shuffling gait secondary to Parkinson's, reported frequent falls. positive for back pain and neck pain. Positive for right knee pain right hip pain. Integumentary: No wounds, no lesions. No rash or pruritus. positive for bruising. No change in hair or nails. Neurologic: No aphasia. No facial droop. No change in mentation. No head injury. No headache. No paralysis. No paresthesia. Psychiatric: Reported depression. No anxiety. Endocrine: No abnormal blood sugars. No weight change. No excessive sweating or thirst. No cold intolerance. PHYSICAL EXAMINATION Gen: This is a 78-year-old male. He is resting in bed appears to be fairly comfortable. HEENT: Head is atraumatic, normocephalic. Pupils equal, round. Sclerae is anicteric. NECK: Supple. No JVD. No lymphadenopathy. No thyromegaly. LUNGS: Clear to auscultation. No wheezes or rhonchi. No intercostal retractions. HEART: Regular rate and rhythm. 2/6 systolic murmur at the left sternal border, no S3, no S4. ABDOMEN: Soft, non tender Bowel sounds are present. No masses.. EXTREMITIES: No pedal edema. No calf tenderness. Dorsalis pedis posterior bilaterally NEUROLOGICAL: Patient is awake, alert and oriented x2. Cranial nerves 2 through 12 are grossly intact. Deep tendon reflexes 2+ symmetrical, muscle power 3/5 in bilateral upper and lower extremities ASSESSMENT AND PLAN 1. Recurrent falls with acute pain in the right knee and the right hip, no evidence of fracture likely related to prepatellar bursitis. And osteoarthritis of both knee and hip, orthopedic surgery evaluated the patient recommended conservative management, patient will be seen and evaluated by physical therapy and Occupational Therapy, he may benefit from a short stay at subacute rehabilitation, continue Tylenol for pain control, continue tramadol as needed. 2. End-stage renal disease on Saturday and Saturday patient missed dialysis treatment twice consult with Dr. Stephanie veliz. Patient is getting hemodialysis today 3. Parkinson's disease. Consult with neurology. Patient is currently on Sinemet 72923 milligrams 4 times daily. 4. Hypertension and hypertensive cardiovascular disease. Patient not currently on medications. No documented episodes of hypotension 5. Hyperlipidemia. Continue atorvastatin 10 mg at bedtime, fenofibrate 54 mg at bedtime. 6. Hypothyroidism. Continue levothyroxine 200 g daily . 7. Diabetes mellitus type 2. With recent A1c 7.0. Continue NovoLog scale before meals and at bedtime. 8. Bipolar disorder. Patient is on Depakote 1250 mg po qhs and we will continue with Lamictal 150 mg po daily and Lexparo 20 mg po daily 9. 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 Continue ferrous sulfate 325 mg daily. 10. DVT prophylaxis. Heparin subcu 5000 units every 12 hours. 11. GI prophylaxis. Pepcid 20 mg po daily 12. Orthostatic hypotension continue patient on midodrine 10 mg orally Saturday and Saturday prior to dialysis. 13. Patient is medically stable to be transferred to [facility] after hemodialysis. Objective - Vital Signs Vital signs: Vital Signs Temp 98.1 F 04/01/24 13:10 Pulse 69 04/01/24 13:10 Resp 17 04/01/24 13:10 BP 104/50 04/01/24 13:10 Pulse Ox 96 04/01/24 13:10 FiO2 Intake & Output 03/31/24 04/01/24 04/01/24 18:59 06:59 18:59 Intake Total 590 Output Total 200 Balance 390 Intake: Oral 590 Output: Urine 200 Other: Voiding Method Urinal Urinal Urinal # Voids 3 # Bowel Movements 1 - Labs CBC & Chem 7: 03/31/24 18:41 03/31/24 18:41 Labs: Abnormal Lab Results - Last 24 Hours (Table) 03/31/24 03/31/24 03/31/24 Range/Units 18:41 18:41 21:38 RBC 4.06 L (4.30-5.90) m/uL Hgb 12.8 L (13.0-17.5) gm/dL MCV 102.8 H (80.0-100.0) fL MCHC 30.7 L (31.0-37.0) g/dL Sodium 135 L (137-145) mmol/L BUN 47 H (9-20) mg/dL Creatinine 5.04 H (0.66-1.25) mg/dL Glucose 158 H (74-99) mg/dL POC Glucose (mg/dL) 122 H (70-110) mg/dL 04/01/24 Range/Units 07:29 RBC (4.30-5.90) m/uL Hgb (13.0-17.5) gm/dL MCV (80.0-100.0) fL MCHC (31.0-37.0) g/dL Sodium (137-145) mmol/L BUN (9-20) mg/dL Creatinine (0.66-1.25) mg/dL Glucose (74-99) mg/dL POC Glucose (mg/dL) 122 H (70-110) mg/dL
== END 2024-04-01 19:57 | DRG 557 ==
LOC: EC 20:10 → 5NMEDONC 22:20
PROVIDERS: ADMIT Internal Medicine; ATTEND Internal Medicine
PROC: 5A1D70Z Performance of Urinary Filtration, Intermittent, Less than 6 Hours Per Day (ICD-10-PCS; principal; 2024-03-26)
DX: M70.41 Prepatellar bursitis, right knee (principal); N18.6 End stage renal disease; I13.11 Hypertensive heart and chronic kidney disease without heart failure, with stage 5 chronic kidney disease, or end stage renal disease; E87.20 Acidosis, unspecified; W01.0XXA Fall on same level from slipping, tripping and stumbling without subsequent striking against object, initial encounter; Y92.019 Unspecified place in single-family (private) house as the place of occurrence of the external cause; R29.6 Repeated falls; M17.0 Bilateral primary osteoarthritis of knee; E11.22 Type 2 diabetes mellitus with diabetic chronic kidney disease; Z99.2 Dependence on renal dialysis; G20.A1 Parkinson's disease without dyskinesia, without mention of fluctuations; E78.5 Hyperlipidemia, unspecified; R11.2 Nausea with vomiting, unspecified; F31.9 Bipolar disorder, unspecified; D63.1 Anemia in chronic kidney disease; I95.1 Orthostatic hypotension; Z66 Do not resuscitate; E83.89 Other disorders of mineral metabolism; E03.9 Hypothyroidism, unspecified; H91.90 Unspecified hearing loss, unspecified ear; G47.30 Sleep apnea, unspecified; F41.9 Anxiety disorder, unspecified; M16.11 Unilateral primary osteoarthritis, right hip; Z87.891 Personal history of nicotine dependence; Z91.81 History of falling; Z79.899 Other long term (current) drug therapy; Z79.890 Hormone replacement therapy
CPT/HCPCS: 36415; 73502; 74019; 80048; 80053; 82150; 83615; 83690; 83735; 85025; 85027; 90935; 93005; 99285

== ENCOUNTER 2024-04-30 12:53 | Emergency (ER) | payer MEDICARE, BC ==
--- NOTE | 2024-04-30 13:20 | ED ---
Fall HPI - General Chief Complaint: Fall Stated Complaint: fall Time Seen by Provider: 04/30/24 13:05 Source: patient, EMS, RN notes reviewed Mode of arrival: EMS Limitations: no limitations - History of Present Illness Initial Comments: This is a 78-year-old male who presents to the emergency department for a fall. Patient lives alone and was getting into bed last night with his walker, when he reportedly lost balance and fell. He ended up landing on the ground and remained there throughout the night until this morning. Her daughter tried to contact him by phone and he did not answer. Her then called the apartment health information manager to go check on him and found him on the ground. EMS was then called to bring the patient to the emergency department. Denies hitting his head or any loss of consciousness. Not taking any blood thinners. Currently complaining of pain to the left hip and right shoulder. He is on hemodialysis Saturday, Saturday, and Saturday. Daughter states that he missed dialysis yesterday. MD Complaint: fall - Related Data Home Medications Medication Instructions Recorded Confirmed Levothyroxine Sodium [Synthroid] 200 mcg PO AC-BRKFST 01/29/16 03/26/24 Escitalopram [Lexapro] 20 mg PO DAILY 11/06/19 03/26/24 Fenofibrate 54 mg PO W/SUPPER 02/19/22 03/26/24 lamoTRIgine [LaMICtal] 150 mg PO W/SUPPER 01/30/23 03/26/24 Carbidopa-Levodopa 25-250 mg 1 tab PO QID 07/09/23 03/26/24 [Sinemet 25-250 mg] Divalproex Sodium [Depakote] 1,000 mg PO W/SUPPER 07/09/23 03/26/24 Divalproex [Depakote] 250 mg PO W/SUPPER 07/09/23 03/26/24 Folic Acid 0.8 mg PO DAILY 11/06/23 03/26/24 Lovastatin [Mevacor] 40 mg PO W/SUPPER 11/06/23 03/26/24 Midodrine HCl [ProAmatine] 10 mg PO MOWEFR PRN 11/06/23 03/26/24 Mirtazapine 7.5 mg PO HS 11/06/23 03/26/24 Ferrous Sulfate [Iron (65 MG 325 mg PO DAILY 11/29/23 03/26/24 Elemental)] Calcium Acetate 667mg Caps 667 mg PO AC-TID 01/27/24 03/26/24 Omeprazole 20 mg PO DAILY 01/27/24 03/26/24 Cyanocobalamin (Vitamin B-12) 1,000 mcg PO DAILY 03/26/24 03/26/24 [Vitamin B-12] Previous Rx's Medication Instructions Recorded Baclofen [Lioresal] 5 mg PO BID PRN 30 Days #60 tab 03/31/24 Allergies Allergy/AdvReac Type Severity Reaction Status Date / Time No Known Allergies Allergy Verified 04/30/24 13:13 Review of Systems ROS Statement: Those systems with pertinent positive or pertinent negative responses have been documented in the HPI. ROS Other: All systems not noted in ROS Statement are negative. Past Medical History Past Medical History: Diabetes Mellitus, Hearing Disorder / Deafness, Hyperlipidemia, Osteoarthritis (OA), Renal Disease, Sleep Apnea/CPAP/BIPAP, Thyroid Disorder Additional Past Medical History / Comment(s): Heart murmur, Parkinson's, CPAP use, hard of hearing; dailysis MWF, right arm fistula History of Any Multi-Drug Resistant Organisms: None Reported Past Surgical History: Orthopedic Surgery, Tonsillectomy Additional Past Surgical History / Comment(s): Bilateral knee surgery, left foot bone spur, right cataract removed, left shoulder arthroscopy, peritoneal dialysis catheter placed now removed. fistula placement for dialysis Past Anesthesia/Blood Transfusion Reactions: Previous Problems w/ Anesthesia Additional Past Anesthesia/Blood Transfusion Reaction / Comment(s): slow to wake and glucose tends to drop Past Psychological History: Anxiety, Bipolar, Depression Smoking Status: Former smoker Past Alcohol Use History: None Reported Past Drug Use History: None Reported - Past Family History Father Family Medical History: Cancer Mother Additional Family Medical History / Comment(s): Mother at age 74 from heart failure. Brother(s) Additional Family Medical History / Comment(s): Patient has one brother and one sister both have diabetes. Patient's 3 children with no major medical problems. General Exam Limitations: no limitations General appearance: alert, in no apparent distress Head exam: Present: atraumatic, normocephalic, normal inspection Eye exam: Present: normal appearance, PERRL, EOMI. Absent: scleral icterus, conjunctival injection, periorbital swelling Respiratory exam: Present: normal lung sounds bilaterally. Absent: respiratory distress, wheezes, rales, rhonchi, stridor Cardiovascular Exam: Present: regular rate, normal rhythm, normal heart sounds. Absent: systolic murmur, diastolic murmur, rubs, gallop, clicks Extremities exam: Present: other (Minor tenderness to palpation over the left hip. Range of motion limited by pain. No shortening or rotation of the extremity. 2+ DP and PT pulses. Minor tenderness to the right shoulder. No deformities. 2+ radial pulses.) Neurological exam: Present: alert, oriented X3, CN II-XII intact Psychiatric exam: Present: normal affect, normal mood Course Vital Signs 04/30/24 04/30/24 13:07 18:33 Temperature 97.9 F 98.1 F Pulse Rate 66 73 Respiratory 20 18 Rate Blood Pressure 146/72 149/92 O2 Sat by Pulse 96 96 Oximetry Medical Decision Making - Medical Decision Making This is a 78-year-old male who presents to the emergency department for a fall, left hip pain, and right shoulder pain. Was pt. sent in by a medical professional or institution? @ -No Did you speak to anyone other than the patient for history? @ -His daughter provided the information about how EMS was contacted. Did you review nursing and triage notes? @ -Yes, and I agree, it is accurate with regards to the patient's symptoms. Were old charts reviewed? @ -No Differential Diagnosis? @ -Differential Musculoskeletal: Muscular strain, contusion, ligament sprain, fracture, arthritis, septic arthritis, bursitis, cellulitis, muscle spasm, nerve compression, DVT, arterial occlusion, herpes zoster, electrolyte abnormality, tumor.... This is not meant to be in all inclusive list EKG interpreted by me (3pts min.)? @ -EKG interpreted by me demonstrating the following: Sinus rhythm. Ventricular rate 64 bpm, [place] interval 200 ms, QRS duration 85 ms, QTc 416 ms. X-rays interpreted by me (1pt min.)? @ -Chest x-ray obtained, my interpretation identifies no localized consolidations or infiltrates. X-ray of the left hip and pelvis and x-ray of the right shoulder obtained. My interpretation of both images reveals no acute fractures. CT interpreted by me (1pt min.)? @ -Not obtained U/S interpreted by me (1pt. min.)? @ -Not obtained What testing was considered but not performed? (CT, X-rays, U/S, labs)? Why? @ -None What meds were considered but not given? Why? @ -None Did you discuss the management of the patient with other professionals? @ -No Did you reconcile home meds? @ -No Was smoking cessation discussed for >3mins.? @ -No Was critical care preformed (if so, how long)? @ -No Were there social determinants of health that impacted care today? How? (Homelessness, low income, unemployed, alcoholism, drug addiction, transportation, low edu. Level, literacy, decrease access to med. care, skilled nursing, rehab)? @ -No Was there de-escalation of care discussed even if they declined? (Discuss DNR or withdrawal of care, Hospice)? @ -No What co-morbidities impacted this encounter? (DM, HTN, Smoking, COPD, CAD, Cancer, CVA, Hep., AIDS, mental health diagnosis, sleep apnea, morbid obesity)? @ -Since disease Was patient admitted / discharged? @ -Discharged. Lab work fairly unremarkable. Decreased renal function is stable when compared with prior and consistent with the patient being on dialysis. Urinalysis negative for signs of infection. Chest x-ray, x-ray of the right shoulder, and x-ray of the pelvis with left hip revealed osteoarthritis without any acute fractures. Patient and family are both comfortable with him being discharged home. Patient discharged home with family in stable condition. Advised follow up with his PCP. Undiagnosed new problem with uncertain prognosis? @ -None Drug Therapy requiring intensive monitoring for toxicity (Heparin, Nitro, Insulin, Cardizem)? @ -None Were any procedures done? @ -None Diagnosis/symptom? @ -Fall Acute, or Chronic, or Acute on Chronic? @ -Acute Uncomplicated (without systemic symptoms) or Complicated (systemic symptoms)? @ -Uncomplicated Side effects of treatment? @ -None Exacerbation, Progression, or Severe Exacerbation] @ -Not applicable Poses a threat to life or bodily function? @ -No Return precautions reviewed in depth, the patient is instructed to return to the emergency department with any new, worsening, or concerning symptoms. Patient verbalized understanding. This case was discussed in detail with the attending ED physician, Dr. Jimenez. Presentation, findings, and treatment plan discussed in detail as well. - Lab Data Result diagrams: 04/30/24 13:31 04/30/24 13:31 Lab Results 04/30/24 04/30/24 04/30/24 Range/Units 13:14 13:31 13:31 WBC 6.1 (3.8-10.6) k/uL RBC 3.55 L (4.30-5.90) m/uL Hgb 11.3 L (13.0-17.5) gm/dL Hct 36.8 L (39.0-53.0) % MCV 103.7 H (80.0-100.0) fL MCH 31.8 (25.0-35.0) pg MCHC 30.7 L (31.0-37.0) g/dL RDW 15.4 (11.5-15.5) % Plt Count 202 (150-450) k/uL MPV 7.3 Neutrophils % 75 % Lymphocytes % 17 % Monocytes % 6 % Eosinophils % 0 % Basophils % 0 % Neutrophils # 4.6 (1.3-7.7) k/uL Lymphocytes # 1.0 (1.0-4.8) k/uL Monocytes # 0.4 (0-1.0) k/uL Eosinophils # 0.0 (0-0.7) k/uL Basophils # 0.0 (0-0.2) k/uL Macrocytosis Moderate PT 11.2 (10.0-12.5) sec INR 1.0 (<1.2) APTT 22.0 (22.0-30.0) sec Sodium (137-145) mmol/L Potassium (3.5-5.1) mmol/L Chloride (98-107) mmol/L Carbon Dioxide (22-30) mmol/L Anion Gap mmol/L BUN (9-20) mg/dL Creatinine (0.66-1.25) mg/dL Est GFR (CKD-EPI)AfAm (>60 ml/min/1.73 sqM) Est GFR (CKD-EPI)NonAf (>60 ml/min/1.73 sqM) Glucose (74-99) mg/dL POC Glucose (mg/dL) 57 L (70-110) mg/dL POC Glu Strip Cleaner ID [place], [place] Plasma Lactic Acid Mark (0.7-2.0) mmol/L Calcium (8.4-10.2) mg/dL Magnesium (1.6-2.3) mg/dL Total Bilirubin (0.2-1.3) mg/dL AST (17-59) U/L ALT (4-49) U/L Alkaline Phosphatase (38-126) U/L Creatine Kinase (55-170) U/L Total Protein (6.3-8.2) g/dL Albumin (3.5-5.0) g/dL Urine Color Urine Appearance (Clear) Urine pH (5.0-8.0) Ur Specific [place] (1.001-1.035) Urine Protein (Negative) Urine Glucose (UA) (Negative) Urine Ketones (Negative) Urine Blood (Negative) Urine Nitrite (Negative) Urine Bilirubin (Negative) Urine Urobilinogen (<2.0) mg/dL Ur Leukocyte Esterase (Negative) Urine RBC (0-5) /hpf Urine WBC (0-5) /hpf 04/30/24 04/30/24 04/30/24 Range/Units 13:31 13:31 13:31 WBC (3.8-10.6) k/uL RBC (4.30-5.90) m/uL Hgb (13.0-17.5) gm/dL Hct (39.0-53.0) % MCV (80.0-100.0) fL MCH (25.0-35.0) pg MCHC (31.0-37.0) g/dL RDW (11.5-15.5) % Plt Count (150-450) k/uL MPV Neutrophils % % Lymphocytes % % Monocytes % % Eosinophils % % Basophils % % Neutrophils # (1.3-7.7) k/uL Lymphocytes # (1.0-4.8) k/uL Monocytes # (0-1.0) k/uL Eosinophils # (0-0.7) k/uL Basophils # (0-0.2) k/uL Macrocytosis PT (10.0-12.5) sec INR (<1.2) APTT (22.0-30.0) sec Sodium 137 (137-145) mmol/L Potassium 5.2 H (3.5-5.1) mmol/L Chloride 97 L (98-107) mmol/L Carbon Dioxide 30 (22-30) mmol/L Anion Gap 10 mmol/L BUN 81 H (9-20) mg/dL Creatinine 6.78 H (0.66-1.25) mg/dL Est GFR (CKD-EPI)AfAm 8 (>60 ml/min/1.73 sqM) Est GFR (CKD-EPI)NonAf 7 (>60 ml/min/1.73 sqM) Glucose 78 (74-99) mg/dL POC Glucose (mg/dL) (70-110) mg/dL POC Glu Strip Cleaner ID Plasma Lactic Acid Mark 0.9 (0.7-2.0) mmol/L Calcium 9.6 (8.4-10.2) mg/dL Magnesium 2.3 (1.6-2.3) mg/dL Total Bilirubin 0.6 (0.2-1.3) mg/dL AST 24 (17-59) U/L ALT <6 (4-49) U/L Alkaline Phosphatase 95 (38-126) U/L Creatine Kinase 44 L (55-170) U/L Total Protein 6.4 (6.3-8.2) g/dL Albumin 3.8 (3.5-5.0) g/dL Urine Color Colorless Urine Appearance Clear (Clear) Urine pH 7.5 (5.0-8.0) Ur Specific [place] 1.013 (1.001-1.035) Urine Protein 1+ H (Negative) Urine Glucose (UA) Negative (Negative) Urine Ketones Negative (Negative) Urine Blood Negative (Negative) Urine Nitrite Negative (Negative) Urine Bilirubin Negative (Negative) Urine Urobilinogen <2.0 (<2.0) mg/dL Ur Leukocyte Esterase Negative (Negative) Urine RBC <1 (0-5) /hpf Urine WBC 1 (0-5) /hpf 04/30/24 Range/Units 14:55 WBC (3.8-10.6) k/uL RBC (4.30-5.90) m/uL Hgb (13.0-17.5) gm/dL Hct (39.0-53.0) % MCV (80.0-100.0) fL MCH (25.0-35.0) pg MCHC (31.0-37.0) g/dL RDW (11.5-15.5) % Plt Count (150-450) k/uL MPV Neutrophils % % Lymphocytes % % Monocytes % % Eosinophils % % Basophils % % Neutrophils # (1.3-7.7) k/uL Lymphocytes # (1.0-4.8) k/uL Monocytes # (0-1.0) k/uL Eosinophils # (0-0.7) k/uL Basophils # (0-0.2) k/uL Macrocytosis PT (10.0-12.5) sec INR (<1.2) APTT (22.0-30.0) sec Sodium (137-145) mmol/L Potassium (3.5-5.1) mmol/L Chloride (98-107) mmol/L Carbon Dioxide (22-30) mmol/L Anion Gap mmol/L BUN (9-20) mg/dL Creatinine (0.66-1.25) mg/dL Est GFR (CKD-EPI)AfAm (>60 ml/min/1.73 sqM) Est GFR (CKD-EPI)NonAf (>60 ml/min/1.73 sqM) Glucose (74-99) mg/dL POC Glucose (mg/dL) 99 (70-110) mg/dL POC Glu Strip Cleaner ID Maryjo Sheets Plasma Lactic Acid Mark (0.7-2.0) mmol/L Calcium (8.4-10.2) mg/dL Magnesium (1.6-2.3) mg/dL Total Bilirubin (0.2-1.3) mg/dL AST (17-59) U/L ALT (4-49) U/L Alkaline Phosphatase (38-126) U/L Creatine Kinase (55-170) U/L Total Protein (6.3-8.2) g/dL Albumin (3.5-5.0) g/dL Urine Color Urine Appearance (Clear) Urine pH (5.0-8.0) Ur Specific [place] (1.001-1.035) Urine Protein (Negative) Urine Glucose (UA) (Negative) Urine Ketones (Negative) Urine Blood (Negative) Urine Nitrite (Negative) Urine Bilirubin (Negative) Urine Urobilinogen (<2.0) mg/dL Ur Leukocyte Esterase (Negative) Urine RBC (0-5) /hpf Urine WBC (0-5) /hpf - Radiology Data Radiology results: report reviewed, image reviewed Disposition Clinical Impression: Fall Disposition: HOME SELF-CARE Instructions (If sedation given, give patient instructions): Fall Prevention for Older Adults (ED) Additional Instructions: Return to the emergency department with any new, worsening, or concerning symptoms. Follow up with your primary care provider in 1-2 days. Is patient prescribed a controlled substance at d/c from ED?: No Referrals: Kimberly Gerardo MD [Primary Care Provider] - 1-2 days Time of Disposition: 17:46
[2024-04-30 13:26] LABS: Glucose,Whole Blood 57 mg/dL (70-110)
[2024-04-30 13:45] LABS: Basophils % (A) 0 %; Eosinophils % (A) 0 %; HCT 36.8 % (39.0-53.0); HGB 11.3 gm/dL (13.0-17.5); Lymphocytes % (A) 17 %; MCH 31.8 pg (25.0-35.0); MCHC 30.7 g/dL (31.0-37.0); MCV 103.7 fL (80.0-100.0); Macrocytosis Moderate; Mean Platelet Volume 7.3; Monocytes # (A) 0.4 k/uL (0-1.0); Monocytes % (A) 6 %; Neutrophils # (A) 4.6 k/uL (1.3-7.7); Neutrophils % (A) 75 %; Platelet Count 202 k/uL (150-450); RBC 3.55 m/uL (4.30-5.90); RDW 15.4 % (11.5-15.5); WBC 6.1 k/uL (3.8-10.6)
[2024-04-30 13:57] LABS: Prothrombin Time 11.2 sec (10.0-12.5)
[2024-04-30 14:06] LABS: ALT <6 U/L (4-49); AST 24 U/L (17-59); African American GFR (CKD) 8 (>60 ml/min/1.73 sqM); Albumin 3.8 g/dL (3.5-5.0); Alkaline Phosphatase 95 U/L (38-126); Anion Gap 10 mmol/L; Blood Urea Nitrogen 81 mg/dL (9-20); Calcium 9.6 mg/dL (8.4-10.2); Carbon Dioxide 30 mmol/L (22-30); Chloride 97 mmol/L (98-107); Creatine Kinase 44 U/L (55-170); Glucose 78 mg/dL (74-99); Magnesium 2.3 mg/dL (1.6-2.3); Non-African American GFR(CKD) 7 (>60 ml/min/1.73 sqM); Potassium 5.2 mmol/L (3.5-5.1); Sodium 137 mmol/L (137-145); Total Bilirubin 0.6 mg/dL (0.2-1.3); Total Protein 6.4 g/dL (6.3-8.2)
--- NOTE | 2024-04-30 14:33 | XR ---
EXAMINATION TYPE: XR shoulder complete RT DATE OF EXAM: 04/30/2024 2:13 PM CLINICAL INDICATION:Male, 78 years old with history of Fall; [facility] COMPARISON: None TECHNIQUE: XR shoulder complete RT; examined in AP, internally rotated and scapular Y projections. FINDINGS: No evidence of acute osseous pathology, joint dislocation, or soft tissue swelling. The remaining po rtions of the visualized chest are unremarkable. Degeneration changes of the acromion, distal clavic le with osteophyte formation. There is osteophyte formation of the glenoid and humeral head. There is joint space narrowing of glenohumeral joint. IMPRESSION: 1. No acute osseous pathology. 2. Moderate shoulder osteoarthrosis.
--- NOTE | 2024-04-30 14:33 | XR ---
EXAMINATION TYPE: XR chest 2V DATE OF EXAM: 04/30/2024 2:13 PM CLINICAL INDICATION:Male, 78 years old with history of Weakness; [facility] COMPARISON: Chest radiographs from 01/23/2024 TECHNIQUE: XR chest 2V Frontal and lateral views of the chest. FINDINGS: Lungs/Pleura: There is no evidence of pleural effusion, focal consolidation, or pneumothorax. Pulmonary vascularity: Unremarkable. Heart/mediastinum: Cardiomediastinal silhouette is unremarkable. Musculoskeletal: No acute osseous pathology. IMPRESSION: No acute cardiopulmonary disease/process.
--- NOTE | 2024-04-30 14:36 | XR ---
EXAMINATION TYPE: XR Hip LT and AP Pelvis DATE OF EXAM: 04/30/2024 2:14 PM CLINICAL INDICATION:Male, 78 years old with history of Fall; COMPARISON: None. TECHNIQUE: XR Hip LT and AP Pelvis; hip was examined in the frontal and lateral projections and a AP pelvis. FINDINGS: No evidence for acute process, joint dislocation or significant soft tissue swelling. Osteo phyte formation of the superior acetabulum of the hip. There is mild joint space narrowing. IMPRESSION: 1. No evidence for acute process. 2. Moderate hip osteoarthrosis.
[2024-04-30 14:57] LABS: Glucose,Whole Blood 99 mg/dL (70-110)
[2024-04-30 17:11] LABS: Appearance,Urine Clear (Clear); Bilirubin,Urine Negative (Negative); Blood,Urine Negative (Negative); Color,Urine Colorless; Glucose,Urine (UA) Negative (Negative); Ketones,Urine Negative (Negative); Leukocyte Esterase,Urine Negative (Negative); Nitrite,Urine Negative (Negative); PH, Urine 7.5 (5.0-8.0); Protein,Urine 1+ (Negative); RBC,Urine <1 /hpf (0-5); Specific Gravity,Urine 1.013 (1.001-1.035); Urobilinogen,Urine <2.0 mg/dL (<2.0); WBC,Urine 1 /hpf (0-5)
[2024-04-30 18:34] VITALS: BP 149/92; PULSE 73; RESP 18; TEMP 98.1
== END 2024-04-30 18:34 | disposition home or self-care (01) ==
LOC: EC 12:53
DX: M16.12 Unilateral primary osteoarthritis, left hip (principal); M25.511 Pain in right shoulder; Z87.891 Personal history of nicotine dependence; W01.0XXA Fall on same level from slipping, tripping and stumbling without subsequent striking against object, initial encounter
CPT/HCPCS: 36415; 71046; 73502; 80053; 81001; 82550; 83605; 83735; 85025; 85610; 85730; 93005; 99284

== ENCOUNTER 2024-05-01 12:19 | Inpatient (IN) | payer MEDICARE, BC ==
[2024-05-01 13:49] LABS: Basophils % (A) 0 %; Eosinophils % (A) 1 %; HCT 35.9 % (39.0-53.0); HGB 11.3 gm/dL (13.0-17.5); Lymphocytes # (A) 1.3 k/uL (1.0-4.8); Lymphocytes % (A) 29 %; MCH 32.2 pg (25.0-35.0); MCHC 31.4 g/dL (31.0-37.0); MCV 102.5 fL (80.0-100.0); Macrocytosis Slight; Mean Platelet Volume 7.7; Monocytes # (A) 0.4 k/uL (0-1.0); Monocytes % (A) 9 %; Neutrophils # (A) 2.7 k/uL (1.3-7.7); Neutrophils % (A) 59 %; Platelet Count 198 k/uL (150-450); RDW 15.7 % (11.5-15.5); WBC 4.6 k/uL (3.8-10.6)
[2024-05-01 14:00] LABS: ALT 8 U/L (4-49); AST 21 U/L (17-59); African American GFR (CKD) 18 (>60 ml/min/1.73 sqM); Albumin 3.6 g/dL (3.5-5.0); Alkaline Phosphatase 93 U/L (38-126); Anion Gap 6 mmol/L; Blood Urea Nitrogen 34 mg/dL (9-20); Calcium 8.7 mg/dL (8.4-10.2); Carbon Dioxide 34 mmol/L (22-30); Chloride 96 mmol/L (98-107); Creatine Kinase 40 U/L (55-170); Glucose 169 mg/dL (74-99); Non-African American GFR(CKD) 15 (>60 ml/min/1.73 sqM); Potassium 4.1 mmol/L (3.5-5.1); Sodium 136 mmol/L (137-145); Total Bilirubin 0.5 mg/dL (0.2-1.3)
[2024-05-01 14:08] LABS: NT-Pro-B-Type Natriuretic Pept 6280 pg/mL
--- NOTE | 2024-05-01 14:20 | XR ---
EXAMINATION TYPE: XR foot complete LT DATE OF EXAM: 05/01/2024 2:07 PM CLINICAL INDICATION:Male, 78 years old with history of fall, bruising, pain; COMPARISON: None TECHNIQUE: XR foot complete LT examined in the AP, oblique, and lateral projections. FINDINGS: Diffuse osseous demineralization. No evidence of any acute osseous pathology. No evidence of soft tissue swelling. Multifocal degenera tion changes throughout the joints of the foot with osteophyte formation and joint space narrowing. C alcaneal plantar spurring is present. IMPRESSION: 1. No evidence of acute fracture. 2. Multifocal degeneration changes throughout the joints of the foot.
--- NOTE | 2024-05-01 14:50 | ED ---
Weakness HPI - General Chief complaint: Weakness Stated complaint: Fall Source: patient Mode of arrival: wheelchair Limitations: no limitations - History of Present Illness Initial comments: 78-year-old man with past medical history of Parkinson's, end-stage renal disea se on hemodialysis who presents to the emergency department with weakness. Son is at bedside and helps provide the history. States that the patient has had numerous near falls this morning. It is because he is having significant pain in his left foot after he had a fall yesterday. Patient was seen in the emergency department and had x-rays performed of his shoulder, chest and pelvis. Patient did not mention foot pain and therefore x-ray was not performed. Patient states due to his tremors and the foot pain that he cannot keep his balance. Family is concerned that he is going to fall again. He did go to dialysis this morning. Patient previously missed dialysis on Saturday due to bad back pain. Family states that he just got out of rehab on Saturday. They are concerned that the patient can no longer care for himself. No other alleviating, precipitating or modifying factors - Related Data Home Medications Medication Instructions Recorded Confirmed Levothyroxine Sodium [Synthroid] 200 mcg PO AC-BRKFST 01/29/16 05/01/24 Escitalopram [Lexapro] 20 mg PO DAILY 11/06/19 05/01/24 Fenofibrate 54 mg PO W/SUPPER 02/19/22 05/01/24 lamoTRIgine [LaMICtal] 150 mg PO W/SUPPER 01/30/23 05/01/24 Carbidopa-Levodopa 25-250 mg 1 tab PO QID 07/09/23 05/01/24 [Sinemet 25-250 mg] Divalproex Sodium [Depakote] 1,000 mg PO W/SUPPER 07/09/23 05/01/24 Divalproex [Depakote] 250 mg PO W/SUPPER 07/09/23 05/01/24 Folic Acid 0.8 mg PO DAILY 11/06/23 05/01/24 Lovastatin [Mevacor] 40 mg PO W/SUPPER 11/06/23 05/01/24 Mirtazapine 7.5 mg PO HS 11/06/23 05/01/24 Ferrous Sulfate [Iron (65 MG 325 mg PO DAILY 11/29/23 05/01/24 Elemental)] Calcium Acetate 667mg Caps 667 mg PO AC-TID 01/27/24 05/01/24 Omeprazole 20 mg PO DAILY 01/27/24 05/01/24 Cyanocobalamin (Vitamin B-12) 1,000 mcg PO DAILY 03/26/24 05/01/24 [Vitamin B-12] Acetaminophen [Tylenol] 325 - 650 mg PO Q4H PRN 05/01/24 05/01/24 Insulin Aspart [NovoLOG Flexpen] See Protocol SQ AC-TID 05/01/24 05/01/24 Insulin Detemir [Levemir Flexpen] 8 units SQ HS 05/01/24 05/01/24 Previous Rx's Medication Instructions Recorded Baclofen [Lioresal] 5 mg PO BID PRN 30 Days #60 tab 03/31/24 Midodrine HCl [ProAmatine] 10 mg PO MOWEFR PRN #0 05/05/24 Allergies Allergy/AdvReac Type Severity Reaction Status Date / Time codeine AdvReac Sensitive Verified 05/01/24 14:38 to meds,slurred speech, unsteady on feet, confused Review of Systems ROS Statement: Those systems with pertinent positive or pertinent negative responses have been documented in the HPI. ROS Other: All systems not noted in ROS Statement are negative. Past Medical History Past Medical History: Diabetes Mellitus, Hearing Disorder / Deafness, Hyperlipidemia, Osteoarthritis (OA), Renal Disease, Sleep Apnea/CPAP/BIPAP, Thyroid Disorder Additional Past Medical History / Comment(s): Heart murmur, Parkinson's, CPAP use, hard of hearing; dailysis MWF, right arm fistula History of Any Multi-Drug Resistant Organisms: None Reported Past Surgical History: Orthopedic Surgery, Tonsillectomy Additional Past Surgical History / Comment(s): Bilateral knee surgery, left foot bone spur, right cataract removed, left shoulder arthroscopy, peritoneal dialysis catheter placed now removed. fistula placement for dialysis Past Anesthesia/Blood Transfusion Reactions: Previous Problems w/ Anesthesia Additional Past Anesthesia/Blood Transfusion Reaction / Comment(s): slow to wake and glucose tends to drop Past Psychological History: Anxiety, Bipolar, Depression Smoking Status: Former smoker Past Alcohol Use History: None Reported Past Drug Use History: None Reported - Past Family History Father Family Medical History: Cancer Mother Additional Family Medical History / Comment(s): Mother at age 74 from heart failure. Brother(s) Additional Family Medical History / Comment(s): Patient has one brother and one sister both have diabetes. Patient's 3 children with no major medical problems. General Exam Limitations: no limitations General appearance: alert, in no apparent distress Head exam: Present: atraumatic, normocephalic, normal inspection Eye exam: Present: normal appearance, PERRL, EOMI. Absent: scleral icterus, conjunctival injection, periorbital swelling ENT exam: Present: normal exam, mucous membranes moist Neck exam: Present: normal inspection. Absent: tenderness, meningismus, lymphadenopathy Respiratory exam: Present: normal lung sounds bilaterally. Absent: respiratory distress, wheezes, rales, rhonchi, stridor Cardiovascular Exam: Present: regular rate, normal rhythm, normal heart sounds. Absent: systolic murmur, diastolic murmur, rubs, gallop, clicks GI/Abdominal exam: Present: soft, normal bowel sounds. Absent: distended, tenderness, guarding, rebound, rigid Extremities exam: Present: normal capillary refill, other (Ecchymosis to the second and third toe). Absent: tenderness, pedal edema, joint swelling, calf tenderness Back exam: Present: normal inspection Neurological exam: Present: alert, oriented X3, CN II-XII intact Psychiatric exam: Present: normal affect, normal mood Skin exam: Present: warm, dry, intact, normal color. Absent: rash Course Vital Signs 05/01/24 05/01/24 05/01/24 12:20 12:24 14:24 Temperature 97.9 F Pulse Rate 81 81 69 Respiratory 18 17 17 Rate Blood Pressure 90/62 116/66 121/59 O2 Sat by Pulse 100 76 L 97 Oximetry Medical Decision Making - Medical Decision Making Was pt. sent in by a medical professional or institution (, PA, PRINTING WORKER SUPERVISOR, urgent care, hospital, or jail...) When possible be specific @ -No Did you speak to anyone other than the patient for history (EMS, parent, family, police, friend...)? What history was obtained from this source @ -Spoke with the patient's son for history Did you review nursing and triage notes (agree or disagree)? Why? @ -I reviewed and agree with nursing and triage notes Were old charts reviewed (outside hosp., previous admission, EMS record, old EKG, old radiological studies, urgent care reports/EKG's, jail records)? Report findings @ -I reviewed ED visit note and imaging which was performed yesterday Differential Diagnosis (chest pain, altered mental status, abdominal pain women, abdominal pain men, vaginal bleeding, weakness, fever, dyspnea, syncope, headache, dizziness, GI bleed, back pain, seizure, CVA, palpatations, mental health, musculoskeletal)? @ -Differential Weakness: Hypoglycemia, shock, sepsis, hyponatremia, anemia, infection, MD, ETOH, adverse medicine reaction, overdose, stroke, this is not meant to be an all-inclusive list. EKG interpreted by me (3pts min.). @ -Yes and demonstrates sinus rhythm with a rate of 70. Parable 198. QRS 100. QTc of 424. No acute ST segment elevations or depressions X-rays interpreted by me (1pt min.). @ -Yes and demonstrates no acute fracture CT interpreted by me (1pt min.). @ -None done U/S interpreted by me (1pt. min.). @ -None done What testing was considered but not performed or refused? (CT, X-rays, U/S, labs )? Why? @ -None What meds were considered but not given or refused? Why? @ -None Did you discuss the management of the patient with other professionals (professionals i.e. , PA, PRINTING WORKER SUPERVISOR, lab, RT, psych nurse, oncology social work, military lawyer, teacher, legal officer, rn case mgr)? Give summary @ -Spoke with rn case mgr who is not aware how she can get the patient to rehab from the ER. I spoke with Dr. Gerardo for admission Was smoking cessation discussed for >3mins.? @ -No Was critical care preformed (if so, how long)? @ -No Were there social determinants of health that impacted care today? How? (Michael elessness, low income, unemployed, alcoholism, drug addiction, transportation, low edu. Level, literacy, decrease access to med. care, alf, rehab)? @ -No Was there de-escalation of care discussed even if they declined (Discuss DNR or withdrawal of care, Hospice)? DNR status @ -No What co-morbidities impacted this encounter? (DM, HTN, Smoking, COPD, CAD, Cancer, CVA, ARF, Chemo, Hep., AIDS, mental health diagnosis, sleep apnea, morbid obesity)? @ -Parkinson's Was patient admitted / discharged? Hospital course, mention meds given and route, prescriptions, significant lab abnormalities, going to OR and other pertinent info. @ -Upon arrival patient seen and evaluated in room 3. Thorough history and physical exam was performed. Patient is continuing to have falls due to weakness. Son does not think that the patient's current living facility is safe for him. I did x-ray the patient's toe that he is complaining of significant pain. No acute fractures. Spoke with Dr. Gerardo who will admit the patient Undiagnosed new problem with uncertain prognosis? @ -No Drug Therapy requiring intensive monitoring for toxicity (Heparin, Nitro, Insulin, Cardizem)? @ -No Were any procedures done? @ -No Diagnosis/symptom? @ -Multiple falls, left foot pain, history of Parkinson's Acute, or Chronic, or Acute on Chronic? @ -Acute on chronic Uncomplicated (without systemic symptoms) or Complicated (systemic symptoms)? @ -Complicated Side effects of treatment? @ -No Exacerbation, Progression, or Severe Exacerbation? @ -No Poses a threat to life or bodily function? How? (Chest pain, USA, MD, pneumonia, PE, COPD, DKA, ARF, appy, cholecystitis, CVA, Diverticulitis, Homicidal, Suicidal, threat to staff... and all critical care pts) @ -No - Lab Data Result diagrams: 05/05/24 07:20 05/05/24 07:20 Lab Results 05/01/24 05/01/24 05/01/24 Range/Units 13:39 13:39 13:39 WBC 4.6 (3.8-10.6) k/uL RBC 3.50 L (4.30-5.90) m/uL Hgb 11.3 L (13.0-17.5) gm/dL Hct 35.9 L (39.0-53.0) % MCV 102.5 H (80.0-100.0) fL MCH 32.2 (25.0-35.0) pg MCHC 31.4 (31.0-37.0) g/dL RDW 15.7 H (11.5-15.5) % Plt Count 198 (150-450) k/uL MPV 7.7 Immature Gran % (Auto) % Absolute Nucleated RBC % Neutrophils % 59 % Lymphocytes % 29 % Monocytes % 9 % Eosinophils % 1 % Basophils % 0 % Immature Gran # (0.00-0.04) X 10*3/uL Neutrophils # 2.7 (1.3-7.7) k/uL Lymphocytes # 1.3 (1.0-4.8) k/uL Monocytes # 0.4 (0-1.0) k/uL Eosinophils # 0.0 (0-0.7) k/uL Basophils # 0.0 (0-0.2) k/uL NRBC/100 WBC Diff (0.00-0.01) X 10*3/uL Macrocytosis Slight Sodium 136 L (137-145) mmol/L Potassium 4.1 (3.5-5.1) mmol/L Chloride 96 L (98-107) mmol/L Carbon Dioxide 34 H (22-30) mmol/L Anion Gap 6 mmol/L BUN 34 H (9-20) mg/dL Creatinine 3.60 H (0.66-1.25) mg/dL Est GFR (CKD-EPI) (>=60) Est GFR (CKD-EPI)AfAm 18 (>60 ml/min/1.73 sqM) Est GFR (CKD-EPI)NonAf 15 (>60 ml/min/1.73 sqM) BUN/Creatinine Ratio (12.00-20.00) Ratio Glucose 169 H (74-99) mg/dL POC Glucose (mg/dL) (70-110) mg/dL POC Glu Medical Assistant Instructor ID Estimated Ave Glu mg/dL mg/dL Hemoglobin A1c (<=6.0) % Plasma Lactic Acid Mark 1.4 (0.7-2.0) mmol/L Calcium 8.7 (8.4-10.2) mg/dL Phosphorus (2.4-5.1) mg/dL Total Bilirubin 0.5 (0.2-1.3) mg/dL AST 21 (17-59) U/L ALT 8 (4-49) U/L Alkaline Phosphatase 93 (38-126) U/L Creatine Kinase 40 L (55-170) U/L NT-Pro-B Natriuret Pep 6280 pg/mL Total Protein 6.0 L (6.3-8.2) g/dL Albumin 3.6 (3.5-5.0) g/dL Globulin (1.6-3.3) g/dL Albumin/Globulin Ratio (1.60-3.17) Ratio 05/01/24 05/01/24 05/02/24 Range/Units 17:10 20:05 02:33 WBC (3.8-10.6) k/uL RBC (4.30-5.90) m/uL Hgb (13.0-17.5) gm/dL Hct (39.0-53.0) % MCV (80.0-100.0) fL MCH (25.0-35.0) pg MCHC (31.0-37.0) g/dL RDW (11.5-15.5) % Plt Count (150-450) k/uL MPV Immature Gran % (Auto) % Absolute Nucleated RBC % Neutrophils % % Lymphocytes % % Monocytes % % Eosinophils % % Basophils % % Immature Gran # (0.00-0.04) X 10*3/uL Neutrophils # (1.3-7.7) k/uL Lymphocytes # (1.0-4.8) k/uL Monocytes # (0-1.0) k/uL Eosinophils # (0-0.7) k/uL Basophils # (0-0.2) k/uL NRBC/100 WBC Diff (0.00-0.01) X 10*3/uL Macrocytosis Sodium (137-145) mmol/L Potassium (3.5-5.1) mmol/L Chloride (98-107) mmol/L Carbon Dioxide (22-30) mmol/L Anion Gap mmol/L BUN (9-20) mg/dL Creatinine (0.66-1.25) mg/dL Est GFR (CKD-EPI) (>=60) Est GFR (CKD-EPI)AfAm (>60 ml/min/1.73 sqM) Est GFR (CKD-EPI)NonAf (>60 ml/min/1.73 sqM) BUN/Creatinine Ratio (12.00-20.00) Ratio Glucose (74-99) mg/dL POC Glucose (mg/dL) 151 H 110 43 L* (70-110) mg/dL POC Glu Medical Assistant Instructor ID devorah Tavares, Balaji Spencer, Balaji [address]imated [address] Glu mg/dL mg/dL Hemoglobin A1c (<=6.0) % Plasma Lactic Acid Mark (0.7-2.0) mmol/L Calcium (8.4-10.2) mg/dL Phosphorus (2.4-5.1) mg/dL Total Bilirubin (0.2-1.3) mg/dL AST (17-59) U/L ALT (4-49) U/L Alkaline Phosphatase (38-126) U/L Creatine Kinase (55-170) U/L NT-Pro-B Natriuret Pep pg/mL Total Protein (6.3-8.2) g/dL Albumin (3.5-5.0) g/dL Globulin (1.6-3.3) g/dL Albumin/Globulin Ratio (1.60-3.17) Ratio 05/02/24 05/02/24 05/02/24 Range/Units 03:06 04:48 04:48 WBC 4.42 L (3.8-10.6) k/uL RBC 3.05 L (4.30-5.90) m/uL Hgb 9.9 L (13.0-17.5) gm/dL Hct 31.2 L (39.0-53.0) % MCV 102.3 H (80.0-100.0) fL MCH 32.5 H (25.0-35.0) pg MCHC 31.7 L (31.0-37.0) g/dL RDW 15.5 H (11.5-15.5) % Plt Count 128 L (150-450) k/uL MPV 9.0 L Immature Gran % (Auto) 0.20 % Absolute Nucleated RBC 0 % Neutrophils % 49.6 % Lymphocytes % 39.8 % Monocytes % 8.6 % Eosinophils % 1.1 % Basophils % 0.7 % Immature Gran # 0.01 (0.00-0.04) X 10*3/uL Neutrophils # 2.19 (1.3-7.7) k/uL Lymphocytes # 1.76 (1.0-4.8) k/uL Monocytes # 0.38 (0-1.0) k/uL Eosinophils # 0.05 (0-0.7) k/uL Basophils # 0.03 (0-0.2) k/uL NRBC/100 WBC Diff 0 (0.00-0.01) X 10*3/uL Macrocytosis Sodium (137-145) mmol/L Potassium (3.5-5.1) mmol/L Chloride (98-107) mmol/L Carbon Dioxide (22-30) mmol/L Anion Gap mmol/L BUN (9-20) mg/dL Creatinine (0.66-1.25) mg/dL Est GFR (CKD-EPI) (>=60) Est GFR (CKD-EPI)AfAm (>60 ml/min/1.73 sqM) Est GFR (CKD-EPI)NonAf (>60 ml/min/1.73 sqM) BUN/Creatinine Ratio (12.00-20.00) Ratio Glucose (74-99) mg/dL POC Glucose (mg/dL) 106 (70-110) mg/dL POC Glu Medical Assistant Instructor ID Balaji Spencer [address]imated [address] Glu mg/dL 128 mg/dL Hemoglobin A1c 6.1 H (<=6.0) % Plasma Lactic Acid Mark (0.7-2.0) mmol/L Calcium (8.4-10.2) mg/dL Phosphorus (2.4-5.1) mg/dL Total Bilirubin (0.2-1.3) mg/dL AST (17-59) U/L ALT (4-49) U/L Alkaline Phosphatase (38-126) U/L Creatine Kinase (55-170) U/L NT-Pro-B Natriuret Pep pg/mL Total Protein (6.3-8.2) g/dL Albumin (3.5-5.0) g/dL Globulin (1.6-3.3) g/dL Albumin/Globulin Ratio (1.60-3.17) Ratio 05/02/24 05/02/24 05/02/24 Range/Units 04:48 07:14 12:13 WBC (3.8-10.6) k/uL RBC (4.30-5.90) m/uL Hgb (13.0-17.5) gm/dL Hct (39.0-53.0) % MCV (80.0-100.0) fL MCH (25.0-35.0) pg MCHC (31.0-37.0) g/dL RDW (11.5-15.5) % Plt Count (150-450) k/uL MPV Immature Gran % (Auto) % Absolute Nucleated RBC % Neutrophils % % Lymphocytes % % Monocytes % % Eosinophils % % Basophils % % Immature Gran # (0.00-0.04) X 10*3/uL Neutrophils # (1.3-7.7) k/uL Lymphocytes # (1.0-4.8) k/uL Monocytes # (0-1.0) k/uL Eosinophils # (0-0.7) k/uL Basophils # (0-0.2) k/uL NRBC/100 WBC Diff (0.00-0.01) X 10*3/uL Macrocytosis Sodium 138 (137-145) mmol/L Potassium 4.9 (3.5-5.1) mmol/L Chloride 98 (98-107) mmol/L Carbon Dioxide 27.7 (22-30) mmol/L Anion Gap 12.30 H mmol/L BUN 44.9 H (9-20) mg/dL Creatinine 4.8 H (0.66-1.25) mg/dL Est GFR (CKD-EPI) 12 L (>=60) Est GFR (CKD-EPI)AfAm (>60 ml/min/1.73 sqM) Est GFR (CKD-EPI)NonAf (>60 ml/min/1.73 sqM) BUN/Creatinine Ratio 9.35 L (12.00-20.00) Ratio Glucose 189 H (74-99) mg/dL POC Glucose (mg/dL) 117 H 265 H (70-110) mg/dL POC Glu Medical Assistant Instructor devorah Cruz heather [address] Glu mg/dL mg/dL Hemoglobin A1c (<=6.0) % Plasma Lactic Acid Mark (0.7-2.0) mmol/L Calcium 8.6 L (8.4-10.2) mg/dL Phosphorus (2.4-5.1) mg/dL Total Bilirubin (0.2-1.3) mg/dL AST (17-59) U/L ALT (4-49) U/L Alkaline Phosphatase (38-126) U/L Creatine Kinase (55-170) U/L NT-Pro-B Natriuret Pep pg/mL Total Protein (6.3-8.2) g/dL Albumin (3.5-5.0) g/dL Globulin (1.6-3.3) g/dL Albumin/Globulin Ratio (1.60-3.17) Ratio 05/02/24 05/02/24 05/03/24 Range/Units 17:12 20:24 06:06 WBC (3.8-10.6) k/uL RBC (4.30-5.90) m/uL Hgb (13.0-17.5) gm/dL Hct (39.0-53.0) % MCV (80.0-100.0) fL MCH (25.0-35.0) pg MCHC (31.0-37.0) g/dL RDW (11.5-15.5) % Plt Count (150-450) k/uL MPV Immature Gran % (Auto) % Absolute Nucleated RBC % Neutrophils % % Lymphocytes % % Monocytes % % Eosinophils % % Basophils % % Immature Gran # (0.00-0.04) X 10*3/uL Neutrophils # (1.3-7.7) k/uL Lymphocytes # (1.0-4.8) k/uL Monocytes # (0-1.0) k/uL Eosinophils # (0-0.7) k/uL Basophils # (0-0.2) k/uL NRBC/100 WBC Diff (0.00-0.01) X 10*3/uL Macrocytosis Sodium 142 (137-145) mmol/L Potassium 5.1 (3.5-5.1) mmol/L Chloride 100 (98-107) mmol/L Carbon Dioxide 29.3 (22-30) mmol/L Anion Gap 12.70 H mmol/L BUN 54.3 H (9-20) mg/dL Creatinine 5.7 H (0.66-1.25) mg/dL Est GFR (CKD-EPI) 9 L (>=60) Est GFR (CKD-EPI)AfAm (>60 ml/min/1.73 sqM) Est GFR (CKD-EPI)NonAf (>60 ml/min/1.73 sqM) BUN/Creatinine Ratio 9.53 L (12.00-20.00) Ratio Glucose 105 (74-99) mg/dL POC Glucose (mg/dL) 78 167 H (70-110) mg/dL POC Glu Medical Assistant Instructor ID devorah Tavares Estimated Ave Glu mg/dL mg/dL Hemoglobin A1c (<=6.0) % Plasma Lactic Acid Mark (0.7-2.0) mmol/L Calcium 9.3 (8.4-10.2) mg/dL Phosphorus 3.9 (2.4-5.1) mg/dL Total Bilirubin 0.3 (0.2-1.3) mg/dL AST 18 (17-59) U/L ALT <5 L (4-49) U/L Alkaline Phosphatase 82 (38-126) U/L Creatine Kinase (55-170) U/L NT-Pro-B Natriuret Pep pg/mL Total Protein 5.3 L (6.3-8.2) g/dL Albumin 3.2 L (3.5-5.0) g/dL Globulin 2.1 (1.6-3.3) g/dL Albumin/Globulin Ratio 1.52 L (1.60-3.17) Ratio 05/03/24 05/03/24 05/03/24 Range/Units 06:06 07:22 12:10 WBC 4.24 L (3.8-10.6) k/uL RBC 3.09 L (4.30-5.90) m/uL Hgb 10.2 L (13.0-17.5) gm/dL Hct 31.6 L (39.0-53.0) % MCV 102.3 H (80.0-100.0) fL MCH 33.0 H (25.0-35.0) pg MCHC 32.3 (31.0-37.0) g/dL RDW 15.4 H (11.5-15.5) % Plt Count 121 L (150-450) k/uL MPV 9.0 L Immature Gran % (Auto) 0.20 % Absolute Nucleated RBC 0 % Neutrophils % 41.5 % Lymphocytes % 48.6 % Monocytes % 7.8 % Eosinophils % 1.2 % Basophils % 0.7 % Immature Gran # 0.01 (0.00-0.04) X 10*3/uL Neutrophils # 1.76 L (1.3-7.7) k/uL Lymphocytes # 2.06 (1.0-4.8) k/uL Monocytes # 0.33 (0-1.0) k/uL Eosinophils # 0.05 (0-0.7) k/uL Basophils # 0.03 (0-0.2) k/uL NRBC/100 WBC Diff 0 (0.00-0.01) X 10*3/uL Macrocytosis Sodium (137-145) mmol/L Potassium (3.5-5.1) mmol/L Chloride (98-107) mmol/L Carbon Dioxide (22-30) mmol/L Anion Gap mmol/L BUN (9-20) mg/dL Creatinine (0.66-1.25) mg/dL Est GFR (CKD-EPI) (>=60) Est GFR (CKD-EPI)AfAm (>60 ml/min/1.73 sqM) Est GFR (CKD-EPI)NonAf (>60 ml/min/1.73 sqM) BUN/Creatinine Ratio (12.00-20.00) Ratio Glucose (74-99) mg/dL POC Glucose (mg/dL) 90 135 H (70-110) mg/dL POC Glu Medical Assistant Instructor devorah Cruz heather [address] Glu mg/dL mg/dL Hemoglobin A1c (<=6.0) % Plasma Lactic Acid Mark (0.7-2.0) mmol/L Calcium (8.4-10.2) mg/dL Phosphorus (2.4-5.1) mg/dL Total Bilirubin (0.2-1.3) mg/dL AST (17-59) U/L ALT (4-49) U/L Alkaline Phosphatase (38-126) U/L Creatine Kinase (55-170) U/L NT-Pro-B Natriuret Pep pg/mL Total Protein (6.3-8.2) g/dL Albumin (3.5-5.0) g/dL Globulin (1.6-3.3) g/dL Albumin/Globulin Ratio (1.60-3.17) Ratio 05/03/24 05/03/24 05/04/24 Range/Units 17:11 20:02 06:07 WBC 3.7 L (3.8-10.6) k/uL RBC 3.25 L (4.30-5.90) m/uL Hgb 10.8 L (13.0-17.5) gm/dL Hct 32.6 L (39.0-53.0) % MCV 100.4 H (80.0-100.0) fL MCH 33.1 (25.0-35.0) pg MCHC 33.0 (31.0-37.0) g/dL RDW 15.4 (11.5-15.5) % Plt Count 145 L (150-450) k/uL MPV 7.8 Immature Gran % (Auto) % Absolute Nucleated RBC % Neutrophils % 43 % Lymphocytes % 48 % Monocytes % 5 % Eosinophils % 2 % Basophils % 1 % Immature Gran # (0.00-0.04) X 10*3/uL Neutrophils # 1.6 (1.3-7.7) k/uL Lymphocytes # 1.8 (1.0-4.8) k/uL Monocytes # 0.2 (0-1.0) k/uL Eosinophils # 0.1 (0-0.7) k/uL Basophils # 0.0 (0-0.2) k/uL NRBC/100 WBC Diff (0.00-0.01) X 10*3/uL Macrocytosis Slight Sodium (137-145) mmol/L Potassium (3.5-5.1) mmol/L Chloride (98-107) mmol/L Carbon Dioxide (22-30) mmol/L Anion Gap mmol/L BUN (9-20) mg/dL Creatinine (0.66-1.25) mg/dL Est GFR (CKD-EPI) (>=60) Est GFR (CKD-EPI)AfAm (>60 ml/min/1.73 sqM) Est GFR (CKD-EPI)NonAf (>60 ml/min/1.73 sqM) BUN/Creatinine Ratio (12.00-20.00) Ratio Glucose (74-99) mg/dL POC Glucose (mg/dL) 142 H 164 H (70-110) mg/dL POC Glu Medical Assistant Instructor ID AraizaMisti Brenda [address] Glu mg/dL mg/dL Hemoglobin A1c (<=6.0) % Plasma Lactic Acid Mark (0.7-2.0) mmol/L Calcium (8.4-10.2) mg/dL Phosphorus (2.4-5.1) mg/dL Total Bilirubin (0.2-1.3) mg/dL AST (17-59) U/L ALT (4-49) U/L Alkaline Phosphatase (38-126) U/L Creatine Kinase (55-170) U/L NT-Pro-B Natriuret Pep pg/mL Total Protein (6.3-8.2) g/dL Albumin (3.5-5.0) g/dL Globulin (1.6-3.3) g/dL Albumin/Globulin Ratio (1.60-3.17) Ratio 05/04/24 05/04/24 05/04/24 Range/Units 06:07 07:32 11:42 WBC (3.8-10.6) k/uL RBC (4.30-5.90) m/uL Hgb (13.0-17.5) gm/dL Hct (39.0-53.0) % MCV (80.0-100.0) fL MCH (25.0-35.0) pg MCHC (31.0-37.0) g/dL RDW (11.5-15.5) % Plt Count (150-450) k/uL MPV Immature Gran % (Auto) % Absolute Nucleated RBC % Neutrophils % % Lymphocytes % % Monocytes % % Eosinophils % % Basophils % % Immature Gran # (0.00-0.04) X 10*3/uL Neutrophils # (1.3-7.7) k/uL Lymphocytes # (1.0-4.8) k/uL Monocytes # (0-1.0) k/uL Eosinophils # (0-0.7) k/uL Basophils # (0-0.2) k/uL NRBC/100 WBC Diff (0.00-0.01) X 10*3/uL Macrocytosis Sodium 134 L (137-145) mmol/L Potassium 5.7 H (3.5-5.1) mmol/L Chloride 99 (98-107) mmol/L Carbon Dioxide 29 (22-30) mmol/L Anion Gap 6 mmol/L BUN 70 H (9-20) mg/dL Creatinine 6.08 H (0.66-1.25) mg/dL Est GFR (CKD-EPI) (>=60) Est GFR (CKD-EPI)AfAm 9 (>60 ml/min/1.73 sqM) Est GFR (CKD-EPI)NonAf 8 (>60 ml/min/1.73 sqM) BUN/Creatinine Ratio (12.00-20.00) Ratio Glucose 162 H (74-99) mg/dL POC Glucose (mg/dL) 114 H 84 (70-110) mg/dL POC Glu Medical Assistant Instructor BABATUNDE BrianneKatieon Carrie [address] Glu mg/dL mg/dL Hemoglobin A1c (<=6.0) % Plasma Lactic Acid Mark (0.7-2.0) mmol/L Calcium 8.6 (8.4-10.2) mg/dL Phosphorus (2.4-5.1) mg/dL Total Bilirubin 0.8 (0.2-1.3) mg/dL AST 27 (17-59) U/L ALT <6 (4-49) U/L Alkaline Phosphatase 68 (38-126) U/L Creatine Kinase (55-170) U/L NT-Pro-B Natriuret Pep pg/mL Total Protein 5.3 L (6.3-8.2) g/dL Albumin 2.9 L (3.5-5.0) g/dL Globulin 2.4 (1.6-3.3) g/dL Albumin/Globulin Ratio 1.2 (1.60-3.17) Ratio 05/04/24 Range/Units 16:56 WBC (3.8-10.6) k/uL RBC (4.30-5.90) m/uL Hgb (13.0-17.5) gm/dL Hct (39.0-53.0) % MCV (80.0-100.0) fL MCH (25.0-35.0) pg MCHC (31.0-37.0) g/dL RDW (11.5-15.5) % Plt Count (150-450) k/uL MPV Immature Gran % (Auto) % Absolute Nucleated RBC % Neutrophils % % Lymphocytes % % Monocytes % % Eosinophils % % Basophils % % Immature Gran # (0.00-0.04) X 10*3/uL Neutrophils # (1.3-7.7) k/uL Lymphocytes # (1.0-4.8) k/uL Monocytes # (0-1.0) k/uL Eosinophils # (0-0.7) k/uL Basophils # (0-0.2) k/uL NRBC/100 WBC Diff (0.00-0.01) X 10*3/uL Macrocytosis Sodium (137-145) mmol/L Potassium (3.5-5.1) mmol/L Chloride (98-107) mmol/L Carbon Dioxide (22-30) mmol/L Anion Gap mmol/L BUN (9-20) mg/dL Creatinine (0.66-1.25) mg/dL Est GFR (CKD-EPI) (>=60) Est GFR (CKD-EPI)AfAm (>60 ml/min/1.73 sqM) Est GFR (CKD-EPI)NonAf (>60 ml/min/1.73 sqM) BUN/Creatinine Ratio (12.00-20.00) Ratio Glucose (74-99) mg/dL POC Glucose (mg/dL) 154 H (70-110) mg/dL POC Glu Medical Assistant Instructor ID Katie Decker [address] Glu mg/dL mg/dL Hemoglobin A1c (<=6.0) % Plasma Lactic Acid Mark (0.7-2.0) mmol/L Calcium (8.4-10.2) mg/dL Phosphorus (2.4-5.1) mg/dL Total Bilirubin (0.2-1.3) mg/dL AST (17-59) U/L ALT (4-49) U/L Alkaline Phosphatase (38-126) U/L Creatine Kinase (55-170) U/L NT-Pro-B Natriuret Pep pg/mL Total Protein (6.3-8.2) g/dL Albumin (3.5-5.0) g/dL Globulin (1.6-3.3) g/dL Albumin/Globulin Ratio (1.60-3.17) Ratio Disposition Clinical Impression: Foot pain, left, Fall, ESRD on dialysis Disposition: ADMITTED IP TO THIS [facility] Condition: Stable Is patient prescribed a controlled substance at d/c from ED?: No Time of Disposition: 14:51 Decision to Admit Reason: Admit from EC Decision Date: 05/01/24 Decision Time: 14:51
[2024-05-01] MEDS ORDERED: NALOXONE 0.4 MG/ML 1 ML VIAL IV PRN (14:52)
[2024-05-01] MEDS ORDERED: ACETAMINOPHEN TAB 325 MG TAB PO PRN (15:02)
[2024-05-01] MEDS ORDERED: BACLOFEN 10 MG TAB PO PRN (15:02)
[2024-05-01] MEDS ORDERED: MIDODRINE 5 MG TAB PO PRN (15:02)
[2024-05-01] MEDS ORDERED: DEXTROSE 50% SYRINGE 50 ML IVP PRN ×2 (15:13)
--- NOTE | 2024-05-01 16:37 | P.HPIM ---
History of Present Illness H&P Date: 05/01/24 Chief Complaint: Recurrent falls/gait dysfunction/inability to ambulate. HISTORY OF PRESENT ILLNESS This is a 78 year old male patient with past medical history of hypertension, hyperlipidemia, hypothyroidism, diabetes mellitus type 2, end-stage renal di sease on hemodialysis Saturday and Saturday, Parkinson's disease, bipolar disorder, patient was recently hospitalized at [facility] last month, and he was admitted to [facility] for physical therapy rehabilitation, as a matter fact he was discharged from [facility] just past Saturday, went home patient fell at home on Saturday, but he ended up going to hemodialysis at that time, he did hurt his left foot, with increased bruising to the left big toe on the left second toe, patient is having hard time ambulating, using the walker, patient was complaining of increased back pain on Saturday he did not go to dialysis, yesterday the patient woke up in the morning try to go to the bathroom, and he fell and landed on the ground, for a few hours, his Lifeline did not work, eventually he managed to get up, patient ended up going to dialysis, he did receive full dialysis treatment, however because of his recurrent falls and generalized weakness he was referred to the ER for evaluation, apparently the patient was in the emergency department 24 hours ago after he had fallen and he was seen and evaluated by an x-ray did not show evidence of acute abnormalities, he was sent home, I received a phone call from his daughter to my office today stating that her father cannot take care of himself at home, and she wanted him to go back to [facility], patient apparently ended up going back to the ER for evaluation by physical therapy as well as by healthcare social worker, hopefully will be able to get him back to [facility] for more physical therapy and possibly for chronic care. REVIEW OF SYSTEMS Constitutional: No fever, no chills, no night sweats. No weight change. Reported weakness, fatigue. No daytime sleepiness. HEENT: No headache. No nasal drainage or congestion. No epistaxis. No sore throat. Lungs: No shortness of breath, cough, no sputum production. No wheezing. Cardiovascular: No chest pain, no lower extremity edema. No palpitations. No paroxysmal nocturnal dyspnea. No orthopnea. No lightheadedness or dizziness. No syncopal episodes. Abdominal: no abdominal pain. No nausea, vomiting. Had diarrhea. positive for constipation. No bloody or tarry stools. positive for loss of appetite. Genitourinary: No dysuria, increased frequency, urgency. No urinary retention. Musculoskeletal: No myalgias. Reported muscle weakness, reported gait dysfuncti on with chronic shuffling gait secondary to Parkinson's, reported frequent falls. positive for back pain and neck pain. Positive for left foot pain. Integumentary: No wounds, no lesions. No rash or pruritus. positive for bruising. No change in hair or nails. Neurologic: No aphasia. No facial droop. No change in mentation. No head injury. No headache. No paralysis. No paresthesia. Psychiatric: Reported depression. No anxiety. Endocrine: No abnormal blood sugars. No weight change. No excessive sweating or thirst. No cold intolerance. MEDICAL HISTORY Hypertension Hyperlipidemia Hypothyroidism Diabetes mellitus type 2 End-stage renal disease on hemodialysis Saturday Parkinson's disease Bipolar disorder. SURGICAL HISTORY Left knee arthroscopically Left foot bone spur Left cataract surgery Left shoulder arthroscopically Right arm AV fistula Right groin Mg catheter. SOCIAL HISTORY Patient was a smoker one pack per day for 20 years ago quit 40 years ago. No alcohol use, no illicit drug use or marijuana use. He lives alone in senior housing. He normally uses a rolling walker for ambulation FAMILY HISTORY Father at age 73 from lung cancer with history of diabetes. Mother at age 74 from CHF. Brother is alive with diabetes. Sister is alive with diabetes . Patient has 2 daughters with no major medical problems. PHYSICAL EXAMINATION Gen: This is a 78-year-old male. He is resting in bed appears to be fairly comfortable. HEENT: Head is atraumatic, normocephalic. Pupils equal, round. Sclerae is anicteric. NECK: Supple. No JVD. No lymphadenopathy. No thyromegaly. LUNGS: Clear to auscultation. No wheezes or rhonchi. No intercostal retractions. HEART: Regular rate and rhythm. 2/6 systolic murmur at the left sternal border, no S3, no S4. ABDOMEN: Soft, non tender Bowel sounds are present. No masses.. EXTREMITIES: No pedal edema. No calf tenderness. Dorsalis pedis posterior bilaterally, minimal bruising to the left foot on the dorsal aspect of the left big toe on the left second toe. Tender to palpation. NEUROLOGICAL: Patient is awake, alert and oriented x2. Cranial nerves 2 through 12 are grossly intact. Deep tendon reflexes 2+ symmetrical, muscle power 3/5 in bilateral upper and lower extremities ASSESSMENT AND PLAN 1. Recurrent falls with acute pain in the left foot without evidence of acute fracture. Continue patient on current pain management, physical therapy evalua tion in the next 24 hours, healthcare social worker consultation for possible subacute rehabilitation or ECF for chronic care. 2. End-stage renal disease on Saturday and Saturday patient missed dialysis treatment twice consult with Dr. Scott veliz. Patient did get his hemodialysis today. 3. Parkinson's disease. Consult with neurology. Patient is currently on Sinemet 36649 milligrams 4 times daily. 4. Hypertension and hypertensive cardiovascular disease. Patient not currently on medications. No documented episodes of hypotension 5. Hyperlipidemia. Continue atorvastatin 10 mg at bedtime, fenofibrate 54 mg at bedtime. 6. Hypothyroidism. Continue levothyroxine 200 g daily . 7. Diabetes mellitus type 2. With recent A1c 7.0. Continue NovoLog scale before meals and at bedtime. 8. Bipolar disorder. Patient is on Depakote 1250 mg po qhs and we will continue with Lamictal 150 mg po daily and Lexparo 20 mg po daily 9. 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 Continue ferrous sulfate 325 mg daily. 10. DVT prophylaxis. Heparin subcu 5000 units every 12 hours. 11. GI prophylaxis. Pepcid 20 mg po daily 12. Orthostatic hypotension continue patient on midodrine 10 mg orally Saturday and Saturday prior to dialysis. 13. No code. 14. Admit to inpatient, estimated length of stay 2 midnights Past Medical History Past Medical History: Diabetes Mellitus, Hearing Disorder / Deafness, Hyperlipidemia, Osteoarthritis (OA), Renal Disease, Sleep Apnea/CPAP/BIPAP, Thyroid Disorder Additional Past Medical History / Comment(s): Heart murmur, Parkinson's, CPAP use, hard of hearing; dailysis MWF, right arm fistula History of Any Multi-Drug Resistant Organisms: None Reported Past Surgical History: Orthopedic Surgery, Tonsillectomy Additional Past Surgical History / Comment(s): Bilateral knee surgery, left foot bone spur, right cataract removed, left shoulder arthroscopy, peritoneal dialysis catheter placed now removed. fistula placement for dialysis Past Anesthesia/Blood Transfusion Reactions: Previous Problems w/ Anesthesia Additional Past Anesthesia/Blood Transfusion Reaction / Comment(s): slow to wake and glucose tends to drop Past Psychological History: Anxiety, Bipolar, Depression Smoking Status: Former smoker Past Alcohol Use History: None Reported Past Drug Use History: None Reported - Past Family History Father Family Medical History: Cancer Mother Additional Family Medical History / Comment(s): Mother at age 74 from heart failure. Brother(s) Additional Family Medical History / Comment(s): Patient has one brother and one sister both have diabetes. Patient's 3 children with no major medical problems. Medications and Allergies Home Medications Medication Instructions Recorded Confirmed Type Levothyroxine Sodium [Synthroid] 200 mcg PO AC-BRKFST 01/29/16 05/01/24 History Escitalopram [Lexapro] 20 mg PO DAILY 11/06/19 05/01/24 History Fenofibrate 54 mg PO W/SUPPER 02/19/22 05/01/24 History lamoTRIgine [LaMICtal] 150 mg PO W/SUPPER 01/30/23 05/01/24 History Carbidopa-Levodopa 25-250 mg 1 tab PO QID 07/09/23 05/01/24 History [Sinemet 25-250 mg] Divalproex Sodium [Depakote] 1,000 mg PO W/SUPPER 07/09/23 05/01/24 History Divalproex [Depakote] 250 mg PO W/SUPPER 07/09/23 05/01/24 History Folic Acid 0.8 mg PO DAILY 11/06/23 05/01/24 History Lovastatin [Mevacor] 40 mg PO W/SUPPER 11/06/23 05/01/24 History Midodrine HCl [ProAmatine] 10 mg PO MOWEFR PRN 11/06/23 05/01/24 History Mirtazapine 7.5 mg PO HS 11/06/23 05/01/24 History Ferrous Sulfate [Iron (65 MG 325 mg PO DAILY 11/29/23 05/01/24 History Elemental)] Calcium Acetate 667mg Caps 667 mg PO AC-TID 01/27/24 05/01/24 History Omeprazole 20 mg PO DAILY 01/27/24 05/01/24 History Cyanocobalamin (Vitamin B-12) 1,000 mcg PO DAILY 03/26/24 05/01/24 History [Vitamin B-12] Baclofen [Lioresal] 5 mg PO BID PRN 30 Days #60 tab 03/31/24 05/01/24 Rx Acetaminophen [Tylenol] 325 - 650 mg PO Q4H PRN 05/01/24 05/01/24 History Insulin Aspart [NovoLOG Flexpen] See Protocol SQ AC-TID 05/01/24 05/01/24 History Insulin Detemir [Levemir Flexpen] 8 units SQ HS 05/01/24 05/01/24 History Allergies Allergy/AdvReac Type Severity Reaction Status Date / Time codeine AdvReac Sensitive Verified 05/01/24 14:38 to meds,slurred speech, unsteady on feet, confused Physical Exam Vitals: Vital Signs Temp Pulse Resp BP Pulse Ox 05/01/24 14:24 69 17 121/59 97 05/01/24 12:24 81 17 116/66 76 L 05/01/24 12:20 97.9 F 81 18 90/62 100 Intake and Output 05/01/24 05/01/24 05/01/24 06:59 14:59 22:59 Other: Weight 79.379 kg Results CBC & Chem 7: 05/01/24 13:39 05/01/24 13:39 Labs: Abnormal Lab Results - Last 24 Hours (Table) 05/01/24 05/01/24 Range/Units 13:39 13:39 RBC 3.50 L (4.30-5.90) m/uL Hgb 11.3 L (13.0-17.5) gm/dL Hct 35.9 L (39.0-53.0) % MCV 102.5 H (80.0-100.0) fL RDW 15.7 H (11.5-15.5) % Sodium 136 L (137-145) mmol/L Chloride 96 L (98-107) mmol/L Carbon Dioxide 34 H (22-30) mmol/L BUN 34 H (9-20) mg/dL Creatinine 3.60 H (0.66-1.25) mg/dL Glucose 169 H (74-99) mg/dL Creatine Kinase 40 L (55-170) U/L Total Protein 6.0 L (6.3-8.2) g/dL
[2024-05-01 17:12] LABS: Glucose,Whole Blood 151 mg/dL (70-110)
[2024-05-01] MEDS: INSULIN ASPART (NovoLOG) 100 UNIT/ML VIAL SQ SCH (17:39)
[2024-05-01] MEDS: DIVALPROEX 500 MG TABLET.DR PO SCH (17:39)
[2024-05-01] MEDS: lamoTRIgine 100 MG TAB PO SCH (17:39)
[2024-05-01] MEDS: ATORVASTATIN 10 MG TAB PO SCH (17:40)
[2024-05-01] MEDS: CALCIUM ACETATE 667 MG TAB PO SCH (17:40)
[2024-05-01] MEDS: DIVALPROEX 250 MG TABLET.DR PO SCH (17:40)
[2024-05-01] MEDS: CARBIDOPA-LEVODOPA 25-250 MG 1 EACH TAB PO SCH (18:27)
[2024-05-01] MEDS: FENOFIBRATE 54 MG TAB PO SCH (18:27)
[2024-05-01 20:06] LABS: Glucose,Whole Blood 110 mg/dL (70-110)
[2024-05-01] MEDS: INSULIN DETEMIR (LEVEMIR) 100 UNIT/ML SYR SQ SCH (20:50)
[2024-05-01] MEDS: MIRTAZAPINE 15 MG TAB PO SCH (21:18)
[2024-05-02 02:35] LABS: Glucose,Whole Blood 43 mg/dL (70-110)
[2024-05-02 03:07] LABS: Glucose,Whole Blood 106 mg/dL (70-110)
[2024-05-02 07:15] LABS: Glucose,Whole Blood 117 mg/dL (70-110)
[2024-05-02] MEDS: ESCITALOPRAM 20 MG TAB PO SCH (08:22)
[2024-05-02] MEDS: PANTOPRAZOLE 40 MG TABLET PO SCH (08:22)
[2024-05-02] MEDS: FERROUS SULFATE 325 MG TAB PO SCH (08:22)
[2024-05-02] MEDS: FOLIC ACID 1 MG TAB PO SCH (08:22)
[2024-05-02] MEDS: LEVOTHYROXINE 100 MCG TAB PO SCH (08:22)
[2024-05-02] MEDS: CYANOCOBALAMIN 500 MCG TAB PO SCH (08:22)
--- NOTE | 2024-05-02 08:43 | P.NPCON ---
History of Present Illness - Reason for Consult end stage renal disease - History of Present Illness Reason for consultation: End-stage renal disease History of present illness: Patient is a 78-year-old male seen in renal consultation for end-stage renal disease. He is maintained on hemodialysis on Saturday schedule via right upper extremity AV fistula. Patient came to the hospital after he sustained a fall at home. Patient states he was walking to his bedroom and fell due to tremors and weakness in his legs. He denies hitting his head. Denies losing consciousness. No chest pain or shortness of breath. No vomiting or diarrhea. Patient has longstanding history of diabetes. Hemodynamically stable. Denies fever or chills. No cough. No abdominal pain. He does make little urine. Vital signs are stable. General: No acute distress. HEENT: Head exam is unremarkable. LUNGS: No audible rhonchi or wheezes. HEART: Rate and Rhythm are regular. ABDOMEN: Nontender. EXTREMITITES: No edema. Past Medical History Past Medical History: Diabetes Mellitus, Hearing Disorder / Deafness, Hyperlipidemia, Osteoarthritis (OA), Renal Disease, Sleep Apnea/CPAP/BIPAP, Thyroid Disorder Additional Past Medical History / Comment(s): Heart murmur, Parkinson's, CPAP use, hard of hearing; dailysis MWF, right arm fistula History of Any Multi-Drug Resistant Organisms: None Reported Past Surgical History: Orthopedic Surgery, Tonsillectomy Additional Past Surgical History / Comment(s): Bilateral knee surgery, left foot bone spur, right cataract removed, left shoulder arthroscopy, peritoneal dialysis catheter placed now removed. fistula placement for dialysis Past Anesthesia/Blood Transfusion Reactions: Previous Problems w/ Anesthesia Additional Past Anesthesia/Blood Transfusion Reaction / Comment(s): slow to wake and glucose tends to drop Smoking Status: Never smoker - Past Family History Father Family Medical History: Cancer Mother Additional Family Medical History / Comment(s): Mother at age 74 from heart failure. Brother(s) Additional Family Medical History / Comment(s): Patient has one brother and one sister both have diabetes. Patient's 3 children with no major medical problems. Medications and Allergies Home Medications Medication Instructions Recorded Confirmed Type Levothyroxine Sodium [Synthroid] 200 mcg PO AC-BRKFST 01/29/16 05/01/24 History Escitalopram [Lexapro] 20 mg PO DAILY 11/06/19 05/01/24 History Fenofibrate 54 mg PO W/SUPPER 02/19/22 05/01/24 History lamoTRIgine [LaMICtal] 150 mg PO W/SUPPER 01/30/23 05/01/24 History Carbidopa-Levodopa 25-250 mg 1 tab PO QID 07/09/23 05/01/24 History [Sinemet 25-250 mg] Divalproex Sodium [Depakote] 1,000 mg PO W/SUPPER 07/09/23 05/01/24 History Divalproex [Depakote] 250 mg PO W/SUPPER 07/09/23 05/01/24 History Folic Acid 0.8 mg PO DAILY 11/06/23 05/01/24 History Lovastatin [Mevacor] 40 mg PO W/SUPPER 11/06/23 05/01/24 History Midodrine HCl [ProAmatine] 10 mg PO MOWEFR PRN 11/06/23 05/01/24 History Mirtazapine 7.5 mg PO HS 11/06/23 05/01/24 History Ferrous Sulfate [Iron (65 MG 325 mg PO DAILY 11/29/23 05/01/24 History Elemental)] Calcium Acetate 667mg Caps 667 mg PO AC-TID 01/27/24 05/01/24 History Omeprazole 20 mg PO DAILY 01/27/24 05/01/24 History Cyanocobalamin (Vitamin B-12) 1,000 mcg PO DAILY 03/26/24 05/01/24 History [Vitamin B-12] Baclofen [Lioresal] 5 mg PO BID PRN 30 Days #60 tab 03/31/24 05/01/24 Rx Acetaminophen [Tylenol] 325 - 650 mg PO Q4H PRN 05/01/24 05/01/24 History Insulin Aspart [NovoLOG Flexpen] See Protocol SQ AC-TID 05/01/24 05/01/24 Hist ory Insulin Detemir [Levemir Flexpen] 8 units SQ HS 05/01/24 05/01/24 History Allergies Allergy/AdvReac Type Severity Reaction Status Date / Time codeine AdvReac Sensitive Verified 05/01/24 14:38 to meds,slurred speech, unsteady on feet, confused Physical Exam Vitals: Vital Signs Temp Pulse Pulse Resp BP BP Pulse Ox 05/02/24 07:12 97.9 F 60 16 109/60 97 05/02/24 01:10 110/60 05/02/24 00:34 97.8 F 67 14 95/51 97 05/01/24 19:45 67 05/01/24 19:00 98.3 F 67 14 112/63 100 05/01/24 16:41 98.0 F 66 17 106/61 99 05/01/24 14:24 69 17 121/59 97 05/01/24 12:24 81 17 116/66 76 L 05/01/24 12:20 97.9 F 81 18 90/62 100 Intake and Output 05/01/24 05/02/24 05/02/24 22:59 06:59 14:59 Other: Voiding Method Bedside Commode # Voids 0 0 Weight 79.379 kg Results - Lab Results Most recent lab results Calcium 8.7 mg/dL (8.4-10.2) 05/01/24 13:39 05/01/24 13:39 05/01/24 13:39 Assessment and Plan Plan: Assessment: 1. End-stage renal disease maintained on hemodialysis on Saturday schedule. 2. Status post fall. 3. Chronic kidney disease mineral bone disease maintained on PhosLo. 4. Diabetes mellitus. Plan: Hemodialysis Saturday. Add scheduled midodrine. Hold for systolic blood pressure greater than 115. Check phosphorus level. Possible rehab upon discharge. Thank you for the consultation. I will continue to follow the patient with you during his hospital stay.
[2024-05-02 09:18] LABS: Basophils # (A) 0.03 X 10*3/uL (0.00-0.10); Basophils % (A) 0.7 %; Eosinophils # (A) 0.05 X 10*3/uL (0.04-0.35); Eosinophils % (A) 1.1 %; HCT 31.2 % (39.6-50.0); HGB 9.9 g/dL (13.0-17.0); Lymphocytes # (A) 1.76 X 10*3/uL (0.90-5.00); Lymphocytes % (A) 39.8 %; MCH 32.5 pg (27.0-32.0); MCHC 31.7 g/dL (32.0-37.0); MCV 102.3 FL (80.0-97.0); Monocytes # (A) 0.38 X 10*3/uL (0.20-1.00); Monocytes % (A) 8.6 %; NRBC Per 100 WBC 0 X 10*3/uL (0.00-0.01); Neutrophils # (A) 2.19 X 10*3/uL (1.80-7.70); Neutrophils % (A) 49.6 %; Platelet Count 128 X 10*3/uL (140-440); RBC 3.05 X 10*6/uL (4.40-5.60); RDW 15.5 % (11.5-14.5); WBC 4.42 X 10*3/uL (4.50-10.00)
[2024-05-02 09:43] LABS: BUN/Creat Ratio 9.35 Ratio (12.00-20.00); Blood Urea Nitrogen 44.9 mg/dL (9.0-27.0); Calcium 8.6 mg/dL (8.7-10.3); Carbon Dioxide 27.7 mmol/L (21.6-31.8); Chloride 98 mmol/L (96-109); Glucose 189 mg/dL (70-110); Potassium 4.9 mmol/L (3.5-5.5); Sodium 138 mmol/L (135-145)
--- NOTE | 2024-05-02 11:43 | P.PN ---
Subjective Progress Note Date: 05/02/24 HISTORY OF PRESENT ILLNESS This is a 78 year old male patient with past medical history of hypertension, hyperlipidemia, hypothyroidism, diabetes mellitus type 2, end-stage renal diseas e on hemodialysis Saturday and Saturday, Parkinson's disease, bipolar disorder, patient was recently hospitalized at [facility] last month, and he was admitted to [facility] for physical therapy rehabilitation, as a matter fact he was discharged from [facility] just past Saturday, went home patient fell at home on Saturday, but he ended up going to hemodialysis at that time, he did hurt his left foot, with increased bruising to the left big toe on the left second toe, patient is having hard time ambulating, using the walker, patient was complaining of increased back pain on Saturday he did not go to dialysis, yesterday the patient woke up in the morning try to go to the bathroom, and he fell and landed on the ground, for a few hours, his Lifeline did not work, eventually he managed to get up, patient ended up going to dialysis, he did receive full dialysis treatment, however because of his recurrent falls and generalized weakness he was referred to the ER for evaluation, apparently the patient was in the emergency department 24 hours ago after he had fallen and he was seen and evaluated by an x-ray did not show evidence of acute abnormalities, he was sent home, I received a phone call from his daughter to my office today stating that her father cannot take care of himself at home, and she wanted him to go back to [facility], patient apparently ended up going back to the ER for evaluation by physical therapy as well as by social worker palliative care, hopefully will be able to get him back to [facility] for more physical therapy and possibly for chronic care. 05/02: Patient is laying down in bed in no apparent distress, he continues have some pain in the left foot, he denies any chest pain or shortness of breath at this time he has no abdominal pain, nausea vomiting or diarrhea, he had an episode of hypoglycemia yesterday we will discontinue his Levemir completely continue sliding scale insulin for now, patient will be seen in consultation by physical therapy as well as by social worker palliative care, patient will likely need to be transferred back to [facility] hopefully on Saturday. REVIEW OF SYSTEMS Constitutional: No fever, no chills, no night sweats. No weight change. Reported weakness, fatigue. No daytime sleepiness. HEENT: No headache. No nasal drainage or congestion. No epistaxis. No sore throat. Lungs: No shortness of breath, cough, no sputum production. No wheezing. Cardiovascular: No chest pain, no lower extremity edema. No palpitations. No paroxysmal nocturnal dyspnea. No orthopnea. No lightheadedness or dizziness. No syncopal episodes. Abdominal: no abdominal pain. No nausea, vomiting. Had diarrhea. positive for constipation. No bloody or tarry stools. positive for loss of appetite. Genitourinary: No dysuria, increased frequency, urgency. No urinary retention. Musculoskeletal: No myalgias. Reported muscle weakness, reported gait dysfunction with chronic shuffling gait secondary to Parkinson's, reported frequent falls. positive for back pain and neck pain. Positive for left foot pain. Integumentary: No wounds, no lesions. No rash or pruritus. positive for bruising. No change in hair or nails. Neurologic: No aphasia. No facial droop. No change in mentation. No head injury. No headache. No paralysis. No paresthesia. Psychiatric: Reported depression. No anxiety. Endocrine: No abnormal blood sugars. No weight change. No excessive sweating or thirst. No cold intolerance. PHYSICAL EXAMINATION Gen: This is a 78-year-old male. He is resting in bed appears to be fairly comfortable. HEENT: Head is atraumatic, normocephalic. Pupils equal, round. Sclerae is anicteric. NECK: Supple. No JVD. No lymphadenopathy. No thyromegaly. LUNGS: Clear to auscultation. No wheezes or rhonchi. No intercostal retractions. HEART: Regular rate and rhythm. 2/6 systolic murmur at the left sternal border, no S3, no S4. ABDOMEN: Soft, non tender Bowel sounds are present. No masses.. EXTREMITIES: No pedal edema. No calf tenderness. Dorsalis pedis posterior bilaterally, minimal bruising to the left foot on the dorsal aspect of the left big toe on the left second toe. Tender to palpation. NEUROLOGICAL: Patient is awake, alert and oriented x2. Cranial nerves 2 through 12 are grossly intact. Deep tendon reflexes 2+ symmetrical, muscle power 3/5 in bilateral upper and lower extremities ASSESSMENT AND PLAN 1. Recurrent falls with acute pain in the left foot without evidence of acute fracture. Continue patient on current pain management, physical therapy evaluation in the next 24 hours, social worker palliative care consultation for possible subacute rehabilitation or ECF for chronic care. 2. End-stage renal disease on Saturday and Saturday patient missed d ialysis treatment twice consult with Dr. Scott veliz. Patient did get his hemodialysis today. 3. Parkinson's disease. Consult with neurology. Patient is currently on Sinemet 80880 milligrams 4 times daily. 4. Hypertension and hypertensive cardiovascular disease. Patient not currently on medications. No documented episodes of hypotension 5. Hyperlipidemia. Continue atorvastatin 10 mg at bedtime, fenofibrate 54 mg at bedtime. 6. Hypothyroidism. Continue levothyroxine 200 g daily . 7. Diabetes mellitus type 2. With recent A1c 7.0. Continue NovoLog scale before meals and at bedtime. 8. Bipolar disorder. Patient is on Depakote 1250 mg po qhs and we will continue with Lamictal 150 mg po daily and Lexparo 20 mg po daily 9. 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 Continue ferrous sulfate 325 mg daily. 10. DVT prophylaxis. Heparin subcu 5000 units every 12 hours. 11. GI prophylaxis. Pepcid 20 mg po daily 12. Orthostatic hypotension continue patient on midodrine 10 mg orally Saturday and Saturday prior to dialysis. 13. No code. Objective - Vital Signs Vital signs: Vital Signs Temp 97.9 F 05/02/24 07:12 Pulse 60 05/02/24 07:12 Resp 16 05/02/24 07:12 BP 109/60 05/02/24 07:12 Pulse Ox 97 05/02/24 07:12 FiO2 Intake & Output 05/01/24 05/02/24 05/02/24 18:59 06:59 18:59 Weight 79.379 kg Other: Voiding Method Bedside Commode # Voids 0 0 1 # Bowel Movements 1 - Labs CBC & Chem 7: 05/02/24 04:48 05/02/24 04:48 Labs: Abnormal Lab Results - Last 24 Hours (Table) 05/01/24 05/01/24 05/01/24 Range/Units 13:39 13:39 17:10 WBC (4.50-10.00) X 10*3/uL RBC 3.50 L (4.30-5.90) m/uL Hgb 11.3 L (13.0-17.5) gm/dL Hct 35.9 L (39.0-53.0) % MCV 102.5 H (80.0-100.0) fL MCH (27.0-32.0) pg MCHC (32.0-37.0) g/dL RDW 15.7 H (11.5-15.5) % Plt Count (140-440) X 10*3/uL MPV (9.5-12.2) FL Sodium 136 L (137-145) mmol/L Chloride 96 L (98-107) mmol/L Carbon Dioxide 34 H (22-30) mmol/L Anion Gap (4.00-12.00) mmol/L BUN 34 H (9-20) mg/dL Creatinine 3.60 H (0.66-1.25) mg/dL Est GFR (CKD-EPI) (>=60) BUN/Creatinine Ratio (12.00-20.00) Ratio Glucose 169 H (74-99) mg/dL POC Glucose (mg/dL) 151 H (70-110) mg/dL Hemoglobin A1c (<=6.0) % Calcium (8.7-10.3) mg/dL Creatine Kinase 40 L (55-170) U/L Total Protein 6.0 L (6.3-8.2) g/dL 05/02/24 05/02/24 05/02/24 Range/Units 02:33 04:48 04:48 WBC 4.42 L (4.50-10.00) X 10*3/uL RBC 3.05 L (4.30-5.90) m/uL Hgb 9.9 L (13.0-17.5) gm/dL Hct 31.2 L (39.0-53.0) % MCV 102.3 H (80.0-100.0) fL MCH 32.5 H (27.0-32.0) pg MCHC 31.7 L (32.0-37.0) g/dL RDW 15.5 H (11.5-15.5) % Plt Count 128 L (140-440) X 10*3/uL MPV 9.0 L (9.5-12.2) FL Sodium (137-145) mmol/L Chloride (98-107) mmol/L Carbon Dioxide (22-30) mmol/L Anion Gap (4.00-12.00) mmol/L BUN (9-20) mg/dL Creatinine (0.66-1.25) mg/dL Est GFR (CKD-EPI) (>=60) BUN/Creatinine Ratio (12.00-20.00) Ratio Glucose (74-99) mg/dL POC Glucose (mg/dL) 43 L* (70-110) mg/dL Hemoglobin A1c 6.1 H (<=6.0) % Calcium (8.7-10.3) mg/dL Creatine Kinase (55-170) U/L Total Protein (6.3-8.2) g/dL 05/02/24 05/02/24 Range/Units 04:48 07:14 WBC (4.50-10.00) X 10*3/uL RBC (4.30-5.90) m/uL Hgb (13.0-17.5) gm/dL Hct (39.0-53.0) % MCV (80.0-100.0) fL MCH (27.0-32.0) pg MCHC (32.0-37.0) g/dL RDW (11.5-15.5) % Plt Count (140-440) X 10*3/uL MPV (9.5-12.2) FL Sodium (137-145) mmol/L Chloride (98-107) mmol/L Carbon Dioxide (22-30) mmol/L Anion Gap 12.30 H (4.00-12.00) mmol/L BUN 44.9 H (9-20) mg/dL Creatinine 4.8 H (0.66-1.25) mg/dL Est GFR (CKD-EPI) 12 L (>=60) BUN/Creatinine Ratio 9.35 L (12.00-20.00) Ratio Glucose 189 H (74-99) mg/dL POC Glucose (mg/dL) 117 H (70-110) mg/dL Hemoglobin A1c (<=6.0) % Calcium 8.6 L (8.7-10.3) mg/dL Creatine Kinase (55-170) U/L Total Protein (6.3-8.2) g/dL
[2024-05-02 12:14] LABS: Glucose,Whole Blood 265 mg/dL (70-110)
[2024-05-02] MEDS: MIDODRINE 5 MG TAB PO SCH (12:53)
[2024-05-02 15:22] VITALS: BMI 23.7
[2024-05-02 17:13] LABS: Glucose,Whole Blood 78 mg/dL (70-110)
[2024-05-02 20:25] LABS: Glucose,Whole Blood 167 mg/dL (70-110)
[2024-05-02] MEDS: HEPARIN SODIUM,PORCINE 5,000 UNIT/ML 1 ML VIAL SQ SCH (21:33)
[2024-05-03 07:24] LABS: Glucose,Whole Blood 90 mg/dL (70-110)
[2024-05-03 09:27] LABS: Basophils # (A) 0.03 X 10*3/uL (0.00-0.10); Basophils % (A) 0.7 %; Eosinophils # (A) 0.05 X 10*3/uL (0.04-0.35); Eosinophils % (A) 1.2 %; HCT 31.6 % (39.6-50.0); HGB 10.2 g/dL (13.0-17.0); Lymphocytes # (A) 2.06 X 10*3/uL (0.90-5.00); Lymphocytes % (A) 48.6 %; MCHC 32.3 g/dL (32.0-37.0); MCV 102.3 FL (80.0-97.0); Monocytes # (A) 0.33 X 10*3/uL (0.20-1.00); Monocytes % (A) 7.8 %; NRBC Per 100 WBC 0 X 10*3/uL (0.00-0.01); Neutrophils # (A) 1.76 X 10*3/uL (1.80-7.70); Neutrophils % (A) 41.5 %; Platelet Count 121 X 10*3/uL (140-440); RBC 3.09 X 10*6/uL (4.40-5.60); RDW 15.4 % (11.5-14.5); WBC 4.24 X 10*3/uL (4.50-10.00)
--- NOTE | 2024-05-03 10:54 | P.PN ---
Subjective Patient is seen in follow-up for end-stage renal disease. He is maintained on hemodialysis on Saturday. Resting in bed. Denies chest pain or shortness of breath. Vital signs are stable. General: No acute distress. HEENT: Head exam is unremarkable. LUNGS: No audible rhonchi or wheezes. HEART: Rate and Rhythm are regular. ABDOMEN: Nontender. EXTREMITITES: No edema. Objective - Vital Signs Vital signs: Vital Signs Temp 98.1 F 05/03/24 07:20 Pulse 57 L 05/03/24 07:20 Resp 17 05/03/24 07:20 BP 153/74 05/03/24 07:20 Pulse Ox 96 05/03/24 07:20 FiO2 Intake & Output 05/02/24 05/03/24 05/03/24 18:59 06:59 18:59 Intake Total 540 590 Output Total 200 Balance 340 590 Weight 79.379 kg Intake: Oral 540 590 Output: Urine 200 Other: Voiding Method Bedside Commode # Voids 1 # Bowel Movements 1 - Labs CBC & Chem 7: 05/03/24 06:06 05/02/24 04:48 Labs: Abnormal Lab Results - Last 24 Hours (Table) 05/02/24 05/02/24 05/03/24 Range/Units 12:13 20:24 06:06 WBC 4.24 L (4.50-10.00) X 10*3/uL RBC 3.09 L (4.40-5.60) X 10*6/uL Hgb 10.2 L (13.0-17.0) g/dL Hct 31.6 L (39.6-50.0) % MCV 102.3 H (80.0-97.0) FL MCH 33.0 H (27.0-32.0) pg RDW 15.4 H (11.5-14.5) % Plt Count 121 L (140-440) X 10*3/uL MPV 9.0 L (9.5-12.2) FL Neutrophils # 1.76 L (1.80-7.70) X 10*3/uL POC Glucose (mg/dL) 265 H 167 H (70-110) mg/dL Assessment and Plan Plan: Assessment: 1. End-stage renal disease maintained on hemodialysis on Saturday schedule. 2. Status post fall. 3. Chronic kidney disease mineral bone disease maintained on PhosLo. 4. Diabetes mellitus. Plan: Hemodialysis Saturday. Hold midodrine for systolic blood pressure greater than 115. Follow-up phosphorus level. Possible rehab upon discharge.
[2024-05-03 10:56] LABS: Phosphorus 3.9 mg/dL (2.4-5.1)
[2024-05-03 11:46] LABS: ALT <5 U/L (10-49); AST 18 U/L (14-35); Albumin 3.2 g/dL (3.8-4.9); Albumin/Globulin Ratio 1.52 Ratio (1.60-3.17); Alkaline Phosphatase 82 U/L (41-126); BUN/Creat Ratio 9.53 Ratio (12.00-20.00); Blood Urea Nitrogen 54.3 mg/dL (9.0-27.0); Calcium 9.3 mg/dL (8.7-10.3); Carbon Dioxide 29.3 mmol/L (21.6-31.8); Chloride 100 mmol/L (96-109); Globulin 2.1 g/dL (1.6-3.3); Glucose 105 mg/dL (70-110); Potassium 5.1 mmol/L (3.5-5.5); Sodium 142 mmol/L (135-145); Total Bilirubin 0.3 mg/dL (0.3-1.2); Total Protein 5.3 g/dL (6.2-8.2)
--- NOTE | 2024-05-03 12:14 | P.PN ---
Subjective Progress Note Date: 05/03/24 HISTORY OF PRESENT ILLNESS This is a 78 year old male patient with past medical history of hypertension, hyperlipidemia, hypothyroidism, diabetes mellitus type 2, end-stage renal diseas e on hemodialysis Saturday and Saturday, Parkinson's disease, bipolar disorder, patient was recently hospitalized at [facility] last month, and he was admitted to [facility] for physical therapy rehabilitation, as a matter fact he was discharged from [facility] just past Saturday, went home patient fell at home on Saturday, but he ended up going to hemodialysis at that time, he did hurt his left foot, with increased bruising to the left big toe on the left second toe, patient is having hard time ambulating, using the walker, patient was complaining of increased back pain on Saturday he did not go to dialysis, yesterday the patient woke up in the morning try to go to the bathroom, and he fell and landed on the ground, for a few hours, his Lifeline did not work, eventually he managed to get up, patient ended up going to dialysis, he did receive full dialysis treatment, however because of his recurrent falls and generalized weakness he was referred to the ER for evaluation, apparently the patient was in the emergency department 24 hours ago after he had fallen and he was seen and evaluated by an x-ray did not show evidence of acute abnormalities, he was sent home, I received a phone call from his daughter to my office today stating that her father cannot take care of himself at home, and she wanted him to go back to [facility], patient apparently ended up going back to the ER for evaluation by physical therapy as well as by social worker health services, hopefully will be able to get him back to [facility] for more physical therapy and possibly for chronic care. 05/02: Patient is laying down in bed in no apparent distress, he continues have some pain in the left foot, he denies any chest pain or shortness of breath at this time he has no abdominal pain, nausea vomiting or diarrhea, he had an episode of hypoglycemia yesterday we will discontinue his Levemir completely continue sliding scale insulin for now, patient will be seen in consultation by physical therapy as well as by social worker health services, patient will likely need to be transferred back to [facility] hopefully on Saturday. 05/03: Patient is laying down in bed in no apparent distress, he continues to have some pain in the left foot, no chest pain or shortness of breath no abdominal pain, no nausea vomiting or diarrhea, he will be evaluated tomorrow morning by physical therapy and social worker health services likely will need to go back to subacute rehabilitation at [facility]. Patient continues to have pain in the left foot we will order CT scan of the left foot without contrast for further evaluation of possible foot fracture. REVIEW OF SYSTEMS Constitutional: No fever, no chills, no night sweats. No weight change. Reported weakness, fatigue. No daytime sleepiness. HEENT: No headache. No nasal drainage or congestion. No epistaxis. No sore throat. Lungs: No shortness of breath, cough, no sputum production. No wheezing. Cardiovascular: No chest pain, no lower extremity edema. No palpitations. No paroxysmal nocturnal dyspnea. No orthopnea. No lightheadedness or dizziness. No syncopal episodes. Abdominal: no abdominal pain. No nausea, vomiting. Had diarrhea. positive for constipation. No bloody or tarry stools. positive for loss of appetite. Genitourinary: No dysuria, increased frequency, urgency. No urinary retention. Musculoskeletal: No myalgias. Reported muscle weakness, reported gait dysfunction with chronic shuffling gait secondary to Parkinson's, reported frequent falls. positive for back pain and neck pain. Positive for left foot pain. Integumentary: No wounds, no lesions. No rash or pruritus. positive for bruising. No change in hair or nails. Neurologic: No aphasia. No facial droop. No change in mentation. No head injury. No headache. No paralysis. No paresthesia. Psychiatric: Reported depression. No anxiety. Endocrine: No abnormal blood sugars. No weight change. No excessive sweating or thirst. No cold intolerance. PHYSICAL EXAMINATION Gen: This is a 78-year-old male. He is resting in bed appears to be fairly comfortable. HEENT: Head is atraumatic, normocephalic. Pupils equal, round. Sclerae is anicteric. NECK: Supple. No JVD. No lymphadenopathy. No thyromegaly. LUNGS: Clear to auscultation. No wheezes or rhonchi. No intercostal retractions. HEART: Regular rate and rhythm. 2/6 systolic murmur at the left sternal border, no S3, no S4. ABDOMEN: Soft, non tender Bowel sounds are present. No masses.. EXTREMITIES: No pedal edema. No calf tenderness. Dorsalis pedis posterior bilaterally, minimal bruising to the left foot on the dorsal aspect of the left big toe on the left second toe. Tender to palpation. NEUROLOGICAL: Patient is awake, alert and oriented x2. Cranial nerves 2 through 12 are grossly intact. Deep tendon reflexes 2+ symmetrical, muscle power 3/5 in bilateral upper and lower extremities ASSESSMENT AND PLAN 1. Recurrent falls with acute pain in the left foot without evidence of acute fracture. Continue patient on current pain management, physical therapy e valuation in the next 24 hours, social worker health services consultation for possible subacute rehabilitation or ECF for chronic care. We will order CT scan of the left foot since the patient is not able to bear any weight on the left foot, he continues to have significant bruising on the dorsal aspect of the left big and second toes. 2. End-stage renal disease on Saturday and Saturday patient missed d ialysis treatment twice consult with Dr. Scott veliz. Patient did get his hemodialysis today. 3. Parkinson's disease. Consult with neurology. Patient is currently on Sinemet 94838 milligrams 4 times daily. 4. Hypertension and hypertensive cardiovascular disease. Patient not currently on medications. No documented episodes of hypotension 5. Hyperlipidemia. Continue atorvastatin 10 mg at bedtime, fenofibrate 54 mg at bedtime. 6. Hypothyroidism. Continue levothyroxine 200 g daily . 7. Diabetes mellitus type 2. With recent A1c 7.0. Continue NovoLog scale before meals and at bedtime. 8. Bipolar disorder. Patient is on Depakote 1250 mg po qhs and we will continue with Lamictal 150 mg po daily and Lexparo 20 mg po daily 9. 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 Continue ferrous sulfate 325 mg daily. 10. DVT prophylaxis. Heparin subcu 5000 units every 12 hours. 11. GI prophylaxis. Pepcid 20 mg po daily 12. Orthostatic hypotension continue patient on midodrine 10 mg orally Saturday and Saturday prior to dialysis. 13. No code. 14. Disposition subacute rehab at [facility]. Objective - Vital Signs Vital signs: Vital Signs Temp 98.1 F 05/03/24 07:20 Pulse 57 L 05/03/24 07:20 Resp 17 05/03/24 07:20 BP 153/74 05/03/24 07:20 Pulse Ox 96 05/03/24 07:20 FiO2 Intake & Output 05/02/24 05/03/24 05/03/24 18:59 06:59 18:59 Intake Total 540 590 Output Total 200 Balance 340 590 Weight 79.379 kg Intake: Oral 540 590 Output: Urine 200 Other: Voiding Method Bedside Commode # Voids 1 # Bowel Movements 1 - Labs CBC & Chem 7: 05/03/24 06:06 05/03/24 06:06 Labs: Abnormal Lab Results - Last 24 Hours (Table) 05/02/24 05/02/24 05/03/24 Range/Units 12:13 20:24 06:06 WBC 4.24 L (4.50-10.00) X 10*3/uL RBC 3.09 L (4.40-5.60) X 10*6/uL Hgb 10.2 L (13.0-17.0) g/dL Hct 31.6 L (39.6-50.0) % MCV 102.3 H (80.0-97.0) FL MCH 33.0 H (27.0-32.0) pg RDW 15.4 H (11.5-14.5) % Plt Count 121 L (140-440) X 10*3/uL MPV 9.0 L (9.5-12.2) FL Neutrophils # 1.76 L (1.80-7.70) X 10*3/uL POC Glucose (mg/dL) 265 H 167 H (70-110) mg/dL
[2024-05-03 12:16] LABS: Glucose,Whole Blood 135 mg/dL (70-110)
--- NOTE | 2024-05-03 15:02 | CT ---
EXAMINATION TYPE: CT foot LT wo con DATE OF EXAM: 05/03/2024 COMPARISON: Radiographs 05/01/2024 HISTORY: 78-year-old male with foot pain, 1st/2nd digit bruising TECHNIQUE: Contiguous axial scanning of the left foot without IV contrast. Coronal and sagittal recon structions performed. 3-D reconstructions generated on a dedicated workstation. CT DLP: 284.6 mGycm Automated exposure control for dose reduction was used. FINDINGS: Osteopenia limiting the assessment. Dorsal soft tissue swelling. Enthesopathy and chronic bony fragme nts at the base of the fifth metatarsal. Focal cortical angulation along the dorsal aspect of the first proximal phalangeal base, sagittal obdulio ge 28. Underlying osteoarthritic change scattered throughout the PIP joints of the toes. Midfoot alignment i s maintained. No displaced fracture seen. IMPRESSION: DORSAL SOFT TISSUE SWELLING. EXAM LIMITATIONS DUE TO SEVERE OSTEOPENIA. GIVEN CORTICAL ANGULATION OLY NG THE DORSAL ASPECT OF THE FIRST PROXIMAL PHALANGEAL BASE (SAGITTAL IMAGE 28), UNABLE TO EXCLUDE A S UBTLE NONDISPLACED FRACTURE HERE.
[2024-05-03 17:12] LABS: Glucose,Whole Blood 142 mg/dL (70-110)
[2024-05-03 20:03] LABS: Glucose,Whole Blood 164 mg/dL (70-110)
[2024-05-03 20:34] VITALS: RESP 16
[2024-05-04 07:07] LABS: Basophils % (A) 1 %; Eosinophils # (A) 0.1 k/uL (0-0.7); Eosinophils % (A) 2 %; HCT 32.6 % (39.0-53.0); HGB 10.8 gm/dL (13.0-17.5); Lymphocytes # (A) 1.8 k/uL (1.0-4.8); Lymphocytes % (A) 48 %; MCH 33.1 pg (25.0-35.0); MCV 100.4 fL (80.0-100.0); Macrocytosis Slight; Mean Platelet Volume 7.8; Monocytes # (A) 0.2 k/uL (0-1.0); Monocytes % (A) 5 %; Neutrophils # (A) 1.6 k/uL (1.3-7.7); Neutrophils % (A) 43 %; Platelet Count 145 k/uL (150-450); RBC 3.25 m/uL (4.30-5.90); RDW 15.4 % (11.5-15.5); WBC 3.7 k/uL (3.8-10.6)
[2024-05-04 07:34] LABS: Glucose,Whole Blood 114 mg/dL (70-110)
[2024-05-04 07:52] LABS: ALT <6 U/L (4-49); African American GFR (CKD) 9 (>60 ml/min/1.73 sqM); Albumin/Globulin Ratio 1.2; Anion Gap 6 mmol/L; Blood Urea Nitrogen 70 mg/dL (9-20); Calcium 8.6 mg/dL (8.4-10.2); Carbon Dioxide 29 mmol/L (22-30); Chloride 99 mmol/L (98-107); Globulin 2.4 g/dL; Glucose 162 mg/dL (74-99); Non-African American GFR(CKD) 8 (>60 ml/min/1.73 sqM); Sodium 134 mmol/L (137-145); Total Bilirubin 0.8 mg/dL (0.2-1.3)
[2024-05-04 07:55] LABS: AST 27 U/L (17-59); Albumin 2.9 g/dL (3.5-5.0); Alkaline Phosphatase 68 U/L (38-126); Potassium 5.7 mmol/L (3.5-5.1); Total Protein 5.3 g/dL (6.3-8.2)
--- NOTE | 2024-05-04 11:29 | P.PN ---
Subjective Patient is seen in follow-up for end-stage renal disease. He is maintained on hemodialysis on Saturday. Resting in bed. Denies chest pain or shortness of breath. Vital signs are stable. General: No acute distress. HEENT: Head exam is unremarkable. LUNGS: No audible rhonchi or wheezes. HEART: Rate and Rhythm are regular. ABDOMEN: Nontender. EXTREMITITES: No edema. Objective - Vital Signs Vital signs: Vital Signs Temp 98.4 F 05/04/24 07:15 Pulse 57 L 05/04/24 07:15 Resp 16 05/04/24 07:15 BP 126/66 05/04/24 07:15 Pulse Ox 97 05/04/24 07:15 FiO2 Intake & Output 05/03/24 05/04/24 05/04/24 18:59 06:59 18:59 Output Total 225 100 Balance -225 -100 Output: Urine 225 100 Other: Voiding Method Bedside Commode - Labs CBC & Chem 7: 05/04/24 06:07 05/04/24 06:07 Labs: Abnormal Lab Results - Last 24 Hours (Table) 05/03/24 05/03/24 05/03/24 Range/Units 06:06 12:10 17:11 WBC (3.8-10.6) k/uL RBC (4.30-5.90) m/uL Hgb (13.0-17.5) gm/dL Hct (39.0-53.0) % MCV (80.0-100.0) fL Plt Count (150-450) k/uL Sodium (137-145) mmol/L Potassium (3.5-5.1) mmol/L Anion Gap 12.70 H (4.00-12.00) mmol/L BUN 54.3 H (9.0-27.0) mg/dL Creatinine 5.7 H (0.6-1.5) mg/dL Est GFR (CKD-EPI) 9 L (>=60) BUN/Creatinine Ratio 9.53 L (12.00-20.00) Ratio Glucose (74-99) mg/dL POC Glucose (mg/dL) 135 H 142 H (70-110) mg/dL ALT <5 L (10-49) U/L Total Protein 5.3 L (6.2-8.2) g/dL Albumin 3.2 L (3.8-4.9) g/dL Albumin/Globulin Ratio 1.52 L (1.60-3.17) Ratio 05/03/24 05/04/24 05/04/24 Range/Units 20:02 06:07 06:07 WBC 3.7 L (3.8-10.6) k/uL RBC 3.25 L (4.30-5.90) m/uL Hgb 10.8 L (13.0-17.5) gm/dL Hct 32.6 L (39.0-53.0) % MCV 100.4 H (80.0-100.0) fL Plt Count 145 L (150-450) k/uL Sodium 134 L (137-145) mmol/L Potassium 5.7 H (3.5-5.1) mmol/L Anion Gap (4.00-12.00) mmol/L BUN 70 H (9.0-27.0) mg/dL Creatinine 6.08 H (0.6-1.5) mg/dL Est GFR (CKD-EPI) (>=60) BUN/Creatinine Ratio (12.00-20.00) Ratio Glucose 162 H (74-99) mg/dL POC Glucose (mg/dL) 164 H (70-110) mg/dL ALT (10-49) U/L Total Protein 5.3 L (6.2-8.2) g/dL Albumin 2.9 L (3.8-4.9) g/dL Albumin/Globulin Ratio (1.60-3.17) Ratio 05/04/24 Range/Units 07:32 WBC (3.8-10.6) k/uL RBC (4.30-5.90) m/uL Hgb (13.0-17.5) gm/dL Hct (39.0-53.0) % MCV (80.0-100.0) fL Plt Count (150-450) k/uL Sodium (137-145) mmol/L Potassium (3.5-5.1) mmol/L Anion Gap (4.00-12.00) mmol/L BUN (9.0-27.0) mg/dL Creatinine (0.6-1.5) mg/dL Est GFR (CKD-EPI) (>=60) BUN/Creatinine Ratio (12.00-20.00) Ratio Glucose (74-99) mg/dL POC Glucose (mg/dL) 114 H (70-110) mg/dL ALT (10-49) U/L Total Protein (6.2-8.2) g/dL Albumin (3.8-4.9) g/dL Albumin/Globulin Ratio (1.60-3.17) Ratio Assessment and Plan Plan: Assessment: 1. End-stage renal disease maintained on hemodialysis on Saturday schedule. 2. Status post fall. 3. Chronic kidney disease mineral bone disease maintained on PhosLo. Phosphorus level 3.9 dated May 03, 2024. 4. Diabetes mellitus. Plan: Hemodialysis today. Hold midodrine for systolic blood pressure greater than 115. Possible rehab upon discharge.
[2024-05-04 11:44] LABS: Glucose,Whole Blood 84 mg/dL (70-110)
[2024-05-04 16:58] LABS: Glucose,Whole Blood 154 mg/dL (70-110)
--- NOTE | 2024-05-04 19:13 | P.PN ---
Subjective Progress Note Date: 05/04/24 HISTORY OF PRESENT ILLNESS This is a 78 year old male patient with past medical history of hypertension, hyperlipidemia, hypothyroidism, diabetes mellitus type 2, end-stage renal diseas e on hemodialysis Saturday and Saturday, Parkinson's disease, bipolar disorder, patient was recently hospitalized at [facility] last month, and he was admitted to [facility] for physical therapy rehabilitation, as a matter fact he was discharged from [facility] just past Saturday, went home patient fell at home on Saturday, but he ended up going to hemodialysis at that time, he did hurt his left foot, with increased bruising to the left big toe on the left second toe, patient is having hard time ambulating, using the walker, patient was complaining of increased back pain on Saturday he did not go to dialysis, yesterday the patient woke up in the morning try to go to the bathroom, and he fell and landed on the ground, for a few hours, his Lifeline did not work, eventually he managed to get up, patient ended up going to dialysis, he did receive full dialysis treatment, however because of his recurrent falls and generalized weakness he was referred to the ER for evaluation, apparently the patient was in the emergency department 24 hours ago after he had fallen and he was seen and evaluated by an x-ray did not show evidence of acute abnormalities, he was sent home, I received a phone call from his daughter to my office today stating that her father cannot take care of himself at home, and she wanted him to go back to [facility], patient apparently ended up going back to the ER for evaluation by physical therapy as well as by hospice social worker, hopefully will be able to get him back to [facility] for more physical therapy and possibly for chronic care. 05/02: Patient is laying down in bed in no apparent distress, he continues have some pain in the left foot, he denies any chest pain or shortness of breath at this time he has no abdominal pain, nausea vomiting or diarrhea, he had an episode of hypoglycemia yesterday we will discontinue his Levemir completely continue sliding scale insulin for now, patient will be seen in consultation by physical therapy as well as by hospice social worker, patient will likely need to be transferred back to [facility] hopefully on Saturday. 05/03: Patient is laying down in bed in no apparent distress, he continues to have some pain in the left foot, no chest pain or shortness of breath no abdominal pain, no nausea vomiting or diarrhea, he will be evaluated tomorrow morning by physical therapy and hospice social worker likely will need to go back to subacute rehabilitation at [facility]. Patient continues to have pain in the left foot we will order CT scan of the left foot without contrast for further evaluation of possible foot fracture. 05/04: Patient is sitting up at the edge of the bed, he cannot put any pressure on his left foot, patient had a CT scan of the foot without contrast that showed evidence of angulation at the proximal first phalangeal base suggestive of possible nondisplaced fracture we will consult orthopedic surgery for further re commendation, patient will need to be in a boot for him to be able to ambulate with physical therapy, patient will require to go to subacute rehabilitation at this point in time. REVIEW OF SYSTEMS Constitutional: No fever, no chills, no night sweats. No weight change. Report ed weakness, fatigue. No daytime sleepiness. HEENT: No headache. No nasal drainage or congestion. No epistaxis. No sore throat. Lungs: No shortness of breath, cough, no sputum production. No wheezing. Cardiovascular: No chest pain, no lower extremity edema. No palpitations. No paroxysmal nocturnal dyspnea. No orthopnea. No lightheadedness or dizziness. No syncopal episodes. Abdominal: no abdominal pain. No nausea, vomiting. Had diarrhea. positive for constipation. No bloody or tarry stools. positive for loss of appetite. Genitourinary: No dysuria, increased frequency, urgency. No urinary retention. Musculoskeletal: No myalgias. Reported muscle weakness, reported gait dysfu nction with chronic shuffling gait secondary to Parkinson's, reported frequent falls. positive for back pain and neck pain. Positive for left foot pain. Integumentary: No wounds, no lesions. No rash or pruritus. positive for bruising. No change in hair or nails. Neurologic: No aphasia. No facial droop. No change in mentation. No head injury. No headache. No paralysis. No paresthesia. Psychiatric: Reported depression. No anxiety. Endocrine: No abnormal blood sugars. No weight change. No excessive sweating or thirst. No cold intolerance. PHYSICAL EXAMINATION Gen: This is a 78-year-old male. He is resting in bed appears to be fairly comfortable. HEENT: Head is atraumatic, normocephalic. Pupils equal, round. Sclerae is anicteric. NECK: Supple. No JVD. No lymphadenopathy. No thyromegaly. LUNGS: Clear to auscultation. No wheezes or rhonchi. No intercostal retractions. HEART: Regular rate and rhythm. 2/6 systolic murmur at the left sternal border, no S3, no S4. ABDOMEN: Soft, non tender Bowel sounds are present. No masses.. EXTREMITIES: No pedal edema. No calf tenderness. Dorsalis pedis posterior bilaterally, minimal bruising to the left foot on the dorsal aspect of the left big toe on the left second toe. Tender to palpation. NEUROLOGICAL: Patient is awake, alert and oriented x2. Cranial nerves 2 through 12 are grossly intact. Deep tendon reflexes 2+ symmetrical, muscle power 3/5 in bilateral upper and lower extremities ASSESSMENT AND PLAN 1. Recurrent falls with acute pain in the left foot with proximal phalangeal base fracture nondisplaced, we will order orthopedic evaluation, patient may need to have a boot for ambulation. Continue patient on current pain management, physical therapy evaluation in the next 24 hours, hospice social worker consultation for possible subacute rehabilitation or ECF for chronic care, I spoke with the [facility]oebe and L[facility] for subacute rehabilitation as well. 2. End-stage renal disease on Saturday and Saturday nephrology is following. 3. Parkinson's disease. Consult with neurology. Patient is currently on Sinemet 07857 milligrams 4 times daily. 4. Hypertension and hypertensive cardiovascular disease. Patient not currently on medications. No documented episodes of hypotension 5. Hyperlipidemia. Continue atorvastatin 10 mg at bedtime, fenofibrate 54 mg at bedtime. 6. Hypothyroidism. Continue levothyroxine 200 g daily . 7. Diabetes mellitus type 2. With recent A1c 7.0. Continue NovoLog scale before meals and at bedtime. 8. Bipolar disorder. Patient is on Depakote 1250 mg po qhs and we will continue with Lamictal 150 mg po daily and Lexparo 20 mg po daily 9. 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 Continue ferrous sulfate 325 mg daily. 10. DVT prophylaxis. Heparin subcu 5000 units every 12 hours. 11. GI prophylaxis. Pepcid 20 mg po daily 12. Orthostatic hypotension continue patient on midodrine 10 mg orally Saturday and Saturday prior to dialysis. 13. No code. 14. Disposition subacute rehab at [facility]. Objective - Vital Signs Vital signs: Vital Signs Temp 97.6 F 05/04/24 11:37 Pulse 60 05/04/24 11:37 Resp 16 05/04/24 11:37 BP 122/70 05/04/24 11:37 Pulse Ox 97 05/04/24 11:37 FiO2 Intake & Output 05/03/24 05/04/24 05/04/24 18:59 06:59 18:59 Output Total 225 100 Balance -225 -100 Output: Urine 225 100 Other: Voiding Method Bedside Commode - Labs CBC & Chem 7: 05/04/24 06:07 05/04/24 06:07 Labs: Abnormal Lab Results - Last 24 Hours (Table) 05/03/24 05/03/24 05/04/24 Range/Units 17:11 20:02 06:07 WBC 3.7 L (3.8-10.6) k/uL RBC 3.25 L (4.30-5.90) m/uL Hgb 10.8 L (13.0-17.5) gm/dL Hct 32.6 L (39.0-53.0) % MCV 100.4 H (80.0-100.0) fL Plt Count 145 L (150-450) k/uL Sodium (137-145) mmol/L Potassium (3.5-5.1) mmol/L BUN (9-20) mg/dL Creatinine (0.66-1.25) mg/dL Glucose (74-99) mg/dL POC Glucose (mg/dL) 142 H 164 H (70-110) mg/dL Total Protein (6.3-8.2) g/dL Albumin (3.5-5.0) g/dL 05/04/24 05/04/24 Range/Units 06:07 07:32 WBC (3.8-10.6) k/uL RBC (4.30-5.90) m/uL Hgb (13.0-17.5) gm/dL Hct (39.0-53.0) % MCV (80.0-100.0) fL Plt Count (150-450) k/uL Sodium 134 L (137-145) mmol/L Potassium 5.7 H (3.5-5.1) mmol/L BUN 70 H (9-20) mg/dL Creatinine 6.08 H (0.66-1.25) mg/dL Glucose 162 H (74-99) mg/dL POC Glucose (mg/dL) 114 H (70-110) mg/dL Total Protein 5.3 L (6.3-8.2) g/dL Albumin 2.9 L (3.5-5.0) g/dL
[2024-05-04 20:36] LABS: Glucose,Whole Blood 112 mg/dL (70-110)
[2024-05-05 07:02] LABS: Glucose,Whole Blood 91 mg/dL (70-110)
[2024-05-05 08:15] VITALS: BP 128/73; PULSE 55; TEMP 97.9
--- NOTE | 2024-05-05 08:46 | P.CNOR ---
History of Present Illness - [facility] Consult date: 05/05/24 Consult reason: fracture History of present illness: The patient is a 78 y/o male who presented to hospital with multiple falls. He had complaints of left foot pain in the ER and x-rays were taken. No fracture was found at that time. The patient continued to complain of pain and inability to bear weight on the left foot. A CT of the foot was obtained and revealed a great toe fracture. Orthopedics was consulted for further evaluation and treatment of the toe fracture. He is likely going to skilled rehab after discharge from the hospital. Review of Systems Constitutional: Denies chills, Denies fatigue, Denies fever Cardiovascular: Denies shortness of breath Respiratory: Denies cough Gastrointestinal: Denies diarrhea, Denies nausea, Denies vomiting Musculoskeletal: left: foot pain, foot stiffness, foot swelling Past Medical History Past Medical History: Diabetes Mellitus, Hearing Disorder / Deafness, Hyperlipidemia, Osteoarthritis (OA), Renal Disease, Sleep Apnea/CPAP/BIPAP, Thyroid Disorder Additional Past Medical History / Comment(s): Heart murmur, Parkinson's, CPAP use, hard of hearing; dailysis MWF, right arm fistula History of Any Multi-Drug Resistant Organisms: None Reported Past Surgical History: Orthopedic Surgery, Tonsillectomy Additional Past Surgical History / Comment(s): Bilateral knee surgery, left foot bone spur, right cataract removed, left shoulder arthroscopy, peritoneal dialysis catheter placed now removed. fistula placement for dialysis Past Anesthesia/Blood Transfusion Reactions: Previous Problems w/ Anesthesia Additional Past Anesthesia/Blood Transfusion Reaction / Comm: slow to wake and glucose tends to drop Smoking Status: Never smoker - Past Family History Father Family Medical History: Cancer Mother Additional Family Medical History / Comment(s): Mother at age 74 from heart failure. Brother(s) Additional Family Medical History / Comment(s): Patient has one brother and one sister both have diabetes. Patient's 3 children with no major medical problems. Medications and Allergies Home Medications Medication Instructions Recorded Confirmed Type Levothyroxine Sodium [Synthroid] 200 mcg PO AC-BRKFST 01/29/16 05/01/24 History Escitalopram [Lexapro] 20 mg PO DAILY 11/06/19 05/01/24 History Fenofibrate 54 mg PO W/SUPPER 02/19/22 05/01/24 History lamoTRIgine [LaMICtal] 150 mg PO W/SUPPER 01/30/23 05/01/24 History Carbidopa-Levodopa 25-250 mg 1 tab PO QID 07/09/23 05/01/24 History [Sinemet 25-250 mg] Divalproex Sodium [Depakote] 1,000 mg PO W/SUPPER 07/09/23 05/01/24 History Divalproex [Depakote] 250 mg PO W/SUPPER 07/09/23 05/01/24 History Folic Acid 0.8 mg PO DAILY 11/06/23 05/01/24 History Lovastatin [Mevacor] 40 mg PO W/SUPPER 11/06/23 05/01/24 History Mirtazapine 7.5 mg PO HS 11/06/23 05/01/24 History Ferrous Sulfate [Iron (65 MG 325 mg PO DAILY 11/29/23 05/01/24 History Elemental)] Calcium Acetate 667mg Caps 667 mg PO AC-TID 01/27/24 05/01/24 History Omeprazole 20 mg PO DAILY 01/27/24 05/01/24 History Cyanocobalamin (Vitamin B-12) 1,000 mcg PO DAILY 03/26/24 05/01/24 History [Vitamin B-12] Baclofen [Lioresal] 5 mg PO BID PRN 30 Days #60 tab 03/31/24 05/01/24 Rx Acetaminophen [Tylenol] 325 - 650 mg PO Q4H PRN 05/01/24 05/01/24 History Insulin Aspart [NovoLOG Flexpen] See Protocol SQ AC-TID 05/01/24 05/01/24 History Insulin Detemir [Levemir Flexpen] 8 units SQ HS 05/01/24 05/01/24 History Midodrine HCl [ProAmatine] 10 mg PO MOWEFR PRN #0 05/05/24 05/01/24 Rx Allergies Allergy/AdvReac Type Severity Reaction Status Date / Time codeine AdvReac Sensitive Verified 05/01/24 14:38 to meds,slurred speech, unsteady on feet, confused Physical Examination The patient is a 78 y/o male in no acute distress. He is alert and oriented x3. Exam of the left foot reveals bruising to the left great toe and lesser toes extending into the dorsal foot and ankle. There is significant pain to the proximal phalanx of the left great toe and the MTP joint of the lesser toes. No pain in the ankle or at the 5th metatarsal base. He is able to wiggle his toes with pain. Good ankle motion. Calf is soft and nontender. Neurological and circulatory status is intact. Results X-ray and CT of the left foot were reviewed. Nondisplaced proximal phalanx fracture of the left great toe present. No other fractures or dislocation noted. - Labs Labs: Abnormal Lab Results - Last 24 Hours (Table) 05/04/24 05/04/24 Range/Units 16:56 20:35 POC Glucose (mg/dL) 154 H 112 H (70-110) mg/dL H & H 05/01/24 05/02/24 05/03/24 Range/Units 13:39 04:48 06:06 Hgb 11.3 L 9.9 L 10.2 L (13.0-17.5) gm/dL Hct 35.9 L 31.2 L 31.6 L (39.0-53.0) % 05/04/24 Range/Units 06:07 Hgb 10.8 L (13.0-17.5) gm/dL Hct 32.6 L (39.0-53.0) % Result Diagrams: 05/04/24 06:07 05/04/24 06:07 Assessment and Plan (1) Fall Current Visit: Yes Status: Acute Code(s): W19.XXXA - UNSPECIFIED FALL, INITIAL ENCOUNTER SNOMED Code(s): 7233575 (2) Foot pain, left Current Visit: Yes Status: Acute Code(s): M79.672 - PAIN IN LEFT FOOT SNOMED Code(s): 11796117 Plan: The clinical and diagnostic findings were discussed with the patient and Dr. Gagnon. We will order a short boot for the left foot. He may weightbear as tolerated in the boot with a walker. He may discharge to skilled rehab when the boot is obtained and follow up in the office in a couple of weeks.
--- NOTE | 2024-05-05 10:39 | P.PN ---
Subjective Patient is seen in follow-up for end-stage renal disease. He is maintained on hemodialysis on Saturday. Resting in bed. Denies chest pain or shortness of breath. Vital signs are stable. General: No acute distress. HEENT: Head exam is unremarkable. LUNGS: No audible rhonchi or wheezes. HEART: Rate and Rhythm are regular. ABDOMEN: Nontender. EXTREMITITES: No edema. Objective - Vital Signs Vital signs: Vital Signs Temp 97.9 F 05/05/24 06:57 Pulse 55 L 05/05/24 06:57 Resp 16 05/05/24 06:57 BP 128/73 05/05/24 06:57 Pulse Ox 100 05/05/24 06:57 FiO2 Intake & Output 05/04/24 05/05/24 05/05/24 18:59 06:59 18:59 Intake Total 400 100 Output Total 1500 Balance -1100 100 Intake: Oral 100 Hemodialysis 400 Output: Urine 100 Hemodialysis 1400 Other: # Bowel Movements 1 - Labs CBC & Chem 7: 05/04/24 06:07 05/04/24 06:07 Labs: Abnormal Lab Results - Last 24 Hours (Table) 05/04/24 05/04/24 Range/Units 16:56 20:35 POC Glucose (mg/dL) 154 H 112 H (70-110) mg/dL Assessment and Plan Plan: Assessment: 1. End-stage renal disease maintained on hemodialysis on Saturday schedule. 2. Status post fall. 3. Chronic kidney disease mineral bone disease maintained on PhosLo. Phosphorus level 3.9 dated May 03, 2024. 4. Diabetes mellitus. Plan: Hemodialysis tomorrow. Hold midodrine for systolic blood pressure greater than 115. Possible rehab upon discharge.
--- NOTE | 2024-05-05 10:55 | P.DS ---
Providers Date of admission: 05/04/24 19:14 Expected date of discharge: 05/05/24 Attending physician: Kimberly Gerardo Consults: 05/01/24 15:02 Consult Physician Routine Consulting Provider: Tai Coombs Consult Reason/Comments: esrd on hd - m,w,f Do you want consulting provider notified?: Yes 05/04/24 13:00 Consult Physician Routine Consulting Provider: Josiah Skinner Consult Reason/Comments: Left foot fracture Do you want consulting provider notified?: Yes [facility] Course: HISTORY OF PRESENT ILLNESS This is a 78 year old male patient with past medical history of hypertension, hyperlipidemia, hypothyroidism, diabetes mellitus type 2, end-stage renal disease on hemodialysis Saturday and Saturday, Parkinson's disease, bipolar disorder, patient was recently hospitalized at [facility] last month, and he was admitted to [facility] for physical therapy rehabilitation, as a matter fact he was discharged from [facility] just past Saturday, went home patient fell at home on Saturday, but he ended up going to hemodialysis at that time, he did hurt his left foot, with increased bruising to the left big toe on the left second toe, patient is having hard time ambulating, using the walker, patient was complaining of increased back pain on Saturday he did not go to dialysis, yesterday the patient woke up in the morning try to go to the bathroom, and he fell and landed on the ground, for a few hours, his Lifeline did not work, eventually he managed to get up, patient ended up going to dialysis, he did r eceive full dialysis treatment, however because of his recurrent falls and generalized weakness he was referred to the ER for evaluation, apparently the patient was in the emergency department 24 hours ago after he had fallen and he was seen and evaluated by an x-ray did not show evidence of acute abnormalities, he was sent home, I received a phone call from his daughter to my office today stating that her father cannot take care of himself at home, and she wanted him to go back to [facility], patient apparently ended up going back to the ER for evaluation by physical therapy as well as by social media coordinator, hopefully will be able to get him back to [facility] for more physical therapy and possibly for chronic care. 05/02: Patient is laying down in bed in no apparent distress, he continues have some pain in the left foot, he denies any chest pain or shortness of breath at this time he has no abdominal pain, nausea vomiting or diarrhea, he had an episode of hypoglycemia yesterday we will discontinue his Levemir completely continue sliding scale insulin for now, patient will be seen in consultation by physical therapy as well as by social media coordinator, patient will likely need to be transferred back to [facility] hopefully on Saturday. 05/03: Patient is laying down in bed in no apparent distress, he continues to have some pain in the left foot, no chest pain or shortness of breath no abdominal pain, no nausea vomiting or diarrhea, he will be evaluated tomorrow morning by physical therapy and social media coordinator likely will need to go back to subacute rehabilitation at [facility]. Patient continues to have pain in the left foot we will order CT scan of the left foot without contrast for further evaluation of possible foot fracture. 05/04: Patient is sitting up at the edge of the bed, he cannot put any pressure on his left foot, patient had a CT scan of the foot without contrast that showed evidence of angulation at the proximal first phalangeal base suggestive of possible nondisplaced fracture we will consult orthopedic surgery for further recommendation, patient will need to be in a boot for him to be able to ambulate with physical therapy, patient will require to go to subacute rehabilitation at this point in time. 05/05: Patient has been seen by orthopedics with plan for short boot for the left lower extremity. Patient has been seen by nephrology and maintained on Saturday schedule. Midodrine to be on hold for systolic blood pressure less than 115. Blood pressure 128/73, heart rate 55, pulse ox 100% on room air. Patient has been afebrile. Repeat laboratory studies are pending. Patient is scheduled for discharge to [facility] for subacute rehab. DISCHARGE DIAGNOSES 1. Recurrent falls with acute pain in the left foot with proximal phalangeal base fracture nondisplaced. Patient has been seen by orthopedics with plan for short boot to be maintained 2. End-stage renal disease on Saturday and Saturday. 3. Parkinson's disease. 4. Hypertension and hypertensive cardiovascular disease. 5. Hyperlipidemia. 6. Hypothyroidism. 7. Diabetes mellitus type 2. With recent A1c 7.0. 8. Bipolar disorder. 9. 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 10. Orthostatic hypotension continue patient on midodrine 10 mg orally Saturday and Saturday prior to dialysis. Hold for systolic blood pressure less than 115. 11. No code. 12. Disposition subacute rehab at [facility]. Greater than 35 minutes was utilized and coordinating patient's discharge. Impression and plan of care have been directed as dictated by the signing physician. Marci Morrell nurse practitioner acting as scribe for signing physician. Patient Condition at Discharge: Stable Plan - Discharge Summary New Discharge Prescriptions: Continue Levothyroxine Sodium [Synthroid] 200 mcg PO AC-BRKFST Escitalopram [Lexapro] 20 mg PO DAILY Fenofibrate 54 mg PO W/SUPPER Divalproex Sodium [Depakote] 1,000 mg PO W/SUPPER Carbidopa-Levodopa 25-250 mg [Sinemet 25-250 mg] 1 tab PO QID Folic Acid 0.8 mg PO DAILY Ferrous Sulfate [Iron (65 MG Elemental)] 325 mg PO DAILY Calcium Acetate 667mg Caps 667 mg PO AC-TID Acetaminophen [Tylenol] 325 - 650 mg PO Q4H PRN PRN Reason: Pain Or Fever > 100.5 Insulin Detemir [Levemir Flexpen] 8 units SQ HS Midodrine HCl [ProAmatine] 10 mg PO MOWEFR PRN #0 PRN Reason: before dialysis lamoTRIgine [LaMICtal] 150 mg PO W/SUPPER Divalproex [Depakote] 250 mg PO W/SUPPER Lovastatin [Mevacor] 40 mg PO W/SUPPER Mirtazapine 7.5 mg PO HS Omeprazole 20 mg PO DAILY Cyanocobalamin (Vitamin B-12) [Vitamin B-12] 1,000 mcg PO DAILY Baclofen [Lioresal] 5 mg PO BID PRN 30 Days #60 tab PRN Reason: Muscle Spasm Insulin Aspart [NovoLOG Flexpen] See Protocol SQ AC-TID Discharge Medication List Levothyroxine Sodium [Synthroid] 200 mcg PO AC-BRKFST 01/29/16 [History] Escitalopram [Lexapro] 20 mg PO DAILY 11/06/19 [History] Fenofibrate 54 mg PO W/SUPPER 02/19/22 [History] lamoTRIgine [LaMICtal] 150 mg PO W/SUPPER 01/30/23 [History] Carbidopa-Levodopa 25-250 mg [Sinemet 25-250 mg] 1 tab PO QID 07/09/23 [History] Divalproex Sodium [Depakote] 1,000 mg PO W/SUPPER 07/09/23 [History] Divalproex [Depakote] 250 mg PO W/SUPPER 07/09/23 [History] Folic Acid 0.8 mg PO DAILY 11/06/23 [History] Lovastatin [Mevacor] 40 mg PO W/SUPPER 11/06/23 [History] Mirtazapine 7.5 mg PO HS 11/06/23 [History] Ferrous Sulfate [Iron (65 MG Elemental)] 325 mg PO DAILY 11/29/23 [History] Calcium Acetate 667mg Caps 667 mg PO AC-TID 01/27/24 [History] Omeprazole 20 mg PO DAILY 01/27/24 [History] Cyanocobalamin (Vitamin B-12) [Vitamin B-12] 1,000 mcg PO DAILY 03/26/24 [History] Baclofen [Lioresal] 5 mg PO BID PRN 30 Days #60 tab 03/31/24 [Rx] Acetaminophen [Tylenol] 325 - 650 mg PO Q4H PRN 05/01/24 [History] Insulin Aspart [NovoLOG Flexpen] See Protocol SQ AC-TID 05/01/24 [History] Insulin Detemir [Levemir Flexpen] 8 units SQ HS 05/01/24 [History] Midodrine HCl [ProAmatine] 10 mg PO MOWEFR PRN #0 05/05/24 [Rx] Follow up Appointment(s)/Referral(s): Kimberly Gerardo MD [Primary Care Provider] - 1 Week ([facility]) Josiah Skinner DO [Doctor of Osteopathic Medicine] - 1 Week Discharge Disposition: TRANSFER TO SNF/ECF
[2024-05-05 11:40] LABS: Basophils # (A) 0.02 X 10*3/uL (0.00-0.10); Basophils % (A) 0.5 %; Eosinophils # (A) 0.09 X 10*3/uL (0.04-0.35); Eosinophils % (A) 2.3 %; HCT 31.5 % (39.6-50.0); HGB 10.2 g/dL (13.0-17.0); Lymphocytes # (A) 2.06 X 10*3/uL (0.90-5.00); Lymphocytes % (A) 52.4 %; MCH 32.5 pg (27.0-32.0); MCHC 32.4 g/dL (32.0-37.0); MCV 100.3 FL (80.0-97.0); Mean Platelet Volume 9.2 FL (9.5-12.2); Monocytes % (A) 7.6 %; NRBC Per 100 WBC 0 X 10*3/uL (0.00-0.01); Neutrophils # (A) 1.44 X 10*3/uL (1.80-7.70); Neutrophils % (A) 36.7 %; Platelet Count 120 X 10*3/uL (140-440); RBC 3.14 X 10*6/uL (4.40-5.60); RDW 15.3 % (11.5-14.5); WBC 3.93 X 10*3/uL (4.50-10.00)
[2024-05-05 11:59] LABS: ALT <5 U/L (10-49); AST 20 U/L (14-35); Albumin 3.3 g/dL (3.8-4.9); Albumin/Globulin Ratio 1.65 Ratio (1.60-3.17); Alkaline Phosphatase 82 U/L (41-126); BUN/Creat Ratio 7.55 Ratio (12.00-20.00); Blood Urea Nitrogen 28.7 mg/dL (9.0-27.0); Calcium 8.7 mg/dL (8.7-10.3); Carbon Dioxide 31.1 mmol/L (21.6-31.8); Chloride 98 mmol/L (96-109); Glucose 86 mg/dL (70-110); Potassium 4.6 mmol/L (3.5-5.5); Sodium 137 mmol/L (135-145); Total Bilirubin 0.3 mg/dL (0.3-1.2); Total Protein 5.3 g/dL (6.2-8.2)
[2024-05-05 12:29] LABS: Glucose,Whole Blood 117 mg/dL (70-110)
[2024-05-05 17:13] LABS: Glucose,Whole Blood 173 mg/dL (70-110)
== END 2024-05-05 17:26 | DRG 562 ==
LOC: EC 12:19 → 5NMEDONC 14:57 → OBSVTOIN 05-04 19:14
PROVIDERS: ADMIT Internal Medicine; ATTEND Internal Medicine
DX: S92.402A Displaced unspecified fracture of left great toe, initial encounter for closed fracture (principal); N18.6 End stage renal disease; N17.9 Acute kidney failure, unspecified; M89.8X9 Other specified disorders of bone, unspecified site; R29.6 Repeated falls; Y92.009 Unspecified place in unspecified non-institutional (private) residence as the place of occurrence of the external cause; I95.1 Orthostatic hypotension; I25.10 Atherosclerotic heart disease of native coronary artery without angina pectoris; H91.90 Unspecified hearing loss, unspecified ear; F41.9 Anxiety disorder, unspecified; D63.1 Anemia in chronic kidney disease; Z91.81 History of falling; E03.9 Hypothyroidism, unspecified; E78.5 Hyperlipidemia, unspecified; G20.A1 Parkinson's disease without dyskinesia, without mention of fluctuations; F31.9 Bipolar disorder, unspecified; E11.22 Type 2 diabetes mellitus with diabetic chronic kidney disease; Z79.4 Long term (current) use of insulin; Z79.890 Hormone replacement therapy; Z79.899 Other long term (current) drug therapy; W19.XXXA Unspecified fall, initial encounter; Z82.49 Family history of ischemic heart disease and other diseases of the circulatory system; Z99.2 Dependence on renal dialysis; Z83.3 Family history of diabetes mellitus; Z98.42 Cataract extraction status, left eye; Z98.41 Cataract extraction status, right eye
CPT/HCPCS: 36415; 80048; 80053; 82550; 83036; 83605; 83880; 84100; 85025; 90935; 93005; 99285

== ENCOUNTER → 2024-06-10 | Outpatient (CLI) | payer MEDICARE, BC | END | disposition home or self-care (01) | LOC: LABPRL 12:34 | PROVIDERS: ATTEND Internal Medicine | DX: I10 Essential (primary) hypertension (principal); E11.9 Type 2 diabetes mellitus without complications; E03.9 Hypothyroidism, unspecified; D64.9 Anemia, unspecified | CPT/HCPCS: 80175; 82140; 82607; 82746; 83540 ==

== ENCOUNTER 2024-09-22 17:25 | Emergency (ER) | payer MEDICARE, BC, OTHER ==
--- NOTE | 2024-09-22 17:42 | ED ---
Abdominal Pain HPI - General Stated Complaint: CONSTIPATION Time Seen by Provider: 09/22/24 17:34 Source: patient, family Mode of arrival: wheelchair Limitations: no limitations - History of Present Illness Initial Comments: This is an 79-year-old male with history of ESRD complaining of worsening mid abdominal pain x 1 day. Patient states that he may be constipated with abdom inal pain possibly occurring for the last several weeks. Patient is coming from [facility] where it was recorded that he had a bowel movement earlier today. Patient endorses significant straining without bowel movement. Patient states he has a fistula in his right arm. Patient denies fever, chills, urinary symptoms, nausea, vomiting. MD Complaint: abdominal pain Onset/Timin -: days(s) Location: periumbilical, suprapubic Radiation: none Migration to: no migration Severity: moderate Consistency: constant - Related Data Home Medications Medication Instructions Recorded Confirmed Levothyroxine Sodium [Synthroid] 200 mcg PO AC-BRKFST 01/29/16 05/01/24 Escitalopram [Lexapro] 20 mg PO DAILY 11/06/19 05/01/24 Fenofibrate 54 mg PO W/SUPPER 02/19/22 05/01/24 lamoTRIgine [LaMICtal] 150 mg PO W/SUPPER 01/30/23 05/01/24 Carbidopa-Levodopa 25-250 mg 1 tab PO QID 07/09/23 05/01/24 [Sinemet 25-250 mg] Divalproex Sodium [Depakote] 1,000 mg PO W/SUPPER 07/09/23 05/01/24 Divalproex [Depakote] 250 mg PO W/SUPPER 07/09/23 05/01/24 Folic Acid 0.8 mg PO DAILY 11/06/23 05/01/24 Lovastatin [Mevacor] 40 mg PO W/SUPPER 11/06/23 05/01/24 Mirtazapine 7.5 mg PO HS 11/06/23 05/01/24 Ferrous Sulfate [Iron (65 MG 325 mg PO DAILY 11/29/23 05/01/24 Elemental)] Calcium Acetate 667mg Caps 667 mg PO AC-TID 01/27/24 05/01/24 Omeprazole 20 mg PO DAILY 01/27/24 05/01/24 Cyanocobalamin (Vitamin B-12) 1,000 mcg PO DAILY 03/26/24 05/01/24 [Vitamin B-12] Acetaminophen [Tylenol] 325 - 650 mg PO Q4H PRN 05/01/24 05/01/24 Insulin Aspart [NovoLOG Flexpen] See Protocol SQ AC-TID 05/01/24 05/01/24 Insulin Detemir [Levemir Flexpen] 8 units SQ HS 05/01/24 05/01/24 Previous Rx's Medication Instructions Recorded Baclofen [Lioresal] 5 mg PO BID PRN 30 Days #60 tab 03/31/24 Midodrine HCl [ProAmatine] 10 mg PO MOWEFR PRN #0 05/05/24 Allergies Allergy/AdvReac Type Severity Reaction Status Date / Time codeine AdvReac Sensitive Verified 09/22/24 17:34 to meds,slurred speech, unsteady on feet, confused Review of Systems ROS Statement: Those systems with pertinent positive or pertinent negative responses have been documented in the HPI. ROS Other: All systems not noted in ROS Statement are negative. Past Medical History Past Medical History: Diabetes Mellitus, Hearing Disorder / Deafness, Hyperlipidemia, Osteoarthritis (OA), Renal Disease, Sleep Apnea/CPAP/BIPAP, Thyroid Disorder Additional Past Medical History / Comment(s): Heart murmur, Parkinson's, CPAP use, hard of hearing; dailysis MWF, right arm fistula History of Any Multi-Drug Resistant Organisms: None Reported Past Surgical History: Orthopedic Surgery, Tonsillectomy Additional Past Surgical History / Comment(s): Bilateral knee surgery, left foot bone spur, right cataract removed, left shoulder arthroscopy, peritoneal dialysis catheter placed now removed. fistula placement for dialysis Past Anesthesia/Blood Transfusion Reactions: Previous Problems w/ Anesthesia Additional Past Anesthesia/Blood Transfusion Reaction / Comment(s): slow to wake and glucose tends to drop Past Psychological History: Anxiety, Bipolar, Depression Smoking Status: Former smoker Past Alcohol Use History: None Reported Past Drug Use History: None Reported - Past Family History Father Family Medical History: Cancer Mother Additional Family Medical History / Comment(s): Mother at age 74 from heart failure. Brother(s) Additional Family Medical History / Comment(s): Patient has one brother and one sister both have diabetes. Patient's 3 children with no major medical problems. General Exam - General Exam Comments Initial Comments: Visual Physical Exam Vital signs reviewed General: Well-appearing, nontoxic, no acute distress. Patient seated in wheelchair Head: Normocephalic, atraumatic Eyes: PERRLA, EOMI ENT: Airway patent Chest: Nonlabored breathing Skin: No visual rash, normal skin tone Neuro: Alert Musculoskeletal: No gross abnormalities General appearance: alert, in no apparent distress Head exam: Present: atraumatic, normocephalic, normal inspection Eye exam: Present: normal appearance, PERRL, EOMI. Absent: scleral icterus, c onjunctival injection, periorbital swelling ENT exam: Present: normal exam, mucous membranes moist Neck exam: Present: normal inspection. Absent: tenderness, meningismus, lymphadenopathy Respiratory exam: Present: normal lung sounds bilaterally. Absent: respiratory distress, wheezes, rales, rhonchi, stridor Cardiovascular Exam: Present: regular rate, normal rhythm, normal heart sounds. Absent: systolic murmur, diastolic murmur, rubs, gallop, clicks GI/Abdominal exam: Present: soft, tenderness (Hypogastric abdominal tenderness without rebound tenderness), hypoactive bowel sounds. Absent: distended, guarding, rebound, rigid Rectal exam: Present: fecal impaction Extremities exam: Present: normal inspection, full ROM, normal capillary refill. Absent: tenderness, pedal edema, joint swelling, calf tenderness Back exam: Present: normal inspection Neurological exam: Present: alert, oriented X3, CN II-XII intact Psychiatric exam: Present: normal affect, normal mood Skin exam: Present: warm, dry, intact, normal color. Absent: rash Course Vital Signs 09/22/24 09/23/24 17:37 01:28 Temperature 97.5 F L 97.6 F Pulse Rate 76 83 Respiratory 18 16 Rate Blood Pressure 128/73 127/66 O2 Sat by Pulse 91 L 97 Oximetry Medical Decision Making - Medical Decision Making Was pt. sent in by a medical professional or institution (, DIANE, JUNIOR PROGRAMMER, urgent care, hospital, or alf...) When possible be specific @ -[facility] for lower abdominal pain Did you speak to anyone other than the patient for history (EMS, parent, family, police, friend...)? What history was obtained from this source @ -No Did you review nursing and triage notes (agree or disagree)? Why? @ -I reviewed and agree with nursing and triage notes Were old charts reviewed (outside hosp., previous admission, EMS record, old EKG, old radiological studies, urgent care reports/EKG's, alf records)? Report findings @ -No old charts were reviewed Differential Diagnosis (chest pain, altered mental status, abdominal pain women, abdominal pain men, vaginal bleeding, weakness, fever, dyspnea, syncope, headache, dizziness, GI bleed, back pain, seizure, CVA, palpatations, mental health, musculoskeletal)? @ -Differential Abdominal Pain Men: Appendicitis, cholecystitis, diverticulosis, ischemic bowel, pancreatitis, hepatitis, UTI, gastroenteritis, AAA, incarcerated hernia, bowel obstruction, constipation, inflammatory bowel, hepatitis, peptic ulcer disease, splenic infarction, perforated viscus, testicular torsion, this is not meant to be an all-inclusive list EKG interpreted by me (3pts min.). @ -Not done X-rays interpreted by me (1pt min.). @ -KUB shows nonspecific bowel gas pattern without notable air-fluid levels. CT interpreted by me (1pt min.). @ -Abdominal CT shows large fecal burden in rectum up to 7.1 cm wide. U/S interpreted by me (1pt. min.). @ -None done What testing was considered but not performed or refused? (CT, X-rays, U/S, labs)? Why? @ -None What meds were considered but not given or refused? Why? @ -None Did you discuss the management of the patient with other professionals (professionals i.e. , PA, JUNIOR PROGRAMMER, lab, RT, psych nurse, social sciences chair, director of academic, teacher, development officer, behavioral health case manager)? Give summary @ -Spoke to Dr. Gerardo of patient's condition who recommended p.o. magnesium citrate. Was smoking cessation discussed for >3mins.? @ -No Was critical care preformed (if so, how long)? @ -No Were there social determinants of health that impacted care today? How? (Homelessness, low income, unemployed, alcoholism, drug addiction, transportation, low edu. Level, literacy, decrease access to med. care, assisted, rehab)? @ -No Was there de-escalation of care discussed even if they declined (Discuss DNR or withdrawal of care, Hospice)? DNR status @ -No What co-morbidities impacted this encounter? (DM, HTN, Smoking, COPD, CAD, Cancer, CVA, ARF, Chemo, Hep., AIDS, mental health diagnosis, sleep apnea, mor bid obesity)? @ -None Was patient admitted / discharged? Hospital course, mention meds given and rou te, prescriptions, significant lab abnormalities, going to OR and other pertinent info. @ -Initial pulse ox on room air was 91%, improving to 97% on recheck. Initial lab work shows CKD with creatinine of 4.63 BUN of 28. Hemoglobin at 11.2. Initial lactic acid at 2.2 with a repeat of 1.63 hours later. KUB shows nonspecific bowel gas pattern without notable air-fluid levels. Abdominal CT shows large fecal burden in rectum up to 7.1 cm wide. Patient provided reduced dose of hydromorphone twice over length of stay for pain relief with subsequent decreased LOC and respiratory drive intact. After initial enema flushed minimal stool, manual fecal disimpaction attempted with several clots initially removed and remaining impaction unable to be reached by finger. Spoke to Dr. Gerardo of patient's condition who recommended p.o. magnesium citrate. Patient discharged and advised to continue use of MiraLAX and prune juice. Undiagnosed new problem with uncertain prognosis? @ -No Drug Therapy requiring intensive monitoring for toxicity (Heparin, Nitro, Insulin, Cardizem)? @ -No Were any procedures done? @ -Enema and manual disimpaction performed Diagnosis/symptom? @ -Constipation Acute, or Chronic, or Acute on Chronic? @ -Acute Uncomplicated (without systemic symptoms) or Complicated (systemic symptoms)? @ -Complicated Side effects of treatment? @ -No Exacerbation, Progression, or Severe Exacerbation? @ -No Poses a threat to life or bodily function? How? (Chest pain, [place], [place], pneumonia, PE, COPD, DKA, ARF, appy, cholecystitis, CVA, Diverticulitis, Homicidal, Nava icidal, threat to staff... and all critical care pts) @ -No - Lab Data Result diagrams: 09/22/24 20:01 09/22/24 20:01 Lab Results 09/22/24 09/22/24 09/22/24 Range/Units 20:01 20:01 20:01 WBC 9.7 (3.8-10.6) k/uL RBC 3.49 L (4.30-5.90) m/uL Hgb 11.2 L (13.0-17.5) gm/dL Hct 34.5 L (39.0-53.0) % MCV 98.9 (80.0-100.0) fL MCH 32.2 (25.0-35.0) pg MCHC 32.6 (31.0-37.0) g/dL RDW 13.9 (11.5-15.5) % Plt Count 234 (150-450) k/uL MPV 7.2 Neutrophils % 71 % Lymphocytes % 19 % Monocytes % 7 % Eosinophils % 2 % Basophils % 0 % Neutrophils # 6.9 (1.3-7.7) k/uL Lymphocytes # 1.9 (1.0-4.8) k/uL Monocytes # 0.7 (0-1.0) k/uL Eosinophils # 0.2 (0-0.7) k/uL Basophils # 0.0 (0-0.2) k/uL Sodium 139 (137-145) mmol/L Potassium 4.2 (3.5-5.1) mmol/L Chloride 97 L (98-107) mmol/L Carbon Dioxide 33 H (22-30) mmol/L Anion Gap 9 mmol/L BUN 28 H (9-20) mg/dL Creatinine 4.63 H (0.66-1.25) mg/dL Est GFR (CKD-EPI)AfAm 13 (>60 ml/min/1.73 sqM) Est GFR (CKD-EPI)NonAf 11 (>60 ml/min/1.73 sqM) Glucose 129 H (74-99) mg/dL Lactic Ac Sepsis Rflx Plasma Lactic Acid Mark 2.2 H* (0.7-2.0) mmol/L Calcium 9.8 (8.4-10.2) mg/dL Total Bilirubin 0.7 (0.2-1.3) mg/dL AST 17 (17-59) U/L ALT <6 (4-49) U/L Alkaline Phosphatase 92 (38-126) U/L Total Protein 6.8 (6.3-8.2) g/dL Albumin 4.0 (3.5-5.0) g/dL 09/22/24 09/22/24 Range/Units 20:48 23:13 WBC (3.8-10.6) k/uL RBC (4.30-5.90) m/uL Hgb (13.0-17.5) gm/dL Hct (39.0-53.0) % MCV (80.0-100.0) fL MCH (25.0-35.0) pg MCHC (31.0-37.0) g/dL RDW (11.5-15.5) % Plt Count (150-450) k/uL MPV Neutrophils % % Lymphocytes % % Monocytes % % Eosinophils % % Basophils % % Neutrophils # (1.3-7.7) k/uL Lymphocytes # (1.0-4.8) k/uL Monocytes # (0-1.0) k/uL Eosinophils # (0-0.7) k/uL Basophils # (0-0.2) k/uL Sodium (137-145) mmol/L Potassium (3.5-5.1) mmol/L Chloride (98-107) mmol/L Carbon Dioxide (22-30) mmol/L Anion Gap mmol/L BUN (9-20) mg/dL Creatinine (0.66-1.25) mg/dL Est GFR (CKD-EPI)AfAm (>60 ml/min/1.73 sqM) Est GFR (CKD-EPI)NonAf (>60 ml/min/1.73 sqM) Glucose (74-99) mg/dL Lactic Ac Sepsis Rflx Y Plasma Lactic Acid Mark 1.6 (0.7-2.0) mmol/L Calcium (8.4-10.2) mg/dL Total Bilirubin (0.2-1.3) mg/dL AST (17-59) U/L ALT (4-49) U/L Alkaline Phosphatase (38-126) U/L Total Protein (6.3-8.2) g/dL Albumin (3.5-5.0) g/dL Disposition Clinical Impression: Constipation, Fecal impaction in rectum Disposition: HOME SELF-CARE Condition: Good Instructions (If sedation given, give patient instructions): Constipation (ED) Additional Instructions: Return to ER if constipation does not resolve, abdominal pain worsens or does not improve in next 24 to 48 hours. Is patient prescribed a controlled substance at d/c from ED?: No Referrals: Kimberly Gearrdo MD [Primary Care Provider] - 1-2 days Time of Disposition: 00:50
--- NOTE | 2024-09-22 18:16 | XR ---
EXAMINATION TYPE: XR KUB DATE OF EXAM: 09/22/2024 6:01 PM COMPARISON: None CLINICAL INDICATION: Male, 79 years old with history of Mid abdominal pain, possible constipation; TECHNIQUE: One radiographic view of the abdomen was obtained. FINDINGS: There is a small stool burden, otherwise, the bowel gas pattern is nonspecific without dila lindsay loops of small or large bowel. . Fecal material and gas are demonstrated throughout the colon and rectum. There is no evidence for organomegaly or pneumoperitoneum. The osseous structures are intact. No ab normal calcifications are present. Multilevel degeneration changes by last perforation facet joint ar thropathy. IMPRESSION: Nonspecific bowel gas pattern without radiographic evidence for acute process. [facility], , 09/22/2024 6:13 PM
[2024-09-22 20:12] LABS: Basophils % (A) 0 %; Eosinophils # (A) 0.2 k/uL (0-0.7); Eosinophils % (A) 2 %; HCT 34.5 % (39.0-53.0); HGB 11.2 gm/dL (13.0-17.5); Lymphocytes # (A) 1.9 k/uL (1.0-4.8); Lymphocytes % (A) 19 %; MCH 32.2 pg (25.0-35.0); MCHC 32.6 g/dL (31.0-37.0); MCV 98.9 fL (80.0-100.0); Mean Platelet Volume 7.2; Monocytes # (A) 0.7 k/uL (0-1.0); Monocytes % (A) 7 %; Neutrophils # (A) 6.9 k/uL (1.3-7.7); Neutrophils % (A) 71 %; Platelet Count 234 k/uL (150-450); RBC 3.49 m/uL (4.30-5.90); RDW 13.9 % (11.5-15.5); WBC 9.7 k/uL (3.8-10.6)
[2024-09-22 20:21] LABS: ALT <6 U/L (4-49); AST 17 U/L (17-59); African American GFR (CKD) 13 (>60 ml/min/1.73 sqM); Alkaline Phosphatase 92 U/L (38-126); Anion Gap 9 mmol/L; Blood Urea Nitrogen 28 mg/dL (9-20); Calcium 9.8 mg/dL (8.4-10.2); Carbon Dioxide 33 mmol/L (22-30); Chloride 97 mmol/L (98-107); Glucose 129 mg/dL (74-99); Non-African American GFR(CKD) 11 (>60 ml/min/1.73 sqM); Potassium 4.2 mmol/L (3.5-5.1); Sodium 139 mmol/L (137-145); Total Bilirubin 0.7 mg/dL (0.2-1.3); Total Protein 6.8 g/dL (6.3-8.2)
--- NOTE | 2024-09-22 21:12 | CT ---
EXAMINATION TYPE: CT abdomen pelvis wo con DATE OF EXAM: 09/22/2024 8:45 PM COMPARISON: None CLINICAL INDICATION: Male, 79 years old with history of Diffuse abdominal pain; Pt to ED from [facility] for lower abdominal pain. Pt c/o constipation. Per [facility] report, pt had to large BMs today, but wanted to come to ED to get checked out. Unable to raise arms above head. TECHNIQUE: Axial CT abdomen pelvis wo con;Sagittal and coronal reformats were created on a separate workstation. Contrast used: mL of , (none if empty) Oral contrast used: without Oral Contrast (none if empty) CT DLP: 899.1 mGycm, Automated exposure control for dose reduction was used. FINDINGS: LOWER CHEST: Small left and trace right pleural effusion. Associated airspace opacities in left lung base. ABDOMEN LIVER: Unremarkable GALLBLADDER AND BILE DUCTS: Unremarkable. PANCREAS: Unremarkable. SPLEEN: Unremarkable. ADRENAL GLANDS: Unremarkable. KIDNEYS AND URETERS: No evidence of hydronephrosis. The ureters are unremarkable. Bilateral probable renal cysts Bilateral nonobstructing calculi. PELVIS BLADDER: No evidence for wall thickening or mass given limitations of exam. REPRODUCTIVE: Unremarkable. ABDOMEN & PELVIS STOMACH AND BOWEL: No evidence of bowel obstruction. Scattered colonic diverticula. Appendix is sayda l. Large stool burden in the rectum with fecal burden measuring up to 7.1 cm in transverse dimension. PERITONEUM/RETROPERITONEUM: No evidence of pneumoperitoneum or free fluid. VASCULATURE: Mild atherosclerotic calcifications are present throughout the abdominal aorta and its b ranches. No evidence of aortic aneurysm. MUSCULOSKELETAL: No acute osseous abnormalities. Moderate disc degeneration changes are present throu ghout the thoracolumbar spine. LYMPH NODES: No gross evidence for lymphadenopathy. SOFT TISSUE/ABDOMINAL WALL: Bilateral fat-containing inguinal hernias. IMPRESSION: 1. Large amount stool in the rectum. 2. Colonic diverticulosis without evidence of inflammation. 3. Bilateral fat-containing inguinal hernias. 4. Small left and trace right pleural effusion with associated atelectasis. 5. Left lower lung left opacities correlate for atelectasis versus developing pneumonia. [facility], Workstation: [id number], 09/22/2024 9:10 PM
[2024-09-22] MEDS: HYDROmorphone 0.5 MG/0.5 ML SYRINGE IVP STA ×2 (21:13→23:03)
[2024-09-23 01:30] VITALS: BP 127/66; PULSE 83; RESP 16; TEMP 97.6
[2024-09-23] MEDS: MAGNESIUM CITRATE 296 ML BOTTLE PO ONE (01:31)
== END 2024-09-23 01:47 | disposition home or self-care (01) ==
LOC: EC 17:25
DX: K57.30 Diverticulosis of large intestine without perforation or abscess without bleeding (principal); K56.41 Fecal impaction; N18.6 End stage renal disease; Z87.891 Personal history of nicotine dependence; Z88.5 Allergy status to narcotic agent; Z90.89 Acquired absence of other organs; Z99.2 Dependence on renal dialysis
CPT/HCPCS: 80053; 83605; 85025; 74018; 74176; 99284; 96374; 96376; J1171